=== PATIENT | female | born 1965 | race Caucasian/White ===

== ENCOUNTER → 2020-10-10 12:39 | Outpatient (CLI) | payer BC, SELFPAY ==
--- NOTE | 2020-10-10 12:44 | BI_ITS ---
MAMMOGRAPHY - BILATERAL SCREENING REASON FOR EXAM: Female, 55 years old. Routine annual screening examination. PERTINENT HISTORY: Non-contributory. TECHNIQUE: Digital bilateral breast minh (3D mammographic acquisition) in the CC and MLO projections. 2-D mediolateral oblique (MLO) and craniocaudad (CC) views of both breasts were obtained. CAD: Full Field Digital Mammography with Computer Added Detection was performed. COMPARISON: Comparison is made with prior outside examination dated 01/03/2015. FINDINGS: Breast Composition: The breasts are almost entirely fatty. There are no dominant masses or suspicious calcifications. Stable 5.6 mm well-defined nodule in the axillary region of the right breast suggestive of a small lymph node. No other significant abnormalities are identified. There has been no significant change since the prior study. BI/SCRN MAMM (CAD)W/MINH BILAT IMPRESSION: Stable bilateral screening mammogram. Yearly follow-up mammogram recommended. (A) ASSESSMENT CATEGORY: BIRADS Category 2: Benign. A letter regarding these results will be sent to the patient by the facility within 30 days. Approximately 10% of breast cancers are not detected by mammography. A normal mammogram should not delay biopsy of a clinically suspicious abnormality. [id number] Electronically Signed: Yony Stone MD at 11:20 EDT , Service support ,
== END ==
PROVIDERS: PCP Nurse Practitioner Family; Referring Provider Nurse Practitioner Family; Visit Provider Nurse Practitioner Family
DX: Z12.31 Encounter for screening mammogram for malignant neoplasm of breast (principal)
CPT/HCPCS: 77063; 77067

== ENCOUNTER 2021-08-28 17:00 | Outpatient (CLI) | payer BC, SELFPAY ==
[2021-08-28 17:28] LABS: Absolute Lymphocyte Count 2.41 X10^3/uL (0.83-4.51); Absolute Neutrophil Count 4.5 X10^3/uL (2.0-7.7); Basophil# 0.06 X10^3/uL; Basophil% 0.8 % (0-1); Eosinophil# 0.14 X10^3/uL; Eosinophils% 1.8 % (0-5); Hematocrit 41.7 % (37-47); Hemoglobin 14.7 g/dL (12.0-15.0); Lymphocyte # 2.41 X10^3/ul (0.83-4.51); Lymphocyte % 31.3 % (19-41); Mean Corp Hgb Conc 35.3 g/dL (32-36); Mean Corpuscular Hgb 31.4 pg (27.0-32.0); Mean Corpuscular Volume 89.1 fL (81-99); Mean Platelet Vol. 9.9 fl (6.2-12.0); Monocyte# 0.53 X10^3/uL; Monocyte% 6.9 % (0-10); NRBC Flagged by Analyzer 0 % (0-5); Neutrophil # 4.54 X10^3/uL (2.7-7.7); Neutrophil % 58.8 % (47-70); Platelet Count 197 K/mm3 (150-450); RBC Distribution Width CV 12.8 % (11.6-14.6); RBC Distribution Width SD 41.8 fl (35.1-43.9); Red Blood Count 4.68 M/mm3 (4.2-5.4); White Blood Count 7.7 K/mm3 (4.4-11.0)
[2021-08-28 17:57] LABS: ALB/GLOB Ratio 1.2 RATIO (0.9-2.4); AST(SGOT) 28 U/L (15-37); Alanine Aminotransfer ALT/SGPT 36 U/L (13-56); Albumin, Serum 4.3 g/dL (3.2-5.0); Alkaline Phosphatase 76 U/L (45-117); Anion Gap 2 (5-15); BUN 20 mg/dL (7-18); BUN/Creat Ratio 22.1 RATIO (10-20); Calcium,Total 9.2 mg/dL (8.5-10.1); Chloride 112 mmol/L (98-107); EST Glomerular Filtration Rate 69 mL/min (>60); Est Glom Filt Rate - Afr Amer 83 mL/min (>60); Globulin 3.5 g/dL (2.2-4.2); Glucose 93 mg/dL (74-106); Potassium 4.2 mmol/L (3.5-5.1); Protein, Total 7.8 g/dL (6.4-8.2); Sodium Level 141 mmol/L (136-145); Thyroid Stim Hormone (TSH) 1.29 uIU/mL (0.358-3.74)
[2021-08-29 09:12] LABS: Hepatitis C Antibody Non-Reactive (Nonreactive); Vitamin D,25 Hydroxy 49.9 ng/mL
== END 2021-08-28 23:59 | disposition home or self-care (01) ==
LOC: POLAB3 17:02
PROVIDERS: PCP Family Medicine Geriatric Medicine; Visit Provider Family Medicine Geriatric Medicine
DX: Z13.89 Encounter for screening for other disorder (principal); R53.83 Other fatigue; E55.9 Vitamin D deficiency, unspecified
CPT/HCPCS: 36415; 80053; 82306; 84443; 85025; 86803

== ENCOUNTER 2021-10-12 09:52 | Outpatient (CLI) | payer BC, SELFPAY ==
--- NOTE | 2021-10-12 09:54 | BI_ITS ---
MAMMOGRAPHY - BILATERAL SCREENING REASON FOR EXAM: Female, 56 years old. Routine annual screening examination. PERTINENT HISTORY: Non-contributory. TECHNIQUE: Digital bilateral breast minh (3D mammographic acquisition) in the CC and MLO projections. 2-D mediolateral oblique (MLO) and craniocaudad (CC) views of both breasts were obtained. CAD: Full Field Digital Mammography with Computer Added Detection was performed. COMPARISON: Comparison is made with prior study dated 10/10/2020. FINDINGS: Breast Composition: The breasts are almost entirely fatty. There are no dominant masses or suspicious calcifications. Stable 5.6 mm well-defined nodule in the axillary region of the right breast this most likely represents a small intramammary lymph node. No other significant abnormalities are identified. There has been no significant change since the prior study. BI/SCRN MAMM (CAD)W/MINH BILAT IMPRESSION: Stable bilateral screening mammogram. Yearly follow-up mammogram recommended. (A) ASSESSMENT CATEGORY: BIRADS Category 2: Benign. A letter regarding these results will be sent to the patient by the facility within 30 days. Approximately 10% of breast cancers are not detected by mammography. A normal mammogram should not delay biopsy of a clinically suspicious abnormality. [id number] Electronically Signed: Yony Stone MD at 11:15 EDT ,
== END 2021-10-12 23:59 | disposition home or self-care (01) ==
LOC: OPBI 09:53
PROVIDERS: PCP Family Medicine Geriatric Medicine; Visit Provider Family Medicine Geriatric Medicine
DX: Z12.31 Encounter for screening mammogram for malignant neoplasm of breast (principal)
CPT/HCPCS: 77063; 77067

== ENCOUNTER → 2022-08-30 | Outpatient (CLI) | payer BC, SELFPAY ==
[2022-08-30 17:13] LABS: Absolute Lymphocyte Count 1.95 X10^3/uL (0.83-4.51); Absolute Neutrophil Count 2.8 X10^3/uL (2.0-7.7); Basophil# 0.05 X10^3/uL; Basophil% 0.9 % (0-1); Eosinophil# 0.09 X10^3/uL; Eosinophils% 1.7 % (0-5); Hematocrit 43.9 % (37-47); Hemoglobin 14.4 g/dL (12.0-15.0); Lymphocyte # 1.95 X10^3/ul (0.83-4.51); Lymphocyte % 36.8 % (19-41); Mean Corp Hgb Conc 32.8 g/dL (32-36); Mean Corpuscular Hgb 29.7 pg (27.0-32.0); Mean Corpuscular Volume 90.5 fL (81-99); Mean Platelet Vol. 10.9 fl (6.2-12.0); Monocyte# 0.39 X10^3/uL; Monocyte% 7.4 % (0-10); NRBC Flagged by Analyzer 0 % (0-5); Neutrophil # 2.81 X10^3/uL (2.7-7.7); Platelet Count 187 K/mm3 (150-450); RBC Distribution Width CV 12.7 % (11.6-14.6); RBC Distribution Width SD 41.4 fl (35.1-43.9); Red Blood Count 4.85 M/mm3 (4.2-5.4); White Blood Count 5.3 K/mm3 (4.4-11.0)
[2022-08-30 17:32] LABS: Vitamin D,25 Hydroxy 65.4 ng/mL
[2022-08-30 17:46] LABS: ALB/GLOB Ratio 1.2 RATIO (0.9-2.4); AST(SGOT) 19 U/L (15-37); Alanine Aminotransfer ALT/SGPT 26 U/L (13-56); Albumin, Serum 4.2 g/dL (3.2-5.0); Alkaline Phosphatase 77 U/L (45-117); Anion Gap 7 (5-15); BUN 24 mg/dL (7-18); Calcium,Total 9.8 mg/dL (8.5-10.1); Chloride 110 mmol/L (98-107); Creatinine, Serum 0.96 mg/dL (0.55-1.02); EST Glomerular Filtration Rate 64 mL/min (>60); Est Glom Filt Rate - Afr Amer 77 mL/min (>60); Globulin 3.5 g/dL (2.2-4.2); Glucose 84 mg/dL (74-106); Potassium 4.2 mmol/L (3.5-5.1); Protein, Total 7.7 g/dL (6.4-8.2); Sodium Level 142 mmol/L (136-145); Thyroid Stim Hormone (TSH) 0.52 uIU/mL (0.358-3.74)
== END | disposition home or self-care (01) ==
LOC: POLAB3 13:02
PROVIDERS: PCP Family Medicine Geriatric Medicine; Visit Provider Family Medicine Geriatric Medicine
DX: R53.83 Other fatigue (principal); E55.9 Vitamin D deficiency, unspecified
CPT/HCPCS: 36415; 80053; 82306; 84443; 85025

== ENCOUNTER → 2023-02-21 | Outpatient (CLI) | payer BC, SELFPAY ==
[2023-02-21 17:02] LABS: Absolute Lymphocyte Count 2.02 X10^3/uL (0.83-4.51); Absolute Neutrophil Count 2.3 X10^3/uL (2.0-7.7); Basophil# 0.04 X10^3/uL; Basophil% 0.8 % (0-1); Eosinophil# 0.06 X10^3/uL; Eosinophils% 1.3 % (0-5); Hematocrit 41.9 % (37-47); Hemoglobin 13.8 g/dL (12.0-15.0); Lymphocyte # 2.02 X10^3/ul (0.83-4.51); Lymphocyte % 42.8 % (19-41); Mean Corp Hgb Conc 32.9 g/dL (32-36); Mean Corpuscular Hgb 29.7 pg (27.0-32.0); Mean Corpuscular Volume 90.1 fL (81-99); Mean Platelet Vol. 10.2 fl (6.2-12.0); Monocyte# 0.34 X10^3/uL; Monocyte% 7.2 % (0-10); NRBC Flagged by Analyzer 0 % (0-5); Neutrophil # 2.25 X10^3/uL (2.7-7.7); Neutrophil % 47.7 % (47-70); Platelet Count 189 K/mm3 (150-450); RBC Distribution Width CV 12.6 % (11.6-14.6); RBC Distribution Width SD 41.3 fl (35.1-43.9); Red Blood Count 4.65 M/mm3 (4.2-5.4); White Blood Count 4.7 K/mm3 (4.4-11.0)
[2023-02-21 17:24] LABS: ALB/GLOB Ratio 1.2 RATIO (0.9-2.4); AST(SGOT) 18 U/L (15-37); Alanine Aminotransfer ALT/SGPT 21 U/L (13-56); Albumin, Serum 3.9 g/dL (3.2-5.0); Alkaline Phosphatase 70 U/L (45-117); Anion Gap 7 (5-15); BUN 15 mg/dL (7-18); BUN/Creat Ratio 18.8 RATIO (10-20); Calcium,Total 8.9 mg/dL (8.5-10.1); Chloride 111 mmol/L (98-107); EST Glomerular Filtration Rate 79 mL/min (>60); Est Glom Filt Rate - Afr Amer 95 mL/min (>60); Globulin 3.3 g/dL (2.2-4.2); Glucose 108 mg/dL (74-106); Potassium 3.8 mmol/L (3.5-5.1); Protein, Total 7.2 g/dL (6.4-8.2); Sodium Level 143 mmol/L (136-145); Thyroid Stim Hormone (TSH) 0.33 uIU/mL (0.358-3.74)
== END | disposition home or self-care (01) ==
PROVIDERS: PCP Family Medicine Geriatric Medicine; Visit Provider Family Medicine Geriatric Medicine
DX: R53.83 Other fatigue (principal)
CPT/HCPCS: 36415; 80053; 84443; 85025

== ENCOUNTER 2023-07-24 09:20 | Inpatient (IN) | payer BC, SELFPAY ==
[2023-07-24] VITALS (18 sets, daily range): BP systolic 85–129; BP diastolic 55–108; PULSE 97–183; RESP 17–27; TEMP 35.5–36.7; O2SAT 95–100; BMI 31.8; BMI 31.5
--- NOTE | 2023-07-24 09:44 | EKG12_ITS ---
Test Reason : NECK PAIN Blood Pressure : / mmHG Vent. Rate : 183 BPM Atrial Rate : 000 BPM P-R Int : 000 ms QRS Dur : 070 ms QT Int : 242 ms P-R-T Axes : 000 -06 033 degrees QTc Int : 422 ms Critical Test Result: High HR Atrial fibrillation with rapid ventricular response Nonspecific T wave abnormality Abnormal ECG Confirmed by ZOEY PEÑALOZA, CORINE ([id number]), proposal editor ELHAM MIXON ([id number]) on 07/26/2023 6:56:19 AM Referred By: RU/PL Confirmed By:CORINE GREER MD
--- NOTE | 2023-07-24 09:47 | NURSING ---
NO OLD EKGS
--- NOTE | 2023-07-24 09:49 | EDS_ITS ---
HPI History of Present Illness Chief Complaint: Other, Pain/Inj Informant: patient and spouse/S.O. Narrative Narrative: Patient presents with palpitations. She states she thinks this is probably been going on at least a couple days. But she is not sure of the specific onset. She is on metoprolol for years related to nonspecific tachycardia that sounds like it may have been diagnosed when she was diagnosed with hypothyroidism. But she has never had A-fib, atrial flutter, SVT or other specific tachycardic rhythm that she knows of. She has never had heart disease or stents. Last check of her thyroid function was about 6 months ago. She has no chest pain. Sitting still she is not dyspneic. But if she walks up the hill or significant exertion she feels more short of breath than she normally would. She is a send actually asymptomatic sitting in bed other than feeling her rate go a little quick. She states there is a very strong family history of atrial fibrillation but she has never had it. PFSH [facility] Home Medications metoprolol succinate 25 mg tablet,extended release 24 hr 25 mg PO DAILY 07/24/23 [History Last Taken Unknown] thyroid (pork) 60 mg tablet ([place] Thyroid) 60 mg PO DAILY 07/24/23 [History Last Taken Unknown] Allergy/AdvReac Type Severity Reaction Status Date / Time No Known Allergies Allergy Verified 07/24/23 09:51 Social History Smoking Status: Never smoker ROS ROS ED ROS Narrative A complete review of systems was performed and is negative except as documented in the history of present illness. Some specific details below. Constitutional: No recent fevers or chills. Has not felt ill. EYE: No discharge, visual complaints, or pain. ENT: No difficulty swallowing. No swelling. No pain. No reflux symptoms. CV: See history of present illness. Respiratory: See history of present illness. Only short of breath with more significant exertion. Then it calms down when she rests. GI: No abdominal pain. No nausea vomiting diarrhea. No blood in stool. : No frequency dysuria or hematuria. Musculoskeletal: No recent trauma. No pains. No swelling. Skin: No rash. Nondiaphoretic. Neuro: No weakness or numbness. Endocrine: No polyuria or polydipsia. EXAM Physical Exam Narrative Exam Narrative: CONSTITUTIONAL: Patient is nontoxic in appearance. The patient looks comfortable. Work of breathing looks normal. Patient actually looks very calm in bed. Despite her high heart rate she looks amazingly comfortable. HEENT: No notable trauma. Mucous membranes moist. No sinus tenderness. No indication of pain with swallowing. EYES: No conjunctival injection. No proptosis. NECK:No JVD. No stridor. CARDIOVASCULAR: Tachycardic rate. Irregular rhythm. No notable murmur. No JVD. RESPIRATORY: No respiratory distress. Breathing is unlabored. No wheezes. No rhonchi. No rales at either base. No pain with a deep breath. No chest wall tenderness. GASTROINTESTINAL: Not distended. Bowel sounds are normal. No tenderness. No guarding. No rebound. No palpable mass. No bruit is heard. GENITOURINARY: No tenderness over the bladder. No CVA tenderness. MUSCULOSKELETAL: Atraumatic. No peripheral edema. No cord. No tenderness along the deep venous system. No asymmetry. No distended veins. NEUROLOGICAL: Patient is alert and appropriate. No focal deficit noted. SKIN: No noted rashes. No diaphoresis. PSYCHIATRIC: Patient is calm. Mood is appropriate. Const Vital Signs: 07/24/23 09:23 07/24/23 09:57 07/24/23 09:58 Temperature 95.9 F L Temperature Source Temporal Pulse Rate 183 H 173 H Respiratory Rate 18 19 H Respiratory Effort Short of Breath Respiratory Pattern Tachypnea Blood Pressure 129/95 H 104/84 H Blood Pressure Mean 106 90 Blood Pressure Source Blood Pressure Position Blood Pressure Location Pulse Ox 100 97 Oxygen Delivery Method Room Air Room Air 07/24/23 10:09 07/24/23 10:39 Temperature Temperature Source Pulse Rate 179 H 157 H Respiratory Rate 19 H 27 H Respiratory Effort Respiratory Pattern Blood Pressure 129/88 H 126/108 H Blood Pressure Mean 101 114 Blood Pressure Source Monitor Monitor Blood Pressure Position Sitting Sitting Blood Pressure Location Right Arm Right Arm Pulse Ox 97 96 Oxygen Delivery Method Room Air Room Air MDM MDM MDM Narrative Medical decision making narrative: Patient CBC is normal including no anemia. Knoop Patient's electrolytes are overall unremarkable. Glucose is minimally up at 112. Her troponin is negative at 5 despite what seems to be likely a couple days of symptoms. Her TSH happily is normal at 0.92. My independent interpretation of the patient's single view chest x-ray shows mild eventration of the right diaphragm final reading is similar. Patient was started on diltiazem. She is already on a low-dose of metoprolol 25 mg with which she took this morning. As we are able to adjust diltiazem a little easier we did start this. Her heart rate is down from mid 180s to about 145/155. She is still in atrial fibrillation. Her blood pressure is also come down with this a little bit. We have gotten her some fluids. She is not toxic. She is still very comfortable. We will have to slowly bring her rate down. But I think she is stable for admission. She has had almost a 20% reduction when I was in the room of her heart rate. I did discuss the case with hospitalist. With her being on oral meds, nausea now IV drip, moderate response but slight decrease of blood pressure she will be a full admission. Lab Data Attestation: I reviewed the patient's lab results. Labs: Laboratory Results - last 24 hr 07/24/23 09:49 WBC 6.3 RBC 4.78 Hgb 14.2 Hct 41.9 MCV 87.7 MCH 29.7 MCHC 33.9 RDW Std Deviation 40.9 RDW Coeff of Rich 12.9 Plt Count 209 MPV 10.7 Immature Gran % (Auto) 0.300 Neut % (Auto) 61.3 Lymph % (Auto) 30.1 [place] % (Auto) 6.7 Eos % (Auto) 1.0 Baso % (Auto) 0.6 Absolute Neuts (auto) 3.9 Absolute Lymphs (auto) 1.89 Nucleated RBC % 0 PT 13.3 INR 1.0 APTT 27.1 Sodium 143 Potassium 4.0 Chloride 117 H Carbon Dioxide 20.0 L Anion Gap 6 BUN 18 Creatinine 1.01 Estim Creat Clear Calc 66.82 Est GFR (MDRD) Af Amer 72 Est GFR (MDRD) Non-Af 60 BUN/Creatinine Ratio 17.8 Glucose 112 H Calcium 9.7 Troponin I High Sens 5 TSH 0.92 Radiography Diagnostic Testing: Clinical Impression(s) from Imaging Studies Chest X-Ray 07/24/23 10:00 IMPRESSION: Elevation of the right hemidiaphragm. The lungs are clear. Electronically Signed: Yony Stone MD at 10:25 EST , EKG Initial EKG: Comments: A my independent interpretation of her EKG shows atrial fibrillation with a rate at 183. No ventricular ectopy noted. Despite the high rate, no significant ST elevation or depression. QRS duration and QTc are measured as normal. Discharge Plan Dx/Rx/DC Orders Clinical Impression: Hx of thyroid disease, Family history of atrial dilatation, Atrial fibrillation with rapid ventricular response Disposition Disposition: Acute Care Hospital [facility]
[2023-07-24 09:58] LABS: Absolute Lymphocyte Count 1.89 X10^3/uL (0.83-4.51); Absolute Neutrophil Count 3.9 X10^3/uL (2.0-7.7); Basophil# 0.04 X10^3/uL; Basophil% 0.6 % (0-1); Eosinophil# 0.06 X10^3/uL; Hematocrit 41.9 % (37-47); Hemoglobin 14.2 g/dL (12.0-15.0); Lymphocyte # 1.89 X10^3/ul (0.83-4.51); Lymphocyte % 30.1 % (19-41); Mean Corp Hgb Conc 33.9 g/dL (32-36); Mean Corpuscular Hgb 29.7 pg (27.0-32.0); Mean Corpuscular Volume 87.7 fL (81-99); Mean Platelet Vol. 10.7 fl (6.2-12.0); Monocyte# 0.42 X10^3/uL; Monocyte% 6.7 % (0-10); NRBC Flagged by Analyzer 0 % (0-5); Neutrophil # 3.85 X10^3/uL (2.7-7.7); Neutrophil % 61.3 % (47-70); Platelet Count 209 K/mm3 (150-450); RBC Distribution Width CV 12.9 % (11.6-14.6); RBC Distribution Width SD 40.9 fl (35.1-43.9); Red Blood Count 4.78 M/mm3 (4.2-5.4); White Blood Count 6.3 K/mm3 (4.4-11.0)
--- NOTE | 2023-07-24 10:00 | RAD_ITS ---
STUDY: X-RAY CHEST REASON FOR EXAM: Female, 57 years old. sob TECHNIQUE: Single AP portable view of the chest. COMPARISON: None. FINDINGS: EKG electrodes are seen. Elevation of the right hemidiaphragm. There is no demonstrated pleural abnormality. Normal size heart. Normal mediastinum and fany. Normal visualized pulmonary arteries. Normal visualized aortic arch and descending thoracic aorta. There are degenerative changes of the visualized thoracic spine. Normal visualized ribs, clavicles, and shoulders. There is no demonstrated abnormality of the visualized soft tissue structures of the upper abdomen. RAD/Chest 1 View (Portable) IMPRESSION: Elevation of the right hemidiaphragm. The lungs are clear. Electronically Signed: Yony Stone MD at 10:25 EST ,
[2023-07-24] MEDS: 0.9% Normal Saline (1000mL) 1,000 ML 1000 ML IV (10:08)
[2023-07-24] MEDS: Diltiazem 125 MG in Dextrose 5%-Water (100mL Bag) 100 ML CONT INF (10:09)
[2023-07-24 10:13] LABS: Prothrombin Time (Protime)PT. 13.3 SECONDS (11.7-14.9)
[2023-07-24 10:14] LABS: Partial Thromboplast Time 27.1 Seconds (24.1-36.2)
[2023-07-24 10:23] LABS: Anion Gap 6 (5-15); BUN 18 mg/dL (7-18); BUN/Creat Ratio 17.8 RATIO (10-20); Calcium,Total 9.7 mg/dL (8.5-10.1); Chloride 117 mmol/L (98-107); Creatinine, Serum 1.01 mg/dL (0.55-1.02); EST Glomerular Filtration Rate 60 mL/min (>60); Est Glom Filt Rate - Afr Amer 72 mL/min (>60); Estimated Creatinine Clearance 66.82 ml/min; Glucose 112 mg/dL (74-106); Sodium Level 143 mmol/L (136-145); Thyroid Stim Hormone (TSH) 0.92 uIU/mL (0.358-3.74); Troponin-I HS 5 pg/mL (3.0-54.0)
--- NOTE | 2023-07-24 11:13 | NURSING ---
DR MICKY TALBERT
--- NOTE | 2023-07-24 11:18 | HP.PCM.HOS_ITS ---
HPI - General General Date of Admission: 07/24/23 Date of Service: 07/24/23 Chief Complaint: Lightheadedness HPI Narrative FIONA LEES, is a 57 F who presents with lightheadedness. Patient has past medical history significant for hypothyroidism for which patient takes [place] Thyroid. Patient also has history of supraventricular tachycardia for which she is on beta-blockers. Patient symptoms started 4 days prior. Woke up on the morning of 07/21/2023 feeling weird. Had recurrence over the next couple of days. On the morning of admission woke up feeling lightheadedness. Patient has a son who is apparently a nurse who did check outpatient and felt patient was in A-fib patient was therefore sent to the ED. In the emergency department EKG obtained demonstrated A-fib with RVR patient started on Cardizem drip admitted to a monitored bed for further management [facility] Home Medications metoprolol succinate 25 mg tablet,extended release 24 hr 25 mg PO DAILY BLOOD PRESSURE 07/24/23 [History Last Taken Unknown] thyroid (pork) 60 mg tablet ([place] Thyroid) 60 mg PO DAILY THYROID 07/24/23 [History Last Taken Unknown] Allergy/AdvReac Type Severity Reaction Status Date / Time No Known Allergies Allergy Verified 07/24/23 09:51 Social History Smoking Status: Never smoker ROS ROS Narrative GENERAL: denies fever, chills, night sweats, weight loss, anorexia HEENT: denies headache, sinus congestion, or drainage, dysphagia RESPIRATORY: denies cough, sputum production, shortness of breath, CARDIAC: denies chest pain, orthopnea, PND GASTROINTESTINAL: denies abdominal pain, nausea, vomiting, melena, GENITOURINARY: denies dysuria, urgency, frequency, heamaturia EXTREMITY: denies swelling MUSCULOSKELETAL: denies current joint pain or tenderness NEUROLOGIC: denies focal numbness, weakness, tingling HEMATOLOGIC: denies easy bruising and/or hemorrhage INTEGUMENT: denies rashes PSYCHIATRIC: denies suicidal or homicidal ideation Vital Signs Vital Signs Vital Signs: 07/24/23 09:23 07/24/23 09:57 07/24/23 09:58 Temperature 95.9 F L Temperature Source Temporal Pulse Rate 183 H 173 H Respiratory Rate 18 19 H Respiratory Effort Short of Breath Respiratory Pattern Tachypnea Blood Pressure 129/95 H 104/84 H Blood Pressure Mean 106 90 Blood Pressure Source Blood Pressure Position Blood Pressure Location Pulse Ox 100 97 Oxygen Delivery Method Room Air Room Air 07/24/23 10:09 07/24/23 10:39 07/24/23 11:14 Temperature Temperature Source Pulse Rate 179 H 157 H 167 H Respiratory Rate 19 H 27 H 20 H Respiratory Effort Respiratory Pattern Blood Pressure 129/88 H 126/108 H 103/64 Blood Pressure Mean 101 114 77 Blood Pressure Source Monitor Monitor Blood Pressure Position Sitting Sitting Blood Pressure Location Right Arm Right Arm Pulse Ox 97 96 97 Oxygen Delivery Method Room Air Room Air Room Air Weight Weight: 86.7 kg Body Mass Index (BMI) 31.8 Physical Exam Narrative GENERAL: cooperative HEENT: Atraumatic; normocephalic EYES; Anicteric, Normal Conjunctiva NECK; supple, normal thyroid, RESPIRATORY: Diminished to auscultation CARDIOVASCULAR: Regular S1 S2, GI: soft, normoactive bowel sounds, : No Renal angle tenderness; EXTREMITIES: No edema, no clubbing, MUSCULOSKELETAL: no muscle wasting NEURO: Awake; no lateralizing signs. SKIN: No Rash PSYCH; Flat affect Results Lab / Micro Data 07/24/23 09:49 07/24/23 09:49 Labs: Laboratory Results - last 24 hr 07/24/23 09:49: WBC 6.3, RBC 4.78, Hgb 14.2, Hct 41.9, MCV 87.7, MCH 29.7, MCHC 33.9, RDW Std Deviation 40.9, RDW Coeff of Rich 12.9, Plt Count 209, MPV 10.7, Immature Gran % (Auto) 0.300, Neut % (Auto) 61.3, Lymph % (Auto) 30.1, [place] % (Auto) 6.7, Eos % (Auto) 1.0, Baso % (Auto) 0.6, Absolute Neuts (auto) 3.9, Absolute Lymphs (auto) 1.89, Nucleated RBC % 0, PT 13.3, INR 1.0, APTT 27.1, Sodium 143, Potassium 4.0, Chloride 117 H, Carbon Dioxide 20.0 L, Anion Gap 6, BUN 18, Creatinine 1.01, Estim Creat Clear Calc 66.82, Est GFR (MDRD) Af Amer 72, Est GFR (MDRD) Non-Af 60, BUN/Creatinine Ratio 17.8, Glucose 112 H, Calcium 9.7, Troponin I High Sens 5, TSH 0.92 Imagaing Radiology Impression Chest X-Ray 07/24/23 10:00 IMPRESSION: Elevation of the right hemidiaphragm. The lungs are clear. Electronically Signed: Yony Stone MD at 10:25 EST , Assessment & Plan Assessment/Plan (1) Atrial fibrillation with rapid ventricular response: PLAN: Plan Patient is a 57-year-old lady admitted with A-fib with RVR 1. New onset A-fib with RVR -onset of symptoms more than 48 hours, patient outside the window for cardioversion. Admitted to a monitored bed started on Cardizem drip titrated to keep heart rate less than 100. As part of the management ordered 2D echo and Cardizem drip. Patient's [id number] Score for Atrial Fibrillation Stroke Risk was only 1 patient was therefore placed on only antiplatelet aspirin. 2. Hypothyroidism ? Patient is on [place] Thyroid 3. Class I obesity with BMI of 32 ? Weight loss advised 4. DVT prophylaxis ? Lovenox Time spent in the patient's overall evaluation,decision-making process, review of diagnostic data, adjustment of management, discussion with other providers, nursing nursing and ancillary staff involved in patient's care documentation, 55 Minutes Charges/Coding Visit Charges Inpatient E&M: 02422 Init Hosp L2
--- NOTE | 2023-07-24 11:19 | NURSING ---
PCU KITTOE AFIB RVR
--- OUTSIDE RECORDS SUMMARY | 2023-07-24 11:44 | XMS RPT_ITS | CCD ---
Author Name Unknown Address [address] [place] [address] Organization [facility] Care Team Providers Care Tamale Maker Name Role Phone JESSI CUBA Attending Unavailable JD ROGEL Admitting Unavailable ELDA BRANHAM MD Consulting Unavailable JD ROGEL Attending Unavailable JD ROGEL Primary Care Unavailable PROVIDER, UNKNOWN Consulting Unavailable PROVIDER, UNKNOWN Consulting Unavailable Allergies Allergy Classification Reported Allergen(s) Allergy Type Date of Onset Reaction(s) Facility (1 source) Seasonal allergy; Translations: [SEASONAL ALLERGIES] Propensity to adverse reactions (disorder) 3 [facility] Repository Results Test Name Value Interpretation Reference Range Facil ity Encounters Encounter Date Encounter Type Care Provider Facility Start: 02-21-2023 End: 02-21-2023 ambulatory JD ROGEL [facility] Start: 12-05-2017 End: 12-06-2017 Patient encounter procedure JESSI ROSA ELENA [facility] Payers Date Payer Category Payer Unknown [id number] Unknown [id number] Summary Purpose Family History No Family History Records FoundNo Family History Records Found Advance Directives No Advanced Directives Records FoundNo Advanced Directives Records Found Additional Source Comments INFORMATION SOURCE (unrecogn ized section and content) DATE CREATED AUTHOR AUTHOR'S ORGANIZ ATION 02/23/2023 [facility] FOR RECORDS PERTAINING TO PATIENTS WHO ARE OR HAVE BEEN ENROLLED IN A CHEMICAL DEPENDENCY/SUBSTANCEABUSE PROGRAM, SOME INFORMATION MAY BE OMITTED. This clinical summary was aggregated from multiple sources. Caution should be exercised in using it in the provision of clinical care. This summary normalizes information from multiple sources, and as a consequence, information in this document may materially change the coding, format and clinical context of patient data. In addition, data may be omitted in some cases. CLINICAL DECISIONS SHOULD BE BASED ON THE PRIMARY CLINICAL RECORDS. [facility]. provides no warranty or guarantee of the accuracy or completeness of information in this document.
--- NOTE | 2023-07-24 12:22 | ECHOD_ITS ---
Reason For Study: New Onset Afib/Flutter Procedure This was a 2D Doppler, Color Flow transthoracic echocardiogram. Exam performed portable in patient room. Left Ventricle Normal LV size. Left ventricular systolic function is normal. The estimated ejection fraction is 55 %. No regional wall motion abnormalities noted. Right Ventricle Normal RV size. Normal systolic function. Atria Normal left atrium. Normal right atrium. Mitral Valve Normal mitral valve. Mild (1+) eccentric mitral valve insufficiency. Tricuspid Valve Normal tricuspid valve. Mild (1+) tricuspid valve insufficiency. Pulmonary artery systolic pressure is 30 mmHg. Aortic Valve Trisinus/trileaflet aortic valve. Pulmonic Valve The pulmonic valve is not well visualized. Great Vessels Normal aortic root. The pulmonary artery is normal size. Normal inferior vena cava. Pericardium/Pleural No pericardial effusion. MMode/2D Measurements & Calculations LVIDd: 4.5 cm IVSd: 1.0 cm Ao root diam: 3.1 cm LVIDs: 2.9 cm LVPWd: 0.80 cm LA dimension: 4.1 cm RVDd: 3.1 cm FS: 36.3 % LAV(MOD-bp): 63.9 ml LA A4 area: 20.3 cm2 RA A4 area: 15.6 cm2 LAV(MOD-bp) Indexed: 33.1 ml/m2 LAV(MOD-sp2): 68.2 ml LAV(MOD-sp4): 52.2 ml Doppler Measurements & Calculations MV E max ramon: 110.9 cm/sec MV V2 max: 126.0 cm/sec Ao V2 max: 109.8 cm/sec MV max P.4 mmHg Ao max P.8 mmHg MV V2 mean: 60.6 cm/sec Ao V2 mean: 76.3 cm/sec MV mean P.0 mmHg Ao mean P.7 mmHg MV V2 VTI: 24.9 cm Ao V2 VTI: 19.6 cm AV (velocity ratio): 1.0 LV V1 max: 118.6 cm/sec MR max ramon: 423.4 cm/sec PA V2 max: 111.0 cm/sec LV V1 max P.7 mmHg MR max P.7 mmHg PA V2 mean: 81.5 cm/sec LV V1 mean P.2 mmHg MR mean ramon: 367.7 cm/sec LV V1 mean: 83.4 cm/sec MR mean P.6 mmHg LV V1 VTI: 19.8 cm MR VTI: 120.9 cm TR max ramon: 255.8 cm/sec TR max P.2 mmHg ECHO/Echo Complete Interpretation Summary Normal LV size. Left ventricular systolic function is normal. The estimated ejection fraction is 55 %. Mild (1+) eccentric mitral valve insufficiency. Ordering Physician: Quinn Arnold Referring Physician: Travon Mata Chi Performed By: Lefty Elizondo RCS
[2023-07-24] MEDS: 0.9% Normal Saline (1000mL) 1,000 ML 100 ML IV (12:43)
[2023-07-24 13:00] LABS: D-Dimer Quantitative (DVT/PE) 0.69 FEU/ug/m (0.27-0.49)
[2023-07-24 13:12] LABS: BNP,B-Type NATRIURETIC PEPTIDE 442.7 pg/mL (0-100)
[2023-07-24 14:01] LABS: Troponin-I HS 5 pg/mL (3.0-54.0)
--- NOTE | 2023-07-24 14:13 | VDLE_ITS ---
Reason For Study: Elevated D Dimer RIGHT LEFT GSV is normal. GSV is normal. CFV is compressible, spontaneous, phasic, CFV is compressible, spontaneous, phasic, competent and demonstrates normal competent, and demonstrates normal augmentation. augmentation. FV is compressible, spontaneous, phasic, FV is compressible, spontaneous, phasic, competent and demonstrates normal competent and demonstrates normal augmentation. augmentation. POP V is compressible, spontaneous, phasic, POP V is compressible, spontaneous, phasic, competent and demonstrates normal competent and demonstrates normal augmentation. augmentation. T/P Trunk is compressible. T/P Trunk is compressible. PTV is compressible. PTV is compressible. RT PerV is compressible. LT PerV is compressible. Procedure This is a venous duplex using B-mode, color flow and spectral Doppler. Exam performed portable in patient room. The exam was diagnostic. A preliminary report was called and/or faxed to Segun COULTER RN. VL/Venous Duplex US - Niall Extrem Interpretation Summary No evidence for acute deep venous thrombosis bilateral lower extremities with p atent and compressible bilateral great saphenous veins. Ordering Physician: Quinn Arnold Referring Physician: Travon Mata Chi Performed By: Dwain Swann RVSue
--- NOTE | 2023-07-24 16:00 | CT_ITS ---
STUDY: CTA CHEST REASON FOR EXAM: Female, 57 years old. Elevated D-dimer rule out pulmonary embolism RADIATION DOSAGE (If Supplied By Facility): CTDIvol = ( 11.61 ) mGy, DLP = ( 485.72 ) mGycm TECHNIQUE: The examination was performed with the intravenous administration of IV 100mL Isovue-370. Post-processing of the angiographic images was performed, with multiplanar reformation and 3D reconstruction. Individualized dose optimization techniques were used for this CT. COMPARISON: None. FINDINGS: Normal enhancement of the main pulmonary artery and right and left pulmonary arteries. Normal enhancement of the bilateral peripheral pulmonary arteries. There is no demonstrated pulmonary embolism. Normal thoracic aorta and visualized great vessels. There is no demonstrated aortic dissection. There is a single pacemaker electrode lead in satisfactory position. Normal mediastinum. Normal hilar regions. Normal visualized trachea and bronchi. The lungs are well expanded. Bilateral lower lobe and mild right middle lobe atelectasis, otherwise lung francois are clear. Normal pleura. Normal chest wall structures. Multilevel degenerative disease of the spine with no acute fracture or subluxation. Normal visualized upper abdomen. CT/CTA Chest W/WO Contrast IMPRESSION: Negative CTA chest examination, without a demonstrated pulmonary embolism or arterial dissection. Multilobar basilar atelectasis, otherwise no acute cardiac pulmonary disease. Electronically Signed: Mera Hutton MD at 16:55 EST ,
[2023-07-24] MEDS: 0.9% Saline Lock 10 ML Syringe IV (16:18)
[2023-07-24] MEDS: Acetaminophen 325 MG Tablet 650 MG PO ×2 (16:22→22:29)
[2023-07-24] MEDS: Diltiazem 125 MG in Dextrose 5%-Water (100mL Bag) 100 ML 15 MG CONT INF (16:49)
[2023-07-24 17:50] LABS: Troponin-I HS 5 pg/mL (3.0-54.0)
--- NOTE | 2023-07-24 20:15 | NURSING ---
Emergency docementation in use
[2023-07-24] MEDS: MELATONIN 3 MG TABLET PO (22:30)
[2023-07-25] VITALS (19 sets, daily range): BP systolic 91–109; BP diastolic 50–83; PULSE 86–118; RESP 15–25; TEMP 35.6–36.6; O2SAT 93–100
[2023-07-25] MEDS: Diltiazem 125 MG in Dextrose 5%-Water (100mL Bag) 100 ML 15 MG CONT INF ×2 (01:47→08:11)
[2023-07-25] MEDS: 0.9% Normal Saline (1000mL) 1,000 ML 100 ML IV (01:47)
[2023-07-25] MEDS: Acetaminophen 325 MG Tablet 650 MG PO (05:44)
[2023-07-25 07:08] LABS: Absolute Lymphocyte Count 1.69 X10^3/uL (0.83-4.51); Absolute Neutrophil Count 3.6 X10^3/uL (2.0-7.7); Basophil# 0.04 X10^3/uL; Basophil% 0.7 % (0-1); Eosinophil# 0.08 X10^3/uL; Eosinophils% 1.4 % (0-5); Hematocrit 37.3 % (37-47); Hemoglobin 12.3 g/dL (12.0-15.0); Lymphocyte # 1.69 X10^3/ul (0.83-4.51); Lymphocyte % 28.5 % (19-41); Mean Corpuscular Hgb 29.1 pg (27.0-32.0); Mean Corpuscular Volume 88.4 fL (81-99); Mean Platelet Vol. 10.7 fl (6.2-12.0); Monocyte# 0.46 X10^3/uL; Monocyte% 7.8 % (0-10); NRBC Flagged by Analyzer 0 % (0-5); Neutrophil # 3.64 X10^3/uL (2.7-7.7); Neutrophil % 61.4 % (47-70); Platelet Count 190 K/mm3 (150-450); RBC Distribution Width CV 13.2 % (11.6-14.6); RBC Distribution Width SD 42.5 fl (35.1-43.9); Red Blood Count 4.22 M/mm3 (4.2-5.4); White Blood Count 5.9 K/mm3 (4.4-11.0)
[2023-07-25 07:53] LABS: Anion Gap 7 (5-15); BUN 13 mg/dL (7-18); BUN/Creat Ratio 15.8 RATIO (10-20); Calcium,Total 8.7 mg/dL (8.5-10.1); Chloride 117 mmol/L (98-107); Creatinine, Serum 0.82 mg/dL (0.55-1.02); EST Glomerular Filtration Rate 76 mL/min (>60); Est Glom Filt Rate - Afr Amer 92 mL/min (>60); Estimated Creatinine Clearance 81.93 ml/min; Glucose 91 mg/dL (74-106); Magnesium 2.1 mg/dL (1.6-2.6); Phosphorus 3.3 mg/dL (2.5-4.9); Potassium 3.8 mmol/L (3.5-5.1); Sodium Level 146 mmol/L (136-145)
[2023-07-25] MEDS: Aspirin E.C. 81 MG Tablet PO (08:09)
--- NOTE | 2023-07-25 09:32 | PN.HOSP_ITS ---
Reason for Visit Reason for Visit: Diagnoses Unspecified atrial fibrillation (07/24/23) Subjective Subjective Patient seen heart rate relatively well-controlled. Plan for patient to be discharged home with Cardizem and apixaban for subsequent follow-up with cardiology for possible cardioversion as outpatient Objective Data Objective Data Vital Signs: Vital Signs Temp Pulse Resp BP Pulse Ox O2 Del Method 97.7 F L 98 20 H 97/50 L 99 Room Air 07/25/23 08:00 07/25/23 09:00 07/25/23 09:00 07/25/23 09:00 07/25/23 09:00 07/25/23 09:00 Oxygen Delivery Method Room Air Weight: 85.9 kg Body Mass Index (BMI) 31.5 Intake & Output: Intake and Output for Last 24 Hours 07/23/23 07/24/23 07/25/23 23:59 23:59 23:59 Intake Total 2664.83 / 2919.83 620.50 / 620.50 Balance 2664.83 / 2919.83 620.50 / 620.50 Lab / Micro Data 07/25/23 06:40 07/25/23 06:40 Labs: Laboratory Results - last 24 hr 07/24/23 09:49: WBC 6.3, RBC 4.78, Hgb 14.2, Hct 41.9, MCV 87.7, MCH 29.7, MCHC 33.9, RDW Std Deviation 40.9, RDW Coeff of Rich 12.9, Plt Count 209, MPV 10.7, Immature Gran % (Auto) 0.300, Neut % (Auto) 61.3, Lymph % (Auto) 30.1, [place] % (Auto) 6.7, Eos % (Auto) 1.0, Baso % (Auto) 0.6, Absolute Neuts (auto) 3.9, Absolute Lymphs (auto) 1.89, Nucleated RBC % 0, PT 13.3, INR 1.0, APTT 27.1, D- Dimer Quant (PE/DVT) 0.69 H*, Sodium 143, Potassium 4.0, Chloride 117 H, Carbon Dioxide 20.0 L, Anion Gap 6, BUN 18, Creatinine 1.01, Estim Creat Clear Calc 66.82, Est GFR (MDRD) Af Amer 72, Est GFR (MDRD) Non-Af 60, BUN/Creatinine Ratio 17.8, Glucose 112 H, Calcium 9.7, Troponin I High Sens 5, B-Natriuretic Peptide 442.7 H, TSH 0.92 07/24/23 13:16: Troponin I High Sens 5 07/24/23 16:37: Troponin I High Sens 5 07/25/23 06:40: WBC 5.9, RBC 4.22, Hgb 12.3, Hct 37.3, MCV 88.4, MCH 29.1, MCHC 33.0, RDW Std Deviation 42.5, RDW Coeff of Rich 13.2, Plt Count 190, MPV 10.7, Immature Gran % (Auto) 0.200, Neut % (Auto) 61.4, Lymph % (Auto) 28.5, [place] % (Auto) 7.8, Eos % (Auto) 1.4, Baso % (Auto) 0.7, Absolute Neuts (auto) 3.6, Absolute Lymphs (auto) 1.69, Nucleated RBC % 0, Sodium 146 H, Potassium 3.8, Chloride 117 H, Carbon Dioxide 22.0, Anion Gap 7, BUN 13, Creatinine 0.82, Estim Creat Clear Calc 81.93, Est GFR (MDRD) Af Amer 92, Est GFR (MDRD) Non-Af 76, BUN/Creatinine Ratio 15.8, Glucose 91, Calcium 8.7, Phosphorus 3.3, Magnesium 2.1 Radiography Diagnostic Testing: Radiology Impression Chest X-Ray 07/24/23 10:00 IMPRESSION: Elevation of the right hemidiaphragm. The lungs are clear. Electronically Signed: Yony Stone MD at 10:25 EST , Venous Doppler Study 07/24/23 14:13 Interpretation Summary No evidence for acute deep venous thrombosis bilateral lower extremities with patent and compressible bilateral great saphenous veins. Ordering Physician: Quinn Arnold Referring Physician: Travon Mata Chi Performed By: Dwain Swann RVT Chest CTA 07/24/23 16:00 IMPRESSION: Negative CTA chest examination, without a demonstrated pulmonary embolism or arterial dissection. Multilobar basilar atelectasis, otherwise no acute cardiac pulmonary disease. Electronically Signed: Mera Hutton MD at 16:55 EST Reading Location ID and State: [address] [place] [address] , Service support , Physical Exam Narrative GENERAL: cooperative HEENT: Atraumatic; normocephalic EYES; Anicteric, Normal Conjunctiva NECK; supple, normal thyroid, RESPIRATORY: Diminished to auscultation CARDIOVASCULAR: Regular S1 S2, GI: soft, normoactive bowel sounds, : No Renal angle tenderness; EXTREMITIES: No edema, no clubbing, MUSCULOSKELETAL: no muscle wasting NEURO: Awake; no lateralizing signs. SKIN: No Rash PSYCH; Flat affect Assessment & Plan Assessment/Plan (1) Atrial fibrillation with rapid ventricular response: PLAN: Plan Patient is a 57-year-old lady admitted with A-fib with RVR 1. New onset A-fib with RVR -onset of symptoms more than 48 hours, patient outside the window for card ioversion. Admitted to a monitored bed started on Cardizem drip titrated to keep heart rate less than 100. As part of the management ordered 2D echo and Cardizem drip. Patient's [id number] Score for Atrial Fibrillation Stroke Risk was only 1 patient was therefore placed on only antiplatelet aspirin. ? 07/25/2023;Patient seen heart rate relatively well-controlled. Plan for patient to be discharged home with Cardizem and apixaban for subsequent follow- up with cardiology for possible cardioversion as outpatient 2. Hypothyroidism ? Patient is on [place] Thyroid 3. Class I obesity with BMI of 32 ? Weight loss advised 4. DVT prophylaxis ? Lovenox Time spent in the patient's overall evaluation,decision-making process, review of diagnostic data, adjustment of management, discussion with other providers, nursing nursing and ancillary staff involved in patient's care documentation,40 Minutes Charges/Coding Visit Charges Inpatient E&M: 44918 Subs Hosp L2
[2023-07-25] MEDS: Enoxaparin 40 MG/0.4 ML Syringe SC (09:53)
[2023-07-25] MEDS: dilTIAZem CD 120 MG Capsule PO (10:42)
--- NOTE | 2023-07-25 11:15 | CASEMGMT ---
RN CM Face to Face with patient for initial transition planning/care coordination assessment. RN CM introduced self and role at [facility]. Patient lying in bed, alert and oriented. Patient willing to participate in assessment and is able to answer all questions appropriately. Care providers, pharmacy, and demographics verified. Patient wishes to discharge home, denies need for home health at this time. Patient states she has no further needs or concerns at this time. CM to follow for discharge planning needs that may arise. PCP: Adolfo Specialists: none Preferred Pharmacy: [facility] Insurance: [employer] Prescription Benefit: yes, [employer] $10 copay card provided to patient Living Will/HPOA: yes, son Dain Vasquez LNOK: , son Living Arrangements: Patient lives with in a split level home with 6 steps and railing between levels. Patient is independent and able to ambulate stairs at home. Transportation: self, DME/HHC: Patient denies DME in the home. No previous HHC or SNF Disposition Plan: Patient to discharge home with family support and follow-up plans in place. Grace HERNANDEZ, RN, CM
--- NOTE | 2023-07-25 11:22 | DS.PCM_ITS ---
Providers Date of Admission: 07/24/23 Date of Discharge: 07/25/23 Primary Care Physician: Dr. Travon Mata MD Reason For Visit: A-FIB WITH RVR Diagnosis Discharge Diagnosis (1) Atrial fibrillation with rapid ventricular response: Status: Acute Code(s): I48.91 - Unspecified atrial fibrillation Plan Patient is a 57-year-old lady admitted with A-fib with RVR 1. New onset A-fib with RVR -onset of symptoms more than 48 hours, patient outside the window for cardioversion. Admitted to a monitored bed started on Cardizem drip titrated to keep heart rate less than 100. As part of the management ordered 2D echo and Cardizem drip. Patient's [id number] Score for Atrial Fibrillation Stroke Risk was only 1 patient was therefore placed on only antiplatelet aspirin. ? 07/25/2023;Patient seen heart rate relatively well-controlled. Plan for patient to be discharged home with Cardizem and apixaban for subsequent follow- up with cardiology for possible cardioversion as outpatient 2. Hypothyroidism ? Patient is on [place] Thyroid 3. Class I obesity with BMI of 32 ? Weight loss advised 4. DVT prophylaxis ? Lovenox Time spent in the patient's overall evaluation,decision-making process, review of diagnostic data, adjustment of management, discussion with other providers, nursing nursing and ancillary staff involved in patient's care documentation,40 Minutes Medications at Discharge Home Medications thyroid (pork) 60 mg tablet ([place] Thyroid) 60 mg PO DAILY THYROID 07/24/23 apixaban 5 mg tablet (Eliquis) 5 mg PO BID 30 days #60 tabs 07/25/23 diltiazem HCl 120 mg capsule,extended release 24 hr 120 mg PO DAILY #6 caps 0 07/25/23 metoprolol succinate 25 mg tablet,extended release 24 hr 25 mg PO DAILY BLOOD PRESSURE #60 tabs 07/25/23 Hospital Course Procedures 2-D Echocardiogram Summary of Care Provided Minutes Spent on Discharge: 40 Physical Exam Narrative GENERAL: cooperative HEENT: Atraumatic; normocephalic EYES; Anicteric, Normal Conjunctiva NECK; supple, normal thyroid, RESPIRATORY: Diminished to auscultation CARDIOVASCULAR: irregular S1-S2 tachycardic GI: soft, normoactive bowel sounds, : No Renal angle tenderness; EXTREMITIES: No edema, no clubbing, MUSCULOSKELETAL: no muscle wasting NEURO: Awake; no lateralizing signs. SKIN: No Rash PSYCH; Flat affect Weight / BMI Weight Weight: 85.9 kg Body Mass Index (BMI) 31.5 ABG / Lab / Microbiology Data 07/25/23 06:40 07/25/23 06:40 Laboratory: Laboratory Results - last 24 hr 07/24/23 09:49: D-Dimer Quant (PE/DVT) 0.69 H*, B-Natriuretic Peptide 442.7 H 07/24/23 13:16: Troponin I High Sens 5 07/24/23 16:37: Troponin I High Sens 5 07/25/23 06:40: WBC 5.9, RBC 4.22, Hgb 12.3, Hct 37.3, MCV 88.4, MCH 29.1, MCHC 33.0, RDW Std Deviation 42.5, RDW Coeff of Rich 13.2, Plt Count 190, MPV 10.7, Immature Gran % (Auto) 0.200, Neut % (Auto) 61.4, Lymph % (Auto) 28.5, [place] % (Auto) 7.8, Eos % (Auto) 1.4, Baso % (Auto) 0.7, Absolute Neuts (auto) 3.6, Absolute Lymphs (auto) 1.69, Nucleated RBC % 0, Sodium 146 H, Potassium 3.8, Chloride 117 H, Carbon Dioxide 22.0, Anion Gap 7, BUN 13, Creatinine 0.82, Estim Creat Clear Calc 81.93, Est GFR (MDRD) Af Amer 92, Est GFR (MDRD) Non-Af 76, BUN/Creatinine Ratio 15.8, Glucose 91, Calcium 8.7, Phosphorus 3.3, Magnesium 2.1 Radiography Diagnostic Testing: Radiology Impression Venous Doppler Study 07/24/23 14:13 Interpretation Summary No evidence for acute deep venous thrombosis bilateral lower extremities with patent and compressible bilateral great saphenous veins. Ordering Physician: Quinn Arnold Referring Physician: Travon Mata Chi Performed By: Dwain Swann RVT Chest CTA 07/24/23 16:00 IMPRESSION: Negative CTA chest examination, without a demonstrated pulmonary embolism or arterial dissection. Multilobar basilar atelectasis, otherwise no acute cardiac pulmonary disease. Electronically Signed: Mera Hutton MD at 16:55 EST , D/C Instructions Discharge Diet: No restrictions Discharge Activity: Return to Normal Activity Call your doctor if you observe: Fever of 101 or Higher, Shortness of breath, Fainting spells and Chest pain Meaningful Use Info Meaningful Use Diagnoses (Choose all that apply): None applicable Discharge Plan Admission Admit Date/Time: 07/24/23 11:14 Attending Provider: Quinn Arnold Primary Care Provider: Travon Mata Chi Discharge Orders/Prescriptions Prescriptions: New diltiazem HCl 120 mg Capsule,Extended Release 24hr 120 mg PO DAILY Qty: 6 0RF Eliquis 5 mg Tablet 5 mg PO BID 30 Days Qty: 60 0RF Continued thyroid (pork) [[place] Thyroid] 60 mg tablet 60 mg PO DAILY metoprolol succinate 25 mg tablet extended release 24 hr 25 mg PO DAILY Qty: 60 0RF Referrals / Follow Up: Jacinto Diane MD [Med Staff - Active Staff] - Within 2 Weeks Travon Mata Chi, MD [Primary Care Provider] - Within 1 Week Disposition Disposition (needs filled in before D/C Order can be placed): Home, Self Care Charges/Coding Visit Charges Inpatient E&M: 80705 Disch Hosp >30min
[2023-07-25] MEDS: Metoprolol(XL)Succ 25 MG Tablet PO (12:34)
[2023-07-25] MEDS: APIXABAN 5 MG TABLET PO (12:34)
--- NOTE | 2023-07-25 16:48 | PHA.DC.MC.R ---
Pharmacy [facility] Pharmacy Service has performed discharge medication reconciliation and counseling for this patient. 1. APIXABAN 5MG PO BID 2. DILTIAZEM CD 120MG PO DAILY The patient's discharge medication list was reviewed for discrepancies and discrepancies were resolved. The patient was counseled on the following discharge medications and changes in medications for homegoing were reviewed. The Reason for Use, instructions for use, and potential side effects were reviewed for all new medications. The patient's questions regarding all of their medications were answered. The patient was able to verbally demonstrate an understanding of their discharge medications. Medications at Discharge Home Medications thyroid (pork) 60 mg tablet ([place] Thyroid) 60 mg PO DAILY THYROID 07/24/23 apixaban 5 mg tablet (Eliquis) 5 mg PO BID 30 days #60 tabs 07/25/23 diltiazem HCl 120 mg capsule,extended release 24 hr 120 mg PO DAILY #6 caps 07/25/23 metoprolol succinate 25 mg tablet,extended release 24 hr 25 mg PO DAILY BLOOD PRESSURE #60 tabs 07/25/23
== END 2023-07-25 16:50 | disposition home or self-care (01) | DRG 310 ==
LOC: ED 11:18 → PCU 11:48
PROVIDERS: Admitting Provider Internal Medicine; Emergency Provider Emergency Medicine; PCP Family Medicine Geriatric Medicine; Visit Provider Internal Medicine
DX: I48.91 Unspecified atrial fibrillation (principal); E03.9 Hypothyroidism, unspecified; E66.9 Obesity, unspecified; Z68.32 Body mass index [BMI] 32.0-32.9, adult; Z68.31 Body mass index [BMI] 31.0-31.9, adult; Z79.899 Other long term (current) drug therapy
CPT/HCPCS: 36415; 71045; 71275; 80048; 83735; 83880; 84100; 84443; 84484; 85025; 85379; 85610; 85730; 93005; 93306; 93970; 99284; J7030; Q9967; A4216

== ENCOUNTER → 2023-09-03 | Outpatient (CLI) | payer BC, SELFPAY ==
[2023-09-03 14:17] LABS: Absolute Lymphocyte Count 2.31 X10^3/uL (0.83-4.51); Absolute Neutrophil Count 3.7 X10^3/uL (2.0-7.7); Basophil# 0.05 X10^3/uL; Basophil% 0.8 % (0-1); Eosinophil# 0.06 X10^3/uL; Eosinophils% 0.9 % (0-5); Hematocrit 42.5 % (37-47); Lymphocyte # 2.31 X10^3/ul (0.83-4.51); Lymphocyte % 35.4 % (19-41); Mean Corp Hgb Conc 32.9 g/dL (32-36); Mean Corpuscular Hgb 28.7 pg (27.0-32.0); Mean Corpuscular Volume 87.3 fL (81-99); Mean Platelet Vol. 10.2 fl (6.2-12.0); Monocyte# 0.41 X10^3/uL; Monocyte% 6.3 % (0-10); NRBC Flagged by Analyzer 0 % (0-5); Neutrophil # 3.67 X10^3/uL (2.7-7.7); Neutrophil % 56.3 % (47-70); Platelet Count 188 K/mm3 (150-450); RBC Distribution Width CV 12.9 % (11.6-14.6); RBC Distribution Width SD 40.5 fl (35.1-43.9); Red Blood Count 4.87 M/mm3 (4.2-5.4); White Blood Count 6.5 K/mm3 (4.4-11.0)
[2023-09-03 15:26] LABS: ALB/GLOB Ratio 1.3 RATIO (0.9-2.4); AST(SGOT) 15 U/L (15-37); Alanine Aminotransfer ALT/SGPT 16 U/L (13-56); Albumin, Serum 4.1 g/dL (3.2-5.0); Alkaline Phosphatase 77 U/L (45-117); Anion Gap 7 (5-15); BUN 15 mg/dL (7-18); BUN/Creat Ratio 17.1 RATIO (10-20); Calcium,Total 9.1 mg/dL (8.5-10.1); Chloride 110 mmol/L (98-107); Creatinine, Serum 0.88 mg/dL (0.55-1.02); EST Glomerular Filtration Rate 71 mL/min (>60); Est Glom Filt Rate - Afr Amer 85 mL/min (>60); Globulin 3.2 g/dL (2.2-4.2); Glucose 80 mg/dL (74-106); Potassium 3.7 mmol/L (3.5-5.1); Protein, Total 7.3 g/dL (6.4-8.2); Sodium Level 143 mmol/L (136-145); Thyroid Stim Hormone (TSH) 0.43 uIU/mL (0.358-3.74)
== END | disposition home or self-care (01) ==
LOC: POLAB3 14:02
PROVIDERS: PCP Family Medicine Geriatric Medicine; Visit Provider Family Medicine Geriatric Medicine
DX: R53.83 Other fatigue (principal)
CPT/HCPCS: 36415; 80053; 84443; 85025

== ENCOUNTER → 2023-10-07 | Outpatient (CLI) | payer BC, SELFPAY ==
--- NOTE | 2023-10-07 08:03 | BI_ITS ---
MAMMOGRAPHY - BILATERAL SCREENING REASON FOR EXAM: Female, 58 years old. Routine annual screening examination. PERTINENT HISTORY: Non-contributory. TECHNIQUE: Digital bilateral breast minh (3D mammographic acquisition) in the CC and MLO projections. 2-D mediolateral oblique (MLO) and craniocaudad (CC) views of both breasts were obtained. CAD: Full Field Digital Mammography with Computer Added Detection was performed. COMPARISON: Comparison is made with prior study October 12, 2021 and October 10, 2020. FINDINGS: Breast Composition: The breasts are almost entirely fatty. There are no dominant masses or suspicious calcifications. Stable 5.6 mm well-defined nodule in the axillary region of the right breast suggestive of a small benign-appearing lymph node. No other significant abnormalities are identified. There has been no significant change since the prior study. BI/SCRN MAMM (CAD)W/MINH BILAT IMPRESSION: Stable bilateral screening mammogram. Yearly follow-up mammogram recommended. (A) ASSESSMENT CATEGORY: BIRADS Category 2: Benign. A letter regarding these results will be sent to the patient by the facility within 30 days. Approximately 10% of breast cancers are not detected by mammography. A normal mammogram should not delay biopsy of a clinically suspicious abnormality. [id number] Electronically Signed: Yony Stone MD at 9:57 EDT ,
== END | disposition home or self-care (01) ==
LOC: OPBI 08:02
PROVIDERS: PCP Family Medicine Geriatric Medicine; Referring Provider Family Medicine Geriatric Medicine; Visit Provider Family Medicine Geriatric Medicine
DX: Z12.31 Encounter for screening mammogram for malignant neoplasm of breast (principal)
CPT/HCPCS: 77063; 77067

== ENCOUNTER → 2024-02-25 | Outpatient (CLI) | payer BC, SELFPAY ==
[2024-02-25 13:49] LABS: Absolute Lymphocyte Count 2.42 X10^3/uL (0.83-4.51); Absolute Neutrophil Count 2.5 X10^3/uL (2.0-7.7); Basophil# 0.05 X10^3/uL; Basophil% 0.9 % (0-1); Eosinophil# 0.08 X10^3/uL; Eosinophils% 1.4 % (0-5); Hemoglobin 14.4 g/dL (12.0-15.0); Lymphocyte # 2.42 X10^3/ul (0.83-4.51); Lymphocyte % 43.8 % (19-41); Mean Corp Hgb Conc 32.7 g/dL (32-36); Mean Corpuscular Hgb 28.9 pg (27.0-32.0); Mean Corpuscular Volume 88.4 fL (81-99); Monocyte# 0.44 X10^3/uL; NRBC Flagged by Analyzer 0 % (0-5); Neutrophil # 2.53 X10^3/uL (2.7-7.7); Neutrophil % 45.7 % (47-70); Platelet Count 199 K/mm3 (150-450); RBC Distribution Width CV 12.8 % (11.6-14.6); RBC Distribution Width SD 41.4 fl (35.1-43.9); Red Blood Count 4.98 M/mm3 (4.2-5.4); White Blood Count 5.5 K/mm3 (4.4-11.0)
[2024-02-25 14:36] LABS: ALB/GLOB Ratio 1.2 RATIO (0.9-2.4); AST(SGOT) 19 U/L (15-37); Alanine Aminotransfer ALT/SGPT 22 U/L (13-56); Albumin, Serum 4.1 g/dL (3.2-5.0); Alkaline Phosphatase 76 U/L (45-117); Anion Gap 6 (5-15); BUN 20 mg/dL (7-18); BUN/Creat Ratio 25.4 RATIO (10-20); Calcium,Total 9.1 mg/dL (8.5-10.1); Chloride 109 mmol/L (98-107); Creatinine, Serum 0.79 mg/dL (0.55-1.02); EST Glomerular Filtration Rate 80 mL/min (>60); Est Glom Filt Rate - Afr Amer 96 mL/min (>60); Globulin 3.5 g/dL (2.2-4.2); Glucose 83 mg/dL (74-106); Potassium 4.2 mmol/L (3.5-5.1); Protein, Total 7.6 g/dL (6.4-8.2); Sodium Level 142 mmol/L (136-145); Thyroid Stim Hormone (TSH) 0.408 uIU/mL (0.358-3.740)
== END | disposition home or self-care (01) ==
LOC: POLAB3 13:33
PROVIDERS: PCP Family Medicine Geriatric Medicine; Visit Provider Family Medicine Geriatric Medicine
DX: R53.83 Other fatigue (principal)
CPT/HCPCS: 36415; 80053; 84443; 85025

== ENCOUNTER 2024-05-08 06:26 | Inpatient (IN) | payer OTHER, SELFPAY ==
[2024-05-08] VITALS (38 sets, daily range): BP systolic 81–123; BP diastolic 38–92; PULSE 72–174; RESP 16–20; TEMP 36.7–36.8; O2SAT 95–99; BMI 30.7; BMI 25.2
--- NOTE | 2024-05-08 06:39 | ED.VIS.CHEST ---
HPI <Dr. Desmond Gamez DO - Last Filed: 05/08/24 06:52> History of Present Illness Chief Complaint: Palpitations Informant: patient Onset/Context/Timing Onset: Yesterday Activity at onset: sudden Timing: Continuous Quality: Positive for - Worsened By: Nothing Relieved By: Nothing Associated Symptoms: Positive for Palpitations; Negative for Nausea, Vomiting, Diaphoresis, Dyspnea, Cough, Fever, Lightheadedness or Acid Reflux Narrative CVD Risk Factors: Positive for Hypercholesterolemia; Negative for Hypertension, Diabetes, Family History 1' </=55 or Smoking PE Risk Factors: Negative for Recent Travel/Surgery, Recent Immobilization, Prior DVT or PE, Cancer or OCP + Smoking + >/=35 PFSH <Dr. Desmond Gamez DO - Last Filed: 05/08/24 06:52> PFSH Medical History Hyperlipidemia Fatigue Familial hypercholesterolemia due to heterozygous low density lipoprotein (LDL) receptor mutation Osteoarthritis Tachycardia Vitamin D deficiency Atrophic vaginitis Morbid obesity Hypothyroid Atrial fibrillation Syncope Home Medications ?Medication ?Instructions ?Recorded ?Last Taken ?Type thyroid (pork) 60 mg tablet 60 mg PO DAILY THYROID 07/24/23 Unknown History ([place] Thyroid) metoprolol succinate 25 mg 25 mg PO DAILY BLOOD PRESSURE #60 07/25/23 Unknown Rx tablet,extended release 24 hr tabs cholecalciferol (vitamin D3) 25 25 mcg PO DAILY 08/14/23 Unknown History mcg (1,000 unit) capsule tirzepatide 10 mg/0.5 mL 40 mg subcut QWEEK 09/11/23 05/04/24 History subcutaneous pen injector (Mounjaro) Allergy/AdvReac Type Severity Reaction Status Date / Time No Known Allergies Allergy Verified 05/08/24 06:27 Family History Brother Heart failure Mother Hepatitis a without hepatic coma Brother Afib Sister Afib Father Cancer Surgical History Hx of abdominoplasty Hx of thyroidectomy Social History Smoking Status: Never smoker ROS <Dr. Desmond Gamez DO - Last Filed: 05/08/24 06:52> ROS ED Constitutional Constitutional ED: Denies chills or fever(s) Eyes Eyes: Denies blurry vision or change in vision ENT ENT ED: Denies rhinorrhea or sore throat Cardiovascular Cardiovascular: Reports palpitations; Denies chest pain Respiratory/Chest Respiratory/Chest: Denies cough or dyspnea Gastrointestinal Gastrointestinal: Denies nausea or vomiting Genitourinary Genitourinary ED: Denies dysuria or hematuria Musculoskeletal Musculoskeletal: Denies back pain or neck pain Integumentary Denies abscess or rash Neurologic Neurologic: Denies headache(s) or weakness Allergic/Immunologic Allergic/Immunologic ED: Denies mouth swelling or urticaria EXAM <Dr. Desmond Gamez DO - Last Filed: 05/08/24 06:52> Physical Exam Const Vital Signs: 05/08/24 06:28 05/08/24 06:33 05/08/24 06:54 Temperature 98.1 F Temperature Source Oral Pulse Rate 174 H Respiratory Rate 20 H Respiratory Effort Normal Non-Labored Respiratory Pattern Normal Blood Pressure 123/81 H Blood Pressure Mean 95 Pulse Ox 95 98 Oxygen Delivery Method Room Air Room Air Positive well nourished and well developed General Appearance ED: well developed and NAD HEENT Reports moist mucous membranes Neck supple and no JVD Resp normal respiratory effort and clear to auscultation bilaterally Cardio Rate: tachycardic Rhythm: abnormal rhythm irregularly irregular GI soft to palpation, non-tender and non-distended Extremity normal to inspection General Extremety ED: Negative for edema or tenderness General Extremity: Negative for edema Neuro oriented x3, CN's II-XII intact bilaterally and no sensory deficits noted Sensorium / Orientation: awake and alert Motor Exam: strength 5/5 throughout Psych mental status grossly normal <Dr. Victorino Keating MD - Last Filed: 05/08/24 07:31> Physical Exam Const Vital Signs: 05/08/24 06:28 05/08/24 06:33 05/08/24 06:54 Temperature 98.1 F Temperature Source Oral Pulse Rate 174 H Respiratory Rate 20 H Respiratory Effort Normal Non-Labored Respiratory Pattern Normal Blood Pressure 123/81 H Blood Pressure Mean 95 Pulse Ox 95 98 Oxygen Delivery Method Room Air Room Air MDM <Dr. Desmond Gamez DO - Last Filed: 05/08/24 06:52> MDM MDM Narrative Medical decision making narrative: Differential diagnosis includes cardiac dysrhythmia, cardiac ischemia, electrolyte abnormality, pneumonia, and pneumothorax. EKG will be obtained to assess for cardiac dysrhythmia and cardiac ischemia. Chest x-ray will be obtained to assess for pneumonia and pneumothorax. CBC will be obtained to assess for leukocytosis and anemia. Basic metabolic profile will be obtained to assess for electrolyte abnormality and renal function. High-sensitivity troponin will be obtained to assess for cardiac ischemia. Lab Data Labs: Laboratory Results - last 24 hr 05/08/24 06:36 WBC 5.0 RBC 4.95 Hgb 14.8 Hct 43.6 MCV 88.1 MCH 29.9 MCHC 33.9 RDW Std Deviation 40.9 RDW Coeff of Rich 12.6 Plt Count 191 MPV 10.2 Immature Gran % (Auto) 0.400 Neut % (Auto) 44.8 L Lymph % (Auto) 46.2 H [place] % (Auto) 6.8 Eos % (Auto) 1.2 Baso % (Auto) 0.6 Absolute Neuts (auto) 2.3 Absolute Lymphs (auto) 2.32 Nucleated RBC % 0 Sodium 144 Potassium 3.8 Chloride 115 H Carbon Dioxide 24.0 Anion Gap 5 BUN 12 Creatinine 0.79 Estim Creat Clear Calc 82.93 Est GFR (MDRD) Af Amer 96 Est GFR (MDRD) Non-Af 79 BUN/Creatinine Ratio 15.1 Glucose 121 H Calcium 8.8 Troponin I High Sens 11 EKG Initial EKG: Attestation: I personally reviewed and interpreted this EKG as follows: Interpretation: Atrial Fibrillation (158) and Non-Specific ST Changes Comments: EKG was obtained. On my independent interpretation, shows atrial fibrillation with a rate of 158. QRS interval was normal at 70 ms. QTc interval was normal at 447 ms. [place] was normal at -2. Prior EKG tracings: available for review Prior: Changed (Compared to EKG dated 09/11/2023, atrial fibrillation is new. EKG from 07/24/2023 showed atrial fibrillation with rapid ventricular response.) Treatment and Re-Evaluation :: Patient was given aspirin. Patient was given a dose of Cardizem. <Dr. Victorino Keating MD - Last Filed: 05/08/24 07:31> [facility] Narrative Medical decision making narrative: Differential diagnosis includes cardiac dysrhythmia, cardiac ischemia, electrolyte abnormality, pneumonia, and pneumothorax. EKG will be obtained to assess for cardiac dysrhythmia and cardiac ischemia. Chest x-ray will be obtained to assess for pneumonia and pneumothorax. CBC will be obtained to assess for leukocytosis and anemia. Basic metabolic profile will be obtained to assess for electrolyte abnormality and renal function. High-sensitivity troponin will be obtained to assess for cardiac ischemia. Patient turned over to me from the overnight physician. Diagnosis is recurrent A-fib with rapid ventricular rate. She 1 prior episode of A-fib. Her direct service professional took her off her blood thinners and off her Cardizem because she was doing so well. Yesterday about 10 PM she went back in A-fib. She received initial bolus of Cardizem here. Initially brought her rate down to the 90s. But she is slowly increased her rate and is back up to around 134. She will be started on a Cardizem drip. Of the hospitalist on page for admission. History & Record Review Discussion w/independent historian: Patient Additional record(s) reviewed:: Prior inpatient record, Prior outpatient record, Prior ED visit and Prior labs Lab Data Attestation: I reviewed the patient's lab results. Lab results narrative: CBC normal. Chemistries unremarkable. Gap 5. Normal BUN and creatinine. Glucose 121. Troponin is normal at 11. Labs: Laboratory Results - last 24 hr 05/08/24 06:36 WBC 5.0 RBC 4.95 Hgb 14.8 Hct 43.6 MCV 88.1 MCH 29.9 MCHC 33.9 RDW Std Deviation 40.9 RDW Coeff of Rich 12.6 Plt Count 191 MPV 10.2 Immature Gran % (Auto) 0.400 Neut % (Auto) 44.8 L Lymph % (Auto) 46.2 H [place] % (Auto) 6.8 Eos % (Auto) 1.2 Baso % (Auto) 0.6 Absolute Neuts (auto) 2.3 Absolute Lymphs (auto) 2.32 Nucleated RBC % 0 Sodium 144 Potassium 3.8 Chloride 115 H Carbon Dioxide 24.0 Anion Gap 5 BUN 12 Creatinine 0.79 Estim Creat Clear Calc 82.93 Est GFR (MDRD) Af Amer 96 Est GFR (MDRD) Non-Af 79 BUN/Creatinine Ratio 15.1 Glucose 121 H Calcium 8.8 Troponin I High Sens 11 Radiography Chest X-Ray - ED: 1 View, Read by ED Physician, Heart, Mediastinum, Bony Structures, No Acute Disease and Chronic Changes Diagnostic Testing: Chest x-ray, portable, single view interpreted by myself shows no acute abnormality. Normal cardiac silhouette. No effusions. No congestive heart failure. No pneumonia. Rhythm Strip Rhythm Strip: A-fib Rate: 158 Ectopy: None Discharge Plan Dx/Rx/DC Orders Clinical Impression: Atrial fibrillation with rapid ventricular response Disposition Disposition: Acute Care Hospital [facility]
--- NOTE | 2024-05-08 06:52 | RAD_ITS ---
INDICATION: chest pain EXAMINATION/TECHNIQUE: X-RAY - XR Chest 1 View AP portable. 6:53 AM COMPARISON: Prior study dated: 07/24/2023 FINDINGS: LINES/DEVICES: None. LUNGS: No consolidation. No pneumothorax. MEDIASTINUM: Unremarkable. CARDIAC SILHOUETTE: Not enlarged. BONES AND SOFT TISSUES: No acute abnormalities. RAD/Chest 1 View (Portable) IMPRESSION: No evidence of active intrathoracic disease. Electronically Signed: Princess Wilson MD at 7:39 EDT ,
--- NOTE | 2024-05-08 06:52 | EKG12_ITS ---
Test Reason : PALPITATIONS Blood Pressure : / mmHG Vent. Rate : 158 BPM Atrial Rate : 000 BPM P-R Int : 000 ms QRS Dur : 070 ms QT Int : 276 ms P-R-T Axes : 000 -02 182 degrees QTc Int : 447 ms Atrial fibrillation with rapid ventricular response Nonspecific ST and T wave abnormality Abnormal ECG Confirmed by ZOEY PEÑALOZA, CORINE ([id number]), videotape editor LELA FAJARDO ([id number]) on 05/11/2024 9:20:45 AM Referred By: Confirmed By:CORINE GREER MD
[2024-05-08] MEDS: Aspirin 81 MG TAB.CHEW 324 MG PO (06:57)
[2024-05-08] MEDS: dilTIAZem 25 MG/5 ML Vial IV BOLUS (06:57)
[2024-05-08 07:01] LABS: Absolute Lymphocyte Count 2.32 X10^3/uL (0.83-4.51); Absolute Neutrophil Count 2.3 X10^3/uL (2.0-7.7); Basophil# 0.03 X10^3/uL; Basophil% 0.6 % (0-1); Eosinophil# 0.06 X10^3/uL; Eosinophils% 1.2 % (0-5); Hematocrit 43.6 % (37-47); Hemoglobin 14.8 g/dL (12.0-15.0); Lymphocyte # 2.32 X10^3/ul (0.83-4.51); Lymphocyte % 46.2 % (19-41); Mean Corp Hgb Conc 33.9 g/dL (32-36); Mean Corpuscular Hgb 29.9 pg (27.0-32.0); Mean Corpuscular Volume 88.1 fL (81-99); Mean Platelet Vol. 10.2 fl (6.2-12.0); Monocyte# 0.34 X10^3/uL; Monocyte% 6.8 % (0-10); NRBC Flagged by Analyzer 0 % (0-5); Neutrophil # 2.25 X10^3/uL (2.7-7.7); Neutrophil % 44.8 % (47-70); Platelet Count 191 K/mm3 (150-450); RBC Distribution Width CV 12.6 % (11.6-14.6); RBC Distribution Width SD 40.9 fl (35.1-43.9); Red Blood Count 4.95 M/mm3 (4.2-5.4)
[2024-05-08 07:22] LABS: Anion Gap 5 (5-15); BUN 12 mg/dL (7-18); BUN/Creat Ratio 15.1 RATIO (10-20); Calcium,Total 8.8 mg/dL (8.5-10.1); Chloride 115 mmol/L (98-107); Creatinine, Serum 0.79 mg/dL (0.55-1.02); EST Glomerular Filtration Rate 79 mL/min (>60); Est Glom Filt Rate - Afr Amer 96 mL/min (>60); Estimated Creatinine Clearance 82.93 ml/min; Glucose 121 mg/dL (74-106); Potassium 3.8 mmol/L (3.5-5.1); Sodium Level 144 mmol/L (136-145); Troponin-I HS 11 pg/mL (3.0-54.0)
[2024-05-08] MEDS: Diltiazem 125 MG in Dextrose 5%-Water (100mL Bag) 100 ML IV ×2 (08:11→17:35)
[2024-05-08 09:44] LABS: Troponin-I HS 18 pg/mL (3.0-54.0)
[2024-05-08] MEDS: APIXABAN 5 MG TABLET PO (10:04)
[2024-05-08 13:03] LABS: Troponin-I HS 18 pg/mL (3.0-54.0)
--- NOTE | 2024-05-08 15:21 | HP.PCM.HOS_ITS ---
[facility] - General General Date of Admission: 05/08/24 Date of Service: 05/08/24 Chief Complaint: palpitations. HPI Narrative FIONA LEES, is a 58 F who presents with palpitations. Symptoms began around 2200 on the . Patient has had a history of paroxysmal atrial fibrillation before and had been on medications but was subsequently discontinued. Patient started experiencing palpitations and persisted and presented to the emergency room and was found to be in atrial fibrillation with RVR. She received a bolus of IV diltiazem as well as was started on drip. Heart rate has subsequently improved but still remains in atrial fibrillation. [facility] Medical History Hyperlipidemia Fatigue Familial hypercholesterolemia due to heterozygous low density lipoprotein (LDL) receptor mutation Osteoarthritis Tachycardia Vitamin D deficiency Atrophic vaginitis Morbid obesity Hypothyroid Atrial fibrillation Syncope Home Medications ?Medication ?Instructions ?Recorded ?Last Taken ?Type thyroid (pork) 60 mg tablet 60 mg PO DAILY THYROID 07/24/23 Unknown History ([place] Thyroid) metoprolol succinate 25 mg 25 mg PO DAILY BLOOD PRESSURE #60 07/25/23 Unknown Rx tablet,extended release 24 hr tabs cholecalciferol (vitamin D3) 25 25 mcg PO DAILY supplement 08/14/23 Unknown History mcg (1,000 unit) capsule tirzepatide 10 mg/0.5 mL 40 mg subcut QWEEK 09/11/23 05/04/24 History subcutaneous pen injector (Mounjaro) Allergy/AdvReac Type Severity Reaction Status Date / Time No Known Allergies Allergy Verified 05/08/24 06:27 Family History Brother Heart failure Mother Hepatitis a without hepatic coma Brother Afib Sister Afib Father Cancer Surgical History Hx of abdominoplasty Hx of thyroidectomy Social History Smoking Status: Never smoker ROS ROS Narrative All review of systems were negative except as mentioned above in the history of present illness and the other review of systems. Vital Signs Vital Signs Vital Signs: 05/08/24 06:28 05/08/24 06:33 05/08/24 06:54 Temperature 36.7 C Temperature Source Oral Pulse Rate 174 H Pulse Strength Respiratory Rate 20 H Respiratory Effort Normal Non-Labored Respiratory Depth Respiratory Pattern Normal Blood Pressure 123/81 H Blood Pressure Mean 95 Blood Pressure Source Blood Pressure Position Blood Pressure Location Pulse Ox 95 98 Oxygen Delivery Method Room Air Room Air 05/08/24 08:11 05/08/24 08:27 05/08/24 08:31 Temperature 36.8 C 36.7 C Temperature Source Oral Pulse Rate 145 H 133 H 133 H Pulse Strength Respiratory Rate 19 H 16 17 Respiratory Effort Respiratory Depth Respiratory Pattern Blood Pressure 107/81 H 107/81 H 107/81 H Blood Pressure Mean 89 89 89 Blood Pressure Source Blood Pressure Position Sitting Blood Pressure Location Left Arm Pulse Ox 97 96 96 Oxygen Delivery Method Room Air 05/08/24 08:46 05/08/24 08:56 05/08/24 09:11 Temperature 36.8 C Temperature Source Oral Pulse Rate 133 H 138 H Pulse Strength Respiratory Rate 18 17 Respiratory Effort Respiratory Depth Respiratory Pattern Blood Pressure 106/92 H 106/81 H Blood Pressure Mean 96 89 Blood Pressure Source Monitor Monitor Blood Pressure Position Semi-Fowlers Semi-Fowlers Blood Pressure Location Left Arm Left Arm Pulse Ox 96 97 Oxygen Delivery Method Room Air Room Air Room Air 05/08/24 09:15 05/08/24 09:18 05/08/24 09:30 Temperature Temperature Source Pulse Rate 138 H 107 H Pulse Strength Normal (2+) Respiratory Rate 18 17 Respiratory Effort Respiratory Depth Respiratory Pattern Blood Pressure 108/89 H 82/69 L Blood Pressure Mean 95 73 Blood Pressure Source Monitor Monitor Blood Pressure Position Semi-Fowlers Semi-Fowlers Blood Pressure Location Left Arm Left Arm Pulse Ox 97 96 Oxygen Delivery Method Room Air Room Air 05/08/24 09:45 05/08/24 10:00 05/08/24 10:00 Temperature Temperature Source Pulse Rate 115 H 113 H Pulse Strength Respiratory Rate 16 Respiratory Effort Normal Non-Labored Respiratory Depth Normal Respiratory Pattern Normal Blood Pressure 94/72 93/61 Blood Pressure Mean 79 71 Blood Pressure Source Monitor Monitor Blood Pressure Position Semi-Fowlers Semi-Fowlers Blood Pressure Location Left Arm Left Arm Pulse Ox 96 98 Oxygen Delivery Method Room Air Room Air Room Air 05/08/24 10:06 05/08/24 10:15 10/25/24 10:30 Temperature Temperature Source Pulse Rate 109 H 99 109 H Pulse Strength Respiratory Rate 16 Respiratory Effort Respiratory Depth Respiratory Pattern Blood Pressure 93/82 H 83/63 L 99/58 L Blood Pressure Mean 85 69 71 Blood Pressure Source Monitor Monitor Monitor Blood Pressure Position Semi-Fowlers Semi-Fowlers Semi-Fowlers Blood Pressure Location Left Arm Left Arm Left Arm Pulse Ox 98 98 98 Oxygen Delivery Method Room Air Room Air Room Air 05/08/24 10:45 05/08/24 11:00 05/08/24 11:30 Temperature Temperature Source Pulse Rate 98 104 H 94 Pulse Strength Respiratory Rate 16 Respiratory Effort Respiratory Depth Respiratory Pattern Blood Pressure 98/60 109/90 H 98/64 Blood Pressure Mean 72 96 75 Blood Pressure Source Monitor Monitor Monitor Blood Pressure Position Semi-Fowlers Semi-Fowlers Semi-Fowlers Blood Pressure Location Left Arm Left Arm Left Arm Pulse Ox 97 99 97 Oxygen Delivery Method Room Air Room Air Room Air 05/08/24 12:04 05/08/24 12:43 05/08/24 12:43 Temperature Temperature Source Pulse Rate 80 83 83 Pulse Strength Respiratory Rate Respiratory Effort Respiratory Depth Respiratory Pattern Blood Pressure 88/63 L 95/70 95/70 Blood Pressure Mean 71 78 78 Blood Pressure Source Monitor Monitor Blood Pressure Position Semi-Fowlers Semi-Fowlers Blood Pressure Location Left Arm Left Arm Pulse Ox 96 98 98 Oxygen Delivery Method Room Air Room Air Room Air 05/08/24 13:27 Temperature Temperature Source Pulse Rate 80 Pulse Strength Respiratory Rate Respiratory Effort Respiratory Depth Respiratory Pattern Blood Pressure 95/72 Blood Pressure Mean 79 Blood Pressure Source Monitor Blood Pressure Position Semi-Fowlers Blood Pressure Location Left Arm Pulse Ox 96 Oxygen Delivery Method Room Air Weight Weight: 68.8 kg Body Mass Index (BMI) 25.2 Physical Exam Const alert and no apparent distress Constitutional Narrative: Up in chair. No acute distress. HEENT normocephalic, head/scalp atraumatic, hearing grossly normal bilaterally and moist oral mucous membranes Eyes Eyes Narrative: no icterus. Neck no lymphadenopathy, supple, no JVD and no carotid bruits Resp normal respiratory effort, no retractions, no use of accessory muscles and clear to auscultation bilaterally Cardio regular rate, regular rhythm, S1 normal heart sound and S2 normal heart sound Cardio Narrative: Irregularly irregular. GI normal to inspection, nondistended, normoactive bowel sounds, soft to palpation, non-tender and non-distended Extremity normal to inspection, full ROM and no clubbing, cyanosis or edema Neuro moves all extremities Sensorium / Orientation: awake and alert Psych affect normal Results Lab / Micro Data 05/08/24 06:36 05/08/24 06:36 Labs: Laboratory Results - last 24 hr 05/08/24 06:36: WBC 5.0, RBC 4.95, Hgb 14.8, Hct 43.6, MCV 88.1, MCH 29.9, MCHC 33.9, RDW Std Deviation 40.9, RDW Coeff of Rich 12.6, Plt Count 191, MPV 10.2, Immature Gran % (Auto) 0.400, Neut % (Auto) 44.8 L, Lymph % (Auto) 46.2 H, [place] % (Auto) 6.8, Eos % (Auto) 1.2, Baso % (Auto) 0.6, Absolute Neuts (auto) 2.3, Absolute Lymphs (auto) 2.32, Nucleated RBC % 0, Sodium 144, Potassium 3.8, C hloride 115 H, Carbon Dioxide 24.0, Anion Gap 5, BUN 12, Creatinine 0.79, Estim Creat Clear Calc 82.93, Est GFR (MDRD) Af Amer 96, Est GFR (MDRD) Non-Af 79, BUN/Creatinine Ratio 15.1, Glucose 121 H, Calcium 8.8, Troponin I High Sens 11 05/08/24 09:06: Troponin I High Sens 18 05/08/24 12:08: Troponin I High Sens 18 Rhythm Strip Rhythm Strip: A-fib Rate: 158 Ectopy: None Imaging Radiology Impression Chest X-Ray 05/08/24 06:52 IMPRESSION: No evidence of active intrathoracic disease. Electronically Signed: Princess Wilson MD at 7:39 EDT , Assessment & Plan Assessment/Plan (1) Atrial fibrillation with rapid ventricular response: PLAN: Patient thinks it may be related with her Mounjaro compounding as she gets. I told him not sure that that culprit but seems like she has underlying predisposition to atrial fibrillation. Patient takes metoprolol succinate 25 daily at home. Will increase that to metoprolol tartrate 25 twice daily. Continue with the diltiazem drip and wean as tolerated. Her [id number] is 2 so we will resume apixaban. PLAN: Plan Hypothyroidism: Continue with her thyroid replacement VTE prophylaxis: Not indicated as patient is anticoagulated. Charges/Coding Visit Charges Inpatient E&M: 88680 Init Hosp L3
[2024-05-08] MEDS: Metoprolol Tartrate 25 MG Tablet PO (21:35)
[2024-05-09] VITALS (26 sets, daily range): BP systolic 72–107; BP diastolic 46–79; PULSE 90–153; RESP 16–22; TEMP 36.2–36.8; O2SAT 93–100
--- NOTE | 2024-05-09 07:29 | PCM.PN.HOSP ---
Reason for Visit Reason for Visit: Diagnoses Unspecified atrial fibrillation (05/08/24) Subjective Subjective Feels well. Still with afib, when dilt would be weaned off, HR would jump to 120-130s. Objective Data Objective Data Vital Signs: Vital Signs Temp Pulse Resp BP Pulse Ox O2 Del Method 36.2 C L 110 H 16 93/79 98 Room Air 05/09/24 04:00 05/09/24 07:00 05/09/24 04:00 05/09/24 07:00 05/09/24 07:00 05/09/24 07:00 Oxygen Delivery Method Room Air Weight: 68.8 kg Body Mass Index (BMI) 25.2 Intake & Output: Intake and Output for Last 24 Hours 05/07/24 05/08/24 05/09/24 23:59 23:59 23:59 Intake Total 149.51 / 394.51 280 / 280 Output Total 0 / 0 Balance 149.51 / 394.51 280 / 280 Lab / Micro Data 05/08/24 06:36 05/08/24 06:36 Labs: Laboratory Results - last 24 hr 05/08/24 09:06: Troponin I High Sens 18 05/08/24 12:08: Troponin I High Sens 18 Radiography Diagnostic Testing: Radiology Impression Chest X-Ray 05/08/24 06:52 IMPRESSION: No evidence of active intrathoracic disease. Electronically Signed: Princess Wilson MD at 7:39 EDT Reading Location ID and State: [address] [place] [address] Tel , Service support , Rhythm Strip Rhythm Strip: A-fib Rate: 158 Ectopy: None Physical Exam Const alert and no apparent distress Constitutional Narrative: up in chair. Resp normal respiratory effort, no retractions, no use of accessory muscles and clear to auscultation bilaterally Cardio Cardio Narrative: irregularly irregular. Assessment & Plan Assessment/Plan (1) Atrial fibrillation with rapid ventricular response: PLAN: Patient thinks it may be related with her Mounjaro compounding as she gets. I told him not sure that that culprit but seems like she has underlying predisposition to atrial fibrillation. Patient takes metoprolol succinate 25 daily at home. Will increase that to metoprolol tartrate 25 twice daily. Continue with the diltiazem drip and wean as tolerated. Her [id number] is 2 so we will resume apixaban. PLAN: Plan Hypothyroidism: Continue with her thyroid replacement VTE prophylaxis: Not indicated as patient is anticoagulated. Charges/Coding Visit Charges Inpatient E&M: 80255 Subs Hosp L2
[2024-05-09] MEDS: Thyroid 60 MG Tablet PO (09:16)
[2024-05-09] MEDS: Cholecalciferol (VIT D3) 25 MCG TABLET (1,000 UNITS) PO (09:16)
[2024-05-09] MEDS: Metoprolol Tartrate 25 MG Tablet PO (09:16)
--- NOTE | 2024-05-09 12:39 | PCM.CONS.C ---
Assessment & Plan Assessment/Plan (1) Hypothyroid: (2) Morbid obesity: (3) Atrial fibrillation with rapid ventricular response: PLAN: Plan Cardiac care plan recommendation 58-year-old patient presented to the ER he had [facility] complaining of palpitation Does not have any active chest pain no symptoms of shortness of breath. Patient had history of paroxysmal atrial fibrillation In July 2023 she had episode of A-fib Treated with Cardizem and metoprolol in addition to Eliquis Based on Chads-Vasc score of 2 she was started on anticoagulation in addition to rate control With metoprolol and Cardizem She been seen and followed in the office by her primary distribution center manager When she been evaluated by echocardiogram showed LV function is preserved with mild eccentric mitral regurgitation. On this admission she had A-fib with RVR does not respond very well to calcium channel erica and beta-erica. Therefore we will start on heparin as well as on amiodarone. With the plan if she converted to sinus to resume her anticoagulation with Eliquis Will also consider reevaluating by echocardiogram and if LV function is preserved option of antiarrhythmic medication with flecainide This can be discussed further with the patient. Other options if she continues to have episodes of paroxysmal A-fib is to refer her for early A-fib ablation. Margret Morales MD,[facility] [place] HPI Consult Data Date of Consult: 05/09/24 HPI Narrative Reason for Consultation: Paroxysmal A-fib HPI Narrative: FIONA LEES, is a 58 F who presents [facility] Medical History Hyperlipidemia Fatigue Familial hypercholesterolemia due to heterozygous low density lipoprotein (LDL) receptor mutation Osteoarthritis Tachycardia Vitamin D deficiency Atrophic vaginitis Morbid obesity Hypothyroid Atrial fibrillation Syncope Home Medications ?Medication ?Instructions ?Recorded ?Last Taken ?Type thyroid (pork) 60 mg tablet 60 mg PO DAILY THYROID 07/24/23 Unknown History ([place] Thyroid) metoprolol succinate 25 mg 25 mg PO DAILY BLOOD PRESSURE #60 07/25/23 Unknown Rx tablet,extended release 24 hr tabs cholecalciferol (vitamin D3) 25 25 mcg PO DAILY supplement 08/14/23 Unknown History mcg (1,000 unit) capsule tirzepatide 10 mg/0.5 mL 40 mg subcut QWEEK 09/11/23 05/04/24 History subcutaneous pen injector (Mounjaro) Allergy/AdvReac Type Severity Reaction Status Date / Time No Known Allergies Allergy Verified 05/08/24 06:27 Family History Brother Heart failure Mother Hepatitis a without hepatic coma Brother Afib Sister Afib Father Cancer Surgical History Hx of abdominoplasty Hx of thyroidectomy Social History Smoking Status: Never smoker Physical Exam Cardio Cardio Narrative: Patient seen and evaluated at bedside along with the nursing staff at bedside at time of evaluation Sitting in chair comfortable Review of the environmental monitoring specialist showed underlying A-fib with RVR Cardiac exam S1-S2 is irregular No systolic or diastolic murmur Chest exam clear to auscultation bilateral Examination lower extremity no lower extremity edema Pedal pulses palpable. Risk Stratification Risk Stratification Applicable: No Objective Data Vital Signs: Vital Signs Temp Pulse Resp BP Pulse Ox O2 Del Method 97.1 F L 98 18 92/52 L 98 Room Air 05/09/24 04:00 05/09/24 10:30 05/09/24 10:00 05/09/24 10:00 05/09/24 10:00 05/09/24 10:00 Oxygen Delivery Method Room Air Weight: 151 lb 10.848 oz Body Mass Index (BMI) 25.2 Intake & Output: Intake and Output for Last 24 Hours 05/07/24 05/08/24 05/09/24 23:59 23:59 23:59 Intake Total 149.51 / 394.51 297.50 / 297.50 Output Total 0 / 0 Balance 149.51 / 394.51 297.50 / 297.50 Lab / Micro Data 05/08/24 06:36 05/08/24 06:36 Labs: Laboratory Results - last 24 hr 05/08/24 12:08: Troponin I High Sens 18 Rhythm Strip Rhythm Strip: A-fib Rate: 158 Ectopy: None Cardiology Labs/Tests Rhythm: EKG: ECHO: Stress Test: Cardiac Cath: PCI: CT Surgery: Holter monitor: EPS: PPM: CXR: Chest CT Scan:
[2024-05-09] MEDS: Amiodarone 150 MG in Dextrose 5%-Water (100mL Bag) 100 ML 600 MG IV BOLUS (13:02)
[2024-05-09] MEDS: Amiodarone 360 MG in Dextrose 5% Viaflo Bag 192.8 ML 33.3 MG CONT INF (13:16)
[2024-05-09 14:09] LABS: Partial Thromboplast Time 27.3 Seconds (24.1-36.2)
[2024-05-09] MEDS: Heparin Injection (Vial) 5,000 UNIT/ML VIAL 4500 UNIT IV (14:38)
[2024-05-09] MEDS: HEPARIN/D5w 25,000 UNITS 25,000 UNITS/250 ML IV.SOLN. 10 UNITS CONT INF (14:39)
--- NOTE | 2024-05-09 15:20 | EKG12_ITS ---
Test Reason : RHYTHM CHANGE Blood Pressure : / mmHG Vent. Rate : 090 BPM Atrial Rate : 090 BPM P-R Int : 156 ms QRS Dur : 080 ms QT Int : 360 ms P-R-T Axes : 043 -13 027 degrees QTc Int : 440 ms Normal sinus rhythm Normal ECG When compared with ECG of 08-MAY-2024 06:30, MANUAL COMPARISON REQUIRED, DATA IS UNCONFIRMED Confirmed by ZOEY PEÑALOZA, CORINE ([id number]), supervising film or videotape editor LELA FAJARDO ([id number]) on 05/11/2024 9:58:06 AM Referred By: Confirmed By:CORINE GREER MD
--- NOTE | 2024-05-09 16:42 | PCM.DC.SUM ---
Providers Date of Admission: 05/08/24 Primary Care Physician: Dr. Travon Mata MD Consultations 05/09/24 11:48 Consult: Cardiology Routine Consulting Provider: Margret Morales Reason for Consult: afib EMERGENT Consult: No MD Notified: Yes Date Notified: 05/09/24 Time Notified: 11:48 Method of Notification: Verbal 05/09/24 12:48 Consult: Cardiology Routine Consulting Provider: Margret Morales Reason for Consult: A-FIB RVR EMERGENT Consult: No Notified: Yes Date Notified: 05/09/24 Time Notified: 12:49 Method of Notification: Verbal Reason For Visit: AFIB RVR Diagnosis Discharge Diagnosis (1) Hypothyroid: Status: Acute Code(s): E03.9 - Hypothyroidism, unspecified (2) Morbid obesity: Status: Acute Code(s): E66.01 - Morbid (severe) obesity due to excess calories (3) Atrial fibrillation with rapid ventricular response: Status: Acute Code(s): I48.91 - Unspecified atrial fibrillation Plan: Patient thinks it may be related with her Mounjaro compounding as she gets. I told him not sure that that culprit but seems like she has underlying predisposition to atrial fibrillation. Patient takes metoprolol succinate 25 daily at home. Will increase that to metoprolol tartrate 25 twice daily. Continue with the diltiazem drip and wean as tolerated. Her [id number] is 2 so we will resume apixaban. Plan Hypothyroidism: Continue with her thyroid replacement VTE prophylaxis: Not indicated as patient is anticoagulated. Medications at Discharge Home Medications thyroid (pork) 60 mg tablet ([place] Thyroid) 60 mg PO DAILY THYROID 07/24/23 cholecalciferol (vitamin D3) 25 mcg (1,000 unit) capsule 25 mcg PO DAILY supplement 08/14/23 tirzepatide 10 mg/0.5 mL subcutaneous pen injector (Mounjaro) 40 mg subcut QWEEK 09/11/23 amiodarone 200 mg tablet 200 mg PO BID #90 tabs 05/09/24 apixaban 5 mg tablet (Eliquis) 5 mg PO BID #60 tabs 05/09/24 metoprolol tartrate 25 mg tablet 25 mg PO BID #60 tabs 05/09/24 Hospital Course Operations None Procedures None Summary of Care Provided Minutes Spent on Discharge: 40 Hospital Course: Patient admitted for recurrent atrial fibrillation. Patient was in atrial fibrillation with RVR and required diltiazem drip. Patient was started on metoprolol tartrate 25 twice daily. They had difficult time weaning her off of the diltiazem to which I consulted cardiology. Patient was seen in consultation by Dr. Morales who started her on amiodarone drip and discontinue the diltiazem drip. Patient converted to normal sinus rhythm. I discussed with Dr. Morales and recommended amiodarone 400 mg twice daily for 1 week and then 200 twice daily thereafter. Also he recommend continue with metoprolol tartrate 25 mg twice daily and anticoagulation with apixaban. He recommends a follow-up with the the [facility]. Weight / BMI Weight Weight: 68.8 kg Body Mass Index (BMI) 25.2 ABG / Lab / Microbiology Data 05/08/24 06:36 05/08/24 06:36 Laboratory: Laboratory Results - last 24 hr 05/09/24 13:51: APTT 27.3 D/C Instructions Discharge Diet: No restrictions Meaningful Use Info Meaningful Use Meaningful Use Diagnoses (Choose all that apply): None applicable Ischemic Stroke Statin Dosing Therapy Reference: STATIN DOSE THERAPY REFERENCE: * Patients > 75 years receive moderate or high dose statin therapy. * Patients 75 years or YOUNGER should receive HIGH intensity statin dose unless contraindicated. You will be required to document reason for non-treatment if statin daily dose does not meet guidelines. HIGH DOSE STATIN THERAPY DAILY Atorvastatin > than or = to 40 mg Rosuvastatin > than or = to 20 mg Amlodipine + Atorvastatin > than or = to 2.5/40 mg Ezetimibe + Simvastatin 10/80 mg Simvastatin 80mg Discharge Plan Admission Admit Date/Time: 05/08/24 07:30 Primary Reason for Your Visit: atrial fibrillation Attending Provider: Desmond Miranda Primary Care Provider: Travon Mata Chi Consulting Providers: Margret Morales Discharge Orders/Prescriptions Prescriptions: New metoprolol tartrate 25 mg Tablet 25 mg PO BID Qty: 60 0RF amiodarone 200 mg tablet 200 mg PO BID Qty: 90 0RF Rx Instructions: 2 tabs (400mg) twice daily for 1 week, then 1 tab (200mg) twice daily for 1 week, then 1 tab daily thereafter Eliquis 5 mg tablet 5 mg PO BID Qty: 60 0RF Continued cholecalciferol (vitamin D3) 25 mcg (1,000 unit) capsule 25 mcg PO DAILY Mounjaro 10 mg/0.5 mL pen injector 40 mg subcut QWEEK Patient Comments: patient took 50 units of the pen thyroid (pork) [[place] Thyroid] 60 mg tablet 60 mg PO DAILY Discontinued metoprolol succinate 25 mg tablet extended release 24 hr 25 mg PO DAILY Qty: 60 0RF Referrals / Follow Up: Travon Mata Chi, MD [Primary Care Provider] - Disposition Disposition (needs filled in before D/C Order can be placed): Home, Self Care Charges/Coding Visit Charges Inpatient E&M: 68124 Disch Hosp >30min
== END 2024-05-09 17:23 | disposition home or self-care (01) | DRG 310 ==
LOC: ED 07:30 → PCU 08:28
PROVIDERS: Internal Medicine Interventional Cardiology; Emergency Provider Emergency Medicine; PCP Family Medicine Geriatric Medicine
DX: I48.0 Paroxysmal atrial fibrillation (principal); E03.9 Hypothyroidism, unspecified; Z79.85 Long-term (current) use of injectable non-insulin antidiabetic drugs; Z79.890 Hormone replacement therapy; Z79.899 Other long term (current) drug therapy
CPT/HCPCS: 36415; 71045; 80048; 84484; 85025; 85730; 93005; 97802; 99285; A4216

== ENCOUNTER → 2024-09-08 | Outpatient (CLI) | payer OTHER, SELFPAY ==
[2024-09-08 13:42] LABS: Absolute Lymphocyte Count 2.04 X10^3/uL (0.83-4.51); Absolute Neutrophil Count 2.5 X10^3/uL (2.0-7.7); Basophil# 0.05 X10^3/uL; Eosinophil# 0.12 X10^3/uL; Eosinophils% 2.3 % (0-5); Hematocrit 41.9 % (37-47); Lymphocyte # 2.04 X10^3/ul (0.83-4.51); Lymphocyte % 39.5 % (19-41); Mean Corp Hgb Conc 33.4 g/dL (32-36); Mean Corpuscular Hgb 29.7 pg (27.0-32.0); Mean Corpuscular Volume 88.8 fL (81-99); Mean Platelet Vol. 10.6 fl (6.2-12.0); Monocyte% 7.8 % (0-10); NRBC Flagged by Analyzer 0 % (0-5); Neutrophil # 2.54 X10^3/uL (2.7-7.7); Neutrophil % 49.2 % (47-70); Platelet Count 201 K/mm3 (150-450); RBC Distribution Width CV 13.2 % (11.6-14.6); Red Blood Count 4.72 M/mm3 (4.2-5.4); White Blood Count 5.2 K/mm3 (4.4-11.0)
[2024-09-08 23:33] LABS: ALB/GLOB Ratio 1.7 RATIO (0.9-2.4); AST(SGOT) 22 U/L (<=31); Alanine Aminotransfer ALT/SGPT 13 U/L (<=34); Albumin, Serum 4.6 g/dL (3.5-5.0); Alkaline Phosphatase 62 U/L (35-104); Anion Gap 16 (5-15); BUN 14 mg/dL (4-19); BUN/Creat Ratio 15.9 RATIO (10-20); Calcium 9.5 mg/dL (7.6-11.0); Carbon Dioxide 21.4 mmol/L (22.0-29.0); Chloride 105 mmol/L (96-108); Creatinine, Serum 0.9 mg/dL (0.6-1.0); EST Glomerular Filtration Rate 77 (>60); Globulin 2.6 g/dL (2.2-4.2); Glucose 82 mg/dL (70-99); Potassium 4.3 mmol/L (3.3-5.1); Protein, Total 7.2 g/dL (5.9-8.4); Sodium Level 142 mmol/L (133-145); Total Bilirubin 0.57 mg/dL (0.00-1.30)
== END | disposition home or self-care (01) ==
LOC: POLAB3 13:11
PROVIDERS: PCP Family Medicine Geriatric Medicine; Visit Provider Family Medicine Geriatric Medicine
DX: R53.83 Other fatigue (principal)
CPT/HCPCS: 36415; 80053; 84443; 85025

== ENCOUNTER → 2024-10-07 | Outpatient (CLI) | payer OTHER, SELFPAY ==
--- NOTE | 2024-10-07 10:33 | BI_ITS ---
EXAM: SCRN MAMM (CAD)W/MINH BILAT 10/07/2024 CLINICAL HISTORY: F, Age 59 y/o , SCREENING BREAST CANCER RISK ASSESSMENT: Has not been calculated. TECHNIQUE: Bilateral screening digital breast tomosynthesis with 2D images. Computer aided detection. COMPARISON: Prior exam(s) dated 10/07/2023. FINDINGS: TISSUE DENSITY: The breast tissue is composed of scattered area of fibroglandular density. Bilateral Breast Mammographic Findings: There are no other dominant masses, areas of architectural distortion, or suspicious calcifications. Benign-appearing round microcalcifications are seen in both breast. A stable 6 mm well-circumscribed isodense mass in the superior outer, far posterior aspect of the right breast is noted. This has a fatty hilum and is most compatible with an intramammary lymph node. BI/SCRN MAMM (CAD)W/MINH BILAT IMPRESSION: Right Breast: BIRADS 2 BENIGN FINDING. Left Breast: BIRADS 2 BENIGN FINDING. OVERALL FINAL ASSESSMENT: BIRADS 2 BENIGN FINDING RECOMMENDATION: Routine annual follow-up in 1 Year A letter with findings and recommendations will be mailed to the patient. Reading Location: [id number]
== END | disposition home or self-care (01) ==
PROVIDERS: PCP Family Medicine Geriatric Medicine; Referring Provider Family Medicine Geriatric Medicine; Visit Provider Family Medicine Geriatric Medicine
DX: Z12.31 Encounter for screening mammogram for malignant neoplasm of breast (principal)
CPT/HCPCS: 77063; 77067

== ENCOUNTER → 2024-12-10 | Outpatient (CLI) | payer OTHER, SELFPAY ==
[2024-12-10 09:56] LABS: CORTISOL AM 0.55 ug/dL (6.02-18.40)
== END | disposition home or self-care (01) ==
LOC: LAB 07:18
PROVIDERS: PCP Family Medicine Geriatric Medicine; Referring Provider Family Medicine Geriatric Medicine; Visit Provider Family Medicine Geriatric Medicine
DX: E24.9 Cushing's syndrome, unspecified (principal)
CPT/HCPCS: 36415; 82533

== ENCOUNTER 2024-12-19 10:07 | Emergency (ER) | payer OTHER, SELFPAY ==
[2024-12-19 10:08] VITALS: BP 127/87; PULSE 86; RESP 15; TEMP 36.6; O2SAT 97; BMI 31.0
[2024-12-19 10:44] LABS: Absolute Lymphocyte Count 1.49 X10^3/uL (0.83-4.51); Absolute Neutrophil Count 4.4 X10^3/uL (2.0-7.7); Basophil# 0.04 X10^3/uL; Basophil% 0.6 % (0-1); Eosinophil# 0.05 X10^3/uL; Eosinophils% 0.8 % (0-5); Hematocrit 38.4 % (37-47); Hemoglobin 13.1 g/dL (12.0-15.0); Lymphocyte # 1.49 X10^3/ul (0.83-4.51); Lymphocyte % 23.2 % (19-41); Mean Corp Hgb Conc 34.1 g/dL (32-36); Mean Corpuscular Hgb 30.5 pg (27.0-32.0); Mean Corpuscular Volume 89.3 fL (81-99); Mean Platelet Vol. 9.6 fl (6.2-12.0); Monocyte# 0.38 X10^3/uL; Monocyte% 5.9 % (0-10); NRBC Flagged by Analyzer 0 % (0-5); Neutrophil # 4.43 X10^3/uL (2.7-7.7); Neutrophil % 69.2 % (47-70); Platelet Count 173 K/mm3 (150-450); RBC Distribution Width SD 42.7 fl (35.1-43.9); White Blood Count 6.4 K/mm3 (4.4-11.0)
--- OUTSIDE RECORDS SUMMARY | 2024-12-19 10:44 | XMS RPT_ITS | CCD ---
Author Organization [facility] Care Team Providers Care Cabbage Salter Name Role Phone JESSI CUBA Attending Unavailable JD ROGEL Admitting Unavailable ELDA BRANHAM MD Consulting Unavailable JD RGOEL Attending Unavailable JD ROGEL Primary Care Unavailable PROVIDER, UNKNOWN Consulting Unavailable PROVIDER, UNKNOWN Consulting Unavailable Dr. Elda Branham Chi Primary Care Provider [phone] Dr. Jose Maria Smith Emergency Provider Dr. Quinn Arnold Admit Provider Unavailable Dr. Quinn Arnold Attending Provider Unavailable Dr. Quinn Arnold Other Provider Unavailable Dr. Alex Patel Attending Provider Dr. Jacinto Diane Attending Provider [phone] Quinn Arnold Referring Provider Unavailable Benedicto, Dr. Casey Referring Provider [phone] Dr. Elda Branham Chi Primary Care Provider Dr. Jose Maria Smith Emergency Provider Dr. Quinn Arnold Admit Provider Unavailable Dr. Quinn Arnold Attending Provider Unavailable Dr. Quinn Arnold Other Provider Unavailable Dr. Alex Patel Attending Provider Dr. Quinn Arnold Referring Provider Unavailable Dr. Jacinto Diane Attending Provider [phone] Dr. Jacinto Diane Referring Provider [phone] Elda Branham Chi Referring Provider Adolfo PEÑALOZA, Dr. Elda Damon Primary Care Provider [phone] Adolfo PEÑALOZA, Dr. Elda Damon Attending Provider [phone] Adolfo PEÑALOZA, Dr. Elda Damon Referring Provider Desmond Miranda Admitting Unavailable Adolfo, Elda Chi Primary Care Unavailable Desmond Miranda Consulting Unavailable Desmond Miranda Attending Unavailable BelMargret ballesteros Consulting Unavailable BelalMargret Attending Unavailable Adolfo, Elda Chi Referring Unavailable Jenae Johnson Attending Unavail able Adolfo, Elda Chi Primary Care Unavailable Adolfo, Elda Chi Referring Unavailable Adolfo, Elda Chi Primary Care Unavailable Adolfo, Elda Chi Attending Unavailable Adolfo, Elda Chi Primary Care Unavailable Adolfo, Elda Chi Attending Unavailable Adolfo, Elda Chi Primary Care Unavailable Adolfo, Elda Chi Attending Unavailable Adolfo, Elda Chi Referring Unavailable Adolfo, Elda Chi Primary Care Unavailable Adolfo, Elda Chi Attending Unavailable Desmond Miranda Attending Unavailable Adolfo, Elda Chi Primary Care Unavailable Desmond Miranda Admitting Unavailable Belal, Anthonyouk Consulting Unavailable Allergies Allergy Classification Reported Allergen(s) Allergy Type Date of Onset Reaction(s) Facility (1 source) Seasonal allergy; Translations: [SEASONAL ALLERGIES] Propensity to adverse reactions (disorder) 3 [facility] Repository Medications Current Medications Medication Drug Class(es) Dates Sig (Normalized) Sig (Original) amiodarone hydrochloride 200 mg oral tablet (2 sources) Antiarrhythmic Start: 05-09-2024 take 2 tablets by mouth twice daily, then take 1 tablet by mouth twice daily, then take 1 tablet by mouth once daily Amiodarone 200 mg tablet Active 200 mg PO TWICE A DAY 90 May 09, 2024 12:00am 2 tabs (400mg) twice daily for 1 week, then 1 tab (200mg) twice daily for 1 week, then 1 tab daily thereafter apixaban 5 mg oral tablet (7 sources) Factor Xa Inhibitor Start: 07-25-2023 End: 05-08-2024 take 1 tablet by mouth twice daily Apixaban (Eliquis) 5 mg tablet Active 5 mg PO TWICE A DAY 60 May 09, 2024 12:00am cholecalciferol 0.025 mg oral capsule (4 sources) Vitamin D Start: 08-14-2023 take 1 capsule by mouth once daily Cholecalciferol (Vitamin D3) 25 mcg (1,000 unit) capsule Active 25 ug PO DAILY August 14, 2023 1:00am metoprolol tartrate 25 mg oral tablet (12 sources) beta-Adrenergic Mary Start: 05-09-2024 take 1 tablet by mouth twice daily Metoprolol Tartrate 25 mg Tablet Active 25 mg PO TWICE A DAY 60 May 09, 2024 12:00am Start: 07-24-2023 End: 05-09-2024 take 1 tablet by mouth once daily Metoprolol Succinate 25 mg tablet extended release 24 hr Discontinued 25 mg PO DAILY 60 July 25, 2023 12:20pm May 09, 2024 4:46pm Thyroid (Pork) (Manter Thyroid) 60 mg tablet (5 sources) Start: 07-24-2023 take 1 tablet by mouth once daily Thyroid (Pork) (Manter Thyroid) 60 mg tablet Active 60 mg PO DAILY July 24, 2023 1:00am Start: 07-24-2023 take 1 tablet by mouth once da leonel Thyroid (Pork) (Manter Thyroid) 60 mg tablet Active 60 MG PO DAILY July 24, 2023 1:00am Start: 07-24-2023 take 1 tablet by mouth once da leonel Thyroid (Pork) (Manter Thyroid) 60 mg tablet Active 60 MG PO DAILY July 24, 2023 12:00am Tirzepatide (Mounjaro) 10 mg /0.5 mL pen injector (3 sources) Start: 09-11-2023 Tirzepatide (M ounjaro) 10 mg/0.5 mL pen injector Active 40 mg SC EVERY WEEK September 11, 2023 1:00am Start: 09-11-2023 Tirzepatide (M ounjaro) 10 mg/0.5 mL pen injector Active 40 MG SC EVERY WEEK September 11, 2023 1:00am Completed/Discontinued Medications Medication Drug Class(es) Dates Sig (Normalized) Sig (Original) 24 hr dilTIAZem hydrochloride 120 mg extended release oral capsule (5 sources) Calcium Channel Mary Start: 07-25-2023 End: 05-08-2024 take 1 capsule by mouth once daily Diltiazem Hcl 120 mg Capsule,Extended Release 24hr Discontinued 120 mg PO DAILY July 25, 2023 1:00am May 08, 2024 6:27am estrogens, conjugated (skilled nursing) 0.625 mg/ml vaginal cream (4 sources) Estrogen Start: 08-14-2023 End: 05-08-2024 apply 0.625 mg topically two times weekly Conjugated Estrogens (Premarin) 0.625 mg/gram cream Discontinued 1 NMA TOPICAL TWICE A WEEK August 14, 2023 1:00am May 08, 2024 6:27am Semaglutide (4 sources) Start: 08-14-2023 End: 09-11-2023 Semaglutide (Ozempic) 0.25 mg or 0.5 mg (2 mg/3 mL) pen injector Discontinued 0.25 mg SC EVERY WEEK August 14, 2023 1:00am September 11, 2023 2:03pm for 4 weeks Start: 08-14-2023 End: 09-11-2023 Semaglutide (Ozempic) 0.25 m g or 0.5 mg (2 mg/3 mL) pen injector Discontinued 0.25 MG SC EVERY WEEK August 14, 2023 1:00am September 11, 2023 2:03pm for 4 weeks Start: 08-14-2023 Semaglutide (O zempic) 0.25 mg or 0.5 mg (2 mg/3 mL) pen injector Active 0.25 MG SC EVERY WEEK August 14, 2023 12:00am for 4 weeks Problems Problem Classification Problem Date Documented Date Episodic/Chronic Cardiac dysrhythmias (17 sources) Atrial fibrillation with rapid ventricular response; Translations: [Unspecified atrial fibrillation] Onset: 4 07-24-2023 Chronic Cardiac dysrhythmias (4 sources) Tachycardia; Translations: [Tachycardia, unspecified] 08-14-2023 Episodic Disorders of lipid metabolism (8 sources) 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; Translations: [Familial hypercholesterolemia] 08-14-2023 Chronic Malaise and fatigue (5 sources) Fatigue; Translations: [Other fatigue] Onset: 5 08-14-2023 Episodic Menopausal disorders (4 sources) Atrophic vaginitis; Translations: [Postmenopausal atrophic vaginitis] 08-14-2023 Chronic Nutritional deficiencies (4 sources) Vitamin D deficiency; Translations: [Vitamin D deficiency, unspecified] 08-14-2023 Chronic Osteoarthritis (4 sources) Osteoarthritis; Translations: [Unspecified osteoarthritis, unspecified site] 08-14-2023 Chronic Other endocrine disorders (1 source) Eric's syndrome, unspecified; 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, unspecified] Onset: 5 Chronic Other nutritional; endocrine; and metabolic disorders (4 sources) Morbid obesity; Translations: [Morbid (severe) obesity due to excess calories] 08-14-2023 Chronic Other nutritional; endocrine; and metabolic disorders (1 source) Morbid (severe) obesity due to excess calories; Translations: [Morbid (severe) obesity due to excess calories] Onset: 4 Chronic Other nutritional; endocrine; and metabolic disorders (5 sources) H/O: thyroid disorder; Translations: [Personal history of other endocrine, nutritional and metabolic disease] 07-24-2023 Episodic Other nutritional; endocrine; and metabolic disorders (1 source) Personal history of other endocrine, nutritional and metabolic disease; Translations: [Personal history of other endocrine, metabolic, and immunity disorders] 07-25-2023 Episodic Other screening for suspected conditions (not mental disorders or infectious disease) (1 source) Encounter for screening mammogram for malignant neoplasm of breast; Translations: [Encounter for screening mammogram for malignant neoplasm of breast] Onset: 5 Episodic Residual codes; unclassified (5 sources) FH: Cardiovascular disease; Translations: [Family history of ischemic heart disease and other diseases of the circulatory system] 07-24-2023 Episodic Residual codes; unclassified (3 sources) Family history of ischemic heart disease and other diseases of the circulatory system; Translations: [Family history of other cardiovascular diseases] 07-25-2023 Episodic Syncope (4 sources) Syncope; Translations: [Syncope and collapse] 08-14-2023 Episodic Thyroid disorders (5 sources) Hypothyroidism; Translations: [Hypothyroidism, unspecified] Onset: 4 08-14-2023 Chronic Results Test Name Value Interpretation Reference Range Facility L509.6001on 12-10-2024 CORTISOL 0.55 ug/dL Low 6.02-18.40 [facility] Comment on above: Performed By: #### L 509.6001 #### [facility] [address] [place], [address] Cardiology Visit Reporton Cardiology Visit Report [facility] [address] [place] [address] OFFICE VISIT Date of Service: 10/29/24 MR#: [id number] Acct: [id number] Name: ROSEMARIE VASQUEZ Rep #: [id number] : 1965 Provider: LATASHA Anderson Age/Sex: 59/F Location[place] [facility] Status: Signed HPI HPI History of Present Illness Details: Pleasant 59-year-old lady with no previous cardiac history but a family history of atrial fibrillation. She tells me that she was admitted to the hospital in July of 2023 with an irregular heartbeat and was diagnosed as having atrial fibrillation. She had a rapid ventricular response rate she had a CTA of her chest with demonstrated no evidence of pulmonary embolism and she had an echocardiogram which demonstrated preserved ejection fraction of 55% with eccentric mild mitral regurgitation. She was placed on a beta-mary and calcium channel mary she spontaneously converted to sinus rhythm after a Cardizem drip. She was discharged home on Cardizem and apixaban for possible cardioversion as an outpatient. She has not had any recurrence of her Afib that she is aware of. Intake Vital Signs 09/11/23 13:00 05/08/24 13:37 10/29/24 14:05 Height 5 ft 5 in 5 ft 5 in 5 ft 5 in Weight: 184 lb BMI 30.6 BP 115/68 Blood Pressure Location Lt brachial Position Sitting Respiration 16 Pulse 89 Pulse Source NIBP Intake Visit Reasons: 1 Y FU Dry Transfer Man Required: No Is patient in pain?: No Allergies No Known Allergies Allergy (Verified 10/29/24 14:09) Medications ???Medication ???Instructions ???Recorded ???Confirmed ???Type thyroid (pork) 60 mg tablet 60 mg PO DAILY THYROID 07/24/23 History (Manter Thyroid) cholecalciferol (vitamin D3) 25 25 mcg PO DAILY supplement 4 10/29/24 History mcg (1,000 unit) capsule metoprolol tartrate 25 mg tablet 25 mg PO BID #60 tabs 05/09/24 Rx aspirin 81 mg tablet,delayed 81 mg PO DAILY #1 TAB 10/29/24 Rx release (Adult Aspirin Regimen) conjugated estrogens 0.625 mg/gram 1 vaginal 2XW 10/29/24 10/29/24 History vaginal cream (Premarin) semaglutide (weight loss) 0.25 0.25 mg subcut QWEEK 10/29/2410/13 History mg/0.5 mL subcutaneous pen injector (Wegovy) Ejection fraction %: 55 Have you fallen in the past year?: No PFSH Medical History Hyperlipidemia Atrial fibrillation Fatigue Familial hypercholesterolemia due to heterozygous low density lipoprotein (LDL) receptor mutation Osteoarthritis Tachycardia Vitamin D deficiency Atrophic vaginitis Morbid obesity Hypothyroid Syncope Surgical History Hx of abdominoplasty Hx of thyroidectomy Family History Brother Heart failure Mother Hepatitis a without hepatic coma Brother Afib Sister Afib Father Cancer Social History Smoking Status: Never smoker alcohol intake: never substance use type: does not use caffeine: Yes Type: coffee Number of servings: 2 ROS Const Const: Negative for fatigue or weakness Eyes Eyes: Negative for change in vision ENT ENT: Negative for dizziness or balance problems Cardio Chest Pain: No Palpitations: No Edema: None Resp Respiratory: Negative for SOB with activity, SOB at rest or SOB orthopnea SOB lying down GI GI: Negative nausea or heartburn Musc Musc: Negative for balance problems Neuro Neuro: Negative for dizziness, lightheadedness, near syncope, syncope or weakness Endo Endo: Negative for fatigue Cardiology Exam Const Appearance: cooperative, no acute distress and well developed Orientation: alert, awake and oriented x3 Head Head: normocephalic and atraumatic Mouth: moist mucous membranes Eyes General: appearance normal, both eyes and all related structures Conjunctivae: conjunctivae normal Pupils: PERRL EOM: EOM intact bilaterally Neck Neck: normal visual inspection, no lymphadenopathy and no JVD Carotids: Negative bruit Neck Mass: Negative Neck mass Chest Chest inspection: normal inspection of the chest and symmetric chest movement Auscultation: Bilateral: Clear to Auscultation Cardio Palpation: normal PMI Rate: regular rate Rhythm: regular rhythm Heart sounds: S1 normal and S2 normal; Negative rub, gallop or murmur GI GI: normal to inspection, soft, no hepatosplenomegaly and bowel sounds present; Negative tender Neuro General: patient alert, patient awake, patient oriented x3, CN's II-XI intact bilaterally and moves all extremities Extremities Pulses: Normal: Right Posterior Tibial Pulse, Left Posterior Tibial Pul (more content not included)... Normal [facility] Breast imaging reportOrdered By: Naida Oseguera on 10-08-2024 Study report [facility] Imaging Services [address] [place] [address] SCRN MAMM (CAD)W/MINH BILAT MR#: [id number] Acct: [id number] Name: ROSEMARIE VASQUEZ Rep #: [id number] : 1965 F 59 From: Sukh Oseguera DO PCP: Dr. Elda Branham MD Status: JOSE ALBERTO TURCIOS Study:SCRN MAMM (CAD)W/MINH BILAT Date of Exa m: 10/07/24 Exam# [id number] Ordering Dr: Elda Branham MD EXAM: SCRN MAMM (CAD)W/MINH BILAT 10/07/2024 CLINICAL HISTORY: F, Age 59 y/o , SCREENING BREAST CANCER RISK ASSESSMENT: Has not been calculated. TECHNIQUE: Bilateral screening digital breast tomosynthesis with 2D images. Computer aided detection. COMPARISON: Prior exam(s) dated 10/07/2023. FINDINGS: TISSUE DENSITY: The breast tissue is composed of scattered area of fibroglandular density. Bilateral Breast Mammographic Findings: There are no other dominant masses, areas of architectural distortion, or suspicious calcifications. Benign-appearing round microcalcifications are seen in both breast. A stable 6 mm well-circumscribed isodense mass in the superior outer, far posterior aspect of the right breast is noted. This has a fatty hilum and is most compatible with an intramammary lymph node. BI/SCRN MAMM (CAD)W/MINH BILAT IMPRESSION: Right Breast: BIRADS 2 BENIGN FINDING. Left Breast: BIRADS 2 BENIGN FINDING. OVERALL FINAL ASSESSMENT: BIRADS 2 BENIGN FINDING RECOMMENDATION: Routine annual follow-up in 1 Year A letter with findings and recommendations will be mailed to the patient. Reading Location: [id number] CC: Dr. Elda Branham MD ~ Woodwork Teacher: Signed [facility] SCRN MAMM (CAD)W/MINH BILATo n 10-07-2024 SCRN MAMM (CAD)W/MINH BILAT [facility] Imaging Services [address] [place] [address] SCRN MAMM (CAD)W/MINH BILAT MR#: [id number] Acct: [id number] Name: ROSEMARIE VASQUEZ Rep #: [id number] : 1965 F 59 From: Naida Golden O PCP: Dr. Elda Branham MD Status: REG CLI Study: SCRN MAMM (CAD)W/MINH BILAT Date of Exam: 09/13 01/06 Exam# [id number] Ordering Dr: Elda Branham MD EXAM: SCRN MAMM (CAD)W/MINH BILAT 10/07/2024 CLINICAL HISTORY: F, Age 59 y/o , SCREENING BREAST CANCER RISK ASSESSMENT: Has not been calculated. TECHNIQUE: Bilateral screening digital breast tomosynthesis with 2D images. Computer aided detection. COMPARISON: Prior exam(s) dated 10/07/2023. FINDINGS: TISSUE DENSITY: The breast tissue is composed of scattered area of fibroglandular density. Bilateral Breast Mammographic Findings: There are no other dominant masses, areas of architectural distortion, or suspicious calcifications. Benign-appearing round microcalcifications are seen in both breast. A stable 6 mm well-circumscribed isodense mass in the superior outer, far posterior aspect of the right breast is noted. This has a fatty hilum and is most compatible with an intramammary lymph node. BI/SCRN MAMM (CAD)W/MINH BILAT IMPRESSION: Right Breast: BIRADS 2 BENIGN FINDING. Left Breast: BIRADS 2 BENIGN FINDING. OVERALL FINAL ASSESSMENT: BIRADS 2 BENIGN FINDING RECOMMENDATION: Routine annual follow-up in 1 Year A letter with findings and recommendations will be mailed to the patient. Reading Location: [id number] CC: Dr. Elda Branham MD Woodwork Teacher: Signed Normal [facility] Absolute neutrophil countOrd ered By: Elda Branham on 09-08-2024 Neutrophils (Bld) [#/Vol] 2.5 10*3/uL 2.0-7.7 [facility] BUN/creatinine ratioOrdered By: Elda Branham on 09-08-2024 Urea nitrogen/Creatinine [Mass ratio] 15.9 mg/mg 10-20 [facility] Basophil percentageOrdered B y: Elda Branham on 09-08-2024 Basophils/100 WBC (Bld) 1.0 % 0-1 [facility] Bilirubin, totalOrdered By: Elda Branham on 09-08-2024 Bilirubin [Mass/Vol] 0.57 mg/dL 0.00-1.[address] [facility] CBC W/Diff, Automatedon 08-16 Absolute Lymph 2.04 X10 3/uL Normal 0.83-4.51 [facility] Comment on above: Performed By: #### L 501.4020 #### [facility] [address] [place], [address] Absolute Neut 2.5 X10 3/uL Normal 2.0-7.7 [facility] Comment on above: Performed By: #### L [id number] #### [facility] [address] [facility] [place], [address] Basophils/100 WBC (Bld) 1.0 % Normal 0-1 [facility] Comment on above: Performed By: #### L 501.4020 #### [facility] [address] [facility] [place], [address] Eosinophils/100 WBC (Bld) 2.3 % Normal 0-5 [facility] Comment on above: Performed By: #### L [id number] #### [facility] [address] [place], [address] Erythrocyte distribution width (RBC) [Ratio] 13.2 % Normal 11.6-14.6 [facility] Comment on above: Performed By: #### L [id number] #### [facility] [address] [place], [address] Hematocrit (Bld) [Volume fraction] 41.9 % Normal 37-47 [facility] Comment on above: Performed By: #### L [id number] #### [facility] [address] [place], [address] Hemoglobin (Bld) [Mass/Vol] 14.0 g/dL Normal 12.0-15.0 [facility] Comment on above: Performed By: #### L [id number] #### [facility] [address] [place], [address] IG% 0.200 Normal 0.0-0.9 [facility] Comment on above: Result Comment: IG% - Immature Granulocytes (promyelocytes, myelocytes and metamyelocytes) > 1% indicates that a LEFT SHIFT is Present. Performed By: #### L 501.4020 #### [facility] [address] [place], [address] Lymphocytes/100 WBC (Bld) 39.5 % Normal 19-41 [facility] Comment on above: Performed By: #### L 501.4020 #### [facility] [address] [place], [address] MCH (RBC) [Entitic mass] 29.7 pg Normal 27.0-32.0 [facility] Comment on above: Performed By: #### L [id number] #### [facility] [address] [place], [address] MCHC (RBC) [Mass/Vol] 33.4 g/dL Normal 32-36 [facility] Comment on above: Performed By: #### L [id number] #### [facility] [address] [place], [address] MCV (RBC) [Entitic vol] 88.8 fL Normal 81-99 [facility] Comment on above: Performed By: #### L [id number] #### [facility] [address] [place], [address] Monocytes/100 WBC (Bld) 7.8 % Normal 0-10 [facility] Comment on above: Performed By: #### L [id number] #### [facility] [address] [place], [address] Neutrophils/100 WBC (Bld) 49.2 % Normal 47-70 [facility] Comment on above: Performed By: #### L [id number] #### [facility] [address] [place], [address] Nucleated RBC (Bld) [#/Vol] 0 10*3/uL Normal 0-5 [facility] Comment on above: Performed By: #### L [id number] #### [facility] [address] [place], [address] Platelet mean volume (Bld) [Entitic vol] 10.6 fL Normal 6.2-12.0 [facility] Comment on above: Performed By: #### L [id number] #### [facility] [address] [place], [address] Platelets (Bld) [#/Vol] 201 10*3/uL Normal 150-450 [facility] Comment on above: Performed By: #### L [id number] #### [facility] [address] [place], [address] RBC (Bld) [#/Vol] 4.72 10*6/uL Normal 4.2-5.4 [facility] Comment on above: Performed By: #### L [id number] #### [facility] [address] [place], [address] RDW SD 43.0 fl Normal 35.1-43.9 [facility] Comment on above: Performed By: #### L [id number] #### [facility] [address] [place], [address] WBC (Bld) [#/Vol] 5.2 10*3/uL Normal 4.4-11.[address] [facility] Comment on above: Performed By: #### L [id number] #### [facility] [address] [place], [address] Carbon dioxide measurementOr dered By: Elda Branham on 09-08-2024 CO2 [Moles/Vol] 21.4 mmol/L Low 22.0-29.0 [facility] Chloride measurementOrdered By: Elda Branham on 09-08-2024 Chloride [Moles/Vol] 105 mmol/L 96-[address] [facility] Comprehensive Metabolic Prof ilon 09-08-2024 Albumin [Mass/Vol] 4.6 g/dL Normal 3.5-5.[address] [facility] Comment on above: Performed By: #### L [id number] #### [facility] [address] [place], [address] Albumin/Globulin [Mass ratio] 1.7 {ratio} Normal 0.9-2.4 [facility] Comment on above: Performed By: #### L [id number] #### [facility] [address] [place], [address] ALK PHOS 62 U/L Normal 35-104 [facility] Comment on above: Performed By: #### L [id number] #### [facility] [address] [place], [address] ALT [Catalytic activity/Vol] 13 U/L Normal <=34 [facility] Comment on above: Performed By: #### L [id number] #### [facility] [address] [place], [address] Anion gap [Moles/Vol] 16 mmol/L High 5-15 [facility] Comment on above: Performed By: #### L [id number] #### [facility] [address] [place], [address] AST [Catalytic activity/Vol] 22 U/L Normal <=31 [facility] Comment on above: Performed By: #### L [id number] #### [facility] [address] [place], [address] Bilirubin [Mass/Vol] 0.57 mg/dL Normal 0.00-1.[address] [facility] Comment on above: Performed By: #### L [id number] #### [facility] [address] [place], [address] BUN/CRE 15.9 RATIO Normal 10-20 [facility] Comment on above: Performed By: #### L [id number] #### [facility] [address] [place], [address] Calcium [Mass/Vol] 9.5 mg/dL Normal 7.6-11.[address] [facility] Comment on above: Performed By: #### L [id number] #### [facility] [address] [place], [address] Chloride [Moles/Vol] 105 mmol/L Normal 96-[address] [facility] Comment on above: Performed By: #### L [id number] #### [facility] [address] [place], [address] CO2 [Moles/Vol] 21.4 mmol/L Low 22.0-29.0 [facility] Comment on above: Performed By: #### L [id number] #### [facility] [address] [place], [address] Creatinine [Mass/Vol] 0.9 mg/dL Normal 0.6-1.0 [facility] Comment on above: Performed By: #### L [id number] #### [facility] Laboratory [address] [place], [address] GFR/1.73 sq M.predicted among non-blacks MDRD (S/P/Bld) [Vol rate/Area] 77 mL/min/{1.73_m2} Normal >60 [facility] Comment on above: Result Comment: mL/m in/1.73m2 CKD-EPI Creatinine Equation (2020) Performed By: #### L 501.4020 #### [facility] [address] [place], [address] Globulin (S) [Mass/Vol] 2.6 g/dL Normal 2.2-4.2 [facility] Comment on above: Performed By: #### L 501.4020 #### [facility] [address] [place], [address] Glucose [Mass/Vol] 82 mg/dL Normal 70-[address] [facility] Comment on above: Performed By: #### L 501.4020 #### [facility] [address] [place], [address] Potassium [Moles/Vol] 4.3 mmol/L Normal 3.3-5.1 [facility] Comment on above: Performed By: #### L 501.4020 #### [facility] [address] [place], [address] Sodium [Moles/Vol] 142 mmol/L Normal 133-[address] [facility] Comment on above: Performed By: #### L 501.4020 #### [facility] [address] [place], [address] T PROT 7.2 g/dL Normal 5.9-8.4 [facility] Comment on above: Performed By: #### L 501.4020 #### [facility] [address] [place], [address] Urea nitrogen [Mass/Vol] 14 mg/dL Normal 4-19 [facility] Comment on above: Performed By: #### L 501.4022 #### [facility] [address] [place], [address] Creatinine [Moles/Vol]Ordere d By: Elda Branham on 09-08-2024 Creatinine [Mass/Vol] 0.9 mg/dL 0.6-1.0 [facility] Eosinophil percentageOrdered By: Elda Branham 09-08-2024 Eosinophils/100 WBC (Bld) 2.3 % 0-5 [facility] Erythrocyte distribution wid th ratioOrdered By: Elda Branham 09-08-2024 Erythrocyte distribution width (RBC) [Ratio] 13.2 % 11.6-14.6 [facility] Erythrocyte distribution wid th standard deviationOrdered By: [facility] 09-08-2024 Erythrocyte distribution width (RBC) [Entitic vol] 43.0 fL 35.1-43.9 [facility] GFR/1.73 sq M.predicted zunilda g non-blacks MDRD (S/P/Bld) [Vol rate/Area]Ordered By: Elda Branham 09-08-2024 Estimated GFR (MDRD) Non-Af Amer 77 >60 [facility] Comment on above: mL/min/1.73m2 CKD-EP I Creatinine Equation (2020) Hematocrit Auto (Bld) [Volum e fraction]Ordered By: [facility] 09-08-2024 Hematocrit (Bld) [Volume fraction] 41.9 % 37-47 [facility] Hemoglobin measurementOrdere d By: Elda Branham 09-08-2024 Hemoglobin (Bld) [Mass/Vol] 14.0 g/dL 12.0-15.0 [facility] Immature granulocytes/100 WB C Auto (Bld)Ordered By: Elda Branham 09-08-2024 Immature granulocytes/100 WBC (Bld) 0.200 % 0.0-0.9 [facility] Comment on above: IG% - Immature Granu locytes (promyelocytes, myelocytes and metamyelocytes) > 1% indicates that a LEFT SHIFT is Present. Laboratory - Chemistry and C hemistry - challengeOrdered By: Elda Branham on 09-08-2024 AST [Catalytic activity/Vol] 22 U/L <32 [facility] Lymphocytes Auto (Unsp spec) [#/Vol]Ordered By: Elda Branham on 09-08-2024 Lymphocytes (Bld) [#/Vol] 2.04 10*3/uL 0.83-4.51 [facility] Lymphocytes/100 WBC Auto (Un sp spec)Ordered By: Elda Branham on 09-08-2024 Lymphocytes/100 WBC (Bld) 39.5 % 19-41 [facility] MCV (mean corpuscular volume ) determinationOrdered By: Elda Branham on 09-08-2024 MCV (RBC) [Entitic vol] 88.8 fL 81-99 [facility] Mean corpuscular hemoglobin (MCH) determinationOrdered By: Elda Branham on 09-08-2024 MCH (RBC) [Entitic mass] 29.7 pg 27.0-32.0 [facility] Mean corpuscular hemoglobin concentration (MCHC) determinationOrdered By: Elda Branham on 09-08-2024 MCHC (RBC) [Mass/Vol] 33.4 g/dL 32-36 [facility] Mean platelet volume determi nationOrdered By: Elda Branham on 09-08-2024 Platelet mean volume (Bld) [Entitic vol] 10.6 fL 6.2-12.0 [facility] Monocyte percentageOrdered B y: Elda Branham on 09-08-2024 Monocytes/100 WBC (Bld) 7.8 % 0-10 [facility] Neutrophil percentageOrdered By: Elda Branham on 09-08-2024 Neutrophils/100 WBC (Bld) 49.2 % 47-70 [facility] Nucleated red blood cell per centageOrdered By: Elda Branham on 09-08-2024 Nucleated RBC/100 WBC (Bld) [Ratio] 0 % 0-5 [facility] Platelet countOrdered By: Bill Branham on 09-08-2024 Platelets (Bld) [#/Vol] 201 10*3/uL 150-450 [facility] RBC Auto (Bld) [#/Vol]Ordere d By: Elda Branham on 09-08-2024 RBC (Bld) [#/Vol] 4.72 10*6/uL 4.2-5.4 [facility] Serum globulin measurementOr dered By: Elda Branham on 09-08-2024 Globulin (S) [Mass/Vol] 2.6 g/dL 2.2-4.2 [facility] Serum glucose measurement (m ass/volume)Ordered By: Elda Branham on 09-08-2024 Glucose [Mass/Vol] 82 mg/dL 70-[address] [facility] Serum or plasma alanine hogan otransferase (ALT) measurementOrdered By: Elda Branham on 09-08-2024 ALT [Catalytic activity/Vol] 13 U/L <35 [facility] Serum or plasma albumin vinicius urement (mass/volume)Ordered By: Elda Branham on 09-08-2024 Albumin [Mass/Vol] 4.6 g/dL 3.5-5.[address] [facility] Serum or plasma albumin/glob ulin mass ratioOrdered By: Elda Branham on 09-08-2024 Albumin/Globulin [Mass ratio] 1.7 {ratio} 0.9-2.4 [facility] Serum or plasma alkaline raulito sphatase measurementOrdered By: Elda Branham 09-08-2024 ALP [Catalytic activity/Vol] 62 U/L 35-104 [facility] Serum or plasma anion gap de termination (moles/volume)Ordered By: Elda Branham on 09-08-2024 Anion gap [Moles/Vol] 16 mmol/L High 5-15 [facility] Serum or plasma calcium vinicius urement (mass/volume)Ordered By: Elda Branham on 09-08-2024 Calcium [Mass/Vol] 9.5 mg/dL 7.6-11.[address] [facility] Serum or plasma potassium me asurementOrdered By: Elda Branham 09-08-2024 Potassium [Moles/Vol] 4.3 mmol/L 3.3-5.1 [facility] Serum or plasma sodium measu rement (moles/volume)Ordered By: Elda Branham on 09-08-2024 Sodium [Moles/Vol] 142 mmol/L 133-[address] [facility] Serum or plasma urea nitroge n measurement (mass/volume)Ordered By: Elda Branham on 09-08-2024 Urea nitrogen [Mass/Vol] 14 mg/dL 4-19 [facility] TSH DL <= 0.005 mIU/L QnOrde red By: Elda Branham on 09-08-2024 Thyroid Stimulating Hormone (TSH) 1.490 uIU/mL 0.300-4.200 [facility] Thyroid Stim Hormone (TSH)on 09-08-2024 TSH 1.490 uIU/mL Normal 0.300-4.200 [facility] Comment on above: Performed By: #### L 501.4020 #### [facility] [address] [place], [address] Total proteinOrdered By: Elda Branham on 09-08-2024 Protein [Mass/Vol] 7.2 g/dL 5.9-8.[address] [facility] White blood cell (WBC) count Ordered By: Elda Branham on 09-08-2024 WBC (Bld) [#/Vol] 5.2 10*3/uL 4.4-11.[address] [facility] 12 Lead EKGon 05-09-2024 12 Lead EKG [facility] Cardiovascular Services [address] [place] [address] 12 Lead EKG 05/09/24 1531 MR#: [id number] Acct: [id number] Name: ROSEMARIE VASQUEZ Rep #: [id number] : 1965 58 From: Jacinto Diane MD Attending Dr: Dr. Desmond Miranda, DO Status: DIS IN Ordering Dr: Margret Morales MD Date: 05/09/24 Location: [facility] Sex: F C Admitted: 05/08/24 Test Reason : RHYTHM CHANGE Blood Pressure : / mmHG Vent. Rate : 090 BPM Atrial Rate : 090 BPM P-R Int : 156 ms QRS Dur : 080 ms QT Int : 360 ms P-R-T Axes : 043 -13 027 degrees QTc Int : 440 ms Normal sinus rhythm Normal ECG When compared with ECG of 08-MAY-2024 06:30, MANUAL COMPARISON REQUIRED, DATA IS UNCONFIRMED Confirmed by BENEDICTO PEÑALOZA, JACINTO ([id number]), medical editor LELA FAJARDO ([id number]) on 05/11/2024 9:58:06 AM Referred By: Confirmed By:JACINTO DIANE MD 05/11/24 0958 Date Jacinto Diane MD CC: Dr. Desmond Miranda DO; Dr. Margret Morales MD; Dr. Elda Branham MD Signed Normal [facility] Consultation - Cardiologyon 05-09-2024 Consultation - Cardiology [facility] Medical Records Department [address] [place] [address] Consultation - Cardiology 05/09/24 1239 MR#: [id number] Acct: [id number] Name: ROSEMARIE VASQUEZ Rep #: [id number] : 1965 58 From: Margret Morales MD PCP: Dr. Elda Branham MD Status:ADM IN Location: [place] [address] Assessment Plan Assessment/Plan (1) Hypothyroid: (2) Morbid obesity: (3) Atrial fibrillation with rapid ventricular response: PLAN: Plan Cardiac care plan recommendation 58-year-old patient presented to the ER he had [facility] complaining of palpitation Does not have any active chest pain no symptoms of shortness of breath. Patient had history of paroxysmal atrial fibrillation In July 2023 she had episode of A-fib Treated with Cardizem and metoprolol in addition to Eliquis Based on Chads-Vasc score of 2 she was started on anticoagulation in addition to rate control With metoprolol and Cardizem She been seen and followed in the office by her primary billet bed operator When she been evaluated by echocardiogram showed LV function is preserved with mild eccentric mitral regurgitation. On this admission she had A-fib with RVR does not respond very well to calcium channel mary and beta-mary. Therefore we will start on heparin as well as on amiodarone. With the plan if she converted to sinus to resume her anticoagulation with Eliquis Will also consider reevaluating by echocardiogram and if LV function is preserved option of antiarrhythmic medication with flecainide This can be discussed further with the patient. Other options if she continues to have episodes of paroxysmal A-fib is to refer her for early A-fib ablation. Margret Morales MD,[facility],FSCAI l HPI Consult Data Date of Consult: 05/09/24 HPI Narrative Reason for Consultation: Paroxysmal A-fib HPI Narrative: ROSEMARIE VASQUEZ, is a 58 F who presents 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 Osteoarthritis Tachycardia Vitamin D deficiency Atrophic vaginitis Morbid obesity Hypothyroid Atrial fibrillation Syncope Home Medications ???Medication ???Instructions ???Recorded ???Last Taken ???Type thyroid (pork) 60 mg tablet 60 mg PO DAILY THYROID 07/24/23 Unknown History ([place] Thyroid) metoprolol succinate 25 mg 25 mg PO DAILY BLOOD PRESSURE #60 07/25/23 Unknown Rx tablet,extended release 24 hr tabs cholecalciferol (vitamin D3) 25 25 mcg PO DAILY supplement 08/14/23 Unknown History mcg (1,000 unit) capsule tirzepatide 10 mg/0.5 mL 40 mg subcut QWEEK 09/11/23 05/04/24 History subcutaneous pen injector (Mounjaro) Allergy/AdvReac Type Severity Reaction Status Date / Time No Known Allergies Allergy Verified 05/08/24 06:27 Family History Brother Heart failure Mother Hepatitis a without hepatic coma Brother Afib Sister Afib Father Cancer Surgical History Hx of abdominoplasty Hx of thyroidectomy Social History Smoking Status: Never smoker Physical Exam Cardio Cardio Narrative: Patient seen and evaluated at bedside along with the nursing staff at bedside at time of evaluation Sitting in chair comfortable Review of the environmental monitoring specialist showed underlying A-fib with RVR Cardiac exam S1-S2 is irregular No systolic or diastolic murmur Chest exam clear to auscultation bilateral Examination lower extremity no lower extremity edema Pedal pulses palpable. Risk Stratification Risk Stratification Applicable: No Objective Data Vital Signs: Vital Signs Temp Pulse Resp BP Pulse Ox O2 Del Method 97.1 F L 98 18 92/52 L 98 Room Air 05/09/24 04:00 05/09/24 10:30 05/09/24 10:00 05/09/24 10:00 05/09/24 10:00 05/09/24 10:00 Oxygen Delivery Method Room Air Weight: 151 lb 10.848 oz Body Mass Index (BMI) 25.2 Intake Output: Intake and Output for Last 24 Hours 05/07/24 05/08/24 05/09/24 23:59 23:59 23:59 Intake Total 149.51 / 394.51 297.50 / 297.50 Output Total 0 / 0 Balance 149.51 / 394.51 297.50 / 297.50 Lab / Micro Data 05/08/24 06:36 05/08/24 06:36 Labs: Laboratory Results - last 24 hr 05/08/24 12:08: Troponin I High Sens 18 Rhythm Strip Rhythm Strip: A-fib Rate: 158 Ectopy: None Cardiology Labs/Tests Rhythm: EKG: ECHO: Stress Test: Cardiac Cath: PCI: CT Surgery: Holter monitor: EPS: PPM: CXR: Chest CT Scan: 05/09/24 1249 Cosigner Signature (if applicable): CC: (more content not included)... Normal [facility] Partial Thromboplast Timeon 05-09-2024 aPTT Coag (Bld) [Time] 27.3 s Normal 24.1-36.2 [facility] Comment on above: Performed By: #### L 868.7960 #### [facility] [address] [facility] [place], [address] 12 Lead EKGon 05-08-2024 12 Lead EKG [facility] Cardiovascular Services [address] [place] [address] 12 Lead EKG 05/08/24 0630 MR#: [id number] Acct: [id number] Name: ROSEMARIE VASQUEZ Rep #: [id number] : 1965 58 From: Jacinto Diane MD Attending Dr: Dr. Desomnd Miranda DO Status: DIS IN Ordering Dr: Desmond Gamez DO Date: 05/08/24 Location: [facility] Sex: F C Admitted: 05/08/24 Test Reason : PALPITATIONS Blood Pressure : / mmHG Vent. Rate : 158 BPM Atrial Rate : 000 BPM P-R Int : 000 ms QRS Dur : 070 ms QT Int : 276 ms P-R-T Axes : 000 -02 182 degrees QTc Int : 447 ms Atrial fibrillation with rapid ventricular response Nonspecific ST and T wave abnormality Abnormal ECG Confirmed by BENEDICTO PEÑALOZA, JACINTO ([id number]), medical editor LELA FAJARDO ([id number]) on 05/11/2024 9:20:45 AM Referred By: Confirmed By:JACINTO DIANE MD 05/11/24919 Date Jacinto Diane MD CC: Dr. Desmond Miranda DO; Dr. Desmond Gamez DO; Dr. Elda Branham MD Signed Normal [facility] Basic Metabolic Profile (BMP )on 05-08-2024 BUN/CRE 15.1 RATIO Normal - [facility] Comment on above: Order Comment: 'TROP ' Serial specimen #1, #2 or #3: 1 Performed By: #### L 500.2500, L501.4020, L100.0100 #### [facility] [address] [place], [address] CA,Total 8.8 mg/dL Normal 8.5-10.1 [facility] Comment on above: Order Comment: 'TROP ' Serial specimen #1, #2 or #3: 1 Performed By: #### L 500.2500, L501.4020, L100.0100 #### [facility] [address] [place], [address] Chloride [Moles/Vol] 115 mmol/L High 98-[address] [facility] Comment on above: Order Comment: 'TROP ' Serial specimen #1, #2 or #3: 1 Performed By: #### L 500.2500, L501.4020, L100.0100 #### [facility] [address] [place], [address] CO2 [Moles/Vol] 24.0 mmol/L Normal 21.0-32.0 [facility] Comment on above: Order Comment: 'TROP ' Serial specimen #1, #2 or #3: 1 Performed By: #### L 500.2500, L501.4020, L100.0100 #### [facility] [address] [place], [address] Creatinine [Mass/Vol] 0.79 mg/dL Normal 0.55-1.02 [facility] Comment on above: Order Comment: 'TROP ' Serial specimen #1, #2 or #3: 1 Result Comment: The validity of the calculated GFR GFRAA in patients over 70 years has not been determined. Clinical correlation is essential. Performed By: #### L 500.2500, L501.4020, L100.0100 #### [facility] [address] [place], [address] ECRCL 82.93 ml/min Normal [facility] Comment on above: Order Comment: 'TROP ' Serial specimen #1, #2 or #3: 1 Performed By: #### L 500.2500, L501.4020, L100.0100 #### [facility] [address] [place], [address] EST GFR - AA 96 mL/min Normal >60 [facility] Comment on above: Order Comment: 'TROP ' Serial specimen #1, #2 or #3: 1 Result Comment: Afri can [place] GFR Calc Performed By: #### L 500.2500, L501.4020, L100.0100 #### [facility] [address] [place], [address] GAP 5 Normal 5-15 [facility] Comment on above: Order Comment: 'TROP ' Serial specimen #1, #2 or #3: 1 Performed By: #### L 500.2500, L501.4020, L100.0100 #### [facility] [address] [place], [address] GFR/1.73 sq M.predicted among non-blacks MDRD (S/P/Bld) [Vol rate/Area] 79 mL/min/{1.73_m2} Normal >60 [facility] Comment on above: Order Comment: 'TROP ' Serial specimen #1, #2 or #3: 1 Result Comment: Non- GFR Calc Performed By: #### L 500.2500, L501.4020, L100.0100 #### [facility] [address] [place], [address] Glucose [Mass/Vol] 121 mg/dL High 74-[address] [facility] Comment on above: Order Comment: 'TROP ' Serial specimen #1, #2 or #3: 1 Result Comment: Fast ing Glucose result from 100 to 125 mg/dL suggests IMPAIRED HOMEOSTASIS per A.D.A. criteria. Performed By: #### L 500.2500, L501.4020, L100.0100 #### [facility] [address] [place], [address] Potassium [Moles/Vol] 3.8 mmol/L Normal 3.5-5.1 [facility] Comment on above: Order Comment: 'TROP ' Serial specimen #1, #2 or #3: 1 Performed By: #### L 500.2500, L501.4020, L100.0100 #### [facility] [address] [place], [address] Sodium [Moles/Vol] 144 mmol/L Normal 136-[address] [facility] Comment on above: Order Comment: 'TROP ' Serial specimen #1, #2 or #3: 1 Performed By: #### L 500.2500, L501.4020, L100.0100 #### [facility] [address] [place], [address] Urea nitrogen [Mass/Vol] 12 mg/dL Normal 7-18 [facility] Comment on above: Order Comment: 'TROP ' Serial specimen #1, #2 or #3: 1 Performed By: #### L 500.2500, L501.4020, L100.0100 #### [facility] [address] [place], [address] CBC W/Diff, Automatedon 10-2 5-2023 Absolute Lymph 2.32 X10 3/uL Normal 0.83-4.51 [facility] Comment on above: Performed By: #### L 500.2500, L501.4020, L100.0100 #### [facility] [address] [place], [address] Absolute Neut 2.3 X10 3/uL Normal 2.0-7.7 [facility] Comment on above: Performed By: #### L 500.2500, L501.4020, L100.0100 #### [facility] [address] [place], [address] Basophils/100 WBC (Bld) 0.6 % Normal 0-1 [facility] Comment on above: Performed By: #### L 500.2500, L501.4020, L100.0100 #### [facility] [address] [place], [address] Eosinophils/100 WBC (Bld) 1.2 % Normal 0-5 [facility] Comment on above: Performed By: #### L 500.2500, L501.4020, L100.0100 #### [facility] [address] [place], [address] Erythrocyte distribution width (RBC) [Ratio] 12.6 % Normal 11.6-14.6 [facility] Comment on above: Performed By: #### L 500.2500, L501.4020, L100.0100 #### [facility] [address] [place], [address] Hematocrit (Bld) [Volume fraction] 43.6 % Normal 37-47 [facility] Comment on above: Performed By: #### L 500.2500, L501.4020, L100.0100 #### [facility] [address] [place], [address] Hemoglobin (Bld) [Mass/Vol] 14.8 g/dL Normal 12.0-15.0 [facility] Comment on above: Performed By: #### L 500.2500, L501.4020, L100.0100 #### [facility] [address] [place], [address] IG% 0.400 Normal 0.0-0.9 [facility] Comment on above: Result Comment: IG% - Immature Granulocytes (promyelocytes, myelocytes and metamyelocytes) > 1% indicates that a LEFT SHIFT is Present. Performed By: #### L 500.2500, L501.4020, L100.0100 #### [facility] [address] [place], [address] Lymphocytes/100 WBC (Bld) 46.2 % High 19-41 [facility] Comment on above: Performed By: #### L 500.2500, L501.4020, L100.0100 #### [facility] [address] [place], [address] MCH (RBC) [Entitic mass] 29.9 pg Normal 27.0-32.0 [facility] Comment on above: Performed By: #### L 500.2500, L501.4020, L100.0100 #### [facility] [address] [place], [address] MCHC (RBC) [Mass/Vol] 33.9 g/dL Normal 32-36 [facility] Comment on above: Performed By: #### L 500.2500, L501.4020, L100.0100 #### [facility] [address] [facility], [address] MCV (RBC) [Entitic vol] 88.1 fL Normal 81-99 [facility] Comment on above: Performed By: #### L 500.2500, L501.4020, L100.0100 #### [facility] [address] [place], [address] Monocytes/100 WBC (Bld) 6.8 % Normal 0-10 [facility] Comment on above: Performed By: #### L 500.2500, L501.4020, L100.0100 #### [facility] [address] [place], [address] Neutrophils/100 WBC (Bld) 44.8 % Low 47-70 [facility] Comment on above: Performed By: #### L 500.2500, L501.4020, L100.0100 #### [facility] [address] [place], [address] Nucleated RBC (Bld) [#/Vol] 0 10*3/uL Normal 0-5 [facility] Comment on above: Performed By: #### L 500.2500, L501.4020, L100.0100 #### [facility] [address] [place], [address] Platelet mean volume (Bld) [Entitic vol] 10.2 fL Normal 6.2-12.0 [facility] Comment on above: Performed By: #### L 500.2500, L501.4020, L100.0100 #### [facility] [address] [place], [address] Platelets (Bld) [#/Vol] 191 10*3/uL Normal 150-450 [facility] Comment on above: Performed By: #### L 500.2500, L501.4020, L100.0100 #### [facility] [address] [place], [address] RBC (Bld) [#/Vol] 4.95 10*6/uL Normal 4.2-5.4 [facility] Comment on above: Performed By: #### L 500.2500, L501.4020, L100.0100 #### [facility] [address] [place], [address] RDW SD 40.9 fl Normal 35.1-43.9 [facility] Comment on above: Performed By: #### L 500.2500, L501.4020, L100.0100 #### [facility] [address] [place], [address] WBC (Bld) [#/Vol] 5.0 10*3/uL Normal 4.4-11.[address] [facility] Comment on above: Performed By: #### L 500.2500, L501.4020, L100.0100 #### [facility] [address] [place], [address] Chest 1 View (Portable)on Chest 1 View (Portable) [facility] Imaging Services [address] [place] [address] Chest 1 View (Portable) MR#: [id number] Acct: [id number] Name: ROSEMARIE VASQUEZ Rep #: [id number] : 1965 F 58 From: Princess Golden PCP: Dr. Elda Branham MD Status: [facility] ER Study: Chest 1 View (Portable) Date of Exam: 05/08/24 Exam# [id number] Ordering [place]: [place] [id number] INDICATION: chest pain EXAMINATION/TECHNIQUE: X-RAY - XR Chest 1 View AP portable. 6:53 AM COMPARISON: Prior study dated: 07/24/2023 FINDINGS: LINES/DEVICES: None. LUNGS: No consolidation. No pneumothorax. MEDIASTINUM: Unremarkable. CARDIAC SILHOUETTE: Not enlarged. BONES AND SOFT TISSUES: No acute abnormalities. RAD/Chest 1 View (Portable) IMPRESSION: No evidence of active intrathoracic disease. Electronically Signed: Princess Wilson MD at 7:39 EDT Reading Location ID and State: [facility] / [place] Tel , Service support , CC: Dr. Desmond Gamez DO; Dr. Elda Branham MD Woodwork Teacher: Signed Normal [facility] Emergency Department Summary on 05-08-2024 Emergency Department Summary [facility] Medical Records Department [address] [place] [id number] Emergency Department Summary 05/08/24 MR#: [id number] Acct: [id number] Name: ROSEMARIE VASQUEZ Rep #: [id number] : 1965 58 From: Desmond Gamez DO PCP: Dr. Elda Branham MD Status:ADM IN Location: [place] [address] HPI History of Present Illness Chief Complaint: Palpitations Informant: patient Onset/Context/Timing Onset: Yesterday Activity at onset: sudden Timing: Continuous Quality: Positive for - Worsened By: Nothing Relieved By: Nothing Associated Symptoms: Positive for Palpitations; Negative for Nausea, Vomiting, Diaphoresis, Dyspnea, Cough, Fever, Lightheadedness or Acid Reflux Narrative CVD Risk Factors: Positive for Hypercholesterolemia; Negative for Hypertension, Diabetes, Family History 1' PE Risk Factors: Negative for Recent Travel/Surgery, Recent Immobilization, Prior DVT or PE, Cancer or OCP + Smoking + >/=35 PFSH PFSH Medical History Hyperlipidemia Fatigue Familial hypercholesterolemia due to heterozygous low density lipoprotein (LDL) receptor mutation Osteoarthritis Tachycardia Vitamin D deficiency Atrophic vaginitis Morbid obesity Hypothyroid Atrial fibrillation Syncope Home Medications ???Medication ???Instructions ???Recorded ???Last Taken ???Type thyroid (pork) 60 mg tablet 60 mg PO DAILY THYROID 07/24/23 Unknown History ([place] Thyroid) metoprolol succinate 25 mg 25 mg PO DAILY BLOOD PRESSURE #60 07/25/23 Unknown Rx tablet,extended release 24 hr tabs cholecalciferol (vitamin D3) 25 25 mcg PO DAILY 08/14/23 Unknown History mcg (1,000 unit) capsule tirzepatide 10 mg/0.5 mL 40 mg subcut QWEEK 09/11/23 05/04/24 History subcutaneous pen injector (Mounjaro) Allergy/AdvReac Type Severity Reaction Status Date / Time No Known Allergies Allergy Verified 05/08/24 06:27 Family History Brother Heart failure Mother Hepatitis a without hepatic coma Brother Afib Sister Afib Father Cancer Surgical History Hx of abdominoplasty Hx of thyroidectomy Social History Smoking Status: Never smoker ROS ROS ED Constitutional Constitutional ED: Denies chills or fever(s) Eyes Eyes: Denies blurry vision or change in vision ENT ENT ED: Denies rhinorrhea or sore throat Cardiovascular Cardiovascular: Reports palpitations; Denies chest pain Respiratory/Chest Respiratory/Chest: Denies cough or dyspnea Gastrointestinal Gastrointestinal: Denies nausea or vomiting Genitourinary Genitourinary ED: Denies dysuria or hematuria Musculoskeletal Musculoskeletal: Denies back pain or neck pain Integumentary Denies abscess or rash Neurologic Neurologic: Denies headache(s) or weakness Allergic/Immunologic Allergic/Immunologic ED: Denies mouth swelling or urticaria EXAM Physical Exam Const Vital Signs: 05/08/24 06:28 05/08/24 06:33 05/08/24 06:54 Temperature 98.1 F Temperature Source Oral Pulse Rate 174 H Respiratory Rate 20 H Respiratory Effort Normal Non-Labored Respiratory Pattern Normal Blood Pressure 123/81 H Blood Pressure Mean 95 Pulse Ox 95 98 Oxygen Delivery Method Room Air Room Air Positive well nourished and well developed General Appearance ED: well developed and NAD HEENT Reports moist mucous membranes Neck supple and no JVD Resp normal respiratory effort and clear to auscultation bilaterally Cardio Rate: tachycardic Rhythm: abnormal rhythm irregularly irregular GI soft to palpation, non-tender and non-distended Extremity normal to inspection General Extremety ED: Negative for edema or tenderness General Extremity: Negative for edema Neuro oriented x3, CN's II-XII intact bilaterally and no sensory deficits noted Sensorium / Orientation: awake and alert Motor Exam: strength 5/5 throughout Psych mental status grossly normal Physical Exam Const Vital Signs: 05/08/24 06:28 05/08/24 06:33 05/08/24 06:54 Temperature 98.1 F Temperature Source Oral Pulse Rate 174 H Respiratory Rate 20 H Respiratory Effort Normal Non-Labored Respiratory Pattern Normal Blood Pressure 123/81 H Blood Pressure Mean 95 Pulse Ox 95 98 Oxygen Delivery Method Room Air Room Air MDM MDM MDM Narrative Medical decision making narrative: Differential diagnosis includes cardiac dysrhythmia, cardiac ischemia, electrolyte abnormality, pneumonia, and pneumothorax. EKG will be obtained to assess for cardiac dysrhythmia and cardiac ischemia. Chest x-ra (more content not included)... Normal [facility] H AND P Exam - [facility] 05-08-2024 H&P Exam - Hospitalist [facility] Medical Records Department [address] [place] [address] H P Exam - Hospitalist 05/08/24 1521 MR#: [id number] Acct: [id number] Name: ROSEMARIE VASQUEZ Rep #: [id number] : 1965 58 From: Desmond Miranda DO PCP: Dr. Elda Branham MD Status:ADM IN [id number] - General General Date of Admission: 05/08/24 Date of Service: 05/08/24 Chief Complaint: palpitations. HPI Narrative ROSEMARIE VASQUEZ, is a 58 F who presents with palpitations. Symptoms began around 2200 on the . Patient has had a history of paroxysmal atrial fibrillation before and had been on medications but was subsequently discontinued. Patient started experiencing palpitations and persisted and presented to the emergency room and was found to be in atrial fibrillation with RVR. She received a bolus of IV diltiazem as well as was started on drip. Heart rate has subsequently improved but still remains in atrial fibrillation. 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 Osteoarthritis Tachycardia Vitamin D deficiency Atrophic vaginitis Morbid obesity Hypothyroid Atrial fibrillation Syncope Home Medications ???Medication ???Instructions ???Recorded ???Last Taken ???Type thyroid (pork) 60 mg tablet 60 mg PO DAILY THYROID 07/24/23 Unknown History ([place] Thyroid) metoprolol succinate 25 mg 25 mg PO DAILY BLOOD PRESSURE #60 07/25/23 Unknown Rx tablet,extended release 24 hr tabs cholecalciferol (vitamin D3) 25 25 mcg PO DAILY supplement 08/14/23 Unknown History mcg (1,000 unit) capsule tirzepatide 10 mg/0.5 mL 40 mg subcut QWEEK 09/11/23 05/04/24 History subcutaneous pen injector (Zachuncarol) Allergy/AdvReac Type Severity Reaction Status Date / Time No Known Allergies Allergy Verified 05/08/24 06:27 Family History Brother Heart failure Mother Hepatitis a without hepatic coma Brother Afib Sister Afib Father Cancer Surgical History Hx of abdominoplasty Hx of thyroidectomy Social History Smoking Status: Never smoker ROS ROS Narrative All review of systems were negative except as mentioned above in the history of present illness and the other review of systems. Vital Signs Vital Signs Vital Signs: 05/08/24 06:28 05/08/24 06:33 05/08/24 06:54 Temperature 36.7 C Temperature Source Oral Pulse Rate 174 H Pulse Strength Respiratory Rate 20 H Respiratory Effort Normal Non-Labored Respiratory Depth Respiratory Pattern Normal Blood Pressure 123/81 H Blood Pressure Mean 95 Blood Pressure Source Blood Pressure Position Blood Pressure Location Pulse Ox 95 98 Oxygen Delivery Method Room Air Room Air 05/08/24 08:11 05/08/24 08:27 05/08/24 08:31 Temperature 36.8 C 36.7 C Temperature Source Oral Pulse Rate 145 H 133 H 133 H Pulse Strength Respiratory Rate 19 H 16 17 Respiratory Effort Respiratory Depth Respiratory Pattern Blood Pressure 107/81 H 107/81 H 107/81 H Blood Pressure Mean 89 89 89 Blood Pressure Source Blood Pressure Position Sitting Blood Pressure Location Left Arm Pulse Ox 97 96 96 Oxygen Delivery Method Room Air 05/08/24 08:46 05/08/24 08:56 05/08/24 09:11 Temperature 36.8 C Temperature Source Oral Pulse Rate 133 H 138 H Pulse Strength Respiratory Rate 18 17 Respiratory Effort Respiratory Depth Respiratory Pattern Blood Pressure 106/92 H 106/81 H Blood Pressure Mean 96 89 Blood Pressure Source Monitor Monitor Blood Pressure Position Semi-Fowlers Semi-Fowlers Blood Pressure Location Left Arm Left Arm Pulse Ox 96 97 Oxygen Delivery Method Room Air Room Air Room Air 05/08/24 09:15 05/08/24 09:18 05/08/24 09:30 Temperature Temperature Source Pulse Rate 138 H 107 H Pulse Strength Normal (2+) Respiratory Rate 18 17 Respiratory Effort Respiratory Depth Respiratory Pattern Blood Pressure 108/89 H 82/69 L Blood Pressure Mean 95 73 Blood Pressure Source Monitor Monitor Blood Pressure Position Semi-Fowlers Semi-Fowlers Blood Pressure Location Left Arm Left Arm Pulse Ox 97 96 Oxygen Delivery Method Room Air Room Air 05/08/24 09:45 05/08/24 10:00 05/08/24 10:00 Temperature Temperature Source Pulse Rate 115 H 113 H Pulse Strength Respiratory Rate 16 Respiratory Effort Normal Non-Labored Respiratory Depth Normal Respiratory Pa (more content not included)... Normal [facility] L501.4020on 05-08-2024 TROPONIN-I HS 18 pg/mL Normal 3.0-54.0 [facility] Comment on above: Order Comment: Comme nts: SPECIMEN #3 'TROP' Serial specimen #1, #2 or #3: 3 Result Comment: Plea se Note: New Test Units and Gender Specific Reference Ranges. For more information see Policy Stat Procedure [place] High Sensitivity Troponin (TNIH) and attachments. Performed By: #### L 501.4020 #### [facility] [address] [place], [place], [id number] TROPONIN-I HS 18 pg/mL Normal 3.0-54.0 [facility] Comment on above: Order Comment: Comme nts: SPECIMEN #2 'TROP' Serial specimen #1, #2 or #3: 2 Result Comment: Plea se Note: New Test Units and Gender Specific Reference Ranges. For more information see Policy Stat Procedure [place] High Sensitivity Troponin (TNIH) and attachments. Performed By: #### L 501.4020 #### [facility] [address] [place], [address] TROPONIN-I HS 11 pg/mL Normal 3.0-54.0 [facility] Comment on above: Order Comment: 'TROP ' Serial specimen #1, #2 or #3: 1 Result Comment: Plea se Note: New Test Units and Gender Specific Reference Ranges. For more information see Policy Stat Procedure [place] High Sensitivity Troponin (TNIH) and attachments. Performed By: #### L 500.2500, L501.4020, L100.0100 #### [facility] [address] [place], [address] CBC W/Diff, Automatedon 02-12-2023 Absolute Lymph 2.42 X10 3/uL Normal 0.83-4.51 [facility] Comment on above: Performed By: #### L 500.4050, L501.9520, L100.0100 #### [facility] [address] [place], [address] Absolute Neut 2.5 X10 3/uL Normal 2.0-7.7 [facility] Comment on above: Performed By: #### L 500.4050, L501.9520, L100.0100 #### [facility] [address] [place], [address] Basophils/100 WBC (Bld) 0.9 % Normal 0-1 [facility] Comment on above: Performed By: #### L 500.4050, L501.9520, L100.0100 #### [facility] [address] [place], [address] Eosinophils/100 WBC (Bld) 1.4 % Normal 0-5 [facility] Comment on above: Performed By: #### L 500.4050, L501.9520, L100.0100 #### [facility] [address] [place], [address] Erythrocyte distribution width (RBC) [Ratio] 12.8 % Normal 11.6-14.6 [facility] Comment on above: Performed By: #### L 500.4050, L501.9520, L100.0100 #### [facility] [address] [place], [address] Hematocrit (Bld) [Volume fraction] 44.0 % Normal 37-47 [facility] Comment on above: Performed By: #### L 500.4050, [id number], L100.0100 #### [facility] [address] [place], [address] Hemoglobin (Bld) [Mass/Vol] 14.4 g/dL Normal 12.0-15.0 [facility] Comment on above: Performed By: #### L 500.4050, L501.9520, L100.0100 #### [facility] [address] [place], [address] IG% 0.200 Normal 0.0-0.9 [facility] Comment on above: Result Comment: IG% - Immature Granulocytes (promyelocytes, myelocytes and metamyelocytes) > 1% indicates that a LEFT SHIFT is Present. Performed By: #### L 500.4050, L501.9520, L100.0100 #### [facility] [address] [place], [address] Lymphocytes/100 WBC (Bld) 43.8 % High 19-41 [facility] Comment on above: Performed By: #### L 500.4050, [id number], L100.0100 #### [facility] [address] [place], [address] MCH (RBC) [Entitic mass] 28.9 pg Normal 27.0-32.0 [facility] Comment on above: Performed By: #### L 500.4050, [id number], L100.0100 #### [facility] [address] [place], [address] MCHC (RBC) [Mass/Vol] 32.7 g/dL Normal 32-36 [facility] Comment on above: Performed By: #### L 500.4050, [id number], L100.0100 #### [facility] [address] [place], [address] MCV (RBC) [Entitic vol] 88.4 fL Normal 81-99 [facility] Comment on above: Performed By: #### L 500.4050, [id number], L100.0100 #### [facility] [address] [place], [address] Monocytes/100 WBC (Bld) 8.0 % Normal 0-10 [facility] Comment on above: Performed By: #### L 500.4050, [id number], L100.0100 #### [facility] [address] [place], [address] Neutrophils/100 WBC (Bld) 45.7 % Low 47-70 [facility] Comment on above: Performed By: #### L 500.4050, [id number], L100.0100 #### [facility] [address] [place], [address] Nucleated RBC (Bld) [#/Vol] 0 10*3/uL Normal 0-5 [facility] Comment on above: Performed By: #### L 500.4050, L501.9520, L100.0100 #### [facility] [address] [place], [address] Platelet mean volume (Bld) [Entitic vol] 10.0 fL Normal 6.2-12.0 [facility] Comment on above: Performed By: #### L 500.4050, [id number], L100.0100 #### [facility] [address] [place], [address] Platelets (Bld) [#/Vol] 199 10*3/uL Normal 150-450 [facility] Comment on above: Performed By: #### L 500.4050, [id number], L100.0100 #### [facility] [address] [place], [address] RBC (Bld) [#/Vol] 4.98 10*6/uL Normal 4.2-5.4 [facility] Comment on above: Performed By: #### L 500.4050, [id number], L100.0100 #### [facility] [address] [place], [address] RDW SD 41.4 fl Normal 35.1-43.9 [facility] Comment on above: Performed By: #### L 500.4050, [id number], L100.0100 #### [facility] [address] [place], [address] WBC (Bld) [#/Vol] 5.5 10*3/uL Normal 4.4-11.[address] [facility] Comment on above: Performed By: #### L 500.4050, [id number], L100.0100 #### [facility] [address] [place], [address] Comprehensive Metabolic Prof nhjessie 02-25-2024 Albumin [Mass/Vol] 4.1 g/dL Normal 3.2-5.[address] [facility] Comment on above: Performed By: #### L 500.4050, [id number], L100.0100 #### [facility] [address] [place], [address] Albumin/Globulin [Mass ratio] 1.2 {ratio} Normal 0.9-2.4 [facility] Comment on above: Performed By: #### L 500.4050, [id number], L100.0100 #### [facility] [address] [place], [address] ALK P 76 U/L Normal 45-117 [facility] Comment on above: Performed By: #### L 500.4050, [id number], L100.0100 #### [facility] [address] [place], [address] ALT [Catalytic activity/Vol] 22 U/L Normal 13-56 [facility] Comment on above: Performed By: #### L 500.4050, [id number], L100.0100 #### [facility] [address] [place], [address] AST [Catalytic activity/Vol] 19 U/L Normal 15-37 [facility] Comment on above: Performed By: #### L 500.4050, [id number], L100.0100 #### [facility] [address] [place], [address] Bilirubin [Mass/Vol] 0.50 mg/dL Normal 0.20-1.[address] [facility] Comment on above: Result Comment: For patients on eltrombopag therapy, use of Dimension [place] TBIL is not recommended. Performed By: #### L 500.4050, [id number], L100.0100 #### [facility] [address] [place], [address] BUN/CRE 25.4 RATIO High 10-20 [facility] Comment on above: Performed By: #### L 500.4050, [id number], L100.0100 #### [facility] [address] [place], [address] CA,Total 9.1 mg/dL Normal 8.5-10.1 [facility] Comment on above: Performed By: #### L 500.4050, [id number], L100.0100 #### [facility] [address] [place], [address] Chloride [Moles/Vol] 109 mmol/L High 98-[address] [facility] Comment on above: Performed By: #### L 500.4050, [id number], L100.0100 #### [facility] [address] [place], [address] CO2 [Moles/Vol] 27.0 mmol/L Normal 21.0-32.0 [facility] Comment on above: Performed By: #### L 500.4050, [id number], L100.0100 #### [facility] [address] [place], [address] Creatinine [Mass/Vol] 0.79 mg/dL Normal 0.55-1.02 [facility] Comment on above: Result Comment: The validity of the calculated GFR GFRAA in patients over 70 years has not been determined. Clinical correlation is essential. Performed By: #### L 500.4050, L501.9520, L100.0100 #### [facility] [address] [place], [address] EST GFR - AA 96 mL/min Normal >60 [facility] Comment on above: Result Comment: Afri can [place] GFR Calc Performed By: #### L 500.4050, [id number], L100.0100 #### [facility] [address] [place], [address] GAP 6 Normal 5-15 [facility] Comment on above: Performed By: #### L 500.4050, [id number], L100.0100 #### [facility] [address] [place], [address] GFR/1.73 sq M.predicted among non-blacks MDRD (S/P/Bld) [Vol rate/Area] 80 mL/min/{1.73_m2} Normal >60 [facility] Comment on above: Result Comment: Non- GFR Calc Performed By: #### L 500.4050, L501.9520, L100.0100 #### [facility] [address] [place], [address] Globulin (S) [Mass/Vol] 3.5 g/dL Normal 2.2-4.2 [facility] Comment on above: Performed By: #### L 500.4050, L501.9520, L100.0100 #### [facility] [address] [place], [address] Glucose [Mass/Vol] 83 mg/dL Normal 74-[address] [facility] Comment on above: Performed By: #### L 500.4050, [id number], L100.0100 #### [facility] [address] [place], [address] Potassium [Moles/Vol] 4.2 mmol/L Normal 3.5-5.1 [facility] Comment on above: Performed By: #### L 500.4050, [id number], L100.0100 #### [facility] [address] [place], [address] Sodium [Moles/Vol] 142 mmol/L Normal 136-[address] [facility] Comment on above: Performed By: #### L 500.4050, [id number], L100.0100 #### [facility] [address] [place], [address] T PROT 7.6 g/dL Normal 6.4-8.2 [facility] Comment on above: Performed By: #### L 500.4050, [id number], L100.0100 #### [facility] [address] [place], [address] Urea nitrogen [Mass/Vol] 20 mg/dL High 7-18 [facility] Comment on above: Performed By: #### L 500.4050, [id number], L100.0100 #### [facility] [address] [place], [address] Thyroid Stim Hormone (TSH)on 02-25-2024 TSH 0.408 uIU/mL Normal 0.358-3.740 [facility] Comment on above: Performed By: #### L 500.4050, L501.9520, L100.0100 #### [facility] [address] [place], [address] Absolute lymphocyte countOrd ered By: Elda Branham on 09-03-2023 Lymphocytes Auto (Unsp spec) [#/Vol] 2.31 10*3/uL 0.83-4.51 [facility] Automated lymphocyte count a s percentage of total leukocytesOrdered By: Elda Branham on 09-03-2023 Lymphocytes/100 WBC Auto (Unsp spec) 35.4 % 19-41 [facility] Basophil percentageOrdered B y: Elda Branham on 09-03-2023 Basophils/100 WBC (Bld) 0.8 % 0-1 [facility] Bilirubin [Mass/Vol] 0.50 mg/dL 0.20-1.[address] [facility] Comment on above: For patients on eltr ombopag therapy, use of Dimension [place] TBIL is not recommended. Chloride [Moles/Vol] 110 mmol/L 98-[address] [facility] Eosinophils/100 WBC (Bld) 0.9 % 0-5 [facility] Glucose [Mass/Vol] 80 mg/dL 74-[address] [facility] Hemoglobin (Bld) [Mass/Vol] 14.0 g/dL 12.0-15.0 [facility] Monocytes/100 WBC (Bld) 6.3 % 0-10 [facility] Neutrophils (Bld) [#/Vol] 3.7 10*3/uL 2.0-7.7 [facility] Neutrophils/100 WBC (Bld) 56.3 % 47-70 [facility] Potassium [Moles/Vol] 3.7 mmol/L 3.5-5.1 [facility] Protein [Mass/Vol] 7.3 g/dL 6.4-8.[address] [facility] Sodium [Moles/Vol] 143 mmol/L 136-[address] [facility] WBC (Bld) [#/Vol] 6.5 10*3/uL 4.4-11.[address] [facility] Determination of erythrocyte mean corpuscular volume (MCV)Ordered By: Elda Branham on 09-03-2023 MCV (RBC) [Entitic vol] 87.3 fL 81-99 [facility] Erythrocyte distribution wid th ratioOrdered By: Elda Branham on 09-03-2023 Erythrocyte distribution width (RBC) [Ratio] 12.9 % 11.6-14.6 [facility] Erythrocyte distribution wid th standard deviationOrdered By: Elda Branham on 09-03-2023 Erythrocyte distribution width (RBC) [Entitic vol] 40.5 fL 35.1-43.9 [facility] Hematocrit Auto (Bld) [Volum e fraction]Ordered By: Elda Branham 09-03-2023 Hematocrit (Bld) [Volume fraction] 42.5 % 37-47 [facility] Immature granulocytes/100 WB C Auto (Bld)Ordered By: Elda Branham 09-03-2023 Immature granulocytes/100 WBC (Bld) 0.300 % 0.0-0.9 [facility] Comment on above: IG% - Immature Granu locytes (promyelocytes, myelocytes and metamyelocytes) > 1% indicates that a LEFT SHIFT is Present. Laboratory - Chemistry and C hemistry - challengeOrdered By: Elda Branham on 09-03-2023 Albumin/Globulin [Mass ratio] 1.3 {ratio} 0.9-2.4 [facility] ALP [Catalytic activity/Vol] 77 U/L 45-117 [facility] ALT [Catalytic activity/Vol] 16 U/L 13-56 [facility] CO2 [Moles/Vol] 26.0 mmol/L 21.0-32.0 [facility] Globulin (S) [Mass/Vol] 3.2 g/dL 2.2-4.2 [facility] Urea nitrogen/Creatinine [Mass ratio] 17.1 mg/mg 10-20 [facility] - Hematology and Cell countsOrdered By: Elda Branham on 09-03-2023 MCH (RBC) [Entitic mass] 28.7 pg 27.0-32.0 [facility] MCHC (RBC) [Mass/Vol] 32.9 g/dL 32-36 [facility] Nucleated RBC/100 WBC (Bld) [Ratio] 0 % 0-5 [facility] Platelet mean volume (Bld) [Entitic vol] 10.2 fL 6.2-12.0 [facility] Platelets (Bld) [#/Vol] 188 10*3/uL 150-450 [facility] No Panel InformationOrdered By: Elda Branham on 09-03-2023 Estimated GFR (MDRD) Amer 85 mL/min >60 [facility] Comment on above: GFR Calc Estimated GFR (MDRD) Non-Af Amer 71 mL/min >60 [facility] Comment on above: Non- GFR Calc RBC Auto (Bld) [#/Vol]Ordere d By: Elda Branham on 09-03-2023 RBC (Bld) [#/Vol] 4.87 10*6/uL 4.2-5.4 [facility] Serum or plasma calcium vinicius urement (mass/volume)Ordered By: Elda Branham on 09-03-2023 Calcium [Mass/Vol] 9.1 mg/dL 8.5-10.[address] [facility] Serum or plasma creatinine m easurement (mass/volume)Ordered By: Elda Branham on 09-03-2023 Creatinine [Mass/Vol] 0.88 mg/dL 0.55-1.02 [facility] Comment on above: The validity of the calculated GFR & GFRAA in patients over 70 years has not been determined. Clinical correlation is essential. Serum or plasma thyroid stim ulating hormone (TSH) measurement (units/volume)Ordered By: Elda Branham on 09-03-2023 TSH Qn 0.43 uIU/mL 0.358-3.74 [facility] Serum or plasma urea nitroge n measurement (mass/volume)Ordered By: Elda Branham on 09-03-2023 Urea nitrogen [Mass/Vol] 15 mg/dL 7-18 [facility] Thin prep Papanicolaou smear with manual screeningOrdered By: Elda Branham on 09-03-2023 Thin prep Papanicolaou smear with manual screening 4.1 g/dL 3.2-5.0 [facility] Thin prep Papanicolaou smear with manual screening 15 U/L 15-37 [facility] Thin prep Papanicolaou smear with manual screening 7 5-15 [facility] Absolute lymphocyte countOrd ered By: Quinn Arnold on 07-25-2023 Lymphocytes Auto (Unsp spec) [#/Vol] 1.69 10*3/uL 0.83-4.51 [facility] Basophil percentageOrdered B y: Quinn Arnold on 07-25-2023 Basophil percentage 3.3 mg/dL 2.5-4.9 [facility] Basophils/100 WBC (Bld) 0.7 % 0-1 [facility] Chloride [Moles/Vol] 117 mmol/L 98-[address] [facility] Eosinophils/100 WBC (Bld) 1.4 % 0-5 [facility] Glucose [Mass/Vol] 91 mg/dL 74-[address] [facility] Neutrophils (Bld) [#/Vol] 3.6 10*3/uL 2.0-7.7 [facility] Neutrophils/100 WBC (Bld) 61.4 % 47-70 [facility] Potassium [Moles/Vol] 3.8 mmol/L 3.5-5.1 [facility] Sodium [Moles/Vol] 146 mmol/L 136-[address] [facility] WBC (Bld) [#/Vol] 5.9 10*3/uL 4.4-11.[address] [facility] Blood erythrocytes count (nu mber/volume)Ordered By: uQinn Arnold on 07-25-2023 RBC (Bld) [#/Vol] 4.22 10*6/uL 4.2-5.4 [facility] Blood hemoglobin measurement (mass/volume)Ordered By: Quinn Arnold on 07-25-2023 Hemoglobin (Bld) [Mass/Vol] 12.3 g/dL 12.0-15.0 [facility] Blood lymphocytes/100 leukoc ytesOrdered By: Quinn Arnold on 07-25-2023 Lymphocytes/100 WBC (Bld) 28.5 % 19-41 [facility] Blood monocytes/100 leukocyt esOrdered By: Quinn Arnold on 07-25-2023 Monocytes/100 WBC (Bld) 7.8 % 0-10 [facility] Blood platelet mean volumeOr dered By: Quinn Arnold on 07-25-2023 Platelet mean volume (Bld) [Entitic vol] 10.7 fL 6.2-12.0 [facility] Determination of erythrocyte mean corpuscular volume (MCV)Ordered By: Quinn Arnold on 07-25-2023 MCV (RBC) [Entitic vol] 88.4 fL 81-99 [facility] Hematocrit Auto (Bld) [Volum e fraction]Ordered By: Quinn Arnold on 07-25-2023 Hematocrit (Bld) [Volume fraction] 37.3 % 37-47 [facility] - Chemistry and C hemistry - challengeOrdered By: Quinn Arnold on 07-25-2023 CO2 [Moles/Vol] 22.0 mmol/L 21.0-32.0 [facility] Magnesium [Mass/Vol] 2.1 mg/dL 1.6-2.[address] [facility] Urea nitrogen/Creatinine [Mass ratio] 15.8 mg/mg 10-20 [facility] - Hematology and Cell countsOrdered By: Quinn Arnold on 07-25-2023 Erythrocyte distribution width (RBC) [Entitic vol] 42.5 fL 35.1-43.9 [facility] Erythrocyte distribution width (RBC) [Ratio] 13.2 % 11.6-14.6 [facility] Immature granulocytes/100 WBC (Bld) 0.200 % 0.0-0.9 [facility] Comment on above: IG% - Immature Granu locytes (promyelocytes, myelocytes and metamyelocytes) > 1% indicates that a LEFT SHIFT is Present. MCH (RBC) [Entitic mass] 29.1 pg 27.0-32.0 [facility] Nucleated RBC/100 WBC (Bld) [Ratio] 0 [facility] [Mass/Vol]Or dered By: Quinn Arnold on 07-25-2023 MCHC (RBC) [Mass/Vol] 33.0 g/dL 32-36 [facility] No Panel InformationOrdered By: Quinn Arnold on 07-25-2023 Estimated Creatinine Clearance Calc 81.93 ml/min [facility] Estimated GFR (MDRD) Amer 92 mL/min >60 [facility] Comment on above: GFR Calc Estimated GFR (MDRD) Non-Af Amer 76 mL/min >60 [facility] Comment on above: Non- GFR Calc Platelets bldOrdered By: Oscar Arnold on 07-25-2023 Platelets (Bld) [#/Vol] 190 10*3/uL 150-450 [facility] Serum or plasma calcium vinicius urement (mass/volume)Ordered By: Quinn Arnold on 07-25-2023 Calcium [Mass/Vol] 8.7 mg/dL 8.5-10.[address] [facility] Serum or plasma creatinine m easurement (mass/volume)Ordered By: Quinn Arnold on 07-25-2023 Creatinine [Mass/Vol] 0.82 mg/dL 0.55-1.02 [facility] Comment on above: The validity of the calculated GFR & GFRAA in patients over 70 years has not been determined. Clinical correlation is essential. Serum or plasma urea nitroge n measurement (mass/volume)Ordered By: Quinn Arnold on 07-25-2023 Urea nitrogen [Mass/Vol] 13 mg/dL 7-18 [facility] Thin prep Papanicolaou smear with manual screeningOrdered By: Quinn Arnold on 07-25-2023 Thin prep Papanicolaou smear with manual screening 7 5-15 [facility] INR in Blood by Coagulation assayOrdered By: Jose Mraia Smith on 07-24-2023 INR Coag (Bld) [Relative time] 1.0 {INR} [facility] - Chemistry and C hemistry - challengeOrdered By: Quinn Arnold on 07-24-2023 Natriuretic peptide B (Bld) [Mass/Vol] 442.7 pg/mL 0-100 [facility] - CoagulationOrde red By: Jose Maria Smith on 07-24-2023 aPTT Coag (Bld) [Time] 27.1 s 24.1-36.2 [facility] PT Coag (PPP) [Time] 13.3 s 11.7-14.[address] [facility] No Panel InformationOrdered By: Quinn Arnold on 07-24-2023 Troponin I High Sensitivity 5 pg/mL 3.0-54.0 [facility] Comment on above: Please Note: New Kati t Units and Gender Specific Reference Ranges. For more information see Policy Stat Procedure [place] High Sensitivity Troponin (TNIH) and attachments. D-Dimer Quantitative (PE/DVT) 0.69 FEU/ug/m 0.27-0.49 [facility] Comment on above: D-Dimer ELEVATED (>0 .49): Additional studies and clinicalassessments are indicated to conclude diagnosis of:Deep Vein Thrombosis (DVT) or Pulmonary Embolism (PE) No Panel InformationOrdered By: Jose Maria Smith on 07-24-2023 Thyroid Stimulating Hormone (TSH) 0.92 uIU/mL 0.358-3.74 [facility] Absolute lymphocyte countOrd ered By: Elda Branham on 02-21-2023 Lymphocytes Auto (Unsp spec) [#/Vol] 2.02 10*3/uL 0.83-4.51 [facility] Basophil percentageOrdered B y: Elda Branham on 02-21-2023 Basophils/100 WBC (Bld) 0.8 % 0-1 [facility] Bilirubin [Mass/Vol] 0.40 mg/dL 0.20-1.[address] [facility] Comment on above: For patients on eltr ombopag therapy, use of Dimension [place] TBIL is not recommended. Chloride [Moles/Vol] 111 mmol/L 98-[address] [facility] Eosinophils/100 WBC (Bld) 1.3 % 0-5 [facility] Glucose [Mass/Vol] 108 mg/dL 74-[address] [facility] Comment on above: Fasting Glucose resu lt from 100 to 125 mg/dL suggests IMPAIRED HOMEOSTASIS per A.D.A. criteria. Neutrophils (Bld) [#/Vol] 2.3 10*3/uL 2.0-7.7 [facility] Neutrophils/100 WBC (Bld) 47.7 % 47-70 [facility] Potassium [Moles/Vol] 3.8 mmol/L 3.5-5.1 [facility] Protein [Mass/Vol] 7.2 g/dL 6.4-8.[address] [facility] Sodium [Moles/Vol] 143 mmol/L 136-[address] [facility] WBC (Bld) [#/Vol] 4.7 10*3/uL 4.4-11.[address] [facility] Blood erythrocytes count (nu mber/volume)Ordered By: Elda Branham on 02-21-2023 RBC (Bld) [#/Vol] 4.65 10*6/uL 4.2-5.4 [facility] Blood hemoglobin measurement (mass/volume)Ordered By: Elda Branham on 02-21-2023 Hemoglobin (Bld) [Mass/Vol] 13.8 g/dL 12.0-15.0 [facility] Blood lymphocytes/100 leukoc ytesOrdered By: Elda Branham on 02-21-2023 Lymphocytes/100 WBC (Bld) 42.8 % 19-41 [facility] Blood monocytes/100 leukocyt esOrdered By: Elda Branham on 02-21-2023 Monocytes/100 WBC (Bld) 7.2 % 0-10 [facility] Blood platelet mean volumeOr dered By: Elda Branham on 02-21-2023 Platelet mean volume (Bld) [Entitic vol] 10.2 fL 6.2-12.0 [facility] Determination of erythrocyte mean corpuscular volume (MCV)Ordered By: Elda Branham on 02-21-2023 MCV (RBC) [Entitic vol] 90.1 fL 81-99 [facility] Hematocrit Auto (Bld) [Volum e fraction]Ordered By: Elda Branham on 02-21-2023 Hematocrit (Bld) [Volume fraction] 41.9 % 37-47 [facility] - Chemistry and C hemistry - challengeOrdered By: Elda Branham on 02-21-2023 ALP [Catalytic activity/Vol] 70 U/L 45-117 [facility] ALT [Catalytic activity/Vol] 21 U/L 13-56 [facility] CO2 [Moles/Vol] 25.0 mmol/L 21.0-32.0 [facility] Globulin (S) [Mass/Vol] 3.3 g/dL 2.2-4.2 [facility] Urea nitrogen/Creatinine [Mass ratio] 18.8 mg/mg 10-20 [facility] - Hematology and Cell countsOrdered By: Elda Branham on 02-21-2023 Erythrocyte distribution width (RBC) [Entitic vol] 41.3 fL 35.1-43.9 [facility] Erythrocyte distribution width (RBC) [Ratio] 12.6 % 11.6-14.6 [facility] Immature granulocytes/100 WBC (Bld) 0.200 % 0.0-0.9 [facility] Comment on above: IG% - Immature Granu locytes (promyelocytes, myelocytes and metamyelocytes) > 1% indicates that a LEFT SHIFT is Present. MCH (RBC) [Entitic mass] 29.7 pg 27.0-32.0 [facility] Nucleated RBC/100 WBC (Bld) [Ratio] 0 % 0-5 [facility] MCHC Auto (RBC) [Mass/Vol]Or dered By: Elda Branham on 02-21-2023 MCHC (RBC) [Mass/Vol] 32.9 g/dL 32-36 [facility] No Panel InformationOrdered By: Elda Branham on 02-21-2023 Estimated GFR (MDRD) Amer 95 mL/min >60 [facility] Comment on above: GFR Calc Estimated GFR (MDRD) Non-Af Amer 79 mL/min >60 [facility] Comment on above: Non- GFR Calc Thyroid Stimulating Hormone (TSH) 0.33 uIU/mL 0.358-3.74 [facility] Platelets bldOrdered By: Elda Branham on 02-21-2023 Platelets (Bld) [#/Vol] 189 10*3/uL 150-450 [facility] Serum or plasma albumin vinicius urement (mass/volume)Ordered By: Elda Branham on 02-21-2023 Albumin [Mass/Vol] 3.9 g/dL 3.2-5.[address] [facility] Serum or plasma albumin/glob ulin mass ratioOrdered By: Elda Branham on 02-21-2023 Albumin/Globulin [Mass ratio] 1.2 {ratio} 0.9-2.4 [facility] Serum or plasma calcium vinicius urement (mass/volume)Ordered By: Elda Branham on 02-21-2023 Calcium [Mass/Vol] 8.9 mg/dL 8.5-10.[address] [facility] Serum or plasma creatinine m easurement (mass/volume)Ordered By: Elda Branham on 02-21-2023 Creatinine [Mass/Vol] 0.80 mg/dL 0.55-1.02 [facility] Comment on above: The validity of the calculated GFR & GFRAA in patients over 70 years has not been determined. Clinical correlation is essential. Serum or plasma urea nitroge n measurement (mass/volume)Ordered By: Elda Branham on 02-21-2023 Urea nitrogen [Mass/Vol] 15 mg/dL 7-18 [facility] Thin prep Papanicolaou smear with manual screeningOrdered By: Elda Branham on 02-21-2023 Thin prep Papanicolaou smear with manual screening 18 U/L 15-37 [facility] Thin prep Papanicolaou smear with manual screening 7 5-15 [facility] US THYROIDon 02-21-2023 THYROID [place] [id number] Patient: ROSEMARIE VASQUEZ Phone#: : 1965 Age: 57 Gender: F Pt. Type: Out Account: [id number] Location: Ordering: JD JUAN F Exam Date: 02/21/2023/8:16 Family Phys: ELDA BRAHNAM Charge Code: 676904 Physician: [place] Order #: [id number] Dose#: PROCEDURE: THYROID ULTRASOUND COMPARISON: None. INDICATIONS: Endocrine disorder TECHNIQUE: High-resolution ultrasound was performed of the thyroid gland. FINDINGS: RIGHT LOBE: Absent LEFT LOBE: Normal. No visible mass, cyst, calcification, enlargement, or abnormal echotexture. Left lobe measures 4.2 x 1.5 x 1.4 cm. ISTHMUS: Normal. No visible mass, cyst, calcification, enlargement, or abnormal echotexture. Isthmus measures 0.2 cm. OTHER: None. CONCLUSION: 1. Unremarkable left thyroid lobe 2. Right thyroid lobe absent Dictated by: Ct Saavedra MD on 02/21/2023 at 11:35 Approved by: Ct Saavedra MD on 02/21/2023 at 11:40 Normal [facility] Absolute lymphocyte countOrd ered By: Dr. Branham on 08-30-2022 Lymphocytes Auto (Unsp spec) [#/Vol] 1.95 10*3/uL 0.83-4.51 [facility] Basophil percentageOrdered B y: Dr. Branham on 08-30-2022 Basophils/100 WBC (Bld) 0.9 % 0-1 [facility] Bilirubin [Mass/Vol] 0.50 mg/dL 0.20-1.[address] [facility] Comment on above: For patients on eltr ombopag therapy, use of Dimension [place] TBIL is not recommended. Chloride [Moles/Vol] 110 mmol/L 98-[address] [facility] Eosinophils/100 WBC (Bld) 1.7 % 0-5 [facility] Glucose [Mass/Vol] 84 mg/dL 74-[address] [facility] Neutrophils (Bld) [#/Vol] 2.8 10*3/uL 2.0-7.7 [facility] Neutrophils/100 WBC (Bld) 53.0 % 47-70 [facility] Potassium [Moles/Vol] 4.2 mmol/L 3.5-5.1 [facility] Protein [Mass/Vol] 7.7 g/dL 6.4-8.[address] [facility] Sodium [Moles/Vol] 142 mmol/L 136-[address] [facility] WBC (Bld) [#/Vol] 5.3 10*3/uL 4.4-11.[address] [facility] Blood erythrocytes count (nu mber/volume)Ordered By: Dr. Branham on 08-30-2022 RBC (Bld) [#/Vol] 4.85 10*6/uL 4.2-5.4 [facility] Blood hemoglobin measurement (mass/volume)Ordered By: Dr. Branham on 08-30-2022 Hemoglobin (Bld) [Mass/Vol] 14.4 g/dL 12.0-15.0 [facility] Blood lymphocytes/100 leukoc ytesOrdered By: Dr. Branham on 08-30-2022 Lymphocytes/100 WBC (Bld) 36.8 % 19-41 [facility] Blood monocytes/100 leukocyt esOrdered By: Dr. Branham on 08-30-2022 Monocytes/100 WBC (Bld) 7.4 % 0-10 [facility] Blood platelet mean volumeOr dered By: Dr. Branham on 08-30-2022 Platelet mean volume (Bld) [Entitic vol] 10.9 fL 6.2-12.0 [facility] Determination of erythrocyte mean corpuscular volume (MCV)Ordered By: Dr. Branham on 08-30-2022 MCV (RBC) [Entitic vol] 90.5 fL 81-99 [facility] Hematocrit Auto (Bld) [Volum e fraction]Ordered By: Dr. Branham on 08-30-2022 Hematocrit (Bld) [Volume fraction] 43.9 % 37-47 [facility] - Chemistry and C hemistry - challengeOrdered By: Dr. Branham on 08-30-2022 ALP [Catalytic activity/Vol] 77 U/L 45-117 [facility] ALT [Catalytic activity/Vol] 26 U/L 13-56 [facility] CO2 [Moles/Vol] 25.0 mmol/L 21.0-32.0 [facility] Globulin (S) [Mass/Vol] 3.5 g/dL 2.2-4.2 [facility] Urea nitrogen/Creatinine [Mass ratio] 25.0 mg/mg 10-20 [facility] - Hematology and Cell countsOrdered By: Dr. Branham on 08-30-2022 Erythrocyte distribution width (RBC) [Entitic vol] 41.4 fL 35.1-43.9 [facility] Erythrocyte distribution width (RBC) [Ratio] 12.7 % 11.6-14.6 [facility] Immature granulocytes/100 WBC (Bld) 0.200 % 0.0-0.9 [facility] Comment on above: IG% - Immature Granu locytes (promyelocytes, myelocytes and metamyelocytes) > 1% indicates that a LEFT SHIFT is Present. MCH (RBC) [Entitic mass] 29.7 pg 27.0-32.0 [facility] Nucleated RBC/100 WBC (Bld) [Ratio] 0 % 0-5 [facility] MCHC Auto (RBC) [Mass/Vol]Or dered By: Dr. Branham on 08-30-2022 MCHC (RBC) [Mass/Vol] 32.8 g/dL 32-36 [facility] No Panel InformationOrdered By: Dr. Branham on 08-30-2022 Estimated GFR (MDRD) Amer 77 mL/min >60 [facility] Comment on above: GFR Calc Estimated GFR (MDRD) Non-Af Amer 64 mL/min >60 [facility] Comment on above: Non- GFR Calc Thyroid Stimulating Hormone (TSH) 0.52 uIU/mL 0.358-3.74 [facility] Vitamin D 25-Hydroxy 65.4 ng/mL [facility] Comment on above: Vitamin D 25(OH) Sta tus Range Deficiency <20 ng/mL (50nmol/L) Insufficiency 20 - 30 ng/mL (50 - 75 nmol/L) Sufficiency 30 - 100 ng/mL (75 - 250 nmol/L) Toxicity >100 ng/mL (>250 nmol/L) Platelets bldOrdered By: Dr. Branham on 08-30-2022 Platelets (Bld) [#/Vol] 187 10*3/uL 150-450 [facility] Serum or plasma albumin vinicius urement (mass/volume)Ordered By: Dr. Branham on 08-30-2022 Albumin [Mass/Vol] 4.2 g/dL 3.2-5.[address] [facility] Serum or plasma albumin/glob ulin mass ratioOrdered By: Dr. Branham on 08-30-2022 Albumin/Globulin [Mass ratio] 1.2 {ratio} 0.9-2.4 [facility] Serum or plasma calcium vinicius urement (mass/volume)Ordered By: Dr. Branham on 08-30-2022 Calcium [Mass/Vol] 9.8 mg/dL 8.5-10.[address] [facility] Serum or plasma creatinine m easurement (mass/volume)Ordered By: Dr. Branham on 08-30-2022 Creatinine [Mass/Vol] 0.96 mg/dL 0.55-1.02 [facility] Comment on above: The validity of the calculated GFR & GFRAA in patients over 70 years has not been determined. Clinical correlation is essential. Serum or plasma urea nitroge n measurement (mass/volume)Ordered By: Dr. Branham on 08-30-2022 Urea nitrogen [Mass/Vol] 24 mg/dL 7-18 [facility] Thin prep Papanicolaou smear with manual screeningOrdered By: Dr. Branham on 08-30-2022 Thin prep Papanicolaou smear with manual screening 19 U/L 15- [facility] Thin prep Papanicolaou smear with manual screening 7 5-15 [facility] Absolute lymphocyte counton 08-28-2021 Lymphocytes Auto (Unsp spec) [#/Vol] 2.41 10*3/uL 0.83-4.51 [facility] Work Phone: Basophil percentageon 2021 Basophils/100 WBC (Bld) 0.8 % 0-1 [facility] Work Phone: Bilirubin [Mass/Vol] 0.70 mg/dL 0.20-1.[address] [facility] Work Phone: Comment on above: For patients on eltr ombopag therapy, use of Dimension [place] TBIL is not recommended. Chloride [Moles/Vol] 112 mmol/L 98-[address] [facility] Work Phone: [phone] Eosinophils/100 WBC (Bld) 1.8 % 0-5 [facility] Work Phone: Glucose [Mass/Vol] 93 mg/dL 74-[address] [facility] Work Phone: Neutrophils (Bld) [#/Vol] 4.5 10*3/uL 2.0-7.7 [facility] Work Phone: Neutrophils/100 WBC (Bld) 58.8 % 47-70 [facility] Work Phone: Potassium [Moles/Vol] 4.2 mmol/L 3.5-5.1 [facility] Work Phone: Protein [Mass/Vol] 7.8 g/dL 6.4-8.[address] [facility] Work Phone: [phone] Sodium [Moles/Vol] 141 mmol/L 136-[address] [facility] Work Phone: WBC (Bld) [#/Vol] 7.7 10*3/uL 4.4-11.[address] [facility] Work Phone: Blood erythrocytes count (nu mber/volume)on 08-28-2021 RBC (Bld) [#/Vol] 4.68 10*6/uL 4.2-5.4 [facility]: Blood hemoglobin measurement (mass/volume)on 08-28-2021 Hemoglobin (Bld) [Mass/Vol] 14.7 g/dL 12.0-15.0 [facility] Work Phone: Blood lymphocytes/100 leukoc yteson 08-28-2021 Lymphocytes/100 WBC (Bld) 31.3 % 19-41 [facility] Work Phone: Blood monocytes/100 leukocyt eson 08-28-2021 Monocytes/100 WBC (Bld) 6.9 % 0-10 [facility] Work Phone: Blood platelet mean volumeon 08-28-2021 Platelet mean volume (Bld) [Entitic vol] 9.9 fL 6.2-12.0 [facility] Work Phone: Determination of erythrocyte mean corpuscular volume (MCV)on 08-28-2021 MCV (RBC) [Entitic vol] 89.1 fL 81-99 [facility] Work Phone: Hematocrit Auto (Bld) [Volum e fraction]on 08-28-2021 Hematocrit (Bld) [Volume fraction] 41.7 % 37-47 [facility] Work Phone: Laboratory - Chemistry and C hemistry - challengeon 08-28-2021 ALP [Catalytic activity/Vol] 76 U/L 45-117 [facility] Work Phone: ALT [Catalytic activity/Vol] 36 U/L 13-56 [facility] Work Phone: CO2 [Moles/Vol] 27.0 mmol/L 21.0-32.0 [facility] Work Phone: Globulin (S) [Mass/Vol] 3.5 g/dL 2.2-4.2 [facility] Work Phone: Urea nitrogen/Creatinine [Mass ratio] 22.1 mg/mg 10-20 [facility] Work Phone: Laboratory - Hematology and Cell countson 08-28-2021 Erythrocyte distribution width (RBC) [Entitic vol] 41.8 fL 35.1-43.9 [facility] Work Phone: Erythrocyte distribution width (RBC) [Ratio] 12.8 % 11.6-14.6 [facility] Work Phone: Immature granulocytes/100 WBC (Bld) 0.400 % 0.0-0.9 [facility] Work Phone: Comment on above: IG% - Immature Granu locytes (promyelocytes, myelocytes and metamyelocytes) > 1% indicates that a LEFT SHIFT is Present. MCH (RBC) [Entitic mass] 31.4 pg 27.0-32.0 [facility] Work Phone: Nucleated RBC/100 WBC (Bld) [Ratio] 0 % 0-5 [facility] Work Phone: MCHC Auto (RBC) [Mass/Vol]on 08-28-2021 MCHC (RBC) [Mass/Vol] 35.3 g/dL 32-36 [facility] Work Phone: No Panel Informationon 08-28 Estimated GFR (MDRD) Amer 83 mL/min >60 [facility] Work Phone: Comment on above: GFR Calc Estimated GFR (MDRD) Non-Af Amer 69 mL/min >60 [facility] Work Phone: Comment on above: Non- GFR Calc Hepatitis C Antibody Non-Reactive Nonreactive [facility] Work Phone: Comment on above: Non Reactive: < 0.8 Equivocal: >/= 0.8 to < 1.0 Reactive: >/= 1.0The [facility] recommends that a reactive/equivocal HCV antibody result be followed up by the HCV Nucleic Acid Amplificationtest (072413) Thyroid Stimulating Hormone (TSH) 1.29 uIU/mL 0.358-3.74 [facility] Work Phone: Vitamin D 25-Hydroxy 49.9 ng/mL [facility] Work Phone: Comment on above: Vitamin D 25(OH) Sta tus Range Deficiency <20 ng/mL (50nmol/L) Insufficiency 20 - 30 ng/mL (50 - 75 nmol/L) Sufficiency 30 - 100 ng/mL (75 - 250 nmol/L) Toxicity >100 ng/mL (>250 nmol/L) Platelets bldon 08-28-2021 Platelets (Bld) [#/Vol] 197 10*3/uL 150-450 [facility] Work Phone: Serum or plasma albumin vinicius urement (mass/volume)on 08-28-2021 Albumin [Mass/Vol] 4.3 g/dL 3.2-5.[address] [facility] Work Phone: Serum or plasma albumin/glob ulin mass ratioon 08-28-2021 Albumin/Globulin [Mass ratio] 1.2 {ratio} 0.9-2.4 [facility] Work Phone: Serum or plasma calcium vinicius urement (mass/volume)on 08-28-2021 Calcium [Mass/Vol] 9.2 mg/dL 8.5-10.[address] [facility] Work Phone: Serum or plasma creatinine m easurement (mass/volume)on 08-28-2021 Creatinine [Mass/Vol] 0.90 mg/dL 0.55-1.02 [facility] Work Phone: Comment on above: The validity of the calculated GFR & GFRAA in patients over 70 years has not been determined. Clinical correlation is essential. Serum or plasma urea nitroge n measurement (mass/volume)on 08-28-2021 Urea nitrogen [Mass/Vol] 20 mg/dL - [facility] Work Phone: Thin prep Papanicolaou smear with manual screeningon 08-28-2021 Thin prep Papanicolaou smear with manual screening 28 U/L [facility] Work Phone: Thin prep Papanicolaou smear with manual screening 2 - [facility] Work Phone: CNOVon 12-05-2017 CNOV Office Visit (WOOB) ROSEMARIE VASQUEZ ([id number]) 1965 F Date Time Provider Department 12/05/17 11:00 AM JESSI CUBA During your visit today, we recorded the following information about you: Blood pressure Weight 136/80 87.7 kg eJssi Cuba MD 12/05/2017 4:24 PM Signed Rosemarie Vasquez is a 52 year old female who presents for PMB. HPI: Patient presents with PMB. She had a testerosterone AND estrogen pellet injected by a provider in [facility]. Patient reports the pellets were placed November 08. Currently she has been bleeding for the past 11 days - mostly light. She reports right ovary pain that is greater than the left. Patient also reports some nausea. Her first pellets were placed in June. She thinks they have both estrogen AND testosterone. 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 age 8 - THYROIDECTOMY 05/27 Parital thyroidectomy on right side FAMILY HISTORY Problem Relation Age of Onset - hepatitis [Other] [OTHER] Mother - Heart Mother - Cancer Father - Ovarian cancer Sister Social History Marital status: Spouse name: Pepe Years of education: 14 Number of children: 3 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 nebivolol (BYSTOLIC) 5 mg tablet Take 5 mg by mouth once daily. fexofenadine (CHULA) 180 mg ORAL tablet Take 180 mg by mouth once daily. No current facility-administered medications for this visit. Allergies As of Date: 12/05/2017 Allergen Noted Reaction HAY FEVER [SEASONAL ALLERGIES] 12/25/2012 Itching Fully Assessed 01/03/2015 REVIEW OF SYSTEMS Bladder: No dysuria, urinary frequency, urinary urgency, or incontinence; urine has been bright orange Breast: No breast lumps, nipple d/c, overlying skin changes, redness or skin retraction. Allergies and current medication updated:Yes EXAM: There were no vitals taken for this visit. GENERAL: pleasant, female in no apparent distress CHEST: Normal inspiratory effort ABDOMEN: soft, non-tender and no masses PELVIC: external genitalia normal, no vulvar lesions, no cervical lesions, good vaginal support, normal appearing perineal body and perianal region, some blood in vaginal vault NEURO: alert and oriented x3,exam grossly non-focal EXTREMITIES: normal ASSESSMENT AND PLAN: 52yo female with PMB Pap AND hpv as patient overdue Suspect d/t hormonal therapy - recommend stopping this Recommend pelvic US and then EMB or DANDC based on results Patient declines above interventions AND is aware that she may have undiagnosed endometrial hyperplasia or cancer She plans to f/u with the hospital secretary who prescribed the medications Jessi Cuba MD Referring Provider: SELF [200] Allergies As of Date: 12/05/2017 Noted Allergy Reaction HAY FEVER (SEASONAL ALLERGIES) 12/25/2012 9 - Itching Date Reviewed: 12/05/2017 Reviewed by: Jessi Cuba - Fully Assessed Reason for Visit: Discussion [813] Primary Visit Diagnosis:PMB (postmenopausal bleeding) [N95.0] Other Visit Diagnoses:Special screening examination for human papillomavirus (HPV) [Z11.51] Encounter for screening for malignant neoplasm of cervix [Z12.4] Order(s): FEMALE PELVIS TRANSVAG [[id number]] Order #: [id number] FUTURE US FEMALE PELVIS TRANSABD LTD [[id number]] Order #: [id number] FUTURE PAP FLUID CERVICAL SCREENING [[id number]] Order #: [id number] Prescriptions as of 12/05/2017 Sig: METOPROLOL TARTRATE ORAL Take by mouth. DIINDOLYLMETHANE (BULK) MISC FEXOFENADINE 180 MG TABLET Take 180 mg by mouth once octavio* LEVONORGESTREL 20 MCG/24 HR (* 1 Each by INTRAUTERINE route * NEBIVOLOL 5 MG TABLET Take 5 mg by mouth once daily. Problem List As Of Date 12/05/2017 Noted Resolved Thyroid nodule [E04.1] INVALID FOR* IUD (intrauterine device) in place [Z97.5] INVALID FOR* Encounter Status:Closed by JESSI CUBA MD on 12/05/17 Normal [facility] CYTOLOGYon 12-05-2017 CYTOLOGY ADDENDUM PRESENT Specimen originated from [facility] Specimen #: [id number] Submitting Physician: JESSI CUBA MD SPECIMEN SUBMITTED A: CERVICAL, SCREENING, FLUID FINAL DIAGNOSIS A. CERVICAL, SCREENING, FLUID Satisfactory for interpretation. Excess blood. Negative for squamous intraepithelial lesion. Endometrial cells present. COMMENT: Endometrial cells in women 45 years or older, may be associated with benign endometrium, hormonal alterations and less commonly, endometrial or uterine abnormalities. Endometrial evaluation is recommended in postmenopausal women. This specimen has been analyzed by the ThinPrep Imaging System, an automated imaging and review system, which assists the laboratory in evaluating cells on ThinPrep Pap tests. Following automated imaging, selected francois from every slide are reviewed by a quality assurance test program manager. Olga Liu M.D. (Electronic Signature) ADDENDUM Date Ordered: 2018 Date Reported: 2018 The purpose of this addendum is to correct the signout location. JAB/mmk/08/12/2018 Addendum Pathologist: Olga Liu M.D. Electronic Signature ADDITIONAL PROCEDURE(S) HUMAN PAPILLOMA VIRUS Date Ordered: 12/10/2017 Date Reported: 12/11/2017 Procedure Results and Interpretation Negative for HPV DNA high risk type 16 by PCR. Negative for HPV DNA high risk type 18 by PCR. Negative for HPV DNA high risk types: 31,33,35,39,45,51,52,56 ,58,59,66,68 by PCR. This test was developed and its performance characteristics determined by [facility]'s [facility] [place] ([facility]). It has not been cleared or approved by the FDA. [facility] is regulated under CLIA as qualified to perform high-complexity testing. This test is used for clinical purposes. It should not be regarded as investigational or for research. CLINICAL DATA ROUTINE EXAM, HPV Testing: Yes, automatic HPV patients over 30 Date of Last Menstrual Period: Postmenopausal GROSS DESCRIPTION Glacial Acetic Acid added. STAINS A: CERVICAL, SCREENING, FLUID THIN PREP ALLERGIST/IMMUNOLOGIST PHYSICIAN x 2 Date of Report: 12/16/2017 Date of Procedure: 12/05/2017 Date of Receipt: 12/10/2017 Submitted by: JESSI CUBA MD Location: [facility] Diagnostic interpretation performed at [facility], [address] [place] [address] [place] [address]. The Pap Smear is a screening test for cervical cancer. False negative results occur with all screening tests, emphasizing the need for rescreening at recommended intervals, and clinical correlation. Normal [facility] HPV w/Genotypeon 12-05-2017 HPV HighRisk Other Negative for HPV DNA high risk types: 31,33,35,39,45,51,52,56 ,58,59,66,68 by PCR. Normal [facility] Comment on above: Result Comment: This test was developed and its performance characteristics determined by [facility] [place] ([facility]). It has not been cleared or approved by the FDA. [facility] is regulated under CLIA as qualified to perform high-complexity testing. This test is used for clinical purposes. It should not be regarded as investigational or for research. Performed By: #### H PVHRR #### [place] [address] [place] [address] HPV HighRisk Type 16 Negative Normal [facility] Comment on above: Performed By: #### H PVHRR #### [place] [address] [place] [address] HPV HighRisk Type 18 Negative Normal [facility] Comment on above: Performed By: #### H PVHRR #### [place] [address] [place] [address] PROGRESSon 12-05-2017 Protein mass conc HNO ID: [id number] Author: Jessi Cuba Service: (none) Author Type: Physician Type: Progress Notes Filed: 12/05/2017 4:24 PM Note Text: Rosemarie Vasquez is a 52 year old female who presents for PMB. HPI: Patient presents with PMB. She had a testerosterone AND estrogen pellet injected by a provider in [facility]. Patient reports the pellets were placed November 08. Currently she has been bleeding for the past 11 days - mostly light. She reports right ovary pain that is greater than the left. Patient also reports some nausea. Her first pellets were placed in June. She thinks they have both estrogen AND testosterone. 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 age 8 - THYROIDECTOMY 05/27 Parital thyroidectomy on right side FAMILY HISTORY Problem Relation Age of Onset - hepatitis [Other] [OTHER] Mother - Heart Mother - Cancer Father - Ovarian cancer Sister Social History Marital status: Spouse name: Pepe Years of education: 14 Number of children: 3 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 nebivolol (BYSTOLIC) 5 mg tablet Take 5 mg by mouth once daily. fexofenadine (CHULA) 180 mg ORAL tablet Take 180 mg by mouth once daily. No current facility-administered medications for this visit. Allergies As of Date: 12/05/2017 Allergen Noted Reaction HAY FEVER [SEASONAL ALLERGIES] 12/25/2012 Itching Fully Assessed 01/03/2015 REVIEW OF SYSTEMS Bladder: No dysuria, urinary frequency, urinary urgency, or incontinence; urine has been bright orange Breast: No breast lumps, nipple d/c, overlying skin changes, redness or skin retraction. Allergies and current medication updated:Yes EXAM: There were no vitals taken for this visit. GENERAL: pleasant, female in no apparent distress CHEST: Normal inspiratory effort ABDOMEN: soft, non-tender and no masses PELVIC: external genitalia normal, no vulvar lesions, no cervical lesions, good vaginal support, normal appearing perineal body and perianal region, some blood in vaginal vault NEURO: alert and oriented x3,exam grossly non-focal EXTREMITIES: normal ASSESSMENT AND PLAN: 52yo female with PMB Pap AND hpv as patient overdue Suspect d/t hormonal therapy - recommend stopping this Recommend pelvic US and then EMB or DANDC based on results Patient declines above interventions AND is aware that she may have undiagnosed endometrial hyperplasia or cancer She plans to f/u with the hospital secretary who prescribed the medications Jessi uCba MD [facility] Vital Signs Date Time Vital Sign Value Performing Clinician Faci lity 09-11-2023 13:00-0500 Body height 165.[address] Elda Branham Work Phone: [facility] 09-11-2023 13:00-0500 Body mass index (BMI) [Ratio] 31.1 kg/m2 Dr. Elda Branham Work Phone: [facility] 09-11-2023 13:00-0500 Body weight 85.[address] Elda Branham Work Phone: [facility] 09-11-2023 13:00-0500 Diastolic blood pressure 76 mm[Hg] Dr. Elda Branham Work Phone: [facility] 09-11-2023 13:00-0500 Heart rate 82 /min Dr. Elda Branham Work Phone: [facility] 09-11-2023 13:00-0500 Respiratory rate 14 /min Dr. Elda Branham Work Phone: [facility] 09-11-2023 13:00-0500 Systolic blood pressure 119 mm[Hg] Dr. Elda Branham Work Phone: [facility] 07-25-2023 12:34-0500 Heart rate 112 /min Dr. Elda Branham Work Phone: [facility] 07-25-2023 11:15-0500 Body temperature 97.8 [degF] Dr. Elda Branham Work Phone: [facility] 07-25-2023 11:15-0500 Diastolic blood pressure 61 mm[Hg] Dr. Elda Branham Work Phone: [facility] 07-25-2023 11:15-0500 Respiratory rate 20 /min Dr. Elda Branham Work Phone: [facility] 07-25-2023 11:15-0500 SaO2% (BldA) [Mass fraction] 96 % Dr. Elda Branham Work Phone: [facility] 07-25-2023 11:15-0500 Systolic blood pressure 109 mm[Hg] Dr. Elda Branham Work Phone: [facility] 07-24-2023 12:01-0500 Body height 165.[address] Elda Branham Work Phone: [facility] 07-24-2023 12:01-0500 Body mass index (BMI) [Ratio] 31.5 kg/m2 Dr. Elda Branham Work Phone: [facility] 07-24-2023 12:01-0500 Body weight 85.[address] Elda Branham Work Phone: [facility] Encounters Encounter Date Encounter Type Care Provider Facility Start: 12-10-2024 End: 12-10-2024 ambulatory Elda Branham Facility:[facility] Start: 10-29-2024 End: 10-29-2024 ambulatory Elda [facility]fo [facility] Start: 10-07-2024 End: 10-07-[address] Elda Branham MD Work Phone: [facility] Work Phone: Start: 10-07-2024 End: 10-07-[address] Elda Branham MD -Outpatient Breast Imaging Work Phone: Start: 10-07-2024 End: 10-07-2024 ambulatory Elda Branham Facility:[facility] Start: 09-08-2024 End: 09-08-[address] Elda Branham MD Work Phone: [facility] Work Phone: Start: 09-08-2024 End: 09-08-[address] Elda Branham MD -Laboratory, Phy Office 3rd Flr Start: 09-08-2024 End: 09-08-2024 ambulatory Elda Nelson Nunezok Facility:[facility] Start: 05-08-2024 ambulatory Desmond Miranda Facility:[facility] Start: 05-08-2024 End: 05-09-2024 Evaluation and management of inpatient Desmond Miranda Facility:[facility] Start: 02-25-2024 End: 02-25-2024 ambulatory Elda Nelson Adolfo Facility:[facility] Start: 10-07-2023 End: 10-07-[address] Elda Branham Work Phone: [facility] Work Phone: Start: 10-07-2023 End: 10-07-[address] Elda Branham Work Phone: [facility]-Outpatient Breast Imaging Work Phone: Start: 09-11-2023 End: 09-11-[address] Elda Branham Work Phone: [facility] Work Phone: Start: 09-03-2023 End: 09-03-[address] Elda Branham Work Phone: [facility] Work Phone: Start: 09-03-2023 End: 09-03-[address] Elda Branham Work Phone: [facility]-Laboratory, Phy Office 3rd Flr Start: 07-25-2023 Non-patient / Non-visit Dr. Bill Branham Work Phone: [facility] Work Phone: Start: 07-24-2023 Non-patient / Non-visit Dr. Bill Branham Work Phone: [facility] Start: 07-24-2023 Non-patient / Non-visit Dr. Bill Branham Work Phone: [facility] Work Phone: Start: 07-24-2023 End: 07-25-2023 Evaluation and management of inpatient Dr. Elda Branham Work Phone: [facility]-Progressive Care Unit Work Phone: Start: 02-21-2023 End: 02-21-2023 ambulatory [facility] Work Phone: Start: 02-21-2023 End: 02-21-2023 Patient encounter procedure [facility]-Laboratory, Phy Office 3rd Flr Start: 02-21-2023 End: 02-21-2023 ambulatory [facility] Start: 08-30-2022 End: 08-30-2022 ambulatory [facility] Work Phone: Start: 08-30-2022 End: 08-30-2022 [facility] Start: 10-12-2021 End: 10-12-2021 Patient encounter procedure [facility]-Outpatient Breast Imaging Start: 08-28-2021 End: 08-28-2021 [facility] Start: 12-05-2017 End: 12-06-2017 Patient encounter procedure JESSI CUBA [facility] Perez Procedures Date Procedure Procedure Detail Performing Clinician Start: 10-07-2024 Screening mammography [place] Branham MD Work Phone: Start: 10-07-2023 Screening mammography [place] Branham Work Phone: Start: 07-24-2023 CT angiography of ch est with contrast Dr. Elda Branham Work Phone: Start: 07-24-2023 Plain chest X-ray Dr. Sue Branham Work Phone: Start: 10-12-2021 Screening mammography Plan of Treatment Date Care Activity Detail Author Start: 07-25-2023 Care planning and pr oblem solving actions [facility] Start: 07-25-2023 Patient discharge [facility] Start: 07-25-2023 Care planning and pr oblem solving actions [facility] Start: 07-24-2023 End: 07-25-[address] [facility] Start: 07-24-2023 Ambulation without limitation [facility] Start: 07-24-2023 Assessment of risk o f venous thromboembolism [facility] Start: 07-24-2023 Insertion of cathete r into peripheral vein [facility] Start: 07-24-2023 Measuring intake and output [facility] Start: 07-24-2023 Oxygen therapy [facility] Start: 07-24-2023 Providing care accor ding to standard [facility] Start: 07-24-2023 Following clinical p athway protocol [facility] Start: 07-24-2023 Admission procedure [facility] Start: 07-24-2023 Hospital admission, emergency, from emergency room, medical nature [facility] Start: 07-24-2023 [facility] Patient referral [facility] Work Phone: Payers Date Payer Category Payer Self-pay [id number] 2024 Unknown [id number] 1965 Unknown [id number] Private Health Insurance [facility] [id number] Unknown [id number] Unknown [id number] Unknown [id number] Unknown [id number] Unknown [id number] Unknown [id number] Unknown [id number] Unknown [id number] Unknown [id number] 462 Social History Date Type Detail Facility [facility] Work Phone: Start: 1965 Sex Assigned At Female [facility] Start: 07-24-2023 End: 09-11-2023 Tobacco smoking status [facility] Unknown if ever smoked [facility] Start: 05-08-2024 [facility] (finding) [facility] Start: 09-23-2024 End: 10-12-2024 Sex Female (finding) [facility] Functional Status Date Assessment Result Facility 07-25-2023 Functional status Ambulates;Bathroom Priv ilege [facility] Work Phone: Mental Status Date Assessment Result Facility 07-25-2023 Cognitive function Voice/Name [facility] Work Phone: Clinical Notes 07-24-2023 to 05-09-2024 Note Date & Type Note Facility 05-09-2024 Note [facility] Medical Records Department [address] [place] [address] Discharge Summary 05/09/24 1642 MR#: [id number] Acct: [id number] Name: ROSEMARIE VASQUEZ Rep #: [id number] : 1965 58 From: Desmond Miranda DO PCP: Dr. Elda Branham MD Status:ADM IN [id number] Prov[facility] Date of Admission: 05/08/24 Primary Care Physician: Dr. Elda Branham MD Consultations 05/09/24 11:48 Consult: Cardiology Routine Consulting Provider: Margret Morales Reason for Consult: afib EMERGENT Consult: No Notified: Yes Date Notified: 05/09/24 Time Notified: 11:48 Method of Notification: Verbal 05/09/24 12:48 Consult: Cardiology Routine Consulting Provider: Margret Morales Reason for Consult: A-FIB RVR EMERGENT Consult: No Notified: Yes Date Notified: 05/09/24 Time Notified: 12:49 Method of Notification: Verbal Reason For Visit: AFIB RVR Diagnosis Discharge Diagnosis (1) Hypothyroid: Status: Acute Code(s): E03.9 - Hypothyroidism, unspecified (2) Morbid obesity: Status: Acute Code(s): E66.01 - Morbid (severe) obesity due to excess calories (3) Atrial fibrillation with rapid ventricular response: Status: Acute Code(s): I48.91 - Unspecified atrial fibrillation Plan: Patient thinks it may be related with her Mounjaro compounding as she gets. I told him not sure that that culprit but seems like she has underlying predisposition to atrial fibrillation. Patient takes metoprolol succinate 25 daily at home. Will increase that to metoprolol tartrate 25 twice daily. Continue with the diltiazem drip and wean as tolerated. Her [id number] is 2 so we will resume apixaban. Plan Hypothyroidism: Continue with her thyroid replacement VTE prophylaxis: Not indicated as patient is anticoagulated. Medications at Discharge Home Medications thyroid (pork) 60 mg tablet (Manter Thyroid) 60 mg PO DAILY THYROID 07/24/23 cholecalciferol (vitamin D3) 25 mcg (1,000 unit) capsule 25 mcg PO DAILY supplement 08/14/23 tirzepatide 10 mg/0.5 mL subcutaneous pen injector (Mounjaro) 40 mg subcut QWEEK 09/11/23 amiodarone 200 mg tablet 200 mg PO BID #90 tabs 05/09/24 apixaban 5 mg tablet (Eliquis) 5 mg PO BID #60 tabs 05/09/24 metoprolol tartrate 25 mg tablet 25 mg PO BID #60 tabs 05/09/24 Hospital Course Operations None Procedures None Summary of Care Provided Minutes Spent on Discharge: 40 Hospital Course: Patient admitted for recurrent atrial fibrillation. Patient was in atrial fibrillation with RVR and required diltiazem drip. Patient was started on metoprolol tartrate 25 twice daily. They had difficult time weaning her off of the diltiazem to which I consulted cardiology. Patient was seen in consultation by Dr. Morales who started her on amiodarone drip and discontinue the diltiazem drip. Patient converted to normal sinus rhythm. I discussed with Dr. Morales and recommended amiodarone 400 mg twice daily for 1 week and then 200 twice daily thereafter. Also he recommend continue with metoprolol tartrate 25 mg twice daily and anticoagulation with apixaban. He recommends a follow-up with the the [facility]. Weight / BMI Weight Weight: 68.8 kg Body Mass Index (BMI) 25.2 ABG / Lab / Microbiology Data 05/08/24 06:36 05/08/24 06:36 Laboratory: Laboratory Results - last 24 hr 05/09/24 13:51: APTT 27.3 D/C Instructions Discharge Diet: No restrictions Meaningful Use Info Meaningful Use Meaningful Use Diagnoses (Choose all that apply): None applicable Ischemic Stroke Statin Dosing Therapy Reference: STATIN DOSE THERAPY REFERENCE: * Patients > 75 years receive moderate or high dose statin therapy. * Patients 75 years or YOUNGER should receive HIGH intensity statin dose unless contraindicated. You will be required to document reason for non-treatment if statin daily dose does not meet guidelines. HIGH DOSE STATIN THERAPY DAILY Atorvastatin > than or = to 40 mg Rosuvastatin > than or = to 20 mg Amlodipine + Atorvastatin > than or = to 2.5/40 mg Ezetimibe + Simvastatin 10/80 mg Simvastatin 80mg Discharge Plan Admission Admit Date/Time: 05/08/24 07:30 Primary Reason for Your Visit: atrial fibrillation Attending Provider: Desmond Miranda Primary Care Provider: Elda Branham Chi Consulting Providers: Margret Morales Discharge Orders/Prescriptions Prescriptions: New metoprolol tartrate 25 mg Tablet 25 mg PO BID Qty: 60 0RF amiodarone 200 mg tablet 200 mg PO BID Qty: 90 0RF Rx Instructions: 2 tabs (400mg) twice daily for 1 week, then 1 tab (200mg) twice daily for 1 week, then 1 tab daily thereafter Eliquis 5 mg tablet 5 mg PO BID Qty: 60 0RF Continued cholecalciferol (vitamin D3) 25 mcg (1,000 unit) capsule 25 mcg PO DAILY Mounjaro 10 mg/0.5 mL pen injector 40 mg subc (more content not included)... [facility] 07-25-2023 Discharge summary Note Date/Time July 25, 2023 11:32am [facility] Medical Records Department [address] [place] [address] Discharge Summary 07/25/23 1122 MR#: [id number] Acct: [id number] Name: ROSEMARIE VASQUEZ Rep #:[id number] : 1965 57 From: Quinn Arnold MD PCP: Dr. Elda Branham MD Status:ADM I N Location: [place] [address] Providers Date of Admission: 07/24/23 Date of Discharge: 07/25/23 Primary Care Physician: Dr. Elda Branham MD Reason For Visit: A-FIB WITH RVR Diagnosis Discharge Diagnosis (1) Atrial fibrillation with rapid ventricular response: Status: Acute Code(s): I48.91 - Unspecified atrial fibrillation Plan Patient is a 57-year-old lady admitted with A-fib with RVR 1. New onset A-fib with RVR -onset of symptoms more than 48 hours, patient outside the window for cardioversion. Admitted to a monitored bed started on Cardizem drip titrated tokeep heart rate less than 100. As part of the management ordered 2D echo and Cardizem drip. Patient's [id number] Score for Atrial Fibrillation Stroke Riskwas only 1 patient was therefore placed on only antiplatelet aspirin. ? 07/25/2023;Patient seen heart rate relatively well-controlled. Plan for patient to be discharged home with Cardizem and apixaban for subsequent follow-up with cardiology for possible cardioversion as outpatient 2. Hypothyroidism ? Patient is on Manter Thyroid 3. Class I obesity with BMI of 32 ? Weight loss advised 4. DVT prophylaxis ? Lovenox Time spent in the patient's overall evaluation,decision-making process, review of diagnostic data, adjustment of management, discussion with other providers, nursing nursing and ancillary staff involved in patient's care documentation,40 Minutes Medications at Discharge Home Medications thyroid (pork) 60 mg tablet (Manter Thyroid) 60 mg PO DAILY THYROID 07/24/23 apixaban 5 mg tablet (Eliquis) 5 mg PO BID 30 days #60 tabs 07/25/23 diltiazem HCl 120 mg capsule,extended release 24 hr 120 mg PO DAILY #6 caps 07/25/23 metoprolol succinate 25 mg tablet,extended release 24 hr 25 mg PO DAILY BLOOD PRESSURE #60 tabs 07/25/23 Hospital Course Procedures 2-D Echocardiogram Summary of Care Provided Minutes Spent on Discharge: 40 Physical Exam Narrative GENERAL: cooperative HEENT: Atraumatic; normocephalic EYES; Anicteric, Normal Conjunctiva NECK; supple, normal thyroid, RESPIRATORY: Diminished to auscultation CARDIOVASCULAR: irregular S1-S2 tachycardic GI: soft, normoactive bowel sounds, : No Renal angle tenderness; EXTREMITIES: No edema, no clubbing, MUSCULOSKELETAL: no muscle wasting NEURO: Awake; no lateralizing signs. SKIN: No Rash PSYCH; Flat affect Weight / BMI Weight Weight: 85.9 kg Body Mass Index (BMI) 31.5 ABG / Lab / Microbiology Data 07/25/23 06:40 07/25/23 06:40 Laboratory: Laboratory Results - last 24 hr 07/24/23 09:49: D-Dimer Quant (PE/DVT) 0.69 H*, B-Natriuretic Peptide 442.7 H 07/24/23 13:16: Troponin I High Sens 5 07/24/23 16:37: Troponin I High Sens 5 07/25/23 06:40: WBC 5.9, RBC 4.22, Hgb 12.3, Hct 37.3, MCV 88.4, MCH 29.1, MCHC 33.0, RDW Std Deviation 42.5, RDW Coeff of Rich 13.2, Plt Count 190, MPV 10.7, Immature Gran % (Auto) 0.200, Neut % (Auto) 61.4, Lymph % (Auto) 28.5, Apache % (Auto) 7.8, Eos % (Auto) 1.4, Baso % (Auto) 0.7, Absolute Neuts (auto) 3.6, Absolute Lymphs (auto) 1.69, Nucleated RBC % 0, Sodium 146 H, Potassium 3.8, Chloride 117 H, Carbon Dioxide 22.0, Anion Gap 7, BUN 13, Creatinine 0.82, EstimCreat Clear Calc 81.93, Est GFR (MDRD) Af Amer 92, Est GFR (MDRD) Non-Af 76, BUN/Creatinine Ratio 15.8, Glucose 91, Calcium 8.7, Phosphorus 3.3, Magnesium 2.1 Radiography Diagnostic Testing: Radiology Impression Venous Doppler Study 07/24/23 14:13 Interpretation Summary No evidence for acute deep venous thrombosis bilateral lower extremities with patent and compressible bilateral great saphenous veins. Ordering Physician: Quinn Arnold Referring Physician: Elda Branham Chi Performed By: Dwain Swann RVT Chest CTA 07/24/23 16:00 IMPRESSION: Negative CTA chest examination, without a demonstrated pulmonary embolism or arterial dissection. Multilobar basilar atelectasis, otherwise no acute cardiac pulmonary disease. Electronically Signed: Mera Hutton MD at 16:55 EST Reading Location ID and State: [address] [place] [address] , Service support , D/C Instructions Discharge Diet: No restrictions Discharge Activity: Return to Normal Activity Call your doctor if you observe: Fever of 101 or Higher, Shortness of breath, Fainting spells and Chest pain Meaningful Use Info Meaningful Use Diagnoses (Choose all that apply): None applicable Discharge Plan Admission Admit Date/Time: 07/24/23 11:14 Attending Provider: Quinn Arnold Primary Care Provider: Elda Branham Chi Discharge Orders/Prescriptions Prescriptions: New diltiazem HCl 120 mg Capsule,Extended Release 24hr 120 mg PO DAILY Qty: 6 0RF Eliquis 5 mg Tablet 5 mg PO BID 30 Days Qty: 60 0RF Continued thyroid (pork) [Manter Thyroid] 60 mg tablet 60 mg PO DAILY metoprolol succinate 25 mg tablet extended release 24 hr 25 mg PO DAILY Qty: 60 0RF Referrals / Follow Up: Jacinto Diane MD [Med Staff - Active Staff] - Within 2 Weeks Elda Branham Chi, MD [Primary Care Provider] - Within 1 Week Disposition Disposition (needs filled in before D/C Order can be placed): Home, Self Care Charges/Coding Visit Charges Inpatient E&M: 56141 Disch Hosp >30min 07/25/23 1132 <Electronically signed by Quinn Arnold MD> Cosigner Signature (if applicable): CC: Dr. Quinn Arnold MD; Dr. Elda Branham MD~ Signed [facility] Work Phone: 1(705) 306-709901-11-2024 Progress note Author Quinn Arnold [facility] July 25, 2023 10:31am Note Date/Time July 25, 2023 9 :32am [facility] Medical Records Department [address] [place] [id number] Progress Note - Hospitalist 07/25/23931 MR#: [id number] Acct: [id number] Name: ROSEMARIE VASQUEZ Rep #:[id number] : 1965 57 From: Quinn Arnold MD PCP: Dr. Elda Branham MD Status:ADM I N Location: [place] [address] Reason for Visit Reason for Visit: Diagnoses Unspecified atrial fibrillation (07/24/23) Subjective Subjective Patient seen heart rate relatively well-controlled. Plan for patient to be discharged home with Cardizem and apixaban for subsequent follow-up with cardiology for possible cardioversion as outpatient Objective Data Objective Data Vital Signs: Vital Signs Temp Pulse Resp BP Pulse Ox O2 Del Method 97.7 F L 98 20 H 97/50 L 99 Room Air 07/25/23 08:00 07/25/23 09:00 07/25/23 09:00 07/25/23 09:00 07/25/23 09:00 07/25/23 09:00 Oxygen Delivery Method Room Air Weight: 85.9 kg Body Mass Index (BMI) 31.5 Intake & Output: Intake and Output for Last 24 Hours 07/23/23 07/24/23 07/25/23 23:59 23:59 23:59 Intake Total 2664.83 / 2919.83 620.50 / 620.50 Balance 2664.83 / 2919.83 620.50 / 620.50 Lab / Micro Data 07/25/23 06:40 07/25/23 06:40 Labs: Laboratory Results - last 24 hr 07/24/23 09:49: WBC 6.3, RBC 4.78, Hgb 14.2, Hct 41.9, MCV 87.7, MCH 29.7, MCHC 33.9, RDW Std Deviation 40.9, RDW Coeff of Rich 12.9, Plt Count 209, MPV 10.7, Immature Gran % (Auto) 0.300, Neut % (Auto) 61.3, Lymph % (Auto) 30.1, Apache % (Auto) 6.7, Eos % (Auto) 1.0, Baso % (Auto) 0.6, Absolute Neuts (auto) 3.9, Absolute Lymphs (auto) 1.89, Nucleated RBC % 0, PT 13.3, INR 1.0, APTT 27.1, D-Dimer Quant (PE/DVT) 0.69 H*, Sodium 143, Potassium 4.0, Chloride 117 H, Carbon Dioxide 20.0 L, Anion Gap 6, BUN 18, Creatinine 1.01, Estim Creat Clear Calc 66.82, Est GFR (MDRD) Af Amer 72, Est GFR (MDRD) Non-Af 60, BUN/Creatinine Ratio17.8, Glucose 112 H, Calcium 9.7, Troponin I High Sens 5, B-Natriuretic Peptide 442.7 H, TSH 0.92 07/24/23 13:16: Troponin I High Sens 5 07/24/23 16:37: Troponin I High Sens 5 07/25/23 06:40: WBC 5.9, RBC 4.22, Hgb 12.3, Hct 37.3, MCV 88.4, MCH 29.1, MCHC 33.0, RDW Std Deviation 42.5, RDW Coeff of Rich 13.2, Plt Count 190, MPV 10.7, Immature Gran % (Auto) 0.200, Neut % (Auto) 61.4, Lymph % (Auto) 28.5, Apache % (Auto) 7.8, Eos % (Auto) 1.4, Baso % (Auto) 0.7, Absolute Neuts (auto) 3.6, Absolute Lymphs (auto) 1.69, Nucleated RBC % 0, Sodium 146 H, Potassium 3.8, Chloride 117 H, Carbon Dioxide 22.0, Anion Gap 7, BUN 13, Creatinine 0.82, EstimCreat Clear Calc 81.93, Est GFR (MDRD) Af Amer 92, Est GFR (MDRD) Non-Af 76, BUN/Creatinine Ratio 15.8, Glucose 91, Calcium 8.7, Phosphorus 3.3, Magnesium 2.1 Radiography Diagnostic Testing: Radiology Impression Chest X-Ray 07/24/23 10:00 IMPRESSION: Elevation of the right hemidiaphragm. The lungs are clear. Electronically Signed: Yony Stone MD at 10:25 EST , Venous Doppler Study 07/24/23 14:13 Interpretation Summary No evidence for acute deep venous thrombosis bilateral lower extremities with patent and compressible bilateral great saphenous veins. Ordering Physician: Quinn Arnold Referring Physician: Elda Branham Chi Performed By: Dwain Swann, Sue Chest CTA 07/24/23 16:00 IMPRESSION: Negative CTA chest examination, without a demonstrated pulmonary embolism or arterial dissection. Multilobar basilar atelectasis, otherwise no acute cardiac pulmonary disease. Electronically Signed: Mera Hutton MD at 16:55 EST , Physical Exam Narrative GENERAL: cooperative HEENT: Atraumatic; normocephalic EYES; Anicteric, Normal Conjunctiva NECK; supple, normal thyroid, RESPIRATORY: Diminished to auscultation CARDIOVASCULAR: Regular S1 S2, GI: soft, normoactive bowel sounds, : No Renal angle tenderness; EXTREMITIES: No edema, no clubbing, MUSCULOSKELETAL: no muscle wasting NEURO: Awake; no lateralizing signs. SKIN: No Rash PSYCH; Flat affect Assessment & Plan Assessment/Plan (1) Atrial fibrillation with rapid ventricular response: PLAN: Plan Patient is a 57-year-old lady admitted with A-fib with RVR 1. New onset A-fib with RVR -onset of symptoms more than 48 hours, patient outside the window for cardioversion. Admitted to a monitored bed started on Cardizem drip titrated to keep heart rate less than 100. As part of the management ordered 2D echo and Cardizem drip. Patient's [id number] Score for Atrial Fibrillation Stroke Riskwas only 1 patient was therefore placed on only antiplatelet aspirin. ? 07/25/2023;Patient seen heart rate relatively well-controlled. Plan for patient to be discharged home with Cardizem and apixaban for subsequent follow-up with cardiology for possible cardioversion as outpatient 2. Hypothyroidism ? Patient is on Manter Thyroid 3. Class I obesity with BMI of 32 ? Weight loss advised 4. DVT prophylaxis ? Lovenox Time spent in the patient's overall evaluation,decision-making process, review of diagnostic data, adjustment of management, discussion with other providers, nursing nursing and ancillary staff involved in patient's care documentation,40 Minutes Charges/Coding Visit Charges Inpatient E&M: 23103 Subs Hosp L2 07/25/23 1031 <Electronically signed by Quinn Arnold MD> Cosigner Signature (if applicable): CC: ~ Signed [facility] Work Phone: 1(745) 905-910501-10-2024 History and physical note [facility] July 24, [facility] 11:42am Note Date/Time July 24, 2023 1 1:18am [facility] Medical Records Department [address] [place] [address] H&P Exam - Hospitalist 07/24/23 1118 MR#: [id number] Acct: [id number] Name: ROSEMARIE VASQUEZ Rep #:[id number] : 1965 57 From: Quinn Arnold MD PCP: Dr. Elda Branham MD Status:ADM I N Location: [place] [address] HPI - General General Date of Admission: 07/24/23 Date of Service: 07/24/23 Chief Complaint: Lightheadedness HPI Narrative ROSEMARIE VASQUEZ, is a 57 F who presents with lightheadedness. Patient has past medical history significant for hypothyroidism for which patient takes Manter Thyroid. Patient also has history of supraventricular tachycardia for which sheis on beta-blockers. Patient symptoms started 4 days prior. Woke up on the morning of 07/21/2023 feeling weird. Had recurrence over the next couple of days. On the morning of admission woke up feeling lightheadedness. Patient has a sonwho is apparently a nurse who did check outpatient and felt patient was in A-fibpatient was therefore sent to the ED. In the emergency department EKG obtained demonstrated A-fib with RVR patient started on Cardizem drip admitted to a monitored bed for further management PFSH Home Medications metoprolol succinate 25 mg tablet,extended release 24 hr 25 mg PO DAILY BLOOD PRESSURE 07/24/23 [History Last Taken Unknown] thyroid (pork) 60 mg tablet (Manter Thyroid) 60 mg PO DAILY THYROID 07/24/23 [History Last Taken Unknown] Allergy/AdvReac Type Severity Reaction Status Date / Time No Known Allergies Allergy Verified 07/24/23 09:51 Social History Smoking Status: Never smoker ROS ROS Narrative GENERAL: denies fever, chills, night sweats, weight loss, anorexia HEENT: denies headache, sinus congestion, or drainage, dysphagia RESPIRATORY: denies cough, sputum production, shortness of breath, CARDIAC: denies chest pain, orthopnea, PND GASTROINTESTINAL: denies abdominal pain, nausea, vomiting, melena, GENITOURINARY: denies dysuria, urgency, frequency, heamaturia EXTREMITY: denies swelling MUSCULOSKELETAL: denies current joint pain or tenderness NEUROLOGIC: denies focal numbness, weakness, tingling HEMATOLOGIC: denies easy bruising and/or hemorrhage INTEGUMENT: denies rashes PSYCHIATRIC: denies suicidal or homicidal ideation Vital Signs Vital Signs Vital Signs: 07/24/23 09:23 07/24/23 09:57 07/24/23 09:58 Temperature 95.9 F L Temperature Source Temporal Pulse Rate 183 H 173 H Respiratory Rate 18 19 H Respiratory Effort Short of Breath Respiratory Pattern Tachypnea Blood Pressure 129/95 H 104/84 H Blood Pressure Mean 106 90 Blood Pressure Source Blood Pressure Position Blood Pressure Location Pulse Ox 100 97 Oxygen Delivery Method Room Air Room Air 07/24/23 10:09 07/24/23 10:39 07/24/23 11:14 Temperature Temperature Source Pulse Rate 179 H 157 H 167 H Respiratory Rate 19 H 27 H 20 H Respiratory Effort Respiratory Pattern Blood Pressure 129/88 H 126/108 H 103/64 Blood Pressure Mean 101 114 77 Blood Pressure Source Monitor Monitor Blood Pressure Position Sitting Sitting Blood Pressure Location Right Arm Right Arm Pulse Ox 97 96 97 Oxygen Delivery Method Room Air Room Air Room Air Weight Weight: 86.7 kg Body Mass Index (BMI) 31.8 Physical Exam Narrative GENERAL: cooperative HEENT: Atraumatic; normocephalic EYES; Anicteric, Normal Conjunctiva NECK; supple, normal thyroid, RESPIRATORY: Diminished to auscultation CARDIOVASCULAR: Regular S1 S2, GI: soft, normoactive bowel sounds, : No Renal angle tenderness; EXTREMITIES: No edema, no clubbing, MUSCULOSKELETAL: no muscle wasting NEURO: Awake; no lateralizing signs. SKIN: No Rash PSYCH; Flat affect Results Lab / Micro Data 07/24/23 09:49 07/24/23 09:49 Labs: Laboratory Results - last 24 hr 07/24/23 09:49: WBC 6.3, RBC 4.78, Hgb 14.2, Hct 41.9, MCV 87.7, MCH 29.7, MCHC 33.9, RDW Std Deviation 40.9, RDW Coeff of Rich 12.9, Plt Count 209, MPV 10.7, Immature Gran % (Auto) 0.300, Neut % (Auto) 61.3, Lymph % (Auto) 30.1, Apache % (Auto) 6.7, Eos % (Auto) 1.0, Baso % (Auto) 0.6, Absolute Neuts (auto) 3.9, Absolute Lymphs (auto) 1.89, Nucleated RBC % 0, PT 13.3, INR 1.0, APTT 27.1, Sodium 143, Potassium 4.0, Chloride 117 H, Carbon Dioxide 20.0 L, Anion Gap 6, BUN 18, Creatinine 1.01, Estim Creat Clear Calc 66.82, Est GFR (MDRD) Af Amer 72, Est GFR (MDRD) Non-Af 60, BUN/Creatinine Ratio 17.8, Glucose 112 H, Calcium 9.7, Troponin I High Sens 5, TSH 0.92 Imagaing Radiology Impression Chest X-Ray 07/24/23 10:00 IMPRESSION: Elevation of the right hemidiaphragm. The lungs are clear. Electronically Signed: Yony Stone MD at 10:25 EST , Assessment & Plan Assessment/Plan (1) Atrial fibrillation with rapid ventricular response: PLAN: Plan Patient is a 57-year-old lady admitted with A-fib with RVR 1. New onset A-fib with RVR -onset of symptoms more than 48 hours, patient outside the window for cardioversion. Admitted to a monitored bed started on Cardizem drip titrated tokeep heart rate less than 100. As part of the management ordered 2D echo and Cardizem drip. Patient's [id number] Score for Atrial Fibrillation Stroke Riskwas only 1 patient was therefore placed on only antiplatelet aspirin. 2. Hypothyroidism ? Patient is on Manter Thyroid 3. Class I obesity with BMI of 32 ? Weight loss advised 4. DVT prophylaxis ? Lovenox Time spent in the patient's overall evaluation,decision-making process, review of diagnostic data, adjustment of management, discussion with other providers, nursing nursing and ancillary staff involved in patient's care documentation, 55 Minutes Charges/Coding Visit Charges Inpatient E&M: 48050 Init Hosp L2 07/24/23 1142 <Electronically signed by Quinn Arnold MD> Cosigner Signature (if applicable): CC: Dr. Quinn Arnold MD; Dr. Elda Branham MD~ Signed [facility] Work Phone: 1(276) 412-381301-10-2024 Discharge summary Author Jose Maria Smith [facility] July 24, 2023 11:18am Note Date/Time July 24, 2023 9 :52am [facility] Medical Records Department [address] [facility] [place] [address] Emergency Department Summary 07/24/23 MR#: [id number] Acct: [id number] Name: ROSEMARIE VASQUEZ Rep #:[id number] : 1965 57 From: Jose Maria Smith MD PCP: Dr. Elda Branham MD Status:REG E R Location: ED [facility] History of Present Illness Chief Complaint: Other, Pain/Inj Informant: patient and spouse/S.O. Narrative Narrative: Patient presents with palpitations. She states she thinks this is probably been going on at least a couple days. But she is not sure of the specific onset. She is on metoprolol for years related to nonspecific tachycardia that sounds like it may have been diagnosed when she was diagnosed with hypothyroidism. But she has never had A-fib, atrialflutter, SVT or other specific tachycardic rhythm that she knows of. She has never had heart disease or stents. Last check of her thyroid function was about6 months ago. She has no chest pain. Sitting still she is not dyspneic. But if she walks up the hill or significant exertion she feels more short of breath than she normally would. She is a send actually asymptomatic sitting in bed other than feeling her rate go a little quick. She states there is a very strong family history of atrial fibrillation but she has never had it. PFSH PFSH Home Medications metoprolol succinate 25 mg tablet,extended release 24 hr 25 mg PO DAILY 07/24/23[History Last Taken Unknown] thyroid (pork) 60 mg tablet (Manter Thyroid) 60 mg PO DAILY 07/24/23 [History Last Taken Unknown] Allergy/AdvReac Type Severity Reaction Status Date / Time No Known Allergies Allergy Verified 07/24/23 09:51 Social History Smoking Status: Never smoker ROS ROS ED ROS Narrative A complete review of systems was performed and is negative except as documented in the history of present illness. Some specific details below. Constitutional: No recent fevers or chills. Has not felt ill. EYE: No discharge, visual complaints, or pain. ENT: No difficulty swallowing. No swelling. No pain. No reflux symptoms. CV: See history of present illness. Respiratory: See history of present illness. Only short of breath with more significant exertion. Then it calms down when she rests. GI: No abdominal pain. No nausea vomiting diarrhea. No blood in stool. : No frequency dysuria or hematuria. Musculoskeletal: No recent trauma. No pains. No swelling. Skin: No rash. Nondiaphoretic. Neuro: No weakness or numbness. Endocrine: No polyuria or polydipsia. EXAM Physical Exam Narrative Exam Narrative: CONSTITUTIONAL: Patient is nontoxic in appearance. The patient looks comfortable. Work of breathing looks normal. Patient actually looks very calm in bed. Despite her high heart rate she looks amazingly comfortable. HEENT: No notable trauma. Mucous membranes moist. No sinus tenderness. No indication of pain with swallowing. EYES: No conjunctival injection. No proptosis. NECK:No JVD. No stridor. CARDIOVASCULAR: Tachycardic rate. Irregular rhythm. No notable murmur. No JVD. RESPIRATORY: No respiratory distress. Breathing is unlabored. No wheezes. No rhonchi. No rales at either base. No pain with a deep breath. No chest wall tenderness. GASTROINTESTINAL: Not distended. Bowel sounds are normal. No tenderness. No guarding. No rebound. No palpable mass. No bruit is heard. GENITOURINARY: No tenderness over the bladder. No CVA tenderness. MUSCULOSKELETAL: Atraumatic. No peripheral edema. No cord. No tenderness along the deep venous system. No asymmetry. No distended veins. NEUROLOGICAL: Patient is alert and appropriate. No focal deficit noted. SKIN: No noted rashes. No diaphoresis. PSYCHIATRIC: Patient is calm. Mood is appropriate. Const Vital Signs: 07/24/23 09:23 07/24/23 09:57 07/24/23 09:58 Temperature 95.9 F L Temperature Source Temporal Pulse Rate 183 H 173 H Respiratory Rate 18 19 H Respiratory Effort Short of Breath Respiratory Pattern Tachypnea Blood Pressure 129/95 H 104/84 H Blood Pressure Mean 106 90 Blood Pressure Source Blood Pressure Position Blood Pressure Location Pulse Ox 100 97 Oxygen Delivery Method Room Air Room Air 07/24/23 10:09 07/24/23 10:39 Temperature Temperature Source Pulse Rate 179 H 157 H Respiratory Rate 19 H 27 H Respiratory Effort Respiratory Pattern Blood Pressure 129/88 H 126/108 H Blood Pressure Mean 101 114 Blood Pressure Source Monitor Monitor Blood Pressure Position Sitting Sitting Blood Pressure Location Right Arm Right Arm Pulse Ox 97 96 Oxygen Delivery Method Room Air Room Air MDM MDM MDM Narrative Medical decision making narrative: Patient CBC is normal including no anemia. Knoop Patient's electrolytes are overall unremarkable. Glucose is minimally up at 112. Her troponin is negative at 5 despite what seems to be likely a couple days of symptoms. Her TSH happily is normal at 0.92. My independent interpretation of the patient's single view chest x-ray shows mild eventration of the right diaphragm final reading is similar. Patient was started on diltiazem. She is already on a low-dose of metoprolol 25mg with which she took this morning. As we are able to adjust diltiazem a little easier we did start this. Her heart rate is down from mid 180s to about 145/155. She is still in atrial fibrillation. Her blood pressure is also come down with this a little bit. We have gotten her some fluids. She is not toxic. She is still very comfortable. We will have to slowly bring her rate down. But I think she is stable for admission. She has had almost a 20% reduction when I was in the room of her heart rate. I did discuss the case with hospitalist. With her being on oral meds, nausea now IV drip, moderate responsebut slight decrease of blood pressure she will be a full admission. Lab Data Attestation: I reviewed the patient's lab results. Labs: Laboratory Results - last 24 hr 07/24/23 09:49 WBC 6.3 RBC 4.78 Hgb 14.2 Hct 41.9 MCV 87.7 MCH 29.7 MCHC 33.9 RDW Std Deviation 40.9 RDW Coeff of Rich 12.9 Plt Count 209 MPV 10.7 Immature Gran % (Auto) 0.300 Neut % (Auto) 61.3 Lymph % (Auto) 30.1 Apache % (Auto) 6.7 Eos % (Auto) 1.0 Baso % (Auto) 0.6 Absolute Neuts (auto) 3.9 Absolute Lymphs (auto) 1.89 Nucleated RBC % 0 PT 13.3 INR 1.0 APTT 27.1 Sodium 143 Potassium 4.0 Chloride 117 H Carbon Dioxide 20.0 L Anion Gap 6 BUN 18 Creatinine 1.01 Estim Creat Clear Calc 66.82 Est GFR (MDRD) Af Amer 72 Est GFR (MDRD) Non-Af 60 BUN/Creatinine Ratio 17.8 Glucose 112 H Calcium 9.7 Troponin I High Sens 5 TSH 0.92 Radiography Diagnostic Testing: Clinical Impression(s) from Imaging Studies Chest X-Ray 07/24/23 10:00 IMPRESSION: Elevation of the right hemidiaphragm. The lungs are clear. Electronically Signed: Yony Stone MD at 10:25 EST Reading Location ID and State: [facility] / [place] , Service support , EKG Initial EKG: Comments: A my independent interpretation of her EKG shows atrial fibrillation with a rate at 183. No ventricular ectopy noted. Despite the highrate, no significant ST elevation or depression. QRS duration and QTc are measured as normal. Discharge Plan Dx/Rx/DC Orders Clinical Impression: Hx of thyroid disease, Family history of atrial dilatation, Atrial fibrillationwith rapid ventricular response Disposition Disposition: Acute Care Hospital [facility] What to do if you have Problems For any increased pain, shortness of breath, bleeding, nausea or vomiting, chestpain, or any unexpected problems, contact your Primary Care Provider. Call [facility] ([phone]) or report to the closest Emergency Room. Call 911 if necessary. 07/24/23 1118 <Electronically signed by Jose Maria Smith MD> Cosigner Signature (if applicable): CC: Dr. Elda Branham MD ~ Signed [facility] Work Phone: Consult note Author Angeline Romero [facility] July 25, 2023 4:49pm Note Date/Time July 25, 2023 4 :49pm [facility] Medical Records Department [address] [place] [address] Counseling Note - Pharmacy 07/25/23 1648 MR#: [id number] Acct: [id number] Name: ROSEMARIE VASQUEZ Rep #:[id number] : 1965 57 From: Angeline Romero PCP: Dr. Elda Branham MD Status:ADM I N Y [facility] has performed discharge medication reconciliation and counseling for this patient. 1. APIXABAN 5MG PO BID 2. DILTIAZEM CD 120MG PO DAILY The patient's discharge medication list was reviewed for discrepancies and discrepancies were resolved. The patient was counseled on the following discharge medications and changes in medications for homegoing were reviewed. The Reason for Use, instructions for use, and potential side effects were reviewed for all new medications. The patient's questions regarding all of their medications were answered. The patient was able to verbally demonstrate an understanding of their dischargemedications. Medications at Discharge Home Medications thyroid (pork) 60 mg tablet (Manter Thyroid) 60 mg PO DAILY THYROID 07/24/23 apixaban 5 mg tablet (Eliquis) 5 mg PO BID 30 days #60 tabs 07/25/23 diltiazem HCl 120 mg capsule,extended release 24 hr 120 mg PO DAILY #6 caps 07/25/23 metoprolol succinate 25 mg tablet,extended release 24 hr 25 mg PO DAILY BLOOD PRESSURE #60 tabs 07/25/23 07/25/23 1649 <Electronically signed by Angeline Romero> Date _ Angeline Romero Cosigner Signature (if applicable): Date CC: ~ Signed [facility] Work Phone: Evaluation noteNo assessment information available [facility] Work Phone: Evaluation note* Diagnosis Onset Date Resolution Status Atrial fibrillation with rapid ventricular response acute Family history of atrial dilatation acute Hx of thyroid disease acute [facility] Work Phone: Evaluation note* Diagnosis Onset Date Resolution Status Atrial fibrillation with rapid ventricular response resolved Family history of atrial dilatation resolved [facility] Work Phone: Evaluation note* Diagnosis Onset Date Resolution Status Atrial fibrillation with rapid ventricular response resolved Family history of atrial dilatation resolved Atrial fibrillation acute [facility] Work Phone: Reason for referral (narrative)No reason for referral [facility] Work Phone: Summary Purpose Family History No Family History Records Found Relationship Condition Age at Onset Recorded Date/T gwendolyn brother Heart failure Unknown mother Viral hepatitis A without hepatic coma Un known brother Atrial fibrillation Unknown sister Atrial fibrillation Unknown father Malignant neoplasm Unknown Advance Directives No Advanced Directives Records Found Advance Directive Response Recorded Date/ Time Name of Medical Power of Antenna Design Engineer Dain [facility] July 24, 2023 12:05pm Living Will Yes July 24 12:05pm Power of Antenna Design Engineer Yes July 24, 2023 12:05pm Advance Directive Response Recorded Date/ Time Name of Medical Power of Antenna Design Engineer Dain [facility] July 24, 2023 1:05pm Living Will Yes July 24 1:05pm Power of Antenna Design Engineer Yes July 24, 2023 1:05pm Chief Complaint and Reason for Visit Chief Complaint SCREENING Chief Complaint A-FIB WITH RVR A-FIB WITH RVR A-FIB WITH RVR Reason for Visit Atrial fibrillation with rapid ventricular response Family history of atrial dilatation Hx of thyroid disease Chief Complaint A-FIB WITH RVR A-FIB WITH RVR A-FIB WITH RVR Reason for Visit Atrial fibrillation with rapid ventricular response Family history of atrial dilatation Chief Complaint A-FIB WITH RVR A-FIB WITH RVR A-FIB WITH RVR NEW ONSET AFIB RVR ([facility]) SCREEN Reason for Visit Atrial fibrillation with rapid ventricular response Family history of atrial dilatation Atrial fibrillation Chief Complaint Admit Date SCREENING October 07, 2024 10: 31am Additional Source Comments INFORMATION SOURCE (unrecogn ized section and content) DATE CREATED AUTHOR 08/27/2018 [facility] DATE CREATED AUTHOR AUTHOR'S ORGANIZ ATION 02/23/2023 [facility] DATE CREATED AUTHOR AUTHOR'S ORGANIZ ATION 12/16/2024 [facility] Goals (unrecognized section and content) Goals may be documented in a n alternate sectionGoals may be documented in an alternate sectionGoals may be documented in an alternate sectionGoals may be documented in an alternate sectionGoals may be documented in an alternate sectionGoals may be documented in an alternate sectionGoals may be documented in an alternate sectionGoals may be documented in an alternate section Care Teams (unrecognized sec tion and content) Team Status: Active Member Role Status Dates Dr. Guilherme Epperson MD Family Provider Active Dr. Elda Branham MD Primary Care Provider Active Team Status: Inactive Member Role Status Dates Dr. Elda Branham MD Primary Care Provider, Attending Provider Active Team Status: Active Member Role Status Dates Dr. Elda Branham MD Primary Care Provider Active Dr. Jose Maria Smith MD Emergency Provider Active Dr. Quinn Arnold MD Admit Provider, At tending Provider, Other Provider Active Team Status: Active Member Role Status Dates Dr. Elda Branham MD Primary Care Provider Active Dr. Alex Patel MD Attending Provider Active Team Status: Active Member Role Status Dates Dr. Elda Branham MD Primary Care Provider Active Dr. Jacinto Diane MD Attending Provider Active Team Status: Inactive Member Role Status Dates Dr. Elda Branham MD Primary Care Provider Active Dr. Jose Maria Smith MD Emergency Provider Active Dr. Quinn Arnold MD Admit Provider, Attending Provid er Active Team Status: Active Member Role Status Dates Dr. Elda Branham MD Primary Care Provider Active Dr. Alex Patel MD Attending Provider Active Dr. Quinn Arnold MD Referring Provider Active Team Status: Active Member Role Status Dates Dr. Elda Branham MD Primary Care Provider Active Dr. Jacinto Diane MD Attending Provider, Referring Pro vider Active Team Status: Inactive Member Role Status Dates Dr. Elda Branham MD Primary Care Provider, Referring Provider Active Dr. Jacinto Diane MD Attending Provider Active Team Status: Inactive Member Role Status Dates Dr. Elda Branham MD Primary Care Provi isaiah, Attending Provider, Referring Provider Active Team Status: Active Member Role Status Dates Dr. Elda Branham MD Primary Care Provider Active Team Status: Inactive Member Role Status Dates Dr. Elda Branham MD Primary Care Provider Active Start: September 08, 2024 End: September 08, 2024 Dr. Elda Branham MD Attending Provider Active Start: September 08, 2024 End: September 08, 2024 Team Status: Inactive Member Role Status Dates Dr. Elda Branham MD Primary Care Provider Active Start: October 07, 2024 End: October 07, 2024 Dr. Elda Branham MD Attending Provider Active Start: October 07, 2024 End: October 07, 2024 Dr. Elda Branham MD Referring Provider Active Start: October 07, 2024 End: October 07, 2024 FOR RECORDS PERTAINING TO PATIENTS WHO ARE [...] BE BASED ON THE PRIMARY CLINICAL RECORDS. [facility] provides no warranty or guarantee of the accuracy or completeness of information in this document.
--- NOTE | 2024-12-19 10:50 | CT_ITS ---
PROCEDURE: ABDOMEN/PELVIS W IV CONT ONLY 12/19/2024 REASON FOR EXAM: RUQ PAIN TECHNIQUE: Abdomen and pelvis CT with intravenous contrast. Coronal and Sagittal reconstruction series were provided. PATIENT PREPARATION: Per protocol ORAL CONTRAST TYPE: None. AMOUNT: mL CONTRAST: Omnipaque 350 VOLUME: 100 mL One or more dose reduction techniques were used (e.g., Automated exposure control, adjustment of the mA and/or kV according to patient size, use of iterative reconstruction technique. COMPARISON: None FINDINGS: Lung bases: Bibasilar atelectasis and scarring. Liver: Slightly heterogenous enhancement. 20 mm left hepatic lobe simple cysts. Gallbladder: No ductal dilation. No cholelithiasis. Spleen: Normal size. Pancreas: Normal size without evidence of mass surrounding inflammation or ductal dilation. Adrenals: Unremarkable. Kidneys: Normal renal sizes. No hydronephrosis. Bladder: Urinary bladder is unremarkable. Reproductive Organs: No pelvic mass. Trace ascites in the posterior cul-de-sac. Bowel: Stomach is unremarkable. No bowel dilation or significant wall thickening. Large colonic stool. Few scattered colonic diverticuli. No evidence of diverticulitis. Appendix: The appendix is not identified. There is no inflammatory process identified in the right lower quadrant to suggest appendicitis. Lymph nodes: No suspicious lymph node enlargement. Vasculature: The abdominal aorta and IVC are normal. Peritoneum / Retroperitoneum: No pneumoperitoneum. Bones: No suspicious osseous lesions. Soft tissue: Unremarkable. CT/Abdomen/Pelvis W IV Cont ONLY IMPRESSION: No acute findings in the abdomen and pelvis. Large colonic stool. Reading Location: [facility]
[2024-12-19] MEDS: 0.9% Normal Saline (1000mL) 1,000 ML 999 ML IV (10:53)
[2024-12-19 10:59] LABS: ALB/GLOB Ratio 1.8 RATIO (0.9-2.4); AST(SGOT) 15 U/L (<=31); Alanine Aminotransfer ALT/SGPT 8 U/L (<=34); Albumin, Serum 4.3 g/dL (3.5-5.0); Alkaline Phosphatase 49 U/L (35-104); Anion Gap 10 (5-15); BUN 11 mg/dL (4-19); BUN/Creat Ratio 14.2 RATIO (10-20); Calcium,Total 8.9 mg/dL (7.6-11.0); Carbon Dioxide 21.6 mmol/L (21.0-32.0); Chloride 107 mmol/L (98-108); Creatinine, Serum 0.78 mg/dL (0.70-1.20); EST Glomerular Filtration Rate 88 (>60); Estimated Creatinine Clearance 83.43 ml/min (50-250); Globulin 2.4 g/dL (2.2-4.2); Glucose 95 mg/dL (70-99); Lipase 50 U/L (13-75); Potassium 3.9 mmol/L (3.3-5.1); Protein, Total 6.7 g/dL (5.9-8.4); Sodium Level 139 mmol/L (133-145); Total Bilirubin 0.55 mg/dL (0.00-1.30)
[2024-12-19 11:09] VITALS: BP 134/84; PULSE 80; RESP 16; TEMP 36.6; O2SAT 99
[2024-12-19] MEDS: Ondansetron 4 MG/2 ML Vial IV (11:18)
[2024-12-19] MEDS: Morphine 4 MG/ML Syringe IV (11:18)
[2024-12-19 11:20] LABS: Bacteria 0 SEEN /hpf (None Seen); Mucous, Urine 0 SEEN /hpf (<or=2+); Red Blood Cells-Urine 0 SEEN /hpf (0-5); White Blood Cells 0 SEEN /hpf (0-5)
[2024-12-19 11:32] LABS: Color, Urine Yellow (Yellow); Glucose, Dipstick Normal (Normal); Ketone-Dipstick Negative (Negative); Leukocyte Esterase-Dipstick Negative /ul (Negative); Nitrite-Dipstick Negative (Negative); Occult Blood-Urine Negative /ul (Negative); Protein-Dipstick Negative (Negative); Urine Bilirubin Dipstick Negative (Negative); Urine Clarity Sl. Cloudy (Clear); Urine Urobilinogen Normal (Normal); Urine pH 6.5 (5.0 - 8.0)
[2024-12-19 11:39] LABS: Squamous Epithelial Cells - UA 10-25 SEEN /hpf (5-10)
[2024-12-19 12:07] VITALS: BP 117/69; PULSE 84; RESP 18; O2SAT 96
[2024-12-19] MEDS: Dicyclomine 10 MG Capsule 20 MG PO (12:07)
--- NOTE | 2024-12-19 12:16 | EX.ED.DYSGE1 ---
HPI History of Present Illness Chief Complaint: Flank Pain Narrative Narrative: Patient is a 59-year-old female with past medical history of atrial fibrillation, hypothyroidism, hypercholesteremia who presents to the emergency department the chief complaint of right flank pain. Patient states that yesterday she developed pain that had progressively worsened prompting her to come here for further evaluation management. Patient notes that she feels that she has a kidney stone although she has no history of this. States that she recently started a estrogen medication and noted that when she looked this up that this medication can cause kidney stones. Patient denies any painful urination, blood in her urine. Patient states that her pain in her back radiates to the front portion of her abdomen. She states that she has been eating and drinking normally. Patient states that she has been passing gas. States that she has had previous abdominal surgeries including 3 C-sections and abdominoplasty. [facility] Medical History Hyperlipidemia Atrial fibrillation Fatigue Familial hypercholesterolemia due to heterozygous low density lipoprotein (LDL) receptor mutation Osteoarthritis Tachycardia Vitamin D deficiency Atrophic vaginitis Morbid obesity Hypothyroid Syncope Home Medications ?Medication ?Instructions ?Recorded ?Last Taken ?Type thyroid (pork) 60 mg tablet 60 mg PO DAILY THYROID 07/24/23 Unknown History (Emerado Thyroid) cholecalciferol (vitamin D3) 25 25 mcg PO DAILY supplement 08/14/23 Unknown History mcg (1,000 unit) capsule metoprolol tartrate 25 mg tablet 25 mg PO BID #60 tabs 05/09/24 Unknown Rx aspirin 81 mg tablet,delayed 81 mg PO DAILY #1 TAB 10/29/24 Unknown Rx release (Adult Aspirin Regimen) conjugated estrogens 0.625 mg/gram 1 vaginal 2XW 10/29/24 Unknown History vaginal cream (Premarin) semaglutide (weight loss) 0.25 0.25 mg subcut QWEEK 10/29/24 Unknown History mg/0.5 mL subcutaneous pen injector (Wegovy) dicyclomine 20 mg tablet 20 mg PO TID #20 tabs 12/19/24 Unknown Rx docusate sodium 100 mg capsule 100 mg PO DAILY #20 caps 12/19/24 Unknown Rx (Colace) ondansetron 4 mg disintegrating 4 mg PO Q6H PRN nausea and 12/19/24 Unknown Rx tablet vomiting #20 tabs Allergy/AdvReac Type Severity Reaction Status Date / Time No Known Allergies Allergy Verified 12/19/24 10:10 Family History Brother Heart failure Mother Hepatitis a without hepatic coma Brother Afib Sister Afib Father Cancer Surgical History Hx of abdominoplasty Hx of thyroidectomy Social History Smoking Status: Never smoker alcohol intake: never substance use type: does not use caffeine: Yes Type: coffee Number of servings: 2 ROS ROS ED ROS Narrative Constitutional: Denies fevers, chills, headaches Eyes: Denies change in vision double and blurry vision Cardiovascular: Denies chest pain Respiratory: Shortness of breath Abdomen: Complains of abdominal pain as noted above denies vomiting or diarrhea states that she is passing gas, patient states that eating does not exacerbate her abdominal pain : Denies painful urination, hematuria, polyuria Neurological: Denies numbness, wheeze, tingling Musculoskeletal: Complains of right flank pain as noted above Skin: Denies any rashes or lesions EXAM Physical Exam Narrative Exam Narrative: General: Patient is lying in bed rest comfortably did not appear to be acute distress Head: Atraumatic, normocephalic Eyes: PERRL bilaterally, EOMI bilateral, no conjunctival injection noted Neck: Soft and supple, trachea midline Cardiovascular: Regular rate and rhythm Respiratory: Clear to auscultation bilaterally Abdomen: Soft, nondistended, tenderness palpation the right upper quadrant in the epigastric region no rebound or guarding on exam Musculoskeletal: No CVA tenderness on exam Extremities: +5/5 strength in the bilateral upper and lower extremities, radial pulses +2/4 in the bilateral extremities Neurological: Patient follow commands knew that she was at [facility] the year is 2024 Skin: Warm, dry, tact no rashes lesions noted Const Vital Signs: 12/19/24 10:08 12/19/24 11:09 12/19/24 12:07 Temperature 97.9 F 98 F Temperature Source Temporal Oral Pulse Rate 86 80 84 Respiratory Rate 15 16 18 Blood Pressure 127/87 H 134/84 H 117/69 Blood Pressure Mean 100 100 85 Pulse Ox 97 99 96 Oxygen Delivery Method Room Air Room Air MDM MDM MDM Narrative Medical decision making narrative: Patient is a 59-year-old female who presented to the emergency department the chief complaint of right flank pain. On the differential diagnose includes but not limited to UTI, pyelonephritis, urolithiasis, cholecystitis, pancreatitis. Once workup is obtained reviewed she will be reevaluated. Patient will be given IV fluids morphine Zofran. Patient CBC reviewed showed no evidence leukocytosis white blood count was 6.4, hemoglobin 13.1, platelet count was 173. Patient sodium was 139, potassium normal 3.9, creatinine was 0.78. Patient AST and ALT were 15 and 8 respectively. Patient's lipase normal at 50, urinalysis reviewed showed no evidence of infection. Patient CT abdomen pelvis with IV contrast reviewed and showed no acute findings there is a large colonic stool. On reevaluation the patient she is feeling better she would like to go home at this point time. Patient was advised to use MiraLAX twice daily until having adequate bowel movements she also be placed on Colace. Patient will be given prescriptions for Bentyl and Zofran. She is advised to return with worsening symptoms or concerns. She is advised to follow-up with her primary care physician outpatient setting as well. She is encouraged return with any other concerns all question concerns answered she was discharged home in stable condition. Significant other bedside is also agreeable this plan. Lab Data Labs: Laboratory Results - last 24 hr 12/19/24 12/19/24 10:33 11:15 WBC 6.4 RBC 4.30 Hgb 13.1 Hct 38.4 MCV 89.3 MCH 30.5 MCHC 34.1 RDW Std Deviation 42.7 RDW Coeff of Rich 13.0 Plt Count 173 MPV 9.6 Immature Gran % (Auto) 0.300 Neut % (Auto) 69.2 Lymph % (Auto) 23.2 Bowman % (Auto) 5.9 Eos % (Auto) 0.8 Baso % (Auto) 0.6 Absolute Neuts (auto) 4.4 Absolute Lymphs (auto) 1.49 Nucleated RBC % 0 Sodium 139 Potassium 3.9 Chloride 107 Carbon Dioxide 21.6 Anion Gap 10 BUN 11 Creatinine 0.78 Estim Creat Clear Calc 83.43 Est GFR (MDRD) Non-Af 88 BUN/Creatinine Ratio 14.2 Glucose 95 Calcium 8.9 Total Bilirubin 0.55 AST 15 ALT 8 Alkaline Phosphatase 49 Total Protein 6.7 Albumin 4.3 Globulin 2.4 Albumin/Globulin Ratio 1.8 Lipase 50 Urine Color Yellow Urine Clarity Sl. Cloudy Urine pH 6.5 Ur Specific [place] 1.010 Urine Protein Negative Urine Glucose (UA) Normal Urine Ketones Negative Urine Occult Blood Negative Urine Nitrite Negative Urine Bilirubin Negative Urine Urobilinogen Normal Ur Leukocyte Esterase Negative Urine RBC 0 SEEN Urine WBC 0 SEEN Ur Squamous Epith Cells 10-25 SEEN Urine Bacteria 0 SEEN Urine Mucus 0 SEEN Radiography Diagnostic Testing: Clinical Impression(s) from Imaging Studies Abdomen/Pelvis CT 12/19/24 10:50 IMPRESSION: No acute findings in the abdomen and pelvis. Large colonic stool. Reading [facility] Discharge Plan Triage Chief Complaint: Flank Pain ED Provider: Freddie Esquivel Dx/Rx/DC Orders Clinical Impression: Abdominal pain, Constipation Prescriptions: New dicyclomine 20 mg tablet 20 mg PO TID Qty: 20 0RF ondansetron 4 mg tablet,disintegrating 4 mg PO Q6H PRN (Reason: nausea and vomiting) Qty: 20 0RF docusate sodium [Colace] 100 mg capsule 100 mg PO DAILY Qty: 20 0RF No Action cholecalciferol (vitamin D3) 25 mcg (1,000 unit) capsule 25 mcg PO DAILY Wegovy 0.25 mg/0.5 mL pen injector 0.25 mg subcut QWEEK Premarin 0.625 mg/gram cream 1 vaginal 2XW aspirin [Adult Aspirin Regimen] 81 mg tablet,delayed release (DR/EC) 81 mg PO DAILY Qty: 1 0RF thyroid (pork) [Emerado Thyroid] 60 mg tablet 60 mg PO DAILY metoprolol tartrate 25 mg Tablet 25 mg PO BID Qty: 60 0RF Primary Care Provider: Travon Mata Chi Referrals: Travon Mata Chi, MD [Primary Care Provider] - Activity Restrictions/Additional Instructions: Your blood work here today did not show any acute findings your CT scan did not show any acute surgical findings did show that you are constipated. Use MiraLAX twice daily as well as the Colace until you are having adequate bowel movements and then can reduce to once a day. Follow-up your doctor in outpatient setting return with worsening symptoms or other concerns use prescriptions as prescribed that were sent to your pharmacy Print Language: Norwegian Disposition Disposition: Home, Self Care
== END 2024-12-19 12:40 | disposition home or self-care (01) ==
PROVIDERS: Emergency Provider Emergency Medicine; PCP Family Medicine Geriatric Medicine; Visit Provider Emergency Medicine
DX: R10.9 Unspecified abdominal pain (principal); I48.91 Unspecified atrial fibrillation; K59.00 Constipation, unspecified; E78.01 Familial hypercholesterolemia; E03.9 Hypothyroidism, unspecified; Z79.890 Hormone replacement therapy
CPT/HCPCS: 74177; 80053; 81001; 83690; 85025; 96361; 96374; 96375; 99283; Q9967; A4216; J2405

== ENCOUNTER → 2024-12-22 | Outpatient (CLI) | payer OTHER, SELFPAY ==
--- NOTE | 2024-12-22 15:22 | RAD_ITS ---
PROCEDURE: L/S SPINE MIN 4 VIEWS 12/22/2024 REASON FOR EXAM: LOW BACK PAIN TECHNIQUE: Standing AP view(s) of the thoracic and lumbar spine. COMPARISON: None. FINDINGS: Mild dextroscoliosis apex at L3. Grade 1 anterolisthesis of L4 on L5 measuring 3.2 mm without definite evidence of pars defects. There are diffuse spondylotic changes. Findings are demonstrated to by diffuse disc space narrowing, osteophyte formation and degenerative endplate sclerosis. There is diffuse facet joint arthropathy with secondary bilateral neural foramina narrowing. No fracture or dislocation is seen. No aggressive lytic or blastic bony lesion is noted. RAD/L/S Spine Min 4 Views IMPRESSION: Grade 1 anterolisthesis of L4 on L5 without definite evidence of pars defects. Spondylosis. Reading Location[facility]
--- OUTSIDE RECORDS SUMMARY | 2024-12-23 00:01 | XMS RPT_ITS | CCD ---
Author Organization [facility]iniSys[facility] Care Team Providers Care Axle Turner Name Role Phone JESSI CUBA Attending Unavailable JD ROGEL Admitting Unavailable ELDA BRANHAM MD Consulting Unavailable JD ROGEL Attending Unavailable JD ROGEL Primary Care Unavailable PROVIDER, UNKNOWN Consulting Unavailable PROVIDER, UNKNOWN Consulting Unavailable Dr. Elda Branham Chi Primary Care Provider Dr. Jose Maria Smith Emergency Provider Dr. Quinn Arnold Admit Provider Unavailable Dr. Quinn Arnold Attending Provider Unavailable Clayton, Dr. Ball Other Provider Unavailable Dr. Alex Patel Attending Provider Dr. Jacinto Diane Attending Provider [phone] Quinn Arnold Referring Provider Unavailable Benedicto, Dr. Casey Referring Provider [phone] Elda Branham Chi Primary Care Provider Dr. Jose Maria Smith Emergency Provider Dr. Quinn Arnold Admit Provider Unavailable Dr. Quinn Arnold Attending Provider Unavailable Dr. Quinn Arnold Other Provider Unavailable Dr. Alex Patel Attending Provider [phone] Dr. Quinn Arnold Referring Provider Unavailable Dr. Jacinto Diane Attending Provider [phone] Dr. Jacinto Diane Referring Provider [phone] Elda Branham Chi Referring Provider [phone] Adolfo PEÑALOZA, Dr. Elda Damon Primary Care Provider Adolfo PEÑALOZA, Dr. Elda Damon Attending Provider Adolfo PEÑALOZA, Dr. Elda Damon Referring Provider Jenae Johnson Attending Provider Dr. Freddie Esquivel DO Emergency Provider Jopperi, Desmond Admitting Unavailable Adolfo, Elda Chi Primary Care Unavailable Jopperi, Desmond Consulting Unavailable Jopperi, Desmond Attending Unavailable Belal, Farouk Consulting Unavailable Belal, Farouk Attending Unavailable Adolfo, Elda Chi Primary Care Unavailable Freddie Esquivel Attending Unavailable Adolfo, Elda Chi Referring Unavailable Adolfo, Elda Chi Primary Care Unavailable Adolfo, Elda Chi Attending Unavailable Adolfo, Elda Chi Primary Care Unavailable Adolfo, Elda Chi Attending Unavailable Adolfo, Elda Chi Referring Unavailable Adolfo, Elda Chi Primary Care Unavailable Adolfo, Elda Chi Attending Unavailable Adolfo, Elda Chi Primary Care Unavailable Jopperi, Desmond Admitting Unavailable Jopperi, Desmond Attending Unavailable Belal, Farouk Consulting Unavailable Adolfo, Elda Chi Primary Care Unavailable Adolfo, Elda Chi Attending Unavailable Adolfo, Elda Chi Primary Care Unavailable Jenae Ocasio Attending Unavailabl e Adolfo, Elda Chi Referring Unavailable Allergies Allergy Classification Reported Allergen(s) Allergy Type Date of Onset Reaction(s) Facility (1 source) Seasonal allergy; Translations: [SEASONAL ALLERGIES] Propensity to adverse reactions (disorder) 3 [facility] Medications Current Medications Medication Drug Class(es) Dates Sig (Normalized) Sig (Original) aspirin 81 mg delayed release oral tablet (1 source) Platelet Aggregation Inhibitor, Nonsteroidal Anti-inflammatory Drug Start: 10-29-2024 take 1 tablet by mouth once daily Aspirin (Adult Aspirin Regimen) 81 mg tablet,delayed release (DR/EC) Active 81 mg PO DAILY October 29, 2024 12:00am cholecalciferol 0.025 mg oral tablet (6 sources) Vitamin D Start: 12-19-2024 take 1 tablet by mouth once daily Cholecalciferol (Vitamin D3) 25 mcg (1,000 unit) tablet Active 25 ug PO DAILY December 19, 2024 12:00am Start: 08-14-2023 take 1 capsule by mo [facility] once daily Cholecalciferol (Vitamin D3) 25 mcg (1,000 unit) capsule Active 25 ug PO DAILY August 14, 2023 1:00am dicyclomine hydrochloride 20 mg oral tablet (1 source) Anticholinergic Start: 12-19-2024 take 1 tablet by mouth three times daily Dicyclomine 20 mg tablet Active 20 mg PO THREE TIMES A DAY December 19, 2024 12:00am docusate sodium 100 mg oral capsule (1 source) Start: 12-19-2024 take 1 capsule by mouth once daily Docusate Sodium (Colace) 100 mg capsule Active 100 mg PO DAILY December 19, 2024 12:00am estrogens, conjugated (jail) 0.625 mg/ml vaginal cream (6 sources) Estrogen Start: 10-29-2024 Conjugated Estrogens (Premarin) 0.625 mg/gram cream Active 0.625 mg VAGINAL TWICE A WEEK October 29, 2024 12:00am Start: 08-14-2023 End: 05-08-2024 apply 0.625 mg topically two times weekly Conjugated Estrogens (Premarin) 0.625 mg/gram cream Discontinued 1 NMA TOPICAL TWICE A WEEK August 14, 2023 1:00am May 08, 2024 6:27am estrogens, conjugated (jail) 0.3 mg / medroxyPROGESTERone acetate 1.5 mg oral tablet (1 source) Progestin, Estrogen Start: 12-19-2024 Conj Estrog-Medroxyprogest A ce [Conj Estrogen-Medroxyprogesterone 0.3 Mg-1.5 Mg Tablet] (Conj Estrogen-Medroxyprogesterone 0.3 Mg-1.5 Mg ) 0.3-1.5 mg tablet Active 1 {tbl} PO DAILY December 19, 2024 12:00am metoprolol tartrate 25 mg oral tablet (15 sources) beta-Adrenerg ic Mary Start: 05-09-2024 take 1 tablet by mouth twice daily Metoprolol Tartrate 25 mg Tablet Active 25 mg PO TWICE A DAY 60 May 09, 2024 12:00am Start: 07-24-2023 End: 05-09-2024 take 1 tablet by mouth once daily Metoprolol Succinate 25 mg tablet extended release 24 hr Discontinued 25 mg PO DAILY 60 July 25, 2023 12:20pm May 09, 2024 4:46pm ondansetron 4 mg disintegrating oral tablet (1 source) Serotonin-3 Receptor Antagonist Start: 12-19-2024 take 1 tablet by mouth every six hours as needed for nausea and vomiting Ondansetron 4 mg tablet,disintegrating Active 4 mg PO EVERY 6 HOURS as needed for nausea and vomiting December 19, 2024 12:00am Semaglutide (Weight Loss) (1 source) Start: 10-29-2024 Semaglutide (Weight Loss) (Wegovy) 0.25 mg/0.5 mL pen injector Active 0.25 mg SC EVERY WEEK October 29, 2024 12:00am Thyroid (Pork) ([place] Thyroid) 60 mg tablet (6 sources) Start: 07-24-2023 take 1 tablet by mouth once daily Thyroid (Pork) ([place] Thyroid) 60 mg tablet Active 60 mg PO DAILY July 24, 2023 1:00am Start: 07-24-2023 take 1 tablet by mouth once da leonel Thyroid (Pork) ([place] Thyroid) 60 mg tablet Active 60 MG PO DAILY July 24, 2023 1:00am Start: 07-24-2023 take 1 tablet by mouth once da leonel Thyroid (Pork) ([place] Thyroid) 60 mg tablet Active 60 MG PO DAILY July 24, 2023 12:00am Completed/Discontinued Medications Medication Drug Class(es) Dates Sig (Normalized) Sig (Original) amiodarone hydrochloride 200 mg oral tablet (4 sources) Antiarrhythmic Start: 10-29-2024 End: 10-29-2024 take 1 tablet by mouth once daily Amiodarone 200 mg tablet Discontinued 200 mg PO daily October 29, 2024 2:10pm October 29, 2024 2:34pm Start: 05-09-2024 End: 10-29-2024 take 2 tablets by mouth twice daily, then take 1 tablet by mouth twice daily, then take 1 tablet by mouth once daily Amiodarone 200 mg tablet Discontinued 200 mg PO TWICE A DAY 90 May 09, 2024 12:00am October 29, 2024 2:11pm 2 tabs (400mg) twice daily for 1 week, then 1 tab (200mg) twice daily for 1 week, then 1 tab daily thereafter apixaban 5 mg oral tablet (9 sources) Factor Xa Inhibitor Start: 07-25-2023 End: 10-29-2024 take 1 tablet by mouth twice daily Apixaban (Eliquis) 5 mg tablet Discontinued 5 mg PO TWICE A DAY 60 May 09, 2024 12:00am October 29, 2024 2:34pm 24 hr dilTIAZem hydrochloride 120 mg extended release oral capsule (6 sources) Calcium Channel Mary Start: 07-25-2023 End: 05-08-2024 take 1 capsule by mouth once daily Diltiazem Hcl 120 mg Capsule,Extended Release 24hr Discontinued 120 mg PO DAILY July 25, 2023 1:00am May 08, 2024 6:27am Semaglutide (5 sources) Start: 08-14-2023 End: 09-11-2023 Semaglutide (Ozempic) [...] August 14, 2023 12:00am for 4 weeks Tirzepatide (Mounjaro) 10 mg/0.5 mL pen injector (4 sources) Start: 09-11-2023 End: 10-29-2024 Tirzepatide (Mounjaro) 10 mg /0.5 mL pen injector Discontinued 40 mg SC EVERY WEEK September 11, 2023 1:00am October 29, 2024 2:10pm Start: 09-11-2023 Tirzepatide (M ounjaro) 10 mg/0.5 mL pen injector Active 40 mg SC EVERY WEEK September 11, 2023 1:00am Start: 09-11-2023 Tirzepatide (M ounjaro) 10 mg/0.5 mL pen injector Active 40 MG SC EVERY WEEK September 11, 2023 1:00am Problems Problem Classification Problem Date Documented Date Episodic/Chronic Abdominal pain (1 source) Abdominal pain; Translations: [Unspecified abdominal pain] 12-19-2024 Episodic Cardiac dysrhythmias (20 sources) Atrial fibrillation with rapid ventricular response; Translations: [Unspecified atrial fibrillation] Onset: 05-25-20 24 07-24-2023 Chronic Cardiac dysrhythmias (5 sources) Tachycardia; Translations: [Tachycardia, unspecified] 08-14-2023 Episodic Disorders of lipid metabolism (10 sources) 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; Translations: [Familial hypercholesterolemia] 08-14-2023 Chronic Malaise and fatigue (6 sources) Fatigue; Translations: [Other fatigue] Onset: 09-24-19 25 08-14-2023 Episodic Menopausal disorders (5 sources) Atrophic vaginitis; Translations: [Postmenopausal atrophic vaginitis] 08-14-2023 Chronic Nutritional deficiencies (5 sources) Vitamin D deficiency; Translations: [Vitamin D deficiency, unspecified] 08-14-2023 Chronic Osteoarthritis (5 sources) Osteoarthritis; Translations: [Unspecified osteoarthritis, unspecified site] 08-14-2023 Chronic Other endocrine disorders (1 source) Roper's syndrome, unspecified; 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, unspecified] Onset: 12-16-19 Chronic Other gastrointestinal disorders (1 source) Constipation; Translations: [Constipation, unspecified] 12-19-2024 Episodic Other nutritional; endocrine; and metabolic disorders (5 sources) Morbid obesity; Translations: [Morbid (severe) obesity due to excess calories] 08-14-2023 Chronic Other nutritional; endocrine; and metabolic disorders (1 source) Morbid (severe) obesity due to excess calories; Translations: [Morbid (severe) obesity due to excess calories] Onset: 05-25-20 24 Chronic Other nutritional; endocrine; and metabolic disorders (6 sources) H/O: thyroid disorder; Translations: [Personal history [...] mammogram for malignant neoplasm of breast] Onset: 10-13-19 Episodic Residual codes; unclassified (6 sources) FH: Cardiovascular disease; Translations: [Family history of ischemic heart disease and other diseases of the circulatory system] 07-24-2023 Episodic Residual codes; unclassified (3 sources) Family history of ischemic heart disease and other diseases of the circulatory system; Translations: [Family history of other cardiovascular diseases] 07-25-2023 Episodic Syncope (5 sources) Syncope; Translations: [Syncope and collapse] 08-14-2023 Episodic Thyroid disorders (6 sources) Hypothyroidism; Translations: [Hypothyroidism, unspecified] Onset: 05-25-2008-14-2023 Chronic Results Test Name Value Interpretation Reference Range Facility Abdomen/Pelvis W IV Cont ONL Yon 12-19-2024 Abdomen/Pelvis W IV Cont ONLY [facility] Imaging Services [address] [place], [place] [address] Abdomen/Pelvis W IV Cont ONLY MR#: [id number] Acct: [id number] Name: ROSEMARIE VASQUEZ Rep #: [id number] : 1965 F 59 From: Juan J li MD PCP: Dr. Elda Branham MD Status: REG ER Study: Abdomen/Pelvis W IV Cont ONLY Date of Exam: Exam# [id number] Ordering Dr: Freddie Esquivel DO PROCEDURE: ABDOMEN/PELVIS W IV CONT ONLY 12/19/2024 REASON FOR EXAM: RUQ PAIN TECHNIQUE: Abdomen and pelvis CT with intravenous contrast. Coronal and Sagittal reconstruction series were provided. PATIENT PREPARATION: Per protocol ORAL CONTRAST TYPE: None. AMOUNT: mL CONTRAST: Omnipaque 350 VOLUME: 100 mL One or more dose reduction techniques were used (e.g., Automated exposure control, adjustment of the mA and/or kV according to patient size, use of iterative reconstruction technique. COMPARISON: None FINDINGS: Lung bases: Bibasilar atelectasis and scarring. Liver: Slightly heterogenous enhancement. 20 mm left hepatic lobe simple cysts. Gallbladder: No ductal dilation. No cholelithiasis. Spleen: Normal size. Pancreas: Normal size without evidence of mass surrounding inflammation or ductal dilation. Adrenals: Unremarkable. Kidneys: Normal renal sizes. No hydronephrosis. Bladder: Urinary bladder is unremarkable. Reproductive Organs: No pelvic mass. Trace ascites in the posterior cul-de-sac. Bowel: Stomach is unremarkable. No bowel dilation or significant wall thickening. Large colonic stool. Few scattered colonic diverticuli. No evidence of diverticulitis. Appendix: The appendix is not identified. There is no inflammatory process identified in the right lower quadrant to suggest appendicitis. Lymph nodes: No suspicious lymph node enlargement. Vasculature: The abdominal aorta and IVC are normal. Peritoneum / Retroperitoneum: No pneumoperitoneum. Bones: No suspicious osseous lesions. Soft tissue: Unremarkable. CT/Abdomen/Pelvis W IV Cont ONLY IMPRESSION: No acute findings in the abdomen and pelvis. Large colonic stool. Reading [facility] CC: Dr. Elda Branham MD; Dr. Freddie Esquivel DO Hydro Station Operator: Signed Normal [facility] Absolute lymphocyte countOrd ered By: Freddie Esquivel on 12-19-2024 Lymphocytes Auto (Unsp spec) [#/Vol] 1.49 10*3/uL 0.83-4.51 [facility] Absolute neutrophil countOrd ered By: Freddie Esquivel on 12-19-2024 Neutrophils (Bld) [#/Vol] 4.4 10*3/uL 2.0-7.7 [facility] Anion gap in Serum or Plasma Ordered By: Freddie Esquivel on 12-19-2024 Anion gap [Moles/Vol] 10 mmol/L 5-15 [facility] Automated lymphocyte count a s percentage of total leukocytesOrdered By: Freddie Esquivel on 12-19-2024 Lymphocytes/100 WBC Auto (Unsp spec) 23.2 % 19-41 [facility] BUN/creatinine ratioOrdered By: Freddie Esquivel on 12-19-2024 Urea nitrogen/Creatinine [Mass ratio] 14.2 mg/mg 10-20 [facility] Basophil percentageOrdered B y: Freddie Esquivel on 12-19-2024 Basophils/100 WBC (Bld) 0.6 % 0-1 [facility] Bilirubin Test strip Ql (U)O rdered By: Freddie Esquivel on 12-19-2024 Bilirubin Ql (U) Negative Negative [facility] Bilirubin, totalOrdered By: Freddie Esquivel on 12-19-2024 Bilirubin [Mass/Vol] 0.55 mg/dL 0.00-1.30 [facility] CBC W/Diff, Automatedon Absolute Lymph 1.49 X10 3/uL Normal 0.83-4.51 [facility] Comment on above: Performed By: #### L 501.2450, L500.4050, L100.0100 ####[facility] [address] [place], [address] Absolute Neut 4.4 X10 3/uL Normal 2.0-7.7 [facility] Comment on above: Performed By: #### L 501.2450, L500.4050, L100.0100 ####[facility] [address] [place], [address] Basophils/100 WBC (Bld) 0.6 % Normal 0-1 [facility] Comment on above: Performed By: #### L 501.2450, L500.4050, L100.0100 ####[facility] [address] [place], [address] Eosinophils/100 WBC (Bld) 0.8 % Normal 0-5 [facility] Comment on above: Performed By: #### L 501.2450, L500.4050, L100.0100 ####[facility] [address] [place], [address] Erythrocyte distribution width (RBC) [Ratio] 13.0 % Normal 11.6-14.6 [facility] Comment on above: Performed By: #### L 501.2450, L500.4050, L100.0100 ####[facility] [address] [place], [address] Hematocrit (Bld) [Volume fraction] 38.4 % Normal 37-47 [facility] Comment on above: Performed By: #### L 501.2450, L500.4050, L100.0100 ####[facility] [address] [place], [address] Hemoglobin (Bld) [Mass/Vol] 13.1 g/dL Normal 12.0-15.0 [facility] Comment on above: Performed By: #### L 501.2450, L500.4050, L100.0100 ####[facility] [address] [place], [address] IG% 0.300 Normal 0.0-0.9 [facility] Comment on above: Result Comment: IG% - Immature Granulocytes (promyelocytes, myelocytes and metamyelocytes) > 1% indicates that a LEFT SHIFT is Present. Performed By: #### L 501.2450, L500.4050, L100.0100 ####[facility] [address] [place], [address] Lymphocytes/100 WBC (Bld) 23.2 % Normal 19-41 [facility] Comment on above: Performed By: #### L 501.2450, L500.4050, L100.0100 ####[facility] [address] [place], [address] MCH (RBC) [Entitic mass] 30.5 pg Normal 27.0-32.0 [facility] Comment on above: Performed By: #### L 501.2450, L500.4050, L100.0100 ####[facility] [address] [place], [address] MCHC (RBC) [Mass/Vol] 34.1 g/dL Normal 32-36 [facility] Comment on above: Performed By: #### L 501.2450, L500.4050, L100.0100 ####[facility] [address] [place], [address] MCV (RBC) [Entitic vol] 89.3 fL Normal 81-99 [facility] Comment on above: Performed By: #### L 501.2450, L500.4050, L100.0100 ####[facility] [address] [place], [address] Monocytes/100 WBC (Bld) 5.9 % Normal 0-10 [facility] Comment on above: Performed By: #### L 501.2450, L500.4050, L100.0100 ####[facility] [address] [place], [address] Neutrophils/100 WBC (Bld) 69.2 % Normal 47-70 [facility] Comment on above: Performed By: #### L 501.2450, L500.4050, L100.0100 ####[facility] [address] [place], [address] Nucleated RBC (Bld) [#/Vol] 0 10*3/uL Normal 0-5 [facility] Comment on above: Performed By: #### L 501.2450, L500.4050, L100.0100 ####[facility] [address] [place], [address] Platelet mean volume (Bld) [Entitic vol] 9.6 fL Normal 6.2-12.0 [facility] Comment on above: Performed By: #### L 501.2450, L500.4050, L100.0100 ####[facility] [address] [place], [address] Platelets (Bld) [#/Vol] 173 10*3/uL Normal 150-450 [facility] Comment on above: Performed By: #### L 501.2450, L500.4050, L100.0100 ####[facility] [address] [place], [address] RBC (Bld) [#/Vol] 4.30 10*6/uL Normal 4.2-5.4 [facility] Comment on above: Performed By: #### L 501.2450, L500.4050, L100.0100 ####[facility] [address] [place], [address] RDW SD 42.7 fl Normal 35.1-43.9 [facility] Comment on above: Performed By: #### L 501.2450, L500.4050, L100.0100 ####[facility] [address] [place], [address] WBC (Bld) [#/Vol] 6.4 10*3/uL Normal 4.4-11.0 [facility] Comment on above: Performed By: #### L 501.2450, L500.4050, L100.0100 ####[facility] [address] [place], [address] Carbon dioxide, total [Moles /volume] in Central venous bloodOrdered By: Freddie Esquivel on 12-19-2024 CO2 [Moles/Vol] 21.6 mmol/L 21.0-32.0 [facility] Chloride assayOrdered By: Bienvenido Esquivel on 12-19-2024 Chloride [Moles/Vol] 107 mmol/L 98-108 [facility] Comprehensive Metabolic Prof ilon 12-19-2024 Albumin [Mass/Vol] 4.3 g/dL Normal 3.5-5.0 [facility] Comment on above: Performed By: #### L 501.2450, L500.4050, L100.0100 ####[facility] [address] [place], [address] Albumin/Globulin [Mass ratio] 1.8 {ratio} Normal 0.9-2.4 [facility] Comment on above: Performed By: #### L 501.2450, L500.4050, L100.0100 ####[facility] [address] [place], [address] ALK PHOS 49 U/L Normal 35-104 [facility] Comment on above: Performed By: #### L 501.2450, L500.4050, L100.0100 ####[facility] [address] [place], [address] ALT [Catalytic activity/Vol] 8 U/L Normal <=34 [facility] Comment on above: Performed By: #### L 501.2450, L500.4050, L100.0100 ####[facility] [address] [place], [address] AST [Catalytic activity/Vol] 15 U/L Normal <=31 [facility] Comment on above: Performed By: #### L 501.2450, L500.4050, L100.0100 ####[facility] [address] [place], [address] Bilirubin [Mass/Vol] 0.55 mg/dL Normal 0.00-1.30 [facility] Comment on above: Performed By: #### L 501.2450, L500.4050, L100.0100 ####[facility] [address] [place], [address] BUN/CRE 14.2 RATIO Normal 10-20 [facility] Comment on above: Performed By: #### L 501.2450, L500.4050, L100.0100 ####[facility] [address] [place], [address] Calcium [Mass/Vol] 8.9 mg/dL Normal 7.6-11.0 [facility] Comment on above: Performed By: #### L 501.2450, L500.4050, L100.0100 ####[facility] [address] [place], [address] Chloride [Moles/Vol] 107 mmol/L Normal 98-108 [facility] Comment on above: Performed By: #### L 501.2450, L500.4050, L100.0100 ####[facility] [address] [place], [address] CO2 [Moles/Vol] 21.6 mmol/L Normal 21.0-32.0 [facility] Comment on above: Performed By: #### L 501.2450, L500.4050, L100.0100 ####[facility] [address] [place], [address] Creatinine [Mass/Vol] 0.78 mg/dL Normal 0.70-1.20 [facility] Comment on above: Performed By: #### L 501.2450, L500.4050, L100.0100 ####[facility] [address] [place], [address] ECRCL 83.43 ml/min Normal 50-250 [facility] Comment on above: Performed By: #### L 501.2450, L500.4050, L100.0100 ####[facility] [address] [place], [address] GAP 10 Normal 5-15 [facility] Comment on above: Performed By: #### L 501.2450, L500.4050, L100.0100 ####[facility] [address] [place], [address] GFR/1.73 sq M.predicted among non-blacks MDRD (S/P/Bld) [Vol rate/Area] 88 mL/min/{1.73_m2} Normal >60 [facility] Comment on above: Result Comment: mL/m in/1.73m2 CKD-EPI Creatinine Equation (2020) Performed By: #### L 501.2450, L500.4050, L100.0100 ####[facility] [address] [place], [address] Globulin (S) [Mass/Vol] 2.4 g/dL Normal 2.2-4.2 [facility] Comment on above: Performed By: #### L 501.2450, L500.4050, L100.0100 ####[facility] [address] [place], [address] Glucose [Mass/Vol] 95 mg/dL Normal 70-99 [facility] Comment on above: Performed By: #### L 501.2450, L500.4050, L100.0100 ####[facility] [address] [place], [address] Potassium [Moles/Vol] 3.9 mmol/L Normal 3.3-5.1 [facility] Comment on above: Performed By: #### L 501.2450, L500.4050, L100.0100 ####[facility] [address] [place], [address] Sodium [Moles/Vol] 139 mmol/L Normal 133-145 [facility] Comment on above: Performed By: #### L 501.2450, L500.4050, L100.0100 ####[facility] [address] [place], [address] T PROT 6.7 g/dL Normal 5.9-8.4 [facility] Comment on above: Performed By: #### L 501.2450, L500.4050, L100.0100 ####[facility] [address] [place], [address] Urea nitrogen [Mass/Vol] 11 mg/dL Normal 4-19 [facility] Comment on above: Performed By: #### L 501.2450, L500.4050, L100.0100 ####[facility] [address] [place], [address] Emergency Department Summary on 12-19-2024 Emergency Department Summary [facility] Medical Records [facility] [address] [place] [address] Emergency Department Summary 12/19/24 MR#: [id number] Acct: [id number] Name: ROSEMARIE VASQUEZ Rep #: [id number] : 1965 59 From: Freddie Esquivel DO PCP: Dr. Elda Branham MD Status:REG ER Location: ED HPI History of Present Illness Chief Complaint: Flank Pain Narrative Narrative: Patient is a 59-year-old female with past medical history of atrial fibrillation, hypothyroidism, hypercholesteremia who presents to the emergency department the chief complaint of right flank pain. Patient states that yesterday she developed pain that had progressively worsened prompting her to come here for further evaluation management. Patient notes that she feels that she has a kidney stone although she has no history of this. States that she recently started a estrogen medication and noted that when she looked this up that this medication can cause kidney stones. Patient denies any painful urination, blood in her urine. Patient states that her pain in her back radiates to the front portion of her abdomen. She states that she has been eating and drinking normally. Patient states that she has been passing gas. States that she has had previous abdominal surgeries including 3 C-sections and abdominoplasty. [facility] Medical History Hyperlipidemia Atrial fibrillation Fatigue Familial hypercholesterolemia due to heterozygous low density lipoprotein (LDL) receptor mutation Osteoarthritis Tachycardia Vitamin D deficiency Atrophic vaginitis Morbid obesity Hypothyroid Syncope Home Medications ???Medication ???Instructions ???Recorded ???Last Taken ???Type thyroid (pork) 60 mg tablet 60 mg PO DAILY THYROID 07/24/23 Un known History ([place] Thyroid) cholecalciferol (vitamin D3) 25 25 mcg PO DAILY supplement 4 Unknown History mcg (1,000 unit) capsule metoprolol tartrate 25 mg tablet 25 mg PO BID #60 tabs 05/09/24 Unk nown Rx aspirin 81 mg tablet,delayed 81 mg PO DAILY #1 TAB 10/29/24 Unk nown Rx release (Adult Aspirin Regimen) conjugated estrogens 0.625 mg/gram 1 vaginal 2XW 10/29/24 Unknown H istory vaginal cream (Premarin) semaglutide (weight loss) 0.25 0.25 mg subcut QWEEK 10/29/24 Unkn own History mg/0.5 mL subcutaneous pen injector (Avnivbriseida) dicyclomine 20 mg tablet 20 mg PO TID #20 tabs 12/19/24 Unk nown Rx docusate sodium 100 mg capsule 100 mg PO DAILY #20 caps 12/19/24 Unknown Rx (Colace) ondansetron 4 mg disintegrating 4 mg PO Q6H PRN nausea and 5 Unknown Rx tablet vomiting #20 tabs Allergy/AdvReac Type Severity Reaction Status Date / Time No Known Allergies Allergy Verified 12/19/24 10:10 Family History Brother Heart failure Mother Hepatitis a without hepatic coma Brother Afib Sister Afib Father Cancer Surgical History Hx of abdominoplasty Hx of thyroidectomy Social History Smoking Status: Never smoker alcohol intake: never substance use type: does not use caffeine: Yes Type: coffee Number of servings: 2 ROS ROS ED ROS Narrative Constitutional: Denies fevers, chills, headaches Eyes: Denies change in vision double and blurry vision Cardiovascular: Denies chest pain Respiratory: Shortness of breath Abdomen: Complains of abdominal pain as noted above denies vomiting or diarrhea states that she is passing gas, patient states that eating does not exacerbate her abdominal pain : Denies painful urination, hematuria, polyuria Neurological: Denies numbness, wheeze, tingling Musculoskeletal: Complains of right flank pain as noted above Skin: Denies any rashes or lesions EXAM Physical Exam Narrative Exam Narrative: General: Patient is lying in bed rest comfortably did not appear to be acute distress Head: Atraumatic, normocephalic Eyes: PERRL bilaterally, EOMI bilateral, no conjunctival injection noted Neck: Soft and supple, trachea midline Cardiovascular: Regular rate and rhythm Respiratory: Clear to auscultation bilaterally Abdomen: Soft, nondistended, tenderness palpation the right upper quadrant in the epigastric region no rebound or guarding on exam Musculoskeletal: No CVA tenderness on exam Extremities: +5/5 strength in the bilateral upper and lower extremities, radial pulses +2/4 in the bilateral extremities Neurological: Patient follow commands knew that she was at [facility] the year is 2024 Skin: Warm, dry, tact no rashes lesions noted Const Vital Signs: 12/19/24 10:08 12/19/24 11:09 12/19/24 12:07 Temperature 97.9 F 98 F (more content not included)... Normal [facility] Eosinophil percentageOrdered By: Freddie Esquivel on 12-19-2024 Eosinophils/100 WBC (Bld) 0.8 % 0-5 [facility] Erythrocyte distribution wid th ratioOrdered By: Freddie Esquivel on 12-19-2024 Erythrocyte distribution width (RBC) [Ratio] 13.0 % 11.6-14.6 [facility] Erythrocyte distribution wid th standard deviationOrdered By: Freddie Esquivel on 12-19-2024 Erythrocyte distribution width (RBC) [Ratio] 42.7 fl 35.1-43.9 [facility] Glomerular filtration rate ( GFR) estimation/1.73 sq m using serum, plasma, or whole bOrdered By: Freddie Esquivel on 12-19-2024 GFR/1.73 sq M.predicted among non-blacks MDRD (S/P/Bld) [Vol rate/Area] 88 mL/min/{1.73_m2} >60 [facility] Comment on above: mL/min/1.73m2 CKD-EP I Creatinine Equation (2020) Hematocrit Auto (Bld) [Volum e fraction]Ordered By: Freddie Esquivel on 12-19-2024 Hematocrit (Bld) [Volume fraction] 38.4 % 37-47 [facility] Hemoglobin measurementOrdere d By: Freddie Esquivel on 12-19-2024 Hemoglobin (Bld) [Mass/Vol] 13.1 g/dL 12.0-15.0 [facility] Immature granulocytes/100 WB C Auto (Bld)Ordered By: Freddie Esquivel on 12-19-2024 Immature granulocytes/100 WBC (Bld) 0.300 % 0.0-0.9 [facility] Comment on above: IG% - Immature Granu locytes (promyelocytes, myelocytes and metamyelocytes) > 1% indicates that a LEFT SHIFT is Present. Ketones Test strip Ql (U)Ord ered By: Freddie Esquivel on 12-19-2024 Ketones Ql (U) Negative Negative [facility] Laboratory - Chemistry and C hemistry - challengeOrdered By: Freddie Esquivel on 12-19-2024 AST [Catalytic activity/Vol] 15 U/L <32 [facility] Lipaseon 12-19-2024 Lipase [Catalytic activity/Vol] 50 U/L Normal 13-75 [facility] Comment on above: Result Comment: Plea se note: LIPASE revised reference range effective 22. New Lipase methodology. Expected to produce lower values than the previous assay method. NEW Reference Range: 13 - 75 U/L Performed By: #### L 501.2450, L500.4050, L100.0100 ####[facility] [address] [place], [address] Lipase measurementOrdered By : Freddie Esquivel on 12-19-2024 Lipase [Catalytic activity/Vol] 50 U/L 13-75 [facility] Comment on above: Please note:LIPASE r evised reference range effective 22. New Lipase methodology. Expected to produce lower values than the previous assay method. NEW Reference Range: 13 - 75 U/L MCV (mean corpuscular volume ) determinationOrdered By: Freddie Esquivel on 12-19-2024 MCV (RBC) [Entitic vol] 89.3 fL 81-99 [facility] Mean corpuscular hemoglobin (MCH) determinationOrdered By: Freddie Esquivel on 12-19-2024 MCH (RBC) [Entitic mass] 30.5 pg 27.0-32.0 [facility] Mean corpuscular hemoglobin concentration (MCHC) determinationOrdered By: Freddie Esquivel on 12-19-2024 MCHC (RBC) [Mass/Vol] 34.1 g/dL 32-36 [facility] Mean platelet volume determi nationOrdered By: Freddie Esquivel on 12-19-2024 Platelet mean volume (Bld) [Entitic vol] 9.6 fL 6.2-12.0 [facility] Microscopic analysis of urin e for red blood cells (RBC)Ordered By: Freddie Esquivel on 12-19-2024 Microscopic analysis of urine for red blood cells (RBC) 0 SEEN /hpf 0-5 [facility] Monocyte percentageOrdered B y: Freddie Esquivel on 12-19-2024 Monocytes/100 WBC (Bld) 5.9 % 0-10 [facility] Mucus LM Ql (Urine sed)Order ed By: Freddie Esquivel on 12-19-2024 Mucus Ql (Urine sed) 0 SEEN /hpf [facility] Neutrophil percentageOrdered By: Freddie Esquivel on 12-19-2024 Neutrophils/100 WBC (Bld) 69.2 % 47-70 [facility] Nitrite Test strip Ql (U)Ord ered By: Freddie Esquivel on 12-19-2024 Nitrite Ql (U) Negative Negative [facility] Nucleated red blood cell per centageOrdered By: Freddie Esquivel on 12-19-2024 Nucleated RBC/100 WBC (Bld) [Ratio] 0 % 0-5 [facility] Platelet countOrdered By: Bienvenido Esquivel on 12-19-2024 Platelets (Bld) [#/Vol] 173 10*3/uL 150-450 [facility] Potassium measurement (mass/ volume)Ordered By: Freddie Esquivel on 12-19-2024 Potassium (Unsp spec) [Mass/Vol] 3.9 mmol/L 3.3-5.1 [facility] Protein Test strip Ql (U)Ord ered By: Freddie Esquivel on 12-19-2024 Protein Ql (U) Negative Negative [facility] RBC Auto (Bld) [#/Vol]Ordere d By: Freddie Esquivel on 12-19-2024 RBC (Bld) [#/Vol] 4.30 10*6/uL 4.2-5.4 [facility] Serum creatinine measurement (mass/volume)Ordered By: Freddie Esquivel on 12-19-2024 Creatinine [Mass/Vol] 0.78 mg/dL 0.70-1.20 [facility] Serum globulin measurementOr dered By: Freddie Esquivel on 12-19-2024 Globulin (S) [Mass/Vol] 2.4 g/dL 2.2-4.2 [facility] Serum glucose measurement (m ass/volume)Ordered By: Freddie Esquivel on 12-19-2024 Glucose [Mass/Vol] 95 mg/dL 70-99 [facility] Serum or plasma alanine hogan otransferase (ALT) measurementOrdered By: Freddie Esquivel on 12-19-2024 ALT [Catalytic activity/Vol] 8 U/L <35 [facility] Serum or plasma albumin vinicius urement (mass/volume)Ordered By: Freddie Esquivel on 12-19-2024 Albumin [Mass/Vol] 4.3 g/dL 3.5-5.0 [facility] Serum or plasma albumin/glob ulin mass ratioOrdered By: Freddie Esquivel on 12-19-2024 Albumin/Globulin [Mass ratio] 1.8 {ratio} 0.9-2.4 [facility] Serum or plasma alkaline raulito sphatase measurementOrdered By: Freddie Esquivel on 12-19-2024 ALP [Catalytic activity/Vol] 49 U/L 35-104 [facility] Serum or plasma calcium vinicius urement (mass/volume)Ordered By: Freddie Esquivel on 12-19-2024 Calcium [Mass/Vol] 8.9 mg/dL 7.6-11.0 [facility] Serum or plasma urea nitroge n measurement (mass/volume)Ordered By: Freddie Esquivel on 12-19-2024 Urea nitrogen [Mass/Vol] 11 mg/dL 4-19 [facility] Sodium levelOrdered By: Nii Esquivel on 12-19-2024 Sodium [Moles/Vol] 139 mmol/L 133-145 [facility] Squamous epithelial cells de tection in urine sediment by light microscopyOrdered By: Freddie sEquivel on 12-19-2024 Epithelial cells.squamous LM Ql (Urine sed) 10-25 SEEN /hpf 5-10 [facility] Total proteinOrdered By: John Esquivel on 12-19-2024 Protein [Mass/Vol] 6.7 g/dL 5.9-8.4 [facility] Urinalysis, Completeon 12-19 EPI,SQUAMOUS 10-25 SEEN Normal 5-10 [facility] Comment on above: Order Comment: CLEAN CATCH Performed By: #### L 400.0001 ####[facility] [address] [place], [address] BACTERIA 0 SEEN Normal None Seen [facility] Comment on above: Order Comment: CLEAN CATCH Performed By: #### L 400.0001 ####[facility] [address] [place], [address] Mucus Ql (Urine sed) 0 SEEN Normal [facility] Comment on above: Order Comment: CLEAN CATCH Performed By: #### L 400.0001 ####[facility] [address] [place], [address] RBC 0 SEEN Normal 0-5 [facility] Comment on above: Order Comment: CLEAN CATCH Performed By: #### L 400.0001 ####[facility] [address] [place], [address] WBC 0 SEEN Normal 0-5 [facility] Comment on above: Order Comment: CLEAN CATCH Performed By: #### L 400.0001 ####[facility] [address] [place], [address] Urine clarityOrdered By: John Esquivel on 12-19-2024 Clarity (U) Sl. Cloudy Clear [facility] Urine color determinationOrd ered By: Freddie Esquivel on 12-19-2024 Color (U) Yellow Yellow [facility] Urine glucose detectionOrder ed By: Freddie Esquivel on 12-19-2024 Glucose Ql (U) Normal mg/dl Normal [facility] Urine leukocyte esterase det ection by dipstickOrdered By: Freddie Esquivel on 12-19-2024 Leukocyte esterase Test strip Ql (U) Negative Negative [facility] Urine pHOrdered By: Freddie castellon on 12-19-2024 pH (U) 6.5 [pH] 5.0 - 8.0 [facility] Urine sediment bacteria coun t by microscopy (number/high power field)Ordered By: Freddie Esquivel on 12-19-2024 Bacteria LM.HPF (Urine sed) [#/Area] 0 /[HPF] None Seen [facility] Urine specific gravity measu rementOrdered By: Freddie Esquivel on 12-19-2024 Specific gravity (U) [Rel density] 1.010 1.002-1.030 [facility] Urine urobilinogen measureme ntOrdered By: Freddie Esquivel on 12-19-2024 Urobilinogen Ql (U) Normal mg/dl Normal [facility] White blood cell (WBC) count Ordered By: Freddie Esquivel on 12-19-2024 WBC (Bld) [#/Vol] 6.4 10*3/uL 4.4-11.0 [facility] White blood cell countOrdere d By: Freddie Esquivel on 12-19-2024 White blood cell count 0 SEEN /hpf 0-5 [facility] L509.6001on 12-10-2024 CORTISOL 0.55 ug/dL Low 6.02-18.40 [facility] Comment on above: Performed By: #### L 509.6001 ####[facility] [address] [place], [address] Serum or plasma cortisol pearl surement (mass/volume)Ordered By: Elda Branham on 12-10-2024 Cortisol [Mass/Vol] 0.55 ug/dL Low 6.02-18.40 [facility] Cardiology Visit Reporton Cardiology Visit Report [facility] [address] [place] [address] OFFICE VISIT Date of Service: 10/29/24 MR#: [id number] Acct: [id number] Name: ROSEMARIE VASQUEZ Rep #: [id number] : 1965 Provider: LATASHA Anderson Age/Sex: 59/F Location[facility] Status: Signed HPI HPI History of Present [...] NIBP Intake Visit Reasons: 1 Y FU Ship Keeper Required: No Is patient in pain?: No Allergies No Known Allergies Allergy (Verified 10/29/24 14:09) Medications ???Medication ???Instructions ???Recorded ???Confirmed ???Type thyroid (pork) 60 mg tablet 60 mg PO DAILY THYROID 07/24/23 History ([place] Thyroid) cholecalciferol (vitamin D3) 25 25 mcg [...] Tibial Pul (more content not included)... Normal [facility] Breast imaging reportOrdered By: Naida Oseguera on 10-08-2024 Study report [facility] Imaging Services [address] [place] [address] SCRN MAMM (CAD)W/MINH BILAT MR#: [id number] Acct: [id number] Name: ROSEMARIE VASQUEZ Rep #: [id number] : 1965 F 59 From: Sukh Oseguera DO PCP: Dr. Elda Branham MD Status: JOSE ALBERTO TURCIOS Study:SCRN MAMM (CAD)W/MINH BILAT Date of Exa m: 10/07/24 Exam# [id number] Ordering Dr: Elda Branham MD EXAM: SCRN [...] be mailed to the patient. Reading Location: [facility] CC: Dr. 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 Elda Branham MD Status: REG CLI Study: SCRN MAMM (CAD)W/MINH BILAT Date of Exam: 09/13 01/06 Exam# [id number] Ordering Dr: Elda Branham MD EXAM: SCRN [...] be mailed to the patient. Reading Location: [facility] CC: Dr. 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 Normal [facility] Absolute lymphocyte countOrd ered By: Elda Branham on 09-08-2024 Lymphocytes Auto (Unsp spec) [#/Vol] 2.04 10*3/uL 0.83-4.51 [facility] Absolute neutrophil countOrd ered By: Elda Branham on 09-08-2024 Neutrophils (Bld) [#/Vol] 2.5 10*3/uL 2.0-7.7 [facility] Automated lymphocyte count a s percentage of total leukocytesOrdered By: Elda Branham on 09-08-2024 Lymphocytes/100 WBC Auto (Unsp spec) 39.5 % 19-41 [facility] BUN/creatinine ratioOrdered By: Elda Branham on 09-08-2024 Urea nitrogen/Creatinine [Mass ratio] 15.9 mg/mg 10-20 [facility] Basophil percentageOrdered B y: Elda Branham on 09-08-2024 Basophils/100 WBC (Bld) 1.0 % 0-1 [facility] Bilirubin, totalOrdered By: Elda Branham on 09-08-2024 Bilirubin [Mass/Vol] 0.57 mg/dL 0.00-1.30 [facility] CBC W/Diff, Automatedon 08-16 Absolute Lymph 2.04 X10 3/uL Normal 0.83-4.51 [facility] Comment on above: Performed By: #### L 500.4050, L100.0100, L501.9520 ####[facility] [address] [place], [address] Absolute Neut 2.5 X10 3/uL Normal 2.0-7.7 [facility] Comment on above: Performed By: #### L 500.4050, L100.0100, L501.9520 ####[facility] [address] [place], [address] Basophils/100 WBC (Bld) 1.0 % Normal 0-1 [facility] Comment on above: Performed By: #### L 500.4050, L100.0100, L501.9520 ####[facility] [address] [place], [address] Eosinophils/100 WBC (Bld) 2.3 % Normal 0-5 [facility] Comment on above: Performed By: #### L 500.4050, L100.0100, L501.9520 ####[facility] [address] [place], [address] Erythrocyte distribution width (RBC) [Ratio] 13.2 % Normal 11.6-14.6 [facility] Comment on above: Performed By: #### L 500.4050, L100.0100, L501.9520 ####[facility] [address] [place], [address] Hematocrit (Bld) [Volume fraction] 41.9 % Normal 37-47 [facility] Comment on above: Performed By: #### L 500.4050, L100.0100, L501.9520 ####[facility] [address] [place], [address] Hemoglobin (Bld) [Mass/Vol] 14.0 g/dL Normal 12.0-15.0 [facility] Comment on above: Performed By: #### L 500.4050, L100.0100, L501.9520 ####[facility] [address] [place], [address] IG% 0.200 Normal 0.0-0.9 [facility] Comment on above: Result Comment: IG% - Immature Granulocytes (promyelocytes, myelocytes and metamyelocytes) > 1% indicates that a LEFT SHIFT is Present. Performed By: #### L 500.4050, L100.0100, L501.9520 ####[facility] [address] [place], [address] Lymphocytes/100 WBC (Bld) 39.5 % Normal 19-41 [facility] Comment on above: Performed By: #### L 500.4050, L100.0100, L501.9520 ####[facility] [address] [place], [address] MCH (RBC) [Entitic mass] 29.7 pg Normal 27.0-32.0 [facility] Comment on above: Performed By: #### L 500.4050, L100.0100, L501.9520 ####[facility] [address] [place], [address] MCHC (RBC) [Mass/Vol] 33.4 g/dL Normal 32-36 [facility] Comment on above: Performed By: #### L 500.4050, L100.0100, L501.9520 ####[facility] [address] [place], [address] MCV (RBC) [Entitic vol] 88.8 fL Normal 81-99 [facility] Comment on above: Performed By: #### L 500.4050, L100.0100, L501.9520 ####[facility] [address] [place], [address] Monocytes/100 WBC (Bld) 7.8 % Normal 0-10 [facility] Comment on above: Performed By: #### L 500.4050, L100.0100, L501.9520 ####[facility] [address] [place], [address] Neutrophils/100 WBC (Bld) 49.2 % Normal 47-70 [facility] Comment on above: Performed By: #### L 500.4050, L100.0100, L501.9520 ####[facility] [address] [place], [address] Nucleated RBC (Bld) [#/Vol] 0 10*3/uL Normal 0-5 [facility] Comment on above: Performed By: #### L 500.4050, L100.0100, L501.9520 ####[facility] [address] [place], [address] Platelet mean volume (Bld) [Entitic vol] 10.6 fL Normal 6.2-12.0 [facility] Comment on above: Performed By: #### L 500.4050, L100.0100, L501.9520 ####[facility] [address] [place], [address] Platelets (Bld) [#/Vol] 201 10*3/uL Normal 150-450 [facility] Comment on above: Performed By: #### L 500.4050, L100.0100, L501.9520 ####[facility] [address] [place], [address] RBC (Bld) [#/Vol] 4.72 10*6/uL Normal 4.2-5.4 [facility] Comment on above: Performed By: #### L 500.4050, L100.0100, L501.9520 ####[facility] [address] [place], [address] RDW SD 43.0 fl Normal 35.1-43.9 [facility] Comment on above: Performed By: #### L 500.4050, L100.0100, L501.9520 ####[facility] [address] [place], [address] WBC (Bld) [#/Vol] 5.2 10*3/uL Normal 4.4-11.0 [facility] Comment on above: Performed By: #### L 500.4050, L100.0100, L501.9520 ####[facility] [address] [place], [address] Carbon dioxide measurementOr dered By: Elda Branham on 09-08-2024 CO2 [Moles/Vol] 21.4 mmol/L Low 22.0-29.0 [facility] Chloride measurementOrdered By: Elda Branham on 09-08-2024 Chloride [Moles/Vol] 105 mmol/L 96-108 [facility] Comprehensive Metabolic Prof ilon 09-08-2024 Albumin [Mass/Vol] 4.6 g/dL Normal 3.5-5.0 [facility] Comment on above: Performed By: #### L 500.4050, L100.0100, L501.9520 ####[facility] [address] [place], [address] Albumin/Globulin [Mass ratio] 1.7 {ratio} Normal 0.9-2.4 [facility] Comment on above: Performed By: #### L 500.4050, L100.0100, L501.9520 ####[facility] [address] [place], [address] ALK PHOS 62 U/L Normal 35-104 [facility] Comment on above: Performed By: #### L 500.4050, L100.0100, L501.9520 ####[facility] [address] [place], [address] ALT [Catalytic activity/Vol] 13 U/L Normal <=34 [facility] Comment on above: Performed By: #### L 500.4050, L100.0100, L501.9520 ####[facility] [address] [place], [address] Anion gap [Moles/Vol] 16 mmol/L High 5-15 [facility] Comment on above: Performed By: #### L 500.4050, L100.0100, L501.9520 ####[facility] [address] [place], [address] AST [Catalytic activity/Vol] 22 U/L Normal <=31 [facility] Comment on above: Performed By: #### L 500.4050, L100.0100, L501.9520 ####[facility] [address] [place], [address] Bilirubin [Mass/Vol] 0.57 mg/dL Normal 0.00-1.30 [facility] Comment on above: Performed By: #### L 500.4050, L100.0100, L501.9520 ####[facility] [address] [place], [address] BUN/CRE 15.9 RATIO Normal 10-20 [facility] Comment on above: Performed By: #### L 500.4050, L100.0100, L501.9520 ####[facility] [address] [place], [address] Calcium [Mass/Vol] 9.5 mg/dL Normal 7.6-11.0 [facility] Comment on above: Performed By: #### L 500.4050, L100.0100, L501.9520 ####[facility] [address], [address] Chloride [Moles/Vol] 105 mmol/L Normal 96-108 [facility] Comment on above: Performed By: #### L 500.4050, L100.0100, L501.9520 ####[facility] [address] [place], [address] CO2 [Moles/Vol] 21.4 mmol/L Low 22.0-29.0 [facility] Comment on above: Performed By: #### L 500.4050, L100.0100, L501.9520 ####[facility] [address] [place], [address] Creatinine [Mass/Vol] 0.9 mg/dL Normal 0.6-1.0 [facility] Comment on above: Performed By: #### L 500.4050, L100.0100, L501.9520 ####[facility] [address] [place], [address] GFR/1.73 sq M.predicted among non-blacks MDRD (S/P/Bld) [Vol rate/Area] 77 mL/min/{1.73_m2} Normal >60 [facility] Comment on above: Result Comment: mL/m in/1.73m2 CKD-EPI Creatinine Equation (2020) Performed By: #### L 500.4050, L100.0100, L501.9520 ####[facility] [address] [place], [address] Globulin (S) [Mass/Vol] 2.6 g/dL Normal 2.2-4.2 [facility] Comment on above: Performed By: #### L 500.4050, L100.0100, L501.9520 ####[facility] [address] [place], [address] Glucose [Mass/Vol] 82 mg/dL Normal 70-99 [facility] Comment on above: Performed By: #### L 500.4050, L100.0100, L501.9520 ####[facility] [address] [place], [address] Potassium [Moles/Vol] 4.3 mmol/L Normal 3.3-5.1 [facility] Comment on above: Performed By: #### L 500.4050, L100.0100, L501.9520 ####[facility] [address] [place], [address] Sodium [Moles/Vol] 142 mmol/L Normal 133-145 [facility] Comment on above: Performed By: #### L 500.4050, L100.0100, L501.9520 ####[facility] [address] [place], [address] T PROT 7.2 g/dL Normal 5.9-8.4 [facility] Comment on above: Performed By: #### L 500.4050, L100.0100, L501.9520 ####[facility] [address] [place], [address] Urea nitrogen [Mass/Vol] 14 mg/dL Normal 4-19 [facility] Comment on above: Performed By: #### L 500.4050, L100.0100, L501.9520 ####[facility] [address] [place], [address] Creatinine [Moles/Vol]Ordere d By: Elda Branham on 09-08-2024 Creatinine [Mass/Vol] 0.9 mg/dL 0.6-1.0 [facility] Eosinophil percentageOrdered By: Elda Branham 09-08-2024 Eosinophils/100 WBC (Bld) 2.3 % 0-5 [facility] Erythrocyte distribution wid th ratioOrdered By: Elda Branham 09-08-2024 Erythrocyte distribution width (RBC) [Ratio] 13.2 % 11.6-14.6 [facility] Erythrocyte distribution wid th standard deviationOrdered By: Elda Branham 09-08-2024 Erythrocyte distribution width (RBC) [Entitic vol] 43.0 fL 35.1-43.9 [facility] Erythrocyte distribution width (RBC) [Ratio] 43.0 fl 35.1-43.9 [facility] GFR/1.73 sq M.predicted zunilda g non-blacks MDRD (S/P/Bld) [Vol rate/Area]Ordered By: Elda Branham 09-08-2024 Estimated GFR (MDRD) Non-Af Amer 77 >60 [facility] Comment on above: mL/min/1.73m2 CKD-EP I Creatinine Equation (2020) Glomerular filtration rate ( GFR) estimation/1.73 sq m using serum, plasma, or whole bOrdered By: Elda Branham 09-08-2024 GFR/1.73 sq M.predicted among non-blacks MDRD (S/P/Bld) [Vol rate/Area] 77 mL/min/{1.73_m2} >60 [facility] Comment on above: mL/min/1.73m2 CKD-EP I Creatinine Equation (2020) Hematocrit Auto (Bld) [Volum e fraction]Ordered By: Elda Branham 09-08-2024 Hematocrit (Bld) [Volume fraction] 41.9 % 37-47 [facility] Hemoglobin measurementOrdere d By: Elda Branham 09-08-2024 Hemoglobin (Bld) [Mass/Vol] 14.0 g/dL 12.0-15.0 [facility] Immature granulocytes/100 WB C Auto (Bld)Ordered By: Elda Branham 09-08-2024 Immature granulocytes/100 WBC (Bld) 0.200 % 0.0-0.9 [facility] Comment on above: IG% - Immature Granu locytes (promyelocytes, myelocytes and metamyelocytes) > 1% indicates that a LEFT SHIFT is Present. Laboratory - Chemistry and C hemistry - challengeOrdered By: Elda Branham on 09-08-2024 AST [Catalytic activity/Vol] 22 U/L <32 [facility] Lymphocytes Auto (Unsp spec) [#/Vol]Ordered By: Elda Branham on 09-08-2024 Lymphocytes (Bld) [#/Vol] 2.04 10*3/uL 0.83-4.51 [facility] Lymphocytes/100 WBC Auto (Un sp spec)Ordered By: Elda Branham on 09-08-2024 Lymphocytes/100 WBC (Bld) 39.5 % 19-41 [facility] MCV (mean corpuscular volume ) determinationOrdered By: Elda Branham on 09-08-2024 MCV (RBC) [Entitic vol] 88.8 fL 81-99 [facility] Mean corpuscular hemoglobin (MCH) determinationOrdered By: Elda Branham on 09-08-2024 MCH (RBC) [Entitic mass] 29.7 pg 27.0-32.0 [facility] Mean corpuscular hemoglobin concentration (MCHC) determinationOrdered By: Elda Branham on 09-08-2024 MCHC (RBC) [Mass/Vol] 33.4 g/dL 32-36 [facility] Mean platelet volume determi nationOrdered By: Elda Branham on 09-08-2024 Platelet mean volume (Bld) [Entitic vol] 10.6 fL 6.2-12.0 [facility] Monocyte percentageOrdered B y: Elda Branham on 09-08-2024 Monocytes/100 WBC (Bld) 7.8 % 0-10 [facility] Neutrophil percentageOrdered By: Elda Branham on 09-08-2024 Neutrophils/100 WBC (Bld) 49.2 % 47-70 [facility] Nucleated red blood cell per centageOrdered By: Elda Barnham on 09-08-2024 Nucleated RBC/100 WBC (Bld) [Ratio] 0 % 0-5 [facility] Platelet countOrdered By: Bill Branham on 09-08-2024 Platelets (Bld) [#/Vol] 201 10*3/uL 150-450 [facility] RBC Auto (Bld) [#/Vol]Ordere d By: Elda Branham on 09-08-2024 RBC (Bld) [#/Vol] 4.72 10*6/uL 4.2-5.4 [facility] Serum globulin measurementOr dered By: Elda Branham on 09-08-2024 Globulin (S) [Mass/Vol] 2.6 g/dL 2.2-4.2 [facility] Serum glucose measurement (m ass/volume)Ordered By: Elda Branham on 09-08-2024 Glucose [Mass/Vol] 82 mg/dL 70-99 [facility] Serum or plasma alanine hogan otransferase (ALT) measurementOrdered By: Elda Branham on 09-08-2024 ALT [Catalytic activity/Vol] 13 U/L <35 [facility] Serum or plasma albumin vinicius urement (mass/volume)Ordered By: Elda Branham on 09-08-2024 Albumin [Mass/Vol] 4.6 g/dL 3.5-5.0 [facility] Serum or plasma albumin/glob ulin mass ratioOrdered By: Elda Branham 09-08-2024 Albumin/Globulin [Mass ratio] 1.7 {ratio} 0.9-2.4 [facility] Serum or plasma alkaline raulito sphatase measurementOrdered By: Elda Branham 09-08-2024 ALP [Catalytic activity/Vol] 62 U/L 35-104 [facility] Serum or plasma anion gap de termination (moles/volume)Ordered By: Elda Branham 09-08-2024 Anion gap [Moles/Vol] 16 mmol/L High 5-15 [facility] Serum or plasma calcium vinicius urement (mass/volume)Ordered By: Elda Branham 09-08-2024 Calcium [Mass/Vol] 9.5 mg/dL 7.6-11.0 [facility] Serum or plasma creatinine m easurement (moles/volume)Ordered By: Elda Branham 09-08-2024 Creatinine [Moles/Vol] 0.9 mg/dL 0.6-1.0 [facility] Serum or plasma potassium me asurementOrdered By: Elda Branham 09-08-2024 Potassium [Moles/Vol] 4.3 mmol/L 3.3-5.1 [facility] Serum or plasma sodium measu rement (moles/volume)Ordered By: Elda Branham on 09-08-2024 Sodium [Moles/Vol] 142 mmol/L 133-145 [facility] Serum or plasma urea nitroge n measurement (mass/volume)Ordered By: Elda Branham on 09-08-2024 Urea nitrogen [Mass/Vol] 14 mg/dL 4-19 [facility] TSH DL <= 0.005 mIU/L QnOrde red By: Elda Branham on 09-08-2024 Thyroid Stimulating Hormone (TSH) 1.490 uIU/mL 0.300-4.200 [facility] TSH Qn 1.490 uIU/mL 0.300-4.200 [facility] Thyroid Stim Hormone (TSH)on 09-08-2024 TSH 1.490 uIU/mL Normal 0.300-4.200 [facility] Comment on above: Performed By: #### L 500.4050, L100.0100, L501.9520 ####[facility] [address] [facility] [place], [address] Total proteinOrdered By: Elda Branham on 09-08-2024 Protein [Mass/Vol] 7.2 g/dL 5.9-8.4 [facility] White blood cell (WBC) count Ordered By: Elda Branham on 09-08-2024 WBC (Bld) [#/Vol] 5.2 10*3/uL 4.4-11.0 [facility] 12 Lead EKGon 05-09-2024 12 Lead EKG [facility] Cardiovascular Services [address] [place] [address] 12 Lead EKG 05/09/24 1531 MR#: [id number] Acct: [id number] Name: ROSEMARIE VASQUEZ Rep #: [id number] : 1965 58 From: Jacinto Diane MD Attending Dr: Dr. Desmond Miranda, DO Status: DIS IN Ordering Dr: Margret Morales MD Date: 05/09/24 Location: U Sex: F C Admitted: 05/08/24 Test Reason [...] IS UNCONFIRMED Confirmed by BENEDICTO PEÑALOZA, JACINTO ([id number]), editorial writer LELA FAJARDO ([id number]) on 05/11/2024 9:58:06 AM Referred By: Confirmed By:JACINTO DIANE MD 05/11/24 0958 Date Jacinto Diane MD CC: Dr. Desmond Miranda DO; Dr. Margret Morales MD; Dr. Elda Branham MD Signed Normal [facility] Consultation - Cardiologyon 05-09-2024 Consultation - Cardiology [facility] Medical Records Department [address] [place] [address] Consultation - Cardiology 05/09/24 1239 MR#: [id number] Acct: [id number] Name: ROSEMARIE VASQUEZ Rep #: [id number] : 1965 58 From: Margret Morales MD PCP: Dr. Elda Branham MD Status:ADM IN Location: [place] [address] Assessment Plan Assessment/Plan (1) Hypothyroid: (2) Morbid obesity: (3) Atrial fibrillation with rapid ventricular response: PLAN: Plan Cardiac care plan recommendation 58-year-old patient presented to the ER he had [facility] complaining of palpitation Does not have any [...] followed in the office by her primary hood fitter When she been evaluated by echocardiogram showed [...] her for early A-fib ablation. Margret Morales MD,[facility] HPI Consult Data Date of Consult: 05/09/24 HPI Narrative Reason for Consultation: Paroxysmal A-fib HPI Narrative: ROSEMARIE VASQUEZ, is a 58 F who presents [facility] Medical History Hyperlipidemia Fatigue Familial hypercholesterolemia due to heterozygous low density lipoprotein (LDL) receptor mutation Osteoarthritis Tachycardia Vitamin D deficiency Atrophic vaginitis Morbid obesity Hypothyroid Atrial fibrillation Syncope Home Medications ???Medication ???Instructions ???Recorded ???Last Taken ???Type thyroid (pork) 60 mg tablet 60 mg PO DAILY THYROID 07/24/23 Unknown History ([place] Thyroid) metoprolol succinate 25 mg 25 mg [...] Sitting in chair comfortable Review of the cutter v groove showed underlying A-fib with RVR Cardiac exam [...] applicable): CC: (more content not included)... Normal [facility] Partial Thromboplast Timeon 05-09-2024 aPTT Coag (Bld) [Time] 27.3 s Normal 24.1-36.2 [facility] Comment on above: Performed By: #### L 006.8606 ####[facility] [address] [place], [address] 12 Lead EKGon 05-08-2024 12 Lead EKG [facility] Cardiovascular Services [address] [place] [address] 12 Lead EKG 05/08/24 0630 MR#: [id number] Acct: [id number] Name: ROSEMARIE VASQUEZ Rep #: [id number] : 1965 58 From: Jacinto Diane MD Attending Dr: Dr. Desmond Miranda DO Status: DIS IN Ordering Dr: Desmond Gamez DO Date: 05/08/24 Location: [facility] Sex: F C Admitted: 05/08/24 Test Reason [...] ECG Confirmed by BENEDICTO PEÑALOZA, JACINTO ([id number]), editorial writer LELA FAJARDO ([id number]) on 05/11/2024 9:20:45 AM Referred By: Confirmed By:JACINTO DIANE MD 05/11/24 0920 Date Jacinto Diane MD CC: Dr. Desmond Miranda DO; Dr. Desmond Gamez DO; Dr. Elda Branham MD Signed Normal [facility] Basic Metabolic Profile (BMP )on 05-08-2024 BUN/CRE 15.1 RATIO Normal 05-03 [facility] Comment on above: Order Comment: 'TROP ' Serial specimen #1, #2 or #3: 1 Performed By: #### L 500.2500, L501.4020, L100.0100 #### [facility] Laboratory [address] [place], [address] CA,Total 8.8 mg/dL Normal 8.5-10.1 [facility] Comment on above: Order Comment: 'TROP ' Serial specimen #1, #2 or #3: 1 Performed By: #### L 500.2500, L501.4020, L100.0100 #### [facility] [address] [place], [address] Chloride [Moles/Vol] 115 mmol/L High 98-107 [facility] Comment on above: Order Comment: 'TROP ' Serial specimen #1, #2 or #3: 1 Performed By: #### L 500.2500, L501.4020, L100.0100 #### [facility] [address] [place], [address] CO2 [Moles/Vol] 24.0 mmol/L Normal 21.0-32.0 [facility] Comment on above: Order Comment: 'TROP ' Serial specimen #1, #2 or #3: 1 Performed By: #### L 500.2500, L501.4020, L100.0100 #### [facility] [address] [place], [address] Creatinine [Mass/Vol] 0.79 mg/dL Normal 0.55-1.02 [facility] Comment on above: Order Comment: 'TROP ' Serial specimen #1, #2 or #3: 1 Result Comment: The validity of the calculated GFR GFRAA in patients over 70 years has not been determined. Clinical correlation is essential. Performed By: #### L 500.2500, L501.4020, L100.0100 #### [facility] [address] [place], [address] ECRCL 82.93 ml/min Normal [facility] Comment on above: Order Comment: 'TROP ' Serial specimen #1, #2 or #3: 1 Performed By: #### L 500.2500, L501.4020, L100.0100 #### [facility] [address] [place], [address] EST GFR - AA 96 mL/min Normal >60 [facility] Comment on above: Order Comment: 'TROP ' Serial specimen #1, #2 or #3: 1 Result Comment: Afri can Ethiopian GFR Calc Performed By: #### L 500.2500, L501.4020, L100.0100 #### [facility] [address] [place], [address] GAP 5 Normal 5-15 [facility] Comment on above: Order Comment: 'TROP ' Serial specimen #1, #2 or #3: 1 Performed By: #### L 500.2500, L501.4020, L100.0100 #### [facility] [address] [place], [address] GFR/1.73 sq M.predicted among non-blacks MDRD (S/P/Bld) [Vol rate/Area] 79 mL/min/{1.73_m2} Normal >60 [facility] Comment on above: Order Comment: 'TROP ' Serial specimen #1, #2 or #3: 1 Result Comment: Non- GFR Calc Performed By: #### L 500.2500, L501.4020, L100.0100 #### [facility] [address] [place], [address] Glucose [Mass/Vol] 121 mg/dL High 74-106 [facility] Comment on above: Order Comment: 'TROP ' Serial specimen #1, #2 or #3: 1 Result Comment: Fast ing Glucose result from 100 to 125 mg/dL suggests IMPAIRED HOMEOSTASIS per A.D.A. criteria. Performed By: #### L 500.2500, L501.4020, L100.0100 #### [facility] [address] [place], [address] Potassium [Moles/Vol] 3.8 mmol/L Normal 3.5-5.1 [facility] Comment on above: Order Comment: 'TROP ' Serial specimen #1, #2 or #3: 1 Performed By: #### L 500.2500, L501.4020, L100.0100 #### [facility] [address] [place], [address] Sodium [Moles/Vol] 144 mmol/L Normal 136-145 [facility] Comment on above: Order Comment: 'TROP ' Serial specimen #1, #2 or #3: 1 Performed By: #### L 500.2500, L501.4020, L100.0100 #### [facility] [address] [place], [address] Urea nitrogen [Mass/Vol] 12 mg/dL Normal 7-18 [facility] Comment on above: Order Comment: 'TROP ' Serial specimen #1, #2 or #3: 1 Performed By: #### L 500.2500, L501.4020, L100.0100 #### [facility] [address] [place], [address] CBC W/Diff, Automatedon 10-2 5-2023 Absolute Lymph 2.32 X10 3/uL Normal 0.83-4.51 [facility] Comment on above: Performed By: #### L 500.2500, L501.4020, L100.0100 #### [facility] [address] [place], [address] Absolute Neut 2.3 X10 3/uL Normal 2.0-7.7 [facility] Comment on above: Performed By: #### L 500.2500, L501.4020, L100.0100 #### [facility] [address] [place], [address] Basophils/100 WBC (Bld) 0.6 % Normal 0-1 [facility] Comment on above: Performed By: #### L 500.2500, L501.4020, L100.0100 #### [facility] [address] [place], [address] Eosinophils/100 WBC (Bld) 1.2 % Normal 0-5 [facility] Comment on above: Performed By: #### L 500.2500, L501.4020, L100.0100 #### [facility] [address] [place], [address] Erythrocyte distribution width (RBC) [Ratio] 12.6 % Normal 11.6-14.6 [facility] Comment on above: Performed By: #### L 500.2500, L501.4020, L100.0100 #### [facility] [address] [place], [address] Hematocrit (Bld) [Volume fraction] 43.6 % Normal 37-47 [facility] Comment on above: Performed By: #### L 500.2500, L501.4020, L100.0100 #### [facility] [address] [place], [address] Hemoglobin (Bld) [Mass/Vol] 14.8 g/dL Normal 12.0-15.0 [facility] Comment on above: Performed By: #### L 500.2500, L501.4020, L100.0100 #### [facility] [address] [place], [address] IG% 0.400 Normal 0.0-0.9 [facility] Comment on above: Result Comment: IG% - Immature Granulocytes (promyelocytes, myelocytes and metamyelocytes) > 1% indicates that a LEFT SHIFT is Present. Performed By: #### L 500.2500, L501.4020, L100.0100 #### [facility] [address] [place], [address] Lymphocytes/100 WBC (Bld) 46.2 % High 19-41 [facility] Comment on above: Performed By: #### L 500.2500, L501.4020, L100.0100 #### [facility] [address] [place], [address] MCH (RBC) [Entitic mass] 29.9 pg Normal 27.0-32.0 [facility] Comment on above: Performed By: #### L 500.2500, L501.4020, L100.0100 #### [facility] [address] [place], [address] MCHC (RBC) [Mass/Vol] 33.9 g/dL Normal 32-36 [facility] Comment on above: Performed By: #### L 500.2500, L501.4020, L100.0100 #### [facility] [address] [place], [address] MCV (RBC) [Entitic vol] 88.1 fL Normal 81-99 [facility] Comment on above: Performed By: #### L 500.2500, L501.4020, L100.0100 #### [facility] [address] [place], [address] Monocytes/100 WBC (Bld) 6.8 % Normal 0-10 [facility] Comment on above: Performed By: #### L 500.2500, L501.4020, L100.0100 #### [facility] [address] [place], [address] Neutrophils/100 WBC (Bld) 44.8 % Low 47-70 [facility] Comment on above: Performed By: #### L 500.2500, L501.4020, L100.0100 #### [facility] [address] [place], [address] Nucleated RBC (Bld) [#/Vol] 0 10*3/uL Normal 0-5 [facility] Comment on above: Performed By: #### L 500.2500, L501.4020, L100.0100 #### [facility] [address] [place], [address] Platelet mean volume (Bld) [Entitic vol] 10.2 fL Normal 6.2-12.0 [facility] Comment on above: Performed By: #### L 500.2500, L501.4020, L100.0100 #### [facility] [address] [place], [address] Platelets (Bld) [#/Vol] 191 10*3/uL Normal 150-450 [facility] Comment on above: Performed By: #### L 500.2500, L501.4020, L100.0100 #### [facility] [address] [place], [address] RBC (Bld) [#/Vol] 4.95 10*6/uL Normal 4.2-5.4 [facility] Comment on above: Performed By: #### L 500.2500, L501.4020, L100.0100 #### [facility] [address] [place], [address] RDW SD 40.9 fl Normal 35.1-43.9 [facility] Comment on above: Performed By: #### L 500.2500, L501.4020, L100.0100 #### [facility] [address] [place], [address] WBC (Bld) [#/Vol] 5.0 10*3/uL Normal 4.4-11.0 [facility] Comment on above: Performed By: #### L 500.2500, L501.4020, L100.0100 #### [facility] [address] [place], [address] Chest 1 View (Portable)on Chest 1 View (Portable) [facility] Imaging Services [address] [place] [address] Chest 1 View (Portable) MR#: [id number] Acct: [id number] Name: ROSEMARIE VASQUEZ Rep #: [id number] : 1965 F 58 From: Princess Golden PCP: Dr. Elda Branham MD Status: [facility] ER Study: Chest 1 View (Portable) Date of Exam: 05/08/24 Exam# [id number] Ordering [place]: [place] [id number] INDICATION: chest pain EXAMINATION/TECHNIQUE: X-RAY - XR Chest 1 View AP portable. 6:53 AM COMPARISON: Prior study dated: 07/24/2023 FINDINGS: LINES/DEVICES: None. LUNGS: No consolidation. No pneumothorax. MEDIASTINUM: Unremarkable. CARDIAC SILHOUETTE: Not enlarged. BONES AND SOFT TISSUES: No acute abnormalities. RAD/Chest 1 View (Portable) IMPRESSION: No evidence of active intrathoracic disease. Electronically Signed: Princess Wilson MD at 7:39 EDT , CC: Dr. Desmond Gamez DO; Dr. 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 Normal [facility] Emergency Department Summary on 05-08-2024 Emergency Department Summary [facility] Medical Records Department [address] [place] [address] Emergency Department Summary 05/08/24 MR#: [id number] Acct: [id number] Name: ROSEMARIE VASQUEZ Rep #: [id number] : 1965 58 From: Desmond Gamez DO PCP: Dr. Elda Branham MD Status:ADM IN Location: [address] History of Present Illness Chief Complaint: Palpitations [...] mg PO DAILY THYROID 07/24/23 Unknown History ([place] Thyroid) metoprolol succinate 25 mg 25 mg [...] Chest x-ra (more content not included)... Normal [facility] H AND P Exam - Hospitaliston 05-08-2024 H&P Exam - Hospitalist [facility] Medical Records Department [address] [place] [address] H P Exam - Hospitalist 05/08/24 1521 MR#: [id number] Acct: [id number] Name: ROSEMARIE VASQUEZ Rep #: [id number] : 1965 58 From: Desmond Miranda DO PCP: Dr. Elda Branham MD Status:ADM IN [id number] HPI - General General Date of Admission: [...] improved but still remains in atrial fibrillation. [facility] Medical History Hyperlipidemia Fatigue Familial hypercholesterolemia due to heterozygous low density lipoprotein (LDL) receptor mutation Osteoarthritis Tachycardia Vitamin D deficiency Atrophic vaginitis Morbid obesity Hypothyroid Atrial fibrillation Syncope Home Medications ???Medication ???Instructions ???Recorded ???Last Taken ???Type thyroid (pork) 60 mg tablet 60 mg PO DAILY THYROID 07/24/23 Unknown History ([place] Thyroid) metoprolol succinate 25 mg 25 mg [...] Respiratory Pa (more content not included)... Normal [facility] L501.4020on 05-08-2024 TROPONIN-I HS 18 pg/mL Normal 3.0-54.0 [facility] Comment on above: Order Comment: Comme nts: SPECIMEN #3'TROP' Serial specimen #1, #2 or #3: 3 Result Comment: Plea se Note: New Test Units and Gender Specific Reference Ranges. For more information see Policy Stat Procedure [place] High Sensitivity Troponin (TNIH) and attachments. Performed By: #### L 501.4020 ####[facility] [address] [place], [address] TROPONIN-I HS 18 pg/mL Normal 3.0-54.0 [facility] Comment on above: Order Comment: Comme nts: SPECIMEN #2 'TROP' Serial specimen #1, #2 or #3: 2 Result Comment: Plea se Note: New Test Units and Gender Specific Reference Ranges. For more information see Policy Stat Procedure [place] High Sensitivity Troponin (TNIH) and attachments. Performed By: #### L 501.4020 #### [facility] [address] [place], [address] TROPONIN-I HS 11 pg/mL Normal 3.0-54.0 [facility] Comment on above: Order Comment: 'TROP ' Serial specimen #1, #2 or #3: 1 Result Comment: Plea se Note: New Test Units and Gender Specific Reference Ranges. For more information see Policy Stat Procedure [place] High Sensitivity Troponin (TNIH) and attachments. Performed By: #### L 500.2500, L501.4020, L100.0100 #### [facility] [address] [place], [address] CBC W/Diff, Automatedon 02-12 Absolute Lymph 2.42 X10 3/uL Normal 0.83-4.51 [facility] Comment on above: Performed By: #### L 500.4050, L501.9520, L100.0100 #### [facility] [address] [place], [address] Absolute Neut 2.5 X10 3/uL Normal 2.0-7.7 [facility] Comment on above: Performed By: #### L 500.4050, [id number], L100.0100 #### [facility] [address] [place], [address] Basophils/100 WBC (Bld) 0.9 % Normal 0-1 [facility] Comment on above: Performed By: #### L 500.4050, L501.9520, L100.0100 #### [facility] [address] [place], [address] Eosinophils/100 WBC (Bld) 1.4 % Normal 0-5 [facility] Comment on above: Performed By: #### L 500.4050, L501.9520, L100.0100 #### [facility] [address] [place], [address] Erythrocyte distribution width (RBC) [Ratio] 12.8 % Normal 11.6-14.6 [facility] Comment on above: Performed By: #### L 500.4050, L501.9520, L100.0100 #### [facility] [address] [place], [address] Hematocrit (Bld) [Volume fraction] 44.0 % Normal 37-47 [facility] Comment on above: Performed By: #### L 500.4050, [id number], L100.0100 #### [facility] [address] [place], [address] Hemoglobin (Bld) [Mass/Vol] 14.4 g/dL Normal 12.0-15.0 [facility] Comment on above: Performed By: #### L 500.4050, [id number], L100.0100 #### [facility] [address] [place], [address] IG% 0.200 Normal 0.0-0.9 [facility] Comment on above: Result Comment: IG% - Immature Granulocytes (promyelocytes, myelocytes and metamyelocytes) > 1% indicates that a LEFT SHIFT is Present. Performed By: #### L 500.4050, L501.9520, L100.0100 #### [facility] [address] [place], [address] Lymphocytes/100 WBC (Bld) 43.8 % High 19-41 [facility] Comment on above: Performed By: #### L 500.4050, [id number], L100.0100 #### [facility] [address] [place], [address] MCH (RBC) [Entitic mass] 28.9 pg Normal 27.0-32.0 [facility] Comment on above: Performed By: #### L 500.4050, [id number], L100.0100 #### [facility] [address] [place], [address] MCHC (RBC) [Mass/Vol] 32.7 g/dL Normal 32-36 [facility] Comment on above: Performed By: #### L 500.4050, [id number], L100.0100 #### [facility] [address] [place], [address] MCV (RBC) [Entitic vol] 88.4 fL Normal 81-99 [facility] Comment on above: Performed By: #### L 500.4050, [id number], L100.0100 #### [facility] [address] [place], [address] Monocytes/100 WBC (Bld) 8.0 % Normal 0-10 [facility] Comment on above: Performed By: #### L 500.4050, [id number], L100.0100 #### [facility] [address] [place], [address] Neutrophils/100 WBC (Bld) 45.7 % Low 47-70 [facility] Comment on above: Performed By: #### L 500.4050, [id number], L100.0100 #### [facility] [address] [place], [address] Nucleated RBC (Bld) [#/Vol] 0 10*3/uL Normal 0-5 [facility] Comment on above: Performed By: #### L 500.4050, [id number], L100.0100 #### [facility] [address] [place], [address] Platelet mean volume (Bld) [Entitic vol] 10.0 fL Normal 6.2-12.0 [facility] Comment on above: Performed By: #### L 500.4050, [id number], L100.0100 #### [facility] [address] [place], [address] Platelets (Bld) [#/Vol] 199 10*3/uL Normal 150-450 [facility] Comment on above: Performed By: #### L 500.4050, [id number], L100.0100 #### [facility] [address] [place], [address] RBC (Bld) [#/Vol] 4.98 10*6/uL Normal 4.2-5.4 [facility] Comment on above: Performed By: #### L 500.4050, [id number], L100.0100 #### [facility] [address] [place], [address] RDW SD 41.4 fl Normal 35.1-43.9 [facility] Comment on above: Performed By: #### L 500.4050, [id number], L100.0100 #### [facility] [address] [place], [address] WBC (Bld) [#/Vol] 5.5 10*3/uL Normal 4.4-11.0 [facility] Comment on above: Performed By: #### L 500.4050, [id number], L100.0100 #### [facility] [address] [place], [address] Comprehensive Metabolic Prof mary ann 02-25-2024 Albumin [Mass/Vol] 4.1 g/dL Normal 3.2-5.0 [facility] Comment on above: Performed By: #### L 500.4050, [id number], L100.0100 #### [facility] [address] [place], [address] Albumin/Globulin [Mass ratio] 1.2 {ratio} Normal 0.9-2.4 [facility] Comment on above: Performed By: #### L 500.4050, [id number], L100.0100 #### [facility] [address] [place], [address] ALK P 76 U/L Normal 45-117 [facility] Comment on above: Performed By: #### L 500.4050, [id number], L100.0100 #### [facility] [address] [place], [address] ALT [Catalytic activity/Vol] 22 U/L Normal 13-56 [facility] Comment on above: Performed By: #### L 500.4050, [id number], L100.0100 #### [facility] [address] [place], [address] AST [Catalytic activity/Vol] 19 U/L Normal 15-37 [facility] Comment on above: Performed By: #### L 500.4050, [id number], L100.0100 #### [facility] [address] [place], [address] Bilirubin [Mass/Vol] 0.50 mg/dL Normal 0.20-1.00 [facility] Comment on above: Result Comment: For patients on eltrombopag therapy, use of Dimension [place] TBIL is not recommended. Performed By: #### L 500.4050, [id number], L100.0100 #### [facility] [address] [place], [address] BUN/CRE 25.4 RATIO High 10-20 [facility] Comment on above: Performed By: #### L 500.4050, [id number], L100.0100 #### [facility] [address] [place], [address] CA,Total 9.1 mg/dL Normal 8.5-10.1 [facility] Comment on above: Performed By: #### L 500.4050, [id number], L100.0100 #### [facility] [address] [place], [address] Chloride [Moles/Vol] 109 mmol/L High 98-107 [facility] Comment on above: Performed By: #### L 500.4050, [id number], L100.0100 #### [facility] [address] [place], [address] CO2 [Moles/Vol] 27.0 mmol/L Normal 21.0-32.0 [facility] Comment on above: Performed By: #### L 500.4050, [id number], L100.0100 #### [facility] [address] [place], [address] Creatinine [Mass/Vol] 0.79 mg/dL Normal 0.55-1.02 [facility] Comment on above: Result Comment: The validity of the calculated GFR GFRAA in patients over 70 years has not been determined. Clinical correlation is essential. Performed By: #### L 500.4050, [id number], L100.0100 #### [facility] [address] [place], [address] EST GFR - AA 96 mL/min Normal >60 [facility] Comment on above: Result Comment: Afri can Ethiopian GFR Calc Performed By: #### L 500.4050, [id number], L100.0100 #### [facility] [address] [place], [address] GAP 6 Normal 5-15 [facility] Comment on above: Performed By: #### L 500.4050, [id number], L100.0100 #### [facility] [address] [place], [address] GFR/1.73 sq M.predicted among non-blacks MDRD (S/P/Bld) [Vol rate/Area] 80 mL/min/{1.73_m2} Normal >60 [facility] Comment on above: Result Comment: Non- GFR Calc Performed By: #### L 500.4050, [id number], L100.0100 #### [facility] [address] [place], [address] Globulin (S) [Mass/Vol] 3.5 g/dL Normal 2.2-4.2 [facility] Comment on above: Performed By: #### L 500.4050, [id number], L100.0100 #### [facility] [address] [place], [address] Glucose [Mass/Vol] 83 mg/dL Normal 74-106 [facility] Comment on above: Performed By: #### L 500.4050, [id number], L100.0100 #### [facility] [address] [place], [address] Potassium [Moles/Vol] 4.2 mmol/L Normal 3.5-5.1 [facility] Comment on above: Performed By: #### L 500.4050, [id number], L100.0100 #### [facility] [address] [place], [address] Sodium [Moles/Vol] 142 mmol/L Normal 136-145 [facility] Comment on above: Performed By: #### L 500.4050, [id number], L100.0100 #### [facility] [address] [place], [address] T PROT 7.6 g/dL Normal 6.4-8.2 [facility] Comment on above: Performed By: #### L 500.4050, [id number], L100.0100 #### [facility] [address] [place], [address] Urea nitrogen [Mass/Vol] 20 mg/dL High 7-18 [facility] Comment on above: Performed By: #### L 500.4050, [id number], L100.0100 #### [facility] [address] [place], [address] Thyroid Stim Hormone (TSH)on 02-25-2024 TSH 0.408 uIU/mL Normal 0.358-3.740 [facility] Comment on above: Performed By: #### L 500.4050, [id number], L100.0100 #### [facility] [address] [place], [address] Absolute lymphocyte countOrd ered By: Elda Branham on 09-03-2023 Lymphocytes Auto (Unsp spec) [#/Vol] 2.31 10*3/uL 0.83-4.51 [facility] Automated lymphocyte count a s percentage of total leukocytesOrdered By: Elda Branham on 09-03-2023 Lymphocytes/100 WBC Auto (Unsp spec) 35.4 % 19-41 [facility] Basophil percentageOrdered B y: Elda Branham on 09-03-2023 Basophils/100 WBC (Bld) 0.8 % 0-1 [facility] Bilirubin [Mass/Vol] 0.50 mg/dL 0.20-1.00 [facility] Comment on above: For patients on eltr ombopag therapy, use of Dimension [place] TBIL is not recommended. Chloride [Moles/Vol] 110 mmol/L 98-107 [facility] Eosinophils/100 WBC (Bld) 0.9 % 0-5 [facility] Glucose [Mass/Vol] 80 mg/dL 74-106 [facility] Hemoglobin (Bld) [Mass/Vol] 14.0 g/dL 12.0-15.0 [facility] Monocytes/100 WBC (Bld) 6.3 % 0-10 [facility] Neutrophils (Bld) [#/Vol] 3.7 10*3/uL 2.0-7.7 [facility] Neutrophils/100 WBC (Bld) 56.3 % 47-70 [facility] Potassium [Moles/Vol] 3.7 mmol/L 3.5-5.1 [facility] Protein [Mass/Vol] 7.3 g/dL 6.4-8.2 [facility] Sodium [Moles/Vol] 143 mmol/L 136-145 [facility] WBC (Bld) [#/Vol] 6.5 10*3/uL 4.4-11.0 [facility] Determination of erythrocyte mean corpuscular volume (MCV)Ordered By: Elda Branham on 09-03-2023 MCV (RBC) [Entitic vol] 87.3 fL 81-99 [facility] Erythrocyte distribution wid th ratioOrdered By: Elda Branham on 09-03-2023 Erythrocyte distribution width (RBC) [Ratio] 12.9 % 11.6-14.6 [facility] Erythrocyte distribution wid th standard deviationOrdered By: Elda Branham on 09-03-2023 Erythrocyte distribution width (RBC) [Entitic vol] 40.5 fL 35.1-43.9 [facility] Hematocrit Auto (Bld) [Volum e fraction]Ordered By: Elda Branham on 09-03-2023 Hematocrit (Bld) [Volume fraction] 42.5 % 37-47 [facility] Immature granulocytes/100 WB C Auto (Bld)Ordered By: Elda Branham on 09-03-2023 Immature granulocytes/100 WBC (Bld) 0.300 % 0.0-0.9 [facility] Comment on above: IG% - Immature Granu locytes (promyelocytes, myelocytes and metamyelocytes) > 1% indicates that a LEFT SHIFT is Present. Laboratory - Chemistry and C hemistry - challengeOrdered By: Elda Branham on 09-03-2023 Albumin/Globulin [Mass ratio] 1.3 {ratio} 0.9-2.4 [facility] ALP [Catalytic activity/Vol] 77 U/L 45-117 [facility] ALT [Catalytic activity/Vol] 16 U/L 13-56 [facility] CO2 [Moles/Vol] 26.0 mmol/L 21.0-32.0 [facility] Globulin (S) [Mass/Vol] 3.2 g/dL 2.2-4.2 [facility] Urea nitrogen/Creatinine [Mass ratio] 17.1 mg/mg 10-20 [facility] - Hematology and Cell countsOrdered By: Elda Branham on 09-03-2023 MCH (RBC) [Entitic mass] 28.7 pg 27.0-32.0 [facility] MCHC (RBC) [Mass/Vol] 32.9 g/dL 32-36 [facility] Nucleated RBC/100 WBC (Bld) [Ratio] 0 % 0-5 [facility] Platelet mean volume (Bld) [Entitic vol] 10.2 fL 6.2-12.0 [facility] Platelets (Bld) [#/Vol] 188 10*3/uL 150-450 [facility] No Panel InformationOrdered By: Elda Branham on 09-03-2023 Estimated GFR (MDRD) Amer 85 mL/min >60 [facility] Comment on above: GFR Calc Estimated GFR (MDRD) Non-Af Amer 71 mL/min >60 [facility] Comment on above: Non- GFR Calc RBC Auto (Bld) [#/Vol]Ordere d By: Elda Branham on 09-03-2023 RBC (Bld) [#/Vol] 4.87 10*6/uL 4.2-5.4 [facility] Serum or plasma calcium vinicius urement (mass/volume)Ordered By: Elda Branham on 09-03-2023 Calcium [Mass/Vol] 9.1 mg/dL 8.5-10.1 [facility] r [facility] Serum or plasma creatinine m easurement (mass/volume)Ordered By: Elda Branham on 09-03-2023 Creatinine [Mass/Vol] 0.88 mg/dL 0.55-1.02 [facility] Comment on above: The validity of the calculated GFR & GFRAA in patients over 70 years has not been determined. Clinical correlation is essential. Serum or plasma thyroid stim ulating hormone (TSH) measurement (units/volume)Ordered By: Elda Branham on 09-03-2023 TSH Qn 0.43 uIU/mL 0.358-3.74 [facility] Serum or plasma urea nitroge n measurement (mass/volume)Ordered By: Elda Branham on 09-03-2023 Urea nitrogen [Mass/Vol] 15 mg/dL 7-18 [facility] Thin prep Papanicolaou smear with manual screeningOrdered By: [facility] on 09-03-2023 Thin prep Papanicolaou smear with manual screening 4.1 g/dL 3.2-5.0 [facility] Thin prep Papanicolaou smear with manual screening 15 U/L 15-37 [facility] Thin prep Papanicolaou smear with manual screening 7 5-15 [facility] Absolute lymphocyte countOrd ered By: Quinn Arnold on 07-25-2023 Lymphocytes Auto (Unsp spec) [#/Vol] 1.69 10*3/uL 0.83-4.51 [facility] Basophil percentageOrdered B y: Quinn Arnold on 07-25-2023 Basophil percentage 3.3 mg/dL 2.5-4.9 [facility] Basophils/100 WBC (Bld) 0.7 % 0-1 [facility] Chloride [Moles/Vol] 117 mmol/L 98-107 [facility] Eosinophils/100 WBC (Bld) 1.4 % 0-5 [facility] Glucose [Mass/Vol] 91 mg/dL 74-106 [facility] Neutrophils (Bld) [#/Vol] 3.6 10*3/uL 2.0-7.7 [facility] Neutrophils/100 WBC (Bld) 61.4 % 47-70 [facility] Potassium [Moles/Vol] 3.8 mmol/L 3.5-5.1 [facility] Sodium [Moles/Vol] 146 mmol/L 136-145 [facility] WBC (Bld) [#/Vol] 5.9 10*3/uL 4.4-11.0 [facility] Blood erythrocytes count (nu mber/volume)Ordered By: Quinn Arnold on 07-25-2023 RBC (Bld) [#/Vol] 4.22 10*6/uL 4.2-5.4 [facility] Blood hemoglobin measurement (mass/volume)Ordered By: Quinn Arnold on 07-25-2023 Hemoglobin (Bld) [Mass/Vol] 12.3 g/dL 12.0-15.0 [facility] Blood lymphocytes/100 leukoc ytesOrdered By: Quinn Arnold on 07-25-2023 Lymphocytes/100 WBC (Bld) 28.5 % 19-41 [facility] Blood monocytes/100 leukocyt esOrdered By: Quinn Arnold on 07-25-2023 Monocytes/100 WBC (Bld) 7.8 % 0-10 [facility] Blood platelet mean volumeOr dered By: Quinn Arnold on 07-25-2023 Platelet mean volume (Bld) [Entitic vol] 10.7 fL 6.2-12.0 [facility] Determination of erythrocyte mean corpuscular volume (MCV)Ordered By: Quinn Arnold on 07-25-2023 MCV (RBC) [Entitic vol] 88.4 fL 81-99 [facility] Hematocrit Auto (Bld) [Volum e fraction]Ordered By: Quinn Arnold on 07-25-2023 Hematocrit (Bld) [Volume fraction] 37.3 % 37-47 [facility] - Chemistry and C hemistry - challengeOrdered By: Quinn Arnold on 07-25-2023 CO2 [Moles/Vol] 22.0 mmol/L 21.0-32.0 [facility] Magnesium [Mass/Vol] 2.1 mg/dL 1.6-2.6 [facility] Urea nitrogen/Creatinine [Mass ratio] 15.8 mg/mg 10-20 [facility] - Hematology and Cell countsOrdered By: Quinn Arnold on 07-25-2023 Erythrocyte distribution width (RBC) [Entitic vol] 42.5 fL 35.1-43.9 [facility] Erythrocyte distribution width (RBC) [Ratio] 13.2 % 11.6-14.6 [facility] Immature granulocytes/100 WBC (Bld) 0.200 % 0.0-0.9 [facility] Comment on above: IG% - Immature Granu locytes (promyelocytes, myelocytes and metamyelocytes) > 1% indicates that a LEFT SHIFT is Present. MCH (RBC) [Entitic mass] 29.1 pg 27.0-32.0 [facility] Nucleated RBC/100 WBC (Bld) [Ratio] 0 % 0-5 [facility] MCHC Auto (RBC) [Mass/Vol]Or dered By: Quinn Arnold on 07-25-2023 MCHC (RBC) [Mass/Vol] 33.0 g/dL 32-36 [facility] No Panel InformationOrdered By: Quinn Arnold on 07-25-2023 Estimated Creatinine Clearance Calc 81.93 ml/min [facility] Estimated GFR (MDRD) Amer 92 mL/min >60 [facility] Comment on above: GFR Calc Estimated GFR (MDRD) Non-Af Amer 76 mL/min >60 [facility] Comment on above: Non- GFR Calc Platelets bldOrdered By: Oscar Arnold on 07-25-2023 Platelets (Bld) [#/Vol] 190 10*3/uL 150-450 [facility] Serum or plasma calcium vinicius urement (mass/volume)Ordered By: Quinn Arnold on 07-25-2023 Calcium [Mass/Vol] 8.7 mg/dL 8.5-10.1 [facility] Serum or plasma creatinine m easurement (mass/volume)Ordered By: Quinn Arnold on 07-25-2023 Creatinine [Mass/Vol] 0.82 mg/dL 0.55-1.02 [facility] Comment on above: The validity of the calculated GFR & GFRAA in patients over 70 years has not been determined. Clinical correlation is essential. Serum or plasma urea nitroge n measurement (mass/volume)Ordered By: Quinn Arnold on 07-25-2023 Urea nitrogen [Mass/Vol] 13 mg/dL 7-18 [facility] Thin prep Papanicolaou smear with manual screeningOrdered By: Quinn Arnold on 07-25-2023 Thin prep Papanicolaou smear with manual screening 7 5-15 [facility] INR in Blood by Coagulation assayOrdered By: Jose Maria Smith on 07-24-2023 INR Coag (Bld) [Relative time] 1.0 {INR} [facility] - Chemistry and C hemistry - challengeOrdered By: Quinn Arnold on 07-24-2023 Natriuretic peptide B (Bld) [Mass/Vol] 442.7 pg/mL 0-100 [facility] - CoagulationOrde red By: Jose Maria Smith on 07-24-2023 aPTT Coag (Bld) [Time] 27.1 s 24.1-36.2 [facility] PT Coag (PPP) [Time] 13.3 s 11.7-14.9 [facility] No Panel InformationOrdered By: Quinn Arnold on 07-24-2023 Troponin I High Sensitivity 5 pg/mL 3.0-54.0 [facility] Comment on above: Please Note: New [place] t Units and Gender Specific Reference Ranges. For more information see Policy Stat Procedure [place] High Sensitivity Troponin (TNIH) and attachments. D-Dimer Quantitative (PE/DVT) 0.69 FEU/ug/m 0.27-0.49 [facility] Comment on above: D-Dimer ELEVATED (>0 .49): Additional studies and clinicalassessments are indicated to conclude diagnosis of:Deep Vein Thrombosis (DVT) or Pulmonary Embolism (PE) No Panel InformationOrdered By: Jose Maria Smith on 07-24-2023 Thyroid Stimulating Hormone (TSH) 0.92 uIU/mL 0.358-3.74 [facility] Absolute lymphocyte countOrd ered By: Elda Branham on 02-21-2023 Lymphocytes Auto (Unsp spec) [#/Vol] 2.02 10*3/uL 0.83-4.51 [facility] Basophil percentageOrdered B y: Elda Branham on 02-21-2023 Basophils/100 WBC (Bld) 0.8 % 0-1 [facility] Bilirubin [Mass/Vol] 0.40 mg/dL 0.20-1.00 [facility] Comment on above: For patients on eltr ombopag therapy, use of Dimension [place] TBIL is not recommended. Chloride [Moles/Vol] 111 mmol/L 98-107 [facility] Eosinophils/100 WBC (Bld) 1.3 % 0-5 [facility] Glucose [Mass/Vol] 108 mg/dL 74-106 [facility] Comment on above: Fasting Glucose resu lt from 100 to 125 mg/dL suggests IMPAIRED HOMEOSTASIS per A.D.A. criteria. Neutrophils (Bld) [#/Vol] 2.3 10*3/uL 2.0-7.7 [facility] Neutrophils/100 WBC (Bld) 47.7 % 47-70 [facility] Potassium [Moles/Vol] 3.8 mmol/L 3.5-5.1 [facility] Protein [Mass/Vol] 7.2 g/dL 6.4-8.2 [facility] Sodium [Moles/Vol] 143 mmol/L 136-145 [facility] WBC (Bld) [#/Vol] 4.7 10*3/uL 4.4-11.0 [facility] Blood erythrocytes count (nu mber/volume)Ordered By: Elda Branham on 02-21-2023 RBC (Bld) [#/Vol] 4.65 10*6/uL 4.2-5.4 [facility] Blood hemoglobin measurement (mass/volume)Ordered By: Elda Branham on 02-21-2023 Hemoglobin (Bld) [Mass/Vol] 13.8 g/dL 12.0-15.0 [facility] Blood lymphocytes/100 leukoc ytesOrdered By: Elda Branham on 02-21-2023 Lymphocytes/100 WBC (Bld) 42.8 % 19-41 [facility] Blood monocytes/100 leukocyt esOrdered By: Elda Branham on 02-21-2023 Monocytes/100 WBC (Bld) 7.2 % 0-10 [facility] Blood platelet mean volumeOr dered By: Elda Branham on 02-21-2023 Platelet mean volume (Bld) [Entitic vol] 10.2 fL 6.2-12.0 [facility] Determination of erythrocyte mean corpuscular volume (MCV)Ordered By: Elda Branham on 02-21-2023 MCV (RBC) [Entitic vol] 90.1 fL 81-99 [facility] Hematocrit Auto (Bld) [Volum e fraction]Ordered By: Elda Branham on 02-21-2023 Hematocrit (Bld) [Volume fraction] 41.9 % 37-47 [facility] - Chemistry and C hemistry - challengeOrdered By: Elda Branham on 02-21-2023 ALP [Catalytic activity/Vol] 70 U/L 45-117 [facility] ALT [Catalytic activity/Vol] 21 U/L 13-56 [facility] CO2 [Moles/Vol] 25.0 mmol/L 21.0-32.0 [facility] Globulin (S) [Mass/Vol] 3.3 g/dL 2.2-4.2 [facility] Urea nitrogen/Creatinine [Mass ratio] 18.8 mg/mg 10-20 [facility] - Hematology and Cell countsOrdered By: Elda Branham on 02-21-2023 Erythrocyte distribution width (RBC) [Entitic vol] 41.3 fL 35.1-43.9 [facility] Erythrocyte distribution width (RBC) [Ratio] 12.6 % 11.6-14.6 [facility] Immature granulocytes/100 WBC (Bld) 0.200 % 0.0-0.9 [facility] Comment on above: IG% - Immature Granu locytes (promyelocytes, myelocytes and metamyelocytes) > 1% indicates that a LEFT SHIFT is Present. MCH (RBC) [Entitic mass] 29.7 pg 27.0-32.0 [facility] Nucleated RBC/100 WBC (Bld) [Ratio] 0 % 0-5 [facility] MCHC Auto (RBC) [Mass/Vol]Or dered By: Elda Branham on 02-21-2023 MCHC (RBC) [Mass/Vol] 32.9 g/dL 32-36 [facility] No Panel InformationOrdered By: Elda Branham on 02-21-2023 Estimated GFR (MDRD) Amer 95 mL/min >60 [facility] Comment on above: GFR Calc Estimated GFR (MDRD) Non-Af Amer 79 mL/min >60 [facility] Comment on above: Non- GFR Calc Thyroid Stimulating Hormone (TSH) 0.33 uIU/mL 0.358-3.74 [facility] Platelets bldOrdered By: Elda Branham on 02-21-2023 Platelets (Bld) [#/Vol] 189 10*3/uL 150-450 [facility] Serum or plasma albumin vinicius urement (mass/volume)Ordered By: Elda Branham on 02-21-2023 Albumin [Mass/Vol] 3.9 g/dL 3.2-5.0 [facility] Serum or plasma albumin/glob ulin mass ratioOrdered By: Elda Branham on 02-21-2023 Albumin/Globulin [Mass ratio] 1.2 {ratio} 0.9-2.4 [facility] Serum or plasma calcium vinicius urement (mass/volume)Ordered By: Elda Branham on 02-21-2023 Calcium [Mass/Vol] 8.9 mg/dL 8.5-10.1 [facility] Serum or plasma creatinine m easurement (mass/volume)Ordered By: Elda Branham on 02-21-2023 Creatinine [Mass/Vol] 0.80 mg/dL 0.55-1.02 [facility] Comment on above: The validity of the calculated GFR & GFRAA in patients over 70 years has not been determined. Clinical correlation is essential. Serum or plasma urea nitroge n measurement (mass/volume)Ordered By: Elda Branham on 02-21-2023 Urea nitrogen [Mass/Vol] 15 mg/dL 7-18 [facility] Thin prep Papanicolaou smear with manual screeningOrdered By: Elda Branham 02-21-2023 Thin prep Papanicolaou smear with manual screening 18 U/L 15-37 [facility] Thin prep Papanicolaou smear with manual screening 7 5-15 [facility] US THYROIDon 02-21-2023 [address] [place] [address] Patient: ROSEMARIE VASQUEZ Phone#: : 1965 Age: 57 Gender: F Pt. Type: Out Account: [id number] Location: Ordering: JD ROGEL Exam Date: 02/21/2023/8:16 Family Phys: ELDA BRANHAM Charge Code: 350552 Physician: Walsh Order #: [id number] Dose#: PROCEDURE: THYROID ULTRASOUND COMPARISON: None. INDICATIONS: [...] Saavedra MD on 02/21/2023 at 11:40 Normal [place] Absolute lymphocyte countOrd ered By: Dr. Branham on 08-30-2022 Lymphocytes Auto (Unsp spec) [#/Vol] 1.95 10*3/uL 0.83-4.51 [facility] Basophil percentageOrdered B y: Dr. Branham on 08-30-2022 Basophils/100 WBC (Bld) 0.9 % 0-1 [facility] Bilirubin [Mass/Vol] 0.50 mg/dL 0.20-1.00 [facility] Comment on above: For patients on eltr ombopag therapy, use of Dimension [place] TBIL is not recommended. Chloride [Moles/Vol] 110 mmol/L 98-107 [facility] Eosinophils/100 WBC (Bld) 1.7 % 0-5 [facility] Glucose [Mass/Vol] 84 mg/dL 74-106 [facility] Neutrophils (Bld) [#/Vol] 2.8 10*3/uL 2.0-7.7 [facility] Neutrophils/100 WBC (Bld) 53.0 % 47-70 [facility] Potassium [Moles/Vol] 4.2 mmol/L 3.5-5.1 [facility] Protein [Mass/Vol] 7.7 g/dL 6.4-8.2 [facility] Sodium [Moles/Vol] 142 mmol/L 136-145 [facility] WBC (Bld) [#/Vol] 5.3 10*3/uL 4.4-11.0 [facility] Blood erythrocytes count (nu mber/volume)Ordered By: Dr. Branham on 08-30-2022 RBC (Bld) [#/Vol] 4.85 10*6/uL 4.2-5.4 [facility] Blood hemoglobin measurement (mass/volume)Ordered By: Dr. Branham on 08-30-2022 Hemoglobin (Bld) [Mass/Vol] 14.4 g/dL 12.0-15.0 [facility] Blood lymphocytes/100 leukoc ytesOrdered By: Dr. Branham on 08-30-2022 Lymphocytes/100 WBC (Bld) 36.8 % 19-41 [facility] Blood monocytes/100 leukocyt esOrdered By: Dr. Branham on 08-30-2022 Monocytes/100 WBC (Bld) 7.4 % 0-10 [facility] Blood platelet mean volumeOr dered By: Dr. Branham on 08-30-2022 Platelet mean volume (Bld) [Entitic vol] 10.9 fL 6.2-12.0 [facility] Determination of erythrocyte mean corpuscular volume (MCV)Ordered By: Dr. Branham on 08-30-2022 MCV (RBC) [Entitic vol] 90.5 fL 81-99 [facility] Hematocrit Auto (Bld) [Volum e fraction]Ordered By: Dr. Branham on 08-30-2022 Hematocrit (Bld) [Volume fraction] 43.9 % 37-47 [facility] Laboratory - Chemistry and C hemistry - challengeOrdered By: Dr. Branhma on 08-30-2022 ALP [Catalytic activity/Vol] 77 U/L 45-117 [facility] ALT [Catalytic activity/Vol] 26 U/L 13-56 [facility] CO2 [Moles/Vol] 25.0 mmol/L 21.0-32.0 [facility] Globulin (S) [Mass/Vol] 3.5 g/dL 2.2-4.2 [facility] Urea nitrogen/Creatinine [Mass ratio] 25.0 mg/mg 10-20 [facility] Laboratory - Hematology and Cell countsOrdered By: Dr. Branham on 08-30-2022 Erythrocyte distribution width (RBC) [Entitic vol] 41.4 fL 35.1-43.9 [facility] Erythrocyte distribution width (RBC) [Ratio] 12.7 % 11.6-14.6 [facility] Immature granulocytes/100 WBC (Bld) 0.200 % 0.0-0.9 [facility] Comment on above: IG% - Immature Granu locytes (promyelocytes, myelocytes and metamyelocytes) > 1% indicates that a LEFT SHIFT is Present. MCH (RBC) [Entitic mass] 29.7 pg 27.0-32.0 [facility] Nucleated RBC/100 WBC (Bld) [Ratio] 0 % 0-5 [facility] MCHC Auto (RBC) [Mass/Vol]Or dered By: Dr. Branham on 08-30-2022 MCHC (RBC) [Mass/Vol] 32.8 g/dL 32-36 [facility] No Panel InformationOrdered By: Dr. Branham on 08-30-2022 Estimated GFR (MDRD) Amer 77 mL/min >60 [facility] Comment on above: GFR Calc Estimated GFR (MDRD) Non-Af Amer 64 mL/min >60 [facility] Comment on above: Non- GFR Calc Thyroid Stimulating Hormone (TSH) 0.52 uIU/mL 0.358-3.74 [facility] Vitamin D 25-Hydroxy 65.4 ng/mL [facility] Comment on above: Vitamin D 25(OH) Sta tus Range Deficiency <20 ng/mL (50nmol/L) Insufficiency 20 - 30 ng/mL (50 - 75 nmol/L) Sufficiency 30 - 100 ng/mL (75 - 250 nmol/L) Toxicity >100 ng/mL (>250 nmol/L) Platelets bldOrdered By: Dr. Branham on 08-30-2022 Platelets (Bld) [#/Vol] 187 10*3/uL 150-450 [facility] Serum or plasma albumin vinicius urement (mass/volume)Ordered By: Dr. Branham on 08-30-2022 Albumin [Mass/Vol] 4.2 g/dL 3.2-5.0 [facility] Serum or plasma albumin/glob ulin mass ratioOrdered By: Dr. Branham on 08-30-2022 Albumin/Globulin [Mass ratio] 1.2 {ratio} 0.9-2.4 [facility] Serum or plasma calcium vinicius urement (mass/volume)Ordered By: Dr. Branham on 08-30-2022 Calcium [Mass/Vol] 9.8 mg/dL 8.5-10.1 [facility] Serum or plasma creatinine m easurement (mass/volume)Ordered By: Dr. Branham on 08-30-2022 Creatinine [Mass/Vol] 0.96 mg/dL 0.55-1.02 [facility] Comment on above: The validity of the calculated GFR & GFRAA in patients over 70 years has not been determined. Clinical correlation is essential. Serum or plasma urea nitroge n measurement (mass/volume)Ordered By: Dr. Branham on 08-30-2022 Urea nitrogen [Mass/Vol] 24 mg/dL 7-18 [facility] Thin prep Papanicolaou smear with manual screeningOrdered By: Dr. Branham on 08-30-2022 Thin prep Papanicolaou smear with manual screening 19 U/L 15-37 [facility] Thin prep Papanicolaou smear with manual screening 7 5-15 [facility] Absolute lymphocyte counton 08-28-2021 Lymphocytes Auto (Unsp spec) [#/Vol] 2.41 10*3/uL 0.83-4.51 [facility] Work Phone: Basophil percentageon 2021 Basophils/100 WBC (Bld) 0.8 % 0-1 [facility] Work Phone: Bilirubin [Mass/Vol] 0.70 mg/dL 0.20-1.00 [facility] Work Phone: Comment on above: For patients on eltr ombopag therapy, use of Dimension [place] TBIL is not recommended. Chloride [Moles/Vol] 112 mmol/L 98-107 [facility] Work Phone: Eosinophils/100 WBC (Bld) 1.8 % 0-5 [facility] Work Phone: Glucose [Mass/Vol] 93 mg/dL 74-106 [facility] Work Phone: Neutrophils (Bld) [#/Vol] 4.5 10*3/uL 2.0-7.7 [facility] Work Phone: Neutrophils/100 WBC (Bld) 58.8 % 47-70 [facility] Work Phone: Potassium [Moles/Vol] 4.2 mmol/L 3.5-5.1 [facility] Work Phone: Protein [Mass/Vol] 7.8 g/dL 6.4-8.2 [facility] Work Phone: Sodium [Moles/Vol] 141 mmol/L 136-145 [facility] Work Phone: WBC (Bld) [#/Vol] 7.7 10*3/uL 4.4-11.0 [facility] Work Phone: Blood erythrocytes count (nu mber/volume)on 08-28-2021 RBC (Bld) [#/Vol] 4.68 10*6/uL 4.2-5.4 [facility] Work Phone: Blood hemoglobin measurement (mass/volume)on 08-28-2021 Hemoglobin (Bld) [Mass/Vol] 14.7 g/dL 12.0-15.0 [facility] Work Phone: Blood lymphocytes/100 leukoc yteson 08-28-2021 Lymphocytes/100 WBC (Bld) 31.3 % 19-41 [facility] Work Phone: Blood monocytes/100 leukocyt eson 08-28-2021 Monocytes/100 WBC (Bld) 6.9 % 0-10 [facility] Work Phone: Blood platelet mean volumeon 08-28-2021 Platelet mean volume (Bld) [Entitic vol] 9.9 fL 6.2-12.0 [facility] Work Phone: Determination of erythrocyte mean corpuscular volume (MCV)on 08-28-2021 MCV (RBC) [Entitic vol] 89.1 fL 81-99 [facility] Work Phone: Hematocrit Auto (Bld) [Volum e fraction]on 08-28-2021 Hematocrit (Bld) [Volume fraction] 41.7 % 37-47 [facility] Work Phone: Laboratory - Chemistry and C hemistry - challengeon 08-28-2021 ALP [Catalytic activity/Vol] 76 U/L 45-117 [facility] Work Phone: ALT [Catalytic activity/Vol] 36 U/L 13-56 [facility] Work Phone: CO2 [Moles/Vol] 27.0 mmol/L 21.0-32.0 [facility] Work Phone: Globulin (S) [Mass/Vol] 3.5 g/dL 2.2-4.2 [facility] Work Phone: Urea nitrogen/Creatinine [Mass ratio] 22.1 mg/mg 10-20 [facility] Work Phone: Laboratory - Hematology and Cell countson 08-28-2021 Erythrocyte distribution width (RBC) [Entitic vol] 41.8 fL 35.1-43.9 [facility] Work Phone: Erythrocyte distribution width (RBC) [Ratio] 12.8 % 11.6-14.6 [facility] Work Phone: Immature granulocytes/100 WBC (Bld) 0.400 % 0.0-0.9 [facility] Work Phone: Comment on above: IG% - Immature Granu locytes (promyelocytes, myelocytes and metamyelocytes) > 1% indicates that a LEFT SHIFT is Present. MCH (RBC) [Entitic mass] 31.4 pg 27.0-32.0 [facility] Work Phone: Nucleated RBC/100 WBC (Bld) [Ratio] 0 % 0-5 [facility] Work Phone: MCHC Auto (RBC) [Mass/Vol]on 08-28-2021 MCHC (RBC) [Mass/Vol] 35.3 g/dL 32-36 [facility] Work Phone: No Panel Informationon 08-28 Estimated GFR (MDRD) Amer 83 mL/min >60 [facility] Work Phone: Comment on above: GFR Calc Estimated GFR (MDRD) Non-Af Amer 69 mL/min >60 [facility] Work Phone: Comment on above: Non- GFR Calc Hepatitis C Antibody Non-Reactive Nonreactive [facility] Work Phone: Comment on above: Non Reactive: < 0.8 Equivocal: >/= 0.8 to < 1.0 Reactive: >/= 1.0The CDC recommends that a reactive/equivocal HCV antibody result be followed up by the HCV Nucleic Acid Amplificationtest (752494) Thyroid Stimulating Hormone (TSH) 1.29 uIU/mL 0.358-3.74 [facility] Work Phone: Vitamin D 25-Hydroxy 49.9 ng/mL [facility] Work Phone: Comment on above: Vitamin D 25(OH) Sta tus Range Deficiency <20 ng/mL (50nmol/L) Insufficiency 20 - 30 ng/mL (50 - 75 nmol/L) Sufficiency 30 - 100 ng/mL (75 - 250 nmol/L) Toxicity >100 ng/mL (>250 nmol/L) Platelets bldon 08-28-2021 Platelets (Bld) [#/Vol] 197 10*3/uL 150-450 [facility] Work Phone: Serum or plasma albumin vinicius urement (mass/volume)on 08-28-2021 Albumin [Mass/Vol] 4.3 g/dL 3.2-5.0 [facility] Work Phone: Serum or plasma albumin/glob ulin mass ratioon 08-28-2021 Albumin/Globulin [Mass ratio] 1.2 {ratio} 0.9-2.4 [facility] Work Phone: Serum or plasma calcium vinicius urement (mass/volume)on 08-28-2021 Calcium [Mass/Vol] 9.2 mg/dL 8.5-10.1 [facility] Work Phone: Serum or plasma creatinine m easurement (mass/volume)on 08-28-2021 Creatinine [Mass/Vol] 0.90 mg/dL 0.55-1.02 [facility] Work Phone: Comment on above: The validity of the calculated GFR & GFRAA in patients over 70 years has not been determined. Clinical correlation is essential. Serum or plasma urea nitroge n measurement (mass/volume)on 08-28-2021 Urea nitrogen [Mass/Vol] 20 mg/dL 7-18 [facility] Work Phone: Thin prep Papanicolaou smear with manual screeningon 08-28-2021 Thin prep Papanicolaou smear with manual screening 28 U/L 15-37 [facility] Work Phone: Thin prep Papanicolaou smear with manual screening 2 5-15 [facility] Work Phone: CNOVon 12-05-2017 CNOV Office Visit (WOOB) ROSEMARIE VASQUEZ ([id number]) 1965 F Date Time Provider Department 12/05/17 11:00 AM JESSI CUBA During your visit today, we recorded the following information about you: Blood pressure Weight 136/80 87.7 kg Jessi Cuba MD 12/05/2017 4:24 PM Signed Rosemarie Vasquez is a 52 year old female who presents for PMB. HPI: Patient presents with PMB. She had a testerosterone AND estrogen pellet injected by a provider in [facility]. Patient reports the pellets were placed November [...] cancer She plans to f/u with the therapist physical who prescribed the medications eJssi Cuba MD Referring Provider: SELF [200] Allergies [...] of cervix [Z12.4] Order(s): FEMALE PELVIS TRANSVAG [[id number]] Order #: [id number] FUTURE FEMALE PELVIS TRANSABD LTD [[id number]] Order #: [id number] FUTURE PAP FLUID CERVICAL SCREENING [[id number]] Order #: [id number] Prescriptions as of 12/05/2017 Sig: METOPROLOL TARTRATE [...] by JESSI CUBA MD on 12/05/17 Normal [facility] CYTOLOGYon 12-05-2017 CYTOLOGY ADDENDUM PRESENT Specimen originated from [facility] Specimen #: [id number] Submitting Physician: JESSI CUBA MD SPECIMEN SUBMITTED [...] from every slide are reviewed by a optometrist owner. Olga Liu M.D. (Electronic Signature) ADDENDUM Date [...] developed and its performance characteristics determined by [facility]'s [facility] and [facility] [place] ([facility]). It has not been cleared or approved by the FDA. -[facility] is regulated under CLIA as qualified to perform high-complexity testing. This test is used for clinical purposes. It should not be regarded as investigational or for research. CLINICAL DATA ROUTINE EXAM, HPV Testing: Yes, automatic HPV patients over 30 Date of Last Menstrual Period: Postmenopausal GROSS DESCRIPTION Glacial Acetic Acid added. 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, [address] [place] [address]. The Pap Smear is a screening test for cervical cancer. False negative results occur with all screening tests, emphasizing the need for rescreening at recommended intervals, and clinical correlation. Normal [facility] HPV w/Genotypeon 12-05-2017 HPV HighRisk Other Negative for HPV DNA high risk types: 31,33,35,39,45,51,52,56 ,58,59,66,68 by PCR. Normal [facility] Comment on above: Result Comment: This test was developed and its performance characteristics determined by [facility] and [facility] [place] ([facility]). It has not been cleared or approved by the FDA. -[facility] is regulated under CLIA as qualified to perform high-complexity testing. This test is used for clinical purposes. It should not be regarded as investigational or for research. Performed By: #### H PVHRR #### [facility] [employer] [address] [place] [address] HPV HighRisk Type 16 Negative Normal [facility] Comment on above: Performed By: #### H PVHRR #### [facility] [employer] [facility] [place] [address] HPV HighRisk Type 18 Negative Normal [facility] Comment on above: Performed By: #### H PVHRR #### [facility] [employer] [address] [place] [address] PROGRESSon 12-05-2017 Protein mass conc HNO ID: [id number] Author: Jessi Cuba Service: (none) Author Type: Physician Type: Progress Notes Filed: 12/05/2017 4:24 PM Note Text: Rosemarie Vasquez is a 52 year old female who presents for PMB. HPI: Patient presents with PMB. She had a testerosterone AND estrogen pellet injected by a provider in [facility]. Patient reports the pellets were placed November [...] cancer She plans to f/u with the therapist physical who prescribed the medications Jessi Cuba MD Normal [facility] Vital Signs Date Time Vital Sign Value Performing Clinician Yisseli jessie 12-19-2024 12:07-0400 Diastolic blood pressure 69 mm[Hg] Dr. Elda Branham MD Work Phone: [facility] 12-19-2024 12:07-0400 Heart rate 84 /min Dr. Elda Branham MD Work Phone: [facility] 12-19-2024 12:07-0400 Respiratory rate 18 /min Dr. Elda Branham MD Work Phone: [facility] 12-19-2024 12:07-0400 SaO2% (BldA) [Mass fraction] 96 % Dr. Elda Branham MD Work Phone: [facility] 12-19-2024 12:07-0400 Systolic blood pressure 117 mm[Hg] Dr. Elda Branham MD Work Phone: [facility] 12-19-2024 11:09-0400 Body temperature 98 [degF] Dr. Elda Branham MD Work Phone: [facility] 12-19-2024 10:08-0400 Body height 165.[address] Elda Branham MD Work Phone: 1(645)316-257058 [place] [address] 12-19-2024 10:08-0400 Body mass index (BMI) [Ratio] 31 kg/m2 Dr. Elda Branham MD Work Phone: 1(011)153-112642 [place] [address] 12-19-2024 10:08-0400 Body weight 84.[address] Elda Branham MD Work Phone: 3(677)202-437542 [place] [address] 10-29-2024 14:05-0400 Body mass index (BMI) [Ratio] 30.6 kg/m2 Dr. Elda Branham MD Work Phone: 5(914)266-191842 [place] [address] 10-29-2024 14:05-0400 Body weight 83.[address] Elda Branham MD Work Phone: 8(679)917-090742 [place] [address] 10-29-2024 14:05-0400 Diastolic blood pressure 68 mm[Hg] Dr. Elda Branham MD Work Phone: 3(823)452-021042 [place] [address] 10-29-2024 14:05-0400 Heart rate 89 /min Dr. Elda Branham MD Work Phone: 1(141)551-198342 [place] [address] 10-29-2024 14:05-0400 Respiratory rate 16 /min Dr. Elda Branham MD Work Phone: 4(708)376-639342 [place] [address] 10-29-2024 14:05-0400 Systolic blood pressure 115 mm[Hg] Dr. Elda Branham MD Work Phone: 9(401)282-436242 [place] [address] 09-11-2023 13:00-0500 Body height 165.[address] Elda Branham Work Phone: 7(516)766-145342 [place] [address] 09-11-2023 13:00-0500 Body mass index (BMI) [Ratio] 31.1 kg/m2 Dr. Elda Branham Work Phone: 1(183)598-010742 [place] [address] 09-11-2023 13:00-0500 Body weight 85.[address] Elda Branham Work Phone: 6(271)652-524342 [place] [address] 09-11-2023 13:00-0500 Diastolic blood pressure 76 mm[Hg] Dr. Elda rBanham Work Phone: 4(218)637-760142 [place] [address] 09-11-2023 13:00-0500 Heart rate 82 /min Dr. Elda Branham Work Phone: [facility] 09-11-2023 13:00-0500 Respiratory rate 14 /min Dr. Elda Branham Work Phone: [facility] 09-11-2023 13:00-0500 Systolic blood pressure 119 mm[Hg] Dr. Elda Branham Work Phone: [facility] 07-25-2023 12:34-0500 Heart rate 112 /min Dr. Elda Branham Work Phone: [facility] 07-25-2023 11:15-0500 Body temperature 97.8 [degF] Dr. Elda Branham Work Phone: [facility] 07-25-2023 11:15-0500 Diastolic blood pressure 61 mm[Hg] Dr. Elda Branham Work Phone: [facility] 07-25-2023 11:15-0500 Respiratory rate 20 /min Dr. Elda Branham Work Phone: [facility] 07-25-2023 11:15-0500 SaO2% (BldA) [Mass fraction] 96 % Dr. Elda Branham Work Phone: [facility] 07-25-2023 11:15-0500 Systolic blood pressure 109 mm[Hg] Dr. Elda Branham Work Phone: [facility] 07-24-2023 12:01-0500 Body height 165.[address] Elda Branham Work Phone: [facility] 07-24-2023 12:01-0500 Body mass index (BMI) [Ratio] 31.5 kg/m2 Dr. Elda Branham Work Phone: [facility] 07-24-2023 12:01-0500 Body weight 85.[address] Elda Branham Work Phone: [facility] Encounters Encounter Date Encounter Type Care Provider Facility Start: 12-19-2024 End: 12-19-2024 Emergency department patient visit Dr. Elda Branham MD Work Phone: -Emergency Department Work Phone: Start: 12-10-2024 End: 12-10-[address] Elda Branham MD -Laboratory Work Phone: Start: 12-10-2024 End: 12-10-2024 ambulatory Elda Nelson Branham Facility:[facility] Start: 10-29-2024 End: 10-29-2024 Patient encounter procedure Jenae Ocasio [place] [facility] Work Phone: Start: 10-29-2024 End: 10-29-2024 ambulatory Elda Branham [place] Start: 10-07-2024 End: 10-07-[address] Elda Branham MD Work Phone: [facility] Work Phone: Start: 10-07-2024 End: 10-07-[address] Elda Branham MD -Outpatient Breast Imaging Work Phone: Start: 10-07-2024 End: 10-07-2024 ambulatory Elda Nelson Branham Facility:[facility] Start: 09-08-2024 End: 09-08-[address] Elda Branham MD Work Phone: [facility] Work Phone: Start: 09-08-2024 End: 09-08-[address] Elda Branham MD -Laboratory, Phy Office 3rd Flr Start: 09-08-2024 End: 09-08-2024 ambulatory Elda Nelson Branham Facility:[facility] Start: 05-08-2024 ambulatory Desmond Miranda Facility:[facility] Start: 05-08-2024 End: 05-09-2024 Evaluation and management of inpatient Elda Nelson Adolfo Facility:[facility] Start: 02-25-2024 End: 02-25-2024 ambulatory Elda Chi Adolfo Facility:[facility] Start: 10-07-2023 End: 10-07-[address] Elda Branham Work Phone: [facility] Work Phone: Start: 10-07-2023 End: 10-07-[address] Elda Branham Work Phone: [facility]-Outpatient Breast Imaging Work Phone: Start: 09-11-2023 End: 09-11-[address] Elda Branham Work Phone: [facility] Work Phone: Start: 09-03-2023 End: 09-03-[address] Elda Branham Work Phone: [facility] Work Phone: Start: 09-03-2023 End: 09-03-[address] Elda Branham Work Phone: [facility]-Laboratory, [facility] Office 3rd Flr Start: 07-25-2023 Non-patient / Non-visit Dr. Bill Branham Work Phone: [facility] Work Phone: Start: 07-24-2023 Non-patient / Non-visit Dr. Bill Branham Work Phone: [facility] Start: 07-24-2023 Non-patient / Non-visit Dr. Bill Branham Work Phone: [facility] Work Phone: Start: 07-24-2023 End: 07-25-2023 Evaluation and management of inpatient Dr. Elda Branham Work Phone: [facility]-Progressive Care Unit Work Phone: Start: 02-21-2023 End: 02-21-2023 ambulatory [facility] Work Phone: Start: 02-21-2023 End: 02-21-2023 Patient encounter procedure [facility]-Laboratory, [employer] Office 3rd Flr Start: 02-21-2023 End: 02-21-2023 ambulatory [facility] Start: 08-30-2022 End: 08-30-2022 ambulatory [facility] Work Phone: Start: 08-30-2022 End: 08-30-2022 Patient encounter procedure [facility]-Laboratory, Phy Office 3rd Flr Start: 10-12-2021 End: 10-12-2021 Patient encounter procedure [facility]-Outpatient Breast Imaging Start: 08-28-2021 End: 08-28-2021 Patient encounter procedure [facility]-Laboratory, Phy Office 3rd Flr Start: 12-05-2017 End: 12-06-2017 Patient encounter procedure JESSI CUBA [facility] Procedures Date Procedure Procedure Detail Performing Clinician Start: 12-19-2024 Urnls dip stick/tabl et reagent auto microscopy Dr. Elda Branham MD Work Phone: Start: 12-19-2024 Computed tomography of abdomen and pelvis with intravenous contrast Dr. Elda Branham MD Work Phone: Start: 12-19-[address] Elda Branham MD Work Phone: Start: 10-07-2024 Screening mammography [place] Branham MD Work Phone: Start: 10-07-2023 Screening mammography [place] Branham Work Phone: Start: 07-24-2023 CT angiography of ch est with contrast Dr. Elda Branham Work Phone: Start: 07-24-2023 Plain chest X-ray Dr. Sue Branham Work Phone: Start: 10-12-2021 Screening mammography Plan of Treatment Date Care Activity Detail Author Start: 12-19-2024 [facility] Start: 07-25-2023 Care planning and pr oblem solving actions [facility] Start: 07-25-2023 Patient discharge [facility] Start: 07-25-2023 Care planning and pr oblem solving actions [facility] Start: 07-24-2023 End: 07-25-2023 [facility] Start: 07-24-2023 Ambulation without limitation [facility] Start: 07-24-2023 Assessment of risk o f venous thromboembolism [facility] Start: 07-24-2023 Insertion of cathete r into peripheral vein [facility] Start: 07-24-2023 Measuring intake and output [facility] Start: 07-24-2023 Oxygen therapy [facility] Start: 07-24-2023 Providing care accor ding to standard [facility] Start: 07-24-2023 Following clinical p athway protocol [facility] Start: 07-24-2023 Admission procedure [facility] Start: 07-24-2023 Hospital admission, emergency, from emergency room, medical nature [facility] Start: 07-24-2023 [facility] Patient referral [facility] Work Phone: Payers Date Payer Category Payer Self-pay [id number] 2024 Unknown [id number] 1965 Unknown [id number] Private Health Insurance [facility] [id number] Unknown [id number] Unknown [id number]. 462 Unknown [id number] 2..[id number]. 462 Unknown [id number] 2..[id number]. 462 Unknown [id number] 2..[id number]. 462 Unknown [id number] 2..[id number]. 462 Unknown [id number]. 462 Unknown [id number] 2..[id number]. 462 Unknown [id number] [id number]. 462 Unknown [id number] 2..[id number]. 462 Social History Date Type Detail Facility Tobacco smoking stat us MDIS Unknown if ever smoked [facility] Work Phone: Start: 1965 Sex Assigned At Female [facility] Start: 07-24-2023 End: 09-11-2023 Tobacco smoking status MDIS Unknown if ever smoked [facility] Start: 05-08-2024 End: 12-19-2024 Tobacco smoking status NHIS Never smoked tobacco (finding) [facility] Start: 09-23-2024 End: 10-12-2024 Sex Female (finding) [facility] Functional Status Date Assessment Result Facility 07-25-2023 Functional status Ambulates;Bathroom Priv ilege [facility] Work Phone: Mental Status Date Assessment Result Facility 07-25-2023 Cognitive function Voice/Name [facility] Work Phone: Clinical Notes 07-24-2023 to 12-19-2024 Note Date & Type Note Facility 12-19-2024 Discharge summary [facility] 12-19-2024 Radiology Diagnostic study note [facility] Imaging Services [address], [place] [address] Abdomen/Pelvis W IV Cont ONLY MR#: [id number] Acct: [id number] Name: ROSEMARIE VASQUEZ Rep #: [id number] : 1965 F 59 From: Debbie Mcclelland MD PCP: Dr. Elda Branham MD Status: REG E R Study:Abdomen/Pelvis W IV Cont ONLY Date of E xam: 12/19/24 Exam# [id number] Ordering Dr: Sue Esquivel DO PROCEDURE: ABDOMEN/PELVIS W IV CONT ONLY 12/19/2024 REASON FOR EXAM: RUQ PAIN TECHNIQUE: Abdomen and pelvis CT with intravenous contrast. Coronal and Sagittal reconstruction series were provided. PATIENT PREPARATION: Per protocol ORAL CONTRAST TYPE: None. AMOUNT: mL CONTRAST: Omnipaque 350 VOLUME: 100 mL One or more dose reduction techniques were used (e.g., Automated exposure control, adjustment of the mA and/or kV according to patient size, use of iterative reconstruction technique. COMPARISON: None FINDINGS: Lung bases: Bibasilar atelectasis and scarring. Liver: Slightly heterogenous enhancement. 20 mm left hepatic lobe simple cysts. Gallbladder: No ductal dilation. No cholelithiasis. Spleen: Normal size. Pancreas: Normal size without evidence of mass surrounding inflammation or ductal dilation. Adrenals: Unremarkable. Kidneys: Normal renal sizes. No hydronephrosis. Bladder: Urinary bladder is unremarkable. Reproductive Organs: No pelvic mass. Trace ascites in the posterior cul-de-sac. Bowel: Stomach is unremarkable. No bowel dilation or significant wall thickening. Large colonic stool. Few scattered colonic diverticuli. No evidence of diverticulitis. Appendix: The appendix is not identified. There is no inflammatory process identified in the right lower quadrant to suggest appendicitis. Lymph nodes: No suspicious lymph node enlargement. Vasculature: The abdominal aorta and IVC are normal. Peritoneum / Retroperitoneum: No pneumoperitoneum. Bones: No suspicious osseous lesions. Soft tissue: Unremarkable. CT/Abdomen/Pelvis W IV Cont ONLY IMPRESSION: No acute findings in the abdomen and pelvis. Large colonic stool. Reading Location: [facility] CC: Dr. Elda Branham MD; Dr. 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 Medical Records Department [address] [place] [address] Discharge Summary 05/09/24 1642 MR#: [id number] Acct: [id number] Name: ROSEMARIE VASQUEZ Rep #: [id number] : 1965 58 From: Desmond Miranda DO PCP: Dr. Elda Branham MD Status:ADM IN Location: [place] [address] Providers Date of Admission: 05/08/24 Primary Care Physician: Dr. Elda Branham MD Consultations 05/09/24 11:48 Consult: Cardiology Routine Consulting Provider: Margret Morales Reason for Consult: afib EMERGENT Consult: No MD Notified: Yes Date Notified: 05/09/24 Time Notified: 11:48 Method of Notification: Verbal 05/09/24 12:48 Consult: Cardiology Routine Consulting Provider: Margret Morales Reason for Consult: A-FIB RVR EMERGENT Consult: No MD Notified: Yes Date Notified: 05/09/24 Time Notified: [...] diltiazem drip and wean as tolerated. Her [id number] is 2 so we will resume apixaban. Plan Hypothyroidism: Continue with her thyroid replacement VTE prophylaxis: Not indicated as patient is anticoagulated. Medications at Discharge Home Medications thyroid (pork) 60 mg tablet ([place] Thyroid) 60 mg PO DAILY THYROID 07/24/23 [...] He recommends a follow-up with the the [facility]. Weight / BMI Weight Weight: [...] injector 40 mg subc (more content not included)...[facility]01-11-2024 Discharge summary Author Quinn Arnold [facility] July 25, 2023 11:32am Note Date/Time July 25, 2023 1 1:32am [facility] Medical Records Department [address] [place] [address] Discharge Summary 07/25/23 1122 MR#: [id number] Acct: [id number] Name: ROSEMARIE VASQUEZ Rep #:[id number] : 1965 57 From: Quinn Arnold MD PCP: Dr. Elda Branham MD Status:ADM I N Location: [place] [address] Providers Date of Admission: 07/24/23 Date of [...] ordered 2D echo and Cardizem drip. Patient's [id number] Score for Atrial Fibrillation Stroke Riskwas only 1 patient was therefore placed on only antiplatelet aspirin. ? 07/25/2023;Patient seen heart rate relatively well-controlled. Plan for patient to be discharged home with Cardizem and apixaban for subsequent follow-up with cardiology for possible cardioversion as outpatient 2. Hypothyroidism ? Patient is on [place] Thyroid 3. Class I obesity with BMI of 32 ? Weight loss advised 4. DVT prophylaxis ? Lovenox Time spent in the patient's overall evaluation,decision-making process, review of diagnostic data, adjustment of management, discussion with other providers, nursing nursing and ancillary staff involved in patient's care documentation,40 Minutes Medications at Discharge Home Medications thyroid (pork) 60 mg tablet ([place] Thyroid) 60 mg PO DAILY THYROID 07/24/23 [...] % (Auto) 61.4, Lymph % (Auto) 28.5, Terrell % (Auto) 7.8, Eos % (Auto) 1.4, [...] Mera Hutton MD at 16:55 EST , D/C Instructions Discharge Diet: No restrictions [...] Days Qty: 60 0RF Continued thyroid (pork) [[place] Thyroid] 60 mg tablet 60 mg PO [...] Self Care Charges/Coding Visit Charges Inpatient E&M: 65458 Disch Hosp >30min 07/25/23 1132 <Electronically signed by Quinn Arnold MD> Cosigner Signature (if applicable): CC: Dr. Quinn Arnold MD; Dr. Elda Branham MD~ Signed [facility] Work Phone: 1(232) 193-422901-11-2024 Progress note Author Quinn Arnold [facility] July 25, 2023 10:31am Note Date/Time July 25, 2023 9 :32am [facility] Medical Records Department [address] [place] [address] Progress Note - Hospitalist 07/25/23931 MR#: [id number] Acct: [id number] Name: ROSEMARIE VASQUEZ Rep #:[id number] : 1965 57 From: Quinn Arnold MD PCP: Dr. Elda Branham MD Status:ADM I N Location: [place] [address] Reason for Visit Reason for Visit: Diagnoses [...] % (Auto) 61.3, Lymph % (Auto) 30.1, Terrell % (Auto) 6.7, Eos % (Auto) 1.0, [...] % (Auto) 61.4, Lymph % (Auto) 28.5, Terrell % (Auto) 7.8, Eos % (Auto) 1.4, [...] 10:25 EST Reading Location ID and State: [facility] / [place] , Service support , Venous Doppler Study 07/24/23 14:13 Interpretation Summary No evidence for acute deep venous thrombosis bilateral lower extremities with patent and compressible bilateral great saphenous veins. Ordering Physician: Quinn Arnold Referring Physician: Elda Branham Chi Performed By: Dwain Swann, T Chest CTA 07/24/23 16:00 IMPRESSION: Negative CTA [...] ordered 2D echo and Cardizem drip. Patient's [id number]-CHCc Score for Atrial Fibrillation Stroke Riskwas only 1 patient was therefore placed on only antiplatelet aspirin. ? 07/25/2023;Patient seen heart rate relatively well-controlled. Plan for patient to be discharged home with Cardizem and apixaban for subsequent follow-up with cardiology for possible cardioversion as outpatient 2. Hypothyroidism ? Patient is on [place] Thyroid 3. Class I obesity with BMI of 32 ? Weight loss advised 4. DVT prophylaxis ? Lovenox Time spent in the patient's overall evaluation,decision-making process, review of diagnostic data, adjustment of management, discussion with other providers, nursing nursing and ancillary staff involved in patient's care documentation,40 Minutes Charges/Coding Visit Charges Inpatient E&M: 99144 Subs Hosp L2 07/25/23 1031 <Electronically signed by Quinn Arnold MD> Cosigner Signature (if applicable): CC: ~ Signed [facility] Work Phone: 1(942) 301-477501-10-2024 History and physical note Author Quinn Arnold [facility] July 24, 2023 11:42am Note Date/Time July 24, 2023 1 1:[address] [place] [address] Medical Records Department [address] [place] [address] H&P Exam - Hospitalist 07/24/23 1118 MR#: [id number] Acct: [id number] Name: ROSEMARIE VASQUEZ Rep #:[id number] : 1965 57 From: Quinn Arnold MD PCP: Dr. Elda Branham MD Status:ADM I N Location: [place] [address] HPI - General General Date of Admission: 07/24/23 Date of Service: 07/24/23 Chief Complaint: Lightheadedness HPI Narrative ROSEMARIE VASQUEZ, is a 57 F who presents with lightheadedness. Patient has past medical history significant for hypothyroidism for which patient takes [place] Thyroid. Patient also has history of supraventricular [...] to a monitored bed for further management [facility] Home Medications metoprolol succinate 25 mg tablet,extended release 24 hr 25 mg PO DAILY BLOOD PRESSURE 07/24/23 [History Last Taken Unknown] thyroid (pork) 60 mg tablet ([place] Thyroid) 60 mg PO DAILY THYROID 07/24/23 [...] % (Auto) 61.3, Lymph % (Auto) 30.1, Terrell % (Auto) 6.7, Eos % (Auto) 1.0, [...] ordered 2D echo and Cardizem drip. Patient's ACO7GH7-QTDh Score for Atrial Fibrillation Stroke Riskwas only 1 patient was therefore placed on only antiplatelet aspirin. 2. Hypothyroidism ? Patient is on [place] Thyroid 3. Class I obesity with BMI of 32 ? Weight loss advised 4. DVT prophylaxis ? Lovenox Time spent in the patient's overall evaluation,decision-making process, review of diagnostic data, adjustment of management, discussion with other providers, nursing nursing and ancillary staff involved in patient's care documentation, 55 Minutes Charges/Coding Visit Charges Inpatient E&M: 44461 Init Hosp L2 07/24/23 1142 <Electronically signed by Quinn Arnold MD> Cosigner Signature (if applicable): CC: Dr. Quinn Arnold MD; Dr. Elda Branham MD~ Signed [facility] Work Phone: 1(541) 355-977901-10-2024 Discharge summary Author Jose Maria Smith [facility] July 24, 2023 11:18am Note Date/Time July 24, 2023 9 :52am [facility] Medical Records Department [address] [place] [address] Emergency Department Summary 07/24/23 MR#: [id number] Acct: [id number] Name: ROSEMARIE VASQUEZ Rep #:[id number] : 1965 57 From: Jose Maria Smith MD PCP: Dr. Elda Branham MD Status:REG E R Location: ED HPI History of Present Illness Chief Complaint: Other, [...] but she has never had it. PFSH PFS Home Medications metoprolol succinate 25 mg tablet,extended release 24 hr 25 mg PO DAILY 07/24/23[History Last Taken Unknown] thyroid (pork) 60 mg tablet ([place] Thyroid) 60 mg PO DAILY 07/24/23 [History [...] % (Auto) 61.3 Lymph % (Auto) 30.1 Terrell % (Auto) 6.7 Eos % (Auto) 1.0 [...] Yony Stone MD at 10:25 EST , EKG Initial EKG: Comments: A my [...] ventricular response Disposition Disposition: Acute Care Hospital [facility] What to do if you have Problems For any increased pain, shortness of breath, bleeding, nausea or vomiting, chestpain, or any unexpected problems, contact your Primary Care Provider. Call [facility] ([phone]) or report to the closest Emergency Room. Call 911 if necessary. 07/24/23 1118 <Electronically signed by Jose Maria Smith MD> Cosigner Signature (if applicable): CC: Dr. Elda Branham MD ~ Signed [facility] Work Phone: Consult note Author Angeline Romero [facility] July 25, 2023 4:49pm Note Date/Time July 25, 2023 4 :49pm [facility] Medical Records Department [address] [place] [address] Counseling Note - Pharmacy 07/25/23 1648 MR#: [id number] Acct: [id number] Name: ROSEMARIE VASQUEZ Rep #:[id number] : 1965 57 From: Angeline Romero PCP: Dr. Elda Branham MD Status:ADM I N Y Location: [place] [address] Pharmacy [facility] has performed discharge medication reconciliation [...] Home Medications thyroid (pork) 60 mg tablet ([place] Thyroid) 60 mg PO DAILY THYROID 07/24/23 apixaban 5 mg tablet (Eliquis) 5 mg PO BID 30 days #60 tabs 07/25/23 diltiazem HCl 120 mg capsule,extended release 24 hr 120 mg PO DAILY #6 caps 07/25/23 metoprolol succinate 25 mg tablet,extended release 24 hr 25 mg PO DAILY BLOOD PRESSURE #60 tabs 07/25/23 07/25/23 1649 <Electronically signed by Angeline Romero> Date _ Angeline Monique Signature (if applicable): Date CC: ~ Signed [facility] Work Phone: Discharge summary Author Freddie Esquivel [facility] Note Date/Time December 19, 2024 12:24 pm [facility] Medical Records Department [address] [place] [address] Emergency Department Summary 12/19/24 MR#: [id number] Acct: [id number] Name: ROSEMARIE VASQUEZ Rep #:[id number] : 1965 59 From: Freddie Esquivel DO PCP: Dr. Elda Branham MD Status:REG E R Location: ED HPI History of Present Illness Chief Complaint: Flank Pain Narrative Narrative: Patient is a 59-year-old female with past medical history of atrial fibrillation, hypothyroidism, hypercholesteremia who presents to the emergency department the chief complaint of right flank pain. Patient states that yesterday she developed pain that had progressively worsened prompting her to come here for further evaluation management. Patient notes that she feels that she has a kidney stone although she has no history of this. States that she recently started a estrogen medication and noted that when she looked this up that this medication can cause kidney stones. Patient denies any painful urination, blood in her urine. Patient states that her pain in her back radiates to the front portion of her abdomen. She states that she has been eating and drinking normally. Patient states that she has been passing gas. States that she has had previous abdominal surgeries including 3 C-sections and abdominoplasty. [facility] Medical History Hyperlipidemia Atrial fibrillation Fatigue Familial hypercholesterolemia due to heterozygous low density lipoprotein (LDL) receptor mutation Osteoarthritis Tachycardia Vitamin D deficiency Atrophic vaginitis Morbid obesity Hypothyroid Syncope Home Medications ?Medication ?Instructions ?Recorded ?Last Taken ?Type thyroid (pork) 60 mg tablet 60 mg PO DAILY THYROID 05/07 Unknown History ([place] Thyroid) cholecalciferol (vitamin D3) 25 25 mcg PO DAILY supple ment 08/14/23 Unknown History mcg (1,000 unit) capsule metoprolol tartrate 25 mg tablet 25 mg PO BID #60 tabs 05/09/24 Unknown Rx aspirin 81 mg tablet,delayed 81 mg PO DAILY #1 TAB Unknown Rx release (Adult Aspirin Regimen) conjugated estrogens 0.625 mg/gram 1 vaginal 2XW 10/29 Unknown History vaginal cream (Premarin) semaglutide (weight loss) 0.25 0.25 mg subcut QWEEK Unknown History mg/0.5 mL subcutaneous pen injector (Wegovy) dicyclomine 20 mg tablet 20 mg PO TID #20 tabs Unknown Rx docusate sodium 100 mg capsule 100 mg PO DAILY #20 cap s 12/19/24 Unknown Rx (Colace) ondansetron 4 mg disintegrating 4 mg PO Q6H PRN nausea and 12/19/24 Unknown Rx tablet vomiting #20 tabs Allergy/AdvReac Type Severity Reaction Status Date / Time No Known Allergies Allergy Verified 12/19/24 10:10 Family History Brother Heart failure Mother Hepatitis a without hepatic coma Brother Afib Sister Afib Father Cancer Surgical History Hx of abdominoplasty Hx of thyroidectomy Social History Smoking Status: Never smoker alcohol intake: never substance use type: does not use caffeine: Yes Type: coffee Number of servings: 2 ROS ROS ED ROS Narrative Constitutional: Denies fevers, chills, headaches Eyes: Denies change in vision double and blurry vision Cardiovascular: Denies chest pain Respiratory: Shortness of breath Abdomen: Complains of abdominal pain as noted above denies vomiting or diarrhea states that she is passing gas, patient states that eating does not exacerbate her abdominal pain : Denies painful urination, hematuria, polyuria Neurological: Denies numbness, wheeze, tingling Musculoskeletal: Complains of right flank pain as noted above Skin: Denies any rashes or lesions EXAM Physical Exam Narrative Exam Narrative: General: Patient is lying in bed rest comfortably did not appear to be acute distress Head: Atraumatic, normocephalic Eyes: PERRL bilaterally, EOMI bilateral, no conjunctival injection noted Neck: Soft and supple, trachea midline Cardiovascular: Regular rate and rhythm Respiratory: Clear to auscultation bilaterally Abdomen: Soft, nondistended, tenderness palpation the right upper quadrant in the epigastric region no rebound or guarding on exam Musculoskeletal: No CVA tenderness on exam Extremities: +5/5 strength in the bilateral upper and lower extremities, radial pulses +2/4 in the bilateral extremities Neurological: Patient follow commands knew that she was at [facility] the year is 2024 Skin: Warm, dry, tact no rashes lesions noted Const Vital Signs: 12/19/24 10:08 12/19/24 11:09 12/19/24 12:07 Temperature 97.9 F 98 F Temperature Source Temporal Oral Pulse Rate 86 80 84 Respiratory Rate 15 16 18 Blood Pressure 127/87 H 134/84 H 117/69 Blood Pressure Mean 100 100 85 Pulse Ox 97 99 96 Oxygen Delivery Method Room Air Room Air MDM MDM MDM Narrative Medical decision making narrative: Patient is a 59-year-old female who presented to the emergency department the chief complaint of right flank pain. On the differential diagnose includes but not limited to UTI, pyelonephritis, urolithiasis, cholecystitis, pancreatitis. Once workup is obtained reviewed she will be reevaluated. Patient will be givenIV fluids morphine Zofran. Patient CBC reviewed showed no evidence leukocytosis white blood count was 6.4, hemoglobin 13.1, platelet count was 173. Patient sodium was 139, potassium normal 3.9, creatinine was 0.78. Patient AST and ALT were 15 and 8 respectively. Patient's lipase normal at 50, urinalysis reviewed showed no evidence of infection. Patient CT abdomen pelvis with IV contrast reviewed and showed no acute findings there is a large colonic stool. On reevaluation the patient she is feeling better she would like to go home at this point time. Patient was advised to use MiraLAX twice daily until having adequate bowel movements she also be placed on Colace. Patient will be given prescriptions for Bentyl and Zofran. She is advised to return with worsening symptoms or concerns. She is advised to follow-up with her primary care physician outpatient setting as well. She is encouraged return with any other concerns all question concerns answered she was discharged home in stable condition. Significant other bedside is also agreeable this plan. Lab Data Labs: Laboratory Results - last 24 hr 12/19/24 12/19/24 10:33 11:15 WBC 6.4 RBC 4.30 Hgb 13.1 Hct 38.4 MCV 89.3 MCH 30.5 MCHC 34.1 RDW Std Deviation 42.7 RDW Coeff of Rich 13.0 Plt Count 173 MPV 9.6 Immature Gran % (Auto) 0.300 Neut % (Auto) 69.2 Lymph % (Auto) 23.2 Terrell % (Auto) 5.9 Eos % (Auto) 0.8 Baso % (Auto) 0.6 Absolute Neuts (auto) 4.4 Absolute Lymphs (auto) 1.49 Nucleated RBC % 0 Sodium 139 Potassium 3.9 Chloride 107 Carbon Dioxide 21.6 Anion Gap 10 BUN 11 Creatinine 0.78 Estim Creat Clear Calc 83.43 Est GFR (MDRD) Non-Af 88 BUN/Creatinine Ratio 14.2 Glucose 95 Calcium 8.9 Total Bilirubin 0.55 AST 15 ALT 8 Alkaline Phosphatase 49 Total Protein 6.7 Albumin 4.3 Globulin 2.4 Albumin/Globulin Ratio 1.8 Lipase 50 Urine Color Yellow Urine Clarity Sl. Cloudy Urine pH 6.5 Ur Specific [place] 1.010 Urine Protein Negative Urine Glucose (UA) Normal Urine Ketones Negative Urine Occult Blood Negative Urine Nitrite Negative Urine Bilirubin Negative Urine Urobilinogen Normal Ur Leukocyte Esterase Negative Urine RBC 0 SEEN Urine WBC 0 SEEN Ur Squamous Epith Cells 10-25 SEEN Urine Bacteria 0 SEEN Urine Mucus 0 SEEN Radiography Diagnostic Testing: Clinical Impression(s) from Imaging Studies Abdomen/Pelvis CT 12/19/24 10:50 IMPRESSION: No acute findings in the abdomen and pelvis. Large colonic stool. Reading Location: [facility] Discharge Plan Triage Chief Complaint: Flank Pain ED Provider: Freddie Esquivel Dx/Rx/DC Orders Clinical Impression: Abdominal pain, Constipation Prescriptions: New dicyclomine 20 mg tablet 20 mg PO TID Qty: 20 0RF ondansetron 4 mg tablet,disintegrating 4 mg PO Q6H PRN (Reason: nausea and vomiting) Qty: 20 0RF docusate sodium [Colace] 100 mg capsule 100 mg PO DAILY Qty: 20 0RF No Action cholecalciferol (vitamin D3) 25 mcg (1,000 unit) capsule 25 mcg PO DAILY Wegovy 0.25 mg/0.5 mL pen injector 0.25 mg subcut QWEEK Premarin 0.625 mg/gram cream 1 vaginal 2XW aspirin [Adult Aspirin Regimen] 81 mg tablet,delayed release (DR/EC) 81 mg PO DAILY Qty: 1 0RF thyroid (pork) [[place] Thyroid] 60 mg tablet 60 mg PO DAILY metoprolol tartrate 25 mg Tablet 25 mg PO BID Qty: 60 0RF Primary Care Provider: Elda Branham Chi Referrals: Elda Branham Chi, MD [Primary Care Provider] - Activity Restrictions/Additional Instructions: Your blood work here today did not show any acute findings your CT scan did not show any acute surgical findings did show that you are constipated. Use MiraLAXtwice daily as well as the Colace until you are having adequate bowel movements and then can reduce to once a day. Follow-up your doctor in outpatient setting return with worsening symptoms or other concerns use prescriptions as prescribedthat were sent to your pharmacy Print Language: Z[place]ian Disposition Disposition: Home, Self Care What to do if you have Problems For any increased pain, shortness of breath, bleeding, nausea or vomiting, chestpain, or any unexpected problems, contact your Primary Care Provider. Call [facility] ([phone]) or report to the closest Emergency Room. Call 911 if necessary. 12/19/24 1224 <Electronically signed by Freddie Esquivel DO> Cosigner Signature (if applicable): CC: Dr. Elda Branham MD ~ Signed [facility] Work Phone: Evaluation noteNo assessment information available [facility] Work Phone: Evaluation note* Diagnosis Onset Date Resolution Status Atrial fibrillation with rapid ventricular response acute Family history of atrial dilatation acute Hx of thyroid disease acute [facility] Work Phone: Evaluation note* Diagnosis Onset Date Resolution Status Atrial fibrillation with rapid ventricular response resolved Family history of atrial dilatation resolved [facility] Work Phone: Evaluation note* Diagnosis Onset Date Resolution Status Atrial fibrillation with rapid ventricular response resolved Family history of atrial dilatation resolved Atrial fibrillation acute [facility] Work Phone: Hospital Discharge instructions Additional Instructions Your blood work here today did not show any acute findings your CT scan did not show any acute surgical findings did show that you are constipated. Use MiraLAX twice daily as well as the Colace until you are having adequate bowel movements and then can reduce to once a day. Follow-up your doctor in outpatient setting return with worsening symptoms or other concerns use prescriptions as [facility] Reason for referral (narrative)No reason for referral information availableC[facility] Work Phone: Summary Purpose Family History No Family History Records Found Relationship Condition Age at Onset Recorded Date/T gwendolyn brother Heart failure Unknown mother Viral hepatitis A without hepatic coma Un known brother Atrial fibrillation Unknown sister Atrial fibrillation Unknown father Malignant neoplasm Unknown Advance Directives No Advanced Directives Records Found Advance Directive Response Recorded Date/ Time Name of Medical Power of Banana Carrier Dain Vasquez July 24, 2023 12:05pm Living Will Yes July 24 12:05pm Power of Banana Carrier Yes July 24, 2023 12:05pm Advance Directive Response Recorded Date/ Time Name of Medical Power of Banana Carrier Dain Vasquez July 24, 2023 1:05pm Living Will Yes July 24 1:05pm Power of Banana Carrier Yes July 24, 2023 1:05pm Advance Directive Response Recorded Date/ Time Living Will Yes July 24 1:05pm Do you have a Healthcare Power of Banana Carrier? Yes July 24, 2023 1:05pm Do you have a Healthcare Power of Banana Carrier? No December 19, 2024 10:07am Chief Complaint and Reason for Visit Chief [...] A-FIB WITH RVR NEW ONSET AFIB RVR ([facility]) SCREEN Reason for Visit Atrial fibrillation with rapid ventricular response Family history of atrial dilatation Atrial fibrillation Chief Complaint Admit Date SCREENING October 07, 2024 10: 31am Chief Complaint Admit Date SCREENING October 07, 2024 10: 31am 1 Y FU October 29, 2024 1:4 6pm flank pain December 19, 2024 10:07 am Reason for Visit Admit Date Atrial fibrillation October 29, 2024 1:4 6pm Additional Source Comments INFORMATION SOURCE (unrecogn ized section and content) DATE CREATED AUTHOR 08/27/2018 [facility] DATE CREATED AUTHOR AUTHOR'S ORGANIZ ATION 02/23/2023 [facility] DATE CREATED AUTHOR AUTHOR'S ORGANIZ ATION 12/20/2024 [facility] Goals (unrecognized section and content) Goals may [...] October 07, 2024 End: October 07, 2024 Team Status: Inactive Member Role Status Dates Dr. Elda Branham MD Primary Care Provider Active Start: October 29, 2024 End: October 29, 2024 Dr. Elda Branham MD Referring Provider Active Start: October 29, 2024 End: October 29, 2024 Jenae Ocasio PA, PA Attending Provider Active Start: October 29, 2024 End: October 29, 2024 Team Status: Inactive Member Role Status Dates Dr. Elda Branham MD Primary Care Provider Active Start: December 10, 2024 End: December 10, 2024 Dr. Elda Branham MD Attending Provider Active Start: December 10, 2024 End: December 10, 2024 Dr. Elda Branham MD Referring Provider Active Start: December 10, 2024 End: December 10, 2024 Team Status: Inactive Member Role Status Dates Dr. Elda Branham MD Primary Care Provider Active Start: December 19, 2024 End: December 19, 2024 Dr. Freddie Esquivel , Emergency Provider Active Start: December 19, 2024 End: December 19, 2024 FOR RECORDS PERTAINING TO PATIENTS WHO [...] BE BASED ON THE PRIMARY CLINICAL RECORDS. [facility]. provides no warranty or guarantee of the accuracy or completeness of information in this document.
== END | disposition home or self-care (01) ==
LOC: RAD 15:19
PROVIDERS: PCP Family Medicine Geriatric Medicine; Referring Provider Family Medicine Geriatric Medicine; Visit Provider Family Medicine Geriatric Medicine
DX: M54.50 Low back pain, unspecified (principal)
CPT/HCPCS: 72110

== ENCOUNTER → 2025-03-09 | Outpatient (CLI) | payer OTHER, SELFPAY ==
[2025-03-09 13:40] LABS: Hematocrit 42.5 % (37-47); Hemoglobin 14.8 g/dL (12.0-15.0); Immature Granulocytes Count 0.010 X10^3/uL (0.0-0.0); Mean Corp Hgb Conc 34.8 g/dL (32-36); Mean Corpuscular Volume 90.4 fL (81-99); Mean Platelet Vol. 9.8 fl (6.2-12.0); NRBC Flagged by Analyzer 0 % (0-5); Platelet Count 220 K/mm3 (150-450); RBC Distribution Width CV 12.5 % (11.6-14.6); RBC Distribution Width SD 40.9 fl (35.1-43.9); Red Blood Count 4.70 M/mm3 (4.2-5.4); White Blood Count 6.5 K/mm3 (4.4-11.0)
[2025-03-09 15:11] LABS: AST(SGOT) 20 U/L (<=31); Alanine Aminotransfer ALT/SGPT 11 U/L (<=34); Albumin, Serum 4.8 g/dL (3.5-5.0); Alkaline Phosphatase 48 U/L (35-104); Anion Gap 13 (5-15); BUN 8 mg/dL (4-19); BUN/Creat Ratio 8.7 RATIO (10-20); Calcium,Total 9.9 mg/dL (7.6-11.0); Carbon Dioxide 21.8 mmol/L (21.0-32.0); Chloride 107 mmol/L (98-108); Globulin 2.7 g/dL (2.2-4.2); Glucose 88 mg/dL (70-99); Potassium 4.0 mmol/L (3.3-5.1); Vitamin D,25 Hydroxy 41.9 ng/mL (30-100)
--- OUTSIDE RECORDS SUMMARY | 2025-03-09 21:16 | XMS RPT_ITS | CCD ---
Author Organization [facility]iniSy[facility] Care Team Providers Care Waste Minimization Technician Name Role Phone JESSI CUBA Attending Unavailable JD ROGEL Admitting Unavailable TRAVON BRANHAM MD Consulting Unavailable JD ROGEL Attending Unavailable JD ROGEL Primary Care Unavailable PROVIDER, UNKNOWN Consulting Unavailable PROVIDER, UNKNOWN Consulting Unavailable Dr. Travon Branham Chi Primary Care Provider Dr. Jose Maria Smiht Emergency Provider Dr. Quinn Arnold Admit Provider Unavailable Dr. Quinn Arnold Attending Provider Unavailable Clayton, Dr. Ball Other Provider Unavailable Dr. Alex Patel Attending Provider Dr. Jacinto Diane Attending Provider [phone] Quinn Arnold Referring Provider Unavailable Benedicto, Dr. Casey Referring Provider [phone] Travon Branham Chi Primary Care Provider Dr. Jose Maria Smith Emergency Provider Dr. Quinn Arnold Admit Provider Unavailable Dr. Quinn Arnold Attending Provider Unavailable Dr. Quinn Arnold Other Provider Unavailable Dr. Alex Patel Attending Provider [phone] Dr. Quinn Arnold Referring Provider Unavailable Dr. Jacinto Diane Attending Provider [phone] Dr. Jacinto Diane Referring Provider [phone] Travon Branham Chi Referring Provider [phone] Adolfo PEÑALOZA, Dr. Travon Damon Primary Care Provider Adolfo PEÑALOZA, Dr. Travon Damon Attending Provider Adolfo PEÑALOZA, Dr. Travon Damon Referring Provider Jenae Johnson Attending Provider [phone] Dr. Ferddie Esquivel DO Emergency Provider Dr. Freddie Esquivel DO Attending Provider [phone] Adolfo, Travon Chi Primary Care Unavailable Adolfo, Travon Chi Attending Unavailable Adolfo, Travon Chi Referring Unavailable Adolfo, Travon Chi Attending Unavailable Adolfo, Travon Chi Referring Unavailable Adolfo, Travon Chi Primary Care Unavailable Adolfo, Travon Chi Primary Care Unavailable Adolfo, Travon Chi Attending Unavailable Adolfo, Travon Chi Primary Care Unavailable Adolfo, Travon Chi Attending Unavailable Adolfo, Travon Chi Primary Care Unavailable Jopperi, Desmond Admitting Unavailable Jopperi, Desmond Attending Unavailable Belal, Farouk Consulting Unavailable Freddie Esquivel Attending Unavailable Adolfo, Travon Chi Primary Care Unavailable Adolfo, Travon Chi Primary Care Unavailable Adolfo, Travon Chi Attending Unavailable Adolfo, Travon Chi Referring Unavailable Adolfo, Travon Chi Primary Care Unavailable Jenae Johnson Attending Unavail able Adolfo, Travon Chi Referring Unavailable Jopperi, Desmond Admitting Unavailable Adolfo, Travon Chi Primary Care Unavailable Jopperi, Desmond Consulting Unavailable Jopperi, Desmond Attending Unavailable Belal, Farouk Consulting Unavailable Belal, Farouk Attending Unavailable Allergies Allergy Classification Reported Allergen(s) Allergy Type Date of Onset Reaction(s) Facility (1 source) Seasonal allergy; Translations: [SEASONAL ALLERGIES] Propensity to adverse reactions (disorder) [address] [facility] Repository Medications Current Medications Medication Drug Class(es) Dates Sig (Normalized) Sig (Original) aspirin 81 mg delayed release oral tablet (3 sources) Platelet Aggregation Inhibitor, Nonsteroidal Anti-inflammatory Drug Start: 10-29-2024 take 1 tablet by mouth once daily Aspirin (Adult Aspirin Regimen) 81 mg tablet,delayed release (DR/EC) Active 81 mg PO DAILY October 29, 2024 12:00am cholecalciferol 0.025 mg oral tablet (9 sources) Vitamin D Start: 12-19-2024 take 1 tablet by mouth once daily Cholecalciferol (Vitamin D3) 25 mcg (1,000 unit) tablet Active 25 ug PO DAILY December 19, 2024 12:00am Start: 08-14-2023 take 1 capsule by [facility] once daily Cholecalciferol (Vitamin D3) 25 mcg (1,000 unit) capsule Active 25 ug PO DAILY August 14, 2023 1:00am dicyclomine hydrochloride 20 mg oral tablet (2 sources) Anticholinergic Start: 12-19-2024 take 1 tablet by mouth three times daily Dicyclomine 20 mg tablet Active 20 mg PO THREE TIMES A DAY December 19, 2024 12:00am docusate sodium 100 mg oral capsule (2 sources) Start: 12-19-2024 take 1 capsule by mouth once daily Docusate Sodium (Colace) 100 mg capsule Active 100 mg PO DAILY December 19, 2024 12:00am estrogens, conjugated (fpc) 0.625 mg/ml vaginal cream (10 sources) Estrogen Start: 10-29-2024 Conjugated Estrogens (Premarin) 0.625 mg/gram cream Active 0.625 mg VAGINAL TWICE A WEEK October 29, 2024 12:00am Start: 08-14-2023 End: 05-08-2024 apply 0.625 mg topically two times weekly Conjugated Estrogens (Premarin) 0.625 mg/gram cream Discontinued 1 NMA TOPICAL TWICE A WEEK August 14, 2023 1:00am May 08, 2024 6:27am estrogens, conjugated (fpc) 0.3 mg / medroxyPROGESTERone acetate 1.5 mg oral tablet (2 sources) Progestin, Estrogen Start: 12-19-2024 Conj Estrog-Medroxyprogest A ce [Conj Estrogen-Medroxyprogesterone 0.3 Mg-1.5 Mg Tablet] (Conj Estrogen-Medroxyprogesterone 0.3 Mg-1.5 Mg ) 0.3-1.5 mg tablet Active 1 {tbl} PO DAILY December 19, 2024 12:00am metoprolol tartrate 25 mg oral tablet (20 sources) beta-Adrenerg ic Erica Start: 05-09-2024 take 1 tablet by mouth twice daily Metoprolol Tartrate 25 mg Tablet Active 25 mg PO TWICE A DAY May 09, 2024 12:00am Start: 07-24-2023 End: 05-09-2024 take 1 tablet by mouth once daily Metoprolol Succinate 25 mg tablet extended release 24 hr Discontinued 25 mg PO DAILY 60 July 25, 2023 12:20pm May 09, 2024 4:46pm ondansetron 4 mg disintegrating oral tablet (2 sources) Serotonin-3 Receptor Antagonist Start: 12-19-2024 take 1 tablet by mouth every six hours as needed for nausea and vomiting Ondansetron 4 mg tablet,disintegrating Active 4 mg PO EVERY 6 HOURS as needed for nausea and vomiting December 19, 2024 12:00am Semaglutide (Weight Loss) (3 sources) Start: 10-29-2024 Semaglutide (Weight Loss) (Wegovy) 0.25 mg/0.5 mL pen injector Active 0.25 mg SC EVERY WEEK October 29, 2024 12:00am Thyroid (Pork) ([place] Thyroid) 60 mg tablet (8 sources) Start: 07-24-2023 take 1 tablet by mouth once daily Thyroid (Pork) ([place] Thyroid) 60 mg tablet Active 60 mg PO DAILY July 24, 2023 1:00am Start: 07-24-2023 take 1 tablet by mouth once da leonel Thyroid (Pork) ([place] Thyroid) 60 mg tablet Active 60 MG PO DAILY July 24, 2023 1:00am Start: 07-24-2023 take 1 tablet by mouth once da leonel Thyroid (Pork) ([place] Thyroid) 60 mg tablet Active 60 MG PO DAILY July 24, 2023 12:00am Completed/Discontinued Medications Medication Drug Class(es) Dates Sig (Normalized) Sig (Original) amiodarone hydrochloride 200 mg oral tablet (8 sources) Antiarrhythmic Start: 10-29-2024 End: 10-29-2024 take [...] Discontinued 200 mg PO TWICE A DAY May 09, 2024 12:00am October 29, 2024 2:11pm 2 tabs (400mg) twice daily for 1 week, then 1 tab (200mg) twice daily for 1 week, then 1 tab daily thereafter apixaban 5 mg oral tablet (13 sources) Factor Xa Inhibitor Start: 07-25-2023 End: 10-29-2024 take 1 tablet by mouth twice daily Apixaban (Eliquis) 5 mg tablet Discontinued 5 mg PO TWICE A DAY May 09, 2024 12:00am October 29, 2024 2:34pm 24 hr dilTIAZem hydrochloride 120 mg extended release oral capsule (8 sources) Calcium Channel Erica Start: 07-25-2023 End: 05-08-2024 take 1 capsule by mouth once daily Diltiazem Hcl 120 mg Capsule,Extended Release 24hr Discontinued 120 mg PO DAILY July 25, 2023 1:00am May 08, 2024 6:27am Semaglutide (7 sources) Start: 08-14-2023 End: 09-11-2023 Semaglutide (Ozempic) [...] Tirzepatide (Mounjaro) 10 mg/0.5 mL pen injector (6 sources) Start: 09-11-2023 End: 10-29-2024 Tirzepatide (Mounjaro) [...] EVERY WEEK September 11, 2023 1:00am Problems Active Problems Problem Classification Problem Date Documented Date Episodic/Chronic Abdominal pain (3 sources) Abdominal pain; Translations: [Unspecified abdominal pain] Onset: 12-24-19 25 12-19-2024 Episodic Cardiac dysrhythmias (20 sources) Atrial fibrillation with rapid ventricular response; Translations: [Unspecified atrial fibrillation] Onset: 05-25-20 24 07-24-2023 Chronic Cardiac dysrhythmias (7 sources) Tachycardia; Translations: [Tachycardia, unspecified] 08-14-2023 Episodic Disorders of lipid metabolism (14 sources) 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; Translations: [Familial hypercholesterolemia] 08-14-2023 Chronic Menopausal disorders (7 sources) Atrophic vaginitis; Translations: [Postmenopausal atrophic vaginitis] 08-14-2023 Chronic Nutritional deficiencies (7 sources) Vitamin D deficiency; Translations: [Vitamin D deficiency, unspecified] 08-14-2023 Chronic Osteoarthritis (7 sources) Osteoarthritis; Translations: [Unspecified osteoarthritis, unspecified site] 08-14-2023 Chronic Other endocrine disorders (1 source) Eric's syndrome, unspecified; 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, unspecified] Onset: 12-16-19 Chronic Other gastrointestinal disorders (2 sources) Constipation; Translations: [Constipation, unspecified] 12-19-2024 Episodic Other nutritional; endocrine; and metabolic disorders (7 sources) Morbid obesity; Translations: [Morbid (severe) obesity due to excess calories] 08-14-2023 Chronic Other nutritional; endocrine; and metabolic disorders (1 source) Morbid (severe) obesity due to excess calories; Translations: [Morbid (severe) obesity due to excess calories] Onset: 05-25-20 Chronic Other nutritional; endocrine; and metabolic disorders (8 sources) H/O: thyroid disorder; Translations: [Personal history [...] breast] Onset: 10-13-19 Episodic Residual codes; unclassified (8 sources) FH: Cardiovascular disease; Translations: [Family history of ischemic heart disease and other diseases of the circulatory system] 07-24-2023 Episodic Residual codes; unclassified (3 sources) Family history of ischemic heart disease and other diseases of the circulatory system; Translations: [Family history of other cardiovascular diseases] 07-25-2023 Episodic Syncope (7 sources) Syncope; Translations: [Syncope and collapse] 08-14-2023 Episodic Thyroid disorders (8 sources) Hypothyroidism; Translations: [Hypothyroidism, unspecified] Onset: 05-25-2008-14-2023 Chronic Unclassified (1 source) Low back pain, unspecified; Translations: [Low back pain, unspecified] Onset: 12-30-19 Past or Other Problems Problem Classification Problem Date Documented Da te Episodic/Chronic Malaise and fatigue (8 sources) Fatigue; Translations: [Other fatigue] Onset: 09-23-2024 08-14-2023 Episodic Results Test Name Value Interpretation Reference Range Facility L/S Spine Min 4 Views12-13 L/S Spine Min 4 Views [facility] Imaging Services [address] [place] [address] [id number] (283) L/S Spine Min 4 Views MR#: [id number] Acct: [id number] Name: FIONA VASQUEZ Rep #: [id number] : 1965 F 59 From: Ratna wray MD PCP: Dr. Travon Branham MD Status: REG CLI Study: L/S Spine Min 4 Views Date of Exam: 12/22/24 Exam# [id number] Ordering Dr: Travon Branham MD PROCEDURE: L/S SPINE MIN 4 VIEWS 12/22/2024 REASON FOR EXAM: LOW BACK PAIN TECHNIQUE: Standing AP view(s) of the thoracic and lumbar spine. COMPARISON: None. FINDINGS: Mild dextroscoliosis apex at L3. Grade 1 anterolisthesis of L4 on L5 measuring 3.2 mm without definite evidence of pars defects. There are diffuse spondylotic changes. Findings are demonstrated to by diffuse disc space narrowing, osteophyte formation and degenerative endplate sclerosis. There is diffuse facet joint arthropathy with secondary bilateral neural foramina narrowing. No fracture or dislocation is seen. No aggressive lytic or blastic bony lesion is noted. RAD/L/S Spine Min 4 Views IMPRESSION: Grade 1 anterolisthesis of L4 on L5 without definite evidence of pars defects. Spondylosis. [facility] CC: Dr. Travon Branham MD Tile Setter: Signed Normal [facility] Abdomen/Pelvis W IV Cont ONL Yon 12-19-2024 Abdomen/Pelvis W IV Cont ONLY [facility] Imaging Services [address] [place] [address] Abdomen/Pelvis W IV Cont ONLY MR#: [id number] Acct: [id number] Name: FIONA VASQUEZ Rep #: [id number] : 1965 F 59 From: Juan J li MD PCP: Dr. Travon Branham MD Status: REG ER Study: Abdomen/Pelvis W IV Cont ONLY Date of Exam: Exam# [id number] Ordering Dr: Freddie Esquivel DO PROCEDURE: ABDOMEN/PELVIS [...] and pelvis. Large colonic stool. Reading [facility] CC: Dr. Travon Branham MD; Dr. Freddie Esquivel DO Tile Setter: Signed Normal [facility] Absolute lymphocyte countOrd ered By: Freddie Esquivel on 12-19-2024 Lymphocytes Auto (Unsp spec) [#/Vol] 1.49 10*3/uL 0.83-4.51 [facility] Absolute neutrophil countOrd ered By: Freddie Esquivel on 12-19-2024 Neutrophils (Bld) [#/Vol] 4.4 10*3/uL 2.0-7.7 [facility] Anion gap in Serum or Plasma Ordered By: Freddie Esquivel on 12-19-2024 Anion gap [Moles/Vol] 10 mmol/L 5-15 [facility] Automated lymphocyte count a s percentage of total leukocytesOrdered By: Freddie Esquivel on 12-19-2024 Lymphocytes/100 WBC Auto (Unsp spec) 23.2 % 19-41 [facility] BUN/creatinine ratioOrdered By: Freddie Esquivel on 12-19-2024 Urea nitrogen/Creatinine [Mass ratio] 14.2 mg/mg 10-20 [facility] Basophil percentageOrdered B y: Freddie Esquivel on 12-19-2024 Basophils/100 WBC (Bld) 0.6 % 0-1 [facility] Bilirubin Test strip Ql (U)O rdered By: Freddie Esquivel on 12-19-2024 Bilirubin Ql (U) Negative Negative [facility] Bilirubin, totalOrdered By: Freddie Esquivel on 06-07-2025 Bilirubin [Mass/Vol] 0.55 mg/dL 0.00-1.30 [facility] CBC W/Diff, Automatedon 06-0 7-2024 Absolute Lymph 1.49 X10 3/uL Normal 0.83-4.51 [facility] Comment on above: Performed By: #### L 501.2450, L500.4050, L100.0100 ####[facility] [address] [place], [address] Absolute Neut 4.4 X10 3/uL Normal 2.0-7.7 [facility] Comment on above: Performed By: #### L 501.2450, L500.4050, L100.0100 ####[facility] [address] [place], [address] Basophils/100 WBC (Bld) 0.6 % Normal 0-1 [facility] Comment on above: Performed By: #### L 501.2450, L500.4050, L100.0100 ####[facility] [address] [place], [address] Eosinophils/100 WBC (Bld) 0.8 % Normal 0-5 [facility] Comment on above: Performed By: #### L 501.2450, L500.4050, L100.0100 ####[facility] [address] [place], [address] Erythrocyte distribution width (RBC) [Ratio] 13.0 % Normal 11.6-14.6 [facility] Comment on above: Performed By: #### L 501.2450, L500.4050, L100.0100 ####[facility] [address] [place], [address] Hematocrit (Bld) [Volume fraction] 38.4 % Normal 37-47 [facility] Comment on above: Performed By: #### L 501.2450, L500.4050, L100.0100 ####[facility] [address] [place], [address] Hemoglobin (Bld) [Mass/Vol] 13.1 g/dL Normal 12.0-15.0 [facility] Comment on above: Performed By: #### L 501.2450, L500.4050, L100.0100 ####[facility] [address] [place], [address] IG% 0.300 Normal 0.0-0.9 [facility] Comment on above: Result Comment: IG% - Immature Granulocytes (promyelocytes, myelocytes and metamyelocytes) > 1% indicates that a LEFT SHIFT is Present. Performed By: #### L 501.2450, L500.4050, L100.0100 ####[facility] [address] [place], [address] Lymphocytes/100 WBC (Bld) 23.2 % Normal 19-41 [facility] Comment on above: Performed By: #### L 501.2450, L500.4050, L100.0100 ####[facility] [address] [place], [address] MCH (RBC) [Entitic mass] 30.5 pg Normal 27.0-32.0 [facility] Comment on above: Performed By: #### L 501.2450, L500.4050, L100.0100 ####[facility] [address] [place], [address] MCHC (RBC) [Mass/Vol] 34.1 g/dL Normal 32-36 [facility] Comment on above: Performed By: #### L 501.2450, L500.4050, L100.0100 ####[facility] [address] [place], [address] MCV (RBC) [Entitic vol] 89.3 fL Normal 81-99 [facility] Comment on above: Performed By: #### L 501.2450, L500.4050, L100.0100 ####[facility] [address], [address] Monocytes/100 WBC (Bld) 5.9 % Normal 0-10 [facility] Comment on above: Performed By: #### L 501.2450, L500.4050, L100.0100 ####[facility] [address] [place], [address] Neutrophils/100 WBC (Bld) 69.2 % Normal 47-70 [facility] Comment on above: Performed By: #### L 501.2450, L500.4050, L100.0100 ####[facility] [address] [place], [address] Nucleated RBC (Bld) [#/Vol] 0 10*3/uL Normal 0-5 [facility] Comment on above: Performed By: #### L 501.2450, L500.4050, L100.0100 ####[facility] [address] [place], [address] Platelet mean volume (Bld) [Entitic vol] 9.6 fL Normal 6.2-12.0 [facility] Comment on above: Performed By: #### L 501.2450, L500.4050, L100.0100 ####[facility] [address] [place], [address] Platelets (Bld) [#/Vol] 173 10*3/uL Normal 150-450 [facility] Comment on above: Performed By: #### L 501.2450, L500.4050, L100.0100 ####[facility] [address] [place], [address] RBC (Bld) [#/Vol] 4.30 10*6/uL Normal 4.2-5.4 [facility] Comment on above: Performed By: #### L 501.2450, L500.4050, L100.0100 ####[facility] [address] [place], [address] RDW SD 42.7 fl Normal 35.1-43.9 [facility] Comment on above: Performed By: #### L 501.2450, L500.4050, L100.0100 ####[facility] [address] [place], [address] WBC (Bld) [#/Vol] 6.4 10*3/uL Normal 4.4-11.0 [facility] Comment on above: Performed By: #### L 501.2450, L500.4050, L100.0100 ####[facility] [address] [place], [address] Carbon dioxide, total [Moles /volume] in Central venous bloodOrdered By: Freddie Esquivel on 12-19-2024 CO2 [Moles/Vol] 21.6 mmol/L 21.0-32.0 [facility] Chloride assayOrdered By: Bienvenido Esquivel on 12-19-2024 Chloride [Moles/Vol] 107 mmol/L 98-108 [facility] Comprehensive Metabolic Prof ilon 12-19-2024 Albumin [Mass/Vol] 4.3 g/dL Normal 3.5-5.0 [facility] Comment on above: Performed By: #### L 501.2450, L500.4050, L100.0100 ####[facility] [address] [place], [address] Albumin/Globulin [Mass ratio] 1.8 {ratio} Normal 0.9-2.4 [facility] Comment on above: Performed By: #### L 501.2450, L500.4050, L100.0100 ####[facility] [address] [place], [address] ALK PHOS 49 U/L Normal 35-104 [facility] Comment on above: Performed By: #### L 501.2450, L500.4050, L100.0100 ####[facility] [address] [place], [address] ALT [Catalytic activity/Vol] 8 U/L Normal <=34 [facility] Comment on above: Performed By: #### L 501.2450, L500.4050, L100.0100 ####[facility] [address] [place], [address] AST [Catalytic activity/Vol] 15 U/L Normal <=31 [facility] Comment on above: Performed By: #### L 501.2450, L500.4050, L100.0100 ####[facility] [address] [place], [address] Bilirubin [Mass/Vol] 0.55 mg/dL Normal 0.00-1.30 [facility] Comment on above: Performed By: #### L 501.2450, L500.4050, L100.0100 ####[facility] [address] [place], [address] BUN/CRE 14.2 RATIO Normal 10-20 [facility] Comment on above: Performed By: #### L 501.2450, L500.4050, L100.0100 ####[facility] [address] [place], [address] Calcium [Mass/Vol] 8.9 mg/dL Normal 7.6-11.0 [facility] Comment on above: Performed By: #### L 501.2450, L500.4050, L100.0100 ####[facility] [address] [place], [address] Chloride [Moles/Vol] 107 mmol/L Normal 98-108 [facility] Comment on above: Performed By: #### L 501.2450, L500.4050, L100.0100 ####[facility] [address] [place], [address] CO2 [Moles/Vol] 21.6 mmol/L Normal 21.0-32.0 [facility] Comment on above: Performed By: #### L 501.2450, L500.4050, L100.0100 ####[facility] [address], [address] Creatinine [Mass/Vol] 0.78 mg/dL Normal 0.70-1.20 [facility] Comment on above: Performed By: #### L 501.2450, L500.4050, L100.0100 ####[facility] [address], [address] ECRCL 83.43 ml/min Normal 50-250 [facility] Comment on above: Performed By: #### L 501.2450, L500.4050, L100.0100 ####[facility] [address] [place], [address] GAP 10 Normal 5-15 [facility] Comment on above: Performed By: #### L 501.2450, L500.4050, L100.0100 ####[facility] [address] [place], [address] GFR/1.73 sq M.predicted among non-blacks MDRD (S/P/Bld) [Vol rate/Area] 88 mL/min/{1.73_m2} Normal >60 [facility] Comment on above: Result Comment: mL/m in/1.73m2 CKD-EPI Creatinine Equation (2020) Performed By: #### L 501.2450, L500.4050, L100.0100 ####[facility] [address] [place], [address] Globulin (S) [Mass/Vol] 2.4 g/dL Normal 2.2-4.2 [facility] Comment on above: Performed By: #### L 501.2450, L500.4050, L100.0100 ####[facility] [address] [place], [address] Glucose [Mass/Vol] 95 mg/dL Normal 70-99 [facility] Comment on above: Performed By: #### L 501.2450, L500.4050, L100.0100 ####[facility] [address] [place], [address] Potassium [Moles/Vol] 3.9 mmol/L Normal 3.3-5.1 [facility] Comment on above: Performed By: #### L 501.2450, L500.4050, L100.0100 ####[facility] [address] [place], [address] Sodium [Moles/Vol] 139 mmol/L Normal 133-145 [facility] Comment on above: Performed By: #### L 501.2450, L500.4050, L100.0100 ####[facility] [address] [place], [address] T PROT 6.7 g/dL Normal 5.9-8.4 [facility] [facility] Comment on above: Performed By: #### L 501.2450, L500.4050, L100.0100 ####[facility] [address] [place], [address] Urea nitrogen [Mass/Vol] 11 mg/dL Normal 4-19 [facility] Comment on above: Performed By: #### L 501.2450, L500.4050, L100.0100 ####[facility] [address] [place], [address] Emergency Department Summary on 12-19-2024 Emergency Department Summary [facility] Medical Records Department [address] [place] [address] Emergency Department Summary 12/19/24 MR#: [id number] Acct: [id number] Name: FIONA VASQUEZ Rep #: [id number] : 1965 59 From: Freddie Esquivel DO PCP: Dr. Travon Branham MD Status:REG ER Location: ED HPI [...] abdominal surgeries including 3 C-sections and abdominoplasty. [facility] Medical History Hyperlipidemia Atrial fibrillation Fatigue Familial hypercholesterolemia due to heterozygous low density lipoprotein (LDL) receptor mutation Osteoarthritis Tachycardia Vitamin D deficiency Atrophic vaginitis Morbid obesity Hypothyroid Syncope Home Medications ???Medication ???Instructions ???Recorded ???Last Taken ???Type thyroid (pork) 60 mg tablet 60 mg PO DAILY THYROID 07/24/23 Un known History ([place] Thyroid) cholecalciferol (vitamin D3) 25 25 mcg [...] own History mg/0.5 mL subcutaneous pen injector (Wegovy) [...] follow commands knew that she was at [facility] the year is 2024 Skin: Warm, dry, tact no rashes lesions noted Const Vital Signs: 12/19/24 10:08 12/19/24 11:09 12/19/24 12:07 Temperature 97.9 F 98 F (more content not included)... Normal [facility] Eosinophil percentageOrdered By: Freddie Esquivel on 12-19-2024 Eosinophils/100 WBC (Bld) 0.8 % 0-5 [facility] Erythrocyte distribution wid th ratioOrdered By: Freddie Esquivel on 12-19-2024 Erythrocyte distribution width (RBC) [Ratio] 13.0 % 11.6-14.6 [facility] Erythrocyte distribution wid th standard deviationOrdered By: Freddie Esquivel on 12-19-2024 Erythrocyte distribution width (RBC) [Ratio] 42.7 fl 35.1-43.9 [facility] Glomerular filtration rate ( GFR) estimation/1.73 sq m using serum, plasma, or whole bOrdered By: Freddie Esquivel on 12-19-2024 GFR/1.73 sq M.predicted among non-blacks MDRD (S/P/Bld) [Vol rate/Area] 88 mL/min/{1.73_m2} >60 [facility] Comment on above: mL/min/1.73m2 CKD-EP I Creatinine Equation (2020) Hematocrit Auto (Bld) [Volum e fraction]Ordered By: Freddie Esquivel on 12-19-2024 Hematocrit (Bld) [Volume fraction] 38.4 % 37-47 [facility] Hemoglobin measurementOrdere d By: Freddie Esquivel on 12-19-2024 Hemoglobin (Bld) [Mass/Vol] 13.1 g/dL 12.0-15.0 [facility] Immature granulocytes/100 WB C Auto (Bld)Ordered By: Freddie Esquivel on 12-19-2024 Immature granulocytes/100 WBC (Bld) 0.300 % 0.0-0.9 [facility] Comment on above: IG% - Immature Granu locytes (promyelocytes, myelocytes and metamyelocytes) > 1% indicates that a LEFT SHIFT is Present. Ketones Test strip Ql (U)Ord ered By: Freddie Esquivel on 12-19-2024 Ketones Ql (U) Negative Negative [facility] Laboratory - Chemistry and C hemistry - challengeOrdered By: Freddie Esquivel on 12-19-2024 AST [Catalytic activity/Vol] 15 U/L <32 [facility] Lipaseon 12-19-2024 Lipase [Catalytic activity/Vol] 50 U/L Normal 13-75 [facility] Comment on above: Result Comment: Plea se note: LIPASE revised reference range effective 22. New Lipase methodology. Expected to produce lower values than the previous assay method. NEW Reference Range: 13 - 75 U/L Performed By: #### L 501.2450, L500.4050, L100.0100 ####[facility] [address] [place], [address] Lipase measurementOrdered By : Freddie Esquivel on 12-19-2024 Lipase [Catalytic activity/Vol] 50 U/L 13-75 [facility] Comment on above: Please note:LIPASE r evised reference range effective 22. New Lipase methodology. Expected to produce lower values than the previous assay method. NEW Reference Range: 13 - 75 U/L MCV (mean corpuscular volume ) determinationOrdered By: Freddie Esquivel on 12-19-2024 MCV (RBC) [Entitic vol] 89.3 fL 81-99 [facility] Mean corpuscular hemoglobin (MCH) determinationOrdered By: Freddie Esquivel on 12-19-2024 MCH (RBC) [Entitic mass] 30.5 pg 27.0-32.0 [facility] Mean corpuscular hemoglobin concentration (MCHC) determinationOrdered By: Freddie Esquivel on 12-19-2024 MCHC (RBC) [Mass/Vol] 34.1 g/dL 32-36 [facility] Mean platelet volume determi nationOrdered By: Freddie Esquivel on 12-19-2024 Platelet mean volume (Bld) [Entitic vol] 9.6 fL 6.2-12.0 [facility] Microscopic analysis of urin e for red blood cells (RBC)Ordered By: Freddie Esquivel on 12-19-2024 Microscopic analysis of urine for red blood cells (RBC) 0 SEEN /hpf 0-5 [facility] Monocyte percentageOrdered B y: Freddie Esquivel on 12-19-2024 Monocytes/100 WBC (Bld) 5.9 % 0-10 [facility] Mucus LM Ql (Urine sed)Order ed By: Freddie Esquivel on 12-19-2024 Mucus Ql (Urine sed) 0 SEEN /hpf [facility] Neutrophil percentageOrdered By: Freddie Esquivel on 12-19-2024 Neutrophils/100 WBC (Bld) 69.2 % 47-70 [facility] Nitrite Test strip Ql (U)Ord ered By: Freddie Esquivel on 12-19-2024 Nitrite Ql (U) Negative Negative [facility] Nucleated red blood cell per centageOrdered By: Freddie Esquivel on 12-19-2024 Nucleated RBC/100 WBC (Bld) [Ratio] 0 % 0-5 [facility] Platelet countOrdered By: Bienvenido Esquivel on 12-19-2024 Platelets (Bld) [#/Vol] 173 10*3/uL 150-450 [facility] Potassium measurement (mass/ volume)Ordered By: Freddie Esquivel on 12-19-2024 Potassium (Unsp spec) [Mass/Vol] 3.9 mmol/L 3.3-5.1 [facility] Protein Test strip Ql (U)Ord ered By: Freddie Esquivel on 12-19-2024 Protein Ql (U) Negative Negative [facility] RBC Auto (Bld) [#/Vol]Ordere d By: Freddie Esquivel on 12-19-2024 RBC (Bld) [#/Vol] 4.30 10*6/uL 4.2-5.4 [facility] Serum creatinine measurement (mass/volume)Ordered By: Freddie Esquivel on 12-19-2024 Creatinine [Mass/Vol] 0.78 mg/dL 0.70-1.20 [facility] Serum globulin measurementOr dered By: Freddie Esquivel on 12-19-2024 Globulin (S) [Mass/Vol] 2.4 g/dL 2.2-4.2 [facility] Serum glucose measurement (m ass/volume)Ordered By: Freddie Esquivel on 12-19-2024 Glucose [Mass/Vol] 95 mg/dL 70-99 [facility] Serum or plasma alanine hogan otransferase (ALT) measurementOrdered By: Freddie Esquivel on 12-19-2024 ALT [Catalytic activity/Vol] 8 U/L <35 [facility] Serum or plasma albumin vinicius urement (mass/volume)Ordered By: Freddie Esquivel on 12-19-2024 Albumin [Mass/Vol] 4.3 g/dL 3.5-5.0 [facility] Serum or plasma albumin/glob ulin mass ratioOrdered By: Freddie Esquivel on 12-19-2024 Albumin/Globulin [Mass ratio] 1.8 {ratio} 0.9-2.4 [facility] Serum or plasma alkaline raulito sphatase measurementOrdered By: Freddie Esquivel on 12-19-2024 ALP [Catalytic activity/Vol] 49 U/L 35-104 [facility] Serum or plasma calcium vinicuis urement (mass/volume)Ordered By: Freddie Esquivel on 12-19-2024 Calcium [Mass/Vol] 8.9 mg/dL 7.6-11.0 [facility] Serum or plasma urea nitroge n measurement (mass/volume)Ordered By: Freddie Esquivel on 12-19-2024 Urea nitrogen [Mass/Vol] 11 mg/dL 4-19 [facility] Sodium levelOrdered By: Nii Esquivel on 12-19-2024 Sodium [Moles/Vol] 139 mmol/L 133-145 [facility] Squamous epithelial cells de tection in urine sediment by light microscopyOrdered By: Freddie Esquivel on 12-19-2024 Epithelial cells.squamous LM Ql (Urine sed) 10-25 SEEN /hpf 5-10 [facility] Total proteinOrdered By: John Esquivel on 12-19-2024 Protein [Mass/Vol] 6.7 g/dL 5.9-8.4 [facility] Urinalysis, Completeon 12-19 EPI,SQUAMOUS 10-25 SEEN Normal 5-10 [facility] Comment on above: Order Comment: CLEAN CATCH Performed By: #### L 400.0001 ####[facility] [address] [place], [address] BACTERIA 0 SEEN Normal None Seen [facility] Comment on above: Order Comment: CLEAN CATCH Performed By: #### L 400.0001 ####[facility] [address] [place], [place], [id number] Mucus Ql (Urine sed) 0 SEEN Normal [facility] Comment on above: Order Comment: CLEAN CATCH Performed By: #### L 400.0001 ####[facility] [address] [place], [address] RBC 0 SEEN Normal 0-5 [facility] Comment on above: Order Comment: CLEAN CATCH Performed By: #### L 400.0001 ####[facility] [address] [place], [address] WBC 0 SEEN Normal 0-5 [facility] Comment on above: Order Comment: CLEAN CATCH Performed By: #### L 400.0001 ####[facility] [address] [place], [place], [id number] Urine clarityOrdered By: John Esquivel on 12-19-2024 Clarity (U) Sl. Cloudy Clear [facility] Urine color determinationOrd ered By: Freddie Esquivel on 12-19-2024 Color (U) Yellow Yellow [facility] Urine glucose detectionOrder ed By: Freddie Esquivel on 12-19-2024 Glucose Ql (U) Normal mg/dl Normal [facility] Urine leukocyte esterase det ection by dipstickOrdered By: Freddie Esquivel on 12-19-2024 Leukocyte esterase Test strip Ql (U) Negative Negative [facility] Urine pHOrdered By: Freddie castellon on 12-19-2024 pH (U) 6.5 [pH] 5.0 - 8.0 [facility] Urine sediment bacteria coun t by microscopy (number/high power field)Ordered By: Freddie Esquivel on 12-19-2024 Bacteria LM.HPF (Urine sed) [#/Area] 0 /[HPF] None Seen [facility] Urine specific gravity measu rementOrdered By: Freddie Esquivel on 06-07-2025 Specific gravity (U) [Rel density] 1.010 1.002-1.030 [facility] Urine urobilinogen measureme ntOrdered By: Freddie Esquivel on 12-19-2024 Urobilinogen Ql (U) Normal mg/dl Normal [facility] White blood cell (WBC) count Ordered By: Freddie Esquivel on 12-19-2024 WBC (Bld) [#/Vol] 6.4 10*3/uL 4.4-11.0 [facility] White blood cell countOrdere d By: Freddie Esquivel on 12-19-2024 White blood cell count 0 SEEN /hpf 0-5 [facility] L509.6001on 12-10-2024 CORTISOL 0.55 ug/dL Low 6.02-18.40 [facility] Comment on above: Performed By: #### L 509.6001 ####[facility] [address] [place], [place], [address] Serum or plasma cortisol pearl surement (mass/volume)Ordered By: Travon Branham on 12-10-2024 Cortisol [Mass/Vol] 0.55 ug/dL Low 6.02-18.40 [facility] Cardiology Visit Reporton Cardiology Visit Report [facility] [address] [place] [address] OFFICE VISIT Date of Service: 10/29/24 MR#: [id number] Acct: [id number] Name: FIONA VASQUEZ Rep #: [id number] : 1965 Provider: LATASHA Anderson Age/Sex: 59/F Location: [facility] Status: Signed HPI HPI History of [...] mitral regurgitation. 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 Normal [facility] Breast imaging reportOrdered By: Naida Oseguera on 10-08-2024 Study report [facility] Imaging Services [address] [place], [place] [id number] SCRN MAMM (CAD)W/MINH BILAT MR#: [id number] Acct: [id number] Name: FIONA VASQUEZ Rep #: [id number] : 1965 F 59 From: Sukh Oseguera DO PCP: Dr. Travon Branham MD Status: REG Shala TURCIOS Study:SCRN MAMM (CAD)W/MINH BILAT Date of Exa m: 10/07/24 Exam# [id number] Ordering Dr: Travon Branham MD EXAM: SCRN MAMM (CAD)W/MINH BILAT [...] be mailed to the patient. Reading Location: [id number] CC: Dr. Travon Branham MD ~ Tile Setter: Signed [facility] SCRN MAMM (CAD)W/MINH BILATo n 10-07-2024 SCRN MAMM (CAD)W/MINH BILAT [facility] Imaging Services [address] [place] [address] SCRN MAMM (CAD)W/MINH BILAT MR#: [id number] Acct: [id number] Name: FIONA VASQUEZ Rep #: [id number] : 1965 F 59 From: Naida Damon PCP: Dr. Travon Branham MD Status: REG CLI Study: SCRN MAMM (CAD)W/MINH BILAT Date of Exam: 09/13 01/06 Exam# [id number] Ordering Dr: Travon Branham MD EXAM: SCRN MAMM (CAD)W/MINH BILAT [...] be mailed to the patient. Reading Location: [id number] CC: Dr. Travon Branham MD Tile Setter: Signed Normal [facility] Absolute lymphocyte countOrd ered By: Travon Branham on 09-08-2024 Lymphocytes Auto (Unsp spec) [#/Vol] 2.04 10*3/uL 0.83-4.51 [facility] Absolute neutrophil countOrd ered By: Travon Branham on 09-08-2024 Neutrophils (Bld) [#/Vol] 2.5 10*3/uL 2.0-7.7 [facility] Automated lymphocyte count a s percentage of total leukocytesOrdered By: Travon Branham on 09-08-2024 Lymphocytes/100 WBC Auto (Unsp spec) 39.5 % 19- [facility] BUN/creatinine ratioOrdered By: Travon Branham on 09-08-2024 Urea nitrogen/Creatinine [Mass ratio] 15.9 mg/mg 10-20 [facility] Basophil percentageOrdered B y: Travon Branham on 09-08-2024 Basophils/100 WBC (Bld) 1.0 % 0-1 [facility] Bilirubin, totalOrdered By: Travon Branham on 09-08-2024 Bilirubin [Mass/Vol] 0.57 mg/dL 0.00-1.30 [facility] CBC W/Diff, Automatedon 08-16 Absolute Lymph 2.04 X10 3/uL Normal 0.83-4.51 [facility] Comment on above: Performed By: #### L 500.4050, L100.0100, L501.9520 ####[facility] [address] [place], [address] Absolute Neut 2.5 X10 3/uL Normal 2.0-7.7 [facility] Comment on above: Performed By: #### L 500.4050, L100.0100, L501.9520 ####[facility] [address] [place], [address] Basophils/100 WBC (Bld) 1.0 % Normal 0-1 [facility] Comment on above: Performed By: #### L 500.4050, L100.0100, L501.9520 ####[facility] [address] [place], [address] Eosinophils/100 WBC (Bld) 2.3 % Normal 0-5 [facility] Comment on above: Performed By: #### L 500.4050, L100.0100, L501.9520 ####[facility] [address] [place], [address] Erythrocyte distribution width (RBC) [Ratio] 13.2 % Normal 11.6-14.6 [facility] Comment on above: Performed By: #### L 500.4050, L100.0100, L501.9520 ####[facility] [address] [place], [address] Hematocrit (Bld) [Volume fraction] 41.9 % Normal 37-47 [facility] Comment on above: Performed By: #### L 500.4050, L100.0100, L501.9520 ####[facility] [address] [place], [address] Hemoglobin (Bld) [Mass/Vol] 14.0 g/dL Normal 12.0-15.0 [facility] Comment on above: Performed By: #### L 500.4050, L100.0100, L501.9520 ####[facility] [address] [place], [address] IG% 0.200 Normal 0.0-0.9 [facility] Comment on above: Result Comment: IG% - Immature Granulocytes (promyelocytes, myelocytes and metamyelocytes) > 1% indicates that a LEFT SHIFT is Present. Performed By: #### L 500.4050, L100.0100, L501.9520 ####[facility] [address] [place], [address] Lymphocytes/100 WBC (Bld) 39.5 % Normal 19-41 [facility] Comment on above: Performed By: #### L 500.4050, L100.0100, L501.9520 ####[facility] [address] [place], [address] MCH (RBC) [Entitic mass] 29.7 pg Normal 27.0-32.0 [facility] Comment on above: Performed By: #### L 500.4050, L100.0100, L501.9520 ####[facility] [address] [place], [address] MCHC (RBC) [Mass/Vol] 33.4 g/dL Normal 32-36 [facility] Comment on above: Performed By: #### L 500.4050, L100.0100, L501.9520 ####[facility] [address] [place], [address] MCV (RBC) [Entitic vol] 88.8 fL Normal 81-99 [facility] Comment on above: Performed By: #### L 500.4050, L100.0100, L501.9520 ####[facility] [address] [place], [address] Monocytes/100 WBC (Bld) 7.8 % Normal 0-10 [facility] Comment on above: Performed By: #### L 500.4050, L100.0100, L501.9520 ####[facility] [address] [place], [address] Neutrophils/100 WBC (Bld) 49.2 % Normal 47-70 [facility] Comment on above: Performed By: #### L 500.4050, L100.0100, L501.9520 ####[facility] [address] [place], [address] Nucleated RBC (Bld) [#/Vol] 0 10*3/uL Normal 0-5 [facility] Comment on above: Performed By: #### L 500.4050, L100.0100, L501.9520 ####[facility] [address] [place], [address] Platelet mean volume (Bld) [Entitic vol] 10.6 fL Normal 6.2-12.0 [facility] Comment on above: Performed By: #### L 500.4050, L100.0100, L501.9520 ####[facility] [address] [place], [address] Platelets (Bld) [#/Vol] 201 10*3/uL Normal 150-450 [facility] Comment on above: Performed By: #### L 500.4050, L100.0100, L501.9520 ####[facility] [address] [place], [address] RBC (Bld) [#/Vol] 4.72 10*6/uL Normal 4.2-5.4 [facility] Comment on above: Performed By: #### L 500.4050, L100.0100, L501.9520 ####[facility] [address] [place], [address] RDW SD 43.0 fl Normal 35.1-43.9 [facility] Comment on above: Performed By: #### L 500.4050, L100.0100, L501.9520 ####[facility] [address] [place], [address] WBC (Bld) [#/Vol] 5.2 10*3/uL Normal 4.4-11.0 [facility] Comment on above: Performed By: #### L 500.4050, L100.0100, L501.9520 ####[facility] [address] [place], [address] Carbon dioxide measurementOr dered By: Travon Branham on 09-08-2024 CO2 [Moles/Vol] 21.4 mmol/L Low 22.0-29.0 [facility] Chloride measurementOrdered By: Travon Branham on 09-08-2024 Chloride [Moles/Vol] 105 mmol/L 96-108 [facility] Comprehensive Metabolic Prof ilon 09-08-2024 Albumin [Mass/Vol] 4.6 g/dL Normal 3.5-5.0 [facility] Comment on above: Performed By: #### L 500.4050, L100.0100, L501.9520 ####[facility] [address] [place], [address] Albumin/Globulin [Mass ratio] 1.7 {ratio} Normal 0.9-2.4 [facility] Comment on above: Performed By: #### L 500.4050, L100.0100, L501.9520 ####[facility] [address] [place], [address] ALK PHOS 62 U/L Normal 35-104 [facility] Comment on above: Performed By: #### L 500.4050, L100.0100, L501.9520 ####[facility] [address] [place], [address] ALT [Catalytic activity/Vol] 13 U/L Normal <=34 [facility] Comment on above: Performed By: #### L 500.4050, L100.0100, L5.9520 ####[facility] [address] [place], [address] Anion gap [Moles/Vol] 16 mmol/L High 5-15 [facility] Comment on above: Performed By: #### L 500.4050, L100.0100, L5.9519 ####[facility] [address] [place], [address] AST [Catalytic activity/Vol] 22 U/L Normal <=31 [facility] Comment on above: Performed By: #### L 500.4050, L100.0100, L5.9520 ####[facility] [address] [place], [address] Bilirubin [Mass/Vol] 0.57 mg/dL Normal 0.00-1.30 [facility] Comment on above: Performed By: #### L 500.4050, L100.0100, L501.9520 ####[facility] [address] [place], [address] BUN/CRE 15.9 RATIO Normal 10-20 [facility] Comment on above: Performed By: #### L 500.4050, L100.0100, L501.9520 ####[facility] [address] [place], [address] Calcium [Mass/Vol] 9.5 mg/dL Normal 7.6-11.0 [facility] Comment on above: Performed By: #### L 500.4050, L100.0100, L501.9520 ####[facility] [address] [place], [address] Chloride [Moles/Vol] 105 mmol/L Normal 96-108 [facility] Comment on above: Performed By: #### L 500.4050, L100.0100, L501.9520 ####[facility] [address] [place], [address] CO2 [Moles/Vol] 21.4 mmol/L Low 22.0-29.0 [facility] Comment on above: Performed By: #### L 500.4050, L100.0100, L501.9520 ####[facility] [address] [place], [address] Creatinine [Mass/Vol] 0.9 mg/dL Normal 0.6-1.0 [facility] Comment on above: Performed By: #### L 500.4050, L100.0100, L501.9520 ####[facility] [address] [place], [address] GFR/1.73 sq M.predicted among non-blacks MDRD (S/P/Bld) [Vol rate/Area] 77 mL/min/{1.73_m2} Normal >60 [facility] Comment on above: Result Comment: mL/m in/1.73m2 CKD-EPI Creatinine Equation (2020) Performed By: #### L 500.4050, L100.0100, L501.9520 ####[facility] [address] [place], [address] Globulin (S) [Mass/Vol] 2.6 g/dL Normal 2.2-4.2 [facility] Comment on above: Performed By: #### L 500.4050, L100.0100, L501.9520 ####[facility] [address] [place], [address] Glucose [Mass/Vol] 82 mg/dL Normal 70-99 [facility] Comment on above: Performed By: #### L 500.4050, L100.0100, L501.9520 ####[facility] [address] [place], [address] Potassium [Moles/Vol] 4.3 mmol/L Normal 3.3-5.1 [facility] Comment on above: Performed By: #### L 500.4050, L100.0100, L501.9520 ####[facility] [address] [place], [address] Sodium [Moles/Vol] 142 mmol/L Normal 133-145 [facility] Comment on above: Performed By: #### L 500.4050, L100.0100, L501.9520 ####[facility] [address] [place], [address] T PROT 7.2 g/dL Normal 5.9-8.4 [facility] Comment on above: Performed By: #### L 500.4050, L100.0100, L501.9520 ####[facility] [address] [place], [address] Urea nitrogen [Mass/Vol] 14 mg/dL Normal 4-19 [facility] Comment on above: Performed By: #### L 500.4050, L100.0100, L501.9520 ####[facility] [address] [place], [address] Creatinine [Moles/Vol]Ordere d By: Travon Branham on 09-08-2024 Creatinine [Mass/Vol] 0.9 mg/dL 0.6-1.0 [facility] Eosinophil percentageOrdered By: Travon Branham 09-08-2024 Eosinophils/100 WBC (Bld) 2.3 % 0-5 [facility] Erythrocyte distribution wid th ratioOrdered By: Travon Branham 09-08-2024 Erythrocyte distribution width (RBC) [Ratio] 13.2 % 11.6-14.6 [facility] Erythrocyte distribution wid th standard deviationOrdered By: Travon Branham 09-08-2024 Erythrocyte distribution width (RBC) [Entitic vol] 43.0 fL 35.1-43.9 [facility] Erythrocyte distribution width (RBC) [Ratio] 43.0 fl 35.1-43.9 [facility] GFR/1.73 sq M.predicted zunilda g non-blacks MDRD (S/P/Bld) [Vol rate/Area]Ordered By: Travon Branham 09-08-2024 Estimated GFR (MDRD) Non-Af Amer 77 >60 [facility] Comment on above: mL/min/1.73m2 CKD-EP I Creatinine Equation (2020) Glomerular filtration rate ( GFR) estimation/1.73 sq m using serum, plasma, or whole bOrdered By: Travon Branham 09-08-2024 GFR/1.73 sq M.predicted among non-blacks MDRD (S/P/Bld) [Vol rate/Area] 77 mL/min/{1.73_m2} >60 [facility] Comment on above: mL/min/1.73m2 CKD-EP I Creatinine Equation (2020) Hematocrit Auto (Bld) [Volum e fraction]Ordered By: Travon Branham 09-08-2024 Hematocrit (Bld) [Volume fraction] 41.9 % 37-47 [facility] Hemoglobin measurementOrdere d By: Travon Branham 09-08-2024 Hemoglobin (Bld) [Mass/Vol] 14.0 g/dL 12.0-15.0 [facility] Immature granulocytes/100 WB C Auto (Bld)Ordered By: Travon Branham 09-08-2024 Immature granulocytes/100 WBC (Bld) 0.200 % 0.0-0.9 [facility] Comment on above: IG% - Immature Granu locytes (promyelocytes, myelocytes and metamyelocytes) > 1% indicates that a LEFT SHIFT is Present. Laboratory - Chemistry and C hemistry - challengeOrdered By: Travon Branham on 09-08-2024 AST [Catalytic activity/Vol] 22 U/L <32 [facility] Lymphocytes Auto (Unsp spec) [#/Vol]Ordered By: Travon Branham on 09-08-2024 Lymphocytes (Bld) [#/Vol] 2.04 10*3/uL 0.83-4.51 [facility] Lymphocytes/100 WBC Auto (Un sp spec)Ordered By: Travon Branham on 09-08-2024 Lymphocytes/100 WBC (Bld) 39.5 % 19-41 [facility] MCV (mean corpuscular volume ) determinationOrdered By: Travon Branham on 09-08-2024 MCV (RBC) [Entitic vol] 88.8 fL 81-99 [facility] Mean corpuscular hemoglobin (MCH) determinationOrdered By: Travon Branham on 09-08-2024 MCH (RBC) [Entitic mass] 29.7 pg 27.0-32.0 [facility] Mean corpuscular hemoglobin concentration (MCHC) determinationOrdered By: Travon Branham on 09-08-2024 MCHC (RBC) [Mass/Vol] 33.4 g/dL 32-36 [facility] Mean platelet volume determi nationOrdered By: Travon Branham on 09-08-2024 Platelet mean volume (Bld) [Entitic vol] 10.6 fL 6.2-12.0 [facility] Monocyte percentageOrdered B y: Travon Branham on 09-08-2024 Monocytes/100 WBC (Bld) 7.8 % 0-10 [facility] Neutrophil percentageOrdered By: Travon Branham on 09-08-2024 Neutrophils/100 WBC (Bld) 49.2 % 47-70 [facility] Nucleated red blood cell per centageOrdered By: Travon Branham on 09-08-2024 Nucleated RBC/100 WBC (Bld) [Ratio] 0 % 0-5 [facility] Platelet countOrdered By: Bill Branham on 09-08-2024 Platelets (Bld) [#/Vol] 201 10*3/uL 150-450 [facility] RBC Auto (Bld) [#/Vol]Ordere d By: Travon Branham on 09-08-2024 RBC (Bld) [#/Vol] 4.72 10*6/uL 4.2-5.4 [facility] Serum globulin measurementOr dered By: Travon Branham on 09-08-2024 Globulin (S) [Mass/Vol] 2.6 g/dL 2.2-4.2 [facility] Serum glucose measurement (m ass/volume)Ordered By: Travon Branham on 09-08-2024 Glucose [Mass/Vol] 82 mg/dL 70-99 [facility] Serum or plasma alanine hogan otransferase (ALT) measurementOrdered By: Travon Branham on 09-08-2024 ALT [Catalytic activity/Vol] 13 U/L <35 [facility] Serum or plasma albumin vinicius urement (mass/volume)Ordered By: Travon Branham on 09-08-2024 Albumin [Mass/Vol] 4.6 g/dL 3.5-5.0 [facility] Serum or plasma albumin/glob ulin mass ratioOrdered By: Travon Branham on 09-08-2024 Albumin/Globulin [Mass ratio] 1.7 {ratio} 0.9-2.4 [facility] Serum or plasma alkaline raulito sphatase measurementOrdered By: Travon Branham 09-08-2024 ALP [Catalytic activity/Vol] 62 U/L 35-104 [facility] Serum or plasma anion gap de termination (moles/volume)Ordered By: Travon Branham on 09-08-2024 Anion gap [Moles/Vol] 16 mmol/L High 5-15 [facility] Serum or plasma calcium vinicius urement (mass/volume)Ordered By: Travon Branham on 09-08-2024 Calcium [Mass/Vol] 9.5 mg/dL 7.6-11.0 [facility] Serum or plasma creatinine m easurement (moles/volume)Ordered By: Travon Branham on 09-08-2024 Creatinine [Moles/Vol] 0.9 mg/dL 0.6-1.0 [facility] Serum or plasma potassium me asurementOrdered By: Travon Branham on 09-08-2024 Potassium [Moles/Vol] 4.3 mmol/L 3.3-5.1 [facility] Serum or plasma sodium measu rement (moles/volume)Ordered By: Travon Branham on 09-08-2024 Sodium [Moles/Vol] 142 mmol/L 133-145 [facility] Serum or plasma urea nitroge n measurement (mass/volume)Ordered By: Travon Branham on 09-08-2024 Urea nitrogen [Mass/Vol] 14 mg/dL 4-19 [facility] TSH DL <= 0.005 mIU/L QnOrde red By: Travon Branham on 09-08-2024 Thyroid Stimulating Hormone (TSH) 1.490 uIU/mL 0.300-4.200 [facility] TSH Qn 1.490 uIU/mL 0.300-4.200 [facility] Thyroid Stim Hormone (TSH)on 09-08-2024 TSH 1.490 uIU/mL Normal 0.300-4.200 [facility] Comment on above: Performed By: #### L 500.4050, L100.0100, L501.9520 ####[facility] [address] [place], [address] Total proteinOrdered By: Travon Branham on 09-08-2024 Protein [Mass/Vol] 7.2 g/dL 5.9-8.4 [facility] White blood cell (WBC) count Ordered By: Travon Branham on 09-08-2024 WBC (Bld) [#/Vol] 5.2 10*3/uL 4.4-11.0 [facility] 12 Lead EKGon 05-09-2024 12 Lead EKG [facility] Cardiovascular Services [address] [place] [address] 12 Lead EKG 05/09/24 1531 MR#: [id number] Acct: [id number] Name: FIONA VASQUEZ Rep #: [id number] : 1965 58 From: Jacinto Diane MD Attending Dr: Dr. Desmond Miranda, DO Status: DIS IN Ordering Dr: Margret Morales MD Date: 05/09/24 Location: [facility] Sex: F C Admitted: 05/08/24 Test [...] Confirmed by BENEDICTO PEÑALOZA, JACINTO ([id number]), editorial manager LELA FAJARDO ([id number]) on 05/11/2024 9:58:06 AM Referred By: Confirmed By:JACINTO DIANE MD 05/11/24 0958 Date Jacinto Diane MD CC: Dr. Desmond Miranda DO; Dr. Margret Morales MD; Dr. Travon Branham MD Signed Normal [facility] Consultation - Cardiologyon 05-09-2024 Consultation - Cardiology [facility] Medical Records Department [address] [place] [address] Consultation - Cardiology 05/09/24 1239 MR#: [id number] Acct: [id number] Name: FIONA VASQUEZ Rep #: [id number] : 1965 58 From: Margret Morales MD PCP: Dr. Travon Branham MD Status:ADM IN Location: [place] [address] Assessment Plan Assessment/Plan (1) Hypothyroid: (2) Morbid obesity: (3) Atrial fibrillation with rapid ventricular response: PLAN: Plan Cardiac care plan recommendation 58-year-old patient presented to the ER he had [facility] complaining of palpitation Does not have [...] followed in the office by her primary weight loss centre manager When she been evaluated by echocardiogram showed LV function is preserved with mild eccentric mitral regurgitation. On this admission she had A-fib with RVR does not respond very well to calcium channel erica and beta-erica. Therefore we will start on heparin as [...] her for early A-fib ablation. Margret Morales MD,[facility] HPI Consult Data Date of Consult: 05/09/24 HPI Narrative Reason for Consultation: Paroxysmal A-fib HPI Narrative: FIONA VASQUEZ, is a 58 F who presents [facility] Medical History Hyperlipidemia Fatigue Familial hypercholesterolemia due to heterozygous low density lipoprotein (LDL) receptor mutation Osteoarthritis Tachycardia Vitamin D deficiency Atrophic vaginitis Morbid obesity Hypothyroid Atrial fibrillation Syncope Home Medications ???Medication ???Instructions ???Recorded ???Last Taken ???Type thyroid (pork) 60 mg tablet 60 mg PO DAILY THYROID 07/24/23 Unknown History ([place] Thyroid) metoprolol succinate 25 mg 25 mg [...] Sitting in chair comfortable Review of the night monitor showed underlying A-fib with RVR Cardiac exam [...] (more content not included)... Normal [facility] Partial Thromboplast Timeon 05-09-2024 aPTT Coag (Bld) [Time] 27.3 s Normal 24.1-36.2 [facility] Comment on above: Performed By: #### L 981.7461 ####[facility] [address] [facility] [place], [address] 12 Lead EKGon 05-08-2024 12 Lead EKG [facility] Cardiovascular Services [address] [place] [address] 12 Lead EKG 05/08/24 0630 MR#: [id number] Acct: [id number] Name: FIONA VASQUEZ Rep #: [id number] : 1965 58 From: Jacinto Diane MD Attending Dr: Dr. Desmond Miranda DO Status: DIS IN Ordering Dr: Desmond Gamez DO Date: 05/08/24 Location: [facility] Sex: F C Admitted: 05/08/24 Test [...] Abnormal ECG Confirmed by BENEDICTO PEÑALOZA, JACINTO ([id number]), editorial manager LELA FAJARDO ([id number]) on 05/11/2024 9:20:45 AM Referred By: Confirmed By:JACINTO DIANE MD 05/11/24 09 Date Jacinto Diane MD CC: Dr. Desmond Miranda DO; Dr. Desmond Gamez DO; Dr. Travon Branham MD Signed Normal [facility] Basic Metabolic Profile (BMP )on 05-08-2024 BUN/CRE 15.1 RATIO Normal 05-03 [facility] Comment on above: Order Comment: 'TROP ' Serial specimen #1, #2 or #3: 1 Performed By: #### L 500.2500, L501.4020, L100.0100 #### [facility] Laboratory [address] [place], [address] CA,Total 8.8 mg/dL Normal 8.5-10.1 [facility] Comment on above: Order Comment: 'TROP ' Serial specimen #1, #2 or #3: 1 Performed By: #### L 500.2500, L501.4020, L100.0100 #### [facility] [address] [place], [address] Chloride [Moles/Vol] 115 mmol/L High 98-107 [facility] Comment on above: Order Comment: 'TROP ' Serial specimen #1, #2 or #3: 1 Performed By: #### L 500.2500, L501.4020, L100.0100 #### [facility] [address] [place], [address] CO2 [Moles/Vol] 24.0 mmol/L Normal 21.0-32.0 [facility] Comment on above: Order Comment: 'TROP ' Serial specimen #1, #2 or #3: 1 Performed By: #### L 500.2500, L501.4020, L100.0100 #### [facility] [address] [place], [address] Creatinine [Mass/Vol] 0.79 mg/dL Normal 0.55-1.02 [facility] Comment on above: Order Comment: 'TROP ' Serial specimen #1, #2 or #3: 1 Result Comment: The validity of the calculated GFR GFRAA in patients over 70 years has not been determined. Clinical correlation is essential. Performed By: #### L 500.2500, L501.4020, L100.0100 #### [facility] [address] [place], [address] ECRCL 82.93 ml/min Normal [facility] Comment on above: Order Comment: 'TROP ' Serial specimen #1, #2 or #3: 1 Performed By: #### L 500.2500, L501.4020, L100.0100 #### [facility] [address] [place], [address] EST GFR - AA 96 mL/min Normal >60 [facility] Comment on above: Order Comment: 'TROP ' Serial specimen #1, #2 or #3: 1 Result Comment: Afri can [place] GFR Calc Performed By: #### L 500.2500, L501.4020, L100.0100 #### [facility] [address] [place], [address] GAP 5 Normal 5-15 [facility] Comment on above: Order Comment: 'TROP ' Serial specimen #1, #2 or #3: 1 Performed By: #### L 500.2500, L501.4020, L100.0100 #### [facility] [address] [place], [address] GFR/1.73 sq M.predicted among non-blacks MDRD (S/P/Bld) [Vol rate/Area] 79 mL/min/{1.73_m2} Normal >60 [facility] Comment on above: Order Comment: 'TROP ' Serial specimen #1, #2 or #3: 1 Result Comment: Non- GFR Calc Performed By: #### L 500.2500, L501.4020, L100.0100 #### [facility] [address] [place], [address] Glucose [Mass/Vol] 121 mg/dL High 74-106 [facility] Comment on above: Order Comment: 'TROP ' Serial specimen #1, #2 or #3: 1 Result Comment: Fast ing Glucose result from 100 to 125 mg/dL suggests IMPAIRED HOMEOSTASIS per A.D.A. criteria. Performed By: #### L 500.2500, L501.4020, L100.0100 #### [facility] [address] [place], [address] Potassium [Moles/Vol] 3.8 mmol/L Normal 3.5-5.1 [facility] Comment on above: Order Comment: 'TROP ' Serial specimen #1, #2 or #3: 1 Performed By: #### L 500.2500, L501.4020, L100.0100 #### [facility] [address] [place], [address] Sodium [Moles/Vol] 144 mmol/L Normal 136-145 [facility] Comment on above: Order Comment: 'TROP ' Serial specimen #1, #2 or #3: 1 Performed By: #### L 500.2500, L501.4020, L100.0100 #### [facility] [address] [place], [address] Urea nitrogen [Mass/Vol] 12 mg/dL Normal 7-18 [facility] Comment on above: Order Comment: 'TROP ' Serial specimen #1, #2 or #3: 1 Performed By: #### L 500.2500, L501.4020, L100.0100 #### [facility] [address] [place], [address] CBC W/Diff, Automatedon 10-2 -2023 Absolute Lymph 2.32 X10 3/uL Normal 0.83-4.51 [facility] Comment on above: Performed By: #### L 500.2500, L501.4020, L100.0100 #### [facility] [address] [place], [address] Absolute Neut 2.3 X10 3/uL Normal 2.0-7.7 [facility] Comment on above: Performed By: #### L 500.2500, L501.4020, L100.0100 #### [facility] [address] [place], [address] Basophils/100 WBC (Bld) 0.6 % Normal 0-1 [facility] Comment on above: Performed By: #### L 500.2500, L501.4020, L100.0100 #### [facility] [address] [place], [address] Eosinophils/100 WBC (Bld) 1.2 % Normal 0-5 [facility] Comment on above: Performed By: #### L 500.2500, L501.4020, L100.0100 #### [facility] [address] [place], [address] Erythrocyte distribution width (RBC) [Ratio] 12.6 % Normal 11.6-14.6 [facility] Comment on above: Performed By: #### L 500.2500, L501.4020, L100.0100 #### [facility] [address] [place], [address] Hematocrit (Bld) [Volume fraction] 43.6 % Normal 37-47 [facility] Comment on above: Performed By: #### L 500.2500, L501.4020, L100.0100 #### [facility] [address] [place], [address] Hemoglobin (Bld) [Mass/Vol] 14.8 g/dL Normal 12.0-15.0 [facility] Comment on above: Performed By: #### L 500.2500, L501.4020, L100.0100 #### [facility] [address] [place], [address] IG% 0.400 Normal 0.0-0.9 [facility] Comment on above: Result Comment: IG% - Immature Granulocytes (promyelocytes, myelocytes and metamyelocytes) > 1% indicates that a LEFT SHIFT is Present. Performed By: #### L 500.2500, L501.4020, L100.0100 #### [facility] [address] [place], [address] Lymphocytes/100 WBC (Bld) 46.2 % High 19-41 [facility] Comment on above: Performed By: #### L 500.2500, L501.4020, L100.0100 #### [facility] [address] [place], [address] MCH (RBC) [Entitic mass] 29.9 pg Normal 27.0-32.0 [facility] Comment on above: Performed By: #### L 500.2500, L501.4020, L100.0100 #### [facility] [address] [place], [address] MCHC (RBC) [Mass/Vol] 33.9 g/dL Normal 32-36 [facility] Comment on above: Performed By: #### L 500.2500, L501.4020, L100.0100 #### [facility] [address] [place], [address] MCV (RBC) [Entitic vol] 88.1 fL Normal 81-99 [facility] Comment on above: Performed By: #### L 500.2500, L501.4020, L100.0100 #### [facility] Laboratory [address] [place], [address] Monocytes/100 WBC (Bld) 6.8 % Normal 0-10 [facility] Comment on above: Performed By: #### L 500.2500, L501.4020, L100.0100 #### [facility] [address] [place], [address] Neutrophils/100 WBC (Bld) 44.8 % Low 47-70 [facility] Comment on above: Performed By: #### L 500.2500, L501.4020, L100.0100 #### [facility] Laboratory [address] [place], [address] Nucleated RBC (Bld) [#/Vol] 0 10*3/uL Normal 0-5 [facility] Comment on above: Performed By: #### L 500.2500, L501.4020, L100.0100 #### [facility] Laboratory [address] [place], [address] Platelet mean volume (Bld) [Entitic vol] 10.2 fL Normal 6.2-12.0 [facility] Comment on above: Performed By: #### L 500.2500, L501.4020, L100.0100 #### [facility] Laboratory [address] [place], [address] Platelets (Bld) [#/Vol] 191 10*3/uL Normal 150-450 [facility] Comment on above: Performed By: #### L 500.2500, L501.4020, L100.0100 #### [facility] Laboratory [address] [place], [address] RBC (Bld) [#/Vol] 4.95 10*6/uL Normal 4.2-5.4 [facility] Comment on above: Performed By: #### L 500.2500, L501.4020, L100.0100 #### [facility] [address] [place], [address] RDW SD 40.9 fl Normal 35.1-43.9 [facility] Comment on above: Performed By: #### L 500.2500, L501.4020, L100.0100 #### [facility] Laboratory [address] [place], [address] WBC (Bld) [#/Vol] 5.0 10*3/uL Normal 4.4-11.0 [facility] Comment on above: Performed By: #### L 500.2500, L501.4020, L100.0100 #### [facility] Laboratory [address] [place], [address] Chest 1 View (Portable)on Chest 1 View (Portable) [facility] Imaging Services [address] [place] [address] Chest 1 View (Portable) MR#: [id number] Acct: [id number] Name: FIONA VASQUEZ Rep #: [id number] : 1965 F 58 From: Princess Golden PCP: Dr. Traovn Branham MD Status: [facility] ER Study: Chest 1 View (Portable) Date of Exam: 05/08/24 Exam# [id number] Ordering [place]: [place] [id number] INDICATION: chest pain EXAMINATION/TECHNIQUE: X-RAY - XR [...] , CC: Dr. Desmond Gamez DO; Dr. Travon Branham MD Tile Setter: Signed Normal [facility] Emergency Department Summary on 05-08-2024 Emergency Department [address] [facility] Medical Records Department [address] [place] [address] Emergency Department Summary 05/08/24 MR#: [id number] Acct: [id number] Name: FIONA VASQUEZ Rep #: [id number] : 1965 58 From: Desmond Gamez DO PCP: Dr. Travon Branham MD Status:ADM IN Location: [place] [address] HPI History of Present Illness Chief Complaint: [...] mg PO DAILY THYROID 07/24/23 Unknown History ([place] Thyroid) metoprolol succinate 25 mg 25 mg [...] (more content not included)... Normal [facility] H AND P Exam - [facility] 05-08-2024 H&P Exam - Hospitalist [facility] Medical Records Department [address] [place] [address] H P Exam - Hospitalist 05/08/24 1521 MR#: [id number] Acct: [id number] Name: FIONA VASQUEZ Rep #: [id number] : 1965 58 From: Desmond Miranda DO PCP: Dr. Travon Branham MD Status:ADM IN Location: [place] [id number] HPI - General General Date of Admission: 05/08/24 Date of Service: 05/08/24 Chief Complaint: palpitations. HPI Narrative FIONA VASQUEZ, is a 58 F who presents [...] improved but still remains in atrial fibrillation. 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 Normal [facility] L501.4020on 05-08-2024 TROPONIN-I HS 18 pg/mL Normal 3.0-54.0 [facility] Comment on above: Order Comment: Comme nts: SPECIMEN #3'TROP' Serial specimen #1, #2 or #3: 3 Result Comment: Plesheri se Note: New Test Units and Gender Specific Reference Ranges. For more information see Policy Stat Procedure [place] High Sensitivity Troponin (TNIH) and attachments. Performed By: #### L 501.4020 ####[facility] [address] [place], [address] TROPONIN-I HS 18 pg/mL Normal 3.0-54.0 [facility] Comment on above: Order Comment: Comme nts: SPECIMEN #2 'TROP' Serial specimen #1, #2 or #3: 2 Result Comment: Plea se Note: New Test Units and Gender Specific Reference Ranges. For more information see Policy Stat Procedure [place] High Sensitivity Troponin (TNIH) and attachments. Performed By: #### L 501.4020 #### [facility] [address] [place], [address] TROPONIN-I HS 11 pg/mL Normal 3.0-54.0 [facility] Comment on above: Order Comment: 'TROP ' Serial specimen #1, #2 or #3: 1 Result Comment: Plea se Note: New Test Units and Gender Specific Reference Ranges. For more information see Policy Stat Procedure [place] High Sensitivity Troponin (TNIH) and attachments. Performed By: #### L 500.2500, L501.4020, L100.0100 #### [facility] [address] [place], [address] CBC W/Diff, Automatedon 02-12 Absolute Lymph 2.42 X10 3/uL Normal 0.83-4.51 [facility] Comment on above: Performed By: #### L 500.4050, L501.9520, L100.0100 #### [facility] [address] [place], [address] Absolute Neut 2.5 X10 3/uL Normal 2.0-7.7 [facility] Comment on above: Performed By: #### L 500.4050, L501.9520, L100.0100 #### [facility] [address] [place], [address] Basophils/100 WBC (Bld) 0.9 % Normal 0-1 [facility] Comment on above: Performed By: #### L 500.4050, L501.9520, L100.0100 #### [facility] [address] [place], [address] Eosinophils/100 WBC (Bld) 1.4 % Normal 0-5 [facility] Comment on above: Performed By: #### L 500.4050, L501.9520, L100.0100 #### [facility] [address] [place], [address] Erythrocyte distribution width (RBC) [Ratio] 12.8 % Normal 11.6-14.6 [facility] Comment on above: Performed By: #### L 500.4050, L501.9520, L100.0100 #### [facility] [address] [place], [address] Hematocrit (Bld) [Volume fraction] 44.0 % Normal 37-47 [facility] Comment on above: Performed By: #### L 500.4050, L501.9520, L100.0100 #### [facility] [address] [place], [address] Hemoglobin (Bld) [Mass/Vol] 14.4 g/dL Normal 12.0-15.0 [facility] Comment on above: Performed By: #### L 500.4050, [id number], L100.0100 #### [facility] [address] [place], [address] IG% 0.200 Normal 0.0-0.9 [facility] Comment on above: Result Comment: IG% - Immature Granulocytes (promyelocytes, myelocytes and metamyelocytes) > 1% indicates that a LEFT SHIFT is Present. Performed By: #### L 500.4050, L501.9520, L100.0100 #### [facility] [address] [place], [address] Lymphocytes/100 WBC (Bld) 43.8 % High 19-41 [facility] Comment on above: Performed By: #### L 500.4050, [id number], L100.0100 #### [facility] [address] [place], [address] MCH (RBC) [Entitic mass] 28.9 pg Normal 27.0-32.0 [facility] Comment on above: Performed By: #### L 500.4050, [id number], L100.0100 #### [facility] [address] [place], [address] MCHC (RBC) [Mass/Vol] 32.7 g/dL Normal 32-36 [facility] Comment on above: Performed By: #### L 500.4050, [id number], L100.0100 #### [facility] [address] [place], [address] MCV (RBC) [Entitic vol] 88.4 fL Normal 81-99 [facility] Comment on above: Performed By: #### L 500.4050, [id number], L100.0100 #### [facility] [address] [place], [address] Monocytes/100 WBC (Bld) 8.0 % Normal 0-10 [facility] Comment on above: Performed By: #### L 500.4050, [id number], L100.0100 #### [facility] [address] [place], [address] Neutrophils/100 WBC (Bld) 45.7 % Low 47-70 [facility] Comment on above: Performed By: #### L 500.4050, [id number], L100.0100 #### [facility] [address] [place], [address] Nucleated RBC (Bld) [#/Vol] 0 10*3/uL Normal 0-5 [facility] Comment on above: Performed By: #### L 500.4050, [id number], L100.0100 #### [facility] [address] [place], [address] Platelet mean volume (Bld) [Entitic vol] 10.0 fL Normal 6.2-12.0 [facility] Comment on above: Performed By: #### L 500.4050, [id number], L100.0100 #### [facility] [address] [place], [address] Platelets (Bld) [#/Vol] 199 10*3/uL Normal 150-450 [facility] Comment on above: Performed By: #### L 500.4050, [id number], L100.0100 #### [facility] [address] [place], [address] RBC (Bld) [#/Vol] 4.98 10*6/uL Normal 4.2-5.4 [facility] Comment on above: Performed By: #### L 500.4050, [id number], L100.0100 #### [facility] [address] [place], [address] RDW SD 41.4 fl Normal 35.1-43.9 [facility] Comment on above: Performed By: #### L 500.4050, [id number], L100.0100 #### [facility] [address] [place], [address] WBC (Bld) [#/Vol] 5.5 10*3/uL Normal 4.4-11.0 [facility] Comment on above: Performed By: #### L 500.4050, [id number], L100.0100 #### [facility] [address] [place], [address] Comprehensive Metabolic Prof ilon 02-25-2024 Albumin [Mass/Vol] 4.1 g/dL Normal 3.2-5.0 [facility] Comment on above: Performed By: #### L 500.4050, [id number], L100.0100 #### [facility] [address] [place], [address] Albumin/Globulin [Mass ratio] 1.2 {ratio} Normal 0.9-2.4 [facility] Comment on above: Performed By: #### L 500.4050, [id number], L100.0100 #### [facility] [address] [place], [address] ALK P 76 U/L Normal 45-117 [facility] Comment on above: Performed By: #### L 500.4050, [id number], L100.0100 #### [facility] [address] [place], [address] ALT [Catalytic activity/Vol] 22 U/L Normal 13-56 [facility] Comment on above: Performed By: #### L 500.4050, [id number], L100.0100 #### [facility] [address] [place], [address] AST [Catalytic activity/Vol] 19 U/L Normal 15-37 [facility] Comment on above: Performed By: #### L 500.4050, [id number], L100.0100 #### [facility] [address] [place], [address] Bilirubin [Mass/Vol] 0.50 mg/dL Normal 0.20-1.00 [facility] Comment on above: Result Comment: For patients on eltrombopag therapy, use of Dimension [place] TBIL is not recommended. Performed By: #### L 500.4050, [id number], L100.0100 #### [facility] [address] [place], [address] BUN/CRE 25.4 RATIO High 10-20 [facility] Comment on above: Performed By: #### L 500.4050, [id number], L100.0100 #### [facility] [address] [place], [address] CA,Total 9.1 mg/dL Normal 8.5-10.1 [facility] Comment on above: Performed By: #### L 500.4050, [id number], L100.0100 #### [facility] [address] [place], [address] Chloride [Moles/Vol] 109 mmol/L High 98-107 [facility] Comment on above: Performed By: #### L 500.4050, [id number], L100.0100 #### [facility] [address] [place], [address] CO2 [Moles/Vol] 27.0 mmol/L Normal 21.0-32.0 [facility] Comment on above: Performed By: #### L 500.4050, [id number], L100.0100 #### [facility] [address] [place], [address] Creatinine [Mass/Vol] 0.79 mg/dL Normal 0.55-1.02 [facility] Comment on above: Result Comment: The validity of the calculated GFR GFRAA in patients over 70 years has not been determined. Clinical correlation is essential. Performed By: #### L 500.4050, [id number], L100.0100 #### [facility] [address] [place], [address] EST GFR - AA 96 mL/min Normal >60 [facility] Comment on above: Result Comment: Afri can [place] GFR Calc Performed By: #### L 500.4050, [id number], L100.0100 #### [facility] [address] [place], [address] GAP 6 Normal 5-15 [facility] Comment on above: Performed By: #### L 500.4050, [id number], L100.0100 #### [facility] [address] [place], [address] GFR/1.73 sq M.predicted among non-blacks MDRD (S/P/Bld) [Vol rate/Area] 80 mL/min/{1.73_m2} Normal >60 [facility] Comment on above: Result Comment: Non- GFR Calc Performed By: #### L 500.4050, [id number], L100.0100 #### [facility] [address] [place], [address] Globulin (S) [Mass/Vol] 3.5 g/dL Normal 2.2-4.2 [facility] Comment on above: Performed By: #### L 500.4050, [id number], L100.0100 #### [facility] [address] [place], [address] Glucose [Mass/Vol] 83 mg/dL Normal 74-106 [facility] Comment on above: Performed By: #### L 500.4050, [id number], L100.0100 #### [facility] [address] [place], [address] Potassium [Moles/Vol] 4.2 mmol/L Normal 3.5-5.1 [facility] Comment on above: Performed By: #### L 500.4050, [id number], L100.0100 #### [facility] [address] [place], [address] Sodium [Moles/Vol] 142 mmol/L Normal 136-145 [facility] Comment on above: Performed By: #### L 500.4050, [id number], L100.0100 #### [facility] [address] [place] [place], [address] T PROT 7.6 g/dL Normal 6.4-8.2 [facility] Comment on above: Performed By: #### L 500.4050, [id number], L100.0100 #### [facility] [address] [place], [address] Urea nitrogen [Mass/Vol] 20 mg/dL High 7-18 [facility] Comment on above: Performed By: #### L 500.4050, [id number], L100.0100 #### [facility] [address] [place], [address] Thyroid Stim Hormone (TSH)on 02-25-2024 TSH 0.408 uIU/mL Normal 0.358-3.740 [facility] Comment on above: Performed By: #### L 500.4050, [id number], L100.0100 #### [facility] [address] [place], [address] Absolute lymphocyte countOrd ered By: Travon Branham on 09-03-2023 Lymphocytes Auto (Unsp spec) [#/Vol] 2.31 10*3/uL 0.83-4.51 [facility] Automated lymphocyte count a s percentage of total leukocytesOrdered By: Travon Branham on 09-03-2023 Lymphocytes/100 WBC Auto (Unsp spec) 35.4 % 19-41 [facility] Basophil percentageOrdered B y: Travon Branham on 09-03-2023 Basophils/100 WBC (Bld) 0.8 % 0-1 [facility] Bilirubin [Mass/Vol] 0.50 mg/dL 0.20-1.00 [facility] Comment on above: For patients on eltr ombopag therapy, use of Dimension [place] TBIL is not recommended. Chloride [Moles/Vol] 110 mmol/L 98-107 [facility] Eosinophils/100 WBC (Bld) 0.9 % 0-5 [facility] Glucose [Mass/Vol] 80 mg/dL 74-106 [facility] Hemoglobin (Bld) [Mass/Vol] 14.0 g/dL 12.0-15.0 [facility] Monocytes/100 WBC (Bld) 6.3 % 0-10 [facility] Neutrophils (Bld) [#/Vol] 3.7 10*3/uL 2.0-7.7 [facility] Neutrophils/100 WBC (Bld) 56.3 % 47-70 [facility] Potassium [Moles/Vol] 3.7 mmol/L 3.5-5.1 [facility] Protein [Mass/Vol] 7.3 g/dL 6.4-8.2 [facility] Sodium [Moles/Vol] 143 mmol/L 136-145 [facility] WBC (Bld) [#/Vol] 6.5 10*3/uL 4.4-11.0 [facility] Determination of erythrocyte mean corpuscular volume (MCV)Ordered By: Travon Branham on 09-03-2023 MCV (RBC) [Entitic vol] 87.3 fL 81-99 [facility] Erythrocyte distribution wid th ratioOrdered By: Travon Branham 09-03-2023 Erythrocyte distribution width (RBC) [Ratio] 12.9 % 11.6-14.6 [facility] Erythrocyte distribution wid th standard deviationOrdered By: Travon Branham on 09-03-2023 Erythrocyte distribution width (RBC) [Entitic vol] 40.5 fL 35.1-43.9 [facility] Hematocrit Auto (Bld) [Volum e fraction]Ordered By: Travon Branham 09-03-2023 Hematocrit (Bld) [Volume fraction] 42.5 % 37-47 [facility] Immature granulocytes/100 WB C Auto (Bld)Ordered By: Travon Branham on 09-03-2023 Immature granulocytes/100 WBC (Bld) 0.300 % 0.0-0.9 [facility] Comment on above: IG% - Immature Granu locytes (promyelocytes, myelocytes and metamyelocytes) > 1% indicates that a LEFT SHIFT is Present. Laboratory - Chemistry and C hemistry - challengeOrdered By: Travon Branham on 09-03-2023 Albumin/Globulin [Mass ratio] 1.3 {ratio} 0.9-2.4 [facility] ALP [Catalytic activity/Vol] 77 U/L 45-117 [facility] ALT [Catalytic activity/Vol] 16 U/L 13-56 [facility] CO2 [Moles/Vol] 26.0 mmol/L 21.0-32.0 [facility] Globulin (S) [Mass/Vol] 3.2 g/dL 2.2-4.2 [facility] Urea nitrogen/Creatinine [Mass ratio] 17.1 mg/mg 10-20 [facility] Laboratory - Hematology and Cell countsOrdered By: Travon Branham on 09-03-2023 MCH (RBC) [Entitic mass] 28.7 pg 27.0-32.0 [facility] MCHC (RBC) [Mass/Vol] 32.9 g/dL 32-36 [facility] Nucleated RBC/100 WBC (Bld) [Ratio] 0 % 0-5 [facility] Platelet mean volume (Bld) [Entitic vol] 10.2 fL 6.2-12.0 [facility] Platelets (Bld) [#/Vol] 188 10*3/uL 150-450 [facility] No Panel InformationOrdered By: Travon Branham on 09-03-2023 Estimated GFR (MDRD) Amer 85 mL/min >60 [facility] Comment on above: GFR Calc Estimated GFR (MDRD) Non-Af Amer 71 mL/min >60 [facility] Comment on above: Non- GFR Calc RBC Auto (Bld) [#/Vol]Ordere d By: Travon Branham on 09-03-2023 RBC (Bld) [#/Vol] 4.87 10*6/uL 4.2-5.4 [facility] Serum or plasma calcium vinicius urement (mass/volume)Ordered By: Travon Branham on 09-03-2023 Calcium [Mass/Vol] 9.1 mg/dL 8.5-10.1 [facility] Serum or plasma creatinine m easurement (mass/volume)Ordered By: Travon Branham on 09-03-2023 Creatinine [Mass/Vol] 0.88 mg/dL 0.55-1.02 [facility] Comment on above: The validity of the calculated GFR & GFRAA in patients over 70 years has not been determined. Clinical correlation is essential. Serum or plasma thyroid stim ulating hormone (TSH) measurement (units/volume)Ordered By: Travon Branham on 09-03-2023 TSH Qn 0.43 uIU/mL 0.358-3.74 [facility] Serum or plasma urea nitroge n measurement (mass/volume)Ordered By: Travon Branham on 09-03-2023 Urea nitrogen [Mass/Vol] 15 mg/dL 7-18 [facility] Thin prep Papanicolaou smear with manual screeningOrdered By: [facility] Adolfo on 09-03-2023 Thin prep Papanicolaou smear with manual screening 4.1 g/dL 3.2-5.0 [facility] Thin prep Papanicolaou smear with manual screening 15 U/L 15-37 [facility] Thin prep Papanicolaou smear with manual screening 7 5-15 [facility] Absolute lymphocyte countOrd ered By: Quinn Arnold on 07-25-2023 Lymphocytes Auto (Unsp spec) [#/Vol] 1.69 10*3/uL 0.83-4.51 [facility] Basophil percentageOrdered B y: Quinn Arnold on 07-25-2023 Basophil percentage 3.3 mg/dL 2.5-4.9 [facility] Basophils/100 WBC (Bld) 0.7 % 0-1 [facility] Chloride [Moles/Vol] 117 mmol/L 98-107 [facility] Eosinophils/100 WBC (Bld) 1.4 % 0-5 [facility] Glucose [Mass/Vol] 91 mg/dL 74-106 [facility] Neutrophils (Bld) [#/Vol] 3.6 10*3/uL 2.0-7.7 [facility] Neutrophils/100 WBC (Bld) 61.4 % 47-70 [facility] Potassium [Moles/Vol] 3.8 mmol/L 3.5-5.1 [facility] Sodium [Moles/Vol] 146 mmol/L 136-145 [facility] WBC (Bld) [#/Vol] 5.9 10*3/uL 4.4-11.0 [facility] Blood erythrocytes count (nu mber/volume)Ordered By: Quinn Arnold on 07-25-2023 RBC (Bld) [#/Vol] 4.22 10*6/uL 4.2-5.4 [facility] Blood hemoglobin measurement (mass/volume)Ordered By: Quinn Arnold on 07-25-2023 Hemoglobin (Bld) [Mass/Vol] 12.3 g/dL 12.0-15.0 [facility] Blood lymphocytes/100 leukoc ytesOrdered By: Quinn Arnold on 07-25-2023 Lymphocytes/100 WBC (Bld) 28.5 % 19-41 [facility] Blood monocytes/100 leukocyt esOrdered By: Quinn Arnold on 07-25-2023 Monocytes/100 WBC (Bld) 7.8 % 0-10 [facility] Blood platelet mean volumeOr dered By: Quinn Arnold on 07-25-2023 Platelet mean volume (Bld) [Entitic vol] 10.7 fL 6.2-12.0 [facility] Determination of erythrocyte mean corpuscular volume (MCV)Ordered By: Quinn Arnold on 07-25-2023 MCV (RBC) [Entitic vol] 88.4 fL 81-99 [facility] Hematocrit Auto (Bld) [Volum e fraction]Ordered By: Quinn Arnold on 07-25-2023 Hematocrit (Bld) [Volume fraction] 37.3 % 37-47 [facility] Laboratory - Chemistry and C hemistry - challengeOrdered By: Quinn Arnold on 07-25-2023 CO2 [Moles/Vol] 22.0 mmol/L 21.0-32.0 [facility] Magnesium [Mass/Vol] 2.1 mg/dL 1.6-2.6 [facility] Urea nitrogen/Creatinine [Mass ratio] 15.8 mg/mg 10-20 [facility] - Hematology and Cell countsOrdered By: Qiunn Arnold on 07-25-2023 Erythrocyte distribution width (RBC) [Entitic vol] 42.5 fL 35.1-43.9 [facility] Erythrocyte distribution width (RBC) [Ratio] 13.2 % 11.6-14.6 [facility] Immature granulocytes/100 WBC (Bld) 0.200 % 0.0-0.9 [facility] Comment on above: IG% - Immature Granu locytes (promyelocytes, myelocytes and metamyelocytes) > 1% indicates that a LEFT SHIFT is Present. MCH (RBC) [Entitic mass] 29.1 pg 27.0-32.0 [facility] Nucleated RBC/100 WBC (Bld) [Ratio] 0 % 0-5 [facility] MCHC Auto (RBC) [Mass/Vol]Or dered By: Quinn Arnold on 07-25-2023 MCHC (RBC) [Mass/Vol] 33.0 g/dL 32-36 [facility] No Panel InformationOrdered By: Quinn Arnold on 07-25-2023 Estimated Creatinine Clearance Calc 81.93 ml/min [facility] Estimated GFR (MDRD) Amer 92 mL/min >60 [facility] Comment on above: GFR Calc Estimated GFR (MDRD) Non-Af Amer 76 mL/min >60 [facility] Comment on above: Non- GFR Calc Platelets bldOrdered By: Oscar Arnold on 07-25-2023 Platelets (Bld) [#/Vol] 190 10*3/uL 150-450 [facility] Serum or plasma calcium vinicius urement (mass/volume)Ordered By: Quinn Arnold on 07-25-2023 Calcium [Mass/Vol] 8.7 mg/dL 8.5-10.1 [facility] Serum or plasma creatinine m easurement (mass/volume)Ordered By: Quinn Arnold on 07-25-2023 Creatinine [Mass/Vol] 0.82 mg/dL 0.55-1.02 [facility] Comment on above: The validity of the calculated GFR & GFRAA in patients over 70 years has not been determined. Clinical correlation is essential. Serum or plasma urea nitroge n measurement (mass/volume)Ordered By: Quinn Arnold on 07-25-2023 Urea nitrogen [Mass/Vol] 13 mg/dL 7-18 [facility] Thin prep Papanicolaou smear with manual screeningOrdered By: Quinn Arnold on 07-25-2023 Thin prep Papanicolaou smear with manual screening 7 5-15 [facility] INR in Blood by Coagulation assayOrdered By: Jose Maria Smith on 07-24-2023 INR Coag (Bld) [Relative time] 1.0 {INR} [facility] Laboratory - Chemistry and C hemistry - challengeOrdered By: Quinn Arnold on 07-24-2023 Natriuretic peptide B (Bld) [Mass/Vol] 442.7 pg/mL 0-100 [facility] Laboratory - CoagulationOrde red By: Jose Maria Smith on 07-24-2023 aPTT Coag (Bld) [Time] 27.1 s 24.1-36.2 [facility] PT Coag (PPP) [Time] 13.3 s 11.7-14.9 [facility] No Panel InformationOrdered By: Quinn Arnold on 07-24-2023 Troponin I High Sensitivity 5 pg/mL 3.0-54.0 [facility] Comment on above: Please Note: New [place] t Units and Gender Specific Reference Ranges. For more information see Policy Stat Procedure [place] High Sensitivity Troponin (TNIH) and attachments. D-Dimer Quantitative (PE/DVT) 0.69 FEU/ug/m 0.27-0.49 [facility] Comment on above: D-Dimer ELEVATED (>0 .49): Additional studies and clinicalassessments are indicated to conclude diagnosis of:Deep Vein Thrombosis (DVT) or Pulmonary Embolism (PE) No Panel InformationOrdered By: Jose Maria Smith on 07-24-2023 Thyroid Stimulating Hormone (TSH) 0.92 uIU/mL 0.358-3.74 [facility] Absolute lymphocyte countOrd ered By: Travon Branham on 02-21-2023 Lymphocytes Auto (Unsp spec) [#/Vol] 2.02 10*3/uL 0.83-4.51 [facility] Basophil percentageOrdered B y: Travon Branham on 02-21-2023 Basophils/100 WBC (Bld) 0.8 % 0-1 [facility] Bilirubin [Mass/Vol] 0.40 mg/dL 0.20-1.00 [facility] Comment on above: For patients on eltr ombopag therapy, use of Dimension [place] TBIL is not recommended. Chloride [Moles/Vol] 111 mmol/L 98-107 [facility] Eosinophils/100 WBC (Bld) 1.3 % 0-5 [facility] Glucose [Mass/Vol] 108 mg/dL 74-106 [facility] Comment on above: Fasting Glucose resu lt from 100 to 125 mg/dL suggests IMPAIRED HOMEOSTASIS per A.D.A. criteria. Neutrophils (Bld) [#/Vol] 2.3 10*3/uL 2.0-7.7 [facility] Neutrophils/100 WBC (Bld) 47.7 % 47-70 [facility] Potassium [Moles/Vol] 3.8 mmol/L 3.5-5.1 [facility] Protein [Mass/Vol] 7.2 g/dL 6.4-8.2 [facility] Sodium [Moles/Vol] 143 mmol/L 136-145 [facility] WBC (Bld) [#/Vol] 4.7 10*3/uL 4.4-11.0 [facility] Blood erythrocytes count (nu mber/volume)Ordered By: Travon Branham on 02-21-2023 RBC (Bld) [#/Vol] 4.65 10*6/uL 4.2-5.4 [facility] Blood hemoglobin measurement (mass/volume)Ordered By: Travon Branham on 02-21-2023 Hemoglobin (Bld) [Mass/Vol] 13.8 g/dL 12.0-15.0 [facility] Blood lymphocytes/100 leukoc ytesOrdered By: Travon Branham on 02-21-2023 Lymphocytes/100 WBC (Bld) 42.8 % 19-41 [facility] Blood monocytes/100 leukocyt esOrdered By: Travon Branham on 02-21-2023 Monocytes/100 WBC (Bld) 7.2 % 0-10 [facility] Blood platelet mean volumeOr dered By: Travon Branham on 02-21-2023 Platelet mean volume (Bld) [Entitic vol] 10.2 fL 6.2-12.0 [facility] Determination of erythrocyte mean corpuscular volume (MCV)Ordered By: Travon Branham on 02-21-2023 MCV (RBC) [Entitic vol] 90.1 fL 81-99 [facility] Hematocrit Auto (Bld) [Volum e fraction]Ordered By: Travon Branham on 02-21-2023 Hematocrit (Bld) [Volume fraction] 41.9 % 37-47 [facility] Laboratory - Chemistry and C hemistry - challengeOrdered By: Travon Branham on 02-21-2023 ALP [Catalytic activity/Vol] 70 U/L 45-117 [facility] ALT [Catalytic activity/Vol] 21 U/L 13-56 [facility] CO2 [Moles/Vol] 25.0 mmol/L 21.0-32.0 [facility] Globulin (S) [Mass/Vol] 3.3 g/dL 2.2-4.2 [facility] Urea nitrogen/Creatinine [Mass ratio] 18.8 mg/mg 10-20 [facility] Laboratory - Hematology and Cell countsOrdered By: Travon Branham on 02-21-2023 Erythrocyte distribution width (RBC) [Entitic vol] 41.3 fL 35.1-43.9 [facility] Erythrocyte distribution width (RBC) [Ratio] 12.6 % 11.6-14.6 [facility] Immature granulocytes/100 WBC (Bld) 0.200 % 0.0-0.9 [facility] Comment on above: IG% - Immature Granu locytes (promyelocytes, myelocytes and metamyelocytes) > 1% indicates that a LEFT SHIFT is Present. MCH (RBC) [Entitic mass] 29.7 pg 27.0-32.0 [facility] Nucleated RBC/100 WBC (Bld) [Ratio] 0 % 0-5 [facility] MCHC Auto (RBC) [Mass/Vol]Or dered By: Travon rBanham on 02-21-2023 MCHC (RBC) [Mass/Vol] 32.9 g/dL 32-36 [facility] No Panel InformationOrdered By: Travon Branham on 02-21-2023 Estimated GFR (MDRD) Amer 95 mL/min >60 [facility] Comment on above: GFR Calc Estimated GFR (MDRD) Non-Af Amer 79 mL/min >60 [facility] Comment on above: Non- GFR Calc Thyroid Stimulating Hormone (TSH) 0.33 uIU/mL 0.358-3.74 [facility] Platelets bldOrdered By: Travon Branham on 02-21-2023 Platelets (Bld) [#/Vol] 189 10*3/uL 150-450 [facility] Serum or plasma albumin vinicius urement (mass/volume)Ordered By: Travon Branham on 02-21-2023 Albumin [Mass/Vol] 3.9 g/dL 3.2-5.0 [facility] Serum or plasma albumin/glob ulin mass ratioOrdered By: Travon Branham on 02-21-2023 Albumin/Globulin [Mass ratio] 1.2 {ratio} 0.9-2.4 [facility] Serum or plasma calcium vinicius urement (mass/volume)Ordered By: Travon Branham on 02-21-2023 Calcium [Mass/Vol] 8.9 mg/dL 8.5-10.1 [facility] Serum or plasma creatinine m easurement (mass/volume)Ordered By: Travon Branham on 02-21-2023 Creatinine [Mass/Vol] 0.80 mg/dL 0.55-1.02 [facility] Comment on above: The validity of the calculated GFR & GFRAA in patients over 70 years has not been determined. Clinical correlation is essential. Serum or plasma urea nitroge n measurement (mass/volume)Ordered By: Travon Branham on 02-21-2023 Urea nitrogen [Mass/Vol] 15 mg/dL 7-18 [facility] Thin prep Papanicolaou smear with manual screeningOrdered By: Travon Branham on 02-21-2023 Thin prep Papanicolaou smear with manual screening 18 U/L 15-37 [facility] Thin prep Papanicolaou smear with manual screening 7 5-15 [facility] THYROIDon 02-21-20[address] [place] [address] Patient: FIONA VASQUEZ Phone#: : 1965 Age: 57 Gender: F Pt. Type: Out Account: [id number] Location: Ordering: JD ROGEL Exam Date: 02/21/2023/8:16 Family Phys: TRAVON ADOLFO Charge Code: 575454 Physician: Collin Order #: [id number] Dose#: PROCEDURE: THYROID ULTRASOUND COMPARISON: None. INDICATIONS: [...] spec) [#/Vol] 1.95 10*3/uL 0.83-4.51 [facility] Basophil percentageOrdered B y: Dr. Branham on 08-30-2022 Basophils/100 WBC (Bld) 0.9 % 0-1 [facility] Bilirubin [Mass/Vol] 0.50 mg/dL 0.20-1.00 [facility] Comment on above: For patients on eltr ombopag therapy, use of Dimension [place] TBIL is not recommended. Chloride [Moles/Vol] 110 mmol/L 98-107 [facility] Eosinophils/100 WBC (Bld) 1.7 % 0-5 [facility] Glucose [Mass/Vol] 84 mg/dL 74-106 [facility] Neutrophils (Bld) [#/Vol] 2.8 10*3/uL 2.0-7.7 [facility] Neutrophils/100 WBC (Bld) 53.0 % 47-70 [facility] Potassium [Moles/Vol] 4.2 mmol/L 3.5-5.1 [facility] Protein [Mass/Vol] 7.7 g/dL 6.4-8.2 [facility] Sodium [Moles/Vol] 142 mmol/L 136-145 [facility] WBC (Bld) [#/Vol] 5.3 10*3/uL 4.4-11.0 [facility] Blood erythrocytes count (nu mber/volume)Ordered By: Dr. Branham on 08-30-2022 RBC (Bld) [#/Vol] 4.85 10*6/uL 4.2-5.4 [facility] Blood hemoglobin measurement (mass/volume)Ordered By: Dr. Branham on 08-30-2022 Hemoglobin (Bld) [Mass/Vol] 14.4 g/dL 12.0-15.0 [facility] Blood lymphocytes/100 leukoc ytesOrdered By: Dr. Branham on 08-30-2022 Lymphocytes/100 WBC (Bld) 36.8 % 19-41 [facility] Blood monocytes/100 leukocyt esOrdered By: Dr. Branham on 08-30-2022 Monocytes/100 WBC (Bld) 7.4 % 0-10 [facility] Blood platelet mean volumeOr dered By: Dr. Branham on 08-30-2022 Platelet mean volume (Bld) [Entitic vol] 10.9 fL 6.2-12.0 [facility] Determination of erythrocyte mean corpuscular volume (MCV)Ordered By: Dr. Branham on 08-30-2022 MCV (RBC) [Entitic vol] 90.5 fL 81-99 [facility] Hematocrit Auto (Bld) [Volum e fraction]Ordered By: Dr. Branham on 08-30-2022 Hematocrit (Bld) [Volume fraction] 43.9 % 37-47 [facility] Laboratory - Chemistry and C hemistry - challengeOrdered By: Dr. Branham on 08-30-2022 ALP [Catalytic activity/Vol] 77 U/L 45-117 [facility] ALT [Catalytic activity/Vol] 26 U/L 13-56 [facility] CO2 [Moles/Vol] 25.0 mmol/L 21.0-32.0 [facility] Globulin (S) [Mass/Vol] 3.5 g/dL 2.2-4.2 [facility] Urea nitrogen/Creatinine [Mass ratio] 25.0 mg/mg 10-20 [facility] Laboratory - Hematology and Cell countsOrdered By: Dr. Branham on 08-30-2022 Erythrocyte distribution width (RBC) [Entitic vol] 41.4 fL 35.1-43.9 [facility] Erythrocyte distribution width (RBC) [Ratio] 12.7 % 11.6-14.6 [facility] Immature granulocytes/100 WBC (Bld) 0.200 % 0.0-0.9 [facility] Comment on above: IG% - Immature Granu locytes (promyelocytes, myelocytes and metamyelocytes) > 1% indicates that a LEFT SHIFT is Present. MCH (RBC) [Entitic mass] 29.7 pg 27.0-32.0 [facility] Nucleated RBC/100 WBC (Bld) [Ratio] 0 % 0-5 [facility] MCHC Auto (RBC) [Mass/Vol]Or dered By: Dr. Branham on 08-30-2022 MCHC (RBC) [Mass/Vol] 32.8 g/dL 32-36 [facility] No Panel InformationOrdered By: Dr. Branham on 08-30-2022 Estimated GFR (MDRD) Amer 77 mL/min >60 [facility] Comment on above: GFR Calc Estimated GFR (MDRD) Non-Af Amer 64 mL/min >60 [facility] Comment on above: Non- GFR Calc Thyroid Stimulating Hormone (TSH) 0.52 uIU/mL 0.358-3.74 [facility] Vitamin D 25-Hydroxy 65.4 ng/mL [facility] Comment on above: Vitamin D 25(OH) Sta tus Range Deficiency <20 ng/mL (50nmol/L) Insufficiency 20 - 30 ng/mL (50 - 75 nmol/L) Sufficiency 30 - 100 ng/mL (75 - 250 nmol/L) Toxicity >100 ng/mL (>250 nmol/L) Platelets bldOrdered By: Dr. Branham on 08-30-2022 Platelets (Bld) [#/Vol] 187 10*3/uL 150-450 [facility] Serum or plasma albumin vinicius urement (mass/volume)Ordered By: Dr. Branham on 08-30-2022 Albumin [Mass/Vol] 4.2 g/dL 3.2-5.0 [facility] Serum or plasma albumin/glob ulin mass ratioOrdered By: Dr. Branham on 08-30-2022 Albumin/Globulin [Mass ratio] 1.2 {ratio} 0.9-2.4 [facility] Serum or plasma calcium vinicius urement (mass/volume)Ordered By: Dr. Branham on 08-30-2022 Calcium [Mass/Vol] 9.8 mg/dL 8.5-10.1 [facility] Serum or plasma creatinine m easurement (mass/volume)Ordered By: Dr. Branham on 08-30-2022 Creatinine [Mass/Vol] 0.96 mg/dL 0.55-1.02 [facility] Comment on above: The validity of the calculated GFR & GFRAA in patients over 70 years has not been determined. Clinical correlation is essential. Serum or plasma urea nitroge n measurement (mass/volume)Ordered By: Dr. Branham on 08-30-2022 Urea nitrogen [Mass/Vol] 24 mg/dL 7-18 [facility] Thin prep Papanicolaou smear with manual screeningOrdered By: Dr. Branham on 08-30-2022 Thin prep Papanicolaou smear with manual screening 19 U/L 15-37 [facility] Thin prep Papanicolaou smear with manual screening 7 5-15 [facility] Absolute lymphocyte counton 08-28-2021 Lymphocytes Auto (Unsp spec) [#/Vol] 2.41 10*3/uL 0.83-4.51 [facility] Work Phone: Basophil percentageon 2021 Basophils/100 WBC (Bld) 0.8 % 0-1 [facility] Work Phone: Bilirubin [Mass/Vol] 0.70 mg/dL 0.20-1.00 [facility] Work Phone: Comment on above: For patients on eltr ombopag therapy, use of Dimension [place] TBIL is not recommended. Chloride [Moles/Vol] 112 mmol/L 98-107 [facility] Work Phone: [phone] Eosinophils/100 WBC (Bld) 1.8 % 0-5 [facility] Work Phone: Glucose [Mass/Vol] 93 mg/dL 74-106 [facility] Work Phone: [phone] Neutrophils (Bld) [#/Vol] 4.5 10*3/uL 2.0-7.7 [facility] Work Phone: Neutrophils/100 WBC (Bld) 58.8 % 47-70 [facility] Work Phone: Potassium [Moles/Vol] 4.2 mmol/L 3.5-5.1 [facility] Work Phone: Protein [Mass/Vol] 7.8 g/dL 6.4-8.2 [facility] Work Phone: Sodium [Moles/Vol] 141 mmol/L 136-145 [facility] Work Phone: WBC (Bld) [#/Vol] 7.7 10*3/uL 4.4-11.0 [facility] Work Phone: Blood erythrocytes count (nu mber/volume)on 08-28-2021 RBC (Bld) [#/Vol] 4.68 10*6/uL 4.2-5.4 [facility] Work Phone: Blood hemoglobin measurement (mass/volume)on 08-28-2021 Hemoglobin (Bld) [Mass/Vol] 14.7 g/dL 12.0-15.0 [facility] Work Phone: Blood lymphocytes/100 leukoc yteson 08-28-2021 Lymphocytes/100 WBC (Bld) 31.3 % 19-41 [facility] Work Phone: Blood monocytes/100 leukocyt eson 08-28-2021 Monocytes/100 WBC (Bld) 6.9 % 0-10 [facility] Work Phone: Blood platelet mean volumeon 08-28-2021 Platelet mean volume (Bld) [Entitic vol] 9.9 fL 6.2-12.0 [facility] Work Phone: Determination of erythrocyte mean corpuscular volume (MCV)on 08-28-2021 MCV (RBC) [Entitic vol] 89.1 fL 81-99 [facility] Work Phone: Hematocrit Auto (Bld) [Volum e fraction]on 08-28-2021 Hematocrit (Bld) [Volume fraction] 41.7 % 37-47 [facility] Work Phone: Laboratory - Chemistry and C hemistry - challengeon 08-28-2021 ALP [Catalytic activity/Vol] 76 U/L 45-117 [facility] Work Phone: ALT [Catalytic activity/Vol] 36 U/L 13-56 [facility] Work Phone: CO2 [Moles/Vol] 27.0 mmol/L 21.0-32.0 [facility] Work Phone: Globulin (S) [Mass/Vol] 3.5 g/dL 2.2-4.2 [facility] Work Phone: Urea nitrogen/Creatinine [Mass ratio] 22.1 mg/mg 10-20 [facility] Work Phone: Laboratory - Hematology and Cell countson 08-28-2021 Erythrocyte distribution width (RBC) [Entitic vol] 41.8 fL 35.1-43.9 [facility] Work Phone: Erythrocyte distribution width (RBC) [Ratio] 12.8 % 11.6-14.6 [facility] Work Phone: Immature granulocytes/100 WBC (Bld) 0.400 % 0.0-0.9 [facility] Work Phone: Comment on above: IG% - Immature Granu locytes (promyelocytes, myelocytes and metamyelocytes) > 1% indicates that a LEFT SHIFT is Present. MCH (RBC) [Entitic mass] 31.4 pg 27.0-32.0 [facility] Work Phone: Nucleated RBC/100 WBC (Bld) [Ratio] 0 % 0-5 [facility] Work Phone: MCHC Auto (RBC) [Mass/Vol]on 02-14-2022 MCHC (RBC) [Mass/Vol] 35.3 g/dL 32-36 [facility] Work Phone: No Panel Informationon 08-28 Estimated GFR (MDRD) Amer 83 mL/min >60 [facility] Work Phone: Comment on above: GFR Calc Estimated GFR (MDRD) Non-Af Amer 69 mL/min >60 [facility] Work Phone: Comment on above: Non- GFR Calc Hepatitis C Antibody Non-Reactive Nonreactive [facility] Work Phone: Comment on above: Non Reactive: < 0.8 Equivocal: >/= 0.8 to < 1.0 Reactive: >/= 1.0The [facility] recommends that a reactive/equivocal HCV antibody result be followed up by the HCV Nucleic Acid Amplificationtest (396167) Thyroid Stimulating Hormone (TSH) 1.29 uIU/mL 0.358-3.74 [facility] Work Phone: Vitamin D 25-Hydroxy 49.9 ng/mL [facility] Work Phone: Comment on above: Vitamin D 25(OH) Sta tus Range Deficiency <20 ng/mL (50nmol/L) Insufficiency 20 - 30 ng/mL (50 - 75 nmol/L) Sufficiency 30 - 100 ng/mL (75 - 250 nmol/L) Toxicity >100 ng/mL (>250 nmol/L) Platelets bldon 08-28-2021 Platelets (Bld) [#/Vol] 197 10*3/uL 150-450 [facility] Work Phone: Serum or plasma albumin vinicius urement (mass/volume)on 08-28-2021 Albumin [Mass/Vol] 4.3 g/dL 3.2-5.0 [facility] Work Phone: Serum or plasma albumin/glob ulin mass ratioon 08-28-2021 Albumin/Globulin [Mass ratio] 1.2 {ratio} 0.9-2.4 [facility] Work Phone: Serum or plasma calcium vinicius urement (mass/volume)on 08-28-2021 Calcium [Mass/Vol] 9.2 mg/dL 8.5-10.1 [facility] Work Phone: Serum or plasma creatinine m easurement (mass/volume)on 08-28-2021 Creatinine [Mass/Vol] 0.90 mg/dL 0.55-1.02 [facility] Work Phone: Comment on above: The validity of the calculated GFR & GFRAA in patients over 70 years has not been determined. Clinical correlation is essential. Serum or plasma urea nitroge n measurement (mass/volume)on 08-28-2021 Urea nitrogen [Mass/Vol] 20 mg/dL 7-18 [facility] Work Phone: Thin prep Papanicolaou smear with manual screeningon 08-28-2021 Thin prep Papanicolaou smear with manual screening 28 U/L 15-37 [facility] Work Phone: Thin prep Papanicolaou smear with manual screening 2 5-15 [facility] Work Phone: CNOVon 12-05-2017 CNOV Office Visit (WOOB) FIONA VASQUEZ ([id number]) 1965 F Date Time Provider Department 12/05/17 11:00 AM JESSI CUBA During your visit today, we recorded the following information about you: Blood pressure Weight 136/80 87.7 kg Jessi Cuba MD 12/05/2017 4:24 PM Signed Fiona Vasquez is a 52 year old female who presents for PMB. HPI: Patient presents with PMB. She had a testerosterone AND estrogen pellet injected by a provider in [facility]. Patient reports the pellets were placed [...] cancer She plans to f/u with the reweaver who prescribed the medications Jessi Cuba MD [...] of cervix [Z12.4] Order(s): FEMALE PELVIS TRANSVAG [[id number]] Order #: [id number] FUTURE FEMALE PELVIS TRANSABD LTD [[id number]] Order #: [id number] FUTURE PAP FLUID CERVICAL SCREENING [[id number]] Order #: [id number] Prescriptions as of 12/05/2017 Sig: METOPROLOL TARTRATE [...] by JESSI CUBA MD on 12/05/17 Normal [facility] CYTOLOGYon 12-05-2017 CYTOLOGY ADDENDUM PRESENT Specimen originated from [facility] Specimen #: [id number] Submitting Physician: JESSI CUBA MD SPECIMEN SUBMITTED [...] from every slide are reviewed by a analog ic design architect. Olga Liu M.D. (Electronic Signature) ADDENDUM Date Ordered: 2018 Date Reported: 2018 The purpose of this addendum is to correct the signout location. WEI/jag/08/12/2018 Addendum Pathologist: Olga Liu M.D. Electronic Signature ADDITIONAL PROCEDURE(S) HUMAN PAPILLOMA VIRUS Date Ordered: 12/10/2017 Date Reported: 12/11/2017 Procedure Results and Interpretation Negative for HPV DNA high risk type 16 by PCR. Negative for HPV DNA high risk type 18 by PCR. Negative for HPV DNA high risk types: 31,33,35,39,45,51,52,56 ,58,59,66,68 by PCR. This test was developed and its performance characteristics determined by [facility]'s [facility] [place] ([facility]). It has not been cleared or approved by the FDA. [facility] is regulated under CLIA as qualified to perform high-complexity testing. This test is used for clinical purposes. It should not be regarded as investigational or for research. CLINICAL DATA ROUTINE EXAM, HPV Testing: Yes, automatic HPV patients over 30 Date of Last Menstrual Period: Postmenopausal GROSS DESCRIPTION Glacial Acetic Acid added. STAINS A: CERVICAL, SCREENING, FLUID THIN PREP JAVA SYBASE DEVELOPER x 2 Date of Report: 12/16/2017 Date of Procedure: 12/05/2017 Date of Receipt: 12/10/2017 Submitted by: JESSI CUBA MD Location: [facility] Diagnostic interpretation performed at [facility], [address] [place] [address]. The Pap Smear is a screening test for cervical cancer. False negative results occur with all screening tests, emphasizing the need for rescreening at recommended intervals, and clinical correlation. Normal [facility] HPV w/Genotypeon 12-05-2017 HPV HighRisk Other Negative for HPV DNA high risk types: 31,33,35,39,45,51,52,56 ,58,59,66,68 by PCR. Normal [facility] Comment on above: Result Comment: This test was developed and its performance characteristics determined by [facility]'s [facility] [place] ([facility]). It has not been cleared or approved by the FDA. [facility] is regulated under CLIA as qualified to perform high-complexity testing. This test is used for clinical purposes. It should not be regarded as investigational or for research. Performed By: #### H PVHRR #### [facility] [address] [place] [address] HPV HighRisk Type 16 Negative Normal [facility] Comment on above: Performed By: #### H PVHRR #### [facility] [address] [place] [address] HPV HighRisk Type 18 Negative Normal [facility] Comment on above: Performed By: #### H PVHRR #### [facility] [place] [address] PROGRESSon 12-05-2017 Protein mass conc HNO ID: [id number] Author: Jessi Cuba Service: (none) Author Type: Physician Type: Progress Notes Filed: 12/05/2017 4:24 PM Note Text: Fiona Vasquez is a 52 year old female who presents for PMB. HPI: Patient presents with PMB. She had a testerosterone AND estrogen pellet injected by a provider in [facility]. Patient reports the pellets were placed [...] cancer She plans to f/u with the reweaver who prescribed the medications Jessi Cuba MD [facility] Vital Signs Date Time Vital Sign Value Performing Clinician Faci lity 12-19-2024 12:07-0400 Diastolic blood pressure 69 mm[Hg] Dr. Travon Branham MD Work Phone: [facility] 12-19-2024 12:07-0400 Heart rate 84 /min Dr. Travon Branham MD Work Phone: [facility] 12-19-2024 12:07-0400 Respiratory rate 18 /min Dr. Travon Branham MD Work Phone: [facility] 12-19-2024 12:07-0400 SaO2% (BldA) [Mass fraction] 96 % Dr. Travon Branham MD Work Phone: [facility] 12-19-2024 12:07-0400 Systolic blood pressure 117 mm[Hg] Dr. Travon Branham MD Work Phone: [facility] 12-19-2024 11:09-0400 Body temperature 98 [degF] Dr. Travon Branham MD Work Phone: [facility] 12-19-2024 10:08-0400 Body height 165.[address] Travon Branham MD Work Phone: [facility] 12-19-2024 10:08-0400 Body mass index (BMI) [Ratio] 31 kg/m2 Dr. Travon Branham MD Work Phone: [facility] 12-19-2024 10:08-0400 Body weight 84.[address] Travon Branham MD Work Phone: [facility] 10-29-2024 14:05-0400 Body height 165.[address] Travon Branham MD Work Phone: [phone] [place] [address] 10-29-2024 14:05-0400 Body mass index (BMI) [Ratio] 30.6 kg/m2 Dr. Travon Branham MD Work Phone: [phone] [place] [address] 10-29-2024 14:05-0400 Body weight 83.[address] Travon Brahnam MD Work Phone: [phone] [place] [address] 10-29-2024 14:05-0400 Diastolic blood pressure 68 mm[Hg] Dr. Travon Branham MD Work Phone: 5(855)333-420918 [place] [address] 10-29-2024 14:05-0400 Heart rate 89 /min Dr. Travon Branham MD Work Phone: 9(816)653-011418 [place] [address] 10-29-2024 14:05-0400 Respiratory rate 16 /min Dr. Travon Branham MD Work Phone: 7(945)273-422618 [place] [address] 10-29-2024 14:05-0400 Systolic blood pressure 115 mm[Hg] Dr. Travon Branham MD Work Phone: 4(233)485-664118 [place] [address] 09-11-2023 13:00-0500 Body height 165.[address] Travon Branham Work Phone: [facility] 09-11-2023 13:00-0500 Body mass index (BMI) [Ratio] 31.1 kg/m2 Dr. Travon Branham Work Phone: 3(284)926-334518 [place] [address] 09-11-2023 13:00-0500 Body weight 85.[address] Travon Branham Work Phone: 9(653)603-510618 [place] [address] 09-11-2023 13:00-0500 Diastolic blood pressure 76 mm[Hg] Dr. Travon Branham Work Phone: [facility] 09-11-2023 13:00-0500 Heart rate 82 /min Dr. Travon Branham Work Phone: [facility] 09-11-2023 13:00-0500 Respiratory rate 14 /min Dr. Travon Branham Work Phone: [facility] 09-11-2023 13:00-0500 Systolic blood pressure 119 mm[Hg] Dr. Travon Branham Work Phone: [facility] 07-25-2023 12:34-0500 Heart rate 112 /min Dr. Travon Branham Work Phone: [facility] 07-25-2023 11:15-0500 Body temperature 97.8 [degF] Dr. Travon Branham Work Phone: 7(448)522-736418 [place] [address] 07-25-2023 11:15-0500 Diastolic blood pressure 61 mm[Hg] Dr. Travon Branham Work Phone: [facility] 07-25-2023 11:15-0500 Respiratory rate 20 /min Dr. Travon Branham Work Phone: [facility] 07-25-2023 11:15-0500 SaO2% (BldA) [Mass fraction] 96 % Dr. Travon Branham Work Phone: [facility] 07-25-2023 11:15-0500 Systolic blood pressure 109 mm[Hg] Dr. Travon Branham Work Phone: [facility] 07-24-2023 12:01-0500 Body height 165.[address] Travon Branham Work Phone: [facility] 07-24-2023 12:01-0500 Body mass index (BMI) [Ratio] 31.5 kg/m2 Dr. Travon Branham Work Phone: [facility] 07-24-2023 12:01-0500 Body weight 85.[address] Travon Branham Work Phone: [facility] Encounters Encounter Date Encounter Type Care Provider Facility Start: 12-22-2024 End: 12-22-[address] Travon Branham MD Work Phone: [facility] Work Phone: Start: 12-22-2024 End: 12-22-[address] Travon Branham MD -Radiology [facility] Work Phone: Start: 12-22-2024 End: 12-22-2024 ambulatory Travon Nelson Nunezok Facility:[facility] Start: 12-19-2024 End: 12-19-2024 Emergency department patient visit Dr. Travon Branham MD Work Phone: -Emergency Department Work Phone: Start: 12-10-2024 End: 12-10-[address] Travon Branham MD Work Phone: [facility] Work Phone: Start: 12-10-2024 End: 12-10-[address] Travon Branham MD -Laboratory Work Phone: Start: 12-10-2024 End: 12-10-[facility] Start: 10-29-2024 End: 10-29-2024 Patient encounter procedure Jenae PAGAN -[facility] Work Phone: Start: 10-29-2024 End: 10-29-2024 ambulatory Travon Nelson Branham Facility:[facility] Start: 10-07-2024 End: 10-07-[address] Travon Branham MD Work Phone: [facility] Work Phone: Start: 10-07-2024 End: 10-07-[address] Travon Branham MD -Outpatient Breast Imaging Work Phone: Start: 10-07-2024 End: 10-07-2024 ambulatory Travon Branham Facility:[facility] Start: 09-08-2024 End: 09-08-[address] Travon Branham MD Work Phone: [facility] Work Phone: Start: 09-08-2024 End: 09-08-[address] Travon Branham MD -Laboratory, Phy Office 3rd Flr Start: 09-08-2024 End: 09-08-2024 ambulatory Travon Branham Facility:[facility] Start: 05-08-2024 ambulatory Desmond Miranda Facility:[facility] Start: 05-08-2024 End: 05-09-2024 Evaluation and management of inpatient Travon Branham Facility:[facility] Start: 02-25-2024 End: 02-25-2024 ambulatory [facility] Facility:[facility] Start: 10-07-2023 End: 10-07-[address] Travon Branham Work Phone: [facility] Work Phone: Start: 10-07-2023 End: 10-07-[address] Travon Branham Work Phone: [facility]-Outpatient Breast Imaging Work Phone: Start: 09-11-2023 End: 09-11-[address] Travon Branham Work Phone: [facility] Work Phone: Start: 09-03-2023 End: 09-03-[address] Travon Branham Work Phone: [facility] Work Phone: Start: 09-03-2023 End: 09-03-[address] Travon Branham Work Phone: [facility]-Laboratory, Phy Office 3rd Flr Start: 07-25-2023 Non-patient / Non-visit Dr. Bill Branham Work Phone: [facility] Work Phone: Start: 07-24-2023 Non-patient / Non-visit Dr. Bill Branham Work Phone: [facility] Start: 07-24-2023 Non-patient / Non-visit Dr. Bill Branham Work Phone: [facility] Work Phone: Start: 07-24-2023 End: 07-25-2023 Evaluation and management of inpatient Dr. Travon Branham Work Phone: [facility]-Progressive Care Unit Work Phone: Start: 02-21-2023 End: 02-21-2023 ambulatory [facility] Work Phone: Start: 02-21-2023 End: 02-21-2023 Patient encounter procedure [facility]-Laboratory, Phy Office 3rd Flr Start: 02-21-2023 End: 02-21-2023 [facility] Start: 08-30-2022 End: 08-30-2022 ambulatory [facility] Work Phone: Start: 08-30-2022 End: 08-30-2022 Patient encounter procedure [facility]-Laboratory, Phy Office 3rd Flr Start: 10-12-2021 End: 10-12-2021 Patient encounter procedure [facility]-Outpatient Breast Imaging Start: 08-28-2021 End: 08-28-2021 Patient encounter procedure [facility]-Laboratory, Phy Office 3rd Flr Start: 12-05-2017 End: 12-06-2017 Patient encounter procedure JESSI CUBA [facility] Perez Procedures Date Procedure Procedure Detail Performing Clinician Start: 12-22-2024 X-ray of lumbosacral spine Dr. Travon Branahm MD Work Phone: Start: 12-19-2024 Urnls dip stick/tabl et reagent auto microscopy Dr. Travon Branham MD Work Phone: Start: 12-19-2024 Computed tomography of abdomen and pelvis with intravenous contrast Dr. Travon Branham MD Work Phone: Start: 12-19-[address] Travon Branham MD Work Phone: Start: 10-07-2024 Screening mammography Ch[place] Branham MD Work Phone: Start: 10-07-2023 Screening mammography Chico Branham Work Phone: Start: 07-24-2023 CT angiography of ch est with contrast Dr. Travon Branham Work Phone: Start: 07-24-2023 Plain chest X-ray Dr. Sue Branham Work Phone: Start: 10-12-2021 Screening mammography Plan of Treatment Date Care Activity Detail Author Start: 12-19-2024 [facility] Start: 07-25-2023 Care planning and pr oblem solving actions [facility] Start: 07-25-2023 Patient discharge [facility] Start: 07-25-2023 Care planning and pr oblem solving actions [facility] Start: 07-24-2023 End: 07-25-2023 [facility] Start: 07-24-2023 Ambulation without limitation [facility] Start: 07-24-2023 Assessment of risk o f venous thromboembolism [facility] Start: 07-24-2023 Insertion of cathete r into peripheral vein [facility] Start: 07-24-2023 Measuring intake and output [facility] Start: 07-24-2023 Oxygen therapy [facility] Start: 07-24-2023 Providing care accor ding to standard [facility] Start: 07-24-2023 Following clinical p athway protocol [facility] Start: 07-24-2023 Admission procedure [facility] Start: 07-24-2023 Hospital admission, emergency, from emergency room, medical nature [facility] Start: 07-24-2023 [facility] Patient referral [facility] Work Phone: Payers Date Payer Category Payer Self-pay [id number] 2024 Unknown [id number] 1965 Unknown [id number] Private Health Insurance [facility] [id number] Unknown [id number] Unknown [id number]. 462 Unknown [id number]. 462 Unknown [id number]. 462 Unknown [id number]. 462 Unknown [id number] [id number]. 462 Unknown [id number] [id number]. 462 Unknown [id number] [id number]. 462 Unknown [id number] [id number]. 462 Unknown [id number] [id number]. 462 Unknown [id number]. 462 Social History Date Type Detail Facility [facility] Work Phone: Start: 1965 Sex Assigned At Female [facility] Start: 07-24-2023 End: 09-11-2023 Tobacco smoking status NHIS Unknown if ever smoked [facility] Start: 05-08-2024 End: 12-19-2024 Tobacco smoking status NHIS Never smoked tobacco (finding) [facility] Start: 09-23-2024 End: 10-12-2024 Sex Female (finding) [facility] Functional Status Date Assessment Result Facility 07-25-2023 Functional status Ambulates;Bathroom Priv ilege [facility] Work Phone: Mental Status Date Assessment Result Facility 07-25-2023 Cognitive function Voice/Name [facility] Work Phone: Clinical Notes 07-24-2023 to 12-23-2024 Note Date & Type Note Facility 12-23-2024 Radiology Diagnostic study note [facility] Imaging Services [address] [place], [place] [id number] L/S Spine Min 4 Views MR#: [id number] Acct: [id number] Name: FIONA VASQUEZ Rep #: [id number] : 1965 F 59 From: Allan Moore MD PCP: Dr. Travon Branham MD Status: [facility] TAM Study:L/S Spine Min 4 Views Date of Exam: 12/22/24 Exam# [id number] Ordering Dr: Travon Branham MD PROCEDURE: L/S SPINE MIN 4 VIEWS 12/22/2024 REASON FOR EXAM: LOW BACK PAIN TECHNIQUE: Standing AP view(s) of the thoracic and lumbar spine. COMPARISON: None. FINDINGS: Mild dextroscoliosis apex at L3. Grade 1 anterolisthesis of L4 on L5 measuring 3.2 mm without definite evidence of pars defects. There are diffuse spondylotic changes. Findings are demonstrated to by diffuse disc space narrowing, osteophyte formation and degenerative endplate sclerosis. There is diffuse facet joint arthropathy with secondary bilateral neural foramina narrowing. No fracture or dislocation is seen. No aggressive lytic or blastic bony lesion is noted. RAD/L/S Spine Min 4 Views IMPRESSION: Grade 1 anterolisthesis of L4 on L5 without definite evidence of pars defects. Spondylosis. Reading Location: JD CC: Dr. Travon Branham MD ~ Tile Setter: Signed [facility] 12-19-2024 Discharge summary [facility] 12-19-2024 Radiology Diagnostic study note [facility] Imaging Services [address] [place] [address] Abdomen/Pelvis W IV Cont ONLY MR#: [id number] Acct: [id number] Name: FIONA VASQUEZ Rep #: [id number] : 1965 F 59 From: Debbie Mcclelland MD PCP: Dr. Tarvon Branham MD Status: REG E R Study:Abdomen/Pelvis W IV Cont ONLY Date of E xam: 12/19/24 Exam# [id number] Ordering Dr: Sue Esquivel DO PROCEDURE: ABDOMEN/PELVIS [...] stool. Reading Location: JUAN CARLOS CC: Dr. Travon Branham MD; Dr. Freddie Esquivel DO ~ Tile Setter: Signed [facility] 10-29-2024 Evaluation note Diagnosis Onset Date Resolution Atrial fibrillation acute October 29, 2024 1:46pm [facility] Work Phone: 1(422) 490-209710-26-2024 [facility] Medical Records Department [address] [place] [address] Discharge Summary 05/09/24 1642 MR#: [id number] Acct: [id number] Name: FIONA VASQUEZ Rep #: [id number] : 1965 58 From: Desmond Miranda DO PCP: Dr. Travon Branham MD Status:ADM IN Location: [place] [address] Providers Date of Admission: 05/08/24 Primary Care Physician: Dr. Travon Branham MD Consultations 05/09/24 11:48 Consult: Cardiology [...] diltiazem drip and wean as tolerated. Her [id number] is 2 so we will resume apixaban. Plan Hypothyroidism: Continue with her thyroid replacement VTE prophylaxis: Not indicated as patient is anticoagulated. Medications at Discharge Home Medications thyroid (pork) 60 mg tablet (Sapulpa Thyroid) 60 mg PO DAILY THYROID 07/24/23 [...] He recommends a follow-up with the the [facility]. Weight / BMI Weight Weight: [...] Attending Provider: Desmond Miranda Primary Care Provider: Travon Branham Chi Consulting Providers: Margret Morales Discharge [...] mg subc (more content not included)...[facility]01-11-2024 Discharge summary Author Quinn Arnold [facility] July 25, 2023 11:32am Note Date/Time July 25, 2023 1 1:32am [facility] Medical Records Department [address] [place] [address] Discharge Summary 07/25/23 1122 MR#: [id number] Acct: [id number] Name: FIONA VASQUEZ Rep #:[id number] : 1965 57 From: Quinn Arnold MD PCP: Dr. Travon Branham MD Status:ADM I N Location: [place] [address] Providers Date of Admission: 07/24/23 Date of Discharge: 07/25/23 Primary Care Physician: Dr. Travon Branham MD Reason For Visit: A-FIB WITH [...] ordered 2D echo and Cardizem drip. Patient's [id number] Score for Atrial Fibrillation Stroke Riskwas only 1 patient was therefore placed on only antiplatelet aspirin. ? 07/25/2023;Patient seen heart rate relatively well-controlled. Plan for patient to be discharged home with Cardizem and apixaban for subsequent follow-up with cardiology for possible cardioversion as outpatient 2. Hypothyroidism ? Patient is on Sapulpa Thyroid 3. Class I obesity with BMI of 32 ? Weight loss advised 4. DVT prophylaxis ? Lovenox Time spent in the patient's overall evaluation,decision-making process, review of diagnostic data, adjustment of management, discussion with other providers, nursing nursing and ancillary staff involved in patient's care documentation,40 Minutes Medications at Discharge Home Medications thyroid (pork) 60 mg tablet (Sapulpa Thyroid) 60 mg PO DAILY THYROID 07/24/23 [...] % (Auto) 61.4, Lymph % (Auto) 28.5, [place] % (Auto) 7.8, Eos % (Auto) 1.4, [...] veins. Ordering Physician: Quinn Arnold Referring Physician: Travon Branham Chi Performed By: Dwain Swann, RVT Chest CTA 07/24/23 16:00 IMPRESSION: Negative [...] Attending Provider: Quinn Arnold Primary Care Provider: Travon Branham Chi Discharge Orders/Prescriptions Prescriptions: New diltiazem HCl 120 mg Capsule,Extended Release 24hr 120 mg PO DAILY Qty: 6 0RF Eliquis 5 mg Tablet 5 mg PO BID 30 Days Qty: 60 0RF Continued thyroid (pork) [Sapulpa Thyroid] 60 mg tablet 60 mg PO DAILY metoprolol succinate 25 mg tablet extended release 24 hr 25 mg PO DAILY Qty: 60 0RF Referrals / Follow Up: Jacinto Diane MD [Med Staff - Active Staff] - Within 2 Weeks Travon Branham Chi, MD [Primary Care Provider] - Within 1 Week Disposition Disposition (needs filled in before D/C Order can be placed): Home, Self Care Charges/Coding Visit Charges Inpatient E&M: 08572 Disch Hosp >30min 07/25/23 1132 <Electronically signed by Quinn Arnold MD> Cosigner Signature (if applicable): CC: Dr. Quinn Arnodl MD; Dr. Travon Branham MD~ Signed [facility] Work Phone: 1(856) 835-722201-11-2024 Progress note Author Quinn Arnold [facility] July 25, 2023 10:31am Note Date/Time July 25, 2023 9 :32am [facility] Medical Records Department [address] [place] [address] Progress Note - Hospitalist 07/25/23 0932 MR#: [id number] Acct: [id number] Name: FIONA VASQUEZ Rep #:[id number] : 1965 57 From: Quinn Arnold MD PCP: Dr. Travon Branham MD Status:ADM I N Location: [place] [address] Reason for Visit Reason for Visit: Diagnoses [...] % (Auto) 61.3, Lymph % (Auto) 30.1, [place] % (Auto) 6.7, Eos % (Auto) 1.0, [...] % (Auto) 61.4, Lymph % (Auto) 28.5, [place] % (Auto) 7.8, Eos % (Auto) 1.4, [...] veins. Ordering Physician: Quinn Arnold Referring Physician: Travon Branham Chi Performed By: Dwain Swann RVT [...] ordered 2D echo and Cardizem drip. Patient's [id number] Score for Atrial Fibrillation Stroke Riskwas only 1 patient was therefore placed on only antiplatelet aspirin. ? 07/25/2023;Patient seen heart rate relatively well-controlled. Plan for patient to be discharged home with Cardizem and apixaban for subsequent follow-up with cardiology for possible cardioversion as outpatient 2. Hypothyroidism ? Patient is on Sap[place]pa Thyroid 3. Class I obesity with BMI of 32 ? Weight loss advised 4. DVT prophylaxis ? Lovenox Time spent in the patient's overall evaluation,decision-making process, review of diagnostic data, adjustment of management, discussion with other providers, nursing nursing and ancillary staff involved in patient's care documentation,40 Minutes Charges/Coding Visit Charges Inpatient E&M: 71575 Subs Hosp L2 07/25/23 1031 <Electronically signed by Quinn Arnold MD> Cosigner Signature (if applicable): CC: ~ Signed [facility] Work Phone: 1(486) 340-122901-10-2024 History and physical note Author Quinn Arnold [facility] July 24, 2023 11:42am Note Date/Time July 24, 2023 1 1:18am [facility] Medical Records Department [address] [facility] [place] [address] H&P Exam - Hospitalist 07/24/23 1118 MR#: [id number] Acct: [id number] Name: FIONA VASQUEZ Rep #:[id number] : 1965 57 From: Quinn Arnold MD PCP: Dr. Travon Branham MD Status:ADM I N Location: [place] [address] HPI - General General Date of Admission: 07/24/23 Date of Service: 07/24/23 Chief Complaint: Lightheadedness HPI Narrative FIONA VASQUEZ, is a 57 F who presents with lightheadedness. Patient has past medical history significant for hypothyroidism for which patient takes Sapulpa Thyroid. Patient also has history of supraventricular [...] to a monitored bed for further management [facility] Home Medications metoprolol succinate 25 mg tablet,extended release 24 hr 25 mg PO DAILY BLOOD PRESSURE 07/24/23 [History Last Taken Unknown] thyroid (pork) 60 mg tablet (Sapulpa Thyroid) 60 mg PO DAILY THYROID 07/24/23 [...] % (Auto) 61.3, Lymph % (Auto) 30.1, [place] % (Auto) 6.7, Eos % (Auto) 1.0, [...] ordered 2D echo and Cardizem drip. Patient's [id number] Score for Atrial Fibrillation Stroke Riskwas only 1 patient was therefore placed on only antiplatelet aspirin. 2. Hypothyroidism ? Patient is on Sapulpa Thyroid 3. Class I obesity with BMI of 32 ? Weight loss advised 4. DVT prophylaxis ? Lovenox Time spent in the patient's overall evaluation,decision-making process, review of diagnostic data, adjustment of management, discussion with other providers, nursing nursing and ancillary staff involved in patient's care documentation, 55 Minutes Charges/Coding Visit Charges Inpatient E&M: 28968 Init Hosp L2 07/24/23 1142 <Electronically signed by Quinn Arnold MD> Cosigner Signature (if applicable): CC: Dr. Quinn Arnold MD; Dr. Travon Branham MD~ Signed [facility] Work Phone: 1(691) 623-963201-10-2024 Discharge summary Author Jose Maria Smith [facility] July 24, 2023 11:18am Note Date/Time July 24, 2023 9 :52am [facility] Medical Records Department [address] [place] [address] Emergency Department Summary 07/24/23 MR#: [id number] Acct: [id number] Name: FIONA VASQUEZ Rep #:[id number] : 1965 57 From: Jose Maria Smith MD PCP: Dr. Travon Branham MD Status:REG E R Location: ED [...] Taken Unknown] thyroid (pork) 60 mg tablet (Sapulpa Thyroid) 60 mg PO DAILY 07/24/23 [History [...] % (Auto) 61.3 Lymph % (Auto) 30.1 [place] % (Auto) 6.7 Eos % (Auto) 1.0 [...] ventricular response Disposition Disposition: Acute Care Hospital [facility] What to do if you have Problems For any increased pain, shortness of breath, bleeding, nausea or vomiting, chestpain, or any unexpected problems, contact your Primary Care Provider. Call [facility] ([phone]) or report to the closest Emergency Room. Call 911 if necessary. 07/24/23 1118 <Electronically signed by Jose Maria Smith MD> Cosigner Signature (if applicable): CC: Dr. Travon Branham MD ~ Signed [facility] Work Phone: Consult note Author Angeline Romero [facility] July 25, 2023 4:49pm Note Date/Time July 25, 2023 4 :49pm [facility] Medical Records Department [address] [place] [address] Counseling Note - Pharmacy 07/25/23 1648 MR#: [id number] Acct: [id number] Name: FIONA VASQUEZ Rep #:[id number] : 1965 57 From: Angeline Romero PCP: Dr. Travon Branham MD Status:ADM I N Y Location: [place] [address] Pharmacy [facility] Service has performed discharge medication reconciliation [...] Home Medications thyroid (pork) 60 mg tablet (Sapulpa Thyroid) 60 mg PO DAILY THYROID 07/24/23 [...] applicable): Date CC: ~ Signed [facility] Work Phone: Discharge summary Author Freddie Esquivel [facility] Note Date/Time December 19, 2024 12:[address] [facility] Medical Records Department [address] [place] [address] Emergency Department Summary 12/19/24 MR#: [id number] Acct: [id number] Name: FIONA VASQUEZ Rep #:[id number] : 1965 59 From: Freddie Esquivel DO PCP: Dr. Travon Branham MD Status:REG E R Location: ED [...] abdominal surgeries including 3 C-sections and abdominoplasty. [facility] Medical History Hyperlipidemia Atrial fibrillation Fatigue Familial hypercholesterolemia due to heterozygous low density lipoprotein (LDL) receptor mutation Osteoarthritis Tachycardia Vitamin D deficiency Atrophic vaginitis Morbid obesity Hypothyroid Syncope Home Medications ?Medication ?Instructions ?Recorded ?Last Taken ?Type thyroid (pork) 60 mg tablet 60 mg PO DAILY THYROID 05/07 Unknown History ([place] Thyroid) cholecalciferol (vitamin D3) 25 25 mcg [...] follow commands knew that she was at [facility] the year is 2024 Skin: Warm, dry, [...] % (Auto) 69.2 Lymph % (Auto) 23.2 [place] % (Auto) 5.9 Eos % (Auto) 0.8 [...] Sl. Cloudy Urine pH 6.5 Ur Specific Kiana 1.010 Urine Protein Negative Urine Glucose (UA) [...] PO DAILY Qty: 1 0RF thyroid (pork) [[place] Thyroid] 60 mg tablet 60 mg PO DAILY metoprolol tartrate 25 mg Tablet 25 mg PO BID Qty: 60 0RF Primary Care Provider: Travon Branham Chi Referrals: Travon Branham Chi, MD [Primary Care Provider] - [...] were sent to your pharmacy Print Language: Emirati Disposition Disposition: Home, Self Care What to do if you have Problems For any increased pain, shortness of breath, bleeding, nausea or vomiting, chestpain, or any unexpected problems, contact your Primary Care Provider. Call [facility] ([phone]) or report to the closest Emergency Room. Call 911 if necessary. 12/19/24 1224 <Electronically signed by Freddie Esquivel DO> Cosigner Signature (if applicable): CC: Dr. Travon Branham MD ~ Signed [facility] Work Phone: Evaluation noteNo assessment information available [facility] Work Phone: Evaluation note* Diagnosis Onset Date Resolution Status Atrial fibrillation with rapid ventricular response acute Family history of atrial dilatation acute Hx of thyroid disease acute [facility] Work Phone: Evaluation note* Diagnosis Onset Date Resolution Status Atrial fibrillation with rapid ventricular response resolved Family history of atrial dilatation resolved [facility] Work Phone: Evaluation note* Diagnosis Onset Date Resolution Status Atrial fibrillation with rapid ventricular response resolved Family history of atrial dilatation resolved Atrial fibrillation acute [facility] Work Phone: Hospital Discharge instructions Additional Instructions [...] as [facility]: Reason for referral (narrative)No reason for referral information availableW[facility] Work Phone: Summary Purpose Family History No Family History Records Found Relationship Condition Age at Onset Recorded Date/T gwendolyn brother Heart failure Unknown mother Viral hepatitis A without hepatic coma Un known brother Atrial fibrillation Unknown sister Atrial fibrillation Unknown father Malignant neoplasm Unknown Advance Directives No Advanced Directives Records Found Advance Directive Response Recorded Date/ Time Name of Medical Power of Appraiser Personal Property Dain [facility] July 24, 2023 12:05pm Living Will Yes July 24 12:05pm Power of Appraiser Personal Property Yes July 24, 2023 12:05pm Advance Directive Response Recorded Date/ Time Name of Medical Power of Appraiser [facility] July 24, 2023 1:05pm Living Will Yes July 24 1:05pm Power of Appraiser Personal Property Yes July 24, 2023 1:05pm Advance Directive Response Recorded Date/ Time Living Will Yes July 24 1:05pm Do you have a Healthcare Power of Appraiser Personal Property? Yes July 24, 2023 1:05pm Do you have a Healthcare Power of Appraiser Personal Property? No December 19, 2024 10:07am Advance Directive Response Recorded Date/ Time Living Will Yes July 24 1:05pm Do you have a Healthcare Power of Appraiser Personal Property? Yes July 24, 2023 1:05pm Chief Complaint and Reason for Visit Chief Complaint Admit Date SCREENING October 07, 2024 10: 31am 1 Y FU October 29, 2024 1:4 6pm Reason for Visit Admit Date Atrial fibrillation October 29, 2024 1:4 6pm Chief Complaint SCREENING Chief Complaint A-FIB WITH [...] A-FIB WITH RVR [place] AFIB RVR ([facility]) SCREEN Reason for Visit Atrial fibrillation with rapid ventricular response Family history of atrial dilatation Atrial fibrillation Chief Complaint Admit Date SCREENING October 07, 2024 10: 31am Chief Complaint Admit Date SCREENING October 07, 2024 10: 31am 1 Y FU October 29, 2024 1:4 6pm flank pain December 19, 2024 10:07 am Chief Complaint Admit Date SCREENING October 07, 2024 10: 31am 1 Y FU October 29, 2024 1:4 6pm flank pain December 19, 2024 10:07 am LOW BACK PAIN December 22, 2024 3:17 pm Additional Source Comments INFORMATION SOURCE (unrecogn ized section and content) DATE CREATED AUTHOR 08/27/2018 [facility] DATE CREATED AUTHOR AUTHOR'S ORGANIZ ATION 02/23/2023 [facility] DATE CREATED AUTHOR AUTHOR'S ORGANIZ ATION 01/01/2025 [facility] Goals (unrecognized section and content) Goals [...] Guilherme Epperson MD Family Provider Active Dr. Traovn Branham MD Primary Care Provider Active Team Status: Inactive Member Role Status Dates Dr. Travon Branham MD Primary Care Provider, Attending Provider Active Team Status: Active Member Role Status Dates Dr. Travon Branham MD Primary Care Provider Active Dr. Jose Maria Smith MD Emergency Provider Active Dr. Quinn Arnold MD Admit Provider, At tending Provider, Other Provider Active Team Status: Active Member Role Status Dates Dr. Travon Branham MD Primary Care Provider Active Dr. Alex Patel MD Attending Provider Active Team Status: Active Member Role Status Dates Dr. Travon Branham MD Primary Care Provider Active Dr. aJcinto Diane MD Attending Provider Active Team Status: Inactive Member Role Status Dates Dr. Travon Branham MD Primary Care Provider Active Dr. Jose Maria Smith MD Emergency Provider Active Dr. Quinn Arnold MD Admit Provider, Attending Provid er Active Team Status: Active Member Role Status Dates Dr. Travon Branham MD Primary Care Provider Active Dr. Alex Patel MD Attending Provider Active Dr. Quinn Arnold MD Referring Provider Active Team Status: Active Member Role Status Dates Dr. Travon Branham MD Primary Care Provider Active Dr. Jacinto Diane MD Attending Provider, Referring Pro vider Active Team Status: Inactive Member Role Status Dates Dr. Travon Branham MD Primary Care Provider, Referring Provider Active Dr. Jacinto Diane MD Attending Provider Active Team Status: Inactive Member Role Status Dates Dr. Travon Branham MD Primary Care Provi isaiah, Attending Provider, Referring Provider Active Team Status: Active Member Role Status Dates Dr. Travon Branham MD Primary Care Provider Active Team Status: Inactive Member Role Status Dates Dr. Travon Branham MD Primary Care Provider Active Start: September 08, 2024 End: September 08, 2024 Dr. Travon Branham MD Attending Provider Active Start: September 08, 2024 End: September 08, 2024 Team Status: Inactive Member Role Status Dates Dr. Travon Branham MD Primary Care Provider Active Start: October 07, 2024 End: October 07, 2024 Dr. Travon Branham MD Attending Provider Active Start: October 07, 2024 End: October 07, 2024 Dr. Travon Branham MD Referring Provider Active Start: October 07, 2024 End: October 07, 2024 Team Status: Inactive Member Role Status Dates Dr. Travon Branham MD Primary Care Provider Active Start: October 29, 2024 End: October 29, 2024 Dr. Travon Branham MD Referring Provider Active Start: October 29, 2024 End: October 29, 2024 Jenae Ocasio PA, PA Attending Provider Active Start: October 29, 2024 End: October 29, 2024 Team Status: Inactive Member Role Status Dates Dr. Travon Branham MD Primary Care Provider Active Start: December 10, 2024 End: December 10, 2024 Dr. Travon Branham MD Attending Provider Active Start: December 10, 2024 End: December 10, 2024 Dr. Travon Branham MD Referring Provider Active Start: December 10, 2024 End: December 10, 2024 Team Status: Inactive Member Role Status Dates Dr. Travon Branham MD Primary Care Provider Active Start: December 19, 2024 End: December 19, 2024 Dr. Freddie Esquivel DO Emergency Provider Active Start: December 19, 2024 End: December 19, 2024 Team Status: Inactive Member Role Status Dates Dr. Travon Branham MD Primary Care Provider Active Start: December 19, 2024 End: December 19, 2024 Dr. Freddie Esquivel DO Attending Provider Active Start: December 19, 2024 End: December 19, 2024 Dr. Freddie Esquivel DO Emergency Provider Active Start: December 19, 2024 End: December 19, 2024 Team Status: Inactive Member Role Status Dates Dr. Travon Branham MD Primary Care Provider Active Start: December 22, 2024 End: December 22, 2024 Dr. Travon Branham MD Attending Provider Active Start: December 22, 2024 End: December 22, 2024 Dr. Travon Branham MD Referring Provider Active Start: December 22, 2024 End: December 22, 2024 FOR RECORDS PERTAINING TO PATIENTS WHO [...] BE BASED ON THE PRIMARY CLINICAL RECORDS. [employer] provides no warranty or guarantee of the accuracy or completeness of information in this document.
[2025-03-09 21:31] LABS: Xtra Tube Kwok EXTRA TUBE
== END | disposition home or self-care (01) ==
LOC: POLAB3 13:29
PROVIDERS: PCP Family Medicine Geriatric Medicine; Visit Provider Family Medicine Geriatric Medicine
DX: E03.9 Hypothyroidism, unspecified (principal); E55.9 Vitamin D deficiency, unspecified; R53.83 Other fatigue
CPT/HCPCS: 36415; 80053; 82306; 84443; 85025

== ENCOUNTER 2025-05-17 09:27 | Inpatient (IN) | payer BC, SELFPAY ==
[2025-05-17] VITALS (25 sets, daily range): BP systolic 78–106; BP diastolic 46–91; PULSE 82–161; RESP 15–30; TEMP 36.5–37.1; O2SAT 92–100; BMI 26.6; BMI 26.4
--- NOTE | 2025-05-17 09:35 | EKG12_ITS ---
Test Reason : PALPS
--- NOTE | 2025-05-17 10:16 | EX.ED.DYSGE1 ---
HPI History of Present Illness Chief Complaint: Palpitations Narrative Narrative: Patient is a 59-year-old female presenting to the emergency department for palpitations. Patient has a past medical history of A-fib and hyperlipidemia. States that she used to take amiodarone and Eliquis but has since been told to not take these per her disbursing officer, Dr. Diane. Patient states that this morning around 5 AM she thinks she went into A-fib. States that she is feeling her heart beating irregular that she describes as palpitations. She denies any chest pain, shortness of breath, fevers, chills. Denies any recent travel or hospitalizations or surgeries. Denies any lower extremity edema. Denies any lightheadedness or dizziness at time of evaluation. She states that sometimes when she stands up too quick she will get lightheaded. States that she did take an amiodarone prior to coming here today. [facility] Medical History Hyperlipidemia Atrial fibrillation Fatigue Familial hypercholesterolemia due to heterozygous low density lipoprotein (LDL) receptor mutation Osteoarthritis Tachycardia Vitamin D deficiency Atrophic vaginitis Morbid obesity Hypothyroid Syncope Home Medications ?Medication ?Instructions ?Recorded ?Last Taken ?Type thyroid (pork) 60 mg tablet 60 mg PO DAILY THYROID 07/24/23 05/17/25 History ([place] Thyroid) cholecalciferol (vitamin D3) 25 25 mcg PO DAILY supplement 08/14/23 05/17/25 History mcg (1,000 unit) capsule metoprolol tartrate 25 mg tablet 25 mg PO BID heart rate #60 tabs 05/09/24 05/17/25 Rx aspirin 81 mg tablet,delayed 81 mg PO DAILY #1 TAB 10/29/24 05/17/25 Rx release (Adult Aspirin Regimen) conj estrogen-medroxyprogesterone 1 tab PO DAILY hormone health 12/19/24 05/17/25 History 0.3 mg-1.5 mg tablet (Prempro) tirzepatide (weight loss) 10 10 mg subcut QWEEK weight 04/30/25 05/10/25 History mg/0.5 mL subcutaneous pen management injector (Zepbound) Allergy/AdvReac Type Severity Reaction Status Date / Time No Known Allergies Allergy Verified 05/17/25 09:27 Family History Brother Heart failure Mother Hepatitis a without hepatic coma Brother Afib Sister Afib Father Cancer Surgical History Hx of abdominoplasty Hx of thyroidectomy Social History Smoking Status: Never smoker alcohol intake: never substance use type: does not use caffeine: Yes Type: coffee Number of servings: 2 ROS ROS ED ROS Narrative See HPI EXAM Physical Exam Narrative Exam Narrative: Vital signs: Reviewed General: Alert and orientedx3. No acute distress HEENT: Head is normocephalic and atraumatic, sinuses nontender, pupils equal round and reactive. Nares are patent. Oropharynx and throat exams normal. Neck: Supple without lymphadenopathy nontender Cardiovascular: Irregularly irregular rate and rhythm, no murmurs. No rubs or gallops. Normal S1 and S2 Respiratory: Clear to auscultation bilaterally. No wheezes, rales, rhonchi Abdominal: Soft and nontender. Normal bowel sounds. No guarding or rebound. Nonsurgical abdomen Extremities: No lower extremity edema noted. No tenderness. No bruising. Normal range of motion. Normal sensation. Skin: No rash or redness. Neurological: Cranial nerves II through XII are grossly intact. Normal strength and sensation. Normal cerebellar function The rest of the physical exam is unremarkable Const Vital Signs: 05/17/25 09:27 05/17/25 10:27 05/17/25 10:28 Temperature 97.7 F L Temperature Source Oral Pulse Rate 82 155 H Respiratory Rate 16 19 H Respiratory Effort Normal Non-Labored Blood Pressure 105/79 89/63 L Blood Pressure Mean 87 71 Blood Pressure Source Pulse Ox 99 94 Oxygen Delivery Method Room Air Room Air 05/17/25 10:38 05/17/25 10:48 05/17/25 11:00 Temperature Temperature Source Pulse Rate 159 H 161 H 154 H Respiratory Rate 27 H 22 H 18 Respiratory Effort Blood Pressure 94/66 101/78 86/72 L Blood Pressure Mean 75 85 76 Blood Pressure Source Pulse Ox 99 92 95 Oxygen Delivery Method Room Air Room Air Room Air 05/17/25 11:24 05/17/25 11:44 05/17/25 12:00 Temperature Temperature Source Pulse Rate 152 H 115 H 112 H Respiratory Rate 23 H 30 H Respiratory Effort Blood Pressure 92/66 88/75 L 103/86 H Blood Pressure Mean 74 79 91 Blood Pressure Source Monitor Pulse Ox 98 98 Oxygen Delivery Method Room Air 05/17/25 12:45 05/17/25 13:00 05/17/25 14:00 Temperature Temperature Source Pulse Rate 135 H 148 H 135 H Respiratory Rate 21 H 17 17 Respiratory Effort Blood Pressure 106/91 H 105/59 L 104/79 Blood Pressure Mean 96 74 87 Blood Pressure Source Pulse Ox 100 100 92 Oxygen Delivery Method Room Air Room Air Room Air MDM MDM MDM Narrative Medical decision making narrative: Patient is a 59-year-old female presenting to the emergency department for potation's that started at 5 AM this morning. Patient was seen and examined. Vitals are stable. She is in what appears to be A-fib with RVR on initial EKG. No ischemic changes noted. BP is stable. Patient states that symptoms have been going on and off for the past few days and she is not on any oral anticoagulation at home therefore not a candidate for cardioversion. Will obtain basic blood work including chest x-ray as well as electrolytes. Does not having any chest pain and think it is necessary to obtain a troponin level. CBC with no leukocytosis and a normal hemoglobin. BMP with no significant abnormalities. Magnesium within normal limits. TSH is low at .117. Chest x-ray reviewed by myself, no opacities, pneumothorax or wide mediastinum noted. Radiology read in agreement. In prior cardiology notes it appears that the patient has received metoprolol and Cardizem in the past with no rate control or resolution. In addition she is mildly hypotensive in the 90s over 70s and I do not think her blood pressure would tolerate the metoprolol or Cardizem. For this reason I spoke to on-call disbursing officer, Dr. Duarte, who recommended a bolus of 150 mg of amiodarone. This was given. Heart rate still in the 130s to 140s. Dr. Duarte evaluated the patient in the emergency department and recommended p.o. amiodarone and then reevaluation in the next hour. Heart rate was still in the 130s to 160s and therefore patient was admitted to the hospitalist for a IV drip of amiodarone. Patient was updated on the findings and the plan and is agreeable. Patient admitted to the hospitalist, Dr. Quiñones for further management. Clinical impression: A-fib with RVR History & Record Review Discussion w/independent historian: Patient and Significant other Additional record(s) reviewed:: Prior inpatient record, Prior outpatient record, Prior ED visit and Prior labs Lab Data Attestation: I reviewed the patient's lab results. Labs: Laboratory Results - last 24 hr 05/17/25 10:35 WBC 6.8 RBC 4.44 Hgb 13.6 Hct 38.9 MCV 87.6 MCH 30.6 MCHC 35.0 RDW Std Deviation 39.1 RDW Coeff of Rich 12.2 Plt Count 204 MPV 10.3 Immature Gran % (Auto) 0.100 Neut % (Auto) 60.5 Lymph % (Auto) 31.6 [place] % (Auto) 6.8 Eos % (Auto) 0.6 Baso % (Auto) 0.4 Absolute Neuts (auto) 4.1 Absolute Lymphs (auto) 2.13 Nucleated RBC % 0 Sodium 140 Potassium 4.3 Chloride 108 Carbon Dioxide 22.9 Anion Gap 9 BUN 14 Creatinine 0.71 Estim Creat Clear Calc 85.16 Est GFR (MDRD) Non-Af 98 BUN/Creatinine Ratio 19.2 Glucose 100 H Calcium 9.6 Magnesium 2.1 TSH 0.117 L Free T4 1.20 Free T3 pg/dL 4.0 H Radiography Chest X-Ray - ED: 2 View, Read by ED Physician, Normal, No Acute Disease and No Infiltrates Diagnostic Testing: Clinical Impression(s) from Imaging Studies Chest X-Ray 05/17/25 10:45 IMPRESSION: No evidence of acute cardiopulmonary abnormality. Reading Location: [place] [id number] Discharge Plan Disposition Disposition: Acute Care Hospital [facility] Discharge Date/Time: 05/17/25 14:59
[2025-05-17 10:45] LABS: Hematocrit 38.9 % (37-47); Hemoglobin 13.6 g/dL (12.0-15.0); Immature Granulocytes Count 0.010 X10^3/uL (0.0-0.0); Mean Corp Hgb Conc 35.0 g/dL (32-36); Mean Corpuscular Volume 87.6 fL (81-99); Mean Platelet Vol. 10.3 fl (6.2-12.0); NRBC Flagged by Analyzer 0 % (0-5); Platelet Count 204 K/mm3 (150-450); RBC Distribution Width CV 12.2 % (11.6-14.6); RBC Distribution Width SD 39.1 fl (35.1-43.9); Red Blood Count 4.44 M/mm3 (4.2-5.4); White Blood Count 6.8 K/mm3 (4.4-11.0)
--- NOTE | 2025-05-17 10:45 | RAD_ITS ---
PROCEDURE: RAD/Chest PA and Lateral
[2025-05-17 11:20] LABS: Anion Gap 9 (5-15); BUN 14 mg/dL (4-19); BUN/Creat Ratio 19.2 RATIO (10-20); Calcium,Total 9.6 mg/dL (7.6-11.0); Carbon Dioxide 22.9 mmol/L (21.0-32.0); Chloride 108 mmol/L (98-108); Estimated Creatinine Clearance 85.16 ml/min (50-250); Glucose 100 mg/dL (70-99); Magnesium 2.1 mg/dL (1.5-2.2); Potassium 4.3 mmol/L (3.3-5.1)
[2025-05-17] MEDS: Amiodarone 150 MG in Dextrose 5%-Water (100mL Bag) 100 ML 600 MG IV BOLUS (11:24)
[2025-05-17] MEDS: 0.9% Normal Saline (1000mL) 1,000 ML 999 ML IV (11:29)
--- NOTE | 2025-05-17 12:32 | PCM.CONS.C ---
Assessment & Plan Assessment/Plan (1) Atrial fibrillation: QUALIFIERS: Atrial fibrillation type: paroxysmal Qualified Code(s): I48.0 - Paroxysmal atrial fibrillation PLAN: It appears from the patient's symptoms and her iWatch criteria that she has been in atrial fibrillation at least episodically for 24-48 hours. Her [id number] score equals 1 and she has been on aspirin. However in the past when she was cardioverted she is placed on Eliquis for 6 weeks. At this point in time I would recommend we try to rate control her by giving her oral amiodarone loading 400 mg twice daily we will give her the first dose now. If her heart rate is 120 or less and she is asymptomatic she should be able to be discharged to home. I did go over this in detail with the patient the loading would go as such: Amiodarone 400 mg twice daily x 5 days. Then amiodarone 200 mg twice daily x 2 weeks. Then amiodarone 200 mg daily. The patient will be reevaluated in 5 to 7 days in the [facility] office with an ECG and an YOLANDE visit. Her TSH and free T4 will need to be checked in 4 weeks. She should continue her current thyroid replacement dose for now. The patient will need an echocardiogram done at 3-4 weeks hopefully she will convert into sinus rhythm in the interim. Would recommend she be placed on Eliquis 5 mg twice daily for at least 6 weeks of sinus rhythm and then can drop back to the aspirin daily dose. Her aspirin should be stopped while she is on Eliquis. If you are unable to get her heart rate consistently under 120 in the emergency department she will require admission for IV amiodarone loading and rapid loading with oral dosing. PLAN: Plan 1. Will place the patient on amiodarone 400 mg twice daily x 5 days and then 200 mg twice daily x 2 weeks as noted above. 2. If the patient is discharged from the ED she needs to follow-up in 5 to 7 days in the [facility] office with YOLANDE and an ECG. 3. The patient was instructed to monitor her iWatch at home if her heart rate is less than 50 she should stop both the metoprolol and the amiodarone. Once her heart rates above 50 she should reinstitute the metoprolol twice daily dosing. 4. The patient's heart rate does not come under decent control or she remains symptomatic would have to reconsider admission today. HPI Consult Data Date of Consult: 05/17/25 HPI Narrative Reason for Consultation: Paroxysmal atrial fibs HPI Narrative: FIONA LEES, is a 59 F who presents with a 2-day history of feeling like she was back in atrial fibrillation. Yesterday she had episodes of lightheadedness that were off and on all day her iWatch said her heart rate was up in the 150?160 range. She woke up this morning feeling the same way with a heart rate up in the 160 range. She came to the emergency department where she is documented to be in atrial fibrillation at a heart rate of 150. Patient reports that when she has had atrial fibs in the past you had these lightheaded spells. Currently the patient denies any chest pain she denies any shortness of breath or significant dyspnea on exertion. She denies any lower extremity edema. Patient's last echocardiogram July 2023 which showed a normal ejection fraction of 55% normal atrial sizes and no significant valvular heart disease. In April 2024 the patient was admitted with atrial fibrillation and was cardioverted with IV loop amiodarone. She has a [id number]-EVYs score of 1 because she is female. The patient was transiently on Eliquis and then switched to aspirin. She has been taking her aspirin on a daily basis. But it is difficult to be certain how long she has been in atrial fibrillation at this time. The patient has been on metoprolol tartrate 25 mg twice daily she was trialed on combination of beta-erica and Cardizem when she was hospitalized in April without any success and rate control. Her rate was finally controlled and she spontaneously converted with amiodarone. The patient is now requesting to be placed back on amiodarone at least short-term. The patient received 250 mg IV bolus of amiodarone in the emergency department her heart rate has come down into the 125?130 range but she remains in atrial fibs. The patient denies any recent change in medications she has not been sick recently she and her both had a chronic cough for a 6-week timeframe but that was several weeks ago. She denies any recent overindulgence with alcohol or caffeine. The patient is on thyroid replacement. Her TSH is 0.117 which is slightly low today. [facility] Medical History Hyperlipidemia Atrial fibrillation Fatigue Familial hypercholesterolemia due to heterozygous low density lipoprotein (LDL) receptor mutation Osteoarthritis Tachycardia Vitamin D deficiency Atrophic vaginitis Morbid obesity Hypothyroid Syncope Home Medications ?Medication ?Instructions ?Recorded ?Last Taken ?Type thyroid (pork) 60 mg tablet 60 mg PO DAILY THYROID 07/24/23 Unknown History ([place] Thyroid) cholecalciferol (vitamin D3) 25 25 mcg PO DAILY supplement 08/14/23 Unknown History mcg (1,000 unit) capsule metoprolol tartrate 25 mg tablet 25 mg PO BID #60 tabs 05/09/24 Unknown Rx aspirin 81 mg tablet,delayed 81 mg PO DAILY #1 TAB 10/29/24 Unknown Rx release (Adult Aspirin Regimen) conj estrogen-medroxyprogesterone 1 tab PO DAILY 12/19/24 Unknown History 0.3 mg-1.5 mg tablet (Prempro) tirzepatide (weight loss) 10 10 mg subcut QWEEK 04/30/25 Unknown History mg/0.5 mL subcutaneous pen injector (Zepbound) Allergy/AdvReac Type Severity Reaction Status Date / Time No Known Allergies Allergy Verified 05/17/25 09:27 Family History Brother Heart failure Mother Hepatitis a without hepatic coma Brother Afib Sister Afib Father Cancer Surgical History Hx of abdominoplasty Hx of thyroidectomy Social History Smoking Status: Never smoker alcohol intake: never substance use type: does not use caffeine: Yes Type: coffee Number of servings: 2 ROS Constitutional Constitutional: Reports as per HPI Eyes Eyes: Reports systems reviewed and no addt'l complaints, except as documented ENT HEENT: Reports systems reviewed and no addt'l complaints, except as documented Cardiovascular Cardiovascular: Reports as per HPI Respiratory/Chest Respiratory/Chest: Reports as per HPI Gastrointestinal Gastrointestinal: Reports systems reviewed and no addt'l complaints, except as documented Genitourinary Genitourinary: Reports systems reviewed and no addt'l complaints, except as documented Musculoskeletal Musculoskeletal: Reports systems reviewed and no addt'l complaints, except as documented Integumentary Integumentary: Reports systems reviewed and no addt'l complaints, except as documented Neurologic Neurologic: Reports systems reviewed and no addt'l complaints, except as documented Psychiatric Psychiatric: Reports systems reviewed and no addt'l complaints, except as documented Endocrine Endocrinology: Reports as per HPI Hematologic/Lymphatic Hematologic/Lymphatic: Reports as per HPI Allergic/Immunologic Allergic/Immunologic: Reports systems reviewed and no addt'l complaints, except as documented Physical Exam Const alert and oriented x3 HEENT normocephalic Eyes EOMs intact bilaterally Neck no JVD and no carotid bruits Chest inspection of chest normal Resp normal respiratory effort and clear to auscultation bilaterally Cardio Rate: tachycardic Rhythm: abnormal rhythm irregularly irregular Heart Sounds: S1 normal and S2 normal; Negative for click, gallop or murmur Extremity no pedal edema Neuro Neuro Narrative: Alert and oriented x 3 Psych mental status grossly normal Charges/Coding Visit Charges Inpatient E&M: 65070 Init Hosp L2 Objective Data Vital Signs: Vital Signs Temp Pulse Resp BP Pulse Ox O2 Del Method 97.7 F L 112 H 30 H 103/86 H 98 Room Air 05/17/25 09:27 05/17/25 12:00 05/17/25 12:00 05/17/25 12:00 05/17/25 12:00 05/17/25 11:44 Oxygen Delivery Method Room Air Weight: 160 lb Body Mass Index (BMI) 26.6 Intake & Output: Intake and Output for Last 24 Hours 05/15/25 05/16/25 05/17/25 23:59 22:59 23:59 Intake Total 1103 / 1103 Balance 1103 / 1103 Lab / Micro Data Attestation: I reviewed the patient's lab results. 05/17/25 10:35 05/17/25 10:35 Labs: Laboratory Results - last 24 hr 05/17/25 10:35: WBC 6.8, RBC 4.44, Hgb 13.6, Hct 38.9, MCV 87.6, MCH 30.6, MCHC 35.0, RDW Std Deviation 39.1, RDW Coeff of Rich 12.2, Plt Count 204, MPV 10.3, Immature Gran % (Auto) 0.100, Neut % (Auto) 60.5, Lymph % (Auto) 31.6, Granite % (Auto) 6.8, Eos % (Auto) 0.6, Baso % (Auto) 0.4, Absolute Neuts (auto) 4.1, Absolute Lymphs (auto) 2.13, Nucleated RBC % 0, Sodium 140, Potassium 4.3, Chloride 108, Carbon Dioxide 22.9, Anion Gap 9, BUN 14, Creatinine 0.71, Estim Creat Clear Calc 85.16, Est GFR (MDRD) Non-Af 98, BUN/Creatinine Ratio 19.2, Glucose 100 H, Calcium 9.6, Magnesium 2.1, TSH 0.117 L Rhythm Strip Rhythm Strip: A-fib Rate: 130 Cardiology Labs/Tests 05/17/25 10:35: WBC 6.8, RBC 4.44, Hgb 13.6, Hct 38.9, MCV 87.6, MCH 30.6, MCHC 35.0, Plt Count 204, MPV 10.3, Immature Gran % (Auto) 0.100, Neut % (Auto) 60.5, Lymph % (Auto) 31.6, Granite % (Auto) 6.8, Eos % (Auto) 0.6, Baso % (Auto) 0.4, Absolute Neuts (auto) 4.1, Nucleated RBC % 0, Sodium 140, Potassium 4.3, Chloride 108, Carbon Dioxide 22.9, Anion Gap 9, BUN 14, Creatinine 0.71, Est GFR (MDRD) Non-Af 98, BUN/Creatinine Ratio 19.2, Glucose 100 H, Calcium 9.6, Magnesium 2.1 Rhythm: EKG: ECHO: Stress Test: Cardiac Cath: PCI: CT Surgery: Holter monitor: EPS: PPM: CXR: Chest CT Scan: Radiography Diagnostic Testing: Radiology Impression Chest X-Ray 05/17/25 10:45 IMPRESSION: No evidence of acute cardiopulmonary abnormality. Reading Location: [place] [address] [place] Risk Score for UA/STEMI Assesmment (YES = 1) Risk Stratification Applicable: No
[2025-05-17] MEDS: APIXABAN 5 MG TABLET PO ×2 (12:51→21:50)
--- NOTE | 2025-05-17 14:05 | PCM.HP.STD ---
HPI - General General Date of Admission: 06/16/25 Date of Service: 05/17/25 Chief Complaint: Heart palpitations HPI Narrative FIONA LEES, is a 59 F with a history of hypothyroidism, A-fib and hyperlipidemia who presented to [facility] ED 06/13/2024 with palpitations. Used to be on amiodarone and Eliquis for A-fib however due to [id number]-UFWi of 1 for being female she was taken off of anticoagulation and ultimately was transition from amiodarone to p.o. metoprolol. Around 5 AM she notes she began to have palpitations and some lightheadedness when standing up. In the ED patient noted to be in A-fib with RVR with a heart rate of 155 and blood pressure 89/63. CBC within normal limits, BMP with a glucose 100 but otherwise within normal limits, mag 2.1, TSH 0.117. Cardiology contacted and recommended Amio bolus and p.o. Amio and if heart rate less than 120 she be discharged home however despite these interventions heart rate went back to 140s to 150s so hospitalist contacted for admission. Patient evaluated at bedside, reports still feeling palpitations but feeling better than she was, no longer feeling lightheaded. Denies any chest pain or shortness of breath, no other new or acute complaints. [facility] Medical History Hyperlipidemia Atrial fibrillation Fatigue Familial hypercholesterolemia due to heterozygous low density lipoprotein (LDL) receptor mutation Osteoarthritis Tachycardia Vitamin D deficiency Atrophic vaginitis Morbid obesity Hypothyroid Syncope Home Medications ?Medication ?Instructions ?Recorded ?Last Taken ?Type thyroid (pork) 60 mg tablet 60 mg PO DAILY THYROID 07/24/23 Unknown History ([place] Thyroid) cholecalciferol (vitamin D3) 25 25 mcg PO DAILY supplement 08/14/23 Unknown History mcg (1,000 unit) capsule metoprolol tartrate 25 mg tablet 25 mg PO BID #60 tabs 05/09/24 Unknown Rx aspirin 81 mg tablet,delayed 81 mg PO DAILY #1 TAB 10/29/24 Unknown Rx release (Adult Aspirin Regimen) conj estrogen-medroxyprogesterone 1 tab PO DAILY 12/19/24 Unknown History 0.3 mg-1.5 mg tablet (Prempro) tirzepatide (weight loss) 10 10 mg subcut QWEEK 04/30/25 Unknown History mg/0.5 mL subcutaneous pen injector (Zepbound) Allergy/AdvReac Type Severity Reaction Status Date / Time No Known Allergies Allergy Verified 05/17/25 09:27 Family History Brother Heart failure Mother Hepatitis a without hepatic coma Brother Afib Sister Afib Father Cancer Surgical History Hx of abdominoplasty Hx of thyroidectomy Social History Smoking Status: Never smoker alcohol intake: never substance use type: does not use caffeine: Yes Type: coffee Number of servings: 2 ROS ROS Narrative General: Denies fever/chills HENT: Denies headache, denies stuffy nose, denies sore throat EYES: Denies changes in vision Resp: Denies cough, denies shortness of breath Cardiac: Denies chest pain, some palpitations noted GI: Denies abdominal pain, denies changes in bowel, denies nausea/vomiting : Denies changes in urination Extremity: Denies swelling MSK: Denies weakness Neuro: Denies any numbness/tingling Heme: Denies any bleeding or bruising Skin: Denies rashes Psychiatric: No complaints voiced Vital Signs Vital Signs Vital Signs: 05/17/25 09:27 05/17/25 10:27 05/17/25 10:28 Temperature 97.7 F L Temperature Source Oral Pulse Rate 82 155 H Respiratory Rate 16 19 H Respiratory Effort Normal Non-Labored Blood Pressure 105/79 89/63 L Blood Pressure Mean 87 71 Blood Pressure Source Pulse Ox 99 94 Oxygen Delivery Method Room Air Room Air 05/17/25 10:38 05/17/25 10:48 05/17/25 11:00 Temperature Temperature Source Pulse Rate 159 H 161 H 154 H Respiratory Rate 27 H 22 H 18 Respiratory Effort Blood Pressure 94/66 101/78 86/72 L Blood Pressure Mean 75 85 76 Blood Pressure Source Pulse Ox 99 92 95 Oxygen Delivery Method Room Air Room Air Room Air 05/17/25 11:24 05/17/25 11:44 05/17/25 12:00 Temperature Temperature Source Pulse Rate 152 H 115 H 112 H Respiratory Rate 23 H 30 H Respiratory Effort Blood Pressure 92/66 88/75 L 103/86 H Blood Pressure Mean 74 79 91 Blood Pressure Source Monitor Pulse Ox 98 98 Oxygen Delivery Method Room Air 05/17/25 12:45 05/17/25 13:00 Temperature Temperature Source Pulse Rate 135 H 148 H Respiratory Rate 21 H 17 Respiratory Effort Blood Pressure 106/91 H 105/59 L Blood Pressure Mean 96 74 Blood Pressure Source Pulse Ox 100 100 Oxygen Delivery Method Room Air Room Air Weight Weight: 72.575 kg Body Mass Index (BMI) 26.6 Physical Exam Narrative General: Alert, oriented, no apparent distress HEENT: Atraumatic, normocephalic Eyes: Anicteric, normal conjunctiva, extraocular movements grossly intact Neck: Supple Respiratory: Clear to auscultation bilaterally, normal respiratory effort Cardiovascular: Tachycardic, irregularly irregular GI: Soft, nontender, nondistended Extremities: No edema Musculoskeletal: Moving all extremities Neuro: No overt focal neurological deficits Skin: No rashes appreciated Psych: Cooperative Results Lab / Micro Data 05/17/25 10:35 05/17/25 10:35 Labs: Laboratory Results - last 24 hr 05/17/25 10:35: WBC 6.8, RBC 4.44, Hgb 13.6, Hct 38.9, MCV 87.6, MCH 30.6, MCHC 35.0, RDW Std Deviation 39.1, RDW Coeff of Rich 12.2, Plt Count 204, MPV 10.3, Immature Gran % (Auto) 0.100, Neut % (Auto) 60.5, Lymph % (Auto) 31.6, [place] % (Auto) 6.8, Eos % (Auto) 0.6, Baso % (Auto) 0.4, Absolute Neuts (auto) 4.1, Absolute Lymphs (auto) 2.13, Nucleated RBC % 0, Sodium 140, Potassium 4.3, Chloride 108, Carbon Dioxide 22.9, Anion Gap 9, BUN 14, Creatinine 0.71, Estim Creat Clear Calc 85.16, Est GFR (MDRD) Non-Af 98, BUN/Creatinine Ratio 19.2, Glucose 100 H, Calcium 9.6, Magnesium 2.1, TSH 0.117 L Rhythm Strip Rhythm Strip: A-fib Rate: 130 Imaging Radiology Impression Chest X-Ray 05/17/25 10:45 IMPRESSION: No evidence of acute cardiopulmonary abnormality. Reading Location: [place] [address] Assessment & Plan Assessment/Plan (1) Atrial fibrillation with rapid ventricular response: PLAN: Plan #Afib w/ RVR -Admit to telemetry -Initial rate in ED: 155 with soft blood pressure however BP improved after amiodarone but heart rate went back to 140s 150s -Rate control: Given amnio bolus, will start Amio drip -AC: Eliquis -Echocardiogram: Ordered -TSH: 0.117, will check free T3 and T4 - Will consult cardiology #Hypothyroidism -Continue home [place] Thyroid but will check free T3 and T4 #DVT ppx: Tamie Quiñones MD Time spent in the patient's overall evaluation, decision-making process, review of diagnostic data, adjustment of management, discussion with other providers, nursing and ancillary staff involved in patient's care documentation, 56 minutes Charges/Coding Visit Charges Inpatient E&M: 92822 Init Hosp L2
--- NOTE | 2025-05-17 15:06 | ECHOD_ITS ---
Reason For Study ECHO/Echo Complete
[2025-05-17 15:12] LABS: Free T3 4.0 pg/mL (2.18-3.98)
[2025-05-17] MEDS: Amiodarone 360 MG in Dextrose 5% Viaflo Bag 192.8 ML 33.3 MG CONT INF (15:23)
[2025-05-17] MEDS: Amiodarone 360 MG in Dextrose 5% Viaflo Bag 192.8 ML 16.7 MG CONT INF (21:50)
[2025-05-18] VITALS (12 sets, daily range): BP systolic 89–110; BP diastolic 57–88; PULSE 101–124; RESP 10–23; TEMP 36.2; O2SAT 95–100
[2025-05-18 06:03] LABS: Hematocrit 36.7 % (37-47); Hemoglobin 12.5 g/dL (12.0-15.0); Mean Corp Hgb Conc 34.1 g/dL (32-36); Mean Corpuscular Volume 88.2 fL (81-99); Mean Platelet Vol. 10.6 fl (6.2-12.0); Platelet Count 146 K/mm3 (150-450); RBC Distribution Width CV 12.4 % (11.6-14.6); RBC Distribution Width SD 39.7 fl (35.1-43.9); Red Blood Count 4.16 M/mm3 (4.2-5.4); White Blood Count 4.7 K/mm3 (4.4-11.0)
[2025-05-18 06:30] LABS: Anion Gap 11 (5-15); BUN 9 mg/dL (4-19); BUN/Creat Ratio 15.1 RATIO (10-20); Calcium,Total 8.9 mg/dL (7.6-11.0); Carbon Dioxide 19.1 mmol/L (21.0-32.0); Chloride 112 mmol/L (98-108); Estimated Creatinine Clearance 98.76 ml/min (50-250); Glucose 90 mg/dL (70-99); Potassium 3.6 mmol/L (3.3-5.1)
--- NOTE | 2025-05-18 08:14 | PCM.PN.CARD ---
Subjective Subjective Patient is resting comfortably in bed in recumbent position. She denies any shortness of breath PND orthopnea denies any palpitations or near syncope. She has been back and forth to the restroom several times without dizziness or any symptoms. Patient's echocardiogram showed an EF of 40% with mild global hypokinesis this is different than the one July 2023 which showed normal LV function EF of 55%. There is no significant valvular heart disease on either one of the echoes and her atria are both of normal size on both echoes. Patient's heart rate continues to be 108?135 on telemetry she remains in atrial fibrillation. Objective Data Vital Signs: Vital Signs Temp Pulse Resp BP Pulse Ox O2 Del Method 98.3 F 114 H 17 102/87 H 95 Room Air 05/17/25 15:30 05/18/25 07:00 05/18/25 07:00 05/18/25 07:00 05/18/25 07:00 05/18/25 07:00 Oxygen Delivery Method Room Air Weight: 158 lb 11.725 oz Body Mass Index (BMI) 26.4 Intake & Output: Intake and Output for Last 24 Hours 05/16/25 05/17/25 05/18/25 22:59 23:59 23:59 Intake Total 1722.48 / 1722.48 133.60 / 133.60 Balance 1722.48 / 1722.48 133.60 / 133.60 Lab / Micro Data Attestation: I reviewed the patient's lab results. 05/18/25 05:15 05/18/25 05:15 Labs: Laboratory Results - last 24 hr 05/17/25 10:35: WBC 6.8, RBC 4.44, Hgb 13.6, Hct 38.9, MCV 87.6, MCH 30.6, MCHC 35.0, RDW Std Deviation 39.1, RDW Coeff of Rich 12.2, Plt Count 204, MPV 10.3, Immature Gran % (Auto) 0.100, Neut % (Auto) 60.5, Lymph % (Auto) 31.6, [place] % (Auto) 6.8, Eos % (Auto) 0.6, Baso % (Auto) 0.4, Absolute Neuts (auto) 4.1, Absolute Lymphs (auto) 2.13, Nucleated RBC % 0, Sodium 140, Potassium 4.3, Chloride 108, Carbon Dioxide 22.9, Anion Gap 9, BUN 14, Creatinine 0.71, Estim Creat Clear Calc 85.16, Est GFR (MDRD) Non-Af 98, BUN/Creatinine Ratio 19.2, Glucose 100 H, Calcium 9.6, Magnesium 2.1, TSH 0.117 L, Free T4 1.20, Free T3 pg/dL 4.0 H 05/18/25 05:15: WBC 4.7, RBC 4.16 L, Hgb 12.5, Hct 36.7 L, MCV 88.2, MCH 30.0, MCHC 34.1, RDW Std Deviation 39.7, RDW Coeff of Rich 12.4, Plt Count 146 L, MPV 10.6, Sodium 142, Potassium 3.6, Chloride 112 H, Carbon Dioxide 19.1 L, Anion Gap 11, BUN 9, Creatinine 0.61 L, Estim Creat Clear Calc 98.76, Est GFR (MDRD) Non-Af 103, BUN/Creatinine Ratio 15.1, Glucose 90, Calcium 8.9 Rhythm Strip Rhythm Strip: A-fib Rate: 115 Cardiology Labs/Tests 05/17/25 10:35: WBC 6.8, RBC 4.44, Hgb 13.6, Hct 38.9, MCV 87.6, MCH 30.6, MCHC 35.0, Plt Count 204, MPV 10.3, Immature Gran % (Auto) 0.100, Neut % (Auto) 60.5, Lymph % (Auto) 31.6, [place] % (Auto) 6.8, Eos % (Auto) 0.6, Baso % (Auto) 0.4, Absolute Neuts (auto) 4.1, Nucleated RBC % 0, Sodium 140, Potassium 4.3, Chloride 108, Carbon Dioxide 22.9, Anion Gap 9, BUN 14, Creatinine 0.71, Est GFR (MDRD) Non-Af 98, BUN/Creatinine Ratio 19.2, Glucose 100 H, Calcium 9.6, Magnesium 2.1 05/18/25 05:15: WBC 4.7, RBC 4.16 L, Hgb 12.5, Hct 36.7 L, MCV 88.2, MCH 30.0, MCHC 34.1, Plt Count 146 L, MPV 10.6, Sodium 142, Potassium 3.6, Chloride 112 H, Carbon Dioxide 19.1 L, Anion Gap 11, BUN 9, Creatinine 0.61 L, Est GFR (MDRD) Non-Af 103, BUN/Creatinine Ratio 15.1, Glucose 90, Calcium 8.9 Rhythm: EKG: ECHO: Stress Test: Cardiac Cath: PCI: CT Surgery: Holter monitor: EPS: PPM: CXR: Chest CT Scan: Radiography Diagnostic Testing: Radiology Impression Chest X-Ray 05/17/25 10:45 IMPRESSION: No evidence of acute cardiopulmonary abnormality. Reading Location: [place] [id number] Echocardiogram 05/17/25 15:06 Interpretation Summary Mild generalized LV hypokinesis. Estimated LVEF 40%. Mild (1+) mitral valve insufficiency. Mild (1+) tricuspid valve insufficiency. Ordering Physician: Fannie Quiñones Referring Physician: Travon Mata Chi Performed By: Mandy Crystal RDCS Physical Exam Const alert and oriented x3 HEENT normocephalic Eyes EOMs intact bilaterally Neck no JVD Chest inspection of chest normal Resp normal respiratory effort and clear to auscultation bilaterally Cardio Rate: tachycardic Rhythm: abnormal rhythm irregularly irregular Heart Sounds: S1 normal and S2 normal; Negative for click, gallop or murmur Extremity no pedal edema Neuro Neuro Narrative: Alert and oriented x 3 Psych mental status grossly normal Assessment & Plan Assessment/Plan (1) Atrial fibrillation with rapid ventricular response: PLAN: Patient's heart rate remains elevated in the 115 bpm range. She is lying at rest in the bed. Her blood pressure is 95?100 systolic. I do not feel that we can add metoprolol or Cardizem given her soft blood pressure. Her echocardiogram does show that her LV function is mildly depressed with an EF of 40% it was 55% in July 2023. The patient is totally asymptomatic in atrial fibrillation at over 100 bpm. It brings into question the duration that she has been in atrial fibrillation at this time. It appeared by symptoms that this had been 48 hours but now given her LV function I am not certain. Ideally would like to add a beta-erica given her LV dysfunction but at this point in time rate control is the most important thing and maintaining her blood pressure. We will change her amiodarone to 400 mg twice daily p.o. and get the patient up and ambulate her. If she is able to tolerate this without any symptoms and an acceptable heart rate less than 120 I feel she could be discharged home continue with p.o. amiodarone loading. The amiodarone should be 400 mg twice daily for 4 more days, then 200 mg twice daily for 2 weeks. The patient needs to be reevaluated in the [facility] office in 7 to 10 days with an ECG. The patient is to be maintained on Eliquis 5 mg twice daily. If she remains in atrial fibrillation for more than 3-4 weeks would recommend elective direct-current cardioversion. Both of her atria are of normal size the LV function is likely related to the rapid ventricular response of her atrial fibrillation. I discussed this in detail with the patient and nursing staff. PLAN: Plan 1. Will switch to p.o. loading amiodarone 400 mg twice daily for 4 more days. 2. After 4 days would switch to 200 mg twice daily for 2 weeks. 3. Patient should be follow-up in the [facility] office in 7-10 days with YOLANDE for an ECG. 4. Patient should be continued on Eliquis 5 mg twice daily uninterrupted. She was provided with a co-pay card yesterday. 5. Recommend ambulating the patient this morning and reassess her for possible discharge later today. Charges/Coding Visit Charges Inpatient E&M: 78594 Subs Hosp L2
[2025-05-18] MEDS: Amiodarone 360 MG in Dextrose 5% Viaflo Bag 192.8 ML 16.7 MG CONT INF (09:50)
[2025-05-18] MEDS: APIXABAN 5 MG TABLET PO (09:51)
--- NOTE | 2025-05-18 10:30 | CASEMGMT ---
Dx: A fib with RVR LACE: 1 6-Clicks: 24 Medical record reviewed and patient evaluated for identification of discharge planning needs. Based on this review, at this time criteria are not present to indicate a need for discharge planning. Will remain available to assist with discharge planning needs as identified or requested.
--- NOTE | 2025-05-18 12:36 | EKG12_ITS ---
Test Reason : CHANGE
--- NOTE | 2025-05-18 12:50 | DCINST_ITS ---
Discharge Instructions
--- NOTE | 2025-05-18 12:50 | PCM.DC ---
Discharge Instructions DC O2, CPAP, BIPAP needs Home O2 Discharge instructions: No Dressing / Incision Discharge Activity: - (Increase activity as tolerated) Follow Up Care Test Results: Test results from this visit will be discussed in further detail at your follow-up appointment, if applicable. Discharge Plan Admission Admit Date/Time: 05/17/25 14:05 Primary Reason for Your Visit: Afib with RVR Attending Provider: Fannie Quiñones Primary Care Provider: Travon Mata Chi Consulting Providers: Johnny Duarte Instructions Patient Instructions: AFib Dc Additional Instructions / Restrictions: DISCHARGE INSTRUCTIONS PLEASE READ *Please take this with you to your next doctors appointment* - You will need to follow-up in the cardiology office in 7 to 10 days, please call in discharge to schedule this appointment -You will be discharged on Eliquis 5 mg twice daily, you will need to take this uninterrupted -You will be discharged on amiodarone 400 mg twice daily for 4 more days after which she will switch to 200 mg twice daily for 2 weeks, further instructions can be provided at your cardiology follow-up appointment. This medicine has been sent to your preferred pharmacy on file -Please follow-up with your primary care physician to discuss your thyroid medication as you may need your labs repeated to see if further adjustments need to be made -You will stop taking your metoprolol on discharge and you will no longer take your aspirin -Please call your primary care provider's office upon discharge to schedule a hospital follow up within 1 week. -For any concerning signs or symptoms please call 911 or proceed to the nearest emergency department Discharge Orders/Prescriptions Prescriptions: New Eliquis 5 mg Tablet 5 mg PO BID 30 Days Qty: 60 0RF amiodarone 200 mg tablet See Rx Instructions .ROUTE .COMPLEX Qty: 30 0RF Rx Instructions: Please take 400 mg (2 tabs) twice daily for 4 days and then switch to 200 mg twice daily for 2 weeks Continued cholecalciferol (vitamin D3) 25 mcg (1,000 unit) capsule 25 mcg PO DAILY Zepbound 10 mg/0.5 mL pen injector 10 mg subcut QWEEK thyroid (pork) [[place] Thyroid] 60 mg tablet 60 mg PO DAILY Prempro 0.3-1.5 mg tablet 1 tab PO DAILY Discontinued aspirin [Adult Aspirin Regimen] 81 mg tablet,delayed release (DR/EC) 81 mg PO DAILY Qty: 1 0RF metoprolol tartrate 25 mg Tablet 25 mg PO BID Qty: 60 0RF Referrals / Follow Up: Travon Mata Chi, MD [Primary Care Provider, Geriatrics] - Within 1 Week Jenae Ocasio PA [Med Staff - [facility] Practice Prof, Cardiology] - Within 1 Week Disposition Disposition (needs filled in before D/C Order can be placed): Home, Self Care
--- NOTE | 2025-05-18 14:17 | PCM.DC.SUM ---
Providers Date of Admission: 05/17/25 Date of Discharge: 05/18/25 Primary Care Physician: Dr. Travon Mata MD Consultations 05/17/25 15:06 Consult: Cardiology Routine Consulting Provider: Johnny Duarte Reason for Consult: afib rvr EMERGENT Consult: No MD Notified: Yes Date Notified: 05/17/25 Time Notified: 14:12 Method of Notification: ED Physician Initiated Reason For Visit: AFIB WITH RVR Diagnosis Discharge Diagnosis (1) Atrial fibrillation with rapid ventricular response: Status: Acute Code(s): I48.91 - Unspecified atrial fibrillation Plan #Afib w/ RVR-converted to sinus #Hypothyroidism Medications at Discharge Home Medications thyroid (pork) 60 mg tablet ([place] Thyroid) 60 mg PO DAILY THYROID 07/24/23 cholecalciferol (vitamin D3) 25 mcg (1,000 unit) capsule 25 mcg PO DAILY supplement 08/14/23 conj estrogen-medroxyprogesterone 0.3 mg-1.5 mg tablet (Prempro) 1 tab PO DAILY hormone health 12/19/24 tirzepatide (weight loss) 10 mg/0.5 mL subcutaneous pen injector (Zepbound) 10 mg subcut QWEEK weight management 04/30/25 amiodarone 200 mg tablet See Rx Instructions .Route .COMPLEX #30 tabs 05/18/25 apixaban 5 mg tablet (Eliquis) 5 mg PO BID 30 days #60 tabs 05/18/25 Hospital Course Summary of Care Provided Minutes Spent on Discharge: 25 Hospital Course: Per HPI: FIONA LEES, is a 59 F with a history of hypothyroidism, A-fib and hyperlipidemia who presented to [facility] ED 06/13/2024 with palpitations. Used to be on amiodarone and Eliquis for A-fib however due to [id number] of 1 for being female she was taken off of anticoagulation and ultimately was transition from amiodarone to p.o. metoprolol. Around 5 AM she notes she began to have palpitations and some lightheadedness when standing up. In the ED patient noted to be in A-fib with RVR with a heart rate of 155 and blood pressure 89/63. CBC within normal limits, BMP with a glucose 100 but otherwise within normal limits, mag 2.1, TSH 0.117. Cardiology contacted and recommended Amio bolus and p.o. Amio and if heart rate less than 120 she be discharged home however despite these interventions heart rate went back to 140s to 150s so hospitalist contacted for admission. Patient evaluated at bedside, reports still feeling palpitations but feeling better than she was, no longer feeling lightheaded. Denies any chest pain or shortness of breath, no other new or acute complaints. INTERVAL HISTORY: Patient feeling well overall with no new or acute complaints on day of discharge. Patient changed to p.o. Amio loading dose and converted to sinus rhythm in the morning 05/18/25, Amio drip stopped, patient was up and ambulating and remained in sinus rhythm, discussed with cardiology and patient cleared for discharge with the following discharge instructions: - You will need to follow-up in the cardiology office in 7 to 10 days, please call in discharge to schedule this appointment -You will be discharged on Eliquis 5 mg twice daily, you will need to take this uninterrupted -You will be discharged on amiodarone 400 mg twice daily for 4 more days after which she will switch to 200 mg twice daily for 2 weeks, further instructions can be provided at your cardiology follow-up appointment. This medicine has been sent to your preferred pharmacy on file -Please follow-up with your primary care physician to discuss your thyroid medication as you may need your labs repeated to see if further adjustments need to be made -You will stop taking your metoprolol on discharge and you will no longer take your aspirin -Please call your primary care provider's office upon discharge to schedule a hospital follow up within 1 week. -For any concerning signs or symptoms please call 911 or proceed to the nearest emergency department Physical Exam Narrative General: Alert, oriented, no apparent distress HEENT: Atraumatic, normocephalic Eyes: Anicteric, normal conjunctiva, extraocular movements grossly intact Neck: Supple Respiratory: Clear to auscultation bilaterally, normal respiratory effort Cardiovascular: Regular rate and rhythm GI: Soft, nontender, nondistended Extremities: No edema Musculoskeletal: Moving all extremities Neuro: No overt focal neurological deficits Skin: No rashes appreciated Psych: Cooperative Weight / BMI Weight Weight: 72 kg Body Mass Index (BMI) 26.4 ABG / Lab / Microbiology Data 05/18/25 05:15 05/18/25 05:15 Laboratory: Laboratory Results - last 24 hr 05/18/25 05:15: WBC 4.7, RBC 4.16 L, Hgb 12.5, Hct 36.7 L, MCV 88.2, MCH 30.0, MCHC 34.1, RDW Std Deviation 39.7, RDW Coeff of Rich 12.4, Plt Count 146 L, MPV 10.6, Sodium 142, Potassium 3.6, Chloride 112 H, Carbon Dioxide 19.1 L, Anion Gap 11, BUN 9, Creatinine 0.61 L, Estim Creat Clear Calc 98.76, Est GFR (MDRD) Non-Af 103, BUN/Creatinine Ratio 15.1, Glucose 90, Calcium 8.9 Radiography Diagnostic Testing: Radiology Impression Echocardiogram 05/17/25 15:06 Interpretation Summary Mild generalized LV hypokinesis. Estimated LVEF 40%. Mild (1+) mitral valve insufficiency. Mild (1+) tricuspid valve insufficiency. Ordering Physician: Fannie Quiñones Referring Physician: Travon Mata Chi Performed By: Mandy Crystal RDCS D/C Instructions DC O2, CPAP, BIPAP Needs Home O2 Discharge instructions: No Meaningful Use Info Meaningful Use Meaningful Use Diagnoses (Choose all that apply): None applicable Discharge Plan Admission Admit Date/Time: 05/17/25 14:05 Primary Reason for Your Visit: Afib with RVR Attending Provider: Fannie Quiñones Primary Care Provider: Travon Mata Chi Consulting Providers: Johnny Duarte Instructions Patient Instructions: AFib Dc Additional Instructions / Restrictions: DISCHARGE INSTRUCTIONS PLEASE READ *Please take this with you to your next doctors appointment* - You will need to follow-up in the cardiology office in 7 to 10 days, please call in discharge to schedule this appointment -You will be discharged on Eliquis 5 mg twice daily, you will need to take this uninterrupted -You will be discharged on amiodarone 400 mg twice daily for 4 more days after which she will switch to 200 mg twice daily for 2 weeks, further instructions can be provided at your cardiology follow-up appointment. This medicine has been sent to your preferred pharmacy on file -Please follow-up with your primary care physician to discuss your thyroid medication as you may need your labs repeated to see if further adjustments need to be made -You will stop taking your metoprolol on discharge and you will no longer take your aspirin -Please call your primary care provider's office upon discharge to schedule a hospital follow up within 1 week. -For any concerning signs or symptoms please call 911 or proceed to the nearest emergency department Discharge Orders/Prescriptions Prescriptions: New Eliquis 5 mg Tablet 5 mg PO BID 30 Days Qty: 60 0RF amiodarone 200 mg tablet See Rx Instructions .ROUTE .COMPLEX Qty: 30 0RF Rx Instructions: Please take 400 mg (2 tabs) twice daily for 4 days and then switch to 200 mg twice daily for 2 weeks Continued cholecalciferol (vitamin D3) 25 mcg (1,000 unit) capsule 25 mcg PO DAILY Zepbound 10 mg/0.5 mL pen injector 10 mg subcut QWEEK thyroid (pork) [[place] Thyroid] 60 mg tablet 60 mg PO DAILY Prempro 0.3-1.5 mg tablet 1 tab PO DAILY Discontinued aspirin [Adult Aspirin Regimen] 81 mg tablet,delayed release (DR/EC) 81 mg PO DAILY Qty: 1 0RF metoprolol tartrate 25 mg Tablet 25 mg PO BID Qty: 60 0RF Referrals / Follow Up: Travon Mata Chi, MD [Primary Care Provider, Geriatrics] - Within 1 Week Jenae Ocasio PA [Med Staff - [facility] Practice Prof, Cardiology] - Within 1 Week Disposition Disposition (needs filled in before D/C Order can be placed): Home, Self Care Charges/Coding Visit Charges Inpatient E&M: 78904 Disch Hosp
--- NOTE | 2025-05-18 14:47 | PHA.DC_ITS ---
Pharmacy DC Med Rec Counseling
--- NOTE | 2025-05-18 14:47 | PHA.DC.MC.R ---
Pharmacy [facility] Counseling Pharmacy Service has performed discharge medication reconciliation and counseling for this patient. The patient's discharge medication list was reviewed for discrepancies and discrepancies were resolved. The patient was counseled on the following discharge medications and changes in medications for homegoing were reviewed. The Reason for Use, instructions for use, and potential side effects were reviewed for all new medications. The patient's questions regarding all of their medications were answered. 1. Amiodarone 400 mg PO BID x 4 days, then 200 mg PO BID thereafter 2. Apixaban 5 mg PO BID The patient was able to verbally demonstrate an understanding of their discharge medications. The patient was counselled on new medications by corporate director of pharmacy Yahir. Medications at Discharge Home Medications thyroid (pork) 60 mg tablet ([place] Thyroid) 60 mg PO DAILY THYROID 07/24/23 cholecalciferol (vitamin D3) 25 mcg (1,000 unit) capsule 25 mcg PO DAILY supplement 08/14/23 conj estrogen-medroxyprogesterone 0.3 mg-1.5 mg tablet (Prempro) 1 tab PO DAILY hormone health 12/19/24 tirzepatide (weight loss) 10 mg/0.5 mL subcutaneous pen injector (Zepbound) 10 mg subcut QWEEK weight management 04/30/25 amiodarone 200 mg tablet See Rx Instructions .Route .COMPLEX #30 tabs 05/18/25 apixaban 5 mg tablet (Eliquis) 5 mg PO BID 30 days #60 tabs 05/18/25
--- NOTE | 2025-05-18 15:19 | CASEMGMT ---
Patient has order for discharge. Patient is discharging on Eliquis. SHILPA GARCIA called Richard, copay is $128.36. SHILPA CM in to discuss discharge needs with patient. SHILPA GARCIA updated patient regarding copay and to provide patient with savings card. Patient states she already received savings card from still operator [employer] to use. Patient denied further needs or concerns. Patient had no further questions.
== END 2025-05-18 15:26 | disposition home or self-care (01) | DRG 310 ==
LOC: ED 10:26 → PCU 14:38
PROVIDERS: Admitting Provider Internal Medicine; Emergency Provider Student in an Organized Health Care Education/Training Program; PCP Family Medicine Geriatric Medicine; Visit Provider Internal Medicine
DX: I48.0 Paroxysmal atrial fibrillation (principal); E03.9 Hypothyroidism, unspecified; Z79.85 Long-term (current) use of injectable non-insulin antidiabetic drugs
CPT/HCPCS: 36415; 71046; 80048; 83735; 84439; 84443; 84481; 85025; 85027; 93005; 93306; 99285; A4216

== ENCOUNTER → 2025-05-27 | Outpatient (CLI) | payer BC, SELFPAY ==
--- OUTSIDE RECORDS SUMMARY | 2025-05-27 18:22 | XMS RPT_ITS | CCD ---
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 Jacinto Diane Attending Provider [phone] Quinn Arnold Referring Provider Unavailable Benedicto, Dr. Casey Referring Provider [phone] Travon Branham Chi Primary Care Provider Dr. Jose Maria Smith Emergency Provider Dr. Quinn Arnold Admit Provider Unavailable Dr. Quinn Arnold Attending Provider Unavailable Dr. Quinn Arnold Other Provider Unavailable Dr. Alex Patel Attending Provider [phone] Dr. Quinn Arnold Referring Provider Unavailable Dr. Jacinto Diane Attending Provider [phone] Dr. Jacinto Diane Referring Provider [phone] Travon Branham Chi Referring Provider Adolfo PEÑALOZA, Dr. Travon Damon Primary Care Provider Adolfo PEÑALOZA, Dr. Travon Damon Attending Provider Adolfo PEÑALOZA, Dr. Travon Damon Referring Provider Jenae Johnson Attending Provider Dr. Freddie Esquivel DO Emergency Provider Sierra ROSAS, Dr. Frazier Attending Provider Adolfo PEÑALOZA, Dr. Travon Damon Primary Care Provider Adolfo PEÑALOZA, Dr. Travon Damon Attending Provider Adolfo PEÑALOZA, Dr. Travon Damon Referring Provider Adolfo PEÑALOZA, Dr. Travon Damon Primary Care Physician [phone] Adolfo PEÑALOZA, Dr. Travon Damon Attending Physician Adolfo PEÑALOZA, Dr. Travon Damon Referring Provider Candelaria Leon Attending Physician Adolfo, Travon Chi Primary Care Unavailable Adolfo, Travon Chi Referring Unavailable Adolfo, Travon Chi Attending Unavailable Adolfo, Travon Chi Attending Unavailable Adolfo, Travon Chi Primary Care Unavailable Adolfo, Travon Chi Referring Unavailable Adolfo, Travon Chi Primary Care Unavailable Johnny Duarte Consulting Unavailable Fannie Quiñones Admitting Unavailable Fannie Quiñones Attending Unavailable Quiñones Fannie Consulting Unavailable Adolfo, Travon Chi Primary Care Unavailable Johnny Duarte Attending Unavailable Adolfo, Travon Chi Primary Care Unavailable Adolfo, Travon Chi Referring Unavailable Johnny Duarte Attending Unavailable Adolfo, Travon Chi Primary Care Unavailable Adolfo, Travon Chi Referring Unavailable Jenae Johnson Attending Unavail able Adolfo, Travon Chi Primary Care Unavailable Adolfo, Travon Chi Referring Unavailable Candelaria Giang Attending Unavailable Adolfo, Travon Chi Primary Care Unavailable Russel Huang Attending Unavailable Johnny Duarte Attending Unavailable Adolfo, Travon Chi Attending Unavailable Adolfo, Travon Chi Primary Care Unavailable Adolfo, Travon Chi Primary Care Unavailable Adolfo, Travon Chi Referring Unavailable Adolfo, Travon Chi Attending Unavailable Adolfo, Travon Chi Primary Care Unavailable Freddie Esquivel Attending Unavailable Adolfo, Travon Chi Primary Care Unavailable Adolfo, Travon Chi Attending Unavailable Adolfo, Travon Chi Primary Care Unavailable oJhnny Duarte Consulting Unavailable Fannie Quiñones Attending Unavailable Quiñones, Fannie Admitting Unavailable Demiter, Eleazar Referring Unavailable Demiter, Eleazar Attending Unavailable Adolfo, Travon Chi Primary Care Unavailable Allergies Allergy Classification Reported Allergen(s) Allergy Type Date of Onset Reaction(s) Facility (1 source) Seasonal allergy; Translations: [SEASONAL ALLERGIES] Propensity to adverse reactions (disorder) 3 [facility] Repository Medications Current Medications Medication Drug Class(es) Dates Sig (Normalized) Sig (Original) aspirin 81 mg delayed release oral tablet (5 sources) Platelet Aggregation Inhibitor, Nonsteroidal Anti-inflammatory Drug Start: 10-29-2024 take 1 tablet by mouth once daily Aspirin (Adult Aspirin Regimen) 81 mg tablet,delayed release (DR/EC) Active 81 mg PO DAILY 1 0 October 29, 2024 12:00am Complies with drug therapy estrogens, conjugated (care home) 0.3 mg / medroxyPROGESTERone acetate 1.5 mg oral tablet (4 sources) Progestin, Estrogen Start: 12-19-2024 Conj Estrog-Medroxyp rogest Samuel [Conj Estrogen-Medrox yprogesterone 0.3 Mg-1.5 Mg Tablet] (Conj Estrogen-Medrox yprogesterone 0.3 Mg-1.5 Mg ) 0.3-1.5 mg tablet Active 1 {tbl} PO DAILY December 19, 2024 12:00am Complies with drug therapy metoprolol tartrate 25 mg oral tablet (20 sources) beta-Adrenergic Erica Start: 05-09-2024 take 1 tablet by mouth twice daily Metoprolol Tartrate 25 mg Tablet Active 25 mg PO TWICE A DAY 60 0 May 09, 2024 12:00am Complies with drug therapy Start: 07-24-2023 End: 05-09-2024 take 1 tablet by mouth once daily Metoprolol Succinate 25 mg tablet extended release 24 hr Discontinued 25 mg PO DAILY 60 0 July 25, 2023 12:20pm May 09, 2024 4:46pm BLOOD PRESSURE Thyroid (Pork) (Somis Thyroid) 60 mg tablet (9 sources) Start: 07-24-2023 take 1 tablet by mouth once daily Thyroid (Pork) (Somis Thyroid) 60 mg tablet Active 60 mg PO DAILY July 24, 2023 1:00am THYROID Start: 07-24-2023 take 1 tablet by mouth once da leonel Thyroid (Pork) (Somis Thyroid) 60 mg tablet Active 60 mg PO DAILY July 24, 2023 1:00am Start: 07-24-2023 take 1 tablet by mouth once da leonel Thyroid (Pork) (Somis Thyroid) 60 mg tablet Active 60 MG PO DAILY July 24, 2023 1:00am Start: 07-24-2023 take 1 tablet by mouth once da leonel Thyroid (Pork) (Somis Thyroid) 60 mg tablet Active 60 MG PO DAILY July 24, 2023 12:00am thyroid (care home) 60 mg oral tablet (1 source) Start: 07-24-2023 take 1 tablet by mouth once daily Thyroid (Pork) (Somis Thyroid) 60 mg tablet Active 60 mg PO DAILY July 24, 2023 1:00am THYROID Complies with drug therapy Tirzepatide (Weight Loss) (1 source) Start: 04-30-2025 Tirzepatide (W eight Loss) (Zepbound) 10 mg/0.5 mL pen injector Active 10 mg SC EVERY WEEK April 30, 2025 12:00am Complies with drug therapy Completed/Discontinued Medications Medication Drug Class(es) Dates Sig (Normalized) Sig (Original) amiodarone hydrochloride 200 mg oral tablet (12 sources) Antiarrhythmic Start: 10-29-2024 End: 10-29-2024 take [...] 200 mg PO TWICE A DAY 90 0 May 09, 2024 12:00am October 29, 2024 2:11pm 2 tabs (400mg) twice daily for 1 week, then 1 tab (200mg) twice daily for 1 week, then 1 tab daily thereafter apixaban 5 mg oral tablet (17 sources) Factor Xa Inhibitor Start: 07-25-2023 End: 10-29-2024 take 1 tablet by mouth twice daily Apixaban (Eliquis) 5 mg tablet Discontinued 5 mg PO TWICE A DAY 60 0 May 09, 2024 12:00am October 29, 2024 2:34pm cholecalciferol 0.025 mg oral tablet (13 sources) Vitamin D Start: 12-19-2024 End: 04-30-2025 take 1 tablet by mouth once daily Cholecalciferol (Vitamin D3) 25 mcg (1,000 unit) tablet Discontinued 25 ug PO DAILY December 19, 2024 12:00am April 30, 2025 8:13am Start: 08-14-2023 take 1 capsule by mo [facility] once daily Cholecalciferol (Vitamin D3) 25 mcg (1,000 unit) capsule Active 25 ug PO DAILY August 14, 2023 1:00am supplement Complies with drug therapy dicyclomine hydrochloride 20 mg oral tablet (4 sources) Anticholinergic Start: 12-19-2024 End: 04-30-2025 take 1 tablet by mouth three times daily Dicyclomine 20 mg tablet Discontinued 20 mg PO THREE TIMES A DAY 20 0 December 19, 2024 12:00am April 30, 2025 8:13am 24 hr dilTIAZem hydrochloride 120 mg extended release oral capsule (10 sources) Calcium Channel Erica Start: 07-25-2023 End: 05-08-2024 take 1 capsule by mouth once daily Diltiazem Hcl 120 mg Capsule,Extended Release 24hr Discontinued 120 mg PO DAILY 6 0 July 25, 2023 1:00am May 08, 2024 6:27am docusate sodium 100 mg oral capsule (4 sources) Start: 12-19-2024 End: 04-30-2025 take 1 capsule by mouth once daily Docusate Sodium (Colace) 100 mg capsule Discontinued 100 mg PO DAILY 20 0 December 19, 2024 12:00am April 30, 2025 8:12am estrogens, conjugated (care home) 0.625 mg/ml vaginal cream (14 sources) Estrogen Start: 10-29-2024 End: 04-30-2025 Conjugated Estrogens (Premarin) 0.625 mg/gram cream Discontinued 0.625 mg VAGINAL TWICE A WEEK October 29, 2024 12:00am April 30, 2025 8:13am Start: 08-14-2023 End: 05-08-2024 apply 0.625 mg topically two times weekly Conjugated Estrogens (Premarin) 0.625 mg/gram cream Discontinued 1 NMA TOPICAL TWICE A WEEK August 14, 2023 1:00am May 08, 2024 6:27am ondansetron 4 mg disintegrating oral tablet (4 sources) Serotonin-3 Receptor Antagonist Start: 12-19-2024 End: 04-30-2025 take 1 tablet by mouth every six hours as needed for nausea and vomiting Ondansetron 4 mg tablet,disintegrating Discontinued 4 mg PO EVERY 6 HOURS as needed for nausea and vomiting 20 0 December 19, 2024 12:00am April 30, 2025 8:12am Semaglutide (9 sources) Start: 08-14-2023 End: 09-11-2023 Semaglutide (Ozempic) [...] August 14, 2023 12:00am for 4 weeks Semaglutide (Weight Loss) (5 sources) Start: 10-29-2024 End: 04-30-2025 Semaglutide (Weight Loss) (W egovy) 0.25 mg/0.5 mL pen injector Discontinued 0.25 mg SC EVERY WEEK October 29, 2024 12:00am April 30, 2025 8:12am Start: 10-29-2024 Semaglutide (W eight Loss) (Wegovy) 0.25 mg/0.5 mL pen injector Active 0.25 mg SC EVERY WEEK October 29, 2024 12:00am Tirzepatide (1 source) Start: 09-11-2023 End: 10-29-2024 Tirzepatide (Mounjaro) 10 mg /0.5 mL pen injector Discontinued 40 mg SC EVERY WEEK September 11, 2023 1:00am October 29, 2024 2:10pm Tirzepatide (Mounjaro) 10 mg/0.5 mL pen injector (7 sources) Start: 09-11-2023 End: 10-29-2024 Tirzepatide (Mounjaro) [...] Problem Date Documented Date Episodic/Chronic Cardiac dysrhythmias (20 sources) Atrial fibrillation with rapid ventricular response; Translations: [Unspecified atrial fibrillation] Onset: 05-18-2007-24-2023 Chronic Cardiac dysrhythmias (9 sources) Tachycardia; Translations: [Tachycardia, unspecified] 08-14-2023 Episodic Disorders of lipid metabolism (18 sources) 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; Translations: [Familial hypercholesterolemia] 08-14-2023 Chronic Menopausal disorders (9 sources) Atrophic vaginitis; Translations: [Postmenopausal atrophic vaginitis] 08-14-2023 Chronic Nutritional deficiencies (9 sources) Vitamin D deficiency; Translations: [Vitamin D deficiency, unspecified] 08-14-2023 Chronic Osteoarthritis (9 sources) Osteoarthritis; Translations: [Unspecified osteoarthritis, unspecified site] 08-14-2023 Chronic Other endocrine disorders (1 source) Vershire's syndrome, unspecified; 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, unspecified] Onset: 12-16-19 Chronic Other gastrointestinal disorders (4 sources) Constipation; Translations: [Constipation, unspecified] 12-19-2024 Episodic Other nutritional; endocrine; and metabolic disorders (9 sources) Morbid obesity; Translations: [Morbid (severe) obesity due to excess calories] 08-14-2023 Chronic Other nutritional; endocrine; and metabolic disorders (10 sources) H/O: thyroid disorder; Translations: [Personal history of other endocrine, nutritional and metabolic disease] 07-24-2023 Episodic Other nutritional; endocrine; and metabolic disorders (1 source) Personal history of other endocrine, nutritional and metabolic disease; Translations: [Personal history of other endocrine, metabolic, and immunity disorders] 07-25-2023 Episodic Residual codes; unclassified (8 sources) FH: Cardiovascular disease; Translations: [Family history of ischemic heart disease and other diseases of the circulatory system] 07-24-2023 Episodic Residual codes; unclassified (3 sources) Family history of ischemic heart disease and other diseases of the circulatory system; Translations: [Family history of other cardiovascular diseases] 07-25-2023 Episodic Residual codes; unclassified (2 sources) Family history of cardiac disorder; Translations: [Family history of ischemic heart disease and other diseases of the circulatory system] 08-02-2023 Episodic Syncope (9 sources) Syncope; Translations: [Syncope and collapse] 08-14-2023 Episodic Thyroid disorders (10 sources) Hypothyroidism; Translations: [Hypothyroidism, unspecified] Onset: 03-16-2008-14-2023 Chronic Unclassified (1 source) Low back pain, unspecified; Translations: [Low back pain, unspecified] Onset: 12-30-19 Past or Other Problems Problem Classification Problem Date Documented Da te Episodic/Chronic Abdominal pain (5 sources) Abdominal pain; Translations: [Unspecified abdominal pain] Onset: 12-23-2024 12-19-2024 Episodic Malaise and fatigue (10 sources) Fatigue; Translations: [Other fatigue] Onset: 09-23-2024 08-14-2023 Episodic Other screening for suspected conditions (not mental disorders or infectious disease) (1 source) Encounter for screening mammogram for malignant neoplasm of breast; Translations: [Encounter for screening mammogram for malignant neoplasm of breast] Onset: 10-12-2024 Episodic Results Test Name Value Interpretation Reference Range Facility 12 Lead EKGon 05-18-2025 12 Lead EKG [facility] Cardiovascular Services [address] [place] [address] 12 Lead EKG 05/18/25 1209 MR#: [id number] Acct: [id number] Name: FIONA VASQUEZ Rep #: [id number] : 1965 59 From: Johnny Duarte MD Attending Dr: Dr. Fannie Quiñones MD Status: DIS IN Ordering Dr: Johnny Duarte MD Date: 05/18/25 Location: [facility] Sex: F C Admitted: 05/17/25 Test Reason : CHANGE Blood Pressure : */* mmHG Vent. Rate : 90 BPM Atrial Rate : 90 BPM P-R Int : 166 ms QRS Dur : 84 ms QT Int : 408 ms P-R-T Axes : 44 -2 1 degrees QTcB Int : 499 ms Normal sinus rhythm Nonspecific T wave abnormality Abnormal ECG When compared with ECG of 17-May-2025 09:35, Sinus rhythm has replaced Atrial fibrillation Vent. rate has decreased by 61 bpm Confirmed by Johnny Duarte ([id number]), assistant production editor ELHAM MIXON ([id number]) on 05/19/2025 7:17:42 AM Referred By: JESSICA Confirmed By: Johnny Duarte 05/19/25716 Date Johnny Duarte MD CC: Dr. Johnny Duarte MD; Dr. Fannie Quiñones MD; Dr. Travon Branham MD Signed Normal [facility] Basic Metabolic Profile (BMP )on 05-18-2025 BUN/CRE 15.1 RATIO Normal 10-20 [facility] Comment on above: Performed By: #### L 100.0500, L500.2500 ####[facility] [address] [place], [address] Calcium [Mass/Vol] 8.9 mg/dL Normal 7.6-11.0 [facility] Comment on above: Performed By: #### L 100.0500, L500.2500 ####[facility] [address] [place], [address] Chloride [Moles/Vol] 112 mmol/L High 98-108 [facility] Comment on above: Performed By: #### L 100.0500, L500.2500 ####[facility] [address] [place], [address] CO2 [Moles/Vol] 19.1 mmol/L Low 21.0-32.0 [facility] Comment on above: Performed By: #### L 100.0500, L500.2500 ####[facility] [address] [place], [address] Creatinine [Mass/Vol] 0.61 mg/dL Low 0.70-1.20 [facility] Comment on above: Performed By: #### L 100.0500, L500.2500 ####[facility] [address] [place], [address] ECRCL 98.76 ml/min Normal 50-250 [facility] Comment on above: Performed By: #### L 100.0500, L500.2500 ####[facility] [address] [place], [address] GAP 11 Normal 5-15 [facility] Comment on above: Performed By: #### L 100.0500, L500.2500 ####[facility] [address] [place], [address] GFR/1.73 sq M.predicted among non-blacks MDRD (S/P/Bld) [Vol rate/Area] 103 mL/min/{1.73_m2} Normal >60 [facility] Comment on above: Result Comment: mL/m in/1.73m2 CKD-EPI Creatinine Equation (2020) Performed By: #### L 100.0500, L500.2500 ####[facility] [address] [place], [address] Glucose [Mass/Vol] 90 mg/dL Normal 70-99 [facility] Comment on above: Performed By: #### L 100.0500, L500.2500 ####[facility] [address] [place], [address] Potassium [Moles/Vol] 3.6 mmol/L Normal 3.3-5.1 [facility] Comment on above: Performed By: #### L 100.0500, L500.2500 ####[facility] [address] [place], [address] Sodium [Moles/Vol] 142 mmol/L Normal 133-145 [facility] Comment on above: Performed By: #### L 100.0500, L500.2500 ####[facility] [address] [place], [address] Urea nitrogen [Mass/Vol] 9 mg/dL Normal 4-19 [facility] Comment on above: Performed By: #### L 100.0500, L500.2500 ####[facility] [address] [place], [address] CBC-Complete Blood Cnt No Di ffon 05-18-2025 Erythrocyte distribution width (RBC) [Ratio] 12.4 % Normal 11.6-14.6 [facility] Comment on above: Performed By: #### L 100.0500, L500.2500 ####[facility] [address] [place], [address] Hematocrit (Bld) [Volume fraction] 36.7 % Low 37-47 [facility] Comment on above: Performed By: #### L 100.0500, L500.2500 ####[facility] [address] [place], [address] Hemoglobin (Bld) [Mass/Vol] 12.5 g/dL Normal 12.0-15.0 [facility] Comment on above: Performed By: #### L 100.0500, L500.2500 ####[facility] [address] [place], [address] MCH (RBC) [Entitic mass] 30.0 pg Normal 27.0-32.0 [facility] Comment on above: Performed By: #### L 100.0500, L500.2500 ####[facility] [address] [place], [address] MCHC (RBC) [Mass/Vol] 34.1 g/dL Normal 32-36 [facility] Comment on above: Performed By: #### L 100.0500, L500.2500 ####[facility] [address] [place], [address] MCV (RBC) [Entitic vol] 88.2 fL Normal 81-99 [facility] Comment on above: Performed By: #### L 100.0500, L500.2500 ####[facility] [address] [place], [address] Platelet mean volume (Bld) [Entitic vol] 10.6 fL Normal 6.2-12.0 [facility] Comment on above: Performed By: #### L 100.0500, L500.2500 ####[facility] [address] [place], [address] Platelets (Bld) [#/Vol] 146 10*3/uL Low 150-450 [facility] Comment on above: Performed By: #### L 100.0500, L500.2500 ####[facility] [address] [place], [address] RBC (Bld) [#/Vol] 4.16 10*6/uL Low 4.2-5.4 [facility] Comment on above: Performed By: #### L 100.0500, L500.2500 ####[facility] [address] [place], [address] RDW SD 39.7 fl Normal 35.1-43.9 [facility] Comment on above: Performed By: #### L 100.0500, L500.2500 ####[facility] [address] [place], [address] WBC (Bld) [#/Vol] 4.7 10*3/uL Normal 4.4-11.0 [facility] Comment on above: Performed By: #### L 100.0500, L500.2500 ####[facility] [address] [place], [address] Discharge Instructionon Discharge Instruction [facility] Medical Records Department [address] [place] [address] Instructions for Home/Discharge Instructions 05/18/25 1250 MR#: [id number] Acct: [id number] Name: FIONA VASQUEZ Rep #: [id number] : 1965 59 From: Fannie Quiñones MD PCP: Dr. Travon Branham MD Status:ADM IN Discharge Instructions DC O2, CPAP, BIPAP needs Home O2 Discharge instructions: No Dressing / Incision Discharge Activity: - (Increase activity as tolerated) Follow Up Care Test Results: Test results from this visit will be discussed in further detail at your follow-up appointment, if applicable. Discharge Plan Admission Admit Date/Time: 05/17/25 14:05 Primary Reason for Your Visit: Afib with RVR Attending Provider: Fannie Quiñones Primary Care Provider: Travon Branham Chi Consulting Providers: Johnny Duarte Instructions Patient Instructions: AFib Dc Additional Instructions / Restrictions: DISCHARGE INSTRUCTIONS PLEASE READ *Please take this with you to your next doctors appointment* - You will need to follow-up in the cardiology office in 7 to 10 days, please call in discharge to schedule this appointment -You will be discharged on Eliquis 5 mg twice daily, you will need to take this uninterrupted -You will be discharged on amiodarone 400 mg twice daily for 4 more days after which she will switch to 200 mg twice daily for 2 weeks, further instructions can be provided at your cardiology follow-up appointment. This medicine has been sent to your preferred pharmacy on file -Please follow-up with your primary care physician to discuss your thyroid medication as you may need your labs repeated to see if further adjustments need to be made -You will stop taking your metoprolol on discharge and you will no longer take your aspirin -Please call your primary care provider's office upon discharge to schedule a hospital follow up within 1 week. -For any concerning signs or symptoms please call 911 or proceed to the nearest emergency department Discharge Orders/Prescriptions Prescriptions: New Eliquis 5 mg Tablet 5 mg PO BID 30 Days Qty: 60 0RF amiodarone 200 mg tablet See Rx Instructions .ROUTE .COMPLEX Qty: 30 0RF Rx Instructions: Please take 400 mg (2 tabs) twice daily for 4 days and then switch to 200 mg twice daily for 2 weeks Continued cholecalciferol (vitamin D3) 25 mcg (1,000 unit) capsule 25 mcg PO DAILY Zepbound 10 mg/0.5 mL pen injector 10 mg subcut QWEEK thyroid (pork) [Somis Thyroid] 60 mg tablet 60 mg PO DAILY Prempro 0.3-1.5 mg tablet 1 tab PO DAILY Discontinued aspirin [Adult Aspirin Regimen] 81 mg tablet,delayed release (DR/EC) 81 mg PO DAILY Qty: 1 0RF metoprolol tartrate 25 mg Tablet 25 mg PO BID Qty: 60 0RF Referrals / Follow Up: Travon Branham Chi, MD [Primary Care Provider, Geriatrics] - Within 1 Week Jenae Ocasio PA [Med Staff - [facility] Practice Prof, Cardiology] - Within 1 Week Disposition Disposition (needs filled in before D/C Order can be placed): Home, Self Care 05/18/25 8967 Fannie Quiñones MD CC: Dr. Johnny Duarte MD; Dr. Travon Branham MD Signed Normal [facility] 12 Lead EKGon 05-17-2025 12 Lead EKG [facility] Cardiovascular Services [address] [place] [address] 12 Lead EKG 05/17/25 0935 MR#: [id number] Acct: [id number] Name: FIONA VASQUEZ Rep #: [id number] : 1965 59 From: Johnny Duarte MD Attending Dr: Dr. Fannie Quiñones MD Status: ADM IN Ordering Dr: Victoria Mera MD Date: 05/17/25 Location: [facility] Sex: F C Admitted: 05/17/25 Test Reason : PALPS Blood Pressure : */* mmHG Vent. Rate : 151 BPM Atrial Rate : * BPM P-R Int : * ms QRS Dur : 80 ms QT Int : 288 ms P-R-T Axes : * 22 -20 degrees QTcB Int : 456 ms Critical Test Result: High HR Atrial fibrillation with rapid ventricular response Low voltage QRS Nonspecific T wave abnormality Abnormal ECG Confirmed by Johnny Duarte ([id number]), assistant production editor ELHAM MIXON ([id number]) on 05/18/2025 8:54:47 AM Referred By: SILAS/NIKI Confirmed By: Johnny Duarte 05/18/25 0854 Date Johnny Duarte MD CC: Dr. Victoria Mera MD; Dr. Fannie Quiñones MD; Dr. Travon Branham MD Signed Normal [facility] Basic Metabolic Profile (BMP )on 05-17-2025 BUN/CRE 19.2 RATIO Normal 10-20 [facility] Comment on above: Performed By: #### L 500.2500, L100.0100, L501.5200, L501.9520 ####[facility] [address] [place], [address] Calcium [Mass/Vol] 9.6 mg/dL Normal 7.6-11.0 [facility] Comment on above: Performed By: #### L 500.2500, L100.0100, L501.5200, L501.9520 ####[facility] [address] [place], [address] Chloride [Moles/Vol] 108 mmol/L Normal 98-108 [facility] Comment on above: Performed By: #### L 500.2500, L100.0100, L501.5200, L501.9520 ####[facility] [address] [place], [address] CO2 [Moles/Vol] 22.9 mmol/L Normal 21.0-32.0 [facility] Comment on above: Performed By: #### L 500.2500, L100.0100, L501.5200, L501.9520 ####[facility] [address] [place], [address] Creatinine [Mass/Vol] 0.71 mg/dL Normal 0.70-1.20 [facility] Comment on above: Performed By: #### L 500.2500, L100.0100, L501.5200, L501.9520 ####[facility] [address] [place], [address] ECRCL 85.16 ml/min Normal 50-250 [facility] Comment on above: Performed By: #### L 500.2500, L100.0100, L501.5200, L501.9520 ####[facility] [address] [place], [address] GAP 9 Normal 5-15 [facility] Comment on above: Performed By: #### L 500.2500, L100.0100, L501.5200, L501.9520 ####[facility] [address] [place], [address] GFR/1.73 sq M.predicted among non-blacks MDRD (S/P/Bld) [Vol rate/Area] 98 mL/min/{1.73_m2} Normal >60 [facility] Comment on above: Result Comment: mL/m in/1.73m2 CKD-EPI Creatinine Equation (2020) Performed By: #### L 500.2500, L100.0100, L501.5200, L501.9520 ####[facility] [address] [place], [address] Glucose [Mass/Vol] 100 mg/dL High 70-99 [facility] Comment on above: Performed By: #### L 500.2500, L100.0100, L501.5200, L501.9520 ####[facility] [address] [place], [address] Potassium [Moles/Vol] 4.3 mmol/L Normal 3.3-5.1 [facility] Comment on above: Performed By: #### L 500.2500, L100.0100, L501.5200, L501.9520 ####[facility] [address] [place], [address] Sodium [Moles/Vol] 140 mmol/L Normal 133-145 [facility] Comment on above: Performed By: #### L 500.2500, L100.0100, L501.5200, L501.9520 ####[facility] [address] [place], [address] Urea nitrogen [Mass/Vol] 14 mg/dL Normal 4-19 [facility] Comment on above: Performed By: #### L 500.2500, L100.0100, L501.5200, L501.9520 ####[facility] [address] [place], [address] CBC W/Diff, Automatedon 11-0 3-202 Absolute Lymph 2.13 X10 3/uL Normal 0.83-4.51 [facility] Comment on above: Performed By: #### L 500.2500, L100.0100, L501.5200, L501.9520 #### [facility] [address] [place], [address] Absolute Neut 4.1 X10 3/uL Normal 2.0-7.7 [facility] Comment on above: Performed By: #### L 500.2500, L100.0100, L501.5200, L501.9520 #### [facility] [address] [place], [address] Basophils/100 WBC (Bld) 0.4 % Normal 0-1 [facility] Comment on above: Performed By: #### L 500.2500, L100.0100, L501.5200, L501.9520 #### [facility] [address] [place], [address] Eosinophils/100 WBC (Bld) 0.6 % Normal 0-5 [facility] Comment on above: Performed By: #### L 500.2500, L100.0100, L501.5200, L501.9520 #### [facility] [address] [place], [address] Erythrocyte distribution width (RBC) [Ratio] 12.2 % Normal 11.6-14.6 [facility] Comment on above: Performed By: #### L 500.2500, L100.0100, L501.5200, L501.9520 #### [facility] [address] [place], [address] Hematocrit (Bld) [Volume fraction] 38.9 % Normal 37-47 [facility] Comment on above: Performed By: #### L 500.2500, L100.0100, L501.5200, L501.9520 #### [facility] [address] [place], [address] Hemoglobin (Bld) [Mass/Vol] 13.6 g/dL Normal 12.0-15.0 [facility] Comment on above: Performed By: #### L 500.2500, L100.0100, L501.5200, L501.9520 #### [facility] [address] [place], [address] IG% 0.100 Normal 0.0-0.9 [facility] Comment on above: Result Comment: IG% - Immature Granulocytes (promyelocytes, myelocytes and metamyelocytes) > 1% indicates that a LEFT SHIFT is Present. Performed By: #### L 500.2500, L100.0100, L501.5200, L501.9520 #### [facility] [address] [place], [address] Lymphocytes/100 WBC (Bld) 31.6 % Normal 19-41 [facility] Comment on above: Performed By: #### L 500.2500, L100.0100, L501.5200, L501.9520 #### [facility] [address] [place], [address] MCH (RBC) [Entitic mass] 30.6 pg Normal 27.0-32.0 [facility] Comment on above: Performed By: #### L 500.2500, L100.0100, L501.5200, L501.9520 #### [facility] [address] [place], [address] MCHC (RBC) [Mass/Vol] 35.0 g/dL Normal 32-36 [facility] Comment on above: Performed By: #### L 500.2500, L100.0100, L501.5200, L501.9520 #### [facility] [address] [place], [address] MCV (RBC) [Entitic vol] 87.6 fL Normal 81-99 [facility] Comment on above: Performed By: #### L 500.2500, L100.0100, L501.5200, L501.9520 #### [facility] [address] [place], [address] Monocytes/100 WBC (Bld) 6.8 % Normal 0-10 [facility] Comment on above: Performed By: #### L 500.2500, L100.0100, L501.5200, L501.9520 #### [facility] [address] [place], [address] Neutrophils/100 WBC (Bld) 60.5 % Normal 47-70 [facility] Comment on above: Performed By: #### L 500.2500, L100.0100, L501.5200, L501.9520 #### [facility] [address] [place], [address] Nucleated RBC (Bld) [#/Vol] 0 10*3/uL Normal 0-5 [facility] Comment on above: Performed By: #### L 500.2500, L100.0100, L501.5200, L501.9520 #### [facility] [address] [place], [address] Platelet mean volume (Bld) [Entitic vol] 10.3 fL Normal 6.2-12.0 [facility] Comment on above: Performed By: #### L 500.2500, L100.0100, L501.5200, L501.9520 #### [facility] [address] [place], [address] Platelets (Bld) [#/Vol] 204 10*3/uL Normal 150-450 [facility] Comment on above: Performed By: #### L 500.2500, L100.0100, L501.5200, L501.9520 #### [facility] [address] [place], [address] RBC (Bld) [#/Vol] 4.44 10*6/uL Normal 4.2-5.4 [facility] Comment on above: Performed By: #### L 500.2500, L100.0100, L501.5200, L501.9520 #### [facility] [address] [place], [address] RDW SD 39.1 fl Normal 35.1-43.9 [facility] Comment on above: Performed By: #### L 500.2500, L100.0100, L501.5200, L501.9520 #### [facility] [address] [place], [address] WBC (Bld) [#/Vol] 6.8 10*3/uL Normal 4.4-11.0 [facility] Comment on above: Performed By: #### L 500.2500, L100.0100, L501.5200, L501.9520 #### [facility] [address] [place], [address] Chest PA and Lateralon 05-17 Chest PA and Lateral [facility] Imaging Services [address] [place] [address] Chest PA and Lateral MR#: [id number] Acct: [id number] Name: FIONA VASQUEZ Rep #: [id number] : 1965 F 59 From: Jean De La Fuente DO PCP: Dr. Travon Branham MD Status: REG ER Study: Chest PA and Lateral Date of Exam: 05/17/25 Exam# [id number] Ordering Dr: Victoria Mera MD PROCEDURE: CHEST PA AND LATERAL 05/17/2025 REASON FOR EXAM: CHEST PAIN TECHNIQUE: Procedure Code: RADCXR Modality: DX Procedure: CHEST PA AND LATERAL COMPARISON: 08 May 2024 FINDINGS: The lungs are adequately aerated bilaterally without pleural effusion, pneumothorax, or focal airspace disease. Cardiomediastinal silhouette is within normal limits. Degenerative changes of the shoulders and spine. RAD/Chest PA and Lateral IMPRESSION: No evidence of acute cardiopulmonary abnormality. Reading Location: [place] [address] CC: Dr. Victoria Mera MD; Dr. Travon Branham MD Truck Hop: Signed Normal [facility] Consultation - Cardiologyon 05-17-2025 Consultation - Cardiology [facility] Medical Records Department [address] [place] [address] Consultation - Cardiology 05/17/25 1232 MR#: [id number] Acct: [id number] Name: FIONA VASQUEZ Rep #: [id number] : 1965 59 From: Johnny Duarte MD PCP: Dr. Travon Branham MD Status:REG ER Location: ED Assessment Plan Assessment/Plan (1) Atrial fibrillation: QUALIFIERS: Atrial fibrillation type: paroxysmal Qualified Code(s): I48.0 - Paroxysmal atrial fibrillation PLAN: It appears from the patient's symptoms and her iWatch criteria that she has been in atrial fibrillation at least episodically for 24-48 hours. Her [id number] score equals 1 and she has been on aspirin. However in the past when she was cardioverted she is placed on Eliquis for 6 weeks. At this point in time I would recommend we try to rate control her by giving her oral amiodarone loading 400 mg twice daily we will give her the first dose now. If her heart rate is 120 or less and she is asymptomatic she should be able to be discharged to home. I did go over this in detail with the patient the loading would go as such: Amiodarone 400 mg twice daily x 5 days. Then amiodarone 200 mg twice daily x 2 weeks. Then amiodarone 200 mg daily. The patient will be reevaluated in 5 to 7 days in the [place] [facility] office with an ECG and an YOLANDE visit. Her TSH and free T4 will need to be checked in 4 weeks. She should continue her current thyroid replacement dose for now. The patient will need an echocardiogram done at 3-4 weeks hopefully she will convert into sinus rhythm in the interim. Would recommend she be placed on Eliquis 5 mg twice daily for at least 6 weeks of sinus rhythm and then can drop back to the aspirin daily dose. Her aspirin should be stopped while she is on Eliquis. If you are unable to get her heart rate consistently under 120 in the emergency department she will require admission for IV amiodarone loading and rapid loading with oral dosing. PLAN: Plan 1. Will place the patient on amiodarone 400 mg twice daily x 5 days and then 200 mg twice daily x 2 weeks as noted above. 2. If the patient is discharged from the ED she needs to follow-up in 5 to 7 days in the [place] [facility] office with YOLANDE and an ECG. 3. The patient was instructed to monitor her iWatch at home if her heart rate is less than 50 she should stop both the metoprolol and the amiodarone. Once her heart rates above 50 she should reinstitute the metoprolol twice daily dosing. 4. The patient's heart rate does not come under decent control or she remains symptomatic would have to reconsider admission today. HPI Consult Data Date of Consult: 05/17/25 HPI Narrative Reason for Consultation: Paroxysmal atrial fibs HPI Narrative: FIONA VASQUEZ, is a 59 F who presents with a 2-day history of feeling like she was back in atrial fibrillation. Yesterday she had episodes of lightheadedness that were off and on all day her iWatch said her heart rate was up in the 150???160 range. She woke up this morning feeling the same way with a heart rate up in the 160 range. She came to the emergency department where she is documented to be in atrial fibrillation at a heart rate of 150. Patient reports that when she has had atrial fibs in the past you had these lightheaded spells. Currently the patient denies any chest pain she denies any shortness of breath or significant dyspnea on exertion. She denies any lower extremity edema. Patient's last echocardiogram July 2023 which showed a normal ejection fraction of 55% normal atrial sizes and no significant valvular heart disease. In April 2024 the patient was admitted with atrial fibrillation and was cardioverted with IV loop amiodarone. She has a [id number] score of 1 because she is female. The patient was transiently on Eliquis and then switched to aspirin. She has been taking her aspirin on a daily basis. But it is difficult to be certain how long she has been in atrial fibrillation at this time. The patient has been on metoprolol tartrate 25 mg twice daily she was trialed on combination of beta-erica and Cardizem when she was hospitalized in April without any success and rate control. Her rate was finally controlled and she spontaneously converted with amiodarone. The patient is now requesting to be placed back on amiodarone at least short-term. The patient received 250 mg IV bolus of amiodarone in the emergency department her heart rate has come down into the 125???130 range but she remains in atrial fibs. The patient denies any recent change in medications she has not been sick recently she and her both had a chronic cough for a 6-week timeframe but that was several weeks ago. She denies any recent overindulgence with alcohol or caffeine. The patient is on thyroid replacement. Her TSH is 0.117 which is slightly low today. PFSH (more content not included)... Normal [facility] Echo Completeon 05-17-2025 Echo Complete [facility] [address] [place] [address] Echo Complete 05/17/25 1526 MR#: [id number] Acct: [id number] Name: FIONA VASQUEZ Rep #: [id number] : 1965 59 From: Russel Huang MD Attending Dr: Dr. Fannie Quiñones MD Status: ADM IN Ordering Dr: Fannie Quiñones MD Date: 05/17/25 Location: [facility] Sex: F C Admitted: 05/17/25 Reason For Study Reason For Study: ATRIAL FIB-FLUTTER Procedure This was a 2D Doppler, Color Flow transthoracic echocardiogram. Exam performed portable in patient room. Left Ventricle Normal size and thickness. Mild generalized LV hypokinesis. Estimated LVEF 40%. Unable to assess diastolic dysfunction due to arrhythmia. Right Ventricle Normal right ventricle. Atria The left and right atria are normal. Mitral Valve Mild (1+) mitral valve insufficiency. Tricuspid Valve Mild (1+) tricuspid valve insufficiency. Normal pulmonary artery pressure. Aortic Valve Trisinus/trileaflet aortic valve. Pulmonic Valve The pulmonic valve is not well visualized. Great Vessels Normal sized aortic root. Pericardium/Pleural No pericardial effusion. MMode/2D Measurements Calculations LVIDd: 4.3 cm IVSd: 0.90 cm Ao root diam: 2.9 cm LVIDs: 2.9 cm LVPWd: 0.92 cm LA dimension: 3.7 cm RVDd: 2.3 cm FS: 31.5 % LAV(MOD-bp): 51.2 ml LVAd ap4: 16.4 cm2 LVAd ap2: 23.2 cm2 LAV(MOD-bp) Indexed: 28.5 ml/m2 LVLd ap4: 6.5 cm LVLd ap2: 7.1 cm LAV(MOD-sp2): 49.3 ml EDV(MOD-sp4): 37.3 ml EDV(MOD-sp2): 66.6 ml LAV(MOD-sp4): 46.8 ml EDV(sp4-el): 35.3 ml EDV(sp2-el): 64.4 ml LVAs ap4: 10.4 cm2 LVAs ap2: 12.3 cm2 LVLs ap4: 5.9 cm LVLs ap2: 5.8 cm ESV(MOD-sp4): 17.8 ml ESV(MOD-sp2): 24.0 ml ESV(sp4-el): 15.6 ml ESV(sp2-el): 22.1 ml EF(MOD-sp4): 52.3 % EF(MOD-sp2): 63.9 % EF(sp4-el): 55.8 % SV(MOD-sp4): 19.5 ml SV(MOD-sp2): 42.5 ml SV(sp4-el): 19.7 ml SI(MOD-sp4): 10.8 ml/m2 SI(MOD-sp2): 23.6 ml/m2 LA A4 area: 17.8 cm2 LA dimension(2D): 4.1 cm RA A4 area: 10.4 cm2 TAPSE: 1.1 cm Time Measurements MV dec time: 0.13 sec Doppler Measurements Calculations MV E max ramon: 95.2 cm/sec Ao V2 max: 111.3 cm/sec LV V1 max: 99.3 cm/sec Ao max P.0 mmHg LV V1 max P.9 mmHg Ao V2 mean: 75.9 cm/sec LV V1 mean P.0 mmHg Ao mean P.7 mmHg LV V1 mean: 65.5 cm/sec Ao V2 VTI: 16.7 cm LV V1 VTI: 16.4 cm AV (velocity ratio): 0.98 PA V2 max: 84.0 cm/sec TR max ramon: 217.9 cm/sec TR max P.0 mmHg ECHO/Echo Complete Interpretation Summary Mild generalized LV hypokinesis. Estimated LVEF 40%. Mild (1+) mitral valve insufficiency. Mild (1+) tricuspid valve insufficiency. Ordering Physician: Fannie Qiuñones Referring Physician: Travon Branham Chi Performed By: Mandy Crystal RDCS 05/17/25 1623 Date Russel Huang MD CC: Dr. Fannie Quiñones MD; Dr. Travon Branham MD Date Dictated: 05/17/25 1526 Date Transcribed: 05/17/251622 Truck Hop: Signed Normal [facility] Emergency Department Summary on 05-17-2025 Emergency Department Summary [facility] Medical Records Department [address] [place] [address] Emergency Department Summary 05/17/25 MR#: [id number] Acct: [id number] Name: FIONA VASQUEZ Rep #: [id number] : 1965 59 From: Victoria Mera MD PCP: Dr. Travon Branham MD Status:ADM IN Location: [place] [address] Victoria Mera MD on 05/17/25 at 1827 EKG shows A-fib with RVR. No ischemic changes noted. 05/17/251826 Cosigner Signature (if applicable): cc: Dr. Travon Branham MD * Signed HPI History of Present Illness Chief Complaint: Palpitations Narrative Narrative: Patient is a 59-year-old female presenting to the emergency department for palpitations. Patient has a past medical history of A-fib and hyperlipidemia. States that she used to take amiodarone and Eliquis but has since been told to not take these per her hair tinter, Dr. Diane. Patient states that this morning around 5 AM she thinks she went into A-fib. States that she is feeling her heart beating irregular that she describes as palpitations. She denies any chest pain, shortness of breath, fevers, chills. Denies any recent travel or hospitalizations or surgeries. Denies any lower extremity edema. Denies any lightheadedness or dizziness at time of evaluation. She states that sometimes when she stands up too quick she will get lightheaded. States that she did take an amiodarone prior to coming here today. [facility] Medical History Hyperlipidemia Atrial fibrillation Fatigue Familial hypercholesterolemia due to heterozygous low density lipoprotein (LDL) receptor mutation Osteoarthritis Tachycardia Vitamin D deficiency Atrophic vaginitis Morbid obesity Hypothyroid Syncope Home Medications ???Medication ???Instructions ???Recorded ???Last Taken ???Type thyroid (pork) 60 mg tablet 60 mg PO DAILY THYROID 07/24/23 History (Somis Thyroid) cholecalciferol (vitamin D3) 25 25 mcg PO DAILY supplement 4 05/17/25 History mcg (1,000 unit) capsule metoprolol tartrate 25 mg tablet 25 mg PO BID heart rate #60 tabs 1 05/17/25 Rx aspirin 81 mg tablet,delayed 81 mg PO DAILY #1 TAB 10/29/2410/06 Rx release (Adult Aspirin Regimen) conj estrogen-medroxyprogest erone 1 tab PO DAILY hormone health 02/0505/17/25 History 0.3 mg-1.5 mg tablet (Prempro) tirzepatide (weight loss) 10 10 mg subcut QWEEK weight 04/30/25 05/10/25 History mg/0.5 mL subcutaneous pen management injector (Zepbound) Allergy/AdvReac Type Severity Reaction Status Date / Time No Known Allergies Allergy Verified 05/17/25 09:27 Family History Brother Heart failure Mother Hepatitis a without hepatic coma Brother Afib Sister Afib Father Cancer Surgical History Hx of abdominoplasty Hx of thyroidectomy Social History Smoking Status: Never smoker alcohol intake: never substance use type: does not use caffeine: Yes Type: coffee Number of servings: 2 ROS ROS ED ROS Narrative See HPI EXAM Physical Exam Narrative Exam Narrative: Vital signs: Reviewed General: Alert and orientedx3. No acute distress HEENT: Head is normocephalic and atraumatic, sinuses nontender, pupils equal round and reactive. Nares are patent. Oropharynx and throat exams normal. Neck: Supple without lymphadenopathy nontender Cardiovascular: Irregularly irregular rate and rhythm, no murmurs. No rubs or gallops. Normal S1 and S2 Respiratory: Clear to auscultation bilaterally. No wheezes, rales, rhonchi Abdominal: Soft and nontender. Normal bowel sounds. No guarding or rebound. Nonsurgical abdomen Extremities: No lower extremity edema noted. No tenderness. No bruising. Normal range of motion. Normal sensation. Skin: No rash or redness. Neurological: Cranial nerves II through XII are grossly intact. Normal strength and sensation. Normal cerebellar function The rest of the physical exam is unremarkable Const Vital Signs: 05/17/25 09:27 05/17/25 10:27 05/17/25 10:28 Temperature 97.7 F L Temperature Source Oral Pulse Rate 82 155 H Respiratory Rate 16 19 H Respiratory Effort Normal Non-Labored Blood Pressure 105/79 89/63 L Blood Pressure Mean 87 71 Blood Pressure Source Pulse Ox 99 94 Oxygen Delivery Method Room Air Room Air 05/17/25 10:38 05/17/25 10:48 05/17/25 11:00 Temperature Temperature Source Pulse Rate 159 H 161 H 154 H Respiratory Rate 27 H 22 H 18 Respiratory Effort Blood Pressure 94/66 101/78 86/72 L Blood Pressure Mean 75 85 76 Blood Pressu (more content not included)... Normal [facility] Free T3on 05-17-2025 Free T3 [Mass/Vol] 4.0 pg/mL High 2.18-3.98 [facility] Comment on above: Performed By: #### L 501.84456, L506.0400 #### [facility] Laboratory [address] [facility] [place], [address] H AND P Exam - Hospitaliston 05-17-2025 H&P Exam - Hospitalist [facility] Medical Records Department [address] [place] [address] H P Exam - Hospitalist 05/17/25 1405 MR#: [id number] Acct: [id number] Name: FIONA VASQUEZ Rep #: [id number] : 1965 59 From: Fannie Quiñones MD PCP: Dr. Travon Branham MD Status:REG ER Location: ED HPI - General General Date of Admission: 06/16/25 Date of Service: 05/17/25 Chief Complaint: Heart palpitations HPI Narrative FIONA VASQUEZ, is a 59 F with a history of hypothyroidism, A-fib and hyperlipidemia who presented to [facility] ED 06/13/2024 with palpitations. Used to be on amiodarone and Eliquis for A-fib however due to [id number] of 1 for being female she was taken off of anticoagulation and ultimately was transition from amiodarone to p.o. metoprolol. Around 5 AM she notes she began to have palpitations and some lightheadedness when standing up. In the ED patient noted to be in A-fib with RVR with a heart rate of 155 and blood pressure 89/63. CBC within normal limits, BMP with a glucose 100 but otherwise within normal limits, mag 2.1, TSH 0.117. Cardiology contacted and recommended Amio bolus and p.o. Amio and if heart rate less than 120 she be discharged home however despite these interventions heart rate went back to 140s to 150s so hospitalist contacted for admission. Patient evaluated at bedside, reports still feeling palpitations but feeling better than she was, no longer feeling lightheaded. Denies any chest pain or shortness of breath, no other new or acute complaints. [facility] Medical History Hyperlipidemia Atrial fibrillation Fatigue Familial hypercholesterolemia due to heterozygous low density lipoprotein (LDL) receptor mutation Osteoarthritis Tachycardia Vitamin D deficiency Atrophic vaginitis Morbid obesity Hypothyroid Syncope Home Medications ???Medication ???Instructions ???Recorded ???Last Taken ???Type thyroid (pork) 60 mg tablet 60 mg PO DAILY THYROID 07/24/23 Un known History (Somis Thyroid) cholecalciferol (vitamin D3) 25 25 mcg PO DAILY supplement 4 Unknown History mcg (1,000 unit) capsule metoprolol tartrate 25 mg tablet 25 mg PO BID #60 tabs 05/09/24 Unk nown Rx aspirin 81 mg tablet,delayed 81 mg PO DAILY #1 TAB 10/29/24 Unk nown Rx release (Adult Aspirin Regimen) conj estrogen-medroxyprogest erone 1 tab PO DAILY 12/19/24 Unknown H istory 0.3 mg-1.5 mg tablet (Prempro) tirzepatide (weight loss) 10 10 mg subcut QWEEK 04/30/25 Unknow n History mg/0.5 mL subcutaneous pen injector (Zepbound) Allergy/AdvReac Type Severity Reaction Status Date / Time No Known Allergies Allergy Verified 05/17/25 09:27 Family History Brother Heart failure Mother Hepatitis a without hepatic coma Brother Afib Sister Afib Father Cancer Surgical History Hx of abdominoplasty Hx of thyroidectomy Social History Smoking Status: Never smoker alcohol intake: never substance use type: does not use caffeine: Yes Type: coffee Number of servings: 2 ROS ROS Narrative General: Denies fever/chills HENT: Denies headache, denies stuffy nose, denies sore throat EYES: Denies changes in vision Resp: Denies cough, denies shortness of breath Cardiac: Denies chest pain, some palpitations noted GI: Denies abdominal pain, denies changes in bowel, denies nausea/vomiting : Denies changes in urination Extremity: Denies swelling MSK: Denies weakness Neuro: Denies any numbness/tingling Heme: Denies any bleeding or bruising Skin: Denies rashes Psychiatric: No complaints voiced Vital Signs Vital Signs Vital Signs: 05/17/25 09:27 05/17/25 10:27 05/17/25 10:28 Temperature 97.7 F L Temperature Source Oral Pulse Rate 82 155 H Respiratory Rate 16 19 H Respiratory Effort Normal Non-Labored Blood Pressure 105/79 89/63 L Blood Pressure Mean 87 71 Blood Pressure Source Pulse Ox 99 94 Oxygen Delivery Method Room Air Room Air 05/17/25 10:38 05/17/25 10:48 05/17/25 11:00 Temperature Temperature Source Pulse Rate 159 H 161 H 154 H Respiratory Rate 27 H 22 H 18 Respiratory Effort Blood Pressure 94/66 101/78 86/72 L Blood Pressure Mean 75 85 76 Blood Pressure Source Pulse Ox 99 92 95 Oxygen Delivery Method Room Air Room Air Room Air 05/17/25 11:24 05/17/25 11:44 05/17/25 12:00 Temperature Temperature Source Pulse Rate 152 H 115 H 112 H Respiratory Rate 23 H 30 H Respiratory Effort Blood Pressure 92/66 88/75 L 103/86 H Blood Pressure Mean 74 79 91 (more content not included)... Normal [facility] Magnesiumon 05-17-2025 Magnesium [Mass/Vol] 2.1 mg/dL Normal 1.5-2.2 [facility] Comment on above: Performed By: #### L 500.2500, L100.0100, L501.5200, L501.9520 ####[facility] [address] [place], [address] T4 Free Directon 05-17-2025 T4 FREE DIRECT 1.20 ng/dL Normal 0.76-1.46 [facility] Comment on above: Performed By: #### L 501.00830, L506.0400 #### [facility] [address] [place], [address] Thyroid Stim Hormone (TSH)on 05-17-2025 TSH 0.117 uIU/mL Low 0.300-4.200 [facility] Comment on above: Performed By: #### L 500.2500, L100.0100, L501.5200, L501.9520 ####[facility] [address] [place], [address] Cardiology Visit Reporton Cardiology Visit Report [facility] [address] [place] [address] OFFICE VISIT Date of Service: 04/30/25 MR#: [id number] Acct: [id number] Name: FIONA VASQUEZ Rep #: [id number] : 1965 Provider: ELSIE thorpe Age/Sex: 59/F Location: [facility] Status: Signed HPI HPI History of Present Illness Details: Pleasant 59-year-old lady who presents to the office today for a cardiovascular follow-up visit. She had no previous cardiac history but a family history of atrial fibrillation. She tells me that she was admitted to the hospital in July of 2023 with an irregular heartbeat and was diagnosed as having atrial fibrillation. She had a rapid ventricular response rate she had a CTA of her chest with demonstrated no evidence of pulmonary embolism. She had an echocardiogram which demonstrated preserved ejection fraction of 55% with eccentric mild mitral regurgitation. She was placed on a beta-erica and calcium channel erica, and she spontaneously converted to sinus rhythm after a Cardizem drip. She was discharged home on Cardizem and apixaban for possible cardioversion as an outpatient. From a cardiac standpoint, the patient is doing well. She denies any palpitations, chest pain, pressure or heaviness. She denies SOB, Orthopnea, and PND. She does not have bleeding issues; no blood in urine, stool, or nosebleeds. She denies any decrease in energy level, myalgias, or claudication. She does not have edema, or sudden weight gain. She denies lightheadedness, dizziness, syncopal or near syncopal episodes, and headaches. Intake Vital Signs 10/29/24 14:05 12/19/24 10:08 04/30/25 07:51 Height 5 ft 5 in 5 ft 5 in 5 ft 5 in Weight: 160 lb BMI 26.6 BP 109/72 Blood Pressure Location Lt brachial Position Sitting Respiration 18 Pulse 93 Pulse Source Monitor Pulse Oximetry (%) 99 Oxygen Delivery Method room air Intake Visit Reasons: 6 M FU Gardening Manager Required: No Accompanied by: Self Is patient in pain?: No Allergies No Known Allergies Allergy (Verified 04/30/25 08:16) Medications ???Medication ???Instructions ???Recorded ???Confirmed ???Type thyroid (pork) 60 mg tablet 60 mg PO DAILY THYROID 07/24/23 History (Somis Thyroid) cholecalciferol (vitamin D3) 25 25 mcg PO DAILY supplement 4 04/30/25 History mcg (1,000 unit) capsule metoprolol tartrate 25 mg tablet 25 mg PO BID #60 tabs 05/09/24 Rx aspirin 81 mg tablet,delayed 81 mg PO DAILY #1 TAB 10/29/24 Rx release (Adult Aspirin Regimen) conj estrogen-medroxyprogest erone 1 tab PO DAILY 12/19/24 04/30/25 History 0.3 mg-1.5 mg tablet (Prempro) tirzepatide (weight loss) 10 10 mg subcut QWEEK 04/30/25 History mg/0.5 mL subcutaneous pen injector (Zepbound) Ejection fraction %: 55 Have you fallen [...] servings: 2 ROS Const Const: Negative for fatigue, weakness or headache(s) Eyes Eyes: Negative for change in vision ENT ENT: Negative for headache(s), dizziness, Nosebleed/epistaxis or balance problems Cardio Chest Pain: No Palpitations: No Edema: None Resp Respiratory: Negative for SOB with activity GI GI: Negative nausea, vomiting, heartburn or bright, red blood in stools : Negative for hematuria Musc Musc: Negative for balance problems Neuro Neuro: Negative for dizziness, lightheadedness, syncope, headache(s) or weakness Endo Endo: Negative for fatigue Cardiology Exam Const Appearance: cooperative, no acute distress and well developed Nutritional Appearance: average body habitus and overweight Orientation: alert, awake and oriented x3 Head Head: normocephalic and atraumatic Ears: hearing grossly normal bilaterally Nose: external nose normal Face and Sinus: face symmetric Eyes General: appearance normal, both eyes and all related structures Eyelids: eyelids nor (more content not included)... Normal [facility] Absolute lymphocyte countOrd ered By: Travon Branham on 03-09-2025 Lymphocytes Auto (Unsp spec) [#/Vol] 2.15 10*3/uL 0.83-4.51 [facility] Absolute neutrophil countOrd ered By: Travon Branham on 03-09-2025 Neutrophils (Bld) [#/Vol] 3.0 10*3/uL 2.0-7.7 [facility] Anion gap in Serum or Plasma Ordered By: Travon Branham on 03-09-2025 Anion gap [Moles/Vol] 13 mmol/L 5-15 [facility] Automated lymphocyte count a s percentage of total leukocytesOrdered By: Travon Branham on 03-09-2025 Lymphocytes/100 WBC Auto (Unsp spec) 33.0 % 19-41 [facility] BUN/creatinine ratioOrdered By: Travon Branham on 03-09-2025 Urea nitrogen/Creatinine [Mass ratio] 8.7 mg/mg Low 10-20 [facility] Basophil percentageOrdered B y: Travon Branham on 03-09-2025 Basophils/100 WBC (Bld) 2.3 % High 0-1 [facility] Bilirubin, totalOrdered By: Travon Branham on 03-09-2025 Bilirubin [Mass/Vol] 0.76 mg/dL 0.00-1.30 [facility] CBC W/Diff, Automatedon 02-13 Absolute Lymph 2.15 X10 3/uL Normal 0.83-4.51 [facility] Comment on above: Performed By: #### L 501.9520, L100.0100, L500.4050, L506.1001 ####[facility] [address] [place], [address] Absolute Neut 3.0 X10 3/uL Normal 2.0-7.7 [facility] Comment on above: Performed By: #### L 501.9520, L100.0100, L500.4050, L506.1001 ####[facility] [address] [place], [address] Basophils/100 WBC (Bld) 2.3 % High 0-1 [facility] Comment on above: Performed By: #### L 501.9520, L100.0100, L500.4050, L506.1001 ####[facility] [address] [place], [address] Eosinophils/100 WBC (Bld) 11.1 % High 0-5 [facility] Comment on above: Performed By: #### L 501.9520, L100.0100, L500.4050, L506.1001 ####[facility] [address] [place], [address] Erythrocyte distribution width (RBC) [Ratio] 12.5 % Normal 11.6-14.6 [facility] Comment on above: Performed By: #### L 501.9520, L100.0100, L500.4050, L506.1001 ####[facility] [address] [place], [address] Hematocrit (Bld) [Volume fraction] 42.5 % Normal 37-47 [facility] Comment on above: Performed By: #### L 501.9520, L100.0100, L500.4050, L506.1001 ####[facility] [address] [place], [address] Hemoglobin (Bld) [Mass/Vol] 14.8 g/dL Normal 12.0-15.0 [facility] Comment on above: Performed By: #### L 501.9520, L100.0100, L500.4050, L506.1001 ####[facility] [address] [place], [address] IG% 0.200 Normal 0.0-0.9 [facility] Comment on above: Result Comment: IG% - Immature Granulocytes (promyelocytes, myelocytes and metamyelocytes) > 1% indicates that a LEFT SHIFT is Present. Performed By: #### L 501.9520, L100.0100, L500.4050, L506.1001 ####[facility] [address] [place], [address] Lymphocytes/100 WBC (Bld) 33.0 % Normal 19-41 [facility] Comment on above: Performed By: #### L 501.9520, L100.0100, L500.4050, L506.1001 ####[facility] [address] [place], [address] MCH (RBC) [Entitic mass] 31.5 pg Normal 27.0-32.0 [facility] Comment on above: Performed By: #### L 501.9520, L100.0100, L500.4050, L506.1001 ####[facility] [address] [place], [address] MCHC (RBC) [Mass/Vol] 34.8 g/dL Normal 32-36 [facility] Comment on above: Performed By: #### L 501.9520, L100.0100, L500.4050, L506.1001 ####[facility] [address] [place], [address] MCV (RBC) [Entitic vol] 90.4 fL Normal 81-99 [facility] Comment on above: Performed By: #### L 501.9520, L100.0100, L500.4050, L506.1001 ####[facility] [address] [place], [address] Monocytes/100 WBC (Bld) 6.9 % Normal 0-10 [facility] Comment on above: Performed By: #### L 501.9520, L100.0100, L500.4050, L506.1001 ####[facility] [address] [place], [address] Neutrophils/100 WBC (Bld) 46.5 % Low 47-70 [facility] Comment on above: Performed By: #### L 501.9520, L100.0100, L500.4050, L506.1001 ####[facility] [address] [place], [address] Nucleated RBC (Bld) [#/Vol] 0 10*3/uL Normal 0-5 [facility] Comment on above: Performed By: #### L 501.9520, L100.0100, L500.4050, L506.1001 ####[facility] [address] [place], [address] Platelet mean volume (Bld) [Entitic vol] 9.8 fL Normal 6.2-12.0 [facility] Comment on above: Performed By: #### L 501.9520, L100.0100, L500.4050, L506.1001 ####[facility] [address] [place], [address] Platelets (Bld) [#/Vol] 220 10*3/uL Normal 150-450 [facility] Comment on above: Performed By: #### L 501.9520, L100.0100, L500.4050, L506.1001 ####[facility] [address] [place], [address] RBC (Bld) [#/Vol] 4.70 10*6/uL Normal 4.2-5.4 [facility] Comment on above: Performed By: #### L 501.9520, L100.0100, L500.4050, L506.1001 ####[facility] [address] [place], [address] RDW SD 40.9 fl Normal 35.1-43.9 [facility] Comment on above: Performed By: #### L 501.9520, L100.0100, L500.4050, L506.1001 ####[facility] [address] [place], [address] WBC (Bld) [#/Vol] 6.5 10*3/uL Normal 4.4-11.0 [facility] Comment on above: Performed By: #### L 501.9520, L100.0100, L500.4050, L506.1001 ####[facility] [address] [place], [address] Carbon dioxide, total [Moles /volume] in Central venous bloodOrdered By: Travon Branham on 03-09-2025 CO2 [Moles/Vol] 21.8 mmol/L 21.0-32.0 [facility] Chloride assayOrdered By: Bill Branham on 03-09-2025 Chloride [Moles/Vol] 107 mmol/L 98-108 [facility] Comprehensive Metabolic Prof ilon 03-09-2025 Albumin [Mass/Vol] 4.8 g/dL Normal 3.5-5.0 [facility] Comment on above: Performed By: #### L 501.9520, L100.0100, L500.4050, L506.1001 ####[facility] [address] [place], [address] Albumin/Globulin [Mass ratio] 1.8 {ratio} Normal 0.9-2.4 [facility] Comment on above: Performed By: #### L 501.9520, L100.0100, L500.4050, L506.1001 ####[facility] [address] [place], [address] ALK PHOS 48 U/L Normal 35-104 [facility] Comment on above: Performed By: #### L 501.9520, L100.0100, L500.4050, L506.1001 ####[facility] [address] [place], [address] ALT [Catalytic activity/Vol] 11 U/L Normal <=34 [facility] Comment on above: Performed By: #### L 501.9520, L100.0100, L500.4050, L506.1001 ####[facility] [address] [place], [address] AST [Catalytic activity/Vol] 20 U/L Normal <=31 [facility] Comment on above: Performed By: #### L 501.9520, L100.0100, L500.4050, L506.1001 ####[facility] [address] [place], [address] Bilirubin [Mass/Vol] 0.76 mg/dL Normal 0.00-1.30 [facility] Comment on above: Performed By: #### L 501.9520, L100.0100, L500.4050, L506.1001 ####[facility] [address] [place], [address] BUN/CRE 8.7 RATIO Low 10-20 [facility] Comment on above: Performed By: #### L 501.9520, L100.0100, L500.4050, L506.1001 ####[facility] [address] [place], [address] Calcium [Mass/Vol] 9.9 mg/dL Normal 7.6-11.0 [facility] Comment on above: Performed By: #### L 501.9520, L100.0100, L500.4050, L506.1001 ####[facility] [address] [place], [address] Chloride [Moles/Vol] 107 mmol/L Normal 98-108 [facility] Comment on above: Performed By: #### L 501.9520, L100.0100, L500.4050, L506.1001 ####[facility] [address] [place], [address] CO2 [Moles/Vol] 21.8 mmol/L Normal 21.0-32.0 [facility] Comment on above: Performed By: #### L 501.9520, L100.0100, L500.4050, L506.1001 ####[facility] [address] [place], [address] Creatinine [Mass/Vol] 0.87 mg/dL Normal 0.70-1.20 [facility] Comment on above: Performed By: #### L 501.9520, L100.0100, L500.4050, L506.1001 ####[facility] [address] [place], [address] GAP 13 Normal 5-15 [facility] Comment on above: Performed By: #### L 501.9520, L100.0100, L500.4050, L506.1001 ####[facility] [address] [place], [address] GFR/1.73 sq M.predicted among non-blacks MDRD (S/P/Bld) [Vol rate/Area] 77 mL/min/{1.73_m2} Normal >60 [facility] Comment on above: Result Comment: mL/m in/1.73m2 CKD-EPI Creatinine Equation (2020) Performed By: #### L 501.9520, L100.0100, L500.4050, L506.1001 ####[facility] [address] [place], [address] Globulin (S) [Mass/Vol] 2.7 g/dL Normal 2.2-4.2 [facility] Comment on above: Performed By: #### L 501.9520, L100.0100, L500.4050, L506.1001 ####[facility] [address] [place], [address] Glucose [Mass/Vol] 88 mg/dL Normal 70-99 [facility] Comment on above: Performed By: #### L 501.9520, L100.0100, L500.4050, L506.1001 ####[facility] [address] [place], [address] Potassium [Moles/Vol] 4.0 mmol/L Normal 3.3-5.1 [facility] Comment on above: Performed By: #### L 501.9520, L100.0100, L500.4050, L506.1001 ####[facility] [address] [place], [address] Sodium [Moles/Vol] 142 mmol/L Normal 133-145 [facility] Comment on above: Performed By: #### L 501.9520, L100.0100, L500.4050, L506.1001 ####[facility] [address] [place], [address] T PROT 7.5 g/dL Normal 5.9-8.4 [facility] Comment on above: Performed By: #### L 501.9520, L100.0100, L500.4050, L506.1001 ####[facility] [address] [place], [address] Urea nitrogen [Mass/Vol] 8 mg/dL Normal 4-19 [facility] Comment on above: Performed By: #### L 501.9520, L100.0100, L500.4050, L506.1001 ####[facility] [address] [place], [address] Eosinophil percentageOrdered By: Travon Branham on 03-09-2025 Eosinophils/100 WBC (Bld) 11.1 % High 0-5 [facility] Erythrocyte distribution wid th ratioOrdered By: Travon Branham on 03-09-2025 Erythrocyte distribution width (RBC) [Ratio] 12.5 % 11.6-14.6 [facility] Erythrocyte distribution wid th standard deviationOrdered By: Travon Branham on 03-09-2025 Erythrocyte distribution width (RBC) [Ratio] 40.9 fl 35.1-43.9 [facility] Glomerular filtration rate ( GFR) estimation/1.73 sq m using serum, plasma, or whole bOrdered By: Travon Branham on 03-09-2025 GFR/1.73 sq M.predicted among non-blacks MDRD (S/P/Bld) [Vol rate/Area] 77 mL/min/{1.73_m2} >60 [facility] Comment on above: mL/min/1.73m2 CKD-EP I Creatinine Equation (2020) Hematocrit Auto (Bld) [Volum e fraction]Ordered By: Travon Branham on 03-09-2025 Hematocrit (Bld) [Volume fraction] 42.5 % 37-47 [facility] Hemoglobin measurementOrdere d By: Travon Branham on 03-09-2025 Hemoglobin (Bld) [Mass/Vol] 14.8 g/dL 12.0-15.0 [facility] Immature granulocytes/100 WB C Auto (Bld)Ordered By: Travon Branham on 03-09-2025 Immature granulocytes/100 WBC (Bld) 0.200 % 0.0-0.9 [facility] Comment on above: IG% - Immature Granu locytes (promyelocytes, myelocytes and metamyelocytes) > 1% indicates that a LEFT SHIFT is Present. Laboratory - Chemistry and C hemistry - challengeOrdered By: Travon Branham on 03-09-2025 AST [Catalytic activity/Vol] 20 U/L <32 [facility] MCV (mean corpuscular volume ) determinationOrdered By: Travon Branham 03-09-2025 MCV (RBC) [Entitic vol] 90.4 fL 81-99 [facility] Mean corpuscular hemoglobin (MCH) determinationOrdered By: Travon Branham 03-09-2025 MCH (RBC) [Entitic mass] 31.5 pg 27.0-32.0 [facility] Mean corpuscular hemoglobin concentration (MCHC) determinationOrdered By: Travon Branham 03-09-2025 MCHC (RBC) [Mass/Vol] 34.8 g/dL 32-36 [facility] Mean platelet volume determi nationOrdered By: Travon Branham 03-09-2025 Platelet mean volume (Bld) [Entitic vol] 9.8 fL 6.2-12.0 [facility] Monocyte percentageOrdered B y: Travon Branham on 03-09-2025 Monocytes/100 WBC (Bld) 6.9 % 0-10 [facility] Neutrophil percentageOrdered By: Travon Branham on 03-09-2025 Neutrophils/100 WBC (Bld) 46.5 % Low 47-70 [facility] Nucleated red blood cell per centageOrdered By: Travon Branham 03-09-2025 Nucleated RBC/100 WBC (Bld) [Ratio] 0 % 0-5 [facility] Platelet countOrdered By: Bill Branham on 03-09-2025 Platelets (Bld) [#/Vol] 220 10*3/uL 150-450 [facility] Potassium measurement (mass/ volume)Ordered By: Travon Branham on 03-09-2025 Potassium (Unsp spec) [Mass/Vol] 4.0 mmol/L 3.3-5.1 [facility] RBC Auto (Bld) [#/Vol]Ordere d By: Travon Branham on 03-09-2025 RBC (Bld) [#/Vol] 4.70 10*6/uL 4.2-5.4 [facility] Serum creatinine measurement (mass/volume)Ordered By: Travon Branham on 03-09-2025 Creatinine [Mass/Vol] 0.87 mg/dL 0.70-1.20 [facility] Serum globulin measurementOr dered By: Travon Branham on 03-09-2025 Globulin (S) [Mass/Vol] 2.7 g/dL 2.2-4.2 [facility] Serum glucose measurement (m ass/volume)Ordered By: Travon Branham on 03-09-2025 Glucose [Mass/Vol] 88 mg/dL 70-99 [facility] Serum or plasma alanine hogan otransferase (ALT) measurementOrdered By: Travon Branham 03-09-2025 ALT [Catalytic activity/Vol] 11 U/L <35 [facility] Serum or plasma albumin vinicius urement (mass/volume)Ordered By: Travon Branham 03-09-2025 Albumin [Mass/Vol] 4.8 g/dL 3.5-5.0 [facility] Serum or plasma albumin/glob ulin mass ratioOrdered By: Travon Branham 03-09-2025 Albumin/Globulin [Mass ratio] 1.8 {ratio} 0.9-2.4 [facility] Serum or plasma alkaline raulito sphatase measurementOrdered By: Travon Branham 03-09-2025 ALP [Catalytic activity/Vol] 48 U/L 35-104 [facility] Serum or plasma calcium vinicius urement (mass/volume)Ordered By: Travon Branham 03-09-2025 Calcium [Mass/Vol] 9.9 mg/dL 7.6-11.0 [facility] Serum or plasma urea nitroge n measurement (mass/volume)Ordered By: Travon Branham on 03-09-2025 Urea nitrogen [Mass/Vol] 8 mg/dL 4-19 [facility] Sodium levelOrdered By: Travon Branham on 03-09-2025 Sodium [Moles/Vol] 142 mmol/L 133-145 [facility] TSH DL <= 0.005 mIU/L QnOrde red By: Travon Branham on 03-09-2025 TSH Qn 0.272 uIU/mL Low 0.300-4.200 [facility] Thyroid Stim Hormone (TSH)on 03-09-2025 TSH 0.272 uIU/mL Low 0.300-4.200 [facility] Comment on above: Performed By: #### L 501.9520, L100.0100, L500.4050, L506.1001 ####[facility] [address] [place], [place], [id number] Total proteinOrdered By: Travon Branham on 03-09-2025 Protein [Mass/Vol] 7.5 g/dL 5.9-8.4 [facility] Vitamin D,25 Hydroxyon 03-09 Vitamin D 25-OH 41.9 ng/mL Normal 30-100 [facility] Comment on above: Result Comment: Nivia min D Status Deficiency: <20 ng/mL (50nmol/L) Insufficiency: 20-30 ng/mL (50-75 nmol/L) Sufficiency: 30-100 ng/mL (75-250 nmol/L) Toxicity: >100 ng/mL (>250 nmol/L) Performed By: #### L 501.9520, L100.0100, L500.4050, L506.1001 ####[facility] [address] [place], [address] White blood cell (WBC) count Ordered By: Travon Branham on 03-09-2025 WBC (Bld) [#/Vol] 6.5 10*3/uL 4.4-11.0 [facility] L/S Spine Min 4 Viewson 12-13 L/S Spine Min 4 Views [facility] [address] [place] [address] L/S Spine Min 4 Views MR#: [id number] Acct: [id number] Name: FIONA VASQUEZ Rep #: [id number] : 1965 F 59 From: Ratna wray MD PCP: Dr. Travon Branham MD Status: REG CLI Study: L/S Spine Min 4 Views Date of Exam: 12/22/24 Exam# [id number] Ordering Dr: Travon Branham MD PROCEDURE: L/S [...] evidence of pars defects. Spondylosis. Reading Location: [place] [address] CC: Dr. Travon Branham MD Truck Hop: Signed Normal [facility] Abdomen/Pelvis W IV Cont ONL Yon 12-19-2024 Abdomen/Pelvis W IV Cont ONLY [facility] Imaging Services [address] [place], [place] [address] Abdomen/Pelvis W IV Cont ONLY MR#: [id number] Acct: [id number] Name: FIONA VASQUEZ Rep #: [id number] : 1965 F 59 From: Juan J li MD PCP: Dr. Travon Branham MD Status: REG ER Study: Abdomen/Pelvis W IV Cont ONLY Date of Exam: Exam# [id number] Ordering Dr: Freddie Esquivel DO PROCEDURE: ABDOMEN/PELVIS [...] and pelvis. Large colonic stool. [facility] CC: Dr. Travon Branham MD; Dr. Freddie Esquivel DO Truck Hop: Signed Normal [facility] Absolute lymphocyte countOrd ered By: Freddie Esquivel on 12-19-2024 Lymphocytes Auto (Unsp spec) [#/Vol] 1.49 10*3/uL 0.83-4.51 [facility] Absolute neutrophil countOrd ered By: Freddie Esquivel on 12-19-2024 Neutrophils (Bld) [#/Vol] 4.4 10*3/uL 2.0-7.7 [facility] Anion gap in Serum or Plasma Ordered By: Freddie Esquivel on 12-19-2024 Anion gap [Moles/Vol] 10 mmol/L 5-15 [facility] Automated lymphocyte count a s percentage of total leukocytesOrdered By: Freddie Esquivel on 12-19-2024 Lymphocytes/100 WBC Auto (Unsp spec) 23.2 % 19-41 [facility] BUN/creatinine ratioOrdered By: Freddie Esquivel on 12-19-2024 Urea nitrogen/Creatinine [Mass ratio] 14.2 mg/mg 10-20 [facility] Basophil percentageOrdered B y: Freddie Esquivel on 12-19-2024 Basophils/100 WBC (Bld) 0.6 % 0-1 [facility] Bilirubin Test strip Ql (U)O rdered By: Freddie Esquivel on 12-19-2024 Bilirubin Ql (U) Negative Negative [facility] Bilirubin, totalOrdered By: Freddie Esquivel on 12-19-2024 Bilirubin [Mass/Vol] 0.55 mg/dL 0.00-1.30 [facility] CBC W/Diff, Automatedon - Absolute Lymph 1.49 X10 3/uL Normal 0.83-4.51 [facility] Comment on above: Performed By: #### L 501.2450, L500.4050, L100.0100 ####[facility] [address] [place], [address] Absolute Neut 4.4 X10 3/uL Normal 2.0-7.7 [facility] Comment on above: Performed By: #### L 501.2450, L500.4050, L100.0100 ####[facility] [address] [place], [address] Basophils/100 WBC (Bld) 0.6 % Normal 0-1 [facility] Comment on above: Performed By: #### L 501.2450, L500.4050, L100.0100 ####[facility] [address] [place], [address] Eosinophils/100 WBC (Bld) 0.8 % Normal 0-5 [facility] Comment on above: Performed By: #### L 501.2450, L500.4050, L100.0100 ####[facility] [address] [place], [address] Erythrocyte distribution width (RBC) [Ratio] 13.0 % Normal 11.6-14.6 [facility] Comment on above: Performed By: #### L 501.2450, L500.4050, L100.0100 ####[facility] [address] [place], [address] Hematocrit (Bld) [Volume fraction] 38.4 % Normal 37-47 [facility] Comment on above: Performed By: #### L 501.2450, L500.4050, L100.0100 ####[facility] [address] [place], [address] Hemoglobin (Bld) [Mass/Vol] 13.1 g/dL Normal 12.0-15.0 [facility] Comment on above: Performed By: #### L 501.2450, L500.4050, L100.0100 ####[facility] [address] [place], [address] IG% 0.300 Normal 0.0-0.9 [facility] Comment on above: Result Comment: IG% - Immature Granulocytes (promyelocytes, myelocytes and metamyelocytes) > 1% indicates that a LEFT SHIFT is Present. Performed By: #### L 501.2450, L500.4050, L100.0100 ####[facility] [address] [place], [address] Lymphocytes/100 WBC (Bld) 23.2 % Normal 19-41 [facility] Comment on above: Performed By: #### L 501.2450, L500.4050, L100.0100 ####[facility] [address] [place], [address] MCH (RBC) [Entitic mass] 30.5 pg Normal 27.0-32.0 [facility] Comment on above: Performed By: #### L 501.2450, L500.4050, L100.0100 ####[facility] [address] [place], [address] MCHC (RBC) [Mass/Vol] 34.1 g/dL Normal 32-36 [facility] Comment on above: Performed By: #### L 501.2450, L500.4050, L100.0100 ####[facility] [address] [place], [address] MCV (RBC) [Entitic vol] 89.3 fL Normal 81-99 [facility] Comment on above: Performed By: #### L 501.2450, L500.4050, L100.0100 ####[facility] [address] [place], [address] Monocytes/100 WBC (Bld) 5.9 % Normal 0-10 [facility] Comment on above: Performed By: #### L 501.2450, L500.4050, L100.0100 ####[facility] [address] [place], [address] Neutrophils/100 WBC (Bld) 69.2 % Normal 47-70 [facility] Comment on above: Performed By: #### L 501.2450, L500.4050, L100.0100 ####[facility] [address] [place], [address] Nucleated RBC (Bld) [#/Vol] 0 10*3/uL Normal 0-5 [facility] Comment on above: Performed By: #### L 501.2450, L500.4050, L100.0100 ####[facility] [address] [place], [address] Platelet mean volume (Bld) [Entitic vol] 9.6 fL Normal 6.2-12.0 [facility] Comment on above: Performed By: #### L 501.2450, L500.4050, L100.0100 ####[facility] [address] [place], [address] Platelets (Bld) [#/Vol] 173 10*3/uL Normal 150-450 [facility] Comment on above: Performed By: #### L 501.2450, L500.4050, L100.0100 ####[facility] [address] [place], [address] RBC (Bld) [#/Vol] 4.30 10*6/uL Normal 4.2-5.4 [facility] Comment on above: Performed By: #### L 501.2450, L500.4050, L100.0100 ####[facility] [address] [place], [address] RDW SD 42.7 fl Normal 35.1-43.9 [facility] Comment on above: Performed By: #### L 501.2450, L500.4050, L100.0100 ####[facility] [address] [place], [address] WBC (Bld) [#/Vol] 6.4 10*3/uL Normal 4.4-11.0 [facility] Comment on above: Performed By: #### L 501.2450, L500.4050, L100.0100 ####[facility] [address] [place], [address] Carbon dioxide, total [Moles /volume] in Central venous bloodOrdered By: Freddie Esquivel on 12-19-2024 CO2 [Moles/Vol] 21.6 mmol/L 21.0-32.0 [facility] Chloride assayOrdered By: Bienvenido Esquivel on 12-19-2024 Chloride [Moles/Vol] 107 mmol/L 98-108 [facility] Comprehensive Metabolic Prof ilon 12-19-2024 Albumin [Mass/Vol] 4.3 g/dL Normal 3.5-5.0 [facility] Comment on above: Performed By: #### L 501.2450, L500.4050, L100.0100 ####[facility] [address] [place], [address] Albumin/Globulin [Mass ratio] 1.8 {ratio} Normal 0.9-2.4 [facility] Comment on above: Performed By: #### L 501.2450, L500.4050, L100.0100 ####[facility] [address] [place], [address] ALK PHOS 49 U/L Normal 35-104 [facility] Comment on above: Performed By: #### L 501.2450, L500.4050, L100.0100 ####[facility] [address] [place], [address] ALT [Catalytic activity/Vol] 8 U/L Normal <=34 [facility] Comment on above: Performed By: #### L 501.2450, L500.4050, L100.0100 ####[facility] [address] [place], [address] AST [Catalytic activity/Vol] 15 U/L Normal <=31 [facility] Comment on above: Performed By: #### L 501.2450, L500.4050, L100.0100 ####[facility] [address] [place], [address] Bilirubin [Mass/Vol] 0.55 mg/dL Normal 0.00-1.30 [facility] Comment on above: Performed By: #### L 501.2450, L500.4050, L100.0100 ####[facility] [address] [place], [address] BUN/CRE 14.2 RATIO Normal 10-20 [facility] Comment on above: Performed By: #### L 501.2450, L500.4050, L100.0100 ####[facility] [address] [place], [address] Calcium [Mass/Vol] 8.9 mg/dL Normal 7.6-11.0 [facility] Comment on above: Performed By: #### L 501.2450, L500.4050, L100.0100 ####[facility] [address] [place], [address] Chloride [Moles/Vol] 107 mmol/L Normal 98-108 [facility] Comment on above: Performed By: #### L 501.2450, L500.4050, L100.0100 ####[facility] [address] [place], [address] CO2 [Moles/Vol] 21.6 mmol/L Normal 21.0-32.0 [facility] Comment on above: Performed By: #### L 501.2450, L500.4050, L100.0100 ####[facility] [address] [place], [address] Creatinine [Mass/Vol] 0.78 mg/dL Normal 0.70-1.20 [facility] Comment on above: Performed By: #### L 501.2450, L500.4050, L100.0100 ####[facility] [address] [place], [address] ECRCL 83.43 ml/min Normal 50-250 [facility] Comment on above: Performed By: #### L 501.2450, L500.4050, L100.0100 ####[facility] [address] [place], [address] GAP 10 Normal 5-15 [facility] Comment on above: Performed By: #### L 501.2450, L500.4050, L100.0100 ####[facility] [address] [place], [address] GFR/1.73 sq M.predicted among non-blacks MDRD (S/P/Bld) [Vol rate/Area] 88 mL/min/{1.73_m2} Normal >60 [facility] Comment on above: Result Comment: mL/m in/1.73m2 CKD-EPI Creatinine Equation (2020) Performed By: #### L 501.2450, L500.4050, L100.0100 ####[facility] [address] [place], [address] Globulin (S) [Mass/Vol] 2.4 g/dL Normal 2.2-4.2 [facility] Comment on above: Performed By: #### L 501.2450, L500.4050, L100.0100 ####[facility] [address] [place], [address] Glucose [Mass/Vol] 95 mg/dL Normal 70-99 [facility] Comment on above: Performed By: #### L 501.2450, L500.4050, L100.0100 ####[facility] [address] [place], [address] Potassium [Moles/Vol] 3.9 mmol/L Normal 3.3-5.1 [facility] Comment on above: Performed By: #### L 501.2450, L500.4050, L100.0100 ####[facility] [address] [place], [address] Sodium [Moles/Vol] 139 mmol/L Normal 133-145 [facility] Comment on above: Performed By: #### L 501.2450, L500.4050, L100.0100 ####[facility] [address] [place], [address] T PROT 6.7 g/dL Normal 5.9-8.4 [facility] Comment on above: Performed By: #### L 501.2450, L500.4050, L100.0100 ####[facility] [address] [place], [address] Urea nitrogen [Mass/Vol] 11 mg/dL Normal 4-19 [facility] Comment on above: Performed By: #### L 501.2450, L500.4050, L100.0100 ####[facility] [address] [place], [address] Emergency Department Summary on 12-19-2024 Emergency Department Summary [facility] Medical Records Department [address] [place] [address] Emergency Department Summary 12/19/24 MR#: [id number] Acct: [id number] Name: FIONA VASQUEZ Rep #: [id number] : 1965 59 From: Freddie Esquivel DO [...] abdominal surgeries including 3 C-sections and abdominoplasty. [facility] Medical History Hyperlipidemia Atrial fibrillation Fatigue Familial hypercholesterolemia due to heterozygous low density lipoprotein (LDL) receptor mutation Osteoarthritis Tachycardia Vitamin D deficiency Atrophic vaginitis Morbid obesity Hypothyroid Syncope Home Medications ???Medication ???Instructions ???Recorded ???Last Taken ???Type thyroid (pork) 60 mg tablet 60 mg PO DAILY THYROID 07/24/23 Un known History (Somis Thyroid) cholecalciferol (vitamin D3) 25 25 mcg [...] follow commands knew that she was at [facility] the year is 2024 Skin: Warm, dry, tact no rashes lesions noted Const Vital Signs: 12/19/24 10:08 12/19/24 11:09 12/19/24 12:07 Temperature 97.9 F 98 F (more content not included)... Normal [facility] Eosinophil percentageOrdered By: Freddie Esquivel on 12-19-2024 Eosinophils/100 WBC (Bld) 0.8 % 0-5 [facility] Erythrocyte distribution wid th ratioOrdered By: Freddie Esquivel on 12-19-2024 Erythrocyte distribution width (RBC) [Ratio] 13.0 % 11.6-14.6 [facility] Erythrocyte distribution wid th standard deviationOrdered By: Freddie Esquivel on 12-19-2024 Erythrocyte distribution width (RBC) [Ratio] 42.7 fl 35.1-43.9 [facility] Glomerular filtration rate ( GFR) estimation/1.73 sq m using serum, plasma, or whole bOrdered By: Freddie Esquivel on 12-19-2024 GFR/1.73 sq M.predicted among non-blacks MDRD (S/P/Bld) [Vol rate/Area] 88 mL/min/{1.73_m2} >60 [facility] Comment on above: mL/min/1.73m2 CKD-EP I Creatinine Equation (2020) Hematocrit Auto (Bld) [Volum e fraction]Ordered By: Freddie Esquivel on 12-19-2024 Hematocrit (Bld) [Volume fraction] 38.4 % 37-47 [facility] Hemoglobin measurementOrdere d By: Freddie Esquivel on 12-19-2024 Hemoglobin (Bld) [Mass/Vol] 13.1 g/dL 12.0-15.0 [facility] Immature granulocytes/100 WB C Auto (Bld)Ordered By: Freddie Esquivel on 12-19-2024 Immature granulocytes/100 WBC (Bld) 0.300 % 0.0-0.9 [facility] Comment on above: IG% - Immature Granu locytes (promyelocytes, myelocytes and metamyelocytes) > 1% indicates that a LEFT SHIFT is Present. Ketones Test strip Ql (U)Ord ered By: Freddie Esquivel on 12-19-2024 Ketones Ql (U) Negative Negative [facility] Laboratory - Chemistry and C hemistry - challengeOrdered By: Freddie Esquivel on 12-19-2024 AST [Catalytic activity/Vol] 15 U/L <32 [facility] Lipaseon 12-19-2024 Lipase [Catalytic activity/Vol] 50 U/L Normal 13-75 [facility] Comment on above: Result Comment: Plea se note: LIPASE revised reference range effective 22. New Lipase methodology. Expected to produce lower values than the previous assay method. NEW Reference Range: 13 - 75 U/L Performed By: #### L 501.2450, L500.4050, L100.0100 ####[facility] [address] [place], [place], [id number] Lipase measurementOrdered By : Freddie Esquivel on 12-19-2024 Lipase [Catalytic activity/Vol] 50 U/L 13-75 [facility] Comment on above: Please note:LIPASE r evised reference range effective 22. New Lipase methodology. Expected to produce lower values than the previous assay method. NEW Reference Range: 13 - 75 U/L MCV (mean corpuscular volume ) determinationOrdered By: Freddie Esquivel on 12-19-2024 MCV (RBC) [Entitic vol] 89.3 fL 81-99 [facility] Mean corpuscular hemoglobin (MCH) determinationOrdered By: Freddie Esquivel on 12-19-2024 MCH (RBC) [Entitic mass] 30.5 pg 27.0-32.0 [facility] Mean corpuscular hemoglobin concentration (MCHC) determinationOrdered By: Freddie Esquivel on 12-19-2024 MCHC (RBC) [Mass/Vol] 34.1 g/dL 32-36 [facility] Mean platelet volume determi nationOrdered By: Freddie Esquivel on 12-19-2024 Platelet mean volume (Bld) [Entitic vol] 9.6 fL 6.2-12.0 [facility] Microscopic analysis of urin e for red blood cells (RBC)Ordered By: Freddie Esquivel on 12-19-2024 Microscopic analysis of urine for red blood cells (RBC) 0 SEEN /hpf 0-5 [facility] Monocyte percentageOrdered B y: Freddie Esquivel on 12-19-2024 Monocytes/100 WBC (Bld) 5.9 % 0-10 [facility] Mucus LM Ql (Urine sed)Order ed By: Freddie Esquivel on 12-19-2024 Mucus Ql (Urine sed) 0 SEEN /hpf [facility] Neutrophil percentageOrdered By: Freddie Esquivel on 12-19-2024 Neutrophils/100 WBC (Bld) 69.2 % 47-70 [facility] Nitrite Test strip Ql (U)Ord ered By: Freddie Esquivel on 12-19-2024 Nitrite Ql (U) Negative Negative [facility] Nucleated red blood cell per centageOrdered By: Freddie Esquivel on 12-19-2024 Nucleated RBC/100 WBC (Bld) [Ratio] 0 % 0-5 [facility] Platelet countOrdered By: Bienvenido Esquivel on 12-19-2024 Platelets (Bld) [#/Vol] 173 10*3/uL 150-450 [facility] Potassium measurement (mass/ volume)Ordered By: Freddie Esquivel on 06-07-2025 Potassium (Unsp spec) [Mass/Vol] 3.9 mmol/L 3.3-5.1 [facility] Protein Test strip Ql (U)Ord ered By: Freddie Esquivel on 12-19-2024 Protein Ql (U) Negative Negative [facility] RBC Auto (Bld) [#/Vol]Ordere d By: Freddie Esquivel on 12-19-2024 RBC (Bld) [#/Vol] 4.30 10*6/uL 4.2-5.4 [facility] Serum creatinine measurement (mass/volume)Ordered By: Freddie Esquivel on 12-19-2024 Creatinine [Mass/Vol] 0.78 mg/dL 0.70-1.20 [facility] Serum globulin measurementOr dered By: Freddie Esquivel on 12-19-2024 Globulin (S) [Mass/Vol] 2.4 g/dL 2.2-4.2 [facility] Serum glucose measurement (m ass/volume)Ordered By: Freddie Esquivel on 12-19-2024 Glucose [Mass/Vol] 95 mg/dL 70-99 [facility] Serum or plasma alanine hogan otransferase (ALT) measurementOrdered By: Freddie Esquivel on 12-19-2024 ALT [Catalytic activity/Vol] 8 U/L <35 [facility] Serum or plasma albumin vinicius urement (mass/volume)Ordered By: Freddie Esquivel on 12-19-2024 Albumin [Mass/Vol] 4.3 g/dL 3.5-5.0 [facility] Serum or plasma albumin/glob ulin mass ratioOrdered By: Freddie Esquivel on 12-19-2024 Albumin/Globulin [Mass ratio] 1.8 {ratio} 0.9-2.4 [facility] Serum or plasma alkaline raulito sphatase measurementOrdered By: Freddie Esquivel on 12-19-2024 ALP [Catalytic activity/Vol] 49 U/L 35-104 [facility] Serum or plasma calcium vinicius urement (mass/volume)Ordered By: Freddie Esquivel on 12-19-2024 Calcium [Mass/Vol] 8.9 mg/dL 7.6-11.0 [facility] Serum or plasma urea nitroge n measurement (mass/volume)Ordered By: Freddie Esquivel on 12-19-2024 Urea nitrogen [Mass/Vol] 11 mg/dL 4-19 [facility] Sodium levelOrdered By: Nii Esquivel on 12-19-2024 Sodium [Moles/Vol] 139 mmol/L 133-145 [facility] Squamous epithelial cells de tection in urine sediment by light microscopyOrdered By: Freddie Esquivel on 12-19-2024 Epithelial cells.squamous LM Ql (Urine sed) 10-25 SEEN /hpf - [facility] Total proteinOrdered By: John Esquivel on 12-19-2024 Protein [Mass/Vol] 6.7 g/dL 5.9-8.4 [facility] Urinalysis, Completeon 12-19 EPI,SQUAMOUS 10-25 SEEN Normal 11-21 [facility] Comment on above: Order Comment: CLEAN CATCH Performed By: #### L 400.0001 ####[facility] [address] [place], [address] BACTERIA 0 SEEN Normal None Seen [facility] Comment on above: Order Comment: CLEAN CATCH Performed By: #### L 400.0001 ####[facility] [address] [place], [address] Mucus Ql (Urine sed) 0 SEEN Normal [facility] Comment on above: Order Comment: CLEAN CATCH Performed By: #### L 400.0001 ####[facility] [address] [place], [address] RBC 0 SEEN Normal 0-5 [facility] Comment on above: Order Comment: CLEAN CATCH Performed By: #### L 400.0001 ####[facility] [address] [place], [address] WBC 0 SEEN Normal 0-5 [facility] Comment on above: Order Comment: CLEAN CATCH Performed By: #### L 400.0001 ####[facility] [address] [place], [address] Urine clarityOrdered By: John Esquivel on 12-19-2024 Clarity (U) Sl. Cloudy Clear [facility] Urine color determinationOrd ered By: Freddie Esquivel on 12-19-2024 Color (U) Yellow Yellow [facility] Urine glucose detectionOrder ed By: Freddie Esquivel on 12-19-2024 Glucose Ql (U) Normal mg/dl Normal [facility] Urine leukocyte esterase det ection by dipstickOrdered By: Freddie Esquivel on 12-19-2024 Leukocyte esterase Test strip Ql (U) Negative Negative [facility] Urine pHOrdered By: Freddie castellon on 12-19-2024 pH (U) 6.5 [pH] 5.0 - 8.0 [facility] Urine sediment bacteria coun t by microscopy (number/high power field)Ordered By: Freddie Esquivel on 12-19-2024 Bacteria LM.HPF (Urine sed) [#/Area] 0 /[HPF] None Seen [facility] Urine specific gravity measu rementOrdered By: Freddie Esquivel on 12-19-2024 Specific gravity (U) [Rel density] 1.010 1.002-1.030 [facility] Urine urobilinogen measureme ntOrdered By: Freddie Esquivel on 12-19-2024 Urobilinogen Ql (U) Normal mg/dl Normal [facility] White blood cell (WBC) count Ordered By: Freddie Esquivel on 12-19-2024 WBC (Bld) [#/Vol] 6.4 10*3/uL 4.4-11.0 [facility] White blood cell countOrdere d By: Freddie Esquivel on 12-19-2024 White blood cell count 0 SEEN /hpf 0-5 [facility] L509.6001on 12-10-2024 CORTISOL 0.55 ug/dL Low 6.02-18.40 [facility] Comment on above: Performed By: #### L 509.6001 ####[facility] [address] [place], [address] Serum or plasma cortisol pearl surement (mass/volume)Ordered By: Travon Branham on 12-10-2024 Cortisol [Mass/Vol] 0.55 ug/dL Low 6.02-18.40 [facility] Cardiology Visit Reporton Cardiology Visit Report [facility] [address] [place] [address] OFFICE VISIT Date of Service: 10/29/24 MR#: [id number] Acct: [id number] Name: FIONA VASQUEZ Rep #: [id number] : 1965 Provider: LATASHA Anderson Age/Sex: 59/F Location: 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 Normal [facility] Breast imaging reportOrdered By: Naida Oseguera on 10-08-2024 Study report [facility] Imaging Services [address] [place], [place] [address] SCRN MAMM (CAD)W/MINH BILAT MR#: [id number] Acct: [id number] Name: FIONA VASQUEZ Rep #: [id number] : 1965 F 59 From: Sukh Oseguera DO PCP: Dr. Travon Branham MD Status: JOSE ALBERTO TURCIOS Study:SCRN MAMM (CAD)W/MINH BILAT Date of Exa m: 10/07/24 Exam# [id number] Ordering Dr: Travon Branham MD EXAM: SCRN [...] be mailed to the patient. Reading Location: [id number] CC: Dr. Travon Branham MD ~ Truck Hop: Signed [facility] SCRN MAMM (CAD)W/MINH BILATo n 10-07-2024 SCRN MAMM (CAD)W/MINH BILAT [facility] Imaging Services [address], [place] [address] SCRN MAMM (CAD)W/MINH BILAT MR#: [id number] Acct: [id number] Name: FIONA VASQUEZ Rep #: [id number] : 1965 F 59 From: Naida Damon PCP: Dr. Travon Branham MD Status: REG CLI Study: SCRN MAMM (CAD)W/MINH BILAT Date of Exam: 09/13 01/06 Exam# [id number] Ordering Dr: Travon Branham MD EXAM: SCRN [...] be mailed to the patient. Reading Location: [id number] CC: Dr. Travon Branham MD Truck Hop: Signed Normal [facility] Absolute lymphocyte countOrd ered By: Travon Branham on 09-08-2024 Lymphocytes Auto (Unsp spec) [#/Vol] 2.04 10*3/uL 0.83-4.51 [facility] Absolute neutrophil countOrd ered By: Travon Branham on 09-08-2024 Neutrophils (Bld) [#/Vol] 2.5 10*3/uL 2.0-7.7 [facility] Automated lymphocyte count a s percentage of total leukocytesOrdered By: Travon Adolfo on 09-08-2024 Lymphocytes/100 WBC Auto (Unsp spec) 39.5 % [facility] BUN/creatinine ratioOrdered By: Travon Branham on 09-08-2024 Urea nitrogen/Creatinine [Mass ratio] 15.9 mg/mg 10- [facility] Basophil percentageOrdered B y: Travon Adolfo on 09-08-2024 Basophils/100 WBC (Bld) 1.0 % 0-1 [facility] Bilirubin, totalOrdered By: Travon Branham on 09-08-2024 Bilirubin [Mass/Vol] 0.57 mg/dL 0.00-1.30 [facility] CBC W/Diff, Automatedon 08-16 Absolute Lymph 2.04 X10 3/uL Normal 0.83-4.51 [facility] Comment on above: Performed By: #### L [id number], [id number], L100.0100 #### [facility] Laboratory [address] [place], [address] Absolute Neut 2.5 X10 3/uL Normal 2.0-7.7 [facility] Comment on above: Performed By: #### L [id number], [id number], L100.0100 #### [facility] [address] [place], [address] Basophils/100 WBC (Bld) 1.0 % Normal 0-1 [facility] Comment on above: Performed By: #### L [id number], [id number], L100.0100 #### [facility] [address] [place], [address] Eosinophils/100 WBC (Bld) 2.3 % Normal 0-5 [facility] Comment on above: Performed By: #### L [id number], [id number], L100.0100 #### [facility] [address] [place], [address] Erythrocyte distribution width (RBC) [Ratio] 13.2 % Normal 11.6-14.6 [facility] Comment on above: Performed By: #### L [id number], [id number], L100.0100 #### [facility] [address] [place], [address] Hematocrit (Bld) [Volume fraction] 41.9 % Normal 37-47 [facility] Comment on above: Performed By: #### L [id number], [id number], L100.0100 #### [facility] [address] [place], [address] Hemoglobin (Bld) [Mass/Vol] 14.0 g/dL Normal 12.0-15.0 [facility] Comment on above: Performed By: #### L [id number], [id number], L100.0100 #### [facility] [address] [place], [address] IG% 0.200 Normal 0.0-0.9 [facility] Comment on above: Result Comment: IG% - Immature Granulocytes (promyelocytes, myelocytes and metamyelocytes) > 1% indicates that a LEFT SHIFT is Present. Performed By: #### L [id number], [id number], L100.0100 #### [facility] [address] [place], [address] Lymphocytes/100 WBC (Bld) 39.5 % Normal 19-41 [facility] Comment on above: Performed By: #### L [id number], [id number], L100.0100 #### [facility] [address] [place], [address] MCH (RBC) [Entitic mass] 29.7 pg Normal 27.0-32.0 [facility] Comment on above: Performed By: #### L [id number], [id number], L100.0100 #### [facility] [address] [place], [address] MCHC (RBC) [Mass/Vol] 33.4 g/dL Normal 32-36 [facility] Comment on above: Performed By: #### L [id number], [id number], L100.0100 #### [facility] [address] [place], [address] MCV (RBC) [Entitic vol] 88.8 fL Normal 81-99 [facility] Comment on above: Performed By: #### L [id number], [id number], L100.0100 #### [facility] [address] [place], [address] Monocytes/100 WBC (Bld) 7.8 % Normal 0-10 [facility] Comment on above: Performed By: #### L 501.9520, [id number], L100.0100 #### [facility] [address] [place], [address] Neutrophils/100 WBC (Bld) 49.2 % Normal 47-70 [facility] Comment on above: Performed By: #### L [id number], [id number], L100.0100 #### [facility] [address] [place], [address] Nucleated RBC (Bld) [#/Vol] 0 10*3/uL Normal 0-5 [facility] Comment on above: Performed By: #### L [id number], [id number], L100.0100 #### [facility] [address] [place], [address] Platelet mean volume (Bld) [Entitic vol] 10.6 fL Normal 6.2-12.0 [facility] Comment on above: Performed By: #### L [id number], [id number], L100.0100 #### [facility] [address] [place], [address] Platelets (Bld) [#/Vol] 201 10*3/uL Normal 150-450 [facility] Comment on above: Performed By: #### L [id number], [id number], L100.0100 #### [facility] [address] [place], [address] RBC (Bld) [#/Vol] 4.72 10*6/uL Normal 4.2-5.4 [facility] Comment on above: Performed By: #### L [id number], [id number], L100.0100 #### [facility] [address] [place], [address] RDW SD 43.0 fl Normal 35.1-43.9 [facility] Comment on above: Performed By: #### L [id number], [id number], L100.0100 #### [facility] [address] [place], [address] WBC (Bld) [#/Vol] 5.2 10*3/uL Normal 4.4-11.0 [facility] Comment on above: Performed By: #### L [id number], [id number], L100.0100 #### [facility] [address] [place], [address] Carbon dioxide measurementOr dered By: Travon Branham on 09-08-2024 CO2 [Moles/Vol] 21.4 mmol/L Low 22.0-29.0 [facility] Chloride measurementOrdered By: Travon Branham on 09-08-2024 Chloride [Moles/Vol] 105 mmol/L 96-108 [facility] Comprehensive Metabolic Prof ilon 09-08-2024 Albumin [Mass/Vol] 4.6 g/dL Normal 3.5-5.0 [facility] Comment on above: Performed By: #### L 501.9520, [id number], L100.0100 #### [facility] [address] [place], [address] Albumin/Globulin [Mass ratio] 1.7 {ratio} Normal 0.9-2.4 [facility] Comment on above: Performed By: #### L [id number], [id number], L100.0100 #### [facility] [address] [place], [address] ALK PHOS 62 U/L Normal 35-104 [facility] Comment on above: Performed By: #### L [id number], [id number], L100.0100 #### [facility] [address] [place], [address] ALT [Catalytic activity/Vol] 13 U/L Normal <=34 [facility] Comment on above: Performed By: #### L [id number], [id number], L100.0100 #### [facility] [address] [place], [address] Anion gap [Moles/Vol] 16 mmol/L High 5-15 [facility] Comment on above: Performed By: #### L 501.9520, [id number], L100.0100 #### [facility] [address] [place], [address] AST [Catalytic activity/Vol] 22 U/L Normal <=31 [facility] Comment on above: Performed By: #### L [id number], [id number], L100.0100 #### [facility] [address] [place], [address] Bilirubin [Mass/Vol] 0.57 mg/dL Normal 0.00-1.30 [facility] Comment on above: Performed By: #### L 501.9520, [id number], L100.0100 #### [facility] [address] [place], [address] BUN/CRE 15.9 RATIO Normal 10-20 [facility] Comment on above: Performed By: #### L [id number], [id number], L100.0100 #### [facility] [address] [place], [address] Calcium [Mass/Vol] 9.5 mg/dL Normal 7.6-11.0 [facility] Comment on above: Performed By: #### L [id number], [id number], L100.0100 #### [facility] [address] [place], [address] Chloride [Moles/Vol] 105 mmol/L Normal 96-108 [facility] Comment on above: Performed By: #### L 501.9520, [id number], L100.0100 #### [facility] [address] [place], [address] CO2 [Moles/Vol] 21.4 mmol/L Low 22.0-29.0 [facility] Comment on above: Performed By: #### L 501.9520, [id number], L100.0100 #### [facility] [address] [place], [address] Creatinine [Mass/Vol] 0.9 mg/dL Normal 0.6-1.0 [facility] Comment on above: Performed By: #### L [id number], [id number], L100.0100 #### [facility] [address] [place], [address] GFR/1.73 sq M.predicted among non-blacks MDRD (S/P/Bld) [Vol rate/Area] 77 mL/min/{1.73_m2} Normal >60 [facility] Comment on above: Result Comment: mL/m in/1.73m2 CKD-EPI Creatinine Equation (2020) Performed By: #### L [id number], [id number], L100.0100 #### [facility] [address] [place], [address] Globulin (S) [Mass/Vol] 2.6 g/dL Normal 2.2-4.2 [facility] Comment on above: Performed By: #### L [id number], [id number], L100.0100 #### [facility] [address] [place], [address] Glucose [Mass/Vol] 82 mg/dL Normal 70-99 [facility] Comment on above: Performed By: #### L 501.9520, [id number], L100.0100 #### [facility] [address] [place], [address] Potassium [Moles/Vol] 4.3 mmol/L Normal 3.3-5.1 [facility] Comment on above: Performed By: #### L 501.9520, L500.4050, L100.0100 #### [facility] [address] [place], [address] Sodium [Moles/Vol] 142 mmol/L Normal 133-145 [facility] Comment on above: Performed By: #### L 501.9520, [id number], L100.0100 #### [facility] [address] [place], [address] T PROT 7.2 g/dL Normal 5.9-8.4 [facility] Comment on above: Performed By: #### L 501.9520, [id number], L100.0100 #### [facility] [address] [place], [address] Urea nitrogen [Mass/Vol] 14 mg/dL Normal 4-19 [facility] Comment on above: Performed By: #### L [id number], [id number], L100.0100 #### [facility] [address] [place], [address] Creatinine [Moles/Vol]Ordere d By: Travon Branham on 09-08-2024 Creatinine [Mass/Vol] 0.9 mg/dL 0.6-1.0 [facility] Eosinophil percentageOrdered By: Travon Branham on 09-08-2024 Eosinophils/100 WBC (Bld) 2.3 % 0-5 [facility] Erythrocyte distribution wid th ratioOrdered By: Travon Branham 09-08-2024 Erythrocyte distribution width (RBC) [Ratio] 13.2 % 11.6-14.6 [facility] Erythrocyte distribution wid th standard deviationOrdered By: Travon Branham 09-08-2024 Erythrocyte distribution width (RBC) [Entitic vol] 43.0 fL 35.1-43.9 [facility] Erythrocyte distribution width (RBC) [Ratio] 43.0 fl 35.1-43.9 [facility] GFR/1.73 sq M.predicted zunilda g non-blacks MDRD (S/P/Bld) [Vol rate/Area]Ordered By: Travon Branham on 09-08-2024 Estimated GFR (MDRD) Non-Af Amer 77 >60 [facility] Comment on above: mL/min/1.73m2 CKD-EP I Creatinine Equation (2020) Glomerular filtration rate ( GFR) estimation/1.73 sq m using serum, plasma, or whole bOrdered By: Travon Branham on 09-08-2024 GFR/1.73 sq M.predicted among non-blacks MDRD (S/P/Bld) [Vol rate/Area] 77 mL/min/{1.73_m2} >60 [facility] Comment on above: mL/min/1.73m2 CKD-EP I Creatinine Equation (2020) Hematocrit Auto (Bld) [Volum e fraction]Ordered By: Travon Branham on 09-08-2024 Hematocrit (Bld) [Volume fraction] 41.9 % 37-47 [facility] Hemoglobin measurementOrdere d By: Travon Branham on 09-08-2024 Hemoglobin (Bld) [Mass/Vol] 14.0 g/dL 12.0-15.0 [facility] Immature granulocytes/100 WB C Auto (Bld)Ordered By: Travon Branhma 09-08-2024 Immature granulocytes/100 WBC (Bld) 0.200 % 0.0-0.9 [facility] Comment on above: IG% - Immature Granu locytes (promyelocytes, myelocytes and metamyelocytes) > 1% indicates that a LEFT SHIFT is Present. Laboratory - Chemistry and C hemistry - challengeOrdered By: Travon Branham on 09-08-2024 AST [Catalytic activity/Vol] 22 U/L <32 [facility] Lymphocytes Auto (Unsp spec) [#/Vol]Ordered By: Travon Branham 09-08-2024 Lymphocytes (Bld) [#/Vol] 2.04 10*3/uL 0.83-4.51 [facility] Lymphocytes/100 WBC Auto (Un sp spec)Ordered By: Travon Branham 09-08-2024 Lymphocytes/100 WBC (Bld) 39.5 % 19-41 [facility] MCV (mean corpuscular volume ) determinationOrdered By: Travon Branham 09-08-2024 MCV (RBC) [Entitic vol] 88.8 fL 81-99 [facility] Mean corpuscular hemoglobin (MCH) determinationOrdered By: Travon Branham 09-08-2024 MCH (RBC) [Entitic mass] 29.7 pg 27.0-32.0 [facility] Mean corpuscular hemoglobin concentration (MCHC) determinationOrdered By: Travon Branham 09-08-2024 MCHC (RBC) [Mass/Vol] 33.4 g/dL 32-36 [facility] Mean platelet volume determi nationOrdered By: Travon Branham on 09-08-2024 Platelet mean volume (Bld) [Entitic vol] 10.6 fL 6.2-12.0 [facility] Monocyte percentageOrdered B y: Travon Branham on 09-08-2024 Monocytes/100 WBC (Bld) 7.8 % 0-10 [facility] Neutrophil percentageOrdered By: Travon Branham on 09-08-2024 Neutrophils/100 WBC (Bld) 49.2 % 47-70 [facility] Nucleated red blood cell per centageOrdered By: Travon Branham on 09-08-2024 Nucleated RBC/100 WBC (Bld) [Ratio] 0 % 0-5 [facility] Platelet countOrdered By: Bill Branham on 09-08-2024 Platelets (Bld) [#/Vol] 201 10*3/uL 150-450 [facility] RBC Auto (Bld) [#/Vol]Ordere d By: Travon Branham on 09-08-2024 RBC (Bld) [#/Vol] 4.72 10*6/uL 4.2-5.4 [facility] Serum globulin measurementOr dered By: Travon Branham 09-08-2024 Globulin (S) [Mass/Vol] 2.6 g/dL 2.2-4.2 [facility] Serum glucose measurement (m ass/volume)Ordered By: Travon Branham 09-08-2024 Glucose [Mass/Vol] 82 mg/dL 70-99 [facility] Serum or plasma alanine hogan otransferase (ALT) measurementOrdered By: Travon Branham on 09-08-2024 ALT [Catalytic activity/Vol] 13 U/L <35 [facility] Serum or plasma albumin vinicius urement (mass/volume)Ordered By: Travon Branham 09-08-2024 Albumin [Mass/Vol] 4.6 g/dL 3.5-5.0 [facility] Serum or plasma albumin/glob ulin mass ratioOrdered By: Travon Branham 09-08-2024 Albumin/Globulin [Mass ratio] 1.7 {ratio} 0.9-2.4 [facility] Serum or plasma alkaline raulito sphatase measurementOrdered By: Travon Branham on 09-08-2024 ALP [Catalytic activity/Vol] 62 U/L 35-104 [facility] Serum or plasma anion gap de termination (moles/volume)Ordered By: Travon Branham on 09-08-2024 Anion gap [Moles/Vol] 16 mmol/L High 5-15 [facility] Serum or plasma calcium vinicius urement (mass/volume)Ordered By: Travon Branham on 09-08-2024 Calcium [Mass/Vol] 9.5 mg/dL 7.6-11.0 [facility] Serum or plasma creatinine m easurement (moles/volume)Ordered By: Travon Branham on 09-08-2024 Creatinine [Moles/Vol] 0.9 mg/dL 0.6-1.0 [facility] Serum or plasma potassium me asurementOrdered By: Travon Branham 09-08-2024 Potassium [Moles/Vol] 4.3 mmol/L 3.3-5.1 [facility] Serum or plasma sodium measu rement (moles/volume)Ordered By: Travon Branham on 09-08-2024 Sodium [Moles/Vol] 142 mmol/L 133-145 [facility] Serum or plasma urea nitroge n measurement (mass/volume)Ordered By: Travon Branham 09-08-2024 Urea nitrogen [Mass/Vol] 14 mg/dL 4-19 [facility] TSH DL <= 0.005 mIU/L QnOrde red By: Travon Branham on 09-08-2024 Thyroid Stimulating Hormone (TSH) 1.490 uIU/mL 0.300-4.200 [facility] TSH Qn 1.490 uIU/mL 0.300-4.200 [facility] Thyroid Stim Hormone (TSH)on 09-08-2024 TSH 1.490 uIU/mL Normal 0.300-4.200 [facility] Comment on above: Performed By: #### L 501.9588, L500.4050, L100.0100 #### [facility] [address] [place], [address] Total proteinOrdered By: Travon Branham on 09-08-2024 Protein [Mass/Vol] 7.2 g/dL 5.9-8.4 [facility] White blood cell (WBC) count Ordered By: Travon Branham on 09-08-2024 WBC (Bld) [#/Vol] 5.2 10*3/uL 4.4-11.0 [facility] Absolute lymphocyte countOrd ered By: Travon Branham on 09-03-2023 Lymphocytes Auto (Unsp spec) [#/Vol] 2.31 10*3/uL 0.83-4.51 [facility] Automated lymphocyte count a s percentage of total leukocytesOrdered By: Travon Branham on 09-03-2023 Lymphocytes/100 WBC Auto (Unsp spec) 35.4 % 19-41 [facility] Basophil percentageOrdered B y: Travon Adolfo on 09-03-2023 Basophils/100 WBC (Bld) 0.8 % 0-1 [facility] Bilirubin [Mass/Vol] 0.50 mg/dL 0.20-1.00 [facility] Comment on above: For patients on eltr ombopag therapy, use of Dimension [place] TBIL is not recommended. Chloride [Moles/Vol] 110 mmol/L 98-107 [facility] Eosinophils/100 WBC (Bld) 0.9 % 0-5 [facility] Glucose [Mass/Vol] 80 mg/dL 74-106 [facility] Hemoglobin (Bld) [Mass/Vol] 14.0 g/dL 12.0-15.0 [facility] Monocytes/100 WBC (Bld) 6.3 % 0-10 [facility] Neutrophils (Bld) [#/Vol] 3.7 10*3/uL 2.0-7.7 [facility] Neutrophils/100 WBC (Bld) 56.3 % 47-70 [facility] Potassium [Moles/Vol] 3.7 mmol/L 3.5-5.1 [facility] Protein [Mass/Vol] 7.3 g/dL 6.4-8.2 [facility] Sodium [Moles/Vol] 143 mmol/L 136-145 [facility] WBC (Bld) [#/Vol] 6.5 10*3/uL 4.4-11.0 [facility] Determination of erythrocyte mean corpuscular volume (MCV)Ordered By: Travon Branham on 09-03-2023 MCV (RBC) [Entitic vol] 87.3 fL 81-99 [facility] Erythrocyte distribution wid th ratioOrdered By: Travon Branham on 09-03-2023 Erythrocyte distribution width (RBC) [Ratio] 12.9 % 11.6-14.6 [facility] Erythrocyte distribution wid th standard deviationOrdered By: Travon Branham on 09-03-2023 Erythrocyte distribution width (RBC) [Entitic vol] 40.5 fL 35.1-43.9 [facility] Hematocrit Auto (Bld) [Volum e fraction][facility] Hematocrit (Bld) [Volume fraction] 42.5 % 37-47 [facility] Immature granulocytes/100 WB C Auto (Bld)[facility] Immature granulocytes/100 WBC (Bld) 0.300 % 0.0-0.9 [facility] Comment on above: IG% - Immature Granu locytes (promyelocytes, myelocytes and metamyelocytes) > 1% indicates that a LEFT SHIFT is Present. Laboratory - Chemistry and C hemistry - challengeOrdered By: Travon Branham on 09-03-2023 Albumin/Globulin [Mass ratio] 1.3 {ratio} 0.9-2.4 [facility] ALP [Catalytic activity/Vol] 77 U/L 45-117 [facility] ALT [Catalytic activity/Vol] 16 U/L 13-56 [facility] CO2 [Moles/Vol] 26.0 mmol/L 21.0-32.0 [facility] Globulin (S) [Mass/Vol] 3.2 g/dL 2.2-4.2 [facility] Urea nitrogen/Creatinine [Mass ratio] 17.1 mg/mg 10-20 [facility] Laboratory - Hematology and Cell countsOrdered By: Travon Branham 09-03-2023 MCH (RBC) [Entitic mass] 28.7 pg 27.0-32.0 [facility] MCHC (RBC) [Mass/Vol] 32.9 g/dL 32-36 [facility] Nucleated RBC/100 WBC (Bld) [Ratio] 0 % 0-5 [facility] Platelet mean volume (Bld) [Entitic vol] 10.2 fL 6.2-12.0 [facility] Platelets (Bld) [#/Vol] 188 10*3/uL 150-450 [facility] No Panel InformationOrdered By: Travon Branham on 09-03-2023 Estimated GFR (MDRD) Amer 85 mL/min >60 [facility] Comment on above: GFR Calc Estimated GFR (MDRD) Non-Af Amer 71 mL/min >60 [facility] Comment on above: Non- GFR Calc RBC Auto (Bld) [#/Vol]Ordere d By: Travon Branham on 09-03-2023 RBC (Bld) [#/Vol] 4.87 10*6/uL 4.2-5.4 [facility] Serum or plasma calcium vinicius urement (mass/volume)Ordered By: Travon Branham on 09-03-2023 Calcium [Mass/Vol] 9.1 mg/dL 8.5-10.1 [facility] Serum or plasma creatinine m easurement (mass/volume)Ordered By: Travon Branham on 09-03-2023 Creatinine [Mass/Vol] 0.88 mg/dL 0.55-1.02 [facility] Comment on above: The validity of the calculated GFR & GFRAA in patients over 70 years has not been determined. Clinical correlation is essential. Serum or plasma thyroid stim ulating hormone (TSH) measurement (units/volume)Ordered By: Travon Branham 09-03-2023 TSH Qn 0.43 uIU/mL 0.358-3.74 [facility] Serum or plasma urea nitroge n measurement (mass/volume)Ordered By: Travon Branham on 09-03-2023 Urea nitrogen [Mass/Vol] 15 mg/dL 7-18 [facility] Thin prep Papanicolaou smear with manual screeningOrdered By: Travon Branham 09-03-2023 Thin prep Papanicolaou smear with manual screening 4.1 g/dL 3.2-5.0 [facility] Thin prep Papanicolaou smear with manual screening 15 U/L 15-37 [facility] Thin prep Papanicolaou smear with manual screening 7 5-15 [facility] Absolute lymphocyte countOrd ered By: Quinn Arnold on 07-25-2023 Lymphocytes Auto (Unsp spec) [#/Vol] 1.69 10*3/uL 0.83-4.51 [facility] Basophil percentageOrdered B y: Quinn Arnold on 07-25-2023 Basophil percentage 3.3 mg/dL 2.5-4.9 [facility] Basophils/100 WBC (Bld) 0.7 % 0-1 [facility] Chloride [Moles/Vol] 117 mmol/L 98-107 [facility] Eosinophils/100 WBC (Bld) 1.4 % 0-5 [facility] Glucose [Mass/Vol] 91 mg/dL 74-106 [facility] Neutrophils (Bld) [#/Vol] 3.6 10*3/uL 2.0-7.7 [facility] Neutrophils/100 WBC (Bld) 61.4 % 47-70 [facility] Potassium [Moles/Vol] 3.8 mmol/L 3.5-5.1 [facility] Sodium [Moles/Vol] 146 mmol/L 136-145 [facility] WBC (Bld) [#/Vol] 5.9 10*3/uL 4.4-11.0 [facility] Blood erythrocytes count (nu mber/volume)Ordered By: Quinn Arnold on 07-25-2023 RBC (Bld) [#/Vol] 4.22 10*6/uL 4.2-5.4 [facility] Blood hemoglobin measurement (mass/volume)Ordered By: Quinn Arnold on 07-25-2023 Hemoglobin (Bld) [Mass/Vol] 12.3 g/dL 12.0-15.0 [facility] Blood lymphocytes/100 leukoc ytesOrdered By: Quinn Arnold on 07-25-2023 Lymphocytes/100 WBC (Bld) 28.5 % 19-41 [facility] Blood monocytes/100 leukocyt esOrdered By: Quinn Arnold on 07-25-2023 Monocytes/100 WBC (Bld) 7.8 % 0-10 [facility] Blood platelet mean volumeOr dered By: Quinn Arnold on 07-25-2023 Platelet mean volume (Bld) [Entitic vol] 10.7 fL 6.2-12.0 [facility] Determination of erythrocyte mean corpuscular volume (MCV)Ordered By: Quinn Arnold on 07-25-2023 MCV (RBC) [Entitic vol] 88.4 fL 81-99 [facility] Hematocrit Auto (Bld) [Volum e fraction]Ordered By: Quinn Arnold on 07-25-2023 Hematocrit (Bld) [Volume fraction] 37.3 % 37-47 [facility] Laboratory - Chemistry and C hemistry - challengeOrdered By: Quinn Arnold on 07-25-2023 CO2 [Moles/Vol] 22.0 mmol/L 21.0-32.0 [facility] Magnesium [Mass/Vol] 2.1 mg/dL 1.6-2.6 [facility] Urea nitrogen/Creatinine [Mass ratio] 15.8 mg/mg 10-20 [facility] Laboratory - Hematology and Cell countsOrdered By: Quinn Arnold on 07-25-2023 Erythrocyte distribution width (RBC) [Entitic vol] 42.5 fL 35.1-43.9 [facility] Erythrocyte distribution width (RBC) [Ratio] 13.2 % 11.6-14.6 [facility] Immature granulocytes/100 WBC (Bld) 0.200 % 0.0-0.9 [facility] Comment on above: IG% - Immature Granu locytes (promyelocytes, myelocytes and metamyelocytes) > 1% indicates that a LEFT SHIFT is Present. MCH (RBC) [Entitic mass] 29.1 pg 27.0-32.0 [facility] Nucleated RBC/100 WBC (Bld) [Ratio] 0 % 0-5 [facility] MCHC Auto (RBC) [Mass/Vol]Or dered By: Quinn Arnold on 07-25-2023 MCHC (RBC) [Mass/Vol] 33.0 g/dL 32-36 [facility] No Panel InformationOrdered By: Quinn Arnold on 07-25-2023 Estimated Creatinine Clearance Calc 81.93 ml/min [facility] Estimated GFR (MDRD) Amer 92 mL/min >60 [facility] Comment on above: GFR Calc Estimated GFR (MDRD) Non-Af Amer 76 mL/min >60 [facility] Comment on above: Non- GFR Calc Platelets bldOrdered By: Oscar Arnold on 07-25-2023 Platelets (Bld) [#/Vol] 190 10*3/uL 150-450 [facility] Serum or plasma calcium vinicius urement (mass/volume)Ordered By: Quinn Arnold on 07-25-2023 Calcium [Mass/Vol] 8.7 mg/dL 8.5-10.1 [facility] Serum or plasma creatinine m easurement (mass/volume)Ordered By: Quinn Arnold on 07-25-2023 Creatinine [Mass/Vol] 0.82 mg/dL 0.55-1.02 [facility] Comment on above: The validity of the calculated GFR & GFRAA in patients over 70 years has not been determined. Clinical correlation is essential. Serum or plasma urea nitroge n measurement (mass/volume)Ordered By: Quinn Arnold on 07-25-2023 Urea nitrogen [Mass/Vol] 13 mg/dL 7-18 [facility] Thin prep Papanicolaou smear with manual screeningOrdered By: Quinn Arnodl on 07-25-2023 Thin prep Papanicolaou smear with manual screening 7 5-15 [facility] INR in Blood by Coagulation assayOrdered By: Jose Maria Smith on 07-24-2023 INR Coag (Bld) [Relative time] 1.0 {INR} [facility] Laboratory - Chemistry and C hemistry - challengeOrdered By: Quinn Arnold on 07-24-2023 Natriuretic peptide B (Bld) [Mass/Vol] 442.7 pg/mL 0-100 [facility] Laboratory - CoagulationOrde red By: Jose Maria Smith on 07-24-2023 aPTT Coag (Bld) [Time] 27.1 s 24.1-36.2 [facility] PT Coag (PPP) [Time] 13.3 s 11.7-14.9 [facility] No Panel InformationOrdered By: Quinn Arnold on 07-24-2023 Troponin I High Sensitivity 5 pg/mL 3.0-54.0 [facility] Comment on above: Please Note: [place] t Units and Gender Specific Reference Ranges. For more information see Policy Stat Procedure [place] High Sensitivity Troponin (TNIH) and attachments. D-Dimer Quantitative (PE/DVT) 0.69 FEU/ug/m 0.27-0.49 [facility] Comment on above: D-Dimer ELEVATED (>0 .49): Additional studies and clinicalassessments are indicated to conclude diagnosis of:Deep Vein Thrombosis (DVT) or Pulmonary Embolism (PE) No Panel InformationOrdered By: Jose Maria Smith on 07-24-2023 Thyroid Stimulating Hormone (TSH) 0.92 uIU/mL 0.358-3.74 [facility] Absolute lymphocyte countOrd ered By: Travon Branham on 02-21-2023 Lymphocytes Auto (Unsp spec) [#/Vol] 2.02 10*3/uL 0.83-4.51 [facility] Basophil percentageOrdered B y: Travon Branham on 02-21-2023 Basophils/100 WBC (Bld) 0.8 % 0-1 [facility] Bilirubin [Mass/Vol] 0.40 mg/dL 0.20-1.00 [facility] Comment on above: For patients on eltr ombopag therapy, use of Dimension [place] TBIL is not recommended. Chloride [Moles/Vol] 111 mmol/L 98-107 [facility] Eosinophils/100 WBC (Bld) 1.3 % 0-5 [facility] Glucose [Mass/Vol] 108 mg/dL 74-106 [facility] Comment on above: Fasting Glucose resu lt from 100 to 125 mg/dL suggests IMPAIRED HOMEOSTASIS per A.D.A. criteria. Neutrophils (Bld) [#/Vol] 2.3 10*3/uL 2.0-7.7 [facility] Neutrophils/100 WBC (Bld) 47.7 % 47-70 [facility] Potassium [Moles/Vol] 3.8 mmol/L 3.5-5.1 [facility] Protein [Mass/Vol] 7.2 g/dL 6.4-8.2 [facility] Sodium [Moles/Vol] 143 mmol/L 136-145 [facility] WBC (Bld) [#/Vol] 4.7 10*3/uL 4.4-11.0 [facility] Blood erythrocytes count (nu mber/volume)Ordered By: Travon Branham on 02-21-2023 RBC (Bld) [#/Vol] 4.65 10*6/uL 4.2-5.4 [facility] Blood hemoglobin measurement (mass/volume)Ordered By: Travon Branham on 02-21-2023 Hemoglobin (Bld) [Mass/Vol] 13.8 g/dL 12.0-15.0 [facility] Blood lymphocytes/100 leukoc ytesOrdered By: Travon Branham on 02-21-2023 Lymphocytes/100 WBC (Bld) 42.8 % 19-41 [facility] Blood monocytes/100 leukocyt esOrdered By: Travon Branham on 02-21-2023 Monocytes/100 WBC (Bld) 7.2 % 0-10 [facility] Blood platelet mean volumeOr dered By: Travon Branham on 02-21-2023 Platelet mean volume (Bld) [Entitic vol] 10.2 fL 6.2-12.0 [facility] Determination of erythrocyte mean corpuscular volume (MCV)Ordered By: Travon Branham on 02-21-2023 MCV (RBC) [Entitic vol] 90.1 fL 81-99 [facility] Hematocrit Auto (Bld) [Volum e fraction]Ordered By: Travon Branham on 02-21-2023 Hematocrit (Bld) [Volume fraction] 41.9 % 37-47 [facility] Laboratory - Chemistry and C hemistry - challengeOrdered By: Travon Branham on 02-21-2023 ALP [Catalytic activity/Vol] 70 U/L 45-117 [facility] ALT [Catalytic activity/Vol] 21 U/L 13-56 [facility] CO2 [Moles/Vol] 25.0 mmol/L 21.0-32.0 [facility] Globulin (S) [Mass/Vol] 3.3 g/dL 2.2-4.2 [facility] Urea nitrogen/Creatinine [Mass ratio] 18.8 mg/mg 10-20 [facility] Laboratory - Hematology and Cell countsOrdered By: Travon Branham on 02-21-2023 Erythrocyte distribution width (RBC) [Entitic vol] 41.3 fL 35.1-43.9 [facility] Erythrocyte distribution width (RBC) [Ratio] 12.6 % 11.6-14.6 [facility] Immature granulocytes/100 WBC (Bld) 0.200 % 0.0-0.9 [facility] Comment on above: IG% - Immature Granu locytes (promyelocytes, myelocytes and metamyelocytes) > 1% indicates that a LEFT SHIFT is Present. MCH (RBC) [Entitic mass] 29.7 pg 27.0-32.0 [facility] Nucleated RBC/100 WBC (Bld) [Ratio] 0 % 0-5 [facility] MCHC Auto (RBC) [Mass/Vol]Or dered By: Travon Branham on 02-21-2023 MCHC (RBC) [Mass/Vol] 32.9 g/dL 32-36 [facility] No Panel InformationOrdered By: Travon Branham on 02-21-2023 Estimated GFR (MDRD) Amer 95 mL/min >60 [facility] Comment on above: GFR Calc Estimated GFR (MDRD) Non-Af Amer 79 mL/min >60 [facility] Comment on above: Non- GFR Calc Thyroid Stimulating Hormone (TSH) 0.33 uIU/mL 0.358-3.74 [facility] Platelets bldOrdered By: Travon Branham on 02-21-2023 Platelets (Bld) [#/Vol] 189 10*3/uL 150-450 [facility] Serum or plasma albumin vinicius urement (mass/volume)Ordered By: Travon Branham on 02-21-2023 Albumin [Mass/Vol] 3.9 g/dL 3.2-5.0 [facility] Serum or plasma albumin/glob ulin mass ratioOrdered By: Travon Branham on 02-21-2023 Albumin/Globulin [Mass ratio] 1.2 {ratio} 0.9-2.4 [facility] Serum or plasma calcium vinicius urement (mass/volume)Ordered By: Travon Branham on 02-21-2023 Calcium [Mass/Vol] 8.9 mg/dL 8.5-10.1 [facility] Serum or plasma creatinine m easurement (mass/volume)Ordered By: Travon Branham on 02-21-2023 Creatinine [Mass/Vol] 0.80 mg/dL 0.55-1.02 [facility] Comment on above: The validity of the calculated GFR & GFRAA in patients over 70 years has not been determined. Clinical correlation is essential. Serum or plasma urea nitroge n measurement (mass/volume)Ordered By: Travon Branham on 02-21-2023 Urea nitrogen [Mass/Vol] 15 mg/dL 7-18 [facility] Thin prep Papanicolaou smear with manual screeningOrdered By: Travon Branham on 02-21-2023 Thin prep Papanicolaou smear with manual screening 18 U/L 15-37 [facility] Thin prep Papanicolaou smear with manual screening 7 5-15 [facility] US THYROIDon 02-21-2023 [place] [address] Patient: FIONA VASQUEZ Phone#: : 1965 Age: 57 Gender: F Pt. Type: Out Account: [id number] Location: Ordering: JD ROGEL Exam Date: 02/21/2023/8:16 Family Phys: TRAVON BRANHAM Charge Code: [id number] Physician: [place] Order #: [id number] Dose#: PROCEDURE: THYROID ULTRASOUND COMPARISON: None. INDICATIONS: [...] Saavedra MD on 02/21/2023 at 11:40 Normal [facility] Absolute lymphocyte countOrd ered By: Dr. Branham on 08-30-2022 Lymphocytes Auto (Unsp spec) [#/Vol] 1.95 10*3/uL 0.83-4.51 [facility] Basophil percentageOrdered B y: Dr. Branham on 08-30-2022 Basophils/100 WBC (Bld) 0.9 % 0-1 [facility] Bilirubin [Mass/Vol] 0.50 mg/dL 0.20-1.00 [facility] Comment on above: For patients on eltr ombopag therapy, use of Dimension [place] TBIL is not recommended. Chloride [Moles/Vol] 110 mmol/L 98-107 [facility] Eosinophils/100 WBC (Bld) 1.7 % 0-5 [facility] Glucose [Mass/Vol] 84 mg/dL 74-106 [facility] Neutrophils (Bld) [#/Vol] 2.8 10*3/uL 2.0-7.7 [facility] Neutrophils/100 WBC (Bld) 53.0 % 47-70 [facility] Potassium [Moles/Vol] 4.2 mmol/L 3.5-5.1 [facility] Protein [Mass/Vol] 7.7 g/dL 6.4-8.2 [facility] Sodium [Moles/Vol] 142 mmol/L 136-145 [facility] WBC (Bld) [#/Vol] 5.3 10*3/uL 4.4-11.0 [facility] Blood erythrocytes count (nu mber/volume)Ordered By: Dr. Branham on 08-30-2022 RBC (Bld) [#/Vol] 4.85 10*6/uL 4.2-5.4 [facility] Blood hemoglobin measurement (mass/volume)Ordered By: Dr. Branham on 08-30-2022 Hemoglobin (Bld) [Mass/Vol] 14.4 g/dL 12.0-15.0 [facility] Blood lymphocytes/100 leukoc ytesOrdered By: Dr. Branham on 08-30-2022 Lymphocytes/100 WBC (Bld) 36.8 % 19-41 [facility] Blood monocytes/100 leukocyt esOrdered By: Dr. Branham on 08-30-2022 Monocytes/100 WBC (Bld) 7.4 % 0-10 [facility] Blood platelet mean volumeOr dered By: Dr. Branham on 08-30-2022 Platelet mean volume (Bld) [Entitic vol] 10.9 fL 6.2-12.0 [facility] Determination of erythrocyte mean corpuscular volume (MCV)Ordered By: Dr. Branham on 08-30-2022 MCV (RBC) [Entitic vol] 90.5 fL 81-99 [facility] Hematocrit Auto (Bld) [Volum e fraction]Ordered By: Dr. Branham on 08-30-2022 Hematocrit (Bld) [Volume fraction] 43.9 % 37-47 [facility] Laboratory - Chemistry and C hemistry - challengeOrdered By: Dr. Branham on 08-30-2022 ALP [Catalytic activity/Vol] 77 U/L 45-117 [facility] ALT [Catalytic activity/Vol] 26 U/L 13-56 [facility] CO2 [Moles/Vol] 25.0 mmol/L 21.0-32.0 [facility] Globulin (S) [Mass/Vol] 3.5 g/dL 2.2-4.2 [facility] Urea nitrogen/Creatinine [Mass ratio] 25.0 mg/mg 10-20 [facility] Laboratory - Hematology and Cell countsOrdered By: Dr. Branham on 08-30-2022 Erythrocyte distribution width (RBC) [Entitic vol] 41.4 fL 35.1-43.9 [facility] Erythrocyte distribution width (RBC) [Ratio] 12.7 % 11.6-14.6 [facility] Immature granulocytes/100 WBC (Bld) 0.200 % 0.0-0.9 [facility] Comment on above: IG% - Immature Granu locytes (promyelocytes, myelocytes and metamyelocytes) > 1% indicates that a LEFT SHIFT is Present. MCH (RBC) [Entitic mass] 29.7 pg 27.0-32.0 [facility] Nucleated RBC/100 WBC (Bld) [Ratio] 0 % 0-5 [facility] MCHC Auto (RBC) [Mass/Vol]Or dered By: Dr. Branham on 08-30-2022 MCHC (RBC) [Mass/Vol] 32.8 g/dL 32-36 [facility] No Panel InformationOrdered By: Dr. Branham on 08-30-2022 Estimated GFR (MDRD) Amer 77 mL/min >60 [facility] Comment on above: GFR Calc Estimated GFR (MDRD) Non-Af Amer 64 mL/min >60 [facility] Comment on above: Non- GFR Calc Thyroid Stimulating Hormone (TSH) 0.52 uIU/mL 0.358-3.74 [facility] Vitamin D 25-Hydroxy 65.4 ng/mL [facility] Comment on above: Vitamin D 25(OH) Sta tus Range Deficiency <20 ng/mL (50nmol/L) Insufficiency 20 - 30 ng/mL (50 - 75 nmol/L) Sufficiency 30 - 100 ng/mL (75 - 250 nmol/L) Toxicity >100 ng/mL (>250 nmol/L) Platelets bldOrdered By: Dr. Branham on 08-30-2022 Platelets (Bld) [#/Vol] 187 10*3/uL 150-450 [facility] Serum or plasma albumin vinicius urement (mass/volume)Ordered By: Dr. Branham on 08-30-2022 Albumin [Mass/Vol] 4.2 g/dL 3.2-5.0 [facility] Serum or plasma albumin/glob ulin mass ratioOrdered By: Dr. Branham on 08-30-2022 Albumin/Globulin [Mass ratio] 1.2 {ratio} 0.9-2.4 [facility] Serum or plasma calcium vinicius urement (mass/volume)Ordered By: Dr. Branham on 08-30-2022 Calcium [Mass/Vol] 9.8 mg/dL 8.5-10.1 [facility] Serum or plasma creatinine m easurement (mass/volume)Ordered By: Dr. Branham on 08-30-2022 Creatinine [Mass/Vol] 0.96 mg/dL 0.55-1.02 [facility] Comment on above: The validity of the calculated GFR & GFRAA in patients over 70 years has not been determined. Clinical correlation is essential. Serum or plasma urea nitroge n measurement (mass/volume)Ordered By: Dr. Branham on 08-30-2022 Urea nitrogen [Mass/Vol] 24 mg/dL 7-18 [facility] Thin prep Papanicolaou smear with manual screeningOrdered By: Dr. Branham on 08-30-2022 Thin prep Papanicolaou smear with manual screening 19 U/L 15-37 [facility] Thin prep Papanicolaou smear with manual screening 7 5-15 [facility] Absolute lymphocyte counton 08-28-2021 Lymphocytes Auto (Unsp spec) [#/Vol] 2.41 10*3/uL 0.83-4.51 [facility] Work Phone: Basophil percentageon 2021 Basophils/100 WBC (Bld) 0.8 % 0-1 [facility] Work Phone: Bilirubin [Mass/Vol] 0.70 mg/dL 0.20-1.00 [facility] Work Phone: Comment on above: For patients on eltr ombopag therapy, use of Dimension [place] TBIL is not recommended. Chloride [Moles/Vol] 112 mmol/L 98-107 [facility] Work Phone: Eosinophils/100 WBC (Bld) 1.8 % 0-5 [facility] Work Phone: Glucose [Mass/Vol] 93 mg/dL 74-106 [facility] Work Phone: Neutrophils (Bld) [#/Vol] 4.5 10*3/uL 2.0-7.7 [facility] Work Phone: Neutrophils/100 WBC (Bld) 58.8 % 47-70 [facility] Work Phone: Potassium [Moles/Vol] 4.2 mmol/L 3.5-5.1 [facility] Work Phone: Protein [Mass/Vol] 7.8 g/dL 6.4-8.2 [facility] Work Phone: Sodium [Moles/Vol] 141 mmol/L 136-145 [facility] Work Phone: WBC (Bld) [#/Vol] 7.7 10*3/uL 4.4-11.0 [facility] Work Phone: Blood erythrocytes count (nu mber/volume)on 08-28-2021 RBC (Bld) [#/Vol] 4.68 10*6/uL 4.2-5.4 [facility] Work Phone: Blood hemoglobin measurement (mass/volume)on 08-28-2021 Hemoglobin (Bld) [Mass/Vol] 14.7 g/dL 12.0-15.0 [facility] Work Phone: Blood lymphocytes/100 leukoc yteson 08-28-2021 Lymphocytes/100 WBC (Bld) 31.3 % 19-41 [facility] Work Phone: Blood monocytes/100 leukocyt eson 08-28-2021 Monocytes/100 WBC (Bld) 6.9 % 0-10 [facility] Work Phone: Blood platelet mean volumeon 08-28-2021 Platelet mean volume (Bld) [Entitic vol] 9.9 fL 6.2-12.0 [facility] Work Phone: Determination of erythrocyte mean corpuscular volume (MCV)on 08-28-2021 MCV (RBC) [Entitic vol] 89.1 fL 81-99 [facility] Work Phone: Hematocrit Auto (Bld) [Volum e fraction]on 08-28-2021 Hematocrit (Bld) [Volume fraction] 41.7 % 37-47 [facility] Work Phone: Laboratory - Chemistry and C hemistry - challengeon 08-28-2021 ALP [Catalytic activity/Vol] 76 U/L 45-117 [facility] Work Phone: ALT [Catalytic activity/Vol] 36 U/L 13-56 [facility] Work Phone: CO2 [Moles/Vol] 27.0 mmol/L 21.0-32.0 [facility] Work Phone: Globulin (S) [Mass/Vol] 3.5 g/dL 2.2-4.2 [facility] Work Phone: Urea nitrogen/Creatinine [Mass ratio] 22.1 mg/mg 10-20 [facility] Work Phone: Laboratory - Hematology and Cell countson 08-28-2021 Erythrocyte distribution width (RBC) [Entitic vol] 41.8 fL 35.1-43.9 [facility] Work Phone: Erythrocyte distribution width (RBC) [Ratio] 12.8 % 11.6-14.6 [facility] Work Phone: Immature granulocytes/100 WBC (Bld) 0.400 % 0.0-0.9 [facility] Work Phone: Comment on above: IG% - Immature Granu locytes (promyelocytes, myelocytes and metamyelocytes) > 1% indicates that a LEFT SHIFT is Present. MCH (RBC) [Entitic mass] 31.4 pg 27.0-32.0 [facility] Work Phone: Nucleated RBC/100 WBC (Bld) [Ratio] 0 % 0-5 [facility] Work Phone: MCHC Auto (RBC) [Mass/Vol]on 08-28-2021 MCHC (RBC) [Mass/Vol] 35.3 g/dL 32-36 [facility] Work Phone: No Panel Informationon 08-28 Estimated GFR (MDRD) Amer 83 mL/min >60 [facility] Work Phone: Comment on above: GFR Calc Estimated GFR (MDRD) Non-Af Amer 69 mL/min >60 [facility] Work Phone: Comment on above: Non- GFR Calc Hepatitis C Antibody Non-Reactive Nonreactive [facility] Work Phone: Comment on above: Non Reactive: < 0.8 Equivocal: >/= 0.8 to < 1.0 Reactive: >/= 1.0The CDC recommends that a reactive/equivocal HCV antibody result be followed up by the HCV Nucleic Acid Amplificationtest (418333) Thyroid Stimulating Hormone (TSH) 1.29 uIU/mL 0.358-3.74 [facility] Work Phone: Vitamin D 25-Hydroxy 49.9 ng/mL [facility] Work Phone: Comment on above: Vitamin D 25(OH) Sta tus Range Deficiency <20 ng/mL (50nmol/L) Insufficiency 20 - 30 ng/mL (50 - 75 nmol/L) Sufficiency 30 - 100 ng/mL (75 - 250 nmol/L) Toxicity >100 ng/mL (>250 nmol/L) Platelets bldon 08-28-2021 Platelets (Bld) [#/Vol] 197 10*3/uL 150-450 [facility] Work Phone: Serum or plasma albumin vinicius urement (mass/volume)on 08-28-2021 Albumin [Mass/Vol] 4.3 g/dL 3.2-5.0 [facility] Work Phone: Serum or plasma albumin/glob ulin mass ratioon 08-28-2021 Albumin/Globulin [Mass ratio] 1.2 {ratio} 0.9-2.4 [facility] Work Phone: Serum or plasma calcium vinicius urement (mass/volume)on 08-28-2021 Calcium [Mass/Vol] 9.2 mg/dL 8.5-10.1 [facility] Work Phone: Serum or plasma creatinine m easurement (mass/volume)on 08-28-2021 Creatinine [Mass/Vol] 0.90 mg/dL 0.55-1.02 [facility] Work Phone: Comment on above: The validity of the calculated GFR & GFRAA in patients over 70 years has not been determined. Clinical correlation is essential. Serum or plasma urea nitroge n measurement (mass/volume)on 08-28-2021 Urea nitrogen [Mass/Vol] 20 mg/dL 7-18 [facility] Work Phone: Thin prep Papanicolaou smear with manual screeningon 08-28-2021 Thin prep Papanicolaou smear with manual screening 28 U/L 15-37 [facility] Work Phone: Thin prep Papanicolaou smear with manual screening 2 5-15 [facility] Work Phone: Kendra 12-05-2017 CNOV Office Visit (WOOB) FIONA VASQUEZ ([id number]) 1965 F Date Time Provider Department 12/05/17 [...] estrogen pellet injected by a provider in [facility]. Patient reports the pellets were placed [...] cancer She plans to f/u with the soda room operator who prescribed the medications Jessi Cuba MD [...] screening for malignant neoplasm of cervix [Z12.4] Order(s):US FEMALE PELVIS TRANSVAG [[id number]] Order #: [id number] FUTURE US FEMALE PELVIS TRANSABD LTD [[id number]] Order #: [id number] FUTURE PAP FLUID CERVICAL SCREENING [[id number]] Order #: [id number] Prescriptions as of 12/05/2017 Sig: METOPROLOL TARTRATE [...] by JESSI CUBA MD on 12/05/17 Normal [facility] CYTOLOGYon 12-05-2017 CYTOLOGY ADDENDUM PRESENT Specimen originated from [facility] Specimen #: [id number] Submitting Physician: JESSI CUBA MD SPECIMEN SUBMITTED [...] This specimen has been analyzed by the [employer] Imaging System, an automated imaging and review system, which assists the laboratory in evaluating cells on ThinPrep Pap tests. Following automated imaging, selected francois from every slide are reviewed by a cisco consultant. Olga Liu M.D. (Electronic Signature) ADDENDUM Date [...] developed and its performance characteristics determined by [facility]'s [place] [facility] Pathology and Laboratory Medicine [place] ([facility] It has not been cleared or approved by the FDA. -[facility] is regulated under CLIA as qualified to perform high-complexity testing. This test is used for clinical purposes. It should not be regarded as investigational or for research. CLINICAL DATA ROUTINE EXAM, HPV Testing: Yes, automatic HPV patients over 30 Date of Last Menstrual Period: Postmenopausal GROSS DESCRIPTION Glacial Acetic Acid added. STAINS A: CERVICAL, SCREENING, FLUID THIN PREP HEAT AND FROST INSULATOR x 2 Date of Report: 12/16/2017 Date of Procedure: 12/05/2017 Date of Receipt: 12/10/2017 Submitted by: JESSI CUBA MD Location: [facility] Diagnostic interpretation performed at [facility], [address] [place] [address] [place] [address]. The Pap Smear is a screening test for cervical cancer. False negative results occur with all screening tests, emphasizing the need for rescreening at recommended intervals, and clinical correlation. Normal [facility] HPV w/Genotypeon 12-05-2017 HPV HighRisk Other Negative for HPV DNA high risk types: 31,33,35,39,45,51,52,56 ,58,59,66,68 by PCR. Normal [facility] Comment on above: Result Comment: This test was developed and its performance characteristics determined by [facility] Path[facility] Medicine [place] ([facility] It has not been cleared or approved by the FDA. [facility] is regulated under CLIA as qualified to perform high-complexity testing. This test is used for clinical purposes. It should not be regarded as investigational or for research. Performed By: #### H PVHRR #### [facility] [address] [address] HPV HighRisk Type 16 Negative Normal [facility] Comment on above: Performed By: #### H PVHRR #### [facility] [address] [id number] HPV HighRisk Type 18 Negative Normal [facility] Comment on above: Performed By: #### H PVHRR #### [id number] [address] PROGRESSon 12-05-2017 Protein mass conc HNO ID: [id number] Author: Jessi Cuba Service: (none) Author Type: Physician Type: Progress Notes Filed: 12/05/2017 4:24 PM Note Text: Fiona Vasquez is a 52 year old female who presents for PMB. HPI: Patient presents with PMB. She had a testerosterone AND estrogen pellet injected by a provider in [facility]. Patient reports the pellets were placed [...] on vocal cord age 8 - THYROIDECTOMY 11/13 Parital thyroidectomy on right side FAMILY HISTORY [...] cancer She plans to f/u with the soda room operator who prescribed the medications Jessi Cuba MD Normal [facility] Vital Signs Date Time Vital Sign Value Performing Clinician Liliya roman 04-30-2025 07:51-0400 Body height 165.[address] Travon Branham MD Work Phone: 9(723)116-088422 [place] [address] 04-30-2025 07:51-0400 Body mass index (BMI) [Ratio] 26.6 kg/m2 Dr. Travon Branham MD Work Phone: 2(024)610-070922 [place] [address] 04-30-2025 07:51-0400 Body weight 72.[address] Travon Branham MD Work Phone: 0(627)456-961773 [place] [address] 04-30-2025 07:51-0400 Diastolic blood pressure 72 mm[Hg] Dr. Travon Branham MD Work Phone: 8(454)151-697073 [place] [address] 04-30-2025 07:51-0400 Heart rate 93 /min Dr. Travon Branham MD Work Phone: 7(627)610-367873 [place] [address] 04-30-2025 07:51-0400 Respiratory rate 18 /min Dr. Travon Branham MD Work Phone: 0(811)889-022173 [place] [address] 04-30-2025 07:51-0400 SaO2% (BldA) [Mass fraction] 99 % Dr. Travon Branham MD Work Phone: 1(496)796-300373 [place] [address] 04-30-2025 07:51-0400 Systolic blood pressure 109 mm[Hg] Dr. Travon Branham MD Work Phone: 2(600)318-395673 [place] [address] 12-19-2024 12:07-0400 Diastolic blood pressure 69 mm[Hg] Dr. Travon Branham MD Work Phone: 8(327)468-980873 [place] [address] 12-19-2024 12:07-0400 Heart rate 84 /min Dr. Travon Branham MD Work Phone: 4(945)504-887122 [place] [address] 12-19-2024 12:07-0400 Respiratory rate 18 /min Dr. Travon Branham MD Work Phone: 8(360)697-170073 [place] [address] 12-19-2024 12:07-0400 SaO2% (BldA) [Mass fraction] 96 % Dr. Travon Branham MD Work Phone: 4(861)621-321722 [place] [address] 12-19-2024 12:07-0400 Systolic blood pressure 117 mm[Hg] Dr. Travon Branham MD Work Phone: 2(929)809-201273 [place] [address] 12-19-2024 11:09-0400 Body temperature 98 [degF] Dr. Travon rBanham MD Work Phone: 6(008)576-101473 [place] [address] 12-19-2024 10:08-0400 Body height 165.[address] Travon Branham MD Work Phone: 1(191)152-430773 [place] [address] 12-19-2024 10:08-0400 Body mass index (BMI) [Ratio] 31 kg/m2 Dr. Travon Branham MD Work Phone: 5(361)968-840973 [place] [address] 12-19-2024 10:08-0400 Body weight 84.[address] Travon Branham MD Work Phone: 5(310)321-487673 [place] [address] 10-29-2024 14:05-0400 Body height 165.[address] Travon Branham MD Work Phone: 4(026)014-789073 [place] [address] 10-29-2024 14:05-0400 Body mass index (BMI) [Ratio] 30.6 kg/m2 Dr. Travon Branham MD Work Phone: 7(291)714-641473 [place] [address] 10-29-2024 14:05-0400 Body weight 83.[address] Travon Branham MD Work Phone: 2(054)582-620273 [place] [address] 10-29-2024 14:05-0400 Diastolic blood pressure 68 mm[Hg] Dr. Travon Branham MD Work Phone: 1(513)003-983673 [place] [address] 10-29-2024 14:05-0400 Heart rate 89 /min Dr. Travon Branham MD Work Phone: 9(232)358-688073 [place] [address] 10-29-2024 14:05-0400 Respiratory rate 16 /min Dr. Travon Branham MD Work Phone: 6(465)933-520573 [place] [address] 10-29-2024 14:05-0400 Systolic blood pressure 115 mm[Hg] Dr. Travon Branham MD Work Phone: 3(072)726-181173 [place] [address] 09-11-2023 13:00-0500 Body height 165.[address] Travon Branham Work Phone: 5(025)091-005273 [place] [address] 09-11-2023 13:00-0500 Body mass index (BMI) [Ratio] 31.1 kg/m2 Dr. Travon Branham Work Phone: 7(100)524-895922 [place] [address] 09-11-2023 13:00-0500 Body weight 85.[address] Travon Branham Work Phone: [facility] 09-11-2023 13:00-0500 Diastolic blood pressure 76 mm[Hg] Dr. Travon Branham Work Phone: 9(356)480-996422 [place] [address] 09-11-2023 13:00-0500 Heart rate 82 /min Dr. Travon Branham Work Phone: 5(166)256-413822 [place] [address] 09-11-2023 13:00-0500 Respiratory rate 14 /min Dr. Travon Branham Work Phone: 4(704)006-149522 [place] [address] 09-11-2023 13:00-0500 Systolic blood pressure 119 mm[Hg] Dr. Travon Branham Work Phone: 4(905)420-823173 [place] [address] 07-25-2023 12:34-0500 Heart rate 112 /min Dr. Travon Branham Work Phone: 4(639)097-498422 [place] [address] 07-25-2023 11:15-0500 Body temperature 97.8 [degF] Dr. Travon Branham Work Phone: 9(734)494-510873 [place] [address] 07-25-2023 11:15-0500 Diastolic blood pressure 61 mm[Hg] Dr. Travon Branham Work Phone: 0(809)381-892073 [place] [address] 07-25-2023 11:15-0500 Respiratory rate 20 /min Dr. Travon Branham Work Phone: 9(275)148-483322 [place] [address] 07-25-2023 11:15-0500 SaO2% (BldA) [Mass fraction] 96 % Dr. Travon Branham Work Phone: 2(416)948-052122 [place] [address] 07-25-2023 11:15-0500 Systolic blood pressure 109 mm[Hg] Dr. Travon Branham Work Phone: 4(876)166-823422 [place] [address] 07-24-2023 12:01-0500 Body height 165.[address] Travon Branham Work Phone: 0(751)856-195473 [place] [address] 07-24-2023 12:01-0500 Body mass index (BMI) [Ratio] 31.5 kg/m2 Dr. Travon Branham Work Phone: [facility] 07-24-2023 12:010500 Body weight 85.[address] Travon Branham Work Phone: [facility] Encounters Encounter Date Encounter Type Care Provider Facility Start: 05-27-2025 ambulatory Eleazar Demiter Facility :[facility] Start: 05-24-2025 End: 05-24-2025 ambulatory Travon Chi Adolfo Facility:[facility] Start: 05-17-2025 ambulatory Travon Chi Adolfo [facility] Start: 05-17-2025 ambulatory Travon Chi Adolfo [facility] Start: 05-17-2025 End: 05-18-2025 Evaluation and management of inpatient Travon Chi Adolfo Facility:[facility] Start: 05-17-2025 ambulatory Travon Chi Adolfo Facility:[facility] Start: 04-30-2025 End: 04-30-2025 Patient encounter procedure Candelaria Giang NP-[place] -[facility] Work Phone: Start: 04-30-2025 End: 04-30-[address] Travon Branham MD Work Phone: -[facility] Start: 03-09-2025 End: 03-09-[address] Travon Branham MD Work Phone: -Laboratory Phy [facility] 3rd Flr Start: 03-09-2025 End: 03-09-[address] Travon Branham MD -Laboratory Phy Office 3rd Flr Start: 03-09-2025 End: 03-09-2025 ambulatory Travon Chi Adolfo Facility:[facility] Start: 12-22-2024 End: 12-22-[address] Travon Branham MD Work Phone: [facility] Work Phone: Start: 12-22-2024 End: 12-22-[address] Travon Branham MD -Radiology [facility] Work Phone: Start: 12-22-2024 End: 12-22-2024 ambulatory Travon Nelson Branham Facility:[facility] Start: 12-19-2024 End: 12-19-2024 Emergency department patient visit Dr. Travon Branham MD Work Phone: -Emergency Department Work Phone: Start: 12-10-2024 End: 12-10-[address] Travon Branham MD Work Phone: [facility] Work Phone: Start: 12-10-2024 End: 12-10-[address] Travon Branham MD -Laboratory Work Phone: Start: 12-10-2024 End: 12-10-2024 ambulatory Travon Nelson Nunezok Facility:[facility] Start: 10-29-2024 End: 10-29-2024 Patient encounter procedure Jenae Ocasio [place] -[facility] Work Phone: Start: 10-29-2024 End: 10-29-2024 ambulatory Travon [facility] Adolfo Facility:[facility] Start: 10-07-2024 End: 10-07-[address] Travon Branham MD Work Phone: [facility] Work Phone: Start: 10-07-2024 End: 10-07-[address] Travon Branham MD -Outpatient Breast Imaging Work Phone: Start: 10-07-2024 End: 10-07-2024 ambulatory Travon Nelson Nunezok Facility:[facility] Start: 09-08-2024 End: 09-08-[address] Travon Branham MD Work Phone: [facility] Work Phone: Start: 09-08-2024 End: 09-08-[address] Travon Branham MD -Laboratory, Phy Office 3rd Flr Start: 09-08-2024 End: 09-08-2024 ambulatory Travon Branham Facility:[facility] Start: 10-07-2023 End: 10-07-[address] Travon Branham Work Phone: [facility] Work Phone: Start: 10-07-2023 End: 10-07-[address] Travon Branham Work Phone: [facility]-Outpatient Breast Imaging Work Phone: Start: 09-11-2023 End: 09-11-[address] Travon Branham Work Phone: [facility] Work Phone: Start: 09-03-2023 End: 09-03-[address] Travon Branham Work Phone: [facility] Work Phone: Start: 09-03-2023 End: 09-03-[address] Travon Branham Work Phone: [facility]-Laboratory, Phy Office 3rd Flr Start: 07-25-2023 Non-patient / Non-visit Dr. Bill Branham Work Phone: [facility] Work Phone: Start: 07-24-2023 Non-patient / Non-visit Dr. Bill Branham Work Phone: [facility] Start: 07-24-2023 Non-patient / Non-visit Dr. Bill Branham Work Phone: [facility] Work Phone: Start: 07-24-2023 End: 07-25-2023 Evaluation and management of inpatient Dr. Travon Branham Work Phone: [facility]-Progressive Care Unit Work Phone: Start: 02-21-2023 End: 02-21-2023 ambulatory [facility] Work Phone: Start: 02-21-2023 End: 02-21-2023 Patient encounter procedure [facility]-Laboratory, Phy Office 3rd Flr Start: 02-21-2023 End: 02-21-2023 ambulatory [facility] Start: 08-30-2022 End: 08-30-2022 ambulatory [facility] Work Phone: Start: 08-30-2022 End: 08-30-2022 Patient encounter procedure [facility]-Laboratory, Phy Office 3rd Flr Start: 10-12-2021 End: 10-12-2021 Patient encounter procedure [facility]-Outpatient Breast Imaging Start: 08-28-2021 End: 08-28-2021 Patient encounter procedure [facility]-Laboratory, Phy Office 3rd Flr Start: 12-05-2017 End: 12-06-2017 Patient encounter procedure JESSI CUBA [facility] Procedures Date Procedure Procedure Detail Performing Clinician Start: 03-09-2025 Vitamin D, 25-hydrox y measurement Dr. Travon Branham MD Work Phone: Comment on above: Vitamin D StatusDefi ciency: <20 ng/mL (50nmol/L)Insufficiency: 20-30 ng/mL (50-75 nmol/L)Sufficiency: 30-100 ng/mL (75-250 nmol/L)Toxicity: >100 ng/mL (>250 nmol/L) Start: 12-22-2024 X-ray of lumbosacral spine Dr. Travon Branham MD Work Phone: Start: 12-19-2024 Urnls dip [...] Date Care Activity Detail Author Start: 12-19-2024 [facility] Start: 07-25-2023 Care planning and pr oblem solving actions [facility] Start: 07-25-2023 Patient discharge [facility] Start: 07-25-2023 Care planning and pr oblem solving actions [facility] Start: 07-24-2023 End: 07-25-2023 [facility] Start: 07-24-2023 Ambulation without limitation [facility] Start: 07-24-2023 Assessment of risk o f venous thromboembolism [facility] Start: 07-24-2023 Insertion of cathete r into peripheral vein [facility] Start: 07-24-2023 Measuring intake and output [facility] Start: 07-24-2023 Oxygen therapy [facility] Start: 07-24-2023 Providing care accor ding to standard [facility] Start: 07-24-2023 Following clinical p athway protocol [facility] Start: 07-24-2023 Admission procedure [facility] Start: 07-24-2023 Hospital admission, emergency, from emergency room, medical nature [facility] Start: 07-24-2023 [facility] Patient referral [facility] Work Phone: Payers Date Payer Category Payer Self-pay [id number] 2024 Unknown [id number] 1965 Unknown [id number]. 651 Private Health Insurance [facility] [id number] Unknown [id number]. 462 Unknown [id number] 2.16.840.1.105207.3.579.2. 462 Unknown [id number] 2.16.840.1.254495.3.579.2. 462 Unknown [id number] 2.16.840.1.736632.3.579.2. 462 Unknown [id number] 2.16.840.1.460321.3.579.2. 462 Unknown [id number] 2.16.840.1.579032.3.579.2. 462 Unknown [id number] 2.16.840.1.242341.3.579.2. 462 Unknown [id number] 2.16.840.1.647598.3.579.2. 462 Unknown [id number] 2.16.840.1.979084.3.579.2. 462 Unknown [id number] 2.16.840.1.440229.3.579.2. 462 Unknown [id number] 2.16.840.1.089513.3.579.2. 462 Unknown [id number] 2.16.840.1.861266.3.579.2. 462 Unknown [id number] 2.16.840.1.435739.3.579.2. 462 Unknown [id number] 2.16840.1.501341.3.579.2. 462 Unknown [id number] 2.16840.1.288647.3.579.2. 462 Unknown [id number] 2.16840.1.720362.3.579.2. 462 Social History Date Type Detail Facility [facility] Work Phone: Start: 1965 Sex Assigned At Female [facility] Start: 07-24-2023 End: 09-11-2023 Tobacco smoking status NHIS Unknown if ever smoked [facility] Start: 05-08-2024 End: 12-19-2024 Tobacco smoking status NHIS Never smoked tobacco (finding) [facility] Start: 09-23-2024 End: 10-12-2024 Sex Female (finding) [facility] Sex Female [facility] Functional Status Date Assessment Result Facility 07-25-2023 Functional status Ambulates;Bathroom Priv ilege [facility] Work Phone: Mental Status Date Assessment Result Facility 07-25-2023 Cognitive function Voice/Name [facility] Work Phone: Clinical Notes 07-24-2023 to 05-18-2025 Note Date & Type Note Facility 05-18-2025 Note [facility] Medical Records Department [address] [place] [address] Discharge Summary 05/18/25 1417 MR#: [id number] Acct: [id number] Name: FIONA VASQUEZ Rep #: [id number] : 1965 59 From: Fannie Quiñones MD PCP: Dr. Travon Branham MD Status:DIS IN Location: [place] [address]-1 Providers Date of Admission: 05/17/25 Date of Discharge: 05/18/25 Primary Care Physician: Dr. Travon Branham MD Consultations 05/17/25 15:06 Consult: Cardiology Routine Consulting Provider: Johnny Duarte Reason for Consult: afib rvr EMERGENT Consult: No MD Notified: Yes Date Notified: 05/17/25 Time Notified: 14:12 Method of Notification: ED Physician Initiated Reason For Visit: AFIB WITH RVR Diagnosis Discharge Diagnosis (1) Atrial fibrillation with rapid ventricular response: Status: Acute Code(s): I48.91 - Unspecified atrial fibrillation Plan #Afib w/ RVR-converted to sinus #Hypothyroidism Medications at Discharge Home Medications thyroid (pork) 60 mg tablet (Somis Thyroid) 60 mg PO DAILY THYROID 07/24/23 cholecalciferol (vitamin D3) 25 mcg (1,000 unit) capsule 25 mcg PO DAILY supplement 08/14/23 conj estrogen-medroxyprogesterone 0.3 mg-1.5 mg tablet (Prempro) 1 tab PO DAILY hormone health 12/19/24 tirzepatide (weight loss) 10 mg/0.5 mL subcutaneous pen injector (Zepbound) 10 mg subcut QWEEK weight management 04/30/25 amiodarone 200 mg tablet See Rx Instructions .Route .COMPLEX #30 tabs 05/18/25 apixaban 5 mg tablet (Eliquis) 5 mg PO BID 30 days #60 tabs 05/18/25 Hospital Course Summary of Care Provided Minutes Spent on Discharge: 25 Hospital Course: Per HPI: FIONA VASQUEZ, is a 59 F with a history of hypothyroidism, A-fib and hyperlipidemia who presented to [facility] ED 06/13/2024 with palpitations. Used to be on amiodarone and Eliquis for A-fib however due to [id number] of 1 for being female she was taken off of anticoagulation and ultimately was transition from amiodarone to p.o. metoprolol. Around 5 AM she notes she began to have palpitations and some lightheadedness when standing up. In the ED patient noted to be in A-fib with RVR with a heart rate of 155 and blood pressure 89/63. CBC within normal limits, BMP with a glucose 100 but otherwise within normal limits, mag 2.1, TSH 0.117. Cardiology contacted and recommended Amio bolus and p.o. Amio and if heart rate less than 120 she be discharged home however despite these interventions heart rate went back to 140s to 150s so hospitalist contacted for admission. Patient evaluated at bedside, reports still feeling palpitations but feeling better than she was, no longer feeling lightheaded. Denies any chest pain or shortness of breath, no other new or acute complaints. INTERVAL HISTORY: Patient feeling well overall with no new or acute complaints on day of discharge. Patient changed to p.o. Amio loading dose and converted to sinus rhythm in the morning 05/18/25, Amio drip stopped, patient was up and ambulating and remained in sinus rhythm, discussed with cardiology and patient cleared for discharge with the following discharge instructions: - You will need to follow-up in the cardiology office in 7 to 10 days, please call in discharge to schedule this appointment -You will be discharged on Eliquis 5 mg twice daily, you will need to take this uninterrupted -You will be discharged on amiodarone 400 mg twice daily for 4 more days after which she will switch to 200 mg twice daily for 2 weeks, further instructions can be provided at your cardiology follow-up appointment. This medicine has been sent to your preferred pharmacy on file -Please follow-up with your primary care physician to discuss your thyroid medication as you may need your labs repeated to see if further adjustments need to be made -You will stop taking your metoprolol on discharge and you will no longer take your aspirin -Please call your primary care provider's office upon discharge to schedule a hospital follow up within 1 week. -For any concerning signs or symptoms please call 911 or proceed to the nearest emergency department Physical Exam Narrative General: Alert, oriented, no apparent distress HEENT: Atraumatic, normocephalic Eyes: Anicteric, normal conjunctiva, extraocular movements grossly intact Neck: Supple Respiratory: Clear to auscultation bilaterally, normal respiratory effort Cardiovascular: Regular rate and rhythm GI: Soft, nontender, nondistended Extremities: No edema Musculoskeletal: Moving all extremities Neuro: No overt focal neurological deficits Skin: No rashes appreciated Psych: Cooperative Weight / BMI Weight Weight: 72 kg Body Mass Index (BMI) 26.4 ABG / Lab / Microbiology Data 05/18/25 05:15 05/18/25 05:15 Laboratory: Laboratory Results - last 24 hr 05/18/25 05:15: (more content not included)... [facility] 04-30-2025 Progress note [facility] 12-23-2024 Radiology Diagnostic study note [facility] Imaging Services [address] [place], [place] [address] L/S Spine Min 4 Views MR#: [id number] Acct: [id number] Name: FIONA VASQUEZ Rep #: [id number] : 1965 F 59 From: Allan Moore MD PCP: Dr. Travon Branham MD Status: JOSE ALBERTO TURCIOS Study:L/S Spine Min 4 Views Date of Exam: 12/22/24 Exam# [id number] Ordering Dr: Travon Branham MD PROCEDURE: L/S [...] evidence of pars defects. Spondylosis. [facility] CC: Dr. Travon Branham MD ~ Truck Hop: Signed [facility] 12-19-2024 Discharge summary [facility] 12-19-2024 Radiology Diagnostic study note [facility] Imaging Services [address] [place] [address] [id number] Abdomen/Pelvis W IV Cont ONLY MR#: [id number] Acct: [id number] Name: FIONA VASQUEZ Rep #: [id number] : 1965 F 59 From: Debbie Mcclelland MD PCP: Dr. Travon Branham MD Status: REG E R Study:Abdomen/Pelvis W IV Cont ONLY Date of E xam: 12/19/24 Exam# [id number] Ordering Dr: Sue Esquivel DO PROCEDURE: ABDOMEN/PELVIS [...] and pelvis. Large colonic stool. [facility] CC: Dr. Travon Branham MD; Dr. Freddie Esquivel, DO Truck Hop: Signed [facility] 10-29-2024 Evaluation note Diagnosis Onset Date Resolution Atrial fibrillation acute October 29, 2024 1:46pm [facility] Work Phone: 1(618) 466-223101-11-2024 Discharge summary Author Quinn Arnold [facility] July 25, 2023 11:32am Note Date/Time July 25, 2023 1 1:32am [facility] Medical Records Department [address] [place] [address] Discharge Summary 07/25/23 1122 MR#: [id number] Acct: [id number] Name: FIONA VASQUEZ Rep #:[id number] : 1965 57 From: Quinn Arnold MD PCP: Dr. Travon Branham MD Status:ADM I N Location: [place] [address] Providers Date of Admission: 07/24/23 Date of [...] ordered 2D echo and Cardizem drip. Patient's [id number] Score for Atrial Fibrillation Stroke Riskwas only 1 patient was therefore placed on only antiplatelet aspirin. ? 07/25/2023;Patient seen heart rate relatively well-controlled. Plan for patient to be discharged home with Cardizem and apixaban for subsequent follow-up with cardiology for possible cardioversion as outpatient 2. Hypothyroidism ? Patient is on Somis Thyroid 3. Class I obesity with BMI of 32 ? Weight loss advised 4. DVT prophylaxis ? Lovenox Time spent in the patient's overall evaluation,decision-making process, review of diagnostic data, adjustment of management, discussion with other providers, nursing nursing and ancillary staff involved in patient's care documentation,40 Minutes Medications at Discharge Home Medications thyroid (pork) 60 mg tablet (Somis Thyroid) 60 mg PO DAILY THYROID 07/24/23 [...] % (Auto) 61.4, Lymph % (Auto) 28.5, [place] % (Auto) 7.8, Eos % (Auto) 1.4, [...] Days Qty: 60 0RF Continued thyroid (pork) [Somis Thyroid] 60 mg tablet 60 mg PO [...] Self Care Charges/Coding Visit Charges Inpatient E&M: 94509 Disch Hosp >30min 07/25/23 1132 <Electronically signed by Quinn Arnold MD> Cosigner Signature (if applicable): CC: Dr. Quinn Arnold MD; Dr. Travon Branham MD~ Signed [facility] Work Phone: 1(205) 395-809401-11-2024 Progress note Author Quinn Arnold [facility] July 25, 2023 10:31am Note Date/Time July 25, 2023 9 :32am [facility] Medical Records Department [address] [place] [address] Progress Note - Hospitalist 07/25/23 0932 MR#: [id number] Acct: [id number] Name: FIONA VASQUEZ Rep #:[id number] : 1965 57 From: Quinn Arnold MD PCP: Dr. Travon Branham MD Status:ADM I N Location: [place] [address] Reason for Visit Reason for Visit: Diagnoses [...] % (Auto) 61.3, Lymph % (Auto) 30.1, [place] % (Auto) 6.7, Eos % (Auto) 1.0, [...] % (Auto) 61.4, Lymph % (Auto) 28.5, [place] % (Auto) 7.8, Eos % (Auto) 1.4, [...] ordered 2D echo and Cardizem drip. Patient's [id number] Score for Atrial Fibrillation Stroke Riskwas only 1 patient was therefore placed on only antiplatelet aspirin. ? 07/25/2023;Patient seen heart rate relatively well-controlled. Plan for patient to be discharged home with Cardizem and apixaban for subsequent follow-up with cardiology for possible cardioversion as outpatient 2. Hypothyroidism ? Patient is on Somis Thyroid 3. Class I obesity with BMI of 32 ? Weight loss advised 4. DVT prophylaxis ? Lovenox Time spent in the patient's overall evaluation,decision-making process, review of diagnostic data, adjustment of management, discussion with other providers, nursing nursing and ancillary staff involved in patient's care documentation,40 Minutes Charges/Coding Visit Charges Inpatient E&M: 40325 Subs Hosp L2 07/25/23 1031 <Electronically signed by Quinn Arnold MD> Cosigner Signature (if applicable): CC: ~ Signed [facility] Work Phone: 1(355) 573-791301-10-2024 History and physical note Author Quinn Arnold [facility] July 24, 2023 11:42am Note Date/Time July 24, 2023 1 1:18am [facility] Medical Records Department [address] [place] [address] H&P Exam - Hospitalist 07/24/23 1118 MR#: [id number] Acct: [id number] Name: FIONA VASQUEZ Rep #:[id number] : 1965 57 From: Quinn Arnold MD PCP: Dr. Travon Branham MD Status:ADM I N [facility] H[facility] - General General Date of Admission: 07/24/23 Date of Service: 07/24/23 Chief Complaint: Lightheadedness HPI Narrative FIONA VASQUEZ, is a 57 F who presents with lightheadedness. Patient has past medical history significant for hypothyroidism for which patient takes Somis Thyroid. Patient also has history of supraventricular [...] Taken Unknown] thyroid (pork) 60 mg tablet (Somis Thyroid) 60 mg PO DAILY THYROID 07/24/23 [...] % (Auto) 61.3, Lymph % (Auto) 30.1, [place] % (Auto) 6.7, Eos % (Auto) 1.0, [...] ordered 2D echo and Cardizem drip. Patient's [id number] Score for Atrial Fibrillation Stroke Riskwas only 1 patient was therefore placed on only antiplatelet aspirin. 2. Hypothyroidism ? Patient is on Somis Thyroid 3. Class I obesity with BMI of 32 ? Weight loss advised 4. DVT prophylaxis ? Lovenox Time spent in the patient's overall evaluation,decision-making process, review of diagnostic data, adjustment of management, discussion with other providers, nursing nursing and ancillary staff involved in patient's care documentation, 55 Minutes Charges/Coding Visit Charges Inpatient E&M: 69704 Init Hosp L2 07/24/23 1142 <Electronically signed by Quinn Arnold MD> Cosigner Signature (if applicable): CC: Dr. Quinn Arnold MD; Dr. Travon Branham MD~ Signed [facility] Work Phone: 1(652) 657-608401-10-2024 Discharge summary Author Jose Maria Smith [facility] July 24, 2023 11:18am Note Date/Time July 24, 2023 9 :52am [facility] Medical Records Department [address] [place] [address] Emergency Department Summary 07/24/23 MR#: [id number] Acct: [id number] Name: FIONA VASQUEZ Rep #:[id number] : 1965 57 From: Jose Maria Smith [...] fibrillation but she has never had it. [facility] Home Medications metoprolol succinate 25 mg tablet,extended release 24 hr 25 mg PO DAILY 07/24/23[History Last Taken Unknown] thyroid (pork) 60 mg tablet (Somis Thyroid) 60 mg PO DAILY 07/24/23 [History [...] % (Auto) 61.3 Lymph % (Auto) 30.1 [place] % (Auto) 6.7 Eos % (Auto) 1.0 [...] ventricular response Disposition Disposition: Acute Care Hospital [facility] What to do if you have Problems For any increased pain, shortness of breath, bleeding, nausea or vomiting, chestpain, or any unexpected problems, contact your Primary Care Provider. Call [employer] [facility] ([phone]) or report to the closest Emergency Room. Call 911 if necessary. 07/24/23 1118 <Electronically signed by Jose Maria Smith MD> Cosigner Signature (if applicable): CC: Dr. Travon Branham MD ~ Signed [facility] Work Phone: Consult note Author Angeline Romero [facility] July 25, 2023 4:49pm Note Date/Time July 25, 2023 4 :49pm [facility] Medical Records Department [address] [place] [address] Counseling Note - Pharmacy 07/25/23 1648 MR#: [id number] Acct: [id number] Name: FIONA VASQUEZ Rep #:[id number] : 1965 57 From: Angeline Romero PCP: Dr. Travon Branham MD Status:ADM I N Y Location: [place] [address] Pharmacy [facility] Service has performed discharge medication [...] Home Medications thyroid (pork) 60 mg tablet (Somis Thyroid) 60 mg PO DAILY THYROID 07/24/23 [...] Signature (if applicable): Date CC: ~ Signed [facility] Work Phone: Discharge summary Author Freddie Esquivel [facility] Note Date/Time December 19, 2024 12:24 pm [facility] Medical Records Department [address] [place] [address] Emergency Department Summary 12/19/24 MR#: [id number] Acct: [id number] Name: FIONA VASQUEZ Rep #:[id number] : 1965 59 From: Freddie Esquivel DO [...] abdominal surgeries including 3 C-sections and abdominoplasty. [facility] Medical History Hyperlipidemia Atrial fibrillation Fatigue Familial hypercholesterolemia due to heterozygous low density lipoprotein (LDL) receptor mutation Osteoarthritis Tachycardia Vitamin D deficiency Atrophic vaginitis Morbid obesity Hypothyroid Syncope Home Medications ?Medication ?Instructions ?Recorded ?Last Taken ?Type thyroid (pork) 60 mg tablet 60 mg PO DAILY THYROID 05/07 Unknown History (Somis Thyroid) cholecalciferol (vitamin D3) 25 25 mcg [...] follow commands knew that she was at [facility] the year is 2024 Skin: Warm, [...] % (Auto) 69.2 Lymph % (Auto) 23.2 [place] % (Auto) 5.9 Eos % (Auto) 0.8 [...] Sl. Cloudy Urine pH 6.5 Ur Specific [place] 1.010 Urine Protein Negative Urine Glucose (UA) [...] PO DAILY Qty: 1 0RF thyroid (pork) [Somis Thyroid] 60 mg tablet 60 mg PO [...] were sent to your pharmacy Print Language: Faroese Disposition Disposition: Home, Self Care What to do if you have Problems For any increased pain, shortness of breath, bleeding, nausea or vomiting, chestpain, or any unexpected problems, contact your Primary Care Provider. Call [facility] ([phone]) or report to the closest Emergency Room. Call 911 if necessary. 12/19/24 1224 <Electronically signed by Freddie Esquivel DO> Cosigner Signature (if applicable): CC: Dr. Travon Branham MD ~ Signed [facility] Work Phone: Evaluation noteNo assessment information available [facility] Work Phone: Evaluation note* Diagnosis Onset Date Resolution Status Atrial fibrillation with rapid ventricular response acute Family history of atrial dilatation acute Hx of thyroid disease acute [facility] Work Phone: Evaluation note* Diagnosis Onset Date Resolution Status Atrial fibrillation with rapid ventricular response resolved Family history of atrial dilatation resolved [facility] Work Phone: Evaluation note* Diagnosis Onset Date Resolution Status Atrial fibrillation with rapid ventricular response resolved Family history of atrial dilatation resolved Atrial fibrillation acute [facility] Work Phone: Evaluation note* Diagnosis Onset Date Resolution Status Admit Date Atrial fibrillation acute Octob er 2024 8:03am [facility] Work Phone: Hospital Discharge instructions Additional Instructions [...] as [facility] Work Phone: Progress note Author Candelaria Giang [facility] Note Date/Time April 30, 2025 8 :34am [facility] [place] [address] OFFICE VISIT Date of Service: 04/30/25 MR#: [id number] Acct: [id number] Name: FIONA VASQUEZ Rep #: [id number] : 1965 Provider: ELSIE Giang Age/Sex: 59/F Location: [facility] [place] Status: Signed HPI HPI History of Present Illness Details: Pleasant 59-year-old lady who presents to the office today for a cardiovascular follow-up visit. She had no previous cardiac history but a family history of atrial fibrillation. She tells me that she was admitted to the hospital in July of 2023 with an irregular heartbeat and was diagnosed as having atrial fibrillation. She had a rapid ventricular response rate she had a CTA of her chest with demonstrated no evidence of pulmonary embolism. She had an echocardiogram which demonstrated preserved ejection fraction of 55% with eccentric mild mitral regurgitation. She was placed on a beta-erica and calcium channel erica, and she spontaneously converted to sinus rhythm after aCardizem drip. She was discharged home on Cardizem and apixaban for possible cardioversion as an outpatient. From a cardiac standpoint, the patient is doing well. She denies any palpitations, chest pain, pressure or heaviness. She denies SOB, Orthopnea, and PND. She does not have bleeding issues; no blood in urine, stool, or nosebleeds.She denies any decrease in energy level, myalgias, or claudication. She does nothave edema, or sudden weight gain. She denies lightheadedness, dizziness, syncopal or near syncopal episodes, and headaches. Intake Vital Signs 10/29/24 14:05 12/19/24 10:08 04/30/25 07:51 Height 5 ft 5 in 5 ft 5 in 5 ft 5 in Weight: 160 lb BMI 26.6 BP 109/72 Blood Pressure Location Lt brachial Position Sitting Respiration 18 Pulse 93 Pulse Source Monitor Pulse Oximetry (%) 99 Oxygen Delivery Method room air Intake Visit Reasons: 6 M FU Gardening Manager Required: No Accompanied by: Self Is patient in pain?: No Allergies No Known Allergies Allergy (Verified 04/30/25 08:16) Medications ?Medication ?Instructions ?Recorded ?Confirmed ?Type thyroid (pork) 60 mg tablet 60 mg PO DAILY THYROID 05/0704/30/25 History (Somis Thyroid) cholecalciferol (vitamin D3) 25 25 mcg PO DAILY supple ment 08/14/23 04/30/25 History mcg (1,000 unit) capsule metoprolol tartrate 25 mg tablet 25 mg PO BID #60 tabs 05/09/24 04/30/25 Rx aspirin 81 mg tablet,delayed 81 mg PO DAILY #1 TAB 04/30/25 Rx release (Adult Aspirin Regimen) conj estrogen-medroxyprogesterone 1 tab PO DAILY 12/1904/30/25 History 0.3 mg-1.5 mg tablet (Prempro) tirzepatide (weight loss) 10 10 mg subcut QWEEK 04/30/25 History mg/0.5 mL subcutaneous pen injector (Zepbound) Ejection fraction %: 55 Have you fallen [...] servings: 2 ROS Const Const: Negative for fatigue, weakness or headache(s) Eyes Eyes: Negative for change in vision ENT ENT: Negative for headache(s), dizziness, Nosebleed/epistaxis or balance problems Cardio Chest Pain: No Palpitations: No Edema: None Resp Respiratory: Negative for SOB with activity GI GI: Negative nausea, vomiting, heartburn or bright, red blood in stools : Negative for hematuria Musc Musc: Negative for balance problems Neuro Neuro: Negative for dizziness, lightheadedness, syncope, headache(s) or weakness Endo Endo: Negative for fatigue Cardiology Exam Const Appearance: cooperative, no acute distress and well developed Nutritional Appearance: average body habitus and overweight Orientation: alert, awake and oriented x3 Head Head: normocephalic and atraumatic Ears: hearing grossly normal bilaterally Nose: external nose normal Face and Sinus: face symmetric Eyes General: appearance normal, both eyes and all related structures Eyelids: eyelids normal Conjunctivae: conjunctivae normal Pupils: PERRL EOM: EOM [...] gallop or murmur GI GI: normal to inspection and soft; Negative tender Neuro General: patient alert, patient awake, patient oriented x3, CN's II-XI intact bilaterally and moves all extremities Skin Skin: no rashes or lesions noted Extremities Pulses: Normal: Right Posterior Tibial Pulse, Left Posterior Tibial Pulse, RightRadial Pulse and Left Radial Pulse Lower Extremity Edema: None: Bilateral Psych Psychological: normal affect Supplemental Info Supplemental Information Echocardiogram 07/25/23 Interpretation Summary Normal LV size. Left ventricular systolic function is normal. The estimated ejection fraction is 55 %. Mild (1+) eccentric mitral valve insufficiency. CTA Chest 07/24/23 FINDINGS: Normal enhancement of the main pulmonary artery and right and left pulmonary arteries. Normal enhancement of the bilateral peripheral pulmonary arteries. There is no demonstrated pulmonary embolism. Normal thoracic aorta and visualized great vessels. There is no demonstrated aortic dissection. There is a single pacemaker electrode lead in satisfactory position. Assessment and Plan Assessment and Plan (1) Atrial fibrillation: Status: Acute Plan: Patient has a history of atrial fibrillation. Her most recent echocardiogram from 07/24/2023 demonstrated an ejection fraction of 55%, and normal atrial size. This was reviewed with patient. She appears to be in a normal rhythm on exam today. Her heart rate is well-controlled at this time. Her [id number]-OSRm score is 1. She does monitor her heart rhythm via Apple Watch. She denies any reoccurrence of atrial fibrillation. At this time she will continue aspirin 81 mg daily, and metoprolol tartrate 25 mg twice daily. She will continue to monitor for any concerning symptoms of atrial fibrillation. Plan Details Additional Comments: Patient will follow-up in 12 months, or sooner if needed. Thank you for allowing me to participate in the care of your patient. Please donot hesitate to call if any issues arise. This note was generated using a voice recognition system and there may be incorrect words, spelling, or punctuation that were not noted when reviewing theoffice note prior to saving. Portions of this documentation were copied and pasted from previous office visitnotes to provide cohesive continuity of the history. The note has been reviewed,edited, and updated, as necessary. Follow Up: 12 Months ([facility]) Coding Level of Care Code Off vis,est,level 3 Diagnoses Atrial fibrillation I48.91 Coding Level of Care Code Off vis,est,level 3 Diagnoses Atrial fibrillation I48.91 Clinical Quality Measures Falls Risk Screening/Assistive Devices Have you fallen in the past year?: No Cardiac Ejection fraction %: 55 04/30/25 0836 <Electronically signed by Candelaria Giang NP PATROL SUPERVISOR-C> Date _ Candelaria Giang NP PATROL SUPERVISOR-C Peggyigner Signature: Date (if applicable) CC: Dr. Travon Branham MD ~ [facility] Work Phone: Reason for referral (narrative)No reason for referral information availableWWayne [facility] Work Phone: Summary Purpose Family History No Family History Records Found Relationship Condition Age at Onset Recorded Date/T gwendolyn brother Heart failure Unknown mother Viral hepatitis A without hepatic coma Un known brother Atrial fibrillation Unknown sister Atrial fibrillation Unknown father Malignant neoplasm Unknown Advance Directives No Advanced Directives Records Found Advance Directive Response Recorded Date/ Time Name of Medical Power [facility] Staff [facility] July 24, 2023 12:05pm Living Will Yes July 24 12:05pm Power of Staff Design Engineer Yes July 24, 2023 12:05pm Advance Directive Response Recorded Date/ Time Name of Medical Power [facility] Staff [facility] July 24, 2023 1:05pm Living Will Yes July 24 1:05pm Power of Staff Design Engineer Yes July 24, 2023 1:05pm Advance Directive Response Recorded Date/ Time Living Will Yes July 24 1:05pm Do you have a Healthcare Power of Staff Design Engineer? Yes July 24, 2023 1:05pm Do you have a Healthcare Power of Staff Design Engineer? No December 19, 2024 10:07am Advance Directive Response Recorded Date/ Time Living Will Yes July 24 1:05pm Do you have a Healthcare Power of Staff Design Engineer? Yes July 24, 2023 1:05pm Advance Directive Response Recorded Date/ Time Do you have a Healthcare Power of Staff Design Engineer? No December 19, 2024 10:07am Chief Complaint [...] A-FIB WITH RVR NEW ONSET AFIB RVR ([facility]) SCREEN Reason for Visit Atrial fibrillation with [...] BACK PAIN December 22, 2024 3:17 pm Chief Complaint Admit Date flank pain December 19, 2024 10:07 am LOW BACK PAIN December 22, 2024 3:17 pm Chief Complaint Admit Date 6 M FU April 30, 2025 8 :03am Reason for Visit Admit Date Atrial fibrillation April 30, 2025 8 :03am Additional Source Comments INFORMATION SOURCE (unrecogn ized section and content) DATE CREATED AUTHOR 08/27/2018 [facility] DATE CREATED AUTHOR AUTHOR'S ORGANIZ ATION 02/23/2023 [facility] DATE CREATED AUTHOR AUTHOR'S ORGANIZ ATION 05/26/2025 [facility] Goals (unrecognized section and content) [...] Guilherme Epperson MD Family Provider Active Dr. Travon Branham MD Primary Care Provider [...] December 22, 2024 End: December 22, 2024 Team Status: Active Member Role/Relationship Status Dates Dr. Travon Branham MD Primary Care Provider Active Team Status: Inactive Member Role/Relationship Status Dates Dr. Travon Branham MD Primary Care Provider Active Start: December 10, 2024 End: December 10, 2024 Dr. Travon Branham MD Attending Provider Active Start: December 10, 2024 End: December 10, 2024 Dr. Travon Branham MD Referring Provider Active Start: December 10, 2024 End: December 10, 2024 Team Status: Inactive Member Role/Relationship Status Dates Dr. Travon Branham MD Primary Care Provider Active Start: December 19, 2024 End: December 19, 2024 Dr. Freddie Esquivel DO Attending Provider Active Start: December 19, 2024 End: December 19, 2024 Dr. Freddie Esquivel DO Emergency Provider Active Start: December 19, 2024 End: December 19, 2024 Team Status: Inactive Member Role/Relationship Status Dates Dr. Travon Branham MD Primary Care Provider Active Start: December 22, 2024 End: December 22, 2024 Dr. Travon Branham MD Attending Provider Active Start: December 22, 2024 End: December 22, 2024 Dr. Travon Branham MD Referring Provider Active Start: December 22, 2024 End: December 22, 2024 Team Status: Inactive Member Role/Relationship Status Dates Dr. Travon Branham MD Primary Care Provider Active Start: March 09, 2025 End: March 09, 2025 Dr. Travon Branham MD Attending Provider Active Start: March 09, 2025 End: March 09, 2025 Team Status: Active Member Role/Relationship Status Dates Dr. Travon Branham MD Primary care physician Active Team Status: Inactive Member Role/Relationship Status Dates Dr. Travon Branham MD Primary care physician Active Start: March 09, 2025 End: March 09, 2025 Dr. Travon Branham MD Attending physician Active Start: March 09, 2025 End: March 09, 2025 Team Status: Inactive Member Role/Relationship Status Dates Dr. Travon Branham MD Primary care physician Active Start: April 30, 2025 End: April 30, 2025 Dr. Travon Branham MD Referring Provider Active Start: April 30, 2025 End: April 30, 2025 Candelaria Giang NP, NP-Shala Attending physician Active Start: April 30, 2025 End: April 30, 2025 FOR RECORDS PERTAINING TO PATIENTS WHO ARE [...] BE BASED ON THE PRIMARY CLINICAL RECORDS. [employer] [facility]. provides no warranty or guarantee of the accuracy or completeness of information in this document.
== END | disposition home or self-care (01) ==
LOC: PSN 13:29
PROVIDERS: PCP Family Medicine Geriatric Medicine; Referring Provider Student in an Organized Health Care Education/Training Program; Visit Provider Student in an Organized Health Care Education/Training Program
DX: I48.0 Paroxysmal atrial fibrillation (principal)
CPT/HCPCS: 93225; 93226

== ENCOUNTER → 2025-07-13 | Outpatient (CLI) | payer BC, SELFPAY | END | disposition home or self-care (01) | LOC: POLAB3 11:57 | PROVIDERS: PCP Family Medicine Geriatric Medicine; Visit Provider Family Medicine Geriatric Medicine | DX: E03.9 Hypothyroidism, unspecified (principal); R06.2 Wheezing | CPT/HCPCS: 36415; 84443; 87631 ==